=== PATIENT | female | born 1950 | race African-American/Black ===

== ENCOUNTER 2017-07-13 20:13 | Observation (INO) | payer MEDICARE ==
[2017-07-13] MEDS ORDERED: Lidocaine Viscous Sol 2% 15 ml UD Cup ONE (20:29)
[2017-07-13] MEDS ORDERED: Ketorolac Tromethamine 30 MG/ML VIAL ONE (20:29)
--- NOTE | 2017-07-13 22:55 | RAD ---
ABDOMEN ONE VIEW: History: Abdominal pain. Comparison: None. FINDINGS: There is moderate stool burden throughout the colon. No dilated air filled loops of large or small matt wel. No abnormal calcifications. There are phleboliths in the pelvis. IMPRESSION: 1. Moderate stool burdened throughout the colon. 2. No evidence for obstruction. POS: LINDA
[2017-07-14 00:05] LABS: #Monocytes 0.5 thou/uL (0.11-0.59); #Neutrophils 6.7 thou/uL (1.40-6.50); %Basophils 0.3 % (0.0-1.0); %Eosinophils 0.4 % (0.0-10.0); %Lymphocytes 11.8 % (21.0-51.0); %Monocytes 5.6 % (0.0-10.0); %Neutrophils 81.8 % (42.0-75.0); Hemoglobin 10.8 g/dL (12.0-16.0); Mean Corpuscular HGB CONC 32.1 g/dL (32.0-36.0); Mean Corpuscular Hemoglobin 28.2 pg (27.0-31.0); Mean Platelet Volume 7.2 fL (7.4-10.4); Platelet Count 265 thou/uL (130-400); RBC Distribution Width 12.8 % (11.5-14.5); Red Blood Cell (RBC) Count 3.83 mill/uL (4.20-5.40); White Blood Cell (WBC) Count 8.2 thou/uL (4.8-10.8)
[2017-07-14 00:24] LABS: ALT (SGPT) 9 U/L (8-55); AST (SGOT) 16 U/L (5-34); Albumin 3.6 g/dL (3.4-4.8); Alkaline Phosphatase 77 U/L (40-150); Anion Gap 13 mmol/L (10-20); BUN (Urea Nitrogen) 41 mg/dL (9.8-20.1); Bilirubin, Total 0.9 mg/dL (0.2-1.2); Calc. Creatinine Clearance 0 mL/min (70-130); Calcium 8.8 mg/dL (7.8-10.44); Carbon Dioxide 20 mmol/L (23-31); Chloride 112 mmol/L (98-107); Estimated GFR-MDRD 29; Glucose 110 mg/dL (80-115); Potassium 5.2 mmol/L (3.5-5.1); Protein, Total 6.6 g/dL (6.0-8.3); Sodium 140 mmol/L (136-145)
[2017-07-14] MEDS ORDERED: GoLYTELY 4,000 ml Bottle PO SCH (02:15)
[2017-07-14] MEDS: Sodium Chloride 0.9% 1,000 ML IV SCH ×2 (03:28→11:08)
[2017-07-14] MEDS ORDERED: Acetaminophen 325 MG TAB PO PRN (04:39)
[2017-07-14] MEDS ORDERED: Senokot 8.6 MG TAB PO PRN (04:39)
[2017-07-14] MEDS ORDERED: Acetaminophen 650 MG Suppository PR PRN (04:39)
[2017-07-14] MEDS ORDERED: Bisacodyl 5 MG TAB PO PRN (04:39)
[2017-07-14] MEDS ORDERED: Bisacodyl 10 MG SUPP PR PRN (04:39)
[2017-07-14 04:46] VITALS: BMI 37.8
[2017-07-14] MEDS ORDERED: HumaLOG 300 UNITS/3 ML VIAL SC PRN (04:49)
[2017-07-14] MEDS ORDERED: Dextrose 50% Abboject 50 ML SYRINGE SLOW IVP PRN (04:49)
[2017-07-14] MEDS ORDERED: Dextrose 5% in Water 1,000 ML IV PRN (04:49)
--- NOTE | 2017-07-14 05:36 | HP ---
PRIMARY CARE PHYSICIAN: Dr. Josse Simpson CHIEF COMPLAINT: Constipation. HISTORY OF PRESENT ILLNESS: Ms. Reed is a pleasant 67-year-old lady, who was seen at [facility] on 07/14/2017. She reports that she has neuropathic pain. She takes tramadol for the same. She does not take any s tool softeners. She presents with constipation over the last 1 week. She initially reported abdomin al discomfort when she came to the emergency room, with pain that was dull and rated as 10/10. By th e time I saw her, she was passing flatus and she reported that her pain had improved significantly an d is no longer present. REVIEW OF SYSTEMS: The following complete review of systems was negative, unless otherwise mentioned in the HPI or below: Constitutional: Weight loss or gain, ability to conduct usual activities. Skin: Rash, itching. Eyes: Double vision, pain. ENT/Mouth: Nose bleeding, neck stiffness, pain, tenderness. Cardiovascular: Palpitations, dyspnea on exertion, orthopnea. Respiratory: Shortness of breath, wheezing, cough, hemoptysis, fever or night sweats. Gastrointestinal: Poor appetite, abdominal pain, heartburn, nausea, vomiting, constipation, or diarrhea. Genitourinary: Urgency, frequency, dysuria, nocturia. Musculoskeletal: Pain, swelling. Neurologic/Psychiatric: Anxiety, depression. Allergy/Immunologic: Skin rash, bleeding tendency. PAST MEDICAL HISTORY: Significant for diabetes mellitus type 2, dyslipidemia, hypertension, peripher al neuropathy, coronary artery disease and congestive heart failure. PAST SURGICAL HISTORY: Cataract surgery and tubal ligation. PSYCHIATRIC HISTORY: Anxiety. SOCIAL HISTORY: The patient denies tobacco use, alcohol use or recreational drug use. FAMILY HISTORY: She denies any family history of coronary artery disease. ALLERGIES: CLINDAMYCIN, CRESTOR, HYDROCODONE, HYDROXYZINE, LOSUVASTATIN, VICODIN and VISTARIL. CURRENT MEDICATIONS: Include alprazolam 0.5 mg p.r.n., metolazone 2.5 mg 3 times a day, Zofran p.r.n ., furosemide 40 mg daily, lisinopril 40 mg daily, hydralazine 10 mg 4 times a day, clonidine 0.2 mg 3 times a day, zolpidem 10 mg daily, tramadol 100 mg p.r.n., amlodipine 10 mg daily, carvedilol 12.5 mg 2 times a day, and ranitidine 75 mg daily. PHYSICAL EXAMINATION: GENERAL: Ms. Reed is awake and alert, not in acute distress. VITAL SIGNS: Blood pressure is 194/80, pulse is 60. She is breathing at rate of 16, and saturating 95% on room air. She is afebrile. EYES: No scleral icterus. No conjunctival pallor. ENT: Moist mucosal membranes, no oropharyngeal erythema or exudates. NECK: Supple, nontender, normal range of movement. Trachea is midline. RESPIRATORY: Accessory muscles of breathing are not active. Chest wall movements are symmetric bila terally. LUNGS: Clear to auscultation, without wheeze, rhonchi or crepitations. CARDIOVASCULAR: S1 and S2 are heard, regular. LUNGS: Peripheral pulses palpable. No carotid bruit, no pericardial rub. ABDOMEN: Soft, distended, nontender, bowel sounds are heard, but sluggish, no hepatomegaly, no splen omegaly. NEUROLOGIC: Cranial nerves II-XII intact. Deep tendon reflexes are 2+. MUSCULOSKELETAL: Power is 5/5 in all 4 extremities. SKIN: No rashes or subcutaneous nodules. LYMPHATIC: No cervical lymphadenopathy. PSYCHIATRIC: Normal mood, normal affect, patient is oriented to person, place, and time. LABORATORY DATA: Ms. Reed' labs and investigations were reviewed. She had abdominal x-rays, whi ch showed moderate stool burden throughout the colon and no evidence for obstruction. She has phlebo liths in the pelvis. She has a normal white count, normocytic anemia with hemoglobin of 10.8, normal platelet count, normal sodium, slightly elevated potassium of 5.2, decreased carbon dioxide of 20, e levated blood urea nitrogen of 41, elevated creatinine of 2.10, last known creatinine 2.30 on 017 and an unremarkable liver profile. ASSESSMENT AND PLAN: Ms. Reed is a pleasant 67-year-old lady, who was seen at [facility] on 07/14/2017. Her problem list includes: 1. Constipation: She is presenting with opioid-induced constipation. We will admit her to the hosp ital for further management. Multiple items with laxatives and a manual disimpaction in the emergenc y room by the emergency room physician were unsuccessful. She is now being started on GoLYTELY. [facility] tro[facility]ology Service has been consulted by emergency room physician. 2. Hyperkalemia: Mild, administer Kayexalate and recheck. 3. Chronic kidney disease: Appears to be stable. 4. Diabetes mellitus. Start Accu-Cheks, insulin sliding scale. 5. Hypertension: Monitor vital signs, titrate antihypertensives as needed. 6. Congestive heart failure. Continue home medications, congestive heart failure appears to be stab le. Many thanks for allowing me to participate in Ms. Reed' care. Please feel free to contact me wit h any questions or concerns. LEVEL OF RISK: Moderate. LEVEL OF COMPLEXITY: Moderate.
[2017-07-14] MEDS ORDERED: FLU VACC TS2017-18 (>65YR) 0.5 ML SYRINGE IM ONE (09:00)
[2017-07-14] MEDS ORDERED: Prevnar 13-Val Conj/PF 0.5 ML SYRINGE IM ONE (09:00)
[2017-07-14] MEDS ORDERED: Docusate 100 MG CAP PO SCH (09:00)
[2017-07-14 13:22] VITALS: BP 152/68; TEMP 97.7
--- NOTE | 2017-07-14 16:33 | DIS ---
DATE OF ADMISSION: 07/14/2017 DATE OF DISCHARGE: 07/14/2017 DISCHARGE DIAGNOSES: 1. Fecal impaction. 2. Obstipation. 3. Chronic diastolic congestive heart failure. 4. Chronic respiratory failure with hypoxia. 5. Anemia of renal disease. 6. Diabetes mellitus type 2. 7. Hyperlipidemia. 8. Essential hypertension. 9. Peripheral neuropathy. 10. Obesity. CONSULTATIONS: None. PROCEDURES: None. HISTORY AND PHYSICAL: Ms. Reed is a 67-year-old female who came to the emergenc y department for constipation. She was placed in observation status. HOSPITAL COURSE: The patient was seen and examined by Dr. Vickers. She was started on GoLYTELY. Manu al disimpaction had failed. Subsequently, this afternoon, she had several large bowel movements and relieved her obstruction and was feeling markedly better. She was stable for discharge with outpatie nt followup. PHYSICAL EXAMINATION: The patient was seen and examined on the day of discharge. DISCHARGE PLAN AND DISPOSITION: Was discussed with the patient [id number] at the bedside. DISCHARGE MEDICATIONS: 1. Tylenol 500 mg p.o. q.6 hours as needed. 2. Albuterol sulfate 2 puffs inhaled q.6 hours as needed. 3. Xanax 0.5 mg p.o. daily p.r.n. anxiety. 4. Amlodipine 10 mg daily. 5. Carvedilol 12.5 mg p.o. b.i.d. 6. Clonidine 0.2 mg p.o. t.i.d. 7. Lasix 40 mg daily. 8. Hydralazine 10 mg p.o. q.i.d. 9. Lisinopril 40 mg daily. 10. Metolazone 2.5 mg p.o. t.i.d. 11. Zofran 4 mg p.o. q.6 hours p.r.n. nausea, vomiting. 10. Ranitidine 75 mg daily. 11. Bactrim-DS 1 tablet p.o. b.i.d. 12. Tramadol 100 mg p.o. t.i.d. p.r.n. pain. 13. Ambien 10 mg p.o. at bedtime. NEW MEDICATION: MiraLax 17 grams orally daily. Instructions to get over the counter. FOLLOWUP APPOINTMENTS Dr. Simpson, primary care physician in 1 week. DISCHARGE CONDITION: Stable. DISPOSITION: To be discharged home via private vehicle. DISCHARGE ACTIVITY: As tolerated. DISCHARGE DIET: Regular. Increase fiber recommended.
== END 2017-07-14 19:06 | disposition home or self-care (01) ==
LOC: ERS 20:13 → T4-B 07-14 00:49
PROVIDERS: ADMIT Internal Medicine; ATTEND Internal Medicine
DX: K56.41 Fecal impaction (principal); I13.0 Hypertensive heart and chronic kidney disease with heart failure and stage 1 through stage 4 chronic kidney disease, or unspecified chronic kidney disease; E11.22 Type 2 diabetes mellitus with diabetic chronic kidney disease; N18.9 Chronic kidney disease, unspecified; I50.32 Chronic diastolic (congestive) heart failure; J96.11 Chronic respiratory failure with hypoxia; D63.1 Anemia in chronic kidney disease; E78.5 Hyperlipidemia, unspecified; E11.42 Type 2 diabetes mellitus with diabetic polyneuropathy; I25.10 Atherosclerotic heart disease of native coronary artery without angina pectoris; E87.5 Hyperkalemia; F41.9 Anxiety disorder, unspecified; E66.9 Obesity, unspecified; Z68.37 Body mass index [BMI] 37.0-37.9, adult; Z88.1 Allergy status to other antibiotic agents; Z88.8 Allergy status to other drugs, medicaments and biological substances; Z79.899 Other long term (current) drug therapy; Z98.890 Other specified postprocedural states
CPT/HCPCS: 74018; 80053; 82962; 85025; 96361; 96374; 97139; 99285; G0378; 36415; 36416; 90471; 90670; 90682; G0008; G0009; J1885; Q2036

== ENCOUNTER 2018-08-07 20:04 | Emergency (ER) | payer MEDICARE ==
--- NOTE | 2018-08-07 20:50 | RAD ---
FPA and lateral chest: HISTORY: Cough COMPARISON: 04/06/2015 Stranding in both midlung brock appear to represent chronic stranding or atelectasis. No evidence of inflammatory infiltrate or effusion. Heart size is mildly prominent but stable from prior exam. Aort ic calcification again noted. IMPRESSION: Bilateral parenchymal stranding appears chronic. No evidence of acute process. Similar
[2018-08-07] MEDS ORDERED: Acetaminophen 500 MG TAB ONE (21:03)
[2018-08-07] MEDS ORDERED: Bicillin LA 1.2 MILLION UNITS/2 ML SYRINGE ONE (21:07)
== END 2018-08-07 21:48 | disposition home or self-care (01) ==
LOC: ERS 20:04
DX: J02.0 Streptococcal pharyngitis (principal); I11.0 Hypertensive heart disease with heart failure; I50.9 Heart failure, unspecified; F41.9 Anxiety disorder, unspecified; E11.42 Type 2 diabetes mellitus with diabetic polyneuropathy; Z79.899 Other long term (current) drug therapy
CPT/HCPCS: 71046; 87430; 87804; 96372; J0561

== ENCOUNTER 2020-05-01 19:32 | Inpatient (IN) | payer MEDICARE ==
[2020-05-01] MEDS ORDERED: Dexamethasone 4 mg/ml Vial ONE (20:01)
[2020-05-01] MEDS ORDERED: Acetaminophen 500 MG TAB ONE (20:01)
[2020-05-01] MEDS ORDERED: Azithromycin 500 MG VIAL ONE (20:01)
[2020-05-01] MEDS ORDERED: Ketorolac Tromethamine 30 MG/ML VIAL ONE (20:02)
[2020-05-01] MEDS ORDERED: cefTRIAXone\\ROCEPHIN 2 GM VIAL ONE (20:02)
[2020-05-01] MEDS ORDERED: Ondansetron PF 4 MG/2 ML Vial ONE (20:02)
[2020-05-01 20:22] LABS: #Lymphocytes 0.8 thou/uL (1.20-3.40); #Monocytes 0.4 thou/uL (0.11-0.59); %Basophils 0.2 % (0.0-1.0); %Eosinophils 0.3 % (0.0-10.0); %Monocytes 9.6 % (0.0-10.0); %Neutrophils 71.9 % (42.0-75.0); Hemoglobin 9.8 g/dL (12.0-16.0); Mean Corpuscular HGB CONC 32.4 g/dL (32.0-36.0); Mean Corpuscular Hemoglobin 27.5 pg (27.0-31.0); Mean Corpuscular Volume 84.8 fL (78.0-98.0); Mean Platelet Volume 8.1 fL (7.4-10.4); Platelet Count 210 thou/uL (130-400); RBC Distribution Width 13.9 % (11.5-14.5); Red Blood Cell (RBC) Count 3.55 mill/uL (4.20-5.40); White Blood Cell (WBC) Count 4.1 thou/uL (4.8-10.8)
[2020-05-01 20:31] LABS: INR-International Normal Ratio 1.1; PTT 40.5 sec (22.9-36.1); Prothrombin Time 14.1 sec (12.0-14.7)
[2020-05-01 20:48] LABS: ALT (SGPT) 7 U/L (8-55); AST (SGOT) 17 U/L (5-34); Albumin 3.6 g/dL (3.4-4.8); Alkaline Phosphatase 72 U/L (40-110); Anion Gap 17 mmol/L (10-20); BUN (Urea Nitrogen) 30 mg/dL (9.8-20.1); Bilirubin, Total 1.4 mg/dL (0.2-1.2); CK (CPK) 75 U/L (29-168); Calc. Creatinine Clearance 0 mL/min (70-130); Calcium 8.2 mg/dL (7.8-10.44); Carbon Dioxide 18 mmol/L (23-31); Chloride 106 mmol/L (98-107); Globulin 3.2 g/dL (2.4-3.5); Glucose 101 mg/dL (80-115); Potassium 4.2 mmol/L (3.5-5.1); Protein, Total 6.8 g/dL (6.0-8.3); Sodium 137 mmol/L (136-145)
--- NOTE | 2020-05-01 20:51 | RAD ---
EXAM: Single view of the chest HISTORY: Fever with dry cough for 2 days COMPARISON: 04/09/2015 FINDINGS: Single view of the chest shows an enlarged but stable cardiomediastinal silhouette. Athero sclerotic calcifications are seen in the aorta. Increased interstitial markings are present. Subtle superimposed bilateral lower lobe infiltrates may be present. Degenerative changes are seen in the spine. IMPRESSION: Possible bilateral lower lobe infiltrates.
[2020-05-01 21:05] LABS: CKMB 0.3 ng/mL (0-6.6)
[2020-05-01 22:09] LABS: SARS-CoV-2 NAA Rapid Test DETECTED (NotDetected)
--- NOTE | 2020-05-02 00:16 | PDOC.HHP ---
Hospitalist HPI - History of Present Illness Fever, dry cough History of Present Illness: This is a 70-year-old female patient with a history of type 2 diabetes, hyperlipidemia hypercholesterolemia and hypertension who presents with fevers and general unwellness as well as cough for the past couple of days. Chest x- ray on initial evaluation was concerning for basal pneumonia and her Covid test turned out positive. She has been otherwise in stable health condition until this event. She notes having taken all precautions and has not been in contact with anybody she knows was Covid. Her presenting troponin was slightly elevated at 0.08 which is around her baseline. TSH was 0.27, CBC showed creatinine of 2.44 which is around her baseline. WBC 4.1, hemoglobin 9.8 and platelets 210. She was started on Tylenol, azithromycin and ceftriaxone for pneumonia and also received Decadron. She received a liter of normal saline as well. Hospitalist team was consulted for admission Hospitalist ROS - Review of Systems Constitutional: reports: fever, weakness, malaise. denies: chills, sweats Respiratory: reports: cough, dry. denies: shortness of breath, hemoptysis, SOB with excertion Cardiovascular: denies: chest pain, palpitations, orthopnea, paroxysmal noc. dyspnea Gastrointestinal: denies: nausea, vomiting, abdominal pain Genitourinary: denies: dysuria, frequency, incontinence Neurological: denies: weakness, numbness, incoordination All other systems reviewed; all pertinent +/- noted in HPI/Subj - Medication Medications: Medications: Can refer to outpatient medication list. Allergies: Clindamycin, hydroxyzine Hospitalist History - Past Medical History Other Medical History: CKD, hypertension, hyperlipidemia - Past Surgical History Other Surgical History: Cataract surgery, tubal ligation. - Family History Family History: reports: no pertinent history - Social History Smoking Status: Never smoker Alcohol: reports: None Activity level: independent ambulation - Exam General Appearance: awake alert Eye: PERRL, anicteric sclera Neck: supple, symmetric, no JVD, no thyromegaly Heart: RRR, no murmur, no gallops, no rubs Respiratory: CTAB, no wheezes, no rales, no ronchi Gastrointestinal: soft, non-tender, non-distended, normal bowel sounds Extremities: no cyanosis, no clubbing, no edema Neurological: cranial nerve grossly intact, no weakness, no focal deficits Musculoskeletal: normal tone, normal strength, no muscle wasting Psychiatric: normal affect, normal behavior, A&O x 3 Hospitalist Results - Labs Result Diagrams: 05/01/20 20:12 05/01/20 20:12 Lab results: WBC 4.1 thou/uL (4.8-10.8) L 05/01/20 20:12 Hgb 9.8 g/dL (12.0-16.0) L 05/01/20 20:12 Hct 30.2 % (36.0-47.0) L 05/01/20 20:12 MCV 84.8 fL (78.0-98.0) 05/01/20 20:12 Plt Count 210 thou/uL (130-400) 05/01/20 20:12 Neutrophils % 71.9 % (42.0-75.0) 05/01/20 20:12 Sodium 137 mmol/L (136-145) 05/01/20 20:12 Potassium 4.2 mmol/L (3.5-5.1) 05/01/20 20:12 Chloride 106 mmol/L (98-107) 05/01/20 20:12 Carbon Dioxide 18 mmol/L (23-31) L 05/01/20 20:12 BUN 30 mg/dL (9.8-20.1) H 05/01/20 20:12 Creatinine 2.44 mg/dL (0.6-1.1) H 05/01/20 20:12 Glucose 101 mg/dL (80-115) 05/01/20 20:12 Lactic Acid 0.9 mmol/L (0.5-2.2) 05/01/20 20:12 Calcium 8.2 mg/dL (7.8-10.44) 05/01/20 20:12 Total Bilirubin 1.4 mg/dL (0.2-1.2) H 05/01/20 20:12 AST 17 U/L (5-34) 05/01/20 20:12 ALT 7 U/L (8-55) L 05/01/20 20:12 Alkaline Phosphatase 72 U/L (40-110) 05/01/20 20:12 Creatine Kinase 75 U/L (29-168) 05/01/20 20:12 CK-MB (CK-2) 0.3 ng/mL (0-6.6) 05/01/20 20:12 Troponin I 0.080 ng/mL (< 0.028) H 05/01/20 20:12 Serum Total Protein 6.8 g/dL (6.0-8.3) 05/01/20 20:12 Albumin 3.6 g/dL (3.4-4.8) 05/01/20 20:12 Hospitalist H&P A/P - Plan Plan: This is a 70-year-old female patient with a history of CKD, hyperlipidemia who presents with fever and dry cough for couple of days. Initial assessment shows basilar pneumonia with positive Covid test. Pneumonia due to Covid Started on zinc and vitamins. Hold off remdesivir and steroids RCA still requiring oxygen. We will check ferritin and CRP and D-dimer Possible community-acquired pneumonia We will continue on azithromycin and ceftriaxone for now De-escalate as needed. CKD Renal function stable Monitor BMP Hypertension Resume home medications once verified. VT prophylaxisHeparin CODE STATUSfull code
[2020-05-02 05:25] LABS: #Lymphocytes 0.7 thou/uL (1.20-3.40); #Monocytes 0.1 thou/uL (0.11-0.59); #Neutrophils 3.2 thou/uL (1.40-6.50); %Eosinophils 0.1 % (0.0-10.0); %Lymphocytes 17.1 % (21.0-51.0); %Monocytes 2.3 % (0.0-10.0); %Neutrophils 80.5 % (42.0-75.0); Hemoglobin 10.2 g/dL (12.0-16.0); Mean Corpuscular HGB CONC 32.3 g/dL (32.0-36.0); Mean Corpuscular Hemoglobin 27.9 pg (27.0-31.0); Mean Corpuscular Volume 86.3 fL (78.0-98.0); Mean Platelet Volume 8.4 fL (7.4-10.4); Platelet Count 203 thou/uL (130-400); RBC Distribution Width 13.8 % (11.5-14.5); Red Blood Cell (RBC) Count 3.68 mill/uL (4.20-5.40)
[2020-05-02 05:47] LABS: Anion Gap 19 mmol/L (10-20); BUN (Urea Nitrogen) 39 mg/dL (9.8-20.1); Calc. Creatinine Clearance 28 mL/min (70-130); Calcium 7.8 mg/dL (7.8-10.44); Carbon Dioxide 16 mmol/L (23-31); Chloride 107 mmol/L (98-107); Glucose 185 mg/dL (80-115); Potassium 4.7 mmol/L (3.5-5.1); Sodium 137 mmol/L (136-145)
[2020-05-02] MEDS: Ascorbic Acid 500 mg Chewable Tablet PO SCH (08:55)
[2020-05-02] MEDS: Zinc Sulfate 220 MG CAP PO SCH (08:55)
[2020-05-02] MEDS: Heparin 5,000 UNITS/ML VIAL SC SCH ×3 (08:55→20:59)
[2020-05-02] MEDS: Cholecalciferol (Vitamin D3) 400 UNITS TAB PO SCH (08:55)
[2020-05-02] MEDS ORDERED: FLU VACC QS2020-21(65YR UP)/PF 240 MCG/0.7 ML SYRINGE IM ONE (09:00)
[2020-05-02] MEDS ORDERED: ALPRAZolam 0.5 MG TAB PO SCH (12:30)
[2020-05-02] MEDS ORDERED: Fleet Enema 133 ML BOT PR SCH (14:30)
[2020-05-02] MEDS ORDERED: hydrALAZINE 25 MG TAB PO SCH ×3 (14:30→21:00)
--- NOTE | 2020-05-02 16:09 | PDOC.BPN ---
- Brief Progress Note Encounter Date: 05/02/20 Encounter Time: 12:00 F/u: COVID The patient states she thought she was improving, but when she ambulated to the bathroom, she almost passed out. She does not know if her oxygen level was low. She denies cough , has some SOB Patient states she took her home BP medicines this morning without permission. She reports history of malignant hypertension with BP of 245/120. I checked her BP at 12:00 and it was 154 systolic, although cuff was slightly small Patient reports no BM in 3 weeks. She says miralax does nothing for her and requested an enema General: alert, awake, oriented times three. OVerweight CVS: RRR, no murmurs, rubs, gallops Lungs; CtAB Abdomen: +BS, soft, nontender, nondistended Extremities: no edema This is a 70 year old female with past medical history of hypertension, diabetes who presented to ED with fevers, malaise and cough. She was admitted. COVID pneumonia - continue supportive care. Will also continue ceftriaxone and azithromycin empiically Hypertension - resume coreg, hydralazine, amlodipine Constipation - will order enema Type II DM - continue sliding scale insulin CKD - stable, creatinine 2.5 Anemia - Hb stable, will monitor Leukopenia - WBC 4, likely from COVID, will monitor
[2020-05-02] MEDS: Carvedilol 6.25 MG TAB PO SCH (19:11)
[2020-05-02] MEDS ORDERED: Magnesium Citrate 300 ML BOT PO PRN (19:40)
[2020-05-02] MEDS: cefTRIAXone\\ROCEPHIN 1 GM in Sodium Chloride 0.9% 100 ML IVPB SCH (19:42)
[2020-05-02] MEDS: Azithromycin 500 MG in Sodium Chloride 0.9% 250 ML 250 ML IVPB SCH (20:57)
[2020-05-02] MEDS: traMADol HCl 50 MG TAB PO PRN (20:58)
[2020-05-02] MEDS: Zolpidem Tartrate 5 MG TAB PO PRN (20:58)
[2020-05-02] MEDS: cloNIDine 0.2 MG TAB PO SCH (20:58)
[2020-05-02] MEDS: ALPRAZolam 0.5 MG TAB PO SCH (20:59)
[2020-05-03 06:09] LABS: Hemoglobin 9.6 g/dL (12.0-16.0); Mean Corpuscular HGB CONC 31.8 g/dL (32.0-36.0); Mean Corpuscular Hemoglobin 27.3 pg (27.0-31.0); Mean Corpuscular Volume 85.7 fL (78.0-98.0); Mean Platelet Volume 8.6 fL (7.4-10.4); Platelet Count 228 thou/uL (130-400); RBC Distribution Width 13.9 % (11.5-14.5); Red Blood Cell (RBC) Count 3.52 mill/uL (4.20-5.40); White Blood Cell (WBC) Count 8.2 thou/uL (4.8-10.8)
[2020-05-03 06:40] LABS: BUN (Urea Nitrogen) 54 mg/dL (9.8-20.1); Calc. Creatinine Clearance 27 mL/min (70-130); Calcium 7.7 mg/dL (7.8-10.44); Chloride 108 mmol/L (98-107); Glucose 129 mg/dL (80-115); Potassium 4.3 mmol/L (3.5-5.1); Sodium 138 mmol/L (136-145)
[2020-05-03 06:54] LABS: Free T4 (Free Thyroxine) 1.12 ng/dL (0.70-1.48); Thyroid Stimulating Hormone 0.1349 uIU/mL (0.35-4.94)
[2020-05-03 07:06] LABS: Anion Gap 16 mmol/L (10-20); Carbon Dioxide 18 mmol/L (23-31)
[2020-05-03] MEDS: Cholecalciferol (Vitamin D3) 400 UNITS TAB PO SCH (10:01)
[2020-05-03] MEDS: cloNIDine 0.2 MG TAB PO SCH ×2 (10:02→20:38)
[2020-05-03] MEDS: Folic Acid 1 MG TAB PO SCH (10:02)
[2020-05-03] MEDS: Carvedilol 6.25 MG TAB PO SCH ×2 (10:02→17:09)
[2020-05-03] MEDS: Ascorbic Acid 500 mg Chewable Tablet PO SCH ×2 (10:02→13:38)
[2020-05-03] MEDS: hydrALAZINE 25 MG TAB PO SCH ×4 (10:03→20:38)
[2020-05-03] MEDS: Atorvastatin Calcium 40 MG TAB PO SCH ×2 (10:05→13:38)
[2020-05-03] MEDS: Zinc Sulfate 220 MG CAP PO SCH (10:05)
[2020-05-03] MEDS: Heparin 5,000 UNITS/ML VIAL SC SCH ×4 (10:05→20:41)
[2020-05-03] MEDS: Acetaminophen 325 MG TAB PO PRN ×2 (12:46→17:11)
[2020-05-03] MEDS ORDERED: traMADol HCl 50 MG TAB PO SCH (13:15)
[2020-05-03] MEDS: ALPRAZolam 0.5 MG TAB PO SCH ×2 (13:33→20:38)
--- NOTE | 2020-05-03 16:18 | PDOC.HOSPP ---
- Subjective Encounter Date: 05/03/20 Encounter Time: 08:00 Subjective: F/u: COVID She is starting to develop a dry cough. She also spiked a fever to 102 today and feels warm. She states that she has feverish symptoms when she is in pain. She still has severe fatigue just changing her bedsheets and doing ADL. All of her family members tested positive for COVID The patient says she feels weak. She complained of severe shooting nerve pain in her right leg, states she takes tramadol 100 mg at night and prn 100 mg during the day time Hypertension - patient refused her afternoon hydralazine per nursing Constipation - the patient had an enema yesterday but had no bowel movement. SHe is drinking some mag citrate now. Explained that narcotics could be making her constipated as well - Objective Vital Signs & Weight: Vital Signs (12 hours) Temp Pulse Resp BP Pulse Ox 05/03/20 12:54 102.5 F H 58 L 18 167/75 H 98 05/03/20 09:45 99.1 F 57 L 16 185/86 H 100 05/03/20 04:18 98.4 F 51 L 16 145/64 H 100 Weight Admit Weight 186 lb 4.8 oz Weight 186 lb 4.8 oz I&O: 05/02/20 05/03/20 05/04/20 06:59 06:59 06:59 Intake Total 120 850 Balance 120 850 Result Diagrams: 05/03/20 05:09 05/03/20 05:09 Hospitalist ROS - Review of Systems Constitutional: denies: fever, chills - Medication Medications: Active Medications Generic Name Dose Route Start Last Admin Trade Name Freq PRN Reason Stop Dose Admin Acetaminophen 650 mg 05/02/20 11:40 05/03/20 12:46 Acetaminophen 325 Mg Tab PO 650 mg Q6H PRN Administration Mild Pain Alprazolam 0.5 mg 05/02/20 21:00 05/03/20 13:33 Alprazolam 0.5 Mg Tab PO Not Given BID ESTER Ascorbic Acid 1,000 mg 05/02/20 09:00 05/03/20 13:38 Ascorbic Acid 500 Mg Chewable Tablet PO Not Given DAILY ESTER Atorvastatin Calcium 40 mg 05/03/20 09:00 05/03/20 13:38 Atorvastatin Calcium 40 Mg Tab PO Not Given DAILY ESTER Carvedilol 6.25 mg 05/02/20 17:00 05/03/20 10:02 Carvedilol 6.25 Mg Tab PO 6.25 mg BID- ESTER Administration Cholecalciferol 400 units 05/02/20 09:00 05/03/20 10:01 Cholecalciferol (Vitamin D3) 400 Units Tab PO 400 units DAILY ESTER Administration Clonidine 0.2 mg 05/02/20 21:00 05/03/20 10:02 Clonidine 0.2 Mg Tab PO 0.2 mg BID ESTER Administration Folic Acid 1 mg 05/03/20 09:00 05/03/20 10:02 Folic Acid 1 Mg Tab PO 1 mg DAILY ESTER Administration Heparin Sodium (Porcine) 5,000 units 05/02/20 09:00 05/03/20 14:34 Heparin 5,000 Units/Ml Vial SC Not Given TID ESTER Hydralazine HCl 75 mg 05/03/20 09:00 05/03/20 14:34 Hydralazine 25 Mg Tab PO Not Given TID ESTER Ceftriaxone Sodium 1 gm/ 100 mls @ 200 mls/hr 05/02/20 20:00 05/02/20 19:42 Sodium Chloride IVPB 100 mls 2000 ESTER Administration Azithromycin 500 mg/ Sodium 250 mls @ 250 mls/hr 05/02/20 21:00 05/02/20 20:57 Chloride IVPB 250 mls 2100 ESTER Administration Tramadol HCl 50 mg 05/02/20 19:40 05/02/20 20:58 Tramadol Hcl 50 Mg Tab PO 50 mg HS PRN Administration Severe Pain (7-10) Zinc Sulfate 220 mg 05/02/20 09:00 05/03/20 10:05 Zinc Sulfate 220 Mg Cap PO 220 mg DAILY ESTER Administration Zolpidem Tartrate 10 mg 05/02/20 19:39 05/02/20 20:58 Zolpidem Tartrate 5 Mg Tab PO 10 mg HSPRN PRN Administration Insomnia - Exam General Appearance: NAD, awake alert Eye: PERRL, anicteric sclera ENT: normocephalic atraumatic, no oropharyngeal lesions Neck: no JVD Heart: RRR, no murmur, no gallops, no rubs, normal peripheral pulses Respiratory: CTAB, no wheezes, no rales, no ronchi Gastrointestinal: soft, non-tender, non-distended, normal bowel sounds Extremities: no cyanosis, no clubbing, no edema Skin: normal turgor, no lesions, no rashes Hosp A/P - Plan This is a 70 year old female with past medical history of hypertension, diabetes who presented to ED with fevers, malaise and cough. She was admitted. COVID pneumonia - continue supportive care. Will continue ceftriaxone and azithromycin empiicall y Hypertension - resume coreg, hydralazine, amlodipine Constipation - enema ordered. Magnesium citrate ordered. Type II DM - continue sliding scale insulin CKD - stable, creatinine 2.5 Anemia - Hb stable, will monitor Leukopenia - WBC 4, likely from COVID, will monitor
[2020-05-03] MEDS ORDERED: Ondansetron ORAL SOLN. 4 MG/5 ML UDCUP PO PRN (17:50)
[2020-05-03] MEDS: Azithromycin 500 MG in Sodium Chloride 0.9% 250 ML 250 ML IVPB SCH (20:37)
[2020-05-03] MEDS: cefTRIAXone\\ROCEPHIN 1 GM in Sodium Chloride 0.9% 100 ML IVPB SCH (20:38)
[2020-05-03] MEDS: Zolpidem Tartrate 5 MG TAB PO PRN (20:40)
[2020-05-03] MEDS: traMADol HCl 50 MG TAB PO PRN (20:42)
[2020-05-04] MEDS ORDERED: Acetaminophen 500 MG TAB PO SCH (00:15)
[2020-05-04 05:19] LABS: Hemoglobin 9.3 g/dL (12.0-16.0); Mean Corpuscular HGB CONC 31.7 g/dL (32.0-36.0); Mean Corpuscular Hemoglobin 27.3 pg (27.0-31.0); Mean Corpuscular Volume 85.9 fL (78.0-98.0); Mean Platelet Volume 8.7 fL (7.4-10.4); Platelet Count 182 thou/uL (130-400); RBC Distribution Width 13.8 % (11.5-14.5); Red Blood Cell (RBC) Count 3.39 mill/uL (4.20-5.40); White Blood Cell (WBC) Count 4.2 thou/uL (4.8-10.8)
[2020-05-04] MEDS: Carvedilol 6.25 MG TAB PO SCH ×3 (07:29→17:10)
[2020-05-04] MEDS: Ascorbic Acid 500 mg Chewable Tablet PO SCH ×2 (07:29→08:08)
[2020-05-04] MEDS: ALPRAZolam 0.5 MG TAB PO SCH ×2 (07:29→22:14)
[2020-05-04] MEDS: Folic Acid 1 MG TAB PO SCH (07:30)
[2020-05-04] MEDS: Cholecalciferol (Vitamin D3) 400 UNITS TAB PO SCH (07:30)
[2020-05-04] MEDS: Atorvastatin Calcium 40 MG TAB PO SCH (07:30)
[2020-05-04] MEDS: Heparin 5,000 UNITS/ML VIAL SC SCH ×3 (07:30→21:20)
[2020-05-04] MEDS: cloNIDine 0.2 MG TAB PO SCH ×2 (07:30→22:14)
[2020-05-04] MEDS: hydrALAZINE 25 MG TAB PO SCH ×3 (07:31→22:14)
[2020-05-04] MEDS: Zinc Sulfate 220 MG CAP PO SCH (07:31)
--- NOTE | 2020-05-04 15:45 | PDOC.HOSPP ---
- Subjective Encounter Date: 05/04/20 Encounter Time: 08:00 Subjective: F/u: COVID The patient states she still has some fatigue on exertion. She is developing a mild cough. SHe did spike a fever to 103 overnight SHe doesn't feel like eating, but is requesting a fruit cup and orange juice - Objective Vital Signs & Weight: Vital Signs (12 hours) Temp Pulse Resp BP BP BP Pulse Ox 05/04/20 13:30 99.3 F 56 L 20 149/68 H 99 05/04/20 08:07 137/66 05/04/20 08:05 99.9 F H 53 L 20 137/66 95 05/04/20 07:31 53 L 05/04/20 03:46 99.7 F H 53 L 18 141/53 H 92 L Weight Admit Weight 186 lb 4.8 oz Weight 186 lb 4.8 oz I&O: 05/03/20 05/04/20 05/05/20 06:59 06:59 06:59 Intake Total 850 200 Output Total 200 Balance 850 -200 200 Result Diagrams: 05/04/20 04:54 05/03/20 05:09 Hospitalist ROS - Review of Systems Constitutional: denies: fever, chills - Medication Medications: Active Medications Generic Name Dose Route Start Last Admin Trade Name Freq PRN Reason Stop Dose Admin Acetaminophen 650 mg 05/02/20 11:40 05/03/20 17:11 Acetaminophen 325 Mg Tab PO 650 mg Q6H PRN Administration Mild Pain Alprazolam 0.5 mg 05/02/20 21:00 05/04/20 07:29 Alprazolam 0.5 Mg Tab PO 0.5 mg BID ESTER Administration Ascorbic Acid 1,000 mg 05/02/20 09:00 05/04/20 08:08 Ascorbic Acid 500 Mg Chewable Tablet PO Not Given DAILY ESTER Atorvastatin Calcium 40 mg 05/03/20 09:00 05/04/20 07:30 Atorvastatin Calcium 40 Mg Tab PO 40 mg DAILY ESTER Administration Carvedilol 6.25 mg 05/02/20 17:00 05/04/20 08:07 Carvedilol 6.25 Mg Tab PO Not Given BID-[facility] Cholecalciferol 400 units 05/02/20 09:00 05/04/20 07:30 Cholecalciferol (Vitamin D3) 400 Units Tab PO 400 units DAILY ESTER Administration Clonidine 0.2 mg 05/02/20 21:00 05/04/20 07:30 Clonidine 0.2 Mg Tab PO 0.2 mg BID ESTER Administration Folic Acid 1 mg 05/03/20 09:00 05/04/20 07:30 Folic Acid 1 Mg Tab PO 1 mg DAILY ESTER Administration Heparin Sodium (Porcine) 5,000 units 05/02/20 09:00 05/04/20 07:30 Heparin 5,000 Units/Ml Vial SC 5,000 units TID ESTER Administration Hydralazine HCl 75 mg 05/03/20 09:00 05/04/20 07:31 Hydralazine 25 Mg Tab PO 75 mg TID ESTER Administration Ceftriaxone Sodium 1 gm/ 100 mls @ 200 mls/hr 05/02/20 20:00 05/03/20 20:38 Sodium Chloride IVPB 100 mls 2000 ESTER Administration Azithromycin 500 mg/ Sodium 250 mls @ 250 mls/hr 05/02/20 21:00 05/03/20 2 0:37 Chloride IVPB 250 mls 2100 ESTER Administration Magnesium Citrate 300 ml 05/02/20 19:40 05/04/20 08:13 Magnesium Citrate 300 Ml Bot PO 300 ml DAILYPRN PRN Administration Constipation Zinc Sulfate 220 mg 05/02/20 09:00 05/04/20 07:31 Zinc Sulfate 220 Mg Cap PO 220 mg DAILY ESTER Administration Zolpidem Tartrate 10 mg 05/02/20 19:39 05/03/20 20:40 Zolpidem Tartrate 5 Mg Tab PO 10 mg HSPRN PRN Administration Insomnia - Exam General Appearance: NAD, awake alert Eye: PERRL, anicteric sclera ENT: normocephalic atraumatic, no oropharyngeal lesions Neck: no JVD Heart: RRR, no murmur, no gallops, no rubs Respiratory: CTAB, no wheezes, no rales, no ronchi Gastrointestinal: soft, non-tender, non-distended, normal bowel sounds, diminished bowl sounds Extremities: no cyanosis, no clubbing, no edema Skin: normal turgor, no lesions, no rashes Neurological: cranial nerve grossly intact, normal sensation to touch, no weakness Musculoskeletal: normal tone, normal strength, no muscle wasting Hosp A/P - Plan This is a 70 year old female with past medical history of hypertension, diabetes who presented to ED with fevers, malaise and cough. She was admitted. COVID pneumonia - continue supportive care. Will continue ceftriaxone and azithromycin empirically day 3 Hypertension - continue coreg, hydralazine, amlodipine Constipation - magnesium citrate prn Type II DM - continue sliding scale insulin CKD - stable, creatinine 2.66 Anemia - Hb stable, will monitor Leukopenia - WBC 4, likely from COVID, will monitor
[2020-05-04] MEDS: traMADol HCl 50 MG TAB PO PRN (17:23)
[2020-05-04] MEDS: Acetaminophen 325 MG TAB PO PRN (17:25)
[2020-05-04] MEDS: cefTRIAXone\\ROCEPHIN 1 GM in Sodium Chloride 0.9% 100 ML IVPB SCH (19:56)
[2020-05-04] MEDS: Azithromycin 500 MG in Sodium Chloride 0.9% 250 ML 250 ML IVPB SCH (21:20)
[2020-05-04] MEDS: Zolpidem Tartrate 5 MG TAB PO PRN (22:14)
[2020-05-05] MEDS: Acetaminophen 325 MG TAB PO PRN ×3 (00:14→07:38)
[2020-05-05] MEDS: traMADol HCl 50 MG TAB PO SCH ×2 (01:53→20:47)
[2020-05-05] MEDS ORDERED: Albuterol Sulfate 2.5 mg/3 ml Neb NEB PRN (03:51)
[2020-05-05] MEDS ORDERED: Dexamethasone 4 mg/ml Vial SLOW IVP SCH (04:00)
[2020-05-05 05:25] LABS: Hemoglobin 8.6 g/dL (12.0-16.0)
[2020-05-05 05:41] LABS: Lactic Acid 0.5 mmol/L (0.5-2.2)
[2020-05-05 05:45] LABS: Anion Gap 14 mmol/L (10-20); BUN (Urea Nitrogen) 50 mg/dL (9.8-20.1); Calc. Creatinine Clearance 26 mL/min (70-130); Calcium 7.2 mg/dL (7.8-10.44); Carbon Dioxide 18 mmol/L (23-31); Chloride 109 mmol/L (98-107); Glucose 92 mg/dL (80-115); Magnesium 2.3 mg/dL (1.6-2.6); Potassium 4.4 mmol/L (3.5-5.1); Sodium 137 mmol/L (136-145)
[2020-05-05] MEDS: Carvedilol 6.25 MG TAB PO SCH ×4 (06:56→17:30)
[2020-05-05] MEDS: Ascorbic Acid 500 mg Chewable Tablet PO SCH ×2 (07:37→08:35)
[2020-05-05] MEDS: cloNIDine 0.2 MG TAB PO SCH ×2 (07:37→20:46)
[2020-05-05] MEDS: Zinc Sulfate 220 MG CAP PO SCH ×2 (07:38→08:35)
[2020-05-05] MEDS: Folic Acid 1 MG TAB PO SCH ×2 (07:38→08:35)
[2020-05-05] MEDS: Atorvastatin Calcium 40 MG TAB PO SCH (07:38)
[2020-05-05] MEDS: hydrALAZINE 25 MG TAB PO SCH ×3 (07:38→20:47)
[2020-05-05] MEDS: Cholecalciferol (Vitamin D3) 400 UNITS TAB PO SCH ×2 (07:39→08:35)
[2020-05-05] MEDS: Heparin 5,000 UNITS/ML VIAL SC SCH ×3 (07:39→21:58)
[2020-05-05] MEDS: ALPRAZolam 0.5 MG TAB PO SCH ×3 (07:39→21:57)
--- NOTE | 2020-05-05 07:39 | RAD ---
Chest AP view INDICATION: Hypoxia COMPARISON: May 01, 2020 FINDINGS: Lungs: There is worsening bilateral lower lobe and right upper lobe airspace disease consistent with worsening pneumonia Cardiac silhouette: There is stable mild cardiomegaly Pulmonary vasculature: Normal Pleural spaces: No pleural effusion or pneumothorax is demonstrated. Upper abdomen: No abnormality seen. Osseous structures: No acute osseous abnormality. Additional findings: None. IMPRESSION: Worsening pneumonia
[2020-05-05] MEDS: Albuterol 200 PUFF (6.7GM INHALER) INH PRN (07:40)
--- NOTE | 2020-05-05 14:37 | PDOC.HOSPP ---
- Subjective Encounter Date: 05/05/20 Encounter Time: 12:45 Subjective: get sob on minimal exertion is trying to ambulate in the room she lives alone at home, all her other family members are sick with covid and are home quarantining - Objective Vital Signs & Weight: Vital Signs (12 hours) Temp Pulse Resp BP BP Pulse Ox 05/05/20 12:40 98.3 F 49 L 18 138/62 95 05/05/20 08:00 93 L 05/05/20 07:55 98.3 F 51 L 16 151/70 H 93 L 05/05/20 07:37 135/68 05/05/20 06:56 135/68 05/05/20 04:49 100.6 F H 05/05/20 04:19 101.1 F H 05/05/20 04:00 92 L 05/05/20 03:33 92 L 05/05/20 03:26 101.1 F H 57 L 16 136/65 85 L Weight Admit Weight 186 lb 4.8 oz Weight 186 lb 4.8 oz I&O: 05/04/20 05/05/20 05/06/20 06:59 06:59 06:59 Intake Total 250 Output Total 200 Balance -200 250 Result Diagrams: 05/05/20 05:11 05/05/20 05:11 Hospitalist ROS - Medication Medications: Active Medications Generic Name Dose Route Start Last Admin Trade Name Freq PRN Reason Stop Dose Admin Acetaminophen 650 mg 05/05/20 03:50 05/05/20 04:19 Acetaminophen 325 Mg Tab PO 650 mg Q4H PRN Administration Mild Pain Albuterol Sulfate 2 puff 05/05/20 03:59 05/05/20 07:40 Albuterol 200 Puff (6.7gm Inhaler) INH 2 puff [id number] PRN Administration Wheezing Alprazolam 0.5 mg 05/02/20 21:00 05/05/20 07:39 Alprazolam 0.5 Mg Tab PO 0.5 mg BID ESTER Administration Ascorbic Acid 1,000 mg 05/02/20 09:00 05/05/20 08:35 Ascorbic Acid 500 Mg Chewable Tablet PO Not Given DAILY ESTER Atorvastatin Calcium 40 mg 05/03/20 09:00 05/05/20 07:38 Atorvastatin Calcium 40 Mg Tab PO 40 mg DAILY ESTER Administration Carvedilol 6.25 mg 05/02/20 17:00 05/05/20 08:34 Carvedilol 6.25 Mg Tab PO Not Given BID-[facility] Cholecalciferol 400 units 05/02/20 09:00 05/05/20 08:35 Cholecalciferol (Vitamin D3) 400 Units Tab PO Not Given DAILY ESTER Clonidine 0.2 mg 05/02/20 21:00 05/05/20 07:37 Clonidine 0.2 Mg Tab PO 0.2 mg BID ESTER Administration Folic Acid 1 mg 05/03/20 09:00 05/05/20 08:35 Folic Acid 1 Mg Tab PO Not Given DAILY ESTER Heparin Sodium (Porcine) 5,000 units 05/02/20 09:00 05/05/20 07:39 Heparin 5,000 Units/Ml Vial SC 5,000 units TID ESTER Administration Hydralazine HCl 75 mg 05/03/20 09:00 05/05/20 07:38 Hydralazine 25 Mg Tab PO 75 mg TID ESTER Administration Ceftriaxone Sodium 1 gm/ 100 mls @ 200 mls/hr 05/02/20 20:00 05/04/20 19:56 Sodium Chloride IVPB 100 mls 2000 ESTER Administration Azithromycin 500 mg/ Sodium 250 mls @ 250 mls/hr 05/02/20 21:00 05/04/20 21:20 Chloride IVPB 250 mls 2100 ESTER Administration Magnesium Citrate 300 ml 05/02/20 19:40 05/04/20 08:13 Magnesium Citrate 300 Ml Bot PO 300 ml DAILYPRN PRN Administration Constipation Tramadol HCl 100 mg 05/03/20 23:21 05/04/20 17:23 Tramadol Hcl 50 Mg Tab PO 100 mg Q6H PRN Administration Pain Tramadol HCl 100 mg 05/04/20 21:00 05/05/20 01:53 Tramadol Hcl 50 Mg Tab PO Not Given HS [facility] Zinc Sulfate 220 mg 05/02/20 09:00 05/05/20 08:35 Zinc Sulfate 220 Mg Cap PO Not Given DAILY ESTER Zolpidem Tartrate 10 mg 05/02/20 19:39 05/04/20 22:14 Zolpidem Tartrate 5 Mg Tab PO 10 mg HSPRN PRN Administration Insomnia - Exam General Appearance: awake alert Eye: PERRL, anicteric sclera ENT: no oropharyngeal lesions, moist mucosa Neck: supple, no JVD Heart: RRR, no murmur Respiratory: no wheezes, rales, rhonchi Gastrointestinal: soft, non-tender, non-distended, normal bowel sounds Extremities: no cyanosis, no edema Neurological: cranial nerve grossly intact, no focal deficits Psychiatric: normal affect, A&O x 3 Hosp A/P (1) Pneumonia due to COVID-19 virus Code(s): U07.1 - COVID-19; J12.89 - OTHER VIRAL PNEUMONIA Status: Acute (2) Acute kidney injury superimposed on CKD Code(s): N17.9 - ACUTE KIDNEY FAILURE, UNSPECIFIED; N18.9 - CHRONIC KIDNEY DISEASE, UNSPECIFIED Status: Acute (3) Acute respiratory failure with hypoxia Code(s): J96.01 - ACUTE RESPIRATORY FAILURE WITH HYPOXIA Status: Acute (4) HTN (hypertension) Code(s): I10 - ESSENTIAL (PRIMARY) HYPERTENSION Status: Chronic Qualifiers: Hypertension type: essential hypertension Qualified Code(s): I10 - Ess ential (primary) hypertension (5) Dyslipidemia Code(s): E78.5 - HYPERLIPIDEMIA, UNSPECIFIED Status: Chronic (6) Peripheral neuropathy Code(s): G62.9 - POLYNEUROPATHY, UNSPECIFIED Status: Chronic Qualifiers: Peripheral neuropathy type: polyneuropathy, unspecified Qualified Code(s): G62.9 - Polyneuropathy, unspecified (7) Anemia of renal disease Code(s): D63.1 - ANEMIA IN CHRONIC KIDNEY DISEASE Status: Chronic (8) Metabolic acidosis Code(s): E87.2 - ACIDOSIS Status: Acute - Plan is on 3 lts nc, cxr shows worsening infiltrates, continue dexamethasone, dc antibiotics on coreg, clonidine and hydralazine, she also takes ambien chronically for insomnia at 10mg will add iv fluids with sod bicarb, d/w is at high risk for complications with multiple comorbid conditions dc plan likely in 36-48hrs on home O2.
[2020-05-05] MEDS ORDERED: Sodium Bicarbonate 50 MEQ in Dextrose 5% in Water 1,000 ML IV SCH (14:45)
[2020-05-05] MEDS ORDERED: Sodium Bicarbonate 150 MEQ in Dextrose 5% in Water 1,000 ML IV SCH (15:41)
[2020-05-05] MEDS: Zolpidem Tartrate 5 MG TAB PO PRN (20:53)
[2020-05-06] MEDS: Cholecalciferol (Vitamin D3) 400 UNITS TAB PO SCH (08:28)
[2020-05-06] MEDS: hydrALAZINE 25 MG TAB PO SCH ×3 (08:29→20:44)
[2020-05-06] MEDS: Zinc Sulfate 220 MG CAP PO SCH (08:29)
[2020-05-06] MEDS: Carvedilol 6.25 MG TAB PO SCH ×2 (08:29→08:43)
[2020-05-06] MEDS: NIFEdipine XL 60 MG TAB PO SCH (08:29)
[2020-05-06] MEDS: Atorvastatin Calcium 40 MG TAB PO SCH (08:29)
[2020-05-06] MEDS: Ascorbic Acid 500 mg Chewable Tablet PO SCH ×2 (08:29→08:41)
[2020-05-06] MEDS: Folic Acid 1 MG TAB PO SCH (08:29)
[2020-05-06] MEDS: ALPRAZolam 0.5 MG TAB PO SCH ×2 (08:30→20:42)
[2020-05-06] MEDS: Heparin 5,000 UNITS/ML VIAL SC SCH ×3 (08:32→20:43)
[2020-05-06] MEDS ORDERED: cloNIDine 0.1 MG TAB PO SCH (09:00)
[2020-05-06] MEDS ORDERED: Dexamethasone 4 mg/ml Vial SLOW IVP SCH (09:00)
[2020-05-06 10:08] LABS: Hemoglobin 9.7 g/dL (12.0-16.0); Mean Corpuscular HGB CONC 32.3 g/dL (32.0-36.0); Mean Corpuscular Hemoglobin 27.6 pg (27.0-31.0); Mean Corpuscular Volume 85.4 fL (78.0-98.0); Mean Platelet Volume 8.7 fL (7.4-10.4); Platelet Count 215 thou/uL (130-400); RBC Distribution Width 13.9 % (11.5-14.5); Red Blood Cell (RBC) Count 3.52 mill/uL (4.20-5.40); White Blood Cell (WBC) Count 4.5 thou/uL (4.8-10.8)
[2020-05-06 10:24] LABS: Anion Gap 16 mmol/L (10-20); BUN (Urea Nitrogen) 61 mg/dL (9.8-20.1); BUN/Creatinine Ratio 21.79; Calc. Creatinine Clearance 25 mL/min (70-130); Calcium 7.6 mg/dL (7.8-10.44); Carbon Dioxide 22 mmol/L (23-31); Chloride 104 mmol/L (98-107); Glucose 189 mg/dL (80-115); Phosphorus 3.2 mg/dL (2.3-4.7); Potassium 4.5 mmol/L (3.5-5.1); Sodium 137 mmol/L (136-145)
--- NOTE | 2020-05-06 12:19 | PDOC.HOSPP ---
- Subjective Encounter Date: 05/06/20 Encounter Time: 10:45 Subjective: sob is better, feels weak and dizzy to ambulate no chest pain or palpitations - Objective Vital Signs & Weight: Vital Signs (12 hours) Temp Pulse Resp BP BP Pulse Ox 05/06/20 08:45 48 L 05/06/20 07:40 98.4 F 50 L 16 160/72 H 97 05/06/20 03:39 157/72 H 05/06/20 03:38 179/78 H 05/06/20 03:18 98.2 F 53 L 26 H 189/81 H 97 Weight Admit Weight 186 lb 4.8 oz Weight 186 lb 4.8 oz I&O: 05/05/20 05/06/20 05/07/20 06:59 06:59 06:59 Intake Total 250 Output Total 300 300 Balance 250 -300 -300 Result Diagrams: 05/06/20 09:45 05/06/20 09:45 Hospitalist ROS - Medication Medications: Active Medications Generic Name Dose Route Start Last Admin Trade Name Freq PRN Reason Stop Dose Admin Acetaminophen 650 mg 05/05/20 03:50 05/05/20 04:19 Acetaminophen 325 Mg Tab PO 650 mg Q4H PRN Administration Mild Pain Albuterol Sulfate 2 puff 05/05/20 03:59 05/05/20 07:40 Albuterol 200 Puff (6.7gm Inhaler) INH 2 puff [id number] PRN Administration Wheezing Alprazolam 0.5 mg 05/02/20 21:00 05/06/20 08:30 Alprazolam 0.5 Mg Tab PO 0.5 mg BID ESTER Administration Ascorbic Acid 1,000 mg 05/02/20 09:00 05/06/20 08:41 Ascorbic Acid 500 Mg Chewable Tablet PO Not Given DAILY ESTER Atorvastatin Calcium 40 mg 05/03/20 09:00 05/06/20 08:29 Atorvastatin Calcium 40 Mg Tab PO 20 mg DAILY ESTER Administration Cholecalciferol 400 units 05/02/20 09:00 05/06/20 08:28 Cholecalciferol (Vitamin D3) 400 Units Tab PO 400 units DAILY ESTER Administration Dexamethasone 6 mg 05/06/20 09:00 05/06/20 08:30 Dexamethasone 4 Mg/Ml Vial SLOW IVP 6 mg DAILY ESTER Administration Folic Acid 1 mg 05/03/20 09:00 05/06/20 08:29 Folic Acid 1 Mg Tab PO 1 mg DAILY ESTER Administration Heparin Sodium (Porcine) 5,000 units 05/02/20 09:00 05/06/20 08:32 Heparin 5,000 Units/Ml Vial SC 5,000 units TID ESTER Administration Magnesium Citrate 300 ml 05/02/20 19:40 05/04/20 08:13 Magnesium Citrate 300 Ml Bot PO 300 ml DAILYPRN PRN Administration Constipation Nifedipine 60 mg 05/06/20 09:00 05/06/20 08:29 Nifedipine Xl 60 Mg Tab PO 60 mg DAILY ESTER Administration Tramadol HCl 100 mg 05/03/20 23:21 05/04/20 17:23 Tramadol Hcl 50 Mg Tab PO 100 mg Q6H PRN Administration Pain Tramadol HCl 100 mg 05/04/20 21:00 05/05/20 20:47 Tramadol Hcl 50 Mg Tab PO 100 mg HS ESTER Administration Zolpidem Tartrate 10 mg 05/02/20 19:39 05/05/20 20:53 Zolpidem Tartrate 5 Mg Tab PO 10 mg HSPRN PRN Administration Insomnia - Exam General Appearance: awake alert Eye: PERRL, anicteric sclera ENT: no oropharyngeal lesions, moist mucosa Neck: supple, no JVD Heart: RRR, no murmur Respiratory: no wheezes, no rales Gastrointestinal: soft, non-tender, non-distended, normal bowel sounds Extremities: no cyanosis, no edema Neurological: cranial nerve grossly intact, no focal deficits Psychiatric: normal affect, A&O x 3 Hosp A/P (1) Pneumonia due to COVID-19 virus Code(s): U07.1 - COVID-19; J12.89 - OTHER VIRAL PNEUMONIA Status: Acute (2) Acute kidney injury superimposed on CKD Code(s): N17.9 - ACUTE KIDNEY FAILURE, UNSPECIFIED; N18.9 - CHRONIC KIDNEY DISEASE, UNSPECIFIED Status: Acute (3) Acute respiratory failure with hypoxia Code(s): J96.01 - ACUTE RESPIRATORY FAILURE WITH HYPOXIA Status: Acute (4) HTN (hypertension) Code(s): I10 - ESSENTIAL (PRIMARY) HYPERTENSION Status: Chronic Qualifiers: Hypertension type: essential hypertension Qualified Code(s): I10 - Essential (primary) hypertension (5) Dyslipidemia Code(s): E78.5 - HYPERLIPIDEMIA, UNSPECIFIED Status: Chronic (6) Peripheral neuropathy Code(s): G62.9 - POLYNEUROPATHY, UNSPECIFIED Status: Chronic Qualifiers: Peripheral neuropathy type: polyneuropathy, unspecified Qualified Code(s): G62.9 - Polyneuropathy, unspecified (7) Anemia of renal disease Code(s): D63.1 - ANEMIA IN CHRONIC KIDNEY DISEASE Status: Chronic (8) Metabolic acidosis Code(s): E87.2 - ACIDOSIS Status: Acute - Plan is on 3 lts nc, cxr shows worsening infiltrates, continue dexamethasone on coreg and hydralazine, she also takes ambien chronically for insomnia at 10mg continue d5w without bicarb x 2 lts is at high risk for complications with multiple comorbid conditions dc plan likely in 36-48hrs on home O2 if renal function stabilizes. off clonidine and is on lower dose coreg due to bradycardia with rates dipping into 40's encourage po intake, is not eating much, maybe will change to regular diet to see if she will eat?
[2020-05-06] MEDS: Dextrose 5% in Water 1,000 ML IV SCH ×2 (13:23→20:49)
[2020-05-06] MEDS ORDERED: Mag-Al Plus 1200 MG/1200 MG/120 MG/30 ML UDCUP PO PRN (16:17)
[2020-05-06] MEDS: Ondansetron PF 4 MG/2 ML Vial IVP PRN (16:17)
[2020-05-06] MEDS: Carvedilol 3.125 MG TAB PO SCH (18:00)
[2020-05-06] MEDS: traMADol HCl 50 MG TAB PO SCH (20:45)
[2020-05-06] MEDS: Zolpidem Tartrate 5 MG TAB PO PRN (20:46)
[2020-05-07 05:59] LABS: #Lymphocytes 0.9 thou/uL (1.20-3.40); #Monocytes 0.5 thou/uL (0.11-0.59); #Neutrophils 4.7 thou/uL (1.40-6.50); %Basophils 0.3 % (0.0-1.0); %Eosinophils 0.1 % (0.0-10.0); %Lymphocytes 14.2 % (21.0-51.0); %Monocytes 7.8 % (0.0-10.0); %Neutrophils 77.6 % (42.0-75.0); Mean Corpuscular HGB CONC 32.1 g/dL (32.0-36.0); Mean Corpuscular Hemoglobin 27.2 pg (27.0-31.0); Mean Corpuscular Volume 84.7 fL (78.0-98.0); Mean Platelet Volume 8.7 fL (7.4-10.4); Platelet Count 292 thou/uL (130-400); RBC Distribution Width 13.7 % (11.5-14.5); Red Blood Cell (RBC) Count 3.69 mill/uL (4.20-5.40); White Blood Cell (WBC) Count 6.1 thou/uL (4.8-10.8)
[2020-05-07 06:41] LABS: Albumin 3.2 g/dL (3.4-4.8); Anion Gap 14 mmol/L (10-20); BUN (Urea Nitrogen) 56 mg/dL (9.8-20.1); BUN/Creatinine Ratio 20.29; Calc. Creatinine Clearance 26 mL/min (70-130); Calcium 7.5 mg/dL (7.8-10.44); Carbon Dioxide 20 mmol/L (23-31); Chloride 100 mmol/L (98-107); Glucose 207 mg/dL (80-115); Phosphorus 2.5 mg/dL (2.3-4.7); Potassium 4.4 mmol/L (3.5-5.1); Sodium 130 mmol/L (136-145)
[2020-05-07] MEDS: Dexamethasone 4 MG TAB PO SCH (08:03)
[2020-05-07] MEDS: hydrALAZINE 25 MG TAB PO SCH ×3 (08:04→22:55)
[2020-05-07] MEDS: ALPRAZolam 0.5 MG TAB PO SCH ×3 (08:06→21:25)
[2020-05-07] MEDS: Atorvastatin Calcium 40 MG TAB PO SCH (08:06)
[2020-05-07] MEDS: Folic Acid 1 MG TAB PO SCH (08:07)
[2020-05-07] MEDS: Cholecalciferol (Vitamin D3) 400 UNITS TAB PO SCH (08:08)
[2020-05-07] MEDS: NIFEdipine XL 60 MG TAB PO SCH (08:08)
[2020-05-07] MEDS: Carvedilol 3.125 MG TAB PO SCH ×2 (08:37→16:04)
[2020-05-07] MEDS: Ascorbic Acid 500 mg Chewable Tablet PO SCH (08:37)
[2020-05-07] MEDS: Heparin 5,000 UNITS/ML VIAL SC SCH ×3 (08:38→21:25)
--- NOTE | 2020-05-07 13:34 | PDOC.HOSPP ---
- Subjective Encounter Date: 05/07/20 Encounter Time: 11:00 Subjective: no sob, feels weak to ambulate no chest pain or palp - Objective Vital Signs & Weight: Vital Signs (12 hours) Temp Pulse Resp BP BP Pulse Ox 05/07/20 12:00 99.0 F 59 L 18 166/74 H 92 L 05/07/20 08:38 98.8 F 58 L 18 154/74 H 93 L 05/07/20 08:08 51 L 05/07/20 08:04 51 L 05/07/20 04:15 98.4 F 51 L 21 H 141/63 H 91 L Weight Admit Weight 186 lb 4.8 oz Weight 186 lb 4.8 oz I&O: 05/06/20 05/07/20 05/08/20 06:59 06:59 06:59 Intake Total 1450 Output Total 300 1400 Balance -300 50 Result Diagrams: 05/07/20 05:35 05/07/20 05:34 Hospitalist ROS - Medication Medications: Active Medications Generic Name Dose Route Start Last Admin Trade Name Freq PRN Reason Stop Dose Admin Acetaminophen 650 mg 05/05/20 03:50 05/05/20 04:19 Acetaminophen 325 Mg Tab PO 650 mg Q4H PRN Administration Mild Pain Albuterol Sulfate 2 puff 05/05/20 03:59 05/05/20 07:40 Albuterol 200 Puff (6.7gm Inhaler) INH 2 puff [id number] PRN Administration Wheezing Alprazolam 0.5 mg 05/02/20 21:00 05/07/20 08:37 Alprazolam 0.5 Mg Tab PO Not Given BID ESTER Ascorbic Acid 1,000 mg 05/02/20 09:00 05/07/20 08:37 Ascorbic Acid 500 Mg Chewable Tablet PO Not Given DAILY ESTER Atorvastatin Calcium 40 mg 05/03/20 09:00 05/07/20 08:06 Atorvastatin Calcium 40 Mg Tab PO 20 mg DAILY ESTER Administration Carvedilol 3.125 mg 05/06/20 17:00 05/07/20 08:37 Carvedilol 3.125 Mg Tab PO Not Given BID-[facility] Cholecalciferol 400 units 05/02/20 09:00 05/07/20 08:08 Cholecalciferol (Vitamin D3) 400 Units Tab PO 400 units DAILY ESTER Administration Dexamethasone 6 mg 05/07/20 08:00 05/07/20 08:03 Dexamethasone 4 Mg Tab PO 6 mg QAM-WM ESTER Administration Folic Acid 1 mg 05/03/20 09:00 05/07/20 08:07 Folic Acid 1 Mg Tab PO 1 mg DAILY ESTER Administration Heparin Sodium (Porcine) 5,000 units 05/02/20 09:00 05/07/20 08:38 Heparin 5,000 Units/Ml Vial SC Not Given TID ESTER Hydralazine HCl 100 mg 05/06/20 15:00 05/07/20 08:04 Hydralazine 25 Mg Tab PO 75 mg TID ESTER Administration Magnesium Citrate 300 ml 05/02/20 19:40 05/04/20 08:13 Magnesium Citrate 300 Ml Bot PO 300 ml DAILYPRN PRN Administration Constipation Nifedipine 60 mg 05/06/20 09:00 05/07/20 08:08 Nifedipine Xl 60 Mg Tab PO 60 mg DAILY ESTER Administration Ondansetron HCl 4 mg 05/03/20 17:50 05/06/20 16:17 Ondansetron Pf 4 Mg/2 Ml Vial IVP 4 mg Q6H PRN Administration Nausea/Vomiting Pantoprazole Sodium 40 mg 05/07/20 09:00 05/07/20 08:06 Pantoprazole 40 Mg Tab PO 40 mg DAILY ESTER Administration Tramadol HCl 100 mg 05/03/20 23:21 05/04/20 17:23 Tramadol Hcl 50 Mg Tab PO 100 mg Q6H PRN Administration Pain Tramadol HCl 100 mg 05/04/20 21:00 05/06/20 20:45 Tramadol Hcl 50 Mg Tab PO 100 mg HS ESTER Administration Zolpidem Tartrate 10 mg 05/02/20 19:39 05/06/20 20:46 Zolpidem Tartrate 5 Mg Tab PO 10 mg HSPRN PRN Administration Insomnia - Exam General Appearance: awake alert Eye: PERRL, anicteric sclera ENT: no oropharyngeal lesions, moist mucosa Neck: supple, no JVD Heart: RRR, no murmur Respiratory: no wheezes, no rales Gastrointestinal: soft, non-tender, non-distended, normal bowel sounds Extremities: no cyanosis, no edema Neurological: cranial nerve grossly intact, no focal deficits Psychiatric: A&O x 3 Hosp A/P (1) Pneumonia due to COVID-19 virus Code(s): U07.1 - COVID-19; J12.89 - OTHER VIRAL PNEUMONIA Status: Acute (2) Acute kidney injury superimposed on CKD Code(s): N17.9 - ACUTE KIDNEY FAILURE, UNSPECIFIED; N18.9 - CHRONIC KIDNEY DISEA SE, UNSPECIFIED Status: Acute (3) Acute respiratory failure with hypoxia Code(s): J96.01 - ACUTE RESPIRATORY FAILURE WITH HYPOXIA Status: Acute (4) HTN (hypertension) Code(s): I10 - ESSENTIAL (PRIMARY) HYPERTENSION Status: Chronic Qualifiers: Hypertension type: essential hypertension Qualified Code(s): I10 - Essential (primary) hypertension (5) Dyslipidemia Code(s): E78.5 - HYPERLIPIDEMIA, UNSPECIFIED Status: Chronic (6) Peripheral neuropathy Code(s): G62.9 - POLYNEUROPATHY, UNSPECIFIED Status: Chronic Qualifiers: Peripheral neuropathy type: polyneuropathy, unspecified Qualified Code(s): G62.9 - Polyneuropathy, unspecified (7) Anemia of renal disease Code(s): D63.1 - ANEMIA IN CHRONIC KIDNEY DISEASE Status: Chronic (8) Metabolic acidosis Code(s): E87.2 - ACIDOSIS Status: Resolved - Plan is on 3 lts nc, cxr shows worsening infiltrates, continue dexamethasone on coreg and hydralazine, she also takes ambien chronically for insomnia at 10mg continue d5w without bicarb x 2 lts, Creatinine around 2.5 at baseline is at high risk for complications with multiple comorbid conditions will need rehab/swing bed for dc plan but pt prefers to go home? off clonidine and is on lower dose coreg due to bradycardia with rates dipping into 40's which has resolved now. encourage po intake, is not eating much, but likes ensure cans, will change to regular diet to see if she will eat
[2020-05-07] MEDS ORDERED: hydrALAZINE 25 MG TAB PO SCH (21:15)
--- NOTE | 2020-05-07 21:16 | PDOC.EVN ---
Event Note - Event Note Event Note: Notified by RN, patient has hydralazine 100 mg PO TID ordered. She has been refusing to take it as she takes 75 mg PO TID at home. This is what she has been receiving while here therefore dose adjusted as per patient request (her BP has been in the 140s to 150s). Patient will discuss with day team if further adjustments needed to her usual home meds.
[2020-05-07] MEDS: traMADol HCl 50 MG TAB PO SCH (21:25)
[2020-05-08] MEDS ORDERED: Ondansetron ODT 4 MG TAB PO PRN (01:15)
[2020-05-08 06:13] LABS: Albumin 3.4 g/dL (3.4-4.8); Anion Gap 18 mmol/L (10-20); BUN (Urea Nitrogen) 71 mg/dL (9.8-20.1); BUN/Creatinine Ratio 19.29; Calc. Creatinine Clearance 19 mL/min (70-130); Calcium 7.8 mg/dL (7.8-10.44); Carbon Dioxide 20 mmol/L (23-31); Chloride 100 mmol/L (98-107); Glucose 209 mg/dL (80-115); Phosphorus 2.8 mg/dL (2.3-4.7); Potassium 4.7 mmol/L (3.5-5.1); Sodium 133 mmol/L (136-145)
[2020-05-08] MEDS: Dexamethasone 4 MG TAB PO SCH (10:39)
[2020-05-08] MEDS: hydrALAZINE 25 MG TAB PO SCH ×3 (10:40→21:20)
[2020-05-08] MEDS: Carvedilol 3.125 MG TAB PO SCH ×2 (10:41→16:25)
[2020-05-08] MEDS: NIFEdipine XL 60 MG TAB PO SCH (10:41)
[2020-05-08] MEDS: ALPRAZolam 0.5 MG TAB PO SCH ×2 (10:41→21:20)
[2020-05-08] MEDS: Heparin 5,000 UNITS/ML VIAL SC SCH ×3 (10:41→21:20)
[2020-05-08] MEDS: Folic Acid 1 MG TAB PO SCH (10:43)
[2020-05-08] MEDS: Cholecalciferol (Vitamin D3) 400 UNITS TAB PO SCH (10:43)
[2020-05-08] MEDS: Ascorbic Acid 500 mg Chewable Tablet PO SCH (10:43)
[2020-05-08] MEDS: Atorvastatin Calcium 40 MG TAB PO SCH (10:56)
[2020-05-08] MEDS ORDERED: Bisacodyl 10 MG SUPP PR PRN (12:46)
[2020-05-08] MEDS: Sodium Chloride 0.45% 1,000 ML IV SCH ×2 (14:01→17:43)
--- NOTE | 2020-05-08 14:11 | PQF ---
CLINICAL DOCUMENTATION CLARIFICATION FORM: Dear Dr. Adrian Date: 05/08/2020 Please exercise your independent, professional judgment in responding to the clarification form. Clinical indicators are provided on the bottom of this form for your review. Please check appropriate box(s): [ x ] Sepsis due to COVID-19 virus [ ] Localized Infection without Sepsis [ ] Other diagnosis [ ] Unable to determine In addition, please specify: Present on Admission (POA): [ x ] Yes [ ] No [ ] Unable to determine For continuity of documentation, please document condition throughout progress notes and discharge summary. Thank You. CLINICAL INDICATORS - SIGNS / SYMPTOMS / LABS / RESULTS AND LOCATION IN EMR *ED 05/01: Temp (max): 101.7 (oral) *PN 05/02 ([facility]): Leukopenia WBC 4, likely from COVID *LAB ([facility]): WBC Neutrophils % Lactic Acid CRP 05/01 4.1 71.9 0.9 05/02 4.0 80.5 1.74 05/03 8.2 05/04 4.2 05/05 0.5 05/06 4.5 05/07 6.1 77.6 *PN 05/03 ([facility]): She is starting to develop a dry cough. She also spiked a fever to 102 today and feels warm. *PN 05/04 ([facility]): She did spike a fever to 103 overnight. *[facility] * Acute kidney injury superimposed on CKD * Acute respiratory failure with hypoxia * Metabolic acidosis * Is on 3 lts nc, cxr shows worsening infiltrates, continue dexamethasone, dc antibiotics RISK FACTORS / RESULTS AND LOCATION IN EMR *H&P 05/02 ([facility]): * 70-year-old * History of type 2 diabetes . Hypertension * Pneumonia due to Covid TREATMENTS / RESULTS AND LOCATION IN EMR *ED 05/01: Azithromycin, Ceftriaxone, Decadron IV, NS 1l IV *H&P 05/02 ([facility]): We will continue on azithromycin and ceftriaxone for now *LAB ([facility]): CBC daily 05/01-05/04; 05/06,05/07; Lactic Acid 05/01, 05/05; CRP 05/02 *Microbiology 05/01 ([facility]): Blood Cultures (x2) *PN 05/05 ([facility]adeeshan): Is on 3 lts nc Continue dexamethasone Thank you, Traci CDS/Pecan Huller Signature: Traci Galaviz RN, CDS Phone #: [phone] [email or web address] This is a permanent part of the Medical Record [facility]
--- NOTE | 2020-05-08 14:49 | PDOC.HOSPP ---
- Subjective Encounter Date: 05/08/20 Encounter Time: 10:30 Subjective: no sob or chest pain is on nasal canula - Objective Vital Signs & Weight: Vital Signs (12 hours) Temp Pulse Resp BP BP Pulse Ox 05/08/20 14:30 98.8 F 67 16 147/67 H 97 05/08/20 10:41 72 05/08/20 10:40 72 05/08/20 10:28 98.6 F 72 16 167/73 H 96 05/08/20 03:27 98.7 F 66 20 140/65 92 L Weight Admit Weight 186 lb 4.8 oz Weight 185 lb 9.6 oz I&O: 05/07/20 05/08/20 05/09/20 06:59 06:59 06:59 Intake Total 1450 840 Output Total 1400 450 Balance 50 390 Result Diagrams: 05/07/20 05:35 05/08/20 04:58 Hospitalist ROS - Medication Medications: Active Medications Generic Name Dose Route Start Last Admin Trade Name Freq PRN Reason Stop Dose Admin Acetaminophen 650 mg 05/05/20 03:50 05/05/20 04:19 Acetaminophen 325 Mg Tab PO 650 mg Q4H PRN Administration Mild Pain Albuterol Sulfate 2 puff 05/05/20 03:59 05/05/20 07:40 Albuterol 200 Puff (6.7gm Inhaler) INH 2 puff [id number] PRN Administration Wheezing Alprazolam 0.5 mg 05/02/20 21:00 05/08/20 10:41 Alprazolam 0.5 Mg Tab PO 0.5 mg BID ESTER Administration Ascorbic Acid 1,000 mg 05/02/20 09:00 05/08/20 10:43 Ascorbic Acid 500 Mg Chewable Tablet PO Not Given DAILY ESTER Carvedilol 3.125 mg 05/06/20 17:00 05/08/20 10:41 Carvedilol 3.125 Mg Tab PO 3.125 mg BID-WM ESTER Administration Cholecalciferol 400 units 05/02/20 09:00 05/08/20 10:43 Cholecalciferol (Vitamin D3) 400 Units Tab PO Not Given DAILY ESTER Dexamethasone 6 mg 05/07/20 08:00 05/08/20 10:39 Dexamethasone 4 Mg Tab PO 6 mg QAM-WM ESTER Administration Folic Acid 1 mg 05/03/20 09:00 05/08/20 10:43 Folic Acid 1 Mg Tab PO Not Given DAILY ESTER Heparin Sodium (Porcine) 5,000 units 05/02/20 09:00 05/08/20 10:41 Heparin 5,000 Units/Ml Vial SC 5,000 units TID ESTER Administration Hydralazine HCl 75 mg 05/08/20 09:00 05/08/20 10:40 Hydralazine 25 Mg Tab PO 75 mg TID ESTER Administration Sodium Chloride 1,000 mls @ 100 mls/hr 05/08/20 07:45 05/08/20 14:01 1/2 Normal Saline IV 1,000 mls .Q10H ESTER Administration Magnesium Citrate 300 ml 05/02/20 19:40 05/04/20 08:13 Magnesium Citrate 300 Ml Bot PO 300 ml DAILYPRN PRN Administration Constipation Nifedipine 60 mg 05/06/20 09:00 05/08/20 10:41 Nifedipine Xl 60 Mg Tab PO 60 mg DAILY ESTER Administration Ondansetron HCl 4 mg 05/03/20 17:50 05/06/20 16:17 Ondansetron Pf 4 Mg/2 Ml Vial IVP 4 mg Q6H PRN Administration Nausea/Vomiting Ondansetron HCl 4 mg 05/08/20 01:15 05/08/20 14:20 Ondansetron Odt 4 Mg Tab PO 4 mg Q6H PRN Administration Nausea/Vomiting Pantoprazole Sodium 40 mg 05/07/20 09:00 05/08/20 10:40 Pantoprazole 40 Mg Tab PO 40 mg DAILY ESTER Administration Tramadol HCl 100 mg 05/03/20 23:21 05/04/20 17:23 Tramadol Hcl 50 Mg Tab PO 100 mg Q6H PRN Administration Pain Tramadol HCl 100 mg 05/04/20 21:00 05/07/20 21:25 Tramadol Hcl 50 Mg Tab PO 100 mg HS ESTER Administration Zolpidem Tartrate 10 mg 05/02/20 19:39 05/06/20 20:46 Zolpidem Tartrate 5 Mg Tab PO 10 mg HSPRN PRN Administration Insomnia - Exam General Appearance: awake alert Eye: PERRL, anicteric sclera ENT: no oropharyngeal lesions, dry oral mucosa Neck: supple, no JVD Heart: RRR, no murmur Respiratory: no wheezes, rales, rhonchi Gastrointestinal: soft, non-tender, non-distended, normal bowel sounds Extremities: no cyanosis, no edema Neurological: cranial nerve grossly intact, no focal deficits Psychiatric: A&O x 3 Hosp A/P (1) Pneumonia due to COVID-19 virus Code(s): U07.1 - COVID-19; J12.89 - OTHER VIRAL PNEUMONIA Status: Acute (2) Acute kidney injury superimposed on CKD Code(s): N17.9 - ACUTE KIDNEY FAILURE, UNSPECIFIED; N18.9 - CHRONIC KIDNEY DISEASE, UNSPECIFIED Status: Acute (3) Acute respiratory failure with hypoxia Code(s): J96.01 - ACUTE RESPIRATORY FAILURE WITH HYPOXIA Status: Acute (4) HTN (hypertension) Code(s): I10 - ESSENTIAL (PRIMARY) HYPERTENSION Status: Chronic Qualifiers: Hypertension type: essential hypertension Qualified Code(s): I10 - Essential (primary) hypertension (5) Dyslipidemia Code(s): E78.5 - HYPERLIPIDEMIA, UNSPECIFIED Status: Chronic (6) Peripheral neuropathy Code(s): G62.9 - POLYNEUROPATHY, UNSPECIFIED Status: Chronic Qualifiers: Peripheral neuropathy type: polyneuropathy, unspecified Qualified Code(s): G62.9 - Polyneuropathy, unspecified (7) Anemia of renal disease Code(s): D63.1 - ANEMIA IN CHRONIC KIDNEY DISEASE Status: Chronic (8) Metabolic acidosis Code(s): E87.2 - ACIDOSIS Status: Resolved - Plan is on 3 lts nc, cxr shows worsening infiltrates, continue dexamethasone on coreg and hydralazine, she also takes ambien chronically for insomnia at 10mg IV fluids, Creatinine around 2.5 at baseline is at high risk for complications with multiple comorbid conditions will need rehab/swing bed for dc plan, agrees to go to [place] swing bed. off clonidine and is on lower dose coreg due to bradycardia with rates dipping into 40's which has resolved now. encourage po intake, is not eating much despite changing to regular diet, drank only half a can of ensure whole day yesterday
[2020-05-08] MEDS: traMADol HCl 50 MG TAB PO PRN (16:23)
[2020-05-08] MEDS: traMADol HCl 50 MG TAB PO SCH (21:20)
[2020-05-08] MEDS: Senokot 8.6 MG TAB PO SCH (21:20)
[2020-05-09] MEDS: Sodium Chloride 0.45% 1,000 ML IV SCH ×3 (00:25→20:51)
[2020-05-09] MEDS: ALPRAZolam 0.5 MG TAB PO SCH ×2 (09:32→20:35)
[2020-05-09] MEDS: Carvedilol 3.125 MG TAB PO SCH ×2 (09:32→15:39)
[2020-05-09] MEDS: Dexamethasone 4 MG TAB PO SCH (09:32)
[2020-05-09] MEDS: Folic Acid 1 MG TAB PO SCH (09:33)
[2020-05-09] MEDS: Atorvastatin Calcium 20 MG TAB PO SCH (09:33)
[2020-05-09] MEDS: Senokot 8.6 MG TAB PO SCH ×2 (09:33→20:51)
[2020-05-09] MEDS: Cholecalciferol (Vitamin D3) 400 UNITS TAB PO SCH (09:33)
[2020-05-09] MEDS: hydrALAZINE 25 MG TAB PO SCH ×4 (09:33→20:50)
[2020-05-09] MEDS: NIFEdipine XL 60 MG TAB PO SCH (09:33)
[2020-05-09] MEDS: Ascorbic Acid 500 mg Chewable Tablet PO SCH (09:33)
[2020-05-09] MEDS: Heparin 5,000 UNITS/ML VIAL SC SCH ×3 (09:33→20:51)
[2020-05-09 10:27] LABS: Albumin 3.4 g/dL (3.4-4.8); Anion Gap 19 mmol/L (10-20); BUN (Urea Nitrogen) 80 mg/dL (9.8-20.1); BUN/Creatinine Ratio 20.41; Calc. Creatinine Clearance 18 mL/min (70-130); Calcium 7.7 mg/dL (7.8-10.44); Carbon Dioxide 19 mmol/L (23-31); Chloride 99 mmol/L (98-107); Glucose 186 mg/dL (80-115); Phosphorus 3.4 mg/dL (2.3-4.7); Potassium 4.5 mmol/L (3.5-5.1); Sodium 132 mmol/L (136-145)
--- NOTE | 2020-05-09 12:04 | CON ---
DATE OF CONSULTATION: REASON FOR CONSULTATION: Elevated creatinine. HISTORY OF PRESENT ILLNESS: This is a pleasant lady with a baseline creatinine of 2.4 on admission, which has increased to 3.9 progressively since admission. The patient remains hypertensive. The patient is being treated for COVID-19. The patient denies any nausea, vomiting, or chest pain. PAST MEDICAL HISTORY: Significant for CKD, hypertension, hyperlipidemia, tubal ligation. SOCIAL HISTORY: No alcohol or drug use. FAMILY HISTORY: Negative for ESRD. ALLERGIES: REVIEWED. HOME MEDICATION LIST: Reviewed. HOSPITAL MEDICATION LIST: Reviewed. REVIEW OF SYSTEMS: 10-point review of systems was performed, was negative except for positives noted above. HEENT: Eyes intact, no diplopia. Ears: No hearing loss or earache. Nose: No discharge or bleeding. Chest: No cough or phlegm. Abdomen: No nausea or vomiting. Genitourinary: No hematuria. No Do catheter. Musculoskeletal: No low back pain. No joint swelling or pain. Neurological: No syncope. No seizures. Skin: No complaints of rash or itching. Psychiatric: No depression. Constitutional: No weight loss or loss of appetite. PHYSICAL EXAMINATION: GENERAL: The patient is awake and alert. VITAL SIGNS: Pulse 75, breathing 16, blood pressure 164/72. HEENT: Head normocephalic and atraumatic. Eyes intact, no ulcers. Nose intact, no ulcers. Ears intact, no ulcers. Neck: Supple. No JVD. Chest: Symmetrical and clear. Cardiovascular: Shows S1 and S2, no rub, no murmur. Gastrointestinal: Abdomen is soft, bowel sounds positive. Extremities: Show no edema or ulcers. Skin: Shows no rash or petechiae. Musculoskeletal: Shows no joint swelling or stiffness. Genitourinary: Shows no Do or CVA tenderness. Neurologic: Motor intact. Cranial nerves intact. LABORATORY DATA: Labs show creatinine 3.9. ASSESSMENT: 1. Acute kidney injury with chronic kidney disease stage 5, most likely because of acute tubular necrosis and possible COVID-19 renal complications, and no urgent indication for dialysis. 2. Hypertension stable. 3. Metabolic acidosis, stable. 4. Medication based on GFR appropriate. No indication for dialysis. We will follow along closely. Job ID: [id number]
--- NOTE | 2020-05-09 12:51 | PDOC.HOSPP ---
- Subjective Encounter Date: 05/09/20 Encounter Time: 09:30 Subjective: feels weak, has loss of appetite, no sob says was trying to take shower in am and took her nasal canula off now ensure makes her nauseous which she stopped completely - Objective Vital Signs & Weight: Vital Signs (12 hours) Temp Pulse Resp BP BP Pulse Ox 05/09/20 11:06 76 05/09/20 10:59 98.6 F 76 24 H 189/81 H 94 L 05/09/20 09:33 75 05/09/20 09:05 98.6 F 75 20 164/72 H 92 L 05/09/20 03:20 98.5 F 76 20 175/73 H 93 L Weight Admit Weight 186 lb 4.8 oz Weight 185 lb 9.6 oz I&O: 05/08/20 05/09/20 05/10/20 06:59 06:59 06:59 Intake Total 840 200 Output Total 450 Balance 390 200 Result Diagrams: 05/07/20 05:35 05/09/20 09:22 Hospitalist ROS - Medication Medications: Active Medications Generic Name Dose Route Start Last Admin Trade Name Freq PRN Reason Stop Dose Admin Acetaminophen 650 mg 05/05/20 03:50 05/05/20 04:19 Acetaminophen 325 Mg Tab PO 650 mg Q4H PRN Administration Mild Pain Albuterol Sulfate 2 puff 05/05/20 03:59 05/05/20 07:40 Albuterol 200 Puff (6.7gm Inhaler) INH 2 puff [id number] PRN Administration Wheezing Alprazolam 0.5 mg 05/02/20 21:00 05/09/20 09:32 Alprazolam 0.5 Mg Tab PO Not Given BID ESTER Ascorbic Acid 1,000 mg 05/02/20 09:00 05/09/20 09:33 Ascorbic Acid 500 Mg Chewable Tablet PO Not Given DAILY [facility] Atorvastatin Calcium 20 mg 05/09/20 09:00 05/09/20 09:33 Atorvastatin Calcium 20 Mg Tab PO Not Given DAILY ESTER Carvedilol 3.125 mg 05/06/20 17:00 05/09/20 09:32 Carvedilol 3.125 Mg Tab PO Not Given BID-[facility] Cholecalciferol 400 units 05/02/20 09:00 05/09/20 09:33 Cholecalciferol (Vitamin D3) 400 Units Tab PO Not Given DAILY [facility] Dexamethasone 6 mg 05/07/20 08:00 05/09/20 09:32 Dexamethasone 4 Mg Tab PO Not Given QA-WM [facility] Folic Acid 1 mg 05/03/20 09:00 05/09/20 09:33 Folic Acid 1 Mg Tab PO Not Given DAILY ESTER Heparin Sodium (Porcine) 5,000 units 05/02/20 09:00 05/09/20 09:33 Heparin 5,000 Units/Ml Vial SC Not Given TID ESTER Hydralazine HCl 75 mg 05/08/20 09:00 05/09/20 11:06 Hydralazine 25 Mg Tab PO 75 mg TID ESTER Administration Sodium Chloride 1,000 mls @ 100 mls/hr 05/08/20 07:45 05/09/20 09:34 1/2 Normal Saline IV 1,000 mls .Q10H ESTER Administration Magnesium Citrate 300 ml 05/02/20 19:40 05/04/20 08:13 Magnesium Citrate 300 Ml Bot PO 300 ml DAILYPRN PRN Administration Constipation Nifedipine 60 mg 05/06/20 09:00 05/09/20 09:33 Nifedipine Xl 60 Mg Tab PO Not Given DAILY [facility] Ondansetron HCl 4 mg 05/03/20 17:50 05/06/20 16:17 Ondansetron Pf 4 Mg/2 Ml Vial IVP 4 mg Q6H PRN Administration Nausea/Vomiting Ondansetron HCl 4 mg 05/08/20 01:15 05/08/20 14:20 Ondansetron Odt 4 Mg Tab PO 4 mg Q6H PRN Administration Nausea/Vomiting Pantoprazole Sodium 40 mg 05/07/20 09:00 05/09/20 09:33 Pantoprazole 40 Mg Tab PO Not Given DAILY [facility] Senna 2 tab 05/08/20 21:00 05/09/20 09:33 Senokot 8.6 Mg Tab PO Not Given BID [facility] Tramadol HCl 100 mg 05/03/20 23:21 05/08/20 16:23 Tramadol Hcl 50 Mg Tab PO 100 mg Q6H PRN Administration Pain Tramadol HCl 100 mg 05/04/20 21:00 05/08/20 21:20 Tramadol Hcl 50 Mg Tab PO 100 mg HS ESTER Administration Zolpidem Tartrate 10 mg 05/02/20 19:39 05/06/20 20:46 Zolpidem Tartrate 5 Mg Tab PO 10 mg HSPRN PRN Administration Insomnia - Exam General Appearance: awake alert Eye: PERRL, anicteric sclera ENT: no oropharyngeal lesions, dry oral mucosa Neck: supple, no JVD Heart: RRR, no murmur Respiratory: no wheezes, rales, rhonchi Gastrointestinal: soft, non-tender, non-distended, normal bowel sounds Extremities: no cyanosis, no edema Neurological: cranial nerve grossly intact, no focal deficits Hosp A/P (1) Pneumonia due to COVID-19 virus Code(s): U07.1 - COVID-19; J12.89 - OTHER VIRAL PNEUMONIA Status: Acute (2) Acute kidney injury superimposed on CKD Code(s): N17.9 - ACUTE KIDNEY FAILURE, UNSPECIFIED; N18.9 - CHRONIC KIDNEY DISEASE, UNSPECIFIED Status: Acute (3) Acute respiratory failure with hypoxia Code(s): J96.01 - ACUTE RESPIRATORY FAILURE WITH HYPOXIA Status: Acute (4) HTN (hypertension) Code(s): I10 - ESSENTIAL (PRIMARY) HYPERTENSION Status: Chronic Qualifiers: Hypertension type: essential hypertension Qualified Code(s): I10 - Essential (primary) hypertension (5) Dyslipidemia Code(s): E78.5 - HYPERLIPIDEMIA, UNSPECIFIED Status: Chronic (6) Peripheral neuropathy Code(s): G62.9 - POLYNEUROPATHY, UNSPECIFIED Status: Chronic Qualifiers: Peripheral neuropathy type: polyneuropathy, unspecified Qualified Code(s): G62.9 - Polyneuropathy, unspecified (7) Anemia of renal disease Code(s): D63.1 - ANEMIA IN CHRONIC KIDNEY DISEASE Status: Chronic (8) Metabolic acidosis Code(s): E87.2 - ACIDOSIS Status: Resolved - Plan is on 5 lts nc, continue dexamethasone on coreg and hydralazine, she also takes ambien chronically for insomnia at 10mg IV fluids, progressive worsening of renal function due to poor oral intake and likely contribution from covid, Creatinine around 2.5 at baseline is at high risk for complications with multiple comorbid conditions will need rehab/swing bed for dc plan, agrees to go to [place] [facility]. off clonidine and is on lower dose coreg due to bradycardia with rates dipping into 40's which has resolved now. encourage po intake, is not eating much despite changing to regular diet
--- NOTE | 2020-05-09 13:35 | RAD ---
EXAM: CHEST ONE VIEW HISTORY: Follow-up Covid pneumonia. High oxygen requirement. COMPARISON: 05/05/2020 FINDINGS: There has been interval increase in patchy airspace opacities seen throughout the lungs bilaterally s uggesting worsening Covid pneumonia. No pleural effusion is evident. Cardiac silhouette is stable in size. No other interval change. IMPRESSION: Worsening Covid pneumonia.
[2020-05-09] MEDS: traMADol HCl 50 MG TAB PO PRN (13:37)
[2020-05-09] MEDS: cefTRIAXone\\ROCEPHIN 1 GM in Sodium Chloride 0.9% 100 ML IVPB SCH (15:30)
[2020-05-09] MEDS: Dexamethasone 4 mg/ml Vial SLOW IVP SCH (20:48)
[2020-05-09] MEDS: traMADol HCl 50 MG TAB PO SCH (20:49)
[2020-05-09] MEDS: Famotidine/PF 20 mg/2ml Vial SLOW IVP SCH (20:49)
[2020-05-09] MEDS: Ondansetron PF 4 MG/2 ML Vial IVP PRN (20:49)
[2020-05-09] MEDS: Albuterol 200 PUFF (6.7GM INHALER) INH PRN (20:52)
[2020-05-09] MEDS: Mometasone 200 MCG/Formoterol 5 MCG 120 PUFF INHALER INH SCH (21:45)
[2020-05-10 05:10] LABS: #Basophils 0.2 thou/uL (0.0-0.2); #Lymphocytes 1.1 thou/uL (1.20-3.40); #Monocytes 0.4 thou/uL (0.11-0.59); #Neutrophils 14.2 thou/uL (1.40-6.50); %Basophils 0.9 % (0.0-1.0); %Eosinophils 0.1 % (0.0-10.0); %Lymphocytes 6.7 % (21.0-51.0); %Monocytes 2.5 % (0.0-10.0); %Neutrophils 89.7 % (42.0-75.0); Hemoglobin 9.7 g/dL (12.0-16.0); Mean Corpuscular HGB CONC 32.1 g/dL (32.0-36.0); Mean Corpuscular Hemoglobin 27.3 pg (27.0-31.0); Mean Corpuscular Volume 84.9 fL (78.0-98.0); Mean Platelet Volume 7.8 fL (7.4-10.4); Platelet Count 400 thou/uL (130-400); RBC Distribution Width 14.1 % (11.5-14.5); Red Blood Cell (RBC) Count 3.55 mill/uL (4.20-5.40); White Blood Cell (WBC) Count 15.9 thou/uL (4.8-10.8)
[2020-05-10] MEDS: Mometasone 200 MCG/Formoterol 5 MCG 120 PUFF INHALER INH SCH ×2 (05:26→18:12)
--- NOTE | 2020-05-10 06:25 | CON ---
DATE OF CONSULTATION: 05/09/2020 HISTORY OF PRESENT ILLNESS: A 70-year-old female who has been in the hospital since 05/01/2020. Today is 05/09/2020. We have been consulted regarding worsening pulmonary status. The patient apparently has been noncompliant with her medication including blood pressure medicine. She then developed worsening symptoms today. It is unclear from her notes what medicine she received if any at all during the last 10 days or so in the hospital. She presented to the ER on 05/01 with worsening shortness of breath of 3 weeks' duration. Admission temperature was 101.7, admission pulse was 60, admission saturation 100% on room air, and respirations 16. Nonsmoker. Coughing up some relatively clear sputum. PAST MEDICAL HISTORY: 1. Diabetes. 2. Hyperlipidemia. 3. High cholesterol. 4. Hypertension. 5. Neuropathy. 6. Chronic renal failure. 7. Congestive heart failure. PREVIOUS SURGERY: 1. Cataract surgery. 2. Tubal ligation. SOCIAL HISTORY: No drug use. No alcohol use. HOME MEDICATIONS: 1. Xanax twice a day 0.5. 2. Norvasc 10. 3. Lipitor 0.5. 4. Coreg 6.25. 5. Lasix 80 b.i.d. 6. Ambien 10. 7. Catapres 0.2 b.i.d. 8. Hydralazine 75. 9. Tramadol p.r.n. ALLERGIES: CLINDAMYCIN AND CRESTOR. REVIEW OF SYSTEMS: Ten-point negative. PHYSICAL EXAMINATION: GENERAL: She is on 6 L saturation of 94%, respiratory rate 24, temperature 98, pulse 76, blood pressure 189/81. CHEST: Rhonchi and crackles. CARDIAC: Normal S1 and S2. No gallop. ABDOMEN: No masses. LABORATORY DATA: Shows worsening renal failure. Creatinine 3.92 and BUN 80. X-ray shows worsening bilateral pulmonary infiltrates. White count 6000, hemoglobin and hematocrit of 10 and 31, and platelet count 292. ANESTHESIA: 1. Worsening respiratory failure secondary to lim positive pneumonia. 2. Possible superimposed congestive heart failure. 3. Fluid overload. 4. Renal failure. 5. Hypertension. 6. Noncompliant. PLAN: 1. A bag of plasma has been ordered convalescent if she agrees to take so. Suggest to call Infectious Disease to see whether she qualifies for remdesivir. She has been here for several days. Empiric antibiotics will be initiated. 2. High-dose steroids. 3. We will follow. TIME SPENT: Consultation note in 70 minutes, 50% in direct patient care. Job ID: [id number]
[2020-05-10] MEDS: Cholecalciferol (Vitamin D3) 400 UNITS TAB PO SCH (08:16)
[2020-05-10] MEDS: ALPRAZolam 0.5 MG TAB PO SCH ×2 (08:16→21:48)
[2020-05-10] MEDS: Senokot 8.6 MG TAB PO SCH ×2 (08:16→21:46)
[2020-05-10] MEDS: NIFEdipine XL 60 MG TAB PO SCH (08:16)
[2020-05-10] MEDS: hydrALAZINE 25 MG TAB PO SCH ×3 (08:16→21:46)
[2020-05-10] MEDS: Folic Acid 1 MG TAB PO SCH (08:16)
[2020-05-10] MEDS: Famotidine/PF 20 mg/2ml Vial SLOW IVP SCH ×2 (08:17→21:45)
[2020-05-10] MEDS: Carvedilol 3.125 MG TAB PO SCH ×2 (08:17→18:12)
[2020-05-10] MEDS: Atorvastatin Calcium 20 MG TAB PO SCH (08:17)
[2020-05-10] MEDS: Dexamethasone 4 mg/ml Vial SLOW IVP SCH ×2 (08:17→21:45)
[2020-05-10] MEDS: Heparin 5,000 UNITS/ML VIAL SC SCH ×3 (08:17→21:45)
[2020-05-10] MEDS: Ascorbic Acid 500 mg Chewable Tablet PO SCH (08:17)
[2020-05-10 10:35] LABS: Hemoglobin 9.4 g/dL (12.0-16.0)
[2020-05-10 10:53] LABS: Anion Gap 18 mmol/L (10-20); BUN (Urea Nitrogen) 79 mg/dL (9.8-20.1); Calc. Creatinine Clearance 21 mL/min (70-130); Calcium 7.8 mg/dL (7.8-10.44); Carbon Dioxide 18 mmol/L (23-31); Chloride 100 mmol/L (98-107); Glucose 197 mg/dL (80-115); Potassium 4.9 mmol/L (3.5-5.1); Sodium 131 mmol/L (136-145)
--- NOTE | 2020-05-10 10:59 | PRG ---
DATE OF SERVICE: 05/10/2020 SUBJECTIVE: This 70-year-old being seen for acute kidney injury. The patient denies nausea, vomiting, or chest pain. PHYSICAL EXAMINATION: General: The patient is awake and alert. Vital Signs: Afebrile, pulse 81, breathing at 16, blood pressure 154/94. HEENT: Head normocephalic and atraumatic. Eyes intact, no ulcers. Nose intact, no ulcers. Ears intact, no ulcers. Neck: Supple. No JVD. Chest: Symmetrical and clear. Cardiovascular: Shows S1 and S2, no rub, no murmur. Gastrointestinal: Abdomen is soft, bowel sounds positive. Extremities: Show no edema or ulcers. Skin: Shows no rash or petechiae. Musculoskeletal: Shows no joint swelling or stiffness. Genitourinary: Shows no Do or CVA tenderness. Neurologic: Motor intact. Cranial nerves intact. LABORATORY DATA: Hemoglobin 9.7. Creatinine is pending. ASSESSMENT AND PLAN: 1. Acute kidney injury with chronic kidney disease multifactorial. I will evaluate the need for dialysis daily. 2. Anemia, stable. 3. Medication based on GFR appropriate. I will follow closely. Job ID: [id number]
[2020-05-10] MEDS: Sodium Chloride 0.9% 1,000 ML IV SCH (12:09)
--- NOTE | 2020-05-10 14:18 | PDOC.HOSPP ---
- Subjective Encounter Date: 05/10/20 Encounter Time: 11:30 Subjective: awake, is comfortable on high flow O2 responds well to verbal stimuli, says she has complete loss of appetite and is not eating most of her food/drinking - Objective Vital Signs & Weight: Vital Signs (12 hours) Temp Pulse Resp BP BP Pulse Ox 05/10/20 11:40 98.6 F 77 24 H 164/74 H 98 05/10/20 08:15 98.6 F 81 26 H 169/74 H 100 05/10/20 04:00 98.9 F 85 24 H 154/94 H 100 05/10/20 03:30 96 Weight Admit Weight 186 lb 4.8 oz Weight 185 lb 9.6 oz I&O: 05/09/20 05/10/20 05/11/20 06:59 06:59 06:59 Intake Total 200 1100 Output Total 400 Balance 200 700 Result Diagrams: 05/10/20 10:21 05/10/20 10:21 Hospitalist ROS - Medication Medications: Active Medications Generic Name Dose Route Start Last Admin Trade Name Freq PRN Reason Stop Dose Admin Acetaminophen 650 mg 05/05/20 03:50 05/05/20 04:19 Acetaminophen 325 Mg Tab PO 650 mg Q4H PRN Administration Mild Pain Albuterol Sulfate 2 puff 05/05/20 03:59 05/05/20 07:40 Albuterol 200 Puff (6.7gm Inhaler) INH 2 puff [id number] PRN Administration Wheezing Alprazolam 0.5 mg 05/02/20 21:00 05/10/20 08:16 Alprazolam 0.5 Mg Tab PO 0.5 mg BID ESTER Administration Ascorbic Acid 1,000 mg 05/02/20 09:00 05/10/20 08:17 Ascorbic Acid 500 Mg Chewable Tablet PO 1,000 mg DAILY ESTER Administration Atorvastatin Calcium 20 mg 05/09/20 09:00 05/10/20 08:17 Atorvastatin Calcium 20 Mg Tab PO 20 mg DAILY ESTER Administration Carvedilol 3.125 mg 05/06/20 17:00 05/10/20 08:17 Carvedilol 3.125 Mg Tab PO 3.125 mg BID- ESTER Administration Cholecalciferol 400 units 05/02/20 09:00 05/10/20 08:16 Cholecalciferol (Vitamin D3) 400 Units Tab PO 400 units DAILY ESTER Administration Dexamethasone 6 mg 05/09/20 21:00 05/10/20 08:17 Dexamethasone 4 Mg/Ml Vial SLOW IVP 6 mg Q12HR ESTER Administration Famotidine 20 mg 05/09/20 21:00 05/10/20 08:17 Famotidine/Pf 20 Mg/2ml Vial SLOW IVP 20 mg BID ESTER Administration Folic Acid 1 mg 05/03/20 09:00 05/10/20 08:16 Folic Acid 1 Mg Tab PO 1 mg DAILY ESTER Administration Heparin Sodium (Porcine) 5,000 units 05/02/20 09:00 05/10/20 08:17 Heparin 5,000 Units/Ml Vial SC 5,000 units TID ESTER Administration Hydralazine HCl 75 mg 05/08/20 09:00 05/10/20 08:16 Hydralazine 25 Mg Tab PO 75 mg TID ESTER Administration Doxycycline Hyclate 100 mg/ 100 mls @ 100 mls/hr 05/09/20 21:00 05/10/20 08:15 Sodium Chloride IVPB 05/19/20 21:01 100 mls Q12HR ESTER Administration Ceftriaxone Sodium 1 gm/ 100 mls @ 200 mls/hr 05/09/20 14:00 05/09/20 15:30 Sodium Chloride IVPB 100 mls Q24HR ESTER Administration Sodium Chloride 1,000 mls @ 50 mls/hr 05/10/20 11:15 05/10/20 12:09 Normal Saline 0.9% IV 1,000 mls .Q20H ESTER Administration Magnesium Citrate 300 ml 05/02/20 19:40 05/04/20 08:13 Magnesium Citrate 300 Ml Bot PO 300 ml DAILYPRN PRN Administration Constipation Mometasone Furoate/Formoterol Fumar 2 puff 05/09/20 18:30 05/10/20 05:26 Mometasone 200 Mcg/Formoterol 5 Mcg 120 Puff Inhaler INH 2 puff BID-RT ESTER Administration Nifedipine 60 mg 05/06/20 09:00 05/10/20 08:16 Nifedipine Xl 60 Mg Tab PO 60 mg DAILY ESTER Administration Ondansetron HCl 4 mg 05/03/20 17:50 05/09/20 20:49 Ondansetron Pf 4 Mg/2 Ml Vial IVP 4 mg Q6H PRN Administration Nausea/Vomiting Ondansetron HCl 4 mg 05/08/20 01:15 05/08/20 14:20 Ondansetron Odt 4 Mg Tab PO 4 mg Q6H PRN Administration Nausea/Vomiting Senna 2 tab 05/08/20 21:00 05/10/20 08:16 Senokot 8.6 Mg Tab PO 2 tab BID ESTER Administration Tramadol HCl 100 mg 05/03/20 23:21 05/09/20 13:37 Tramadol Hcl 50 Mg Tab PO 100 mg Q6H PRN Administration Pain Tramadol HCl 100 mg 05/04/20 21:00 05/09/20 20:49 Tramadol Hcl 50 Mg Tab PO 100 mg HS ESTER Administration Zolpidem Tartrate 10 mg 05/02/20 19:39 05/06/20 20:46 Zolpidem Tartrate 5 Mg Tab PO 10 mg HSPRN PRN Administration Insomnia - Exam General Appearance: awake alert, ill appearing Eye: PERRL, anicteric sclera ENT: no oropharyngeal lesions, moist mucosa Neck: supple, no JVD Heart: RRR, no murmur Respiratory: no wheezes, rales, rhonchi Gastrointestinal: soft, non-tender, non-distended, normal bowel sounds Extremities: no cyanosis, no edema Neurological: cranial nerve grossly intact, no focal deficits Hosp A/P (1) Pneumonia due to COVID-19 virus Code(s): U07.1 - COVID-19; J12.89 - OTHER VIRAL PNEUMONIA Status: Acute (2) Acute kidney injury superimposed on CKD Code(s): N17.9 - ACUTE KIDNEY FAILURE, UNSPECIFIED; N18.9 - CHRONIC KIDNEY DISEASE, UNSPECIFIED Status: Acute (3) Acute respiratory failure with hypoxia Code(s): J96.01 - ACUTE RESPIRATORY FAILURE WITH HYPOXIA Status: Acute (4) HTN (hypertension) Code(s): I10 - ESSENTIAL (PRIMARY) HYPERTENSION Status: Chronic Qualifiers: Hypertension type: essential hypertension Qualified Code(s): I10 - Essential (primary) hypertension (5) Dyslipidemia Code(s): E78.5 - HYPERLIPIDEMIA, UNSPECIFIED Status: Chronic (6) Peripheral neuropathy Code(s): G62.9 - POLYNEUROPATHY, UNSPECIFIED Status: Chronic Qualifiers: Peripheral neuropathy type: polyneuropathy, unspecified Qualified Code(s): G62.9 - Polyneuropathy, unspecified (7) Anemia of renal disease Code(s): D63.1 - ANEMIA IN CHRONIC KIDNEY DISEASE Status: Chronic (8) Metabolic acidosis Code(s): E87.2 - ACIDOSIS Status: Resolved - Plan is on high flow, continue dexamethasone. 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 on coreg and hydralazine, she also takes ambien chronically for insomnia at 10mg IV fluids, progressive worsening of renal function due to poor oral intake and likely contribution from covid, Creatinine around 2.5 at baseline is at high risk for complications with multiple comorbid conditions will need rehab/swing bed for dc plan, agrees to go to [place] swing bed. off clonidine and is on lower dose coreg due to bradycardia with rates dipping into 40's which has resolved now. encourage po intake, is not eating much despite changing to regular diet patient has consented to talk to her daughter, d/w and gave full updat es and guarded prognosis 05/10
[2020-05-10] MEDS: cefTRIAXone\\ROCEPHIN 1 GM in Sodium Chloride 0.9% 100 ML IVPB SCH (15:47)
[2020-05-10] MEDS: traMADol HCl 50 MG TAB PO SCH (21:47)
[2020-05-11] MEDS: Mometasone 200 MCG/Formoterol 5 MCG 120 PUFF INHALER INH SCH ×2 (05:54→17:47)
--- NOTE | 2020-05-11 06:24 | PRG ---
DATE OF SERVICE: 05/10/2020 SUBJECTIVE: Genia Reed remains on high-flow. She is afebrile. OBJECTIVE: VITAL SIGNS: Heart rate is in 80s, respiratory rates in the 20s, oximetry is 100% on 62% via high-flow. Blood pressure 169/74. There are no new problems reported. Aggressive attempt at weaning the FiO2 needs to be undertaken. Communication order will be placed. Her goal O2 saturation should be 88% to 92%. Job ID: [id number]
[2020-05-11] MEDS: Sodium Chloride 0.9% 1,000 ML IV SCH (08:38)
[2020-05-11] MEDS: hydrALAZINE 25 MG TAB PO SCH ×3 (08:39→21:09)
[2020-05-11] MEDS: Heparin 5,000 UNITS/ML VIAL SC SCH ×3 (08:39→21:01)
[2020-05-11] MEDS: Famotidine/PF 20 mg/2ml Vial SLOW IVP SCH ×2 (08:39→21:03)
[2020-05-11] MEDS: Dexamethasone 4 mg/ml Vial SLOW IVP SCH ×2 (08:39→21:05)
[2020-05-11] MEDS: Carvedilol 3.125 MG TAB PO SCH ×2 (08:40→17:47)
[2020-05-11] MEDS: Folic Acid 1 MG TAB PO SCH (08:40)
[2020-05-11] MEDS: Ascorbic Acid 500 mg Chewable Tablet PO SCH (08:40)
[2020-05-11] MEDS: NIFEdipine XL 60 MG TAB PO SCH (08:40)
[2020-05-11] MEDS: Cholecalciferol (Vitamin D3) 400 UNITS TAB PO SCH (08:40)
[2020-05-11] MEDS: Atorvastatin Calcium 20 MG TAB PO SCH (08:40)
[2020-05-11] MEDS: ALPRAZolam 0.5 MG TAB PO SCH ×2 (08:40→21:09)
[2020-05-11] MEDS: Senokot 8.6 MG TAB PO SCH ×2 (08:40→21:08)
--- NOTE | 2020-05-11 10:05 | PRG ---
DATE OF SERVICE: 05/11/2020 SUBJECTIVE: A 70-year-old female being seen for acute kidney injury. The patient is on high-flow oxygen. OBJECTIVE: GENERAL: On examination, the patient is resting. VITAL SIGNS: Pulse 84, breathing 16, blood pressure 146/67. HEAD: Normocephalic. EXTREMITIES: Shows no edema. LABORATORY DATA: Show hemoglobin 9.4. Creatinine is pending. ASSESSMENT: 1. Stage 4 chronic kidney disease, acute kidney injury, improving. 2. Hypertension, stable. 3. Anemia, stable. 4. Medication based on GFR appropriate. I would recommend daily labs. No labs have been ordered. Job ID: [id number]
[2020-05-11 12:50] LABS: Anion Gap 20 mmol/L (10-20); BUN (Urea Nitrogen) 80 mg/dL (9.8-20.1); Calc. Creatinine Clearance 21 mL/min (70-130); Calcium 7.8 mg/dL (7.8-10.44); Carbon Dioxide 17 mmol/L (23-31); Chloride 103 mmol/L (98-107); Glucose 210 mg/dL (80-115); Potassium 4.8 mmol/L (3.5-5.1); Sodium 135 mmol/L (136-145)
--- NOTE | 2020-05-11 13:39 | PDOC.HOSPP ---
- Subjective Encounter Date: 05/11/20 Encounter Time: 09:45 Subjective: awake, is on high flow still not eating well per staff - Objective Vital Signs & Weight: Vital Signs (12 hours) Temp Pulse Resp BP Pulse Ox 05/11/20 09:05 98.9 F 84 20 98 05/11/20 04:40 99.2 F 79 23 H 146/67 H 96 05/11/20 04:19 100 Weight Admit Weight 186 lb 4.8 oz Weight 185 lb 9.6 oz I&O: 05/10/20 05/11/20 05/12/20 06:59 06:59 06:59 Intake Total 3373 Output Total 1000 Balance 2373 Result Diagrams: 05/10/20 10:21 05/11/20 06:00 Hospitalist ROS - Medication Medications: Active Medications Generic Name Dose Route Start Last Admin Trade Name Freq PRN Reason Stop Dose Admin Acetaminophen 650 mg 05/05/20 03:50 05/05/20 04:19 Acetaminophen 325 Mg Tab PO 650 mg Q4H PRN Administration Mild Pain Albuterol Sulfate 2 puff 05/05/20 03:59 05/05/20 07:40 Albuterol 200 Puff (6.7gm Inhaler) INH 2 puff [id number] PRN Administration Wheezing Alprazolam 0.5 mg 05/02/20 21:00 05/11/20 08:40 Alprazolam 0.5 Mg Tab PO 0.5 mg BID ESTER Administration Ascorbic Acid 1,000 mg 05/02/20 09:00 05/11/20 08:40 Ascorbic Acid 500 Mg Chewable Tablet PO 1,000 mg DAILY ESTER Administration Atorvastatin Calcium 20 mg 05/09/20 09:00 05/11/20 08:40 Atorvastatin Calcium 20 Mg Tab PO 20 mg DAILY ESTER Administration Carvedilol 3.125 mg 05/06/20 17:00 05/11/20 08:40 Carvedilol 3.125 Mg Tab PO 3.125 mg BID- ESTER Administration Cholecalciferol 400 units 05/02/20 09:00 05/11/20 08:40 Cholecalciferol (Vitamin D3) 400 Units Tab PO 400 units DAILY ESTER Administration Dexamethasone 6 mg 05/09/20 21:00 05/11/20 08:39 Dexamethasone 4 Mg/Ml Vial SLOW IVP 6 mg Q12HR ESTER Administration Famotidine 20 mg 05/09/20 21:00 05/11/20 08:39 Famotidine/Pf 20 Mg/2ml Vial SLOW IVP 20 mg BID ESTER Administration Folic Acid 1 mg 05/03/20 09:00 05/11/20 08:40 Folic Acid 1 Mg Tab PO 1 mg DAILY ESTER Administration Heparin Sodium (Porcine) 5,000 units 05/02/20 09:00 05/11/20 08:39 Heparin 5,000 Units/Ml Vial SC 5,000 units TID ESTER Administration Hydralazine HCl 75 mg 05/08/20 09:00 05/11/20 08:39 Hydralazine 25 Mg Tab PO 75 mg TID ESTER Administration Doxycycline Hyclate 100 mg/ 100 mls @ 100 mls/hr 05/09/20 21:00 05/11/20 08:38 Sodium Chloride IVPB 05/19/20 21:01 100 mls Q12HR ESTER Administration Ceftriaxone Sodium 1 gm/ 100 mls @ 200 mls/hr 05/09/20 14:00 05/10/20 15:47 Sodium Chloride IVPB 100 mls Q24HR ESTER Administration Sodium Chloride 1,000 mls @ 50 mls/hr 05/10/20 11:15 05/11/20 08:38 Normal Saline 0.9% IV 1,000 mls .Q20H ESTER Administration Magnesium Citrate 300 ml 05/02/20 19:40 05/04/20 08:13 Magnesium Citrate 300 Ml Bot PO 300 ml DAILYPRN PRN Administration Constipation Mometasone Furoate/Formoterol Fumar 2 puff 05/09/20 18:30 05/11/20 05:54 Mometasone 200 Mcg/Formoterol 5 Mcg 120 Puff Inhaler INH 2 puff BID-RT ESTER Administration Nifedipine 60 mg 05/06/20 09:00 05/11/20 08:40 Nifedipine Xl 60 Mg Tab PO 60 mg DAILY ESTER Administration Ondansetron HCl 4 mg 05/03/20 17:50 05/09/20 20:49 Ondansetron Pf 4 Mg/2 Ml Vial IVP 4 mg Q6H PRN Administration Nausea/Vomiting Ondansetron HCl 4 mg 05/08/20 01:15 05/08/20 14:20 Ondansetron Odt 4 Mg Tab PO 4 mg Q6H PRN Administration Nausea/Vomiting Senna 2 tab 05/08/20 21:00 05/11/20 08:40 Senokot 8.6 Mg Tab PO 2 tab BID ESTER Administration Tramadol HCl 100 mg 05/03/20 23:21 05/09/20 13:37 Tramadol Hcl 50 Mg Tab PO 100 mg Q6H PRN Administration Pain Tramadol HCl 100 mg 05/04/20 21:00 05/10/20 21:47 Tramadol Hcl 50 Mg Tab PO 100 mg HS ESTER Administration Zolpidem Tartrate 10 mg 05/02/20 19:39 05/06/20 20:46 Zolpidem Tartrate 5 Mg Tab PO 10 mg HSPRN PRN Administration Insomnia - Exam General Appearance: awake alert Eye: PERRL, anicteric sclera ENT: no oropharyngeal lesions, dry oral mucosa Neck: supple, no JVD Heart: RRR, no murmur Respiratory: no wheezes, rales, rhonchi Gastrointestinal: soft, non-distended, normal bowel sounds Extremities: no cyanosis, no edema Neurological: cranial nerve grossly intact, no focal deficits Psychiatric: A&O x 3 Hosp A/P (1) Pneumonia due to COVID-19 virus Code(s): U07.1 - COVID-19; J12.89 - OTHER VIRAL PNEUMONIA Status: Acute (2) Acute kidney injury superimposed on CKD Code(s): N17.9 - ACUTE KIDNEY FAILURE, UNSPECIFIED; N18.9 - CHRONIC KIDNEY DISEASE, UNSPECIFIED Status: Acute (3) Acute respiratory failure with hypoxia Code(s): J96.01 - ACUTE RESPIRATORY FAILURE WITH HYPOXIA Status: Acute (4) HTN (hypertension) Code(s): I10 - ESSENTIAL (PRIMARY) HYPERTENSION Status: Chronic Qualifiers: Hypertension type: essential hypertension Qualified Code(s): I10 - Essential (primary) hypertension (5) Dyslipidemia Code(s): E78.5 - HYPERLIPIDEMIA, UNSPECIFIED Status: Chronic (6) Peripheral neuropathy Code(s): G62.9 - POLYNEUROPATHY, UNSPECIFIED Status: Chronic Qualifiers: Peripheral neuropathy type: polyneuropathy, unspecified Qualified Code(s): G62.9 - Polyneuropathy, unspecified (7) Anemia of renal disease Code(s): D63.1 - ANEMIA IN CHRONIC KIDNEY DISEASE Status: Chronic (8) Metabolic acidosis Code(s): E87.2 - ACIDOSIS Status: Resolved - Plan is on high flow, continue dexamethasone. 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 on coreg and hydralazine, she also takes ambien chronically for insomnia at 10mg progressive worsening of renal function due to poor oral intake and likely contribution from covid, Creatinine around 2.5 at baseline is at high risk for complications with multiple comorbid conditions will need rehab/swing bed for dc plan, agrees to go to [place] swing bed. off clonidine and is on lower dose coreg due to bradycardia with rates dipping into 40's which has resolved now. encourage po intake, is not eating much despite changing to regular diet patient has consented to talk to her daughter, d/w and gave full updates and guarded prognosis 05/10, 05/2020.
[2020-05-11] MEDS: cefTRIAXone\\ROCEPHIN 1 GM in Sodium Chloride 0.9% 100 ML IVPB SCH (13:41)
--- NOTE | 2020-05-11 15:43 | PRG ---
DATE OF SERVICE: 05/11/2020 SUBJECTIVE: Genia Reed is day #10 in the hospital. OBJECTIVE: VITAL SIGNS: Temperature 99, pulse respiratory rate 24, sats are 92% on flow rate of 50, 48% FiO2, blood pressure 193/77. CHEST: No wheezing. No crackles. CARDIAC: Normal S1, S2. No gallops. ABDOMEN: No masses. LABORATORY STUDIES: Lytes are normal. Creatinine 3. C-reactive protein 9.7. ASSESSMENT: Hoskins positive pneumonia, respiratory failure, azotemia. PLAN: Continue steroids, neb treatments, and empiric antibiotics. Hopefully, we can get her down to low-flow O2. X-ray still shows extensive bilateral infiltrates. Job ID: [id number]
--- NOTE | 2020-05-11 16:35 | CON ---
DATE OF CONSULTATION: REASON FOR CONSULTATION: COVID pneumonia. HISTORY OF PRESENT ILLNESS: A 70-year-old who has a history of obesity, type 2 diabetes, hyperlipidemia, hypertension, coronary artery disease, and CKD, who was admitted on May 01 with 3 weeks history of progressively worsening respiratory symptoms including dyspnea and some cough, so she came in on the , and her BP 150/94, O2 saturations were 100% on room air. The initial imaging on the showed possible bilateral lower lobe infiltrates. She had a positive SARS-CoV-2 RT PCR on the , and then she has been treated with zinc, vitamins. Remdesivir was held because of renal function. Corticosteroids were started and markers were monitored. They gave her azithromycin and Rocephin. Dr. Wilkes was consulted, and she was continued on Rocephin, added mometasone, doxycycline. Over the past week, O2 saturations have trended up from 93% to 98% and she started at 2 L nasal cannula and now she is up to high-flow at 50. Currently, Ms. Reed states that she is improving slowly. Denies headaches. Some vomiting. She has very prompt, pronounced anorexia, hard time in drinking fluids, cannot eat anything, has not eaten anything in 7 days apparently. She denies chest pain. No abdominal pain. She is voiding in the commode. PAST MEDICAL HISTORY: Includes type 2 diabetes, hyperlipidemia, CKD stage 4, neuropathy, coronary artery disease, CHF, and constipation. SOCIAL HISTORY: Never smoker. She was living home alone. FAMILY HISTORY: Noncontributory. ALLERGIES: CLINDAMYCIN, CRESTOR, AND VISTARIL. CURRENT MEDICATIONS: 1. Inhalers. 2. Vitamin C. 3. Lipitor. 4. Rocephin. 5. Decadron. 6. Famotidine. 7. Mometasone. 8. Tramadol. PHYSICAL EXAMINATION: VITAL SIGNS: T-max 100.3 on the , she is now 99; blood pressure 190/70, heart rate 80, respiratory rate 20 to 24, and O2 saturation 92% to 98%, 50 high-flow nasal cannula. GENERAL: She appears still quite ill from this disease, but she is awake and speaking in full sentences. HEENT: Ocular movements conjugate. Oral cavity is dry. NECK: No jugular vein distention. LUNGS: Symmetric air entry. Few crackles at the bases. HEART: S1 and S2, regular rate. ABDOMEN: Soft. Not distended or tender. No ascites. No bladder distention. MUSCULOSKELETAL: No joint inflammatory activity. No edema. Pulses 1+ in dorsalis pedis. She is diffusely weak, but able to move extremities. DIAGNOSTIC STUDIES: Latest labs: White cell count is at 15.9, hemoglobin 9.7, and platelets 400. D-dimer 0.84. Creatinine started at 2.44, was went up to 3.92, now is 3.29. Ferritin was started at 277, went up to 1900, now is at 1700. CRP was started at 1.74 and went up instead of going down, so yesterday was 14.67, now is 9.70. In terms of imaging, her last imaging studies from 2 days ago and it showed worsening pneumonitis throughout bilateral lungs. Two sets of blood culture, no growth on the . Urinalysis was not done. ASSESSMENT: Type 2 diabetes, cardiomyopathy, chronic kidney disease with worsening of her inflammatory process despite Decadron and worsening infiltrates. Her oxygenation has worsened and she is still very anorectic. Inflammatory markers went up instead of going down. She is really having a rough course over the past week. Possibility of superimposed processes is a concern. She is not eligible for CT angio. She is on heparin for prophylaxis. This is probably at least the middle of the 4th week of her illness, so I think she has a low likelihood of still having a viable virus, although the inflammatory process is very active at this point in time. The possibility of thromboembolism is considered, may want to evaluate her for that with a V/Q scan and a duplex ultrasound of lower extremities. I think she is beyond the timeline where she would be infectious, so I think we can proceed with those tests. Her LETICIA is 9.8, so still in a relatively safe range, but hopefully she can turnaround. This is our biggest challenge, patients that deteriorate despite the limited interventions that we have available to halt and reverse the lung inflamm process. Job ID: [id number] [facility]ITAL[facility]
[2020-05-11] MEDS: traMADol HCl 50 MG TAB PO SCH (21:07)
[2020-05-11] MEDS: Zolpidem Tartrate 5 MG TAB PO PRN (21:08)
[2020-05-12] MEDS: Sodium Chloride 0.9% 1,000 ML IV SCH (04:25)
[2020-05-12 05:36] LABS: Albumin 3.3 g/dL (3.4-4.8); Anion Gap 21 mmol/L (10-20); BUN (Urea Nitrogen) 89 mg/dL (9.8-20.1); BUN/Creatinine Ratio 26.81; Calc. Creatinine Clearance 21 mL/min (70-130); Carbon Dioxide 14 mmol/L (23-31); Chloride 106 mmol/L (98-107); Glucose 237 mg/dL (80-115); Phosphorus 3.4 mg/dL (2.3-4.7); Potassium 4.8 mmol/L (3.5-5.1); Sodium 136 mmol/L (136-145)
[2020-05-12] MEDS: Mometasone 200 MCG/Formoterol 5 MCG 120 PUFF INHALER INH SCH ×2 (06:42→18:55)
[2020-05-12 07:45] LABS: Band 1 % (5-11); Crenated RBC SLIGHT = 1-5 cells (100X) (None Seen); Hemoglobin 8.5 g/dL (12.0-16.0); Lymphocytes 5 % (21-51); MDiff Complete? YES; Mean Corpuscular HGB CONC 30.6 g/dL (32.0-36.0); Mean Corpuscular Hemoglobin 26.5 pg (27.0-31.0); Mean Corpuscular Volume 86.7 fL (78.0-98.0); Mean Platelet Volume 7.8 fL (7.4-10.4); Neutrophil 94 % (42-75); Ovalocytes SLIGHT = 2-5 cells (100X) (0-1/hpf); Platelet Count 452 thou/uL (130-400); Polychromasia SLIGHT = 2-3 cells (100X) (0-2/hpf); RBC Distribution Width 14.7 % (11.5-14.5); Red Blood Cell (RBC) Count 3.22 mill/uL (4.20-5.40); Schistocytes SLIGHT = 2-5 cells (100X) (0-1/hpf)
[2020-05-12] MEDS: Heparin 5,000 UNITS/ML VIAL SC SCH ×3 (09:31→23:56)
[2020-05-12] MEDS: Folic Acid 1 MG TAB PO SCH (09:31)
[2020-05-12] MEDS: Cholecalciferol (Vitamin D3) 400 UNITS TAB PO SCH (09:31)
[2020-05-12] MEDS: hydrALAZINE 25 MG TAB PO SCH ×3 (09:32→23:56)
[2020-05-12] MEDS: NIFEdipine XL 60 MG TAB PO SCH (09:32)
[2020-05-12] MEDS: ALPRAZolam 0.5 MG TAB PO SCH ×2 (09:32→23:58)
[2020-05-12] MEDS: Senokot 8.6 MG TAB PO SCH ×2 (09:32→23:57)
[2020-05-12] MEDS: Famotidine/PF 20 mg/2ml Vial SLOW IVP SCH ×2 (09:32→23:56)
[2020-05-12] MEDS: Ascorbic Acid 500 mg Chewable Tablet PO SCH (09:33)
[2020-05-12] MEDS: Carvedilol 3.125 MG TAB PO SCH ×2 (09:33→18:21)
[2020-05-12] MEDS: Dexamethasone 4 mg/ml Vial SLOW IVP SCH ×2 (09:33→23:56)
[2020-05-12] MEDS: Atorvastatin Calcium 20 MG TAB PO SCH (09:33)
--- NOTE | 2020-05-12 09:34 | PRG ---
DATE OF SERVICE: 05/12/2020 SUBJECTIVE: This is a 70-year-old female being seen for acute kidney injury. The patient does complain of dyspnea. OBJECTIVE: GENERAL: The patient is resting. VITAL SIGNS: Pulse 79, breathing 16, blood pressure 171/73. HEENT: Head normocephalic and atraumatic. Eyes intact, no ulcers. Nose intact, no ulcers. Ears intact, no ulcers. Neck: Supple. No JVD. Chest: Symmetrical and clear. Cardiovascular: Shows S1 and S2, no rub, no murmur. Gastrointestinal: Abdomen is soft, bowel sounds positive. Extremities: Show no edema or ulcers. Skin: Shows no rash or petechiae. Musculoskeletal: Shows no joint swelling or stiffness. Genitourinary: Shows no Do or CVA tenderness. Neurologic: Motor intact. Cranial nerves intact. LABS: Show hemoglobin is 8.5, creatinine 3.3. ASSESSMENT/RECOMMENDATION: 1. Acute kidney injury with chronic kidney disease, stage 4, stable. 2. Hypertension, stable. 3. Anemia, stable. 4. No indication for dialysis. Job ID: [id number]
[2020-05-12] MEDS ORDERED: Succinylcholine 200 MG/10 ml SYRINGE FS ONE (09:48)
[2020-05-12] MEDS ORDERED: PROPOFOL 200 MG/20 ML VIAL ONE (09:48)
[2020-05-12] MEDS ORDERED: cloNIDine 0.1 MG TAB PO PRN (10:10)
--- NOTE | 2020-05-12 11:10 | EKG ---
Test Reason : Blood Pressure : / mmHG Vent. Rate : 061 BPM Atrial Rate : 061 BPM P-R Int : 164 ms QRS Dur : 104 ms QT Int : 434 ms P-R-T Axes : 056 -48 069 degrees QTc Int : 436 ms Normal sinus rhythm Incomplete right bundle branch block Left anterior fascicular block Left ventricular hypertrophy with repolarization abnormality Cannot rule out Septal infarct , age undetermined Abnormal ECG Confirmed by ISABEL YATES DO ([id number]), commissioning editor JAXON BERGERON ([id number] on 05/12/2020 11:10:05 AM Referred By: Confirmed By:ISABEL YATES DO
[2020-05-12] MEDS ORDERED: Sodium Bicarbonate 150 MEQ in Dextrose 5% in Water 1,000 ML IV SCH (11:30)
[2020-05-12 11:47] LABS: Base Excess (BEa) -6.5 mEq/L (-2.0 to +3.0); CO2 Tension 32.2 mmHg (35.0-45.0); Calcium, Ionized (arterial) 1.14 mmol/L (1.12-1.30); Carboxyhemoglobin (COHb) 0.4 gm% (0.0-3.0); Hemoglobin (Hb) 8.8 g/dL (12.0-16.0); Potassium - ABG Lab 4.47 mmol/L (3.70-5.30); pH, Arterial 7.37 (7.35-7.45)
[2020-05-12 12:02] LABS: Puncture Site RRA
--- NOTE | 2020-05-12 14:45 | PRG ---
DATE OF SERVICE: 05/12/2020 SUBJECTIVE: This morning, she has more difficulty breathing. OBJECTIVE: VITAL SIGNS: Temperature 97, pulse 60, respiratory rate 18, saturations 95% on high-flow, blood pressure 103/95. CHEST: Crackles. No wheezing. CARDIAC: Normal S1. No gallops. LABORATORY DATA: White count 15,000; H and H 8 and 25; platelet count is normal. The pO2 is 42, pCO2 is 30, pH is 7.37. Creatinine is 3 and BUN is 89. ASSESSMENT: Respiratory failure, multiorgan problem, renal failure, lim positive pneumonia. PLAN: Doxycycline and steroids on board. Continue supportive care and high-flow. Advised to sleep in the supine position. Job ID: [id number]
--- NOTE | 2020-05-12 15:41 | PRG ---
DATE OF SERVICE: 05/12/2020 SUBJECTIVE: Ms. Reed is awake. She follows commands and understands the questions. Her mobility is quite limited. Does not appear in distress and she is cooperative. OBJECTIVE: VITAL SIGNS: She has been afebrile and she is breathing 18 times a minute, still on 50 L high-flow nasal cannula, saturating at 95, blood pressure 103/91. LUNGS: With a few crackles at the bases. HEART: S1 and S2. ABDOMEN: Soft. Not distended. Voiding in the bedside commode. I/O balance yesterday 2300 and today 1800. LABORATORY STUDIES: White cell count 15,000, hemoglobin 8.5, platelets 452, and 94% neutrophils. D-dimer 0.84, that was about a week ago, has not been repeated since. Sodium 136, creatinine is at 3.32, which is higher than admission. Ferritin is down to 1795 yesterday. CRP yesterday down to 9.7. ASSESSMENT AND DISCUSSION: Type 2 diabetes, cardiomyopathy, chronic kidney disease with worsening inflammatory process despite Decadron, and as usual, this illness with patients with risk factors sometimes will enter this protracted course, sometimes with poor outcomes, even though it is hard to really predict. Her LETICIA score is still acceptable at this point, but the problem is the protracted nature of the lung inflammatory process and impairment of air exchange, which eventually leads to fatigue and deterioration of loss of respiratory function. She is in the middle of the 4th week of illness and so this portends a quite difficult situation for her going forward. Job ID: [id number] [facility]
--- NOTE | 2020-05-12 15:57 | PDOC.HOSPP ---
- Subjective Encounter Date: 05/12/20 Encounter Time: 11:20 Subjective: pt up in bed oriented to self. - Objective Vital Signs & Weight: Vital Signs (12 hours) Temp Pulse Resp BP BP Pulse Ox 05/12/20 11:50 89 L 05/12/20 11:24 97.8 F 60 18 103/91 H 95 05/12/20 09:00 98.5 F 85 20 191/82 H 94 L 05/12/20 05:20 98.2 F 84 26 H 194/76 H 94 L Weight Admit Weight 186 lb 4.8 oz Weight 185 lb 9.6 oz I&O: 05/11/20 05/12/20 05/13/20 06:59 06:59 06:59 Intake Total 3373 2123.5 Output Total 1000 300 Balance 2373 1823.5 Result Diagrams: 05/12/20 05:13 05/12/20 05:13 Hospitalist ROS - Review of Systems Cardiovascular: denies: chest pain, palpitations, orthopnea, paroxysmal noc. dyspnea, edema, light headedness, other Gastrointestinal: denies: nausea, vomiting, abdominal pain, diarrhea, constipation, melena, hematochezia, other Genitourinary: denies: dysuria, frequency, incontinence, hematuria, retention, other - Medication Medications: Active Medications Generic Name Dose Route Start Last Admin Trade Name Freq PRN Reason Stop Dose Admin Acetaminophen 650 mg 05/05/20 03:50 05/05/20 04:19 Acetaminophen 325 Mg Tab PO 650 mg Q4H PRN Administration Mild Pain Albuterol Sulfate 2 puff 05/05/20 03:59 05/05/20 07:40 Albuterol 200 Puff (6.7gm Inhaler) INH 2 puff [id number] PRN Administration Wheezing Alprazolam 0.5 mg 05/02/20 21:00 05/12/20 09:32 Alprazolam 0.5 Mg Tab PO 0.5 mg BID ESTER Administration Ascorbic Acid 1,000 mg 05/02/20 09:00 05/12/20 09:33 Ascorbic Acid 500 Mg Chewable Tablet PO Not Given DAILY ESTER Atorvastatin Calcium 20 mg 05/09/20 09:00 05/12/20 09:33 Atorvastatin Calcium 20 Mg Tab PO 20 mg DAILY ESTER Administration Carvedilol 3.125 mg 05/06/20 17:00 05/12/20 09:33 Carvedilol 3.125 Mg Tab PO 3.125 mg BID-WM ESTER Administration Cholecalciferol 400 units 05/02/20 09:00 05/12/20 09:31 Cholecalciferol (Vitamin D3) 400 Units Tab PO 400 units DAILY ESTER Administration Dexamethasone 6 mg 05/09/20 21:00 05/12/20 09:33 Dexamethasone 4 Mg/Ml Vial SLOW IVP 6 mg Q12HR ESTER Administration Famotidine 20 mg 05/09/20 21:00 05/12/20 09:32 Famotidine/Pf 20 Mg/2ml Vial SLOW IVP 20 mg BID ESTER Administration Folic Acid 1 mg 05/03/20 09:00 05/12/20 09:31 Folic Acid 1 Mg Tab PO 1 mg DAILY ESTER Administration Heparin Sodium (Porcine) 5,000 units 05/02/20 09:00 05/12/20 15:18 Heparin 5,000 Units/Ml Vial SC 5,000 units TID ESTER Administration Hydralazine HCl 75 mg 05/08/20 09:00 05/12/20 15:18 Hydralazine 25 Mg Tab PO 75 mg TID ESTER Administration Doxycycline Hyclate 100 mg/ 100 mls @ 100 mls/hr 05/09/20 21:00 05/12/20 09:33 Sodium Chloride IVPB 05/19/20 21:01 100 mls Q12HR ESTER Administration Sodium Bicarbonate 150 meq/ 1,150 mls @ 50 mls/hr 05/12/20 11:30 05/12/20 12:17 Dextrose/Water IV 1,150 mls .Q23H ESTER Administration Magnesium Citrate 300 ml 05/02/20 19:40 05/04/20 08:13 Magnesium Citrate 300 Ml Bot PO 300 ml DAILYPRN PRN Administration Constipation Mometasone Furoate/Formoterol Fumar 2 puff 05/09/20 18:30 05/12/20 06:42 Mometasone 200 Mcg/Formoterol 5 Mcg 120 Puff Inhaler INH 2 puff BID-RT ESTER Administration Nifedipine 60 mg 05/06/20 09:00 05/12/20 09:32 Nifedipine Xl 60 Mg Tab PO 60 mg DAILY ESTER Administration Ondansetron HCl 4 mg 05/03/20 17:50 05/09/20 20:49 Ondansetron Pf 4 Mg/2 Ml Vial IVP 4 mg Q6H PRN Administration Nausea/Vomiting Ondansetron HCl 4 mg 05/08/20 01:15 05/08/20 14:20 Ondansetron Odt 4 Mg Tab PO 4 mg Q6H PRN Administration Nausea/Vomiting Senna 2 tab 05/08/20 21:00 05/12/20 09:32 Senokot 8.6 Mg Tab PO 2 tab BID ESTER Administration Tramadol HCl 100 mg 05/03/20 23:21 05/09/20 13:37 Tramadol Hcl 50 Mg Tab PO 100 mg Q6H PRN Administration Pain Tramadol HCl 100 mg 05/04/20 21:00 05/11/20 21:07 Tramadol Hcl 50 Mg Tab PO 100 mg HS ESTER Administration Zolpidem Tartrate 10 mg 05/02/20 19:39 05/11/20 21:08 Zolpidem Tartrate 5 Mg Tab PO 10 mg HSPRN PRN Administration Insomnia - Exam Neck: negative: supple, symmetric, no JVD, no thyromegaly, no lymphadenopathy, no carotid bruit, JVD Heart: negative: RRR, no murmur, no gallops, no rubs, normal peripheral pulses, irregular, diminshed peripheral pulses, murmur present, II/IV, III/IV Respiratory: rales Gastrointestinal: negative: soft, non-tender, non-distended, normal bowel sounds, no palpable masses, no hepatomegaly, no splenomegaly, no bruit, no guarding, no rigidity, tender to palpation, distended, diminished bowl sounds, voluntary guarding Hosp A/P - Plan (1) Pneumonia due to COVID-19 virus Code(s): U07.1 - COVID-19; J12.89 - OTHER VIRAL PNEUMONIA Status: Acute (2) Acute kidney injury superimposed on CKD Code(s): N17.9 - ACUTE KIDNEY FAILURE, UNSPECIFIED; N18.9 - CHRONIC KIDNEY DISEASE, UNSPECIFIED Status: Acute (3) Acute respiratory failure with hypoxia Code(s): J96.01 - ACUTE RESPIRATORY FAILURE WITH HYPOXIA Status: Acute (4) HTN (hypertension) Code(s): I10 - ESSENTIAL (PRIMARY) HYPERTENSION Status: Chronic Qualifiers: Hypertension type: essential hypertension Qualified Code(s): I10 - Essential (primary) hypertension (5) Dyslipidemia Code(s): E78.5 - HYPERLIPIDEMIA, UNSPECIFIED Status: Chronic (6) Peripheral neuropathy Code(s): G62.9 - POLYNEUROPATHY, UNSPECIFIED Status: Chronic Qualifiers: Peripheral neuropathy type: polyneuropathy, unspecified Qualified Code(s): G62.9 - Polyneuropathy, unspecified (7) Anemia of renal disease Code(s): D63.1 - ANEMIA IN CHRONIC KIDNEY DISEASE Status: Chronic (8) Metabolic acidosis Code(s): E87.2 - ACIDOSIS Status: Resolved - Plan is on high flow, continue dexamethasone. 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 on coreg and hydralazine, she also takes ambien chronically for insomnia at 10mg progressive worsening of renal function due to poor oral intake and likely contribution from covid, Creatinine around 2.5 at baseline is at high risk for complications with multiple comorbid conditions will need rehab/swing bed for dc plan, agrees to go to [facility] swing bed. off clonidine and is on lower dose coreg due to bradycardia with rates dipping into 40's which has resolved now. encourage po intake, is not eating much despite changing to regular diet patient has consented to talk to her daughter, d/w and gave full updates and guarded prognosis 05/10, 05/2020. 1/2 patient appeared little bit more confused today ABG indicated significant hypoxia. Her high flow was titrated accordingly per respiratory therapy. Patient continues not to eat very much. Patient encouraged to eat or drink supplements. Chest x-ray indicated worsening pneumonia. Worsening creatinine. We will hold all nephrotoxins. We will continue doxycycline and stop ceftriaxone. Patient started on a bicarb drip per nephrology.
[2020-05-12] MEDS: Insulin Glargine 5 UNITS in Pre-Filled Syringe SC SCH (18:21)
[2020-05-12] MEDS ORDERED: Lorazepam 2 MG/ML VIAL SLOW IVP PRN (19:07)
[2020-05-12 20:16] LABS: Actual Bicarbonate (HCO3a) 18.2 mEq/L (22-28); Base Excess (BEa) -6.3 mEq/L (-2.0 to +3.0); CO2 Tension 32.2 mmHg (35.0-45.0); Calcium, Ionized (arterial) 1.14 mmol/L (1.12-1.30); Carboxyhemoglobin (COHb) 0.2 gm% (0.0-3.0); Potassium - ABG Lab 4.68 mmol/L (3.70-5.30); pH, Arterial 7.37 (7.35-7.45)
[2020-05-12 20:19] LABS: O2 Tension (PaO2), arterial 47.6 mmHg (> 80.0); Puncture Site RRA
[2020-05-12] MEDS ORDERED: Propofol 1,000 MG/100 ML VIAL IV ONE (20:48)
--- NOTE | 2020-05-12 21:19 | RAD ---
EXAM: CHEST ONE VIEW HISTORY: Endotracheal tube placement. COMPARISON: 05/09/2020 FINDINGS: Endotracheal tube has been placed with the tip overlying the T3 vertebral body and above the level of the ton. Patient is rotated to the left limiting evaluation. There is confluent opacity now present in the right upper lung zone with patchy parenchymal opacities seen throughout the lungs bila terally which also appear mildly increased. There is prominent gaseous distention of the stomach incompletely visualized on this exam. IMPRESSION: 1. Worsening Covid pneumonia. 2. Endotracheal tube in place with tip overlying the T3 vertebral body. 3. Prominent gaseous distention of the stomach.
[2020-05-12] MEDS ORDERED: Fentanyl BOLUS 250 ML IVPB PRN (21:30)
[2020-05-12] MEDS ORDERED: Morphine 2 MG/ML VIAL SLOW IVP PRN (21:30)
[2020-05-12] MEDS ORDERED: DISCONTINUE PREVIOUS NARCOTIC PAIN MEDICATIONS AND BENZODIAZEPINES FS SCH (21:30)
[2020-05-12] MEDS ORDERED: Propofol BOLUS 1,000 MG/100 ML VIAL IV PRN (21:30)
[2020-05-12] MEDS: fentaNYL Citrate/PF 2,000 MCG in Sodium Chloride 0.9% 60 ML IV SCH (21:42)
[2020-05-12] MEDS ORDERED: Vecuronium 10 MG VIAL ONE (21:54)
--- NOTE | 2020-05-12 22:07 | PDOC.BPN ---
- Brief Progress Note Encounter Date: 05/12/20 Code fouzia called earlier this evening on account of worsening hypoxemia. Patient was admitted with Covid and she has been on high flow. She was found at saturation in the 40s. She had apparently inadvertently removed her nasal device. She was placed on high flow at maximum in combination with maximal nonrebreather however had a saturation initially improved to the low 90s but gradually declined to the high 80s. ABG showed severe hypoxemia in spite of the amount of oxygen she was on. Decision was made to transfer her to the CCU for intubation. She was intubated and still remained hypoxic in the 80s 100% oxygen. Dr. Wilkes was consulted with adjustments to vent.
[2020-05-12] MEDS: traMADol HCl 50 MG TAB PO SCH (23:58)
--- NOTE | 2020-05-13 00:04 | PDOC.CNTRL ---
Central Line Procedure Note - Description Focused site: femoral vein: Right Ultrasound guidance: Yes Patient tolerated procedure: well Procedure in Details: INDICATION: Code green due to respiratory distress 2/2 to COVID PNA resulting in intubation, need for multiple lines and unable to obtain peripheral access, hypotension PROCEDURE FREELANCE DIGITAL PROJECT MANAGER: Katja ATTENDING PHYSICIAN: Dr. Christianson In Attendance Y Ultrasound Used: Y CONSENT: Two physician emergency consent My hands were washed immediately prior to the procedure. I wore a surgical cap, mask with protective eyewear, sterile gown and sterile gloves throughout the procedure. The RIGHT inguinal region was prepped using chlorhexidine scrub and draped in sterile fashion using a full drape and sterile probe cover employed. The femoral pulse was identified. Anesthesia was not used as patient was sedated. Palpating the femoral pulse throughout the procedure, the introducer needle was inserted medial to the femoral artery, inferior to the inguinal crease and into the femoral vein. Venous blood was withdrawn. The syringe was removed and a guidewire was advanced into the introducer needle. A small incision was made at the skin surface with a scalpel and the introducer needle was exchanged for a dilator over the guidewire. After appropriate dilation was obtained, the dilator was exchanged over the wire for a 3 lumen central venous catheter. The wire was removed and the catheter was sutured in place at the hub. A sterile sorbaview shield was placed over the catheter at the insertion site. The patient tolerated the procedure without any hemodynamic compromise. At time of procedure completion, all ports aspirated and flushed properly. Estimated blood loss is 15 cc. ATTENDING ADDENDUM: I was present and supervised the entire procedure.
[2020-05-13] MEDS: Propofol 1,000 MG/100 ML VIAL IV PRN ×7 (00:56→22:11)
[2020-05-13] MEDS: Carvedilol 3.125 MG TAB PO SCH ×2 (07:50→17:07)
--- NOTE | 2020-05-13 07:57 | RAD ---
Chest one view HISTORY: COVID pneumonia. Follow-up. COMPARISON: 05/12/2020. FINDINGS: Cardiac silhouette is magnified by projection and now better visualized, as patchy areas of dense widespread infiltrates are less dense than on the prior exam. Mediastinum is midline. Endotracheal catheter unchanged in position. Nasogastric tube now descends to the stomach. Pulmonary vasculature slightly engorged. No evidence of pneumothorax. IMPRESSION : Moderate improvement in density and prominence of patchy bilateral infiltrates. Nasogastric tube in good position with decompression of the stomach.
[2020-05-13 08:52] LABS: Anion Gap 21 mmol/L (10-20); BUN (Urea Nitrogen) 106 mg/dL (9.8-20.1); Calc. Creatinine Clearance 22 mL/min (70-130); Calcium 8.1 mg/dL (7.8-10.44); Carbon Dioxide 18 mmol/L (23-31); Chloride 103 mmol/L (98-107); Glucose 312 mg/dL (80-115); Potassium 4.3 mmol/L (3.5-5.1); Sodium 138 mmol/L (136-145)
[2020-05-13] MEDS: Insulin Glargine 5 UNITS in Pre-Filled Syringe SC SCH ×2 (08:55→08:56)
[2020-05-13] MEDS: NIFEdipine XL 60 MG TAB PO SCH (08:56)
[2020-05-13] MEDS: Senokot 8.6 MG TAB PO SCH ×2 (08:56→20:13)
[2020-05-13] MEDS: Ascorbic Acid 500 mg Chewable Tablet PO SCH (08:56)
[2020-05-13] MEDS: Atorvastatin Calcium 20 MG TAB PO SCH (08:57)
[2020-05-13] MEDS: hydrALAZINE 25 MG TAB PO SCH ×3 (08:57→20:12)
[2020-05-13] MEDS: Folic Acid 1 MG TAB PO SCH (08:57)
[2020-05-13] MEDS: ALPRAZolam 0.5 MG TAB PO SCH ×2 (08:58→19:52)
[2020-05-13] MEDS: Dexamethasone 4 mg/ml Vial SLOW IVP SCH ×2 (08:58→20:11)
[2020-05-13] MEDS: Famotidine/PF 20 mg/2ml Vial SLOW IVP SCH ×2 (08:58→20:12)
[2020-05-13] MEDS: Heparin 5,000 UNITS/ML VIAL SC SCH ×3 (08:58→20:12)
[2020-05-13 09:07] LABS: Actual Bicarbonate (HCO3a) 18.9 mEq/L (22-28); Base Excess (BEa) -3.5 mEq/L (-2.0 to +3.0); Calcium, Ionized (arterial) 1.07 mmol/L (1.12-1.30); Carboxyhemoglobin (COHb) 1.3 gm% (0.0-3.0); Hemoglobin (Hb) 6.3 g/dL (12.0-16.0); O2 Tension (PaO2), arterial 119.5 mmHg (> 80.0); Potassium - ABG Lab 4.16 mmol/L (3.70-5.30); pH, Arterial 7.52 (7.35-7.45)
[2020-05-13] MEDS: Cholecalciferol (Vitamin D3) 400 UNITS TAB PO SCH (09:10)
[2020-05-13] MEDS ORDERED: Dextrose 5% in Water 1,000 ML IV PRN (09:28)
[2020-05-13 09:37] LABS: ALV-art Gradient 563.875 mmHg (0-20); CO2 Tension 23.7 mmHg (35.0-45.0); Puncture Site RRA
--- NOTE | 2020-05-13 09:39 | PRG ---
DATE OF SERVICE: 05/13/2020 Day 11 in the hospital. Intubated yesterday. Day number 1 with progressive respiratory failure. Her azotemia is slightly worse, appears to be prerenal. OBJECTIVE: VITAL SIGNS: Temperature is 98. Pulse 67, blood pressure 145/60, respiratory rate 18, saturations 100%. I's and O's have been consistently positive. CHEST: No wheezing. No crackles. CARDIAC: Normal S1, S2. Creatinine is 3, BUN is 106. White count was unremarkable. X-ray shows improvement in bilateral infiltrates, current positive pneumonia, respiratory failure, renal failure, diabetes. She appears to be prerenal. We are going to start IV fluids, supportive care, antibiotics, steroids. Vent being adjusted since oxygenation better. One-half hour of critical time. Job ID: [id number]
[2020-05-13] MEDS: Mometasone 200 MCG/Formoterol 5 MCG 120 PUFF INHALER INH SCH ×2 (09:47→22:32)
[2020-05-13] MEDS: Insulin Regular 300 UNITS/3 ML VIAL SC PRN ×3 (10:26→20:45)
[2020-05-13] MEDS: Cefepime 1 GM in Sodium Chloride 0.9% 100 ML IVPB SCH ×2 (10:27→21:22)
[2020-05-13] MEDS: Sodium Chloride 0.9% 1,000 ML IV SCH ×2 (10:28→20:11)
[2020-05-13 10:31] LABS: Band 3 % (5-11); Elliptocytes SLIGHT = 2-5 cells (100X) (0-1/hpf); Hemoglobin 8.5 g/dL (12.0-16.0); Hypochromia SLIGHT = 6-15 cells (100X) (0-5/hpf); Lymphocytes 5 % (21-51); MDiff Complete? YES; Mean Corpuscular Hemoglobin 26.9 pg (27.0-31.0); Mean Platelet Volume 8.1 fL (7.4-10.4); Monocytes 3 % (0-10); Neutrophil 89 % (42-75); Platelet Count 455 thou/uL (130-400); Platelet Morphology Comment Appears Increased; Polychromasia SLIGHT = 2-3 cells (100X) (0-2/hpf); RBC Distribution Width 14.7 % (11.5-14.5); Red Blood Cell (RBC) Count 3.16 mill/uL (4.20-5.40); Schistocytes SLIGHT = 2-5 cells (100X) (0-1/hpf); White Blood Cell (WBC) Count 20.5 thou/uL (4.8-10.8)
[2020-05-13 10:52] LABS: Free T4 (Free Thyroxine) 1.1 ng/dL (0.70-1.48); Thyroid Stimulating Hormone 0.1425 uIU/mL (0.35-4.94)
[2020-05-13 11:13] LABS: Methylmalonic Acid 555 nmol/L (0-378)
--- NOTE | 2020-05-13 11:58 | PRG ---
DATE OF SERVICE: 05/13/2020 SUBJECTIVE: A 70-year-old female being seen for acute kidney injury. Overnight events reported. The patient is intubated. OBJECTIVE: General: The patient is resting. Vital Signs: Pulse 75, breathing 16, blood pressure 140/73, HEENT: Head normocephalic and atraumatic. Eyes intact, no ulcers. Nose intact, no ulcers. Ears intact, no ulcers. Neck: Supple. No JVD. Chest: Symmetrical and clear. Cardiovascular: Shows S1 and S2, no rub, no murmur. Gastrointestinal: Abdomen is soft, bowel sounds positive. Extremities: Show no edema or ulcers. Skin: Shows no rash or petechiae. Musculoskeletal: Shows no joint swelling or stiffness. Genitourinary: Shows no Do or CVA tenderness. Neurologic: The patient is resting. LABORATORY DATA: Hemoglobin 8.5. Creatinine 0.3. ASSESSMENT: 1. Chronic kidney disease, stage 4, stable. 2. Hypertensive. 3. Anemia, stable. Agree with hydration, if the renal function does not improve, consider renal replacement therapy. This was discussed with the patient yesterday and she had refused. Job ID: [id number]
[2020-05-13] MEDS: Albumin 25% 25 GM/100 ML BOT IVPB SCH ×2 (13:59→20:11)
[2020-05-13] MEDS: traMADol HCl 50 MG TAB PO SCH (19:52)
[2020-05-13] MEDS: fentaNYL Citrate/PF 2,000 MCG in Sodium Chloride 0.9% 60 ML IV SCH (20:46)
[2020-05-14] MEDS: Albumin 25% 25 GM/100 ML BOT IVPB SCH (00:56)
[2020-05-14] MEDS: Propofol 1,000 MG/100 ML VIAL IV PRN ×3 (02:53→15:32)
[2020-05-14 04:19] LABS: #Lymphocytes 1.2 thou/uL (1.20-3.40); #Monocytes 0.4 thou/uL (0.11-0.59); #Neutrophils 13.5 thou/uL (1.40-6.50); %Basophils 0.1 % (0.0-1.0); %Eosinophils 0.1 % (0.0-10.0); %Lymphocytes 8.1 % (21.0-51.0); %Monocytes 2.9 % (0.0-10.0); %Neutrophils 88.8 % (42.0-75.0); Hemoglobin 7.2 g/dL (12.0-16.0); Mean Corpuscular HGB CONC 31.3 g/dL (32.0-36.0); Mean Corpuscular Hemoglobin 26.6 pg (27.0-31.0); Mean Corpuscular Volume 84.8 fL (78.0-98.0); Mean Platelet Volume 8.2 fL (7.4-10.4); Platelet Count 371 thou/uL (130-400); RBC Distribution Width 14.8 % (11.5-14.5); Red Blood Cell (RBC) Count 2.71 mill/uL (4.20-5.40); White Blood Cell (WBC) Count 15.2 thou/uL (4.8-10.8)
[2020-05-14 04:34] LABS: Anion Gap 20 mmol/L (10-20); BUN (Urea Nitrogen) 95 mg/dL (9.8-20.1); Calc. Creatinine Clearance 22 mL/min (70-130); Calcium 7.9 mg/dL (7.8-10.44); Carbon Dioxide 18 mmol/L (23-31); Chloride 105 mmol/L (98-107); Glucose 171 mg/dL (80-115); Sodium 139 mmol/L (136-145)
[2020-05-14] MEDS: Insulin Regular 300 UNITS/3 ML VIAL SC PRN ×2 (04:37→15:21)
[2020-05-14] MEDS: Sodium Chloride 0.9% 1,000 ML IV SCH ×2 (05:43→15:30)
--- NOTE | 2020-05-14 07:18 | PDOC.HOSPP ---
- Subjective Encounter Date: 05/13/20 Encounter Time: 10:30 Subjective: pt was intubated last night. pt was seen by pulmonary will not see pt today. - Objective Vital Signs & Weight: Vital Signs (12 hours) Temp Pulse Resp BP Pulse Ox 05/14/20 06:00 16 05/14/20 04:00 19 05/14/20 03:00 97.5 F L 05/14/20 02:17 53 L 120/59 L 05/14/20 02:00 16 05/14/20 00:00 16 05/13/20 23:00 98.2 F 05/13/20 22:32 55 L 106/57 L 05/13/20 22:00 16 05/13/20 20:12 55 L 122/61 05/13/20 20:00 16 05/13/20 19:44 100 Weight Admit Weight 186 lb 4.8 oz Weight 197 lb 1.492 oz Most Recent Monitor Data Heart Rate from ECG 53 NIBP 132/65 NIBP BP-Mean 87 Respiration from ECG 16 SpO2 99 I&O: 05/13/20 05/14/20 05/15/20 06:59 06:59 06:59 Intake Total 1507.3 2514 Output Total 850 587 Balance 657.3 1927 Result Diagrams: 05/14/20 03:06 05/14/20 03:06 Additional Labs: Accuchecks 05/13/20 05/13/20 05/13/20 20:28 16:03 09:23 POC Glucose 231 H 281 H 276 H Hospitalist ROS - Review of Systems Other: intubated - Medication Medications: Active Medications Generic Name Dose Route Start Last Admin Trade Name Freq PRN Reason Stop Dose Admin Acetaminophen 650 mg 05/05/20 03:50 05/05/20 04:19 Acetaminophen 325 Mg Tab PO 650 mg Q4H PRN Administration Mild Pain Albuterol Sulfate 2 puff 05/05/20 03:59 05/05/20 07:40 Albuterol 200 Puff (6.7gm Inhaler) INH 2 puff [id number] PRN Administration Wheezing Alprazolam 0.5 mg 05/02/20 21:00 05/13/20 19:52 Alprazolam 0.5 Mg Tab PO Not Given BID ESTER Ascorbic Acid 1,000 mg 05/02/20 09:00 05/13/20 08:56 Ascorbic Acid 500 Mg Chewable Tablet PO 1,000 mg DAILY ESTER Administration Atorvastatin Calcium 20 mg 05/09/20 09:00 05/13/20 08:57 Atorvastatin Calcium 20 Mg Tab PO 20 mg DAILY ESTER Administration Carvedilol 3.125 mg 05/06/20 17:00 05/13/20 17:07 Carvedilol 3.125 Mg Tab PO 3.125 mg BID- ESTER Administration Cholecalciferol 400 units 05/02/20 09:00 05/13/20 09:10 Cholecalciferol (Vitamin D3) 400 Units Tab PO 400 units DAILY ESTER Administration Dexamethasone 6 mg 05/09/20 21:00 05/13/20 20:11 Dexamethasone 4 Mg/Ml Vial SLOW IVP 6 mg Q12HR ESTER Administration Famotidine 20 mg 05/09/20 21:00 05/13/20 20:12 Famotidine/Pf 20 Mg/2ml Vial SLOW IVP 20 mg BID ESTER Administration Folic Acid 1 mg 05/03/20 09:00 05/13/20 08:57 Folic Acid 1 Mg Tab PO 1 mg DAILY ESTER Administration Heparin Sodium (Porcine) 5,000 units 05/02/20 09:00 05/13/20 20:12 Heparin 5,000 Units/Ml Vial SC 5,000 units TID ESTER Administration Hydralazine HCl 75 mg 05/08/20 09:00 05/13/20 20:12 Hydralazine 25 Mg Tab PO 75 mg TID ESTER Administration Doxycycline Hyclate 100 mg/ 100 mls @ 100 mls/hr 05/09/20 21:00 05/13/20 20:12 Sodium Chloride IVPB 05/19/20 21:01 100 mls Q12HR ESTER Administration Insulin Glargine 5 units/ 0.05 mls @ 0 mls/hr 05/13/20 09:00 05/13/20 08:56 Miscellaneous Medication SC Not Given QAM ESTER Fentanyl Citrate 2,000 mcg/ 100 mls @ 0 mls/hr 05/12/20 21:30 05/13/20 20:46 Sodium Chloride IV 06/11/20 21:30 100 mls INF ESTER Administration Protocol Per Protocol Cefepime HCl 1 gm/ Sodium 100 mls @ 200 mls/hr 05/13/20 10:00 05/13/20 21:22 Chloride IVPB 100 mls 1000,2200 ESTER Administration Sodium Chloride 1,000 mls @ 100 mls/hr 05/13/20 09:30 05/14/20 05:43 Normal Saline 0.9% IV 1,000 mls .Q10H ESTER Administration Insulin Human Regular 0 units 05/13/20 09:28 05/14/20 04:37 Insulin Regular 300 Units/3 Ml Vial SC 2 unit .MODERATE SLIDING SC PRN Administration Moderate Correctional Scale Lorazepam 0.5 mg 05/12/20 19:07 05/12/20 19:24 Lorazepam 2 Mg/Ml Vial SLOW IVP 0.5 mg BIDPRN PRN Administration .ANXIETY Magnesium Citrate 300 ml 05/02/20 19:40 05/04/20 08:13 Magnesium Citrate 300 Ml Bot PO 300 ml DAILYPRN PRN Administration Constipation Mometasone Furoate/Formoterol Fumar 2 puff 05/09/20 18:30 05/13/20 22:32 Mometasone 200 Mcg/Formoterol 5 Mcg 120 Puff Inhaler INH 2 puff BID-RT ESTER Administration Nifedipine 60 mg 05/06/20 09:00 05/13/20 08:56 Nifedipine Xl 60 Mg Tab PO 60 mg DAILY ESTER Administration Ondansetron HCl 4 mg 05/03/20 17:50 05/09/20 20:49 Ondansetron Pf 4 Mg/2 Ml Vial IVP 4 mg Q6H PRN Administration Nausea/Vomiting Ondansetron HCl 4 mg 05/08/20 01:15 05/08/20 14:20 Ondansetron Odt 4 Mg Tab PO 4 mg Q6H PRN Administration Nausea/Vomiting Propofol 1,000 mg 05/12/20 21:30 05/14/20 05:43 Propofol 1,000 Mg/100 Ml Vial IV 06/11/20 21:30 1,000 mg INF PRN Administration TO ACHIEVE GOAL RASS Protocol Senna 2 tab 05/08/20 21:00 05/13/20 20:13 Senokot 8.6 Mg Tab PO 2 tab BID ESTER Administration Tramadol HCl 100 mg 05/04/20 21:00 05/13/20 19:52 Tramadol Hcl 50 Mg Tab PO Not Given HS ESTER Zolpidem Tartrate 10 mg 05/02/20 19:39 05/11/20 21:08 Zolpidem Tartrate 5 Mg Tab PO 10 mg HSPRN PRN Administration Insomnia - Exam Neck: negative: supple, symmetric, no JVD, no thyromegaly, no lymphadenopathy, no carotid bruit, JVD Heart: negative: RRR, no murmur, no gallops, no rubs, normal peripheral pulses, irregular, diminshed peripheral pulses, murmur present, II/IV, III/IV Respiratory: negative: CTAB, no wheezes, no rales, no ronchi, normal chest expansion, no tachypnea, normal percussion, rales, rhonchi, tachypneic, wheezes Hosp A/P - Plan (1) Pneumonia due to COVID-19 virus Code(s): U07.1 - COVID-19; J12.89 - OTHER VIRAL PNEUMONIA Status: Acute (2) Acute kidney injury superimposed on CKD Code(s): N17.9 - ACUTE KIDNEY FAILURE, UNSPECIFIED; N18.9 - CHRONIC KIDNEY DISEASE, UNSPECIFIED Status: Acute (3) Acute respiratory failure with hypoxia Code(s): J96.01 - ACUTE RESPIRATORY FAILURE WITH HYPOXIA Status: Acute (4) HTN (hypertension) Code(s): I10 - ESSENTIAL (PRIMARY) HYPERTENSION Status: Chronic Qualifiers: Hypertension type: essential hypertension Qualified Code(s): I10 - Essential (primary) hypertension (5) Dyslipidemia Code(s): E78.5 - HYPERLIPIDEMIA, UNSPECIFIED Status: Chronic (6) Peripheral neuropathy Code(s): G62.9 - POLYNEUROPATHY, UNSPECIFIED Status: Chronic Qualifiers: Peripheral neuropathy type: polyneuropathy, unspecified Qualified Code(s): G62.9 - Polyneuropathy, unspecified (7) Anemia of renal disease Code(s): D63.1 - ANEMIA IN CHRONIC KIDNEY DISEASE Status: Chronic (8) Metabolic acidosis Code(s): E87.2 - ACIDOSIS Status: Resolved - Plan is on high flow, continue dexamethasone. 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 on coreg and hydralazine, she also takes ambien chronically for insomnia at 10mg progressive worsening of renal function due to poor oral intake and likely contribution from covid, Creatinine around 2.5 at baseline is at high risk for complications with multiple comorbid conditions will need rehab/swing bed for dc plan, agrees to go to [facility] swing bed. off clonidine and is on lower dose coreg due to bradycardia with rates dipping into 40's which has resolved now. encourage po intake, is not eating much despite changing to regular diet patient has consented to talk to her daughter, d/w and gave full updates and guarded prognosis 05/10, 05/2020. 05/12 patient appeared little bit more confused today ABG indicated significant hypoxia. Her high flow was titrated accordingly per respiratory therapy. Patient continues not to eat very much. Patient encouraged to eat or drink supplements. Chest x-ray indicated worsening pneumonia. Worsening creatinine. We will hold all nephrotoxins. We will continue doxycycline and stop ceftriaxone. Patient started on a bicarb drip per nephrology. 05/13 pt was intubated on the night of 05/12. will continue current treatment. pt on steroids and abx. DVt ppx
[2020-05-14 07:45] LABS: Actual Bicarbonate (HCO3a) 18.2 mEq/L (22-28); Base Excess (BEa) -5.5 mEq/L (-2.0 to +3.0); CO2 Tension 28.4 mmHg (35.0-45.0); Calcium, Ionized (arterial) 1.07 mmol/L (1.12-1.30); Carboxyhemoglobin (COHb) 0.8 gm% (0.0-3.0); Hemoglobin (Hb) 7.7 g/dL (12.0-16.0); O2 Tension (PaO2), arterial 73.1 mmHg (> 80.0); Potassium - ABG Lab 4.09 mmol/L (3.70-5.30); pH, Arterial 7.42 (7.35-7.45)
[2020-05-14 07:56] LABS: Puncture Site RRA
[2020-05-14] MEDS: Senokot 8.6 MG TAB PO SCH ×2 (08:17→20:28)
[2020-05-14] MEDS: Ascorbic Acid 500 mg Chewable Tablet PO SCH (08:17)
[2020-05-14] MEDS: NIFEdipine XL 60 MG TAB PO SCH (08:18)
[2020-05-14] MEDS: Atorvastatin Calcium 20 MG TAB PO SCH (08:18)
[2020-05-14] MEDS: hydrALAZINE 25 MG TAB PO SCH ×3 (08:18→20:25)
[2020-05-14] MEDS: Folic Acid 1 MG TAB PO SCH (08:19)
[2020-05-14] MEDS: Carvedilol 3.125 MG TAB PO SCH ×2 (08:19→16:34)
[2020-05-14] MEDS: ALPRAZolam 0.5 MG TAB PO SCH ×2 (08:20→20:29)
[2020-05-14] MEDS: Cholecalciferol (Vitamin D3) 400 UNITS TAB PO SCH (08:20)
[2020-05-14] MEDS: Famotidine/PF 20 mg/2ml Vial SLOW IVP SCH (08:22)
[2020-05-14] MEDS: Heparin 5,000 UNITS/ML VIAL SC SCH ×3 (08:22→20:27)
[2020-05-14] MEDS: Dexamethasone 4 mg/ml Vial SLOW IVP SCH ×2 (08:22→20:25)
[2020-05-14] MEDS: Cefepime 1 GM in Sodium Chloride 0.9% 100 ML IVPB SCH (08:23)
[2020-05-14] MEDS: Mometasone 200 MCG/Formoterol 5 MCG 120 PUFF INHALER INH SCH ×2 (08:28→19:36)
--- NOTE | 2020-05-14 09:03 | RAD ---
PORTABLE CHEST: HISTORY: CCU followup on ventilator. Pneumonia. COMPARISON: 05/13/2020. FINDINGS: ET tube and NG tube remain in place. Bilateral lung infiltrates again seen, not significantly change d. IMPRESSION: Stable chest. POS: AGW
[2020-05-14] MEDS: Insulin Glargine 5 UNITS in Pre-Filled Syringe SC SCH (09:05)
--- NOTE | 2020-05-14 10:18 | PRG ---
DATE OF SERVICE: 05/14/2020 SUBJECTIVE: Genia Reed is a 70-year-old female, who is intubated for progressive respiratory failure. She has been in the hospital here for a prolonged period of time, day #12. Otherwise, x-ray shows diffuse infiltrates, though somewhat better. OBJECTIVE: VITAL SIGNS: Temperature 97, blood pressure 120/59, respiratory rate 18. CHEST: No wheezing. No crackles. CARDIAC: Normal S1, S2. No gallops. ABDOMEN: No masses. LABORATORY DATA: PO2 is 73, on a bilevel, rate of 16, 40%, low PEEP of 10. Lytes are normal. BUN and creatinine are somewhat better at 95 and 3.4. H and H are low at 7 and 22. IMPRESSION: 1. Respiratory failure. 2. Hoskins positive pneumonia. 3. Azotemia, appears to be prerenal. PLAN: Continue antibiotics. Continue high-dose steroids. Vent is being adjusted. One-half hour of critical care time. Job ID: [id number]
--- NOTE | 2020-05-14 11:52 | PRG ---
DATE OF SERVICE: 05/14/2020 SUBJECTIVE: The patient is on COVID isolation, remains intubated. Talked with the bedside nurse and also with the son over the phone. OBJECTIVE: GENERAL: Well-built female, intubated. VITAL SIGNS: Temperature 97.5, pulse 55, respiratory rate 14, blood pressure 122/61. LABORATORY DATA: Potassium 4.0, BUN is 95, creatinine is 3.4. ASSESSMENT AND PLAN: 1. Acute kidney injury on chronic kidney disease, stage 4. Renal function is stable. The patient is not making much urine. Agree with IV fluids for now with cautious monitoring of cardiorespiratory status, currently intubated. 2. Acute hypoxic respiratory failure secondary to COVID pneumonia. 3. COVID-19 pneumonia. 4. Edema. 5. Hypertension. 6. Anemia of chronic disease. Agree with hydration. Monitor urine output. If no significant improvement, might need renal replacement. I did discuss the plan with the son over the phone. We will continue her on close monitoring. Job ID: [id number]
--- NOTE | 2020-05-14 14:38 | PDOC.HOSPP ---
- Subjective Encounter Date: 05/14/20 Encounter Time: 10:30 Subjective: pt intubated, - Objective Vital Signs & Weight: Vital Signs (12 hours) Temp Pulse Resp BP Pulse Ox 05/14/20 13:14 18 05/14/20 10:45 55 L 133/87 05/14/20 08:18 53 L 120/59 L 05/14/20 07:45 14 100 05/14/20 06:00 16 05/14/20 04:00 19 05/14/20 03:00 97.5 F L Weight Admit Weight 186 lb 4.8 oz Weight 197 lb 1.492 oz Most Recent Monitor Data Heart Rate from ECG 57 NIBP 136/62 NIBP BP-Mean 86 Respiration from ECG 15 SpO2 100 I&O: 05/13/20 05/14/20 05/15/20 06:59 06:59 06:59 Intake Total 1507.3 2514 540 Output Total 850 587 170 Balance 657.3 1927 370 Result Diagrams: 05/14/20 03:06 05/14/20 03:06 Additional Labs: Accuchecks 05/14/20 05/13/20 05/13/20 09:23 20:28 16:03 POC Glucose 157 H 231 H 281 H Hospitalist ROS - Medication Medications: Active Medications Generic Name Dose Route Start Last Admin Trade Name Freq PRN Reason Stop Dose Admin Acetaminophen 650 mg 05/05/20 03:50 05/05/20 04:19 Acetaminophen 325 Mg Tab PO 650 mg Q4H PRN Administration Mild Pain Albuterol Sulfate 2 puff 05/05/20 03:59 05/05/20 07:40 Albuterol 200 Puff (6.7gm Inhaler) INH 2 puff [id number] PRN Administration Wheezing Alprazolam 0.5 mg 05/02/20 21:00 05/14/20 08:20 Alprazolam 0.5 Mg Tab PO 0.5 mg BID ESTER Administration Ascorbic Acid 1,000 mg 05/02/20 09:00 05/14/20 08:17 Ascorbic Acid 500 Mg Chewable Tablet PO 1,000 mg DAILY ESTER Administration Atorvastatin Calcium 20 mg 05/09/20 09:00 05/14/20 08:18 Atorvastatin Calcium 20 Mg Tab PO 20 mg DAILY ESTER Administration Carvedilol 3.125 mg 05/06/20 17:00 05/14/20 08:19 Carvedilol 3.125 Mg Tab PO 3.125 mg BID-WM ESTER Administration Cholecalciferol 400 units 05/02/20 09:00 05/14/20 08:20 Cholecalciferol (Vitamin D3) 400 Units Tab PO Not Given DAILY ESTER Dexamethasone 6 mg 05/09/20 21:00 05/14/20 08:22 Dexamethasone 4 Mg/Ml Vial SLOW IVP 6 mg Q12HR ESTER Administration Folic Acid 1 mg 05/03/20 09:00 05/14/20 08:19 Folic Acid 1 Mg Tab PO 1 mg DAILY ESTER Administration Heparin Sodium (Porcine) 5,000 units 05/02/20 09:00 05/14/20 08:22 Heparin 5,000 Units/Ml Vial SC 5,000 units TID ESTER Administration Hydralazine HCl 75 mg 05/08/20 09:00 05/14/20 08:18 Hydralazine 25 Mg Tab PO 75 mg TID ESTER Administration Doxycycline Hyclate 100 mg/ 100 mls @ 100 mls/hr 05/09/20 21:00 05/14/20 09:05 Sodium Chloride IVPB 05/19/20 21:01 100 mls Q12HR ESTER Administration Insulin Glargine 5 units/ 0.05 mls @ 0 mls/hr 05/13/20 09:00 05/14/20 09:05 Miscellaneous Medication SC 0.05 mls QAM ESTER Administration Fentanyl Citrate 2,000 mcg/ 100 mls @ 0 mls/hr 05/12/20 21:30 05/13/20 20:46 Sodium Chloride IV 06/11/20 21:30 100 mls INF ESTER Administration Protocol Per Protocol Sodium Chloride 1,000 mls @ 100 mls/hr 05/13/20 09:30 05/14/20 05:43 Normal Saline 0.9% IV 1,000 mls .Q10H ESTER Administration Insulin Human Regular 0 units 05/13/20 09:28 05/14/20 04:37 Insulin Regular 300 Units/3 Ml Vial SC 2 unit .MODERATE SLIDING SC PRN Administration Moderate Correctional Scale Lorazepam 0.5 mg 05/12/20 19:07 05/12/20 19:24 Lorazepam 2 Mg/Ml Vial SLOW IVP 0.5 mg BIDPRN PRN Administration .ANXIETY Magnesium Citrate 300 ml 05/02/20 19:40 05/04/20 08:13 Magnesium Citrate 300 Ml Bot PO 300 ml DAILYPRN PRN Administration Constipation Mometasone Furoate/Formoterol Fumar 2 puff 05/09/20 18:30 05/14/20 08:28 Mometasone 200 Mcg/Formoterol 5 Mcg 120 Puff Inhaler INH 2 puff BID-RT ESTER Administration Ondansetron HCl 4 mg 05/03/20 17:50 05/09/20 20:49 Ondansetron Pf 4 Mg/2 Ml Vial IVP 4 mg Q6H PRN Administration Nausea/Vomiting Ondansetron HCl 4 mg 05/08/20 01:15 05/08/20 14:20 Ondansetron Odt 4 Mg Tab PO 4 mg Q6H PRN Administration Nausea/Vomiting Propofol 1,000 mg 05/12/20 21:30 05/14/20 05:43 Propofol 1,000 Mg/100 Ml Vial IV 06/11/20 21:30 1,000 mg INF PRN Administration TO ACHIEVE GOAL RASS Protocol Senna 2 tab 05/08/20 21:00 05/14/20 08:17 Senokot 8.6 Mg Tab PO 2 tab BID ESTER Administration Tramadol HCl 100 mg 05/04/20 21:00 05/13/20 19:52 Tramadol Hcl 50 Mg Tab PO Not Given HS ESTER Zolpidem Tartrate 10 mg 05/02/20 19:39 05/11/20 21:08 Zolpidem Tartrate 5 Mg Tab PO 10 mg HSPRN PRN Administration Insomnia Hosp A/P - Plan (1) Pneumonia due to COVID-19 virus Code(s): U07.1 - COVID-19; J12.89 - OTHER VIRAL PNEUMONIA Status: Acute (2) Acute kidney injury superimposed on CKD Code(s): N17.9 - ACUTE KIDNEY FAILURE, UNSPECIFIED; N18.9 - CHRONIC KIDNEY DISEASE, UNSPECIFIED Status: Acute (3) Acute respiratory failure with hypoxia Code(s): J96.01 - ACUTE RESPIRATORY FAILURE WITH HYPOXIA Status: Acute (4) HTN (hypertension) Code(s): I10 - ESSENTIAL (PRIMARY) HYPERTENSION Status: Chronic Qualifiers: Hypertension type: essential hypertension Qualified Code(s): I10 - Essential (primary) hypertension (5) Dyslipidemia Code(s): E78.5 - HYPERLIPIDEMIA, UNSPECIFIED Status: Chronic (6) Peripheral neuropathy Code(s): G62.9 - POLYNEUROPATHY, UNSPECIFIED Status: Chronic Qualifiers: Peripheral neuropathy type: polyneuropathy, unspecified Qualified Code(s): G62.9 - Polyneuropathy, unspecified (7) Anemia of renal disease Code(s): D63.1 - ANEMIA IN CHRONIC KIDNEY DISEASE Status: Chronic (8) Metabolic acidosis Code(s): E87.2 - ACIDOSIS Status: Resolved - Plan is on high flow, continue dexamethasone. 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 on coreg and hydralazine, she also takes ambien chronically for insomnia at 10mg progressive worsening of renal function due to poor oral intake and likely contribution from covid, Creatinine around 2.5 at baseline is at high risk for complications with multiple comorbid conditions will need rehab/swing bed for dc plan, agrees to go to [facility] swing bed. off clonidine and is on lower dose coreg due to bradycardia with rates dipping into 40's which has resolved now. encourage po intake, is not eating much despite changing to regular diet patient has consented to talk to her daughter, d/w and gave full updates and guarded prognosis 05/10, 05/2020. 05/12 patient appeared little bit more confused today ABG indicated significant hypoxia. Her high flow was titrated accordingly per respiratory therapy. Patient continues not to eat very much. Patient encouraged to eat or drink supplements. Chest x-ray indicated worsening pneumonia. Worsening creatinine. We will hold all nephrotoxins. We will continue doxycycline and stop ceftri axone. Patient started on a bicarb drip per nephrology. 05/13 pt was intubated on the night of 05/12. will continue current treatment. pt on steroids and abx. DVt ppx. H&H is low normal will continue to monitor 05/14 patient's urine output continues to decrease her creatinine continues to worsen. Patient may require dialysis. Patient's family called left message. Continue steroids for now. Patient received albumin.
[2020-05-14] MEDS: Lorazepam 2 MG/ML VIAL SLOW IVP PRN (15:32)
[2020-05-14] MEDS: traMADol HCl 50 MG TAB PO SCH (20:29)
[2020-05-15] MEDS: Propofol 1,000 MG/100 ML VIAL IV PRN ×4 (02:44→22:29)
[2020-05-15] MEDS: Lorazepam 2 MG/ML VIAL SLOW IVP PRN ×4 (04:10→12:06)
[2020-05-15] MEDS: Insulin Regular 300 UNITS/3 ML VIAL SC PRN (04:11)
[2020-05-15] MEDS: Sodium Chloride 0.9% 1,000 ML IV SCH ×2 (04:11→09:13)
[2020-05-15 05:18] LABS: Anion Gap 19 mmol/L (10-20); BUN (Urea Nitrogen) 108 mg/dL (9.8-20.1); Calc. Creatinine Clearance 20 mL/min (70-130); Calcium 7.4 mg/dL (7.8-10.44); Carbon Dioxide 17 mmol/L (23-31); Chloride 106 mmol/L (98-107); Glucose 195 mg/dL (80-115); Potassium 4.4 mmol/L (3.5-5.1); Sodium 138 mmol/L (136-145)
[2020-05-15 05:52] LABS: Band 2 % (5-11); Burr Cells SLIGHT = 2-5 cells (100X) (0-1/hpf); Elliptocytes SLIGHT = 2-5 cells (100X) (0-1/hpf); Hemoglobin 7.3 g/dL (12.0-16.0); MDiff Complete? YES; Mean Corpuscular HGB CONC 32.3 g/dL (32.0-36.0); Mean Corpuscular Volume 86.5 fL (78.0-98.0); Mean Platelet Volume 8.3 fL (7.4-10.4); Monocytes 4 % (0-10); Myelocyte 1 % (0-0); Neutrophil 93 % (42-75); Nucleated RBC 2 % (0); Platelet Count 355 thou/uL (130-400); RBC Distribution Width 15.2 % (11.5-14.5); Schistocytes SLIGHT = 2-5 cells (100X) (0-1/hpf); White Blood Cell (WBC) Count 18.3 thou/uL (4.8-10.8)
[2020-05-15] MEDS: fentaNYL Citrate/PF 2,000 MCG in Sodium Chloride 0.9% 60 ML IV SCH (06:33)
[2020-05-15] MEDS: Ascorbic Acid 500 mg Chewable Tablet PO SCH (07:44)
[2020-05-15] MEDS: Atorvastatin Calcium 20 MG TAB PO SCH (07:45)
[2020-05-15] MEDS: Carvedilol 3.125 MG TAB PO SCH ×2 (07:45→14:04)
[2020-05-15] MEDS: hydrALAZINE 25 MG TAB PO SCH ×3 (07:45→23:49)
[2020-05-15] MEDS: ALPRAZolam 0.5 MG TAB PO SCH ×2 (07:45→21:52)
[2020-05-15] MEDS: Senokot 8.6 MG TAB PO SCH ×2 (07:45→21:52)
[2020-05-15] MEDS: Heparin 5,000 UNITS/ML VIAL SC SCH ×3 (07:46→21:51)
[2020-05-15] MEDS: Amlodipine 10 MG TAB PER TUBE SCH (07:46)
[2020-05-15] MEDS: Famotidine/PF 20 mg/2ml Vial SLOW IVP SCH (07:46)
[2020-05-15] MEDS: Folic Acid 1 MG TAB PO SCH (07:46)
[2020-05-15] MEDS: Dexamethasone 4 mg/ml Vial SLOW IVP SCH (07:46)
[2020-05-15] MEDS: Cholecalciferol (Vitamin D3) 400 UNITS TAB PO SCH (07:49)
[2020-05-15 07:56] LABS: Actual Bicarbonate (HCO3a) 15.4 mEq/L (22-28); Base Excess (BEa) -8.5 mEq/L (-2.0 to +3.0); CO2 Tension 26.2 mmHg (35.0-45.0); Calcium, Ionized (arterial) 1.05 mmol/L (1.12-1.30); Carboxyhemoglobin (COHb) 0.8 gm% (0.0-3.0); Hemoglobin (Hb) 8.3 g/dL (12.0-16.0); Potassium - ABG Lab 4.08 mmol/L (3.70-5.30); pH, Arterial 7.39 (7.35-7.45)
[2020-05-15 07:57] LABS: O2 Tension (PaO2), arterial 56.9 mmHg (> 80.0); Puncture Site RRA
[2020-05-15] MEDS: Mometasone 200 MCG/Formoterol 5 MCG 120 PUFF INHALER INH SCH ×2 (08:15→20:18)
--- NOTE | 2020-05-15 08:25 | RAD ---
PORTABLE CHEST: HISTORY: CCU followup on ventilator. COMPARISON: 05/14/2020. FINDINGS: There are patchy hazy bilateral infiltrates which do not appear significantly changed. The ET tube a nd NG tube remain in position. IMPRESSION: Stable bilateral infiltrates. POS: AGW
[2020-05-15] MEDS: Cefepime 1 GM in Sodium Chloride 0.9% 100 ML IVPB SCH (08:50)
[2020-05-15] MEDS: Insulin Glargine 5 UNITS in Pre-Filled Syringe SC SCH (08:52)
--- NOTE | 2020-05-15 09:59 | PRG ---
DATE OF SERVICE: 05/15/2020 SUBJECTIVE: Genia Reed remains intubated in the ICU. OBJECTIVE: VITAL SIGNS: Temperature is 96.8, pulse 61, blood pressure , respirations 20. I's and O's even. CHEST: No wheezing. No crackles. CARDIAC: Normal S1, S2. No gallops. ABDOMEN: No masses. LABORATORY DATA: White blood count 18,000, H and H of 7 and 21. PO2 is 56, pCO2 is 26, pH 7.39. Creatinine is 3, BUN is 108. IMPRESSION: 1. Slightly worsening renal function. 2. Hoskins positive pneumonia. 3. Respiratory failure. PLAN: Not weanable. Prognosis is guarded. We are going to continue supportive care. Antibiotics being adjusted for renal failure. High-dose steroids. One-half hour of critical care time. Job ID: [id number]
[2020-05-15] MEDS: methylPREDNISolone Sod Succ 40 MG VIAL IVP SCH ×3 (10:19→23:56)
--- NOTE | 2020-05-15 11:09 | PRG ---
DATE OF SERVICE: 05/15/2020 SUBJECTIVE: The patient is on COVID isolation, remains intubated. OBJECTIVE: GENERAL: The patient is intubated. VITAL SIGNS: Temperature 99.1, pulse 61, respiratory rate 20, blood pressure 147/65. HEENT: Intubated. CV: S1 and S2 heard. RESPIRATORY: Clear. NEUROLOGICAL: Intubated. LABORATORY DATA: Potassium 4.4, BUN is 108, creatinine is 3.71. ASSESSMENT AND PLAN: 1. Acute kidney injury on chronic kidney disease stage 4. Worsening labs with no significant urine output. I did talk to the son, Jimenez, and he is agreeable for dialysis. We will consult Surgery. We will have dialysis plan as ordered. 2. Acute hypoxic respiratory failure. 3. COVID-19 pneumonia. 4. Edema. 5. Hypertension. 6. Anemia of chronic disease. Plan is to start on dialysis. We will arrange for dialysis catheter placement. Job ID: [id number]
[2020-05-15] MEDS ORDERED: Heparin 10,000 UNITS/ 10 ML VIAL ONE (11:32)
[2020-05-15 12:02] LABS: HBSAB Concentration Less than 8.00 mIU/mL; HBSAg Index 0.14 S/CO (0-0.99); Hep B Core Total Ab Non-Reactive (NonReactive); Hep B Core Total Index 0.08 S/CO (0-0.79); Hep B Surf AB Non-Reactive (NonReactive); Hep B Surf Ag Non-Reactive S/CO (NonReactive); Hep C IgG Ab Non-Reactive (NonReactive); Hep C Index 0.07 S/CO (0-0.79)
--- NOTE | 2020-05-15 17:36 | PDOC.HOSPP ---
- Subjective Encounter Date: 05/15/20 Encounter Time: 11:30 Subjective: Patient continues to be intubated. Did not examine the patient today. - Objective Vital Signs & Weight: Vital Signs (12 hours) Temp Pulse Resp BP Pulse Ox 05/15/20 16:33 55 L 141/64 H 05/15/20 15:37 99.7 F H 05/15/20 15:00 99.7 F H 05/15/20 14:04 63 154/67 H 05/15/20 13:21 63 154/67 H 05/15/20 09:43 99.1 F 05/15/20 08:05 61 149/69 H 05/15/20 07:46 65 05/15/20 07:45 65 05/15/20 07:25 16 97 05/15/20 05:58 12 Weight Admit Weight 186 lb 4.8 oz Weight 197 lb 1.492 oz Most Recent Monitor Data Heart Rate from ECG 58 NIBP 141/64 NIBP BP-Mean 89 Respiration from ECG 15 SpO2 99 I&O: 05/14/20 05/15/20 05/16/20 06:59 06:59 06:59 Intake Total 2514 2690 460 Output Total 587 405 205 Balance 1927 2285 255 Result Diagrams: 05/15/20 03:15 05/15/20 03:15 Additional Labs: Accuchecks 05/15/20 05/15/20 05/14/20 15:19 03:22 20:39 POC Glucose 181 H 171 H 149 H Hospitalist ROS - Review of Systems Other: Intubated - Medication Medications: Active Medications Generic Name Dose Route Start Last Admin Trade Name Zandra PRN Reason Stop Dose Admin Acetaminophen 650 mg 05/05/20 03:50 05/05/20 04:19 Acetaminophen 325 Mg Tab PO 650 mg Q4H PRN Administration Mild Pain Albuterol Sulfate 2 puff 05/05/20 03:59 05/05/20 07:40 Albuterol 200 Puff (6.7gm Inhaler) INH 2 puff [id number] PRN Administration Wheezing Alprazolam 0.5 mg 05/02/20 21:00 05/15/20 07:45 Alprazolam 0.5 Mg Tab PO 0.5 mg BID ESTER Administration Amlodipine Besylate 10 mg 05/15/20 09:00 05/15/20 07:46 Amlodipine 10 Mg Tab PER TUBE 10 mg DAILY ESTER Administration Ascorbic Acid 1,000 mg 05/02/20 09:00 05/15/20 07:44 Ascorbic Acid 500 Mg Chewable Tablet PO 1,000 mg DAILY ESTER Administration Atorvastatin Calcium 20 mg 05/09/20 09:00 05/15/20 07:45 Atorvastatin Calcium 20 Mg Tab PO 20 mg DAILY ESTER Administration Carvedilol 3.125 mg 05/06/20 17:00 05/15/20 14:04 Carvedilol 3.125 Mg Tab PO 3.125 mg BID-WM ESTER Administration Cholecalciferol 400 units 05/02/20 09:00 05/15/20 07:49 Cholecalciferol (Vitamin D3) 400 Units Tab PO 400 units DAILY ESTER Administration Famotidine 20 mg 05/15/20 09:00 05/15/20 07:46 Famotidine/Pf 20 Mg/2ml Vial SLOW IVP 20 mg DAILY ESTER Administration Folic Acid 1 mg 05/03/20 09:00 05/15/20 07:46 Folic Acid 1 Mg Tab PO 1 mg DAILY ESTER Administration Heparin Sodium (Porcine) 5,000 units 05/02/20 09:00 05/15/20 14:05 Heparin 5,000 Units/Ml Vial SC 5,000 units TID ESTER Administration Hydralazine HCl 75 mg 05/08/20 09:00 05/15/20 14:04 Hydralazine 25 Mg Tab PO 75 mg TID ESTER Administration Doxycycline Hyclate 100 mg/ 100 mls @ 100 mls/hr 05/09/20 21:00 05/15/20 09:12 Sodium Chloride IVPB 05/19/20 21:01 100 mls Q12HR ESTER Administration Insulin Glargine 5 units/ 0.05 mls @ 0 mls/hr 05/13/20 09:00 05/15/20 08:52 Miscellaneous Medication SC Not Given QAM ESTER Fentanyl Citrate 2,000 mcg/ 100 mls @ 0 mls/hr 05/12/20 21:30 05/15/20 06:33 Sodium Chloride IV 06/11/20 21:30 100 mls INF ESTER Administration Protocol Per Protocol Sodium Chloride 1,000 mls @ 100 mls/hr 05/13/20 09:30 05/15/20 09:13 Normal Saline 0.9% IV 1,000 mls .Q10H ESTER Administration Cefepime HCl 1 gm/ Sodium 100 mls @ 200 mls/hr 05/15/20 10:00 05/15/20 08:50 Chloride IVPB 100 mls 1000 ESTER Administration Insulin Human Regular 0 units 05/13/20 09:28 05/15/20 04:11 Insulin Regular 300 Units/3 Ml Vial SC 2 unit .MODERATE SLIDING SC PRN Administration Moderate Correctional Scale Lorazepam 0.5 mg 05/12/20 19:07 05/12/20 19:24 Lorazepam 2 Mg/Ml Vial SLOW IVP 0.5 mg BIDPRN PRN Administration .ANXIETY Lorazepam 2 mg 05/12/20 21:30 05/15/20 12:06 Lorazepam 2 Mg/Ml Vial SLOW IVP 06/11/20 21:30 2 mg Q1H PRN Administration Breakthrough agitation Magnesium Citrate 300 ml 05/02/20 19:40 05/04/20 08:13 Magnesium Citrate 300 Ml Bot PO 300 ml DAILYPRN PRN Administration Constipation Methylprednisolone Sodium Succinate 40 mg 05/15/20 12:00 05/15/20 17:21 Methylprednisolone Sod Succ 40 Mg Vial IVP 40 mg Q6HR ESTER Administration Mometasone Furoate/Formoterol Fumar 2 puff 05/09/20 18:30 05/15/20 08:15 Mometasone 200 Mcg/Formoterol 5 Mcg 120 Puff Inhaler INH 2 puff BID-RT ESTER Administration Ondansetron HCl 4 mg 05/03/20 17:50 05/09/20 20:49 Ondansetron Pf 4 Mg/2 Ml Vial IVP 4 mg Q6H PRN Administration Nausea/Vomiting Ondansetron HCl 4 mg 05/08/20 01:15 05/08/20 14:20 Ondansetron Odt 4 Mg Tab PO 4 mg Q6H PRN Administration Nausea/Vomiting Propofol 1,000 mg 05/12/20 21:30 05/15/20 14:05 Propofol 1,000 Mg/100 Ml Vial IV 06/11/20 21:30 1,000 mg INF PRN Administration TO ACHIEVE GOAL RASS Protocol Senna 2 tab 05/08/20 21:00 05/15/20 07:45 Senokot 8.6 Mg Tab PO 2 tab BID ESTER Administration Zolpidem Tartrate 10 mg 05/02/20 19:39 05/11/20 21:08 Zolpidem Tartrate 5 Mg Tab PO 10 mg HSPRN PRN Administration Insomnia Hosp A/P - Plan (1) Pneumonia due to COVID-19 virus Code(s): U07.1 - COVID-19; J12.89 - OTHER VIRAL PNEUMONIA Status: Acute (2) Acute kidney injury superimposed on CKD Code(s): N17.9 - ACUTE KIDNEY FAILURE, UNSPECIFIED; N18.9 - CHRONIC KIDNEY DISEASE, UNSPECIFIED Status: Acute (3) Acute respiratory failure with hypoxia Code(s): J96.01 - ACUTE RESPIRATORY FAILURE WITH HYPOXIA Status: Acute (4) HTN (hypertension) Code(s): I10 - ESSENTIAL (PRIMARY) HYPERTENSION Status: Chronic Qualifiers: Hypertension type: essential hypertension Qualified Code(s): I10 - Essential (primary) hypertension (5) Dyslipidemia Code(s): E78.5 - HYPERLIPIDEMIA, UNSPECIFIED Status: Chronic (6) Peripheral neuropathy Code(s): G62.9 - POLYNEUROPATHY, UNSPECIFIED Status: Chronic Qualifiers: Peripheral neuropathy type: polyneuropathy, unspecified Qualified Code(s): G62.9 - Polyneuropathy, unspecified (7) Anemia of renal disease Code(s): D63.1 - ANEMIA IN CHRONIC KIDNEY DISEASE Status: Chronic (8) Metabolic acidosis Code(s): E87.2 - ACIDOSIS Status: Resolved - Plan is on high flow, continue dexamethasone. 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 on coreg and hydralazine, she also takes ambien chronically for insomnia at 10mg progressive worsening of renal function due to poor oral intake and likely contribution from covid, Creatinine around 2.5 at baseline is at high risk for complications with multiple comorbid conditions will need rehab/swing bed for dc plan, agrees to go to [facility] swing bed. off clonidine and is on lower dose coreg due to bradycardia with rates dipping into 40's which has resolved now. encourage po intake, is not eating much despite changing to regular diet patient has consented to talk to her daughter, d/w and gave full updates and guarded prognosis 05/10, 05/2020. 1/2 patient appeared little bit more confused today ABG indicated significant hypoxia. Her high flow was titrated accordingly per respiratory therapy. Patient continues not to eat very much. Patient encouraged to eat or drink supplements. Chest x-ray indicated worsening pneumonia. Worsening creatinine. We will hold all nephrotoxins. We will continue doxycycline and stop ceftriaxone. Patient started on a bicarb drip per nephrology. 05/13 pt was intubated on the night of 05/12. will continue current treatment. pt on steroids and abx. DVt ppx. H&H is low normal will continue to monitor 05/14 patient's urine output continues to decrease her creatinine continues to worsen. Patient may require dialysis. Patient's family called left message. Continue steroids for now. Patient received albumin. 05/15 patient continues to be intubated. She had a dialysis catheter placed today. We will continue steroids for now. Patient on DVT prophylaxis.
[2020-05-16] MEDS: Sodium Chloride 0.9% 1,000 ML IV SCH ×3 (03:09→15:19)
[2020-05-16 04:48] LABS: Anion Gap 18 mmol/L (10-20); BUN (Urea Nitrogen) 80 mg/dL (9.8-20.1); Calc. Creatinine Clearance 24 mL/min (70-130); Calcium 7.3 mg/dL (7.8-10.44); Carbon Dioxide 21 mmol/L (23-31); Chloride 103 mmol/L (98-107); Glucose 121 mg/dL (80-115); Potassium 4.3 mmol/L (3.5-5.1); Sodium 138 mmol/L (136-145)
[2020-05-16] MEDS: Propofol 1,000 MG/100 ML VIAL IV PRN ×4 (04:55→23:04)
[2020-05-16] MEDS: methylPREDNISolone Sod Succ 40 MG VIAL IVP SCH ×3 (05:24→15:57)
--- NOTE | 2020-05-16 07:24 | OP ---
DATE OF PROCEDURE: 05/15/2020 PREOPERATIVE DIAGNOSES: 1. Chronic kidney disease. 2. End-stage renal disease. 3. Morbid obesity. 4. COVID pneumonia. 5. Need of dialysis access. POSTOPERATIVE DIAGNOSES: 1. Chronic kidney disease. 2. End-stage renal disease. 3. Morbid obesity. 4. COVID pneumonia. 5. Need of dialysis access. PROCEDURE PERFORMED: Left femoral vein Trialysis catheter. ANESTHESIA: 1% Xylocaine. DESCRIPTION OF PROCEDURE: With the patient at bedside in ICU with her on the ventilator, groin was clipped of hair, prepared with ChloraPrep, and draped in routine fashion. Seldinger technique used to place a left femoral vein Trialysis catheter, secured with interrupted 3-0 nylon suture, removing the J-wire, aspirated each port with blood, flushed with heparinized saline solution. The patient tolerated the procedure well. Sterile dressing applied. Job ID: [id number]
[2020-05-16] MEDS: Heparin 5,000 UNITS/ML VIAL SC SCH ×3 (07:37→21:15)
[2020-05-16] MEDS: hydrALAZINE 25 MG TAB PO SCH ×3 (07:37→21:14)
[2020-05-16] MEDS: Atorvastatin Calcium 20 MG TAB PO SCH (07:37)
[2020-05-16] MEDS: Famotidine/PF 20 mg/2ml Vial SLOW IVP SCH (07:37)
[2020-05-16] MEDS: Ascorbic Acid 500 mg Chewable Tablet PO SCH (07:38)
[2020-05-16] MEDS: Senokot 8.6 MG TAB PO SCH ×2 (07:38→21:23)
[2020-05-16] MEDS: Folic Acid 1 MG TAB PO SCH (07:38)
[2020-05-16] MEDS: Carvedilol 3.125 MG TAB PO SCH ×2 (07:38→15:19)
[2020-05-16] MEDS: Amlodipine 10 MG TAB PER TUBE SCH (07:38)
[2020-05-16] MEDS: Cholecalciferol (Vitamin D3) 400 UNITS TAB PO SCH (07:40)
[2020-05-16] MEDS: Insulin Glargine 5 UNITS in Pre-Filled Syringe SC SCH (07:41)
[2020-05-16] MEDS: ALPRAZolam 0.5 MG TAB PO SCH ×2 (07:41→21:14)
[2020-05-16] MEDS: fentaNYL Citrate/PF 2,000 MCG in Sodium Chloride 0.9% 60 ML IV SCH (07:50)
[2020-05-16] MEDS: Mometasone 200 MCG/Formoterol 5 MCG 120 PUFF INHALER INH SCH ×2 (08:24→19:16)
[2020-05-16 08:29] LABS: Actual Bicarbonate (HCO3a) 19.1 mEq/L (22-28); Base Excess (BEa) -5.3 mEq/L (-2.0 to +3.0); CO2 Tension 32.3 mmHg (35.0-45.0); Calcium, Ionized (arterial) 0.99 mmol/L (1.12-1.30); Carboxyhemoglobin (COHb) 0.9 gm% (0.0-3.0); Hemoglobin (Hb) 7.5 g/dL (12.0-16.0); Potassium - ABG Lab 4.45 mmol/L (3.70-5.30); pH, Arterial 7.39 (7.35-7.45)
--- NOTE | 2020-05-16 09:14 | RAD ---
EXAM: Portable chest PROVIDED CLINICAL HISTORY: Respiratory insufficiency COMPARISON: 05/15/2020 FINDINGS: Interval worsening of bilateral airspace disease. Additional significant interval change with respect to the prior examination is not apparent. IMPRESSION: As above.
[2020-05-16] MEDS: Cefepime 1 GM in Sodium Chloride 0.9% 100 ML IVPB SCH (09:25)
[2020-05-16] MEDS: Lorazepam 2 MG/ML VIAL SLOW IVP PRN ×2 (09:25→15:57)
[2020-05-16 09:30] LABS: ALV-art Gradient 260.225 mmHg (0-20); O2 Tension (PaO2), arterial 55.9 mmHg (> 80.0); Puncture Site LRA
--- NOTE | 2020-05-16 09:46 | PRG ---
DATE OF SERVICE: 05/16/2020 SUBJECTIVE: A 70-year-old female, being dialyzed today with progressive respiratory failure. Sats are 98% on the monitor. OBJECTIVE: VITAL SIGNS: Blood pressure 120/80, . CHEST: crackles. CARDIAC: Normal S1, S2. No gallops. LABORATORY DATA: Creatinine 3.0. X-ray shows bilateral infiltrates, left greater than right. IMPRESSION: Chronic renal failure, lim positive pneumonia, respiratory failure, severe deconditioning. PLAN: At this stage, we are going to continue antibiotics, steroids, supportive care. She is not weanable at this stage. One-half hour of critical care time. Job ID: [id number]
--- NOTE | 2020-05-16 10:37 | PRG ---
DATE OF SERVICE: 05/16/2020 SUBJECTIVE: The patient in the ICU, on COVID isolation. OBJECTIVE: GENERAL: This is a well-built female, intubated. VITAL SIGNS: Temperature 99.5, pulse 61, respiratory rate 18, and blood pressure 130/59. NEUROLOGICAL: Intubated. HEENT: Intubated. LABORATORY DATA: Potassium 4.3, BUN is 80, and creatinine is 3.09. ASSESSMENT AND PLAN: 1. Acute kidney injury on chronic kidney disease, stage 4, dialysis dependent. We will continue on dialysis. Plan to have dialysis today for 3 hours. Continue dialysis as tolerated. Appreciate help from Surgery. 2. Acute hypoxic respiratory failure. 3. COVID-19 pneumonia. 4. Edema. 5. History of hypertension. 6. Anemia of chronic disease. Plan to continue dialysis as tolerated. Job ID: [id number]
[2020-05-16 12:45] LABS: Hemoglobin 6.9 g/dL (12.0-16.0); Mean Corpuscular HGB CONC 30.4 g/dL (32.0-36.0); Mean Corpuscular Hemoglobin 26.5 pg (27.0-31.0); Mean Corpuscular Volume 87.1 fL (78.0-98.0); Mean Platelet Volume 8.8 fL (7.4-10.4); Platelet Count 313 thou/uL (130-400); RBC Distribution Width 15.3 % (11.5-14.5); Red Blood Cell (RBC) Count 2.62 mill/uL (4.20-5.40); White Blood Cell (WBC) Count 30.9 thou/uL (4.8-10.8)
[2020-05-16 13:11] LABS: Band 7 % (5-11); Bite Cells SLIGHT = 2-5 cells (100X) (0-1/hpf); Eosinophils 1 % (0-10); Lymphocytes 3 % (21-51); MDiff Complete? YES; Monocytes 4 % (0-10); Neutrophil 85 % (42-75); Nucleated RBC 1 % (0); Platelet Morphology Comment Appears Adequate; Polychromasia MODERATE = 3-4 cells (100X) (0-2/hpf)
--- NOTE | 2020-05-16 17:56 | PDOC.HOSPP ---
- Subjective Encounter Date: 05/16/20 Encounter Time: 10:30 Subjective: Patient continues to be intubated - Objective Vital Signs & Weight: Vital Signs (12 hours) Temp Pulse Resp BP Pulse Ox 05/16/20 14:45 60 120/57 L 05/16/20 12:44 64 137/59 L 05/16/20 11:46 98.9 F 05/16/20 11:28 64 137/59 L 05/16/20 07:58 59 L 140/66 05/16/20 07:38 72 155/71 H 05/16/20 07:37 72 155/71 H 05/16/20 07:19 18 97 Weight Admit Weight 186 lb 4.8 oz Weight 197 lb 1.492 oz Most Recent Monitor Data Heart Rate from ECG 58 NIBP 136/60 NIBP BP-Mean 85 Respiration from ECG 10 SpO2 99 I&O: 05/15/20 05/16/20 05/17/20 06:59 06:59 06:59 Intake Total 2690 1892 1731 Output Total 405 370 215 Balance 2285 1522 1516 Result Diagrams: 05/16/20 08:00 05/16/20 03:25 Additional Labs: Accuchecks 05/16/20 05/16/20 05/15/20 09:30 03:15 21:37 POC Glucose 147 H 127 H 142 H 05/15/20 09:08 POC Glucose 157 H Hospitalist ROS - Medication Medications: Active Medications Generic Name Dose Route Start Last Admin Trade Name Freq PRN Reason Stop Dose Admin Acetaminophen 650 mg 05/05/20 03:50 05/05/20 04:19 Acetaminophen 325 Mg Tab PO 650 mg Q4H PRN Administration Mild Pain Albuterol Sulfate 2 puff 05/05/20 03:59 05/05/20 07:40 Albuterol 200 Puff (6.7gm Inhaler) INH 2 puff [id number] PRN Administration Wheezing Alprazolam 0.5 mg 05/02/20 21:00 05/16/20 07:41 Alprazolam 0.5 Mg Tab PO 0.5 mg BID ESTER Administration Amlodipine Besylate 10 mg 05/15/20 09:00 05/16/20 07:38 Amlodipine 10 Mg Tab PER TUBE 10 mg DAILY ESTER Administration Ascorbic Acid 1,000 mg 05/02/20 09:00 05/16/20 07:38 Ascorbic Acid 500 Mg Chewable Tablet PO 1,000 mg DAILY ESTER Administration Atorvastatin Calcium 20 mg 05/09/20 09:00 05/16/20 07:37 Atorvastatin Calcium 20 Mg Tab PO 20 mg DAILY ESTER Administration Carvedilol 3.125 mg 05/06/20 17:00 05/16/20 15:19 Carvedilol 3.125 Mg Tab PO 3.125 mg BID-WM ESTER Administration Cholecalciferol 400 units 05/02/20 09:00 05/16/20 07:40 Cholecalciferol (Vitamin D3) 400 Units Tab PO 400 units DAILY ESTER Administration Famotidine 20 mg 05/15/20 09:00 05/16/20 07:37 Famotidine/Pf 20 Mg/2ml Vial SLOW IVP 20 mg DAILY ESTER Administration Folic Acid 1 mg 05/03/20 09:00 05/16/20 07:38 Folic Acid 1 Mg Tab PO 1 mg DAILY ESTER Administration Heparin Sodium (Porcine) 5,000 units 05/02/20 09:00 05/16/20 12:44 Heparin 5,000 Units/Ml Vial SC 5,000 units TID ESTER Administration Hydralazine HCl 75 mg 05/08/20 09:00 05/16/20 12:44 Hydralazine 25 Mg Tab PO 75 mg TID ESTER Administration Doxycycline Hyclate 100 mg/ 100 mls @ 100 mls/hr 05/09/20 21:00 05/16/20 09:25 Sodium Chloride IVPB 05/19/20 21:01 100 mls Q12HR ESTER Administration Insulin Glargine 5 units/ 0.05 mls @ 0 mls/hr 05/13/20 09:00 05/16/20 07:41 Miscellaneous Medication SC 0.05 mls QAM ESTER Administration Fentanyl Citrate 2,000 mcg/ 100 mls @ 0 mls/hr 05/12/20 21:30 05/16/20 07:50 Sodium Chloride IV 06/11/20 21:30 100 mls INF ESTER Administration Protocol Per Protocol Sodium Chloride 1,000 mls @ 100 mls/hr 05/13/20 09:30 05/16/20 15:19 Normal Saline 0.9% IV 1,000 mls .Q10H ESTER Administration Cefepime HCl 1 gm/ Sodium 100 mls @ 200 mls/hr 05/15/20 10:00 05/16/20 09:25 Chloride IVPB 100 mls 1000 ESTER Administration Insulin Human Regular 0 units 05/13/20 09:28 05/15/20 04:11 Insulin Regular 300 Units/3 Ml Vial SC 2 unit .MODERATE SLIDING SC PRN Administration Moderate Correctional Scale Lorazepam 0.5 mg 05/12/20 19:07 05/12/20 19:24 Lorazepam 2 Mg/Ml Vial SLOW IVP 0.5 mg BIDPRN PRN Administration .ANXIETY Lorazepam 2 mg 05/12/20 21:30 05/16/20 15:57 Lorazepam 2 Mg/Ml Vial SLOW IVP 06/11/20 21:30 2 mg Q1H PRN Administration Breakthrough agitation Magnesium Citrate 300 ml 05/02/20 19:40 05/04/20 08:13 Magnesium Citrate 300 Ml Bot PO 300 ml DAILYPRN PRN Administration Constipation Methylprednisolone Sodium Succinate 40 mg 05/15/20 12:00 05/16/20 15:57 Methylprednisolone Sod Succ 40 Mg Vial IVP 40 mg Q6HR ESTER Administration Mometasone Furoate/Formoterol Fumar 2 puff 05/09/20 18:30 05/16/20 08:24 Mometasone 200 Mcg/Formoterol 5 Mcg 120 Puff Inhaler INH 2 puff BID-RT ESTER Administration Ondansetron HCl 4 mg 05/03/20 17:50 05/09/20 20:49 Ondansetron Pf 4 Mg/2 Ml Vial IVP 4 mg Q6H PRN Administration Nausea/Vomiting Ondansetron HCl 4 mg 05/08/20 01:15 05/08/20 14:20 Ondansetron Odt 4 Mg Tab PO 4 mg Q6H PRN Administration Nausea/Vomiting Propofol 1,000 mg 05/12/20 21:30 05/16/20 15:19 Propofol 1,000 Mg/100 Ml Vial IV 06/11/20 21:30 1,000 mg INF PRN Administration TO ACHIEVE GOAL RASS Protocol Senna 2 tab 05/08/20 21:00 05/16/20 07:38 Senokot 8.6 Mg Tab PO 2 tab BID ESTER Administration Zolpidem Tartrate 10 mg 05/02/20 19:39 05/11/20 21:08 Zolpidem Tartrate 5 Mg Tab PO 10 mg HSPRN PRN Administration Insomnia Hosp A/P - Plan (1) Pneumonia due to COVID-19 virus Code(s): U07.1 - COVID-19; J12.89 - OTHER VIRAL PNEUMONIA Status: Acute (2) Acute kidney injury superimposed on CKD Code(s): N17.9 - ACUTE KIDNEY FAILURE, UNSPECIFIED; N18.9 - CHRONIC KIDNEY DISEASE, UNSPECIFIED Status: Acute (3) Acute respiratory failure with hypoxia Code(s): J96.01 - ACUTE RESPIRATORY FAILURE WITH HYPOXIA Status: Acute (4) HTN (hypertension) Code(s): I10 - ESSENTIAL (PRIMARY) HYPERTENSION Status: Chronic Qualifiers: Hypertension type: essential hypertension Qualified Code(s): I10 - Essential (primary) hypertension (5) Dyslipidemia Code(s): E78.5 - HYPERLIPIDEMIA, UNSPECIFIED Status: Chronic (6) Peripheral neuropathy Code(s): G62.9 - POLYNEUROPATHY, UNSPECIFIED Status: Chronic Qualifiers: Peripheral neuropathy type: polyneuropathy, unspecified Qualified Code(s): G62.9 - Polyneuropathy, unspecified (7) Anemia of renal disease Code(s): D63.1 - ANEMIA IN CHRONIC KIDNEY DISEASE Status: Chronic (8) Metabolic acidosis Code(s): E87.2 - ACIDOSIS Status: Resolved - Plan is on high flow, continue dexamethasone. 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 on coreg and hydralazine, she also takes ambien chronically for insomnia at 10mg progressive worsening of renal function due to poor oral intake and likely contribution from covid, Creatinine around 2.5 at baseline is at high risk for complications with multiple comorbid conditions will need rehab/swing bed for dc plan, agrees to go to [facility] swing bed. off clonidine and is on lower dose coreg due to bradycardia with rates dipping into 40's which has resolved now. encourage po intake, is not eating much despite changing to regular diet patient has consented to talk to her daughter, d/w and gave full updates and guarded prognosis 05/10, 05/2020. 1/2 patient appeared little bit more confused today ABG indicated significant hypoxia. Her high flow was titrated accordingly per respiratory therapy. Patient continues not to eat very much. Patient encouraged to eat or drink supplements. Chest x-ray indicated worsening pneumonia. Worsening creatinine. We will hold all nephrotoxins. We will continue doxycycline and stop ceftriaxone. Patient started on a bicarb drip per nephrology. 05/13 pt was intubated on the night of 05/12. will continue current treatment. pt on steroids and abx. DVt ppx. H&H is low normal will continue to monitor 05/14 patient's urine output continues to decrease her creatinine continues to worsen. Patient may require dialysis. Patient's family called left message. Continue steroids for now. Patient received albumin. 05/15 patient continues to be intubated. She had a dialysis catheter placed today. We will continue steroids for now. Patient on DVT prophylaxis. 05/16 patient continues to be intubated. Dialysis catheter placed yesterday patient underwent dialysis. Not tolerating tube feeds will start patient on Reglan. Continue steroids for now. Will call family and update.
[2020-05-16] MEDS: Metoclopramide HCl 10 MG/2 ML VIAL IVP SCH (18:09)
[2020-05-17] MEDS: methylPREDNISolone Sod Succ 40 MG VIAL IVP SCH ×4 (00:19→17:48)
[2020-05-17] MEDS: Metoclopramide HCl 10 MG/2 ML VIAL IVP SCH ×3 (01:43→17:48)
[2020-05-17] MEDS: Sodium Chloride 0.9% 1,000 ML IV SCH ×2 (03:09→13:43)
[2020-05-17] MEDS: Insulin Regular 300 UNITS/3 ML VIAL SC PRN ×2 (04:28→21:40)
[2020-05-17 05:44] LABS: Band 1 % (5-11); Hemoglobin 6.9 g/dL (12.0-16.0); Lymphocytes 1 % (21-51); MDiff Complete? YES; Mean Corpuscular Hemoglobin 26.9 pg (27.0-31.0); Mean Corpuscular Volume 86.7 fL (78.0-98.0); Mean Platelet Volume 9.2 fL (7.4-10.4); Monocytes 2 % (0-10); Neutrophil 96 % (42-75); Nucleated RBC 1 % (0); Platelet Count 259 thou/uL (130-400); RBC Distribution Width 15.3 % (11.5-14.5); Red Blood Cell (RBC) Count 2.56 mill/uL (4.20-5.40); Schistocytes SLIGHT = 2-5 cells (100X) (0-1/hpf); White Blood Cell (WBC) Count 29.2 thou/uL (4.8-10.8)
[2020-05-17 05:47] LABS: Anion Gap 18 mmol/L (10-20); BUN (Urea Nitrogen) 62 mg/dL (9.8-20.1); Calc. Creatinine Clearance 26 mL/min (70-130); Calcium 7.1 mg/dL (7.8-10.44); Carbon Dioxide 22 mmol/L (23-31); Chloride 101 mmol/L (98-107); Glucose 164 mg/dL (80-115); Potassium 4.9 mmol/L (3.5-5.1); Sodium 136 mmol/L (136-145)
[2020-05-17] MEDS: Propofol 1,000 MG/100 ML VIAL IV PRN ×3 (06:23→19:59)
[2020-05-17] MEDS: Mometasone 200 MCG/Formoterol 5 MCG 120 PUFF INHALER INH SCH ×2 (06:57→19:48)
[2020-05-17 07:40] LABS: Actual Bicarbonate (HCO3a) 21.8 mEq/L (22-28); Base Excess (BEa) -2.6 mEq/L (-2.0 to +3.0); CO2 Tension 35.9 mmHg (35.0-45.0); Calcium, Ionized (arterial) 0.97 mmol/L (1.12-1.30); Carboxyhemoglobin (COHb) 0.5 gm% (0.0-3.0); Hemoglobin (Hb) 8.3 g/dL (12.0-16.0); O2 Tension (PaO2), arterial 65.4 mmHg (> 80.0)
[2020-05-17 07:42] LABS: Puncture Site RRA
[2020-05-17 07:43] LABS: ALV-art Gradient 246.225 mmHg (0-20)
--- NOTE | 2020-05-17 09:19 | PRG ---
DATE OF SERVICE: 05/17/2020 SUBJECTIVE: Dialyzed. OBJECTIVE: VITAL SIGNS: Saturations are better at 100% presently on 70%, low PEEP of 11, pulse 58, blood pressure 130/80, respiratory rate 18. I's and O's poor. CHEST: No wheezing, no crackles. CARDIAC: Normal S1 and S2. No gallops. ABDOMEN: No masses. LABORATORY DATA: White count 29,000, H and H are 6 and 22, platelet count is 259. Lytes are normal. BUN and creatinine 60 and 2.95. PO2 of 65, 50% and low PEEP of 10. ASSESSMENT AND PLAN: Hoskins positive pneumonia, renal failure, dialysis, anemia. Transfuse a unit of packed cells during next dialysis. Continue empiric antibiotics. Baseline chest x-ray. Supportive care, nutrition, PT. One-half hour of critical care time. Job ID: [id number]
[2020-05-17] MEDS: hydrALAZINE 25 MG TAB PO SCH ×3 (09:36→21:19)
[2020-05-17] MEDS: Folic Acid 1 MG TAB PO SCH (09:37)
[2020-05-17] MEDS: Atorvastatin Calcium 20 MG TAB PO SCH (09:37)
[2020-05-17] MEDS: Carvedilol 3.125 MG TAB PO SCH ×2 (09:37→17:49)
[2020-05-17] MEDS: Famotidine/PF 20 mg/2ml Vial SLOW IVP SCH (09:37)
[2020-05-17] MEDS: ALPRAZolam 0.5 MG TAB PO SCH ×2 (09:37→21:19)
[2020-05-17] MEDS: Cholecalciferol (Vitamin D3) 400 UNITS TAB PO SCH (09:37)
[2020-05-17] MEDS: Ascorbic Acid 500 mg Chewable Tablet PO SCH (09:37)
[2020-05-17] MEDS: Insulin Glargine 5 UNITS in Pre-Filled Syringe SC SCH (09:38)
[2020-05-17] MEDS: Amlodipine 10 MG TAB PER TUBE SCH (09:39)
[2020-05-17] MEDS: Heparin 5,000 UNITS/ML VIAL SC SCH ×3 (09:39→21:20)
[2020-05-17] MEDS: fentaNYL Citrate/PF 2,000 MCG in Sodium Chloride 0.9% 60 ML IV SCH (10:05)
[2020-05-17] MEDS: Senokot 8.6 MG TAB PO SCH ×2 (10:42→21:19)
--- NOTE | 2020-05-17 11:08 | PRG ---
DATE OF SERVICE: 05/17/2020 SUBJECTIVE: The patient in ICU, COVID isolation, intubated. OBJECTIVE: GENERAL: This is a well-built female, intubated. VITAL SIGNS: Temperature 98.8, pulse 59, respiratory rate 18, blood pressure 152/72. HEENT: Intubated. NEUROLOGICAL: Intubated. The patient is in COVID isolation. LABORATORY DATA: Potassium 4.9, BUN is 62, and creatinine is 2.93. ASSESSMENT: 1. Acute kidney injury on chronic kidney disease, stage 4, dialysis dependent. No dialysis today. We will plan for dialysis tomorrow. 2. Anemia. We will transfuse 1 unit of blood with dialysis. 3. Acute hypoxic respiratory failure. 4. COVID-19 pneumonia. 5. Edema. 6. History of hypertension. PLAN: Plan is to transfuse with dialysis tomorrow. We will continue dialysis as tolerated. No dialysis today. Limit fluid intake. Job ID: [id number]
[2020-05-17] MEDS: Cefepime 1 GM in Sodium Chloride 0.9% 100 ML IVPB SCH (13:42)
--- NOTE | 2020-05-17 16:18 | PDOC.HOSPP ---
- Subjective Encounter Date: 05/17/20 Encounter Time: 10:30 Subjective: pt intubated - Objective Vital Signs & Weight: Vital Signs (12 hours) Temp Pulse Resp BP Pulse Ox 05/17/20 15:06 59 L 127/58 L 05/17/20 14:28 59 L 127/58 L 05/17/20 14:00 12 05/17/20 12:00 98.6 F 12 05/17/20 10:51 62 152/70 H 05/17/20 10:00 12 05/17/20 09:39 58 L 05/17/20 09:36 58 L 05/17/20 08:00 98.8 F 12 100 05/17/20 07:13 58 L 05/17/20 05:58 15 Weight Admit Weight 186 lb 4.8 oz Weight 197 lb 1.492 oz Most Recent Monitor Data Heart Rate from ECG 59 NIBP 126/57 NIBP BP-Mean 80 Respiration from ECG 0 SpO2 98 I&O: 05/16/20 05/17/20 05/18/20 06:59 06:59 06:59 Intake Total 1892 3637 90 Output Total 370 295 25 Balance 1522 3342 65 Result Diagrams: 05/17/20 03:45 05/17/20 03:45 Additional Labs: Accuchecks 05/17/20 05/17/20 05/16/20 09:50 03:40 20:57 POC Glucose 165 H 174 H 176 H Hospitalist ROS - Review of Systems Other: intubated - Medication Medications: Active Medications Generic Name Dose Route Start Last Admin Trade Name Freq PRN Reason Stop Dose Admin Acetaminophen 650 mg 05/05/20 03:50 05/05/20 04:19 Acetaminophen 325 Mg Tab PO 650 mg Q4H PRN Administration Mild Pain Albuterol Sulfate 2 puff 05/05/20 03:59 05/05/20 07:40 Albuterol 200 Puff (6.7gm Inhaler) INH 2 puff [id number] PRN Administration Wheezing Alprazolam 0.5 mg 05/02/20 21:00 05/17/20 09:37 Alprazolam 0.5 Mg Tab PO 0.5 mg BID ESTER Administration Amlodipine Besylate 10 mg 05/15/20 09:00 05/17/20 09:39 Amlodipine 10 Mg Tab PER TUBE 10 mg DAILY ESTER Administration Ascorbic Acid 1,000 mg 05/02/20 09:00 05/17/20 09:37 Ascorbic Acid 500 Mg Chewable Tablet PO 1,000 mg DAILY ESTER Administration Atorvastatin Calcium 20 mg 05/09/20 09:00 05/17/20 09:37 Atorvastatin Calcium 20 Mg Tab PO 20 mg DAILY ESTER Administration Carvedilol 3.125 mg 05/06/20 17:00 05/17/20 09:37 Carvedilol 3.125 Mg Tab PO 3.125 mg BID-WM ESTER Administration Cholecalciferol 400 units 05/02/20 09:00 05/17/20 09:37 Cholecalciferol (Vitamin D3) 400 Units Tab PO 400 units DAILY ESTRE Administration Famotidine 20 mg 05/15/20 09:00 05/17/20 09:37 Famotidine/Pf 20 Mg/2ml Vial SLOW IVP 20 mg DAILY ESTER Administration Folic Acid 1 mg 05/03/20 09:00 05/17/20 09:37 Folic Acid 1 Mg Tab PO 1 mg DAILY ESTER Administration Heparin Sodium (Porcine) 5,000 units 05/02/20 09:00 05/17/20 15:06 Heparin 5,000 Units/Ml Vial SC 5,000 units TID ESTER Administration Hydralazine HCl 75 mg 05/08/20 09:00 05/17/20 15:06 Hydralazine 25 Mg Tab PO 75 mg TID ESTER Administration Doxycycline Hyclate 100 mg/ 100 mls @ 100 mls/hr 05/09/20 21:00 05/17/20 09:39 Sodium Chloride IVPB 05/19/20 21:01 100 mls Q12HR ESTER Administration Insulin Glargine 5 units/ 0.05 mls @ 0 mls/hr 05/13/20 09:00 05/17/20 09:38 Miscellaneous Medication SC 0.05 mls QAM ESTER Administration Fentanyl Citrate 2,000 mcg/ 100 mls @ 0 mls/hr 05/12/20 21:30 05/16/20 07:50 Sodium Chloride IV 06/11/20 21:30 100 mls INF ESTER Administration Protocol Per Protocol Sodium Chloride 1,000 mls @ 100 mls/hr 05/13/20 09:30 05/17/20 13:43 Normal Saline 0.9% IV 1,000 mls .Q10H ESTER Administration Cefepime HCl 1 gm/ Sodium 100 mls @ 200 mls/hr 05/15/20 10:00 05/17/20 13:42 Chloride IVPB 100 mls 1000 ESTER Administration Insulin Human Regular 0 units 05/13/20 09:28 05/17/20 04:28 Insulin Regular 300 Units/3 Ml Vial SC 2 unit .MODERATE SLIDING SC PRN Administration Moderate Correctional Scale Lorazepam 0.5 mg 05/12/20 19:07 05/12/20 19:24 Lorazepam 2 Mg/Ml Vial SLOW IVP 0.5 mg BIDPRN PRN Administration .ANXIETY Lorazepam 2 mg 05/12/20 21:30 05/16/20 15:57 Lorazepam 2 Mg/Ml Vial SLOW IVP 06/11/20 21:30 2 mg Q1H PRN Administration Breakthrough agitation Magnesium Citrate 300 ml 05/02/20 19:40 05/04/20 08:13 Magnesium Citrate 300 Ml Bot PO 300 ml DAILYPRN PRN Administration Constipation Methylprednisolone Sodium Succinate 40 mg 05/15/20 12:00 05/17/20 13:43 Methylprednisolone Sod Succ 40 Mg Vial IVP 40 mg Q6HR ESTER Administration Metoclopramide HCl 10 mg 05/16/20 18:00 05/17/20 10:43 Metoclopramide Hcl 10 Mg/2 Ml Vial IVP 10 mg Q8H ESTER Administration Mometasone Furoate/Formoterol Fumar 2 puff 05/09/20 18:30 05/17/20 06:57 Mometasone 200 Mcg/Formoterol 5 Mcg 120 Puff Inhaler INH 2 puff BID-RT ESTER Administration Ondansetron HCl 4 mg 05/03/20 17:50 05/09/20 20:49 Ondansetron Pf 4 Mg/2 Ml Vial IVP 4 mg Q6H PRN Administration Nausea/Vomiting Ondansetron HCl 4 mg 05/08/20 01:15 05/08/20 14:20 Ondansetron Odt 4 Mg Tab PO 4 mg Q6H PRN Administration Nausea/Vomiting Propofol 1,000 mg 05/12/20 21:30 05/17/20 06:23 Propofol 1,000 Mg/100 Ml Vial IV 06/11/20 21:30 1,000 mg INF PRN Administration TO ACHIEVE GOAL RASS Protocol Senna 2 tab 05/08/20 21:00 05/17/20 10:42 Senokot 8.6 Mg Tab PO 2 tab BID ESTER Administration Zolpidem Tartrate 10 mg 05/02/20 19:39 05/11/20 21:08 Zolpidem Tartrate 5 Mg Tab PO 10 mg HSPRN PRN Administration Insomnia - Exam Heart: negative: RRR, no murmur, no gallops, no rubs, normal peripheral pulses, irregular, diminshed peripheral pulses, murmur present, II/IV, III/IV Respiratory: negative: CTAB, no wheezes, no rales, no ronchi, normal chest exp ansion, no tachypnea, normal percussion, rales, rhonchi, tachypneic, wheezes Gastrointestinal: negative: soft, non-tender, non-distended, normal bowel sounds, no palpable masses, no hepatomegaly, no splenomegaly, no bruit, no guarding, no rigidity, tender to palpation, distended, diminished bowl sounds, voluntary guarding Extremities: 1+ LE edema Hosp A/P - Plan (1) Pneumonia due to COVID-19 virus Code(s): U07.1 - COVID-19; J12.89 - OTHER VIRAL PNEUMONIA Status: Acute (2) Acute kidney injury superimposed on CKD Code(s): N17.9 - ACUTE KIDNEY FAILURE, UNSPECIFIED; N18.9 - CHRONIC KIDNEY DISEASE, UNSPECIFIED Status: Acute (3) Acute respiratory failure with hypoxia Code(s): J96.01 - ACUTE RESPIRATORY FAILURE WITH HYPOXIA Status: Acute (4) HTN (hypertension) Code(s): I10 - ESSENTIAL (PRIMARY) HYPERTENSION Status: Chronic Qualifiers: Hypertension type: essential hypertension Qualified Code(s): I10 - Essential (primary) hypertension (5) Dyslipidemia Code(s): E78.5 - HYPERLIPIDEMIA, UNSPECIFIED Status: Chronic (6) Peripheral neuropathy Code(s): G62.9 - POLYNEUROPATHY, UNSPECIFIED Status: Chronic Qualifiers: Peripheral neuropathy type: polyneuropathy, unspecified Qualified Code(s): G62.9 - Polyneuropathy, unspecified (7) Anemia of renal disease Code(s): D63.1 - ANEMIA IN CHRONIC KIDNEY DISEASE Status: Chronic (8) Metabolic acidosis Code(s): E87.2 - ACIDOSIS Status: Resolved - Plan is on high flow, continue dexamethasone. 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 on coreg and hydralazine, she also takes ambien chronically for insomnia at 10mg progressive worsening of renal function due to poor oral intake and likely contribution from covid, Creatinine around 2.5 at baseline is at high risk for complications with multiple comorbid conditions will need rehab/swing bed for dc plan, agrees to go to [place] swing bed. off clonidine and is on lower dose coreg due to bradycardia with rates dipping into 40's which has resolved now. encourage po intake, is not eating much despite changing to regular diet patient has consented to talk to her daughter, d/w and gave full updates and guarded prognosis 05/10, 05/2020. 05/12 patient appeared little bit more confused today ABG indicated significant hypoxia. Her high flow was titrated accordingly per respiratory therapy. Patient continues not to eat very much. Patient encouraged to eat or drink supplements. Chest x-ray indicated worsening pneumonia. Worsening creatinine. We will hold all nephrotoxins. We will continue doxycycline and stop ceftriaxone. Patient started on a bicarb drip per nephrology. 05/13 pt was intubated on the night of 05/12. will continue current treatment. pt on steroids and abx. DVt ppx. H&H is low normal will continue to monitor 05/14 patient's urine output continues to decrease her creatinine continues to worsen. Patient may require dialysis. Patient's family called left message. Continue steroids for now. Patient received albumin. 05/15 patient continues to be intubated. She had a dialysis catheter placed today. We will continue steroids for now. Patient on DVT prophylaxis. 05/16 patient continues to be intubated. Dialysis catheter placed yesterday patient underwent dialysis. Not tolerating tube feeds will start patient on Reglan. Continue steroids for now. Will call family and update. 05/17 pt continues to be intubated. will continue dialysis for now. pt now t olerating her tube feeds. will continue to current tx and reglan. continue steroids for now. son Jimenez called and updated. pt's wbc elevated on broad abx for now. HH is 6.9 will monitor may need blood transfusion.
[2020-05-18] MEDS: methylPREDNISolone Sod Succ 40 MG VIAL IVP SCH ×5 (00:13→23:33)
[2020-05-18] MEDS: Sodium Chloride 0.9% 1,000 ML IV SCH ×3 (00:14→20:01)
[2020-05-18] MEDS: Metoclopramide HCl 10 MG/2 ML VIAL IVP SCH ×3 (02:14→16:15)
[2020-05-18] MEDS: Propofol 1,000 MG/100 ML VIAL IV PRN ×3 (03:29→18:28)
[2020-05-18 04:59] LABS: Anion Gap 20 mmol/L (10-20); BUN (Urea Nitrogen) 96 mg/dL (9.8-20.1); Calc. Creatinine Clearance 20 mL/min (70-130); Carbon Dioxide 19 mmol/L (23-31); Chloride 101 mmol/L (98-107); Glucose 168 mg/dL (80-115); Potassium 5.2 mmol/L (3.5-5.1); Sodium 135 mmol/L (136-145)
[2020-05-18] MEDS: Insulin Regular 300 UNITS/3 ML VIAL SC PRN ×3 (05:01→23:20)
[2020-05-18 05:14] LABS: Band 5 % (5-11); Hemoglobin 6.7 g/dL (12.0-16.0); Lymphocytes 3 % (21-51); MDiff Complete? YES; Mean Corpuscular HGB CONC 30.4 g/dL (32.0-36.0); Mean Corpuscular Hemoglobin 26.5 pg (27.0-31.0); Mean Corpuscular Volume 87.2 fL (78.0-98.0); Mean Platelet Volume 9.4 fL (7.4-10.4); Metamyelocyte 1 % (0-0); Neutrophil 91 % (42-75); Nucleated RBC 2 % (0); Platelet Count 253 thou/uL (130-400); Platelet Morphology Comment Appears Adequate; RBC Distribution Width 15.4 % (11.5-14.5); Red Blood Cell (RBC) Count 2.51 mill/uL (4.20-5.40); White Blood Cell (WBC) Count 26.2 thou/uL (4.8-10.8)
[2020-05-18] MEDS: Mometasone 200 MCG/Formoterol 5 MCG 120 PUFF INHALER INH SCH ×2 (06:55→19:32)
[2020-05-18] MEDS: Insulin Glargine 5 UNITS in Pre-Filled Syringe SC SCH (09:19)
[2020-05-18] MEDS: hydrALAZINE 25 MG TAB PO SCH ×3 (09:20→20:15)
[2020-05-18] MEDS: Senokot 8.6 MG TAB PO SCH ×2 (09:20→20:02)
[2020-05-18] MEDS: Cholecalciferol (Vitamin D3) 400 UNITS TAB PO SCH (09:20)
[2020-05-18] MEDS: Ascorbic Acid 500 mg Chewable Tablet PO SCH (09:20)
[2020-05-18] MEDS: Folic Acid 1 MG TAB PO SCH (09:20)
[2020-05-18] MEDS: Amlodipine 10 MG TAB PER TUBE SCH (09:21)
[2020-05-18] MEDS: Atorvastatin Calcium 20 MG TAB PO SCH (09:21)
[2020-05-18] MEDS: Carvedilol 3.125 MG TAB PO SCH ×2 (09:21→16:11)
[2020-05-18] MEDS: Heparin 5,000 UNITS/ML VIAL SC SCH ×3 (09:22→20:02)
[2020-05-18] MEDS: Famotidine/PF 20 mg/2ml Vial SLOW IVP SCH (09:22)
[2020-05-18] MEDS: Cefepime 1 GM in Sodium Chloride 0.9% 100 ML IVPB SCH (09:23)
[2020-05-18] MEDS: ALPRAZolam 0.5 MG TAB PO SCH ×2 (09:27→20:02)
--- NOTE | 2020-05-18 10:02 | RAD ---
PORTABLE CHEST 1 VIEW: Date: 05/18/2020 Time: 0526 hours HISTORY: Respiratory failure. FINDINGS/IMPRESSION: No significant interval change is seen since the comparison exam of 05/16/2020. POS: ADE
--- NOTE | 2020-05-18 10:51 | PRG ---
DATE OF SERVICE: 05/18/2020 SUBJECTIVE: The patient on COVID isolation, remains in ICU, intubated. Getting dialysis. OBJECTIVE: GENERAL: Well-built female, intubated, seen in ICU. VITAL SIGNS: Temperature 98.6, pulse 67, respiratory rate 18, blood pressure 177/105. HEENT: Intubated. NEUROLOGIC: Intubated. The patient on COVID isolation. LABORATORY DATA: Potassium 5.2, BUN is 96, creatinine is 3.83. ASSESSMENT: 1. Acute kidney injury on chronic kidney stage 4, dialysis dependent. We will plan for dialysis. Continue dialysis. 2. Anemia. We will transfuse 2 units of PRBC with dialysis. 3. Acute hypoxic respiratory failure. 4. COVID-19 pneumonia. 5. Edema. 6. Hypertension. PLAN: Continue on dialysis. We will have dialysis today. We will follow. Job ID: [id number]
--- NOTE | 2020-05-18 11:22 | PRG ---
DATE OF SERVICE: 05/18/2020 SUBJECTIVE: Genia Reed is being dialyzed this morning. OBJECTIVE: VITAL SIGNS: Her saturations are 98% on 45% FiO2 bilevel, low PEEP of 10. Her temperature is 98, blood pressure , respiratory rate 18. CHEST: No wheezing. No crackles. CARDIAC: Normal S1 and S2. No gallops. ABDOMEN: No masses. LABORATORY DATA: White count 26,000, H and H 6 and 21. Creatinine 3. X-ray shows bilateral infiltrates. ASSESSMENT: Hoskins positive pneumonia, respiratory failure, leukocytosis. PLAN: She is going to be transfused today. Continue otherwise present antibiotics. She may have to be recultured if her white count keeps going up. Her vent is going to be adjusted since her oxygenation improved. One-half hour of critical time. Job ID: [id number]
[2020-05-18] MEDS ORDERED: Heparin 10,000 UNITS/ 10 ML VIAL ONE (12:35)
[2020-05-18] MEDS: fentaNYL Citrate/PF 2,000 MCG in Sodium Chloride 0.9% 60 ML IV SCH (13:29)
--- NOTE | 2020-05-18 16:52 | PDOC.HOSPP ---
- Subjective Encounter Date: 05/18/20 Encounter Time: 12:30 Subjective: Patient continues to be intubated - Objective Vital Signs & Weight: Vital Signs (12 hours) Temp Pulse Resp BP Pulse Ox 05/18/20 13:29 61 05/18/20 13:08 61 05/18/20 12:00 98.4 F 16 05/18/20 11:00 98.2 F 05/18/20 10:00 20 05/18/20 09:21 62 158/74 H 05/18/20 09:20 62 158/74 H 05/18/20 08:00 98.6 F 20 99 05/18/20 06:49 62 05/18/20 06:00 20 Weight Admit Weight 186 lb 4.8 oz Weight 197 lb 1.492 oz Most Recent Monitor Data Heart Rate from ECG 68 NIBP 143/66 NIBP BP-Mean 91 Respiration from ECG 12 SpO2 98 I&O: 05/17/20 05/18/20 05/19/20 06:59 06:59 06:59 Intake Total 3637 2299 0 Output Total 295 60 Balance 3342 2239 0 Result Diagrams: 05/18/20 03:43 05/18/20 03:43 Additional Labs: Accuchecks 05/18/20 05/18/20 05/17/20 11:00 03:50 21:37 POC Glucose 149 H 160 H 214 H 05/17/20 18:19 POC Glucose 237 H Hospitalist ROS - Medication Medications: Active Medications Generic Name Dose Route Start Last Admin Trade Name Freq PRN Reason Stop Dose Admin Acetaminophen 650 mg 05/05/20 03:50 05/05/20 04:19 Acetaminophen 325 Mg Tab PO 650 mg Q4H PRN Administration Mild Pain Albuterol Sulfate 2 puff 05/05/20 03:59 05/05/20 07:40 Albuterol 200 Puff (6.7gm Inhaler) INH 2 puff [id number] PRN Administration Wheezing Alprazolam 0.5 mg 05/02/20 21:00 05/18/20 09:27 Alprazolam 0.5 Mg Tab PO 0.5 mg BID ESTER Administration Amlodipine Besylate 10 mg 05/15/20 09:00 05/18/20 09:21 Amlodipine 10 Mg Tab PER TUBE 10 mg DAILY ESTER Administration Ascorbic Acid 1,000 mg 05/02/20 09:00 05/18/20 09:20 Ascorbic Acid 500 Mg Chewable Tablet PO 1,000 mg DAILY ESTER Administration Atorvastatin Calcium 20 mg 05/09/20 09:00 05/18/20 09:21 Atorvastatin Calcium 20 Mg Tab PO 20 mg DAILY ESTER Administration Carvedilol 3.125 mg 05/06/20 17:00 05/18/20 16:11 Carvedilol 3.125 Mg Tab PO 3.125 mg BID-WM ESTER Administration Cholecalciferol 400 units 05/02/20 09:00 05/18/20 09:20 Cholecalciferol (Vitamin D3) 400 Units Tab PO 400 units DAILY ESTER Administration Folic Acid 1 mg 05/03/20 09:00 05/18/20 09:20 Folic Acid 1 Mg Tab PO 1 mg DAILY ESTER Administration Heparin Sodium (Porcine) 5,000 units 05/02/20 09:00 05/18/20 13:29 Heparin 5,000 Units/Ml Vial SC 5,000 units TID ESTER Administration Hydralazine HCl 75 mg 05/08/20 09:00 05/18/20 13:29 Hydralazine 25 Mg Tab PO 75 mg TID ESTER Administration Doxycycline Hyclate 100 mg/ 100 mls @ 100 mls/hr 05/09/20 21:00 05/18/20 10:27 Sodium Chloride IVPB 05/19/20 21:01 100 mls Q12HR ESTER Administration Insulin Glargine 5 units/ 0.05 mls @ 0 mls/hr 05/13/20 09:00 05/18/20 09:19 Miscellaneous Medication SC 0.05 mls QAM ESTER Administration Fentanyl Citrate 2,000 mcg/ 100 mls @ 0 mls/hr 05/12/20 21:30 05/18/20 13:29 Sodium Chloride IV 06/11/20 21:30 100 mls INF ESTER Administration Protocol Per Protocol Sodium Chloride 1,000 mls @ 100 mls/hr 05/13/20 09:30 05/18/20 10:27 Normal Saline 0.9% IV 1,000 mls .Q10H ESTER Administration Cefepime HCl 1 gm/ Sodium 100 mls @ 200 mls/hr 05/15/20 10:00 05/18/20 09:23 Chloride IVPB 100 mls 1000 ESTER Administration Insulin Human Regular 0 units 05/13/20 09:28 05/18/20 15:46 Insulin Regular 300 Units/3 Ml Vial SC 2 unit .MODERATE SLIDING SC PRN Administration Moderate Correctional Scale Lorazepam 0.5 mg 05/12/20 19:07 05/12/20 19:24 Lorazepam 2 Mg/Ml Vial SLOW IVP 0.5 mg BIDPRN PRN Administration .ANXIETY Lorazepam 2 mg 05/12/20 21:30 05/16/20 15:57 Lorazepam 2 Mg/Ml Vial SLOW IVP 06/11/20 21:30 2 mg Q1H PRN Administration Breakthrough agitation Magnesium Citrate 300 ml 05/02/20 19:40 05/04/20 08:13 Magnesium Citrate 300 Ml Bot PO 300 ml DAILYPRN PRN Administration Constipation Methylprednisolone Sodium Succinate 40 mg 05/15/20 12:00 05/18/20 16:15 Methylprednisolone Sod Succ 40 Mg Vial IVP 40 mg Q6HR ESTER Administration Metoclopramide HCl 10 mg 05/16/20 18:00 05/18/20 16:15 Metoclopramide Hcl 10 Mg/2 Ml Vial IVP 10 mg Q8H ESTER Administration Mometasone Furoate/Formoterol Fumar 2 puff 05/09/20 18:30 05/18/20 06:55 Mometasone 200 Mcg/Formoterol 5 Mcg 120 Puff Inhaler INH 2 puff BID-RT ESTER Administration Ondansetron HCl 4 mg 05/03/20 17:50 05/09/20 20:49 Ondansetron Pf 4 Mg/2 Ml Vial IVP 4 mg Q6H PRN Administration Nausea/Vomiting Ondansetron HCl 4 mg 05/08/20 01:15 05/08/20 14:20 Ondansetron Odt 4 Mg Tab PO 4 mg Q6H PRN Administration Nausea/Vomiting Propofol 1,000 mg 05/12/20 21:30 05/18/20 03:29 Propofol 1,000 Mg/100 Ml Vial IV 06/11/20 21:30 1,000 mg INF PRN Administration TO ACHIEVE GOAL RASS Protocol Senna 2 tab 05/08/20 21:00 05/18/20 09:20 Senokot 8.6 Mg Tab PO 2 tab BID ESTER Administration Zolpidem Tartrate 10 mg 05/02/20 19:39 05/11/20 21:08 Zolpidem Tartrate 5 Mg Tab PO 10 mg HSPRN PRN Administration Insomnia Hosp A/P - Plan (1) Pneumonia due to COVID-19 virus Code(s): U07.1 - COVID-19; J12.89 - OTHER VIRAL PNEUMONIA Status: Acute (2) Acute kidney injury superimposed on CKD Code(s): N17.9 - ACUTE KIDNEY FAILURE, UNSPECIFIED; N18.9 - CHRONIC KIDNEY DISEASE, UNSPECIFIED Status: Acute (3) Acute respiratory failure with hypoxia Code(s): J96.01 - ACUTE RESPIRATORY FAILURE WITH HYPOXIA Status: Acute (4) HTN (hypertension) Code(s): I10 - ESSENTIAL (PRIMARY) HYPERTENSION Status: Chronic Qualifiers: Hypertension type: essential hypertension Qualified Code(s): I10 - Essential (primary) hypertension (5) Dyslipidemia Code(s): E78.5 - HYPERLIPIDEMIA, UNSPECIFIED Status: Chronic (6) Peripheral neuropathy Code(s): G62.9 - POLYNEUROPATHY, UNSPECIFIED Status: Chronic Qualifiers: Peripheral neuropathy type: polyneuropathy, unspecified Qualified Code(s): G62.9 - Polyneuropathy, unspecified (7) Anemia of renal disease Code(s): D63.1 - ANEMIA IN CHRONIC KIDNEY DISEASE Status: Chronic (8) Metabolic acidosis Code(s): E87.2 - ACIDOSIS Status: Resolved - Plan is on high flow, continue dexamethasone. 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 on coreg and hydralazine, she also takes ambien chronically for insomnia at 10mg progressive worsening of renal function due to poor oral intake and likely contribution from covid, Creatinine around 2.5 at baseline is at high risk for complications with multiple comorbid conditions will need rehab/swing bed for dc plan, agrees to go to [place] swing bed. off clonidine and is on lower dose coreg due to bradycardia with rates dipping into 40's which has resolved now. encourage po intake, is not eating much despite changing to regular diet patient has consented to talk to her daughter, d/w and gave full updates and guarded prognosis 05/10, 05/2020. 1/2 patient appeared little bit more confused today ABG indicated significant hypoxia. Her high flow was titrated accordingly per respiratory therapy. Patient continues not to eat very much. Patient encouraged to eat or drink supplements. Chest x-ray indicated worsening pneumonia. Worsening creatinine. We will hold all nephrotoxins. We will continue doxycycline and stop ceftriaxone. Patient started on a bicarb drip per nephrology. 05/13 pt was intubated on the night of 05/12. will continue current treatment. pt on steroids and abx. DVt ppx. H&H is low normal will continue to monitor 05/14 patient's urine output continues to decrease her creatinine continues to worsen. Patient may require dialysis. Patient's family called left message. Continue steroids for now. Patient received albumin. 05/15 patient continues to be intubated. She had a dialysis catheter placed today. We will continue steroids for now. Patient on DVT prophylaxis. 05/16 patient continues to be intubated. Dialysis catheter placed yesterday patient underwent dialysis. Not tolerating tube feeds will start patient on Reglan. Continue steroids for now. Will call family and update. 05/17 pt continues to be intubated. will continue dialysis for now. pt now tolerating her tube feeds. will continue to current tx and reglan. continue steroids for now. son Jimenez called and updated. pt's wbc elevated on broad abx for now. HH is 6.9 will monitor may need blood transfusion. 05/18 patient continues to be intubated. Will give 1 unit PRBC now. I did speak with the patient's son Jimenez yesterday updated him. Continues to have elevated WBCs patient on antibiotics.
[2020-05-19] MEDS: Metoclopramide HCl 10 MG/2 ML VIAL IVP SCH ×3 (01:00→17:53)
[2020-05-19] MEDS: Propofol 1,000 MG/100 ML VIAL IV PRN ×3 (01:10→22:57)
[2020-05-19] MEDS: Sodium Chloride 0.9% 1,000 ML IV SCH ×2 (03:48→15:35)
[2020-05-19 04:09] LABS: Mean Corpuscular HGB CONC 33.3 g/dL (32.0-36.0); Mean Corpuscular Hemoglobin 28.7 pg (27.0-31.0); Mean Corpuscular Volume 86.1 fL (78.0-98.0); Mean Platelet Volume 10.2 fL (7.4-10.4); Platelet Count 212 thou/uL (130-400); RBC Distribution Width 14.2 % (11.5-14.5); Red Blood Cell (RBC) Count 3.49 mill/uL (4.20-5.40); White Blood Cell (WBC) Count 24.7 thou/uL (4.8-10.8)
[2020-05-19 04:10] LABS: Hypochromia SLIGHT = 6-15 cells (100X) (0-5/hpf); Lymphocytes 2 % (21-51); MDiff Complete? YES; Monocytes 13 % (0-10); Neutrophil 85 % (42-75); Platelet Morphology Comment Appears Adequate
[2020-05-19 04:15] LABS: Anion Gap 20 mmol/L (10-20); BUN (Urea Nitrogen) 62 mg/dL (9.8-20.1); Calc. Creatinine Clearance 25 mL/min (70-130); Calcium 7.2 mg/dL (7.8-10.44); Carbon Dioxide 21 mmol/L (23-31); Chloride 98 mmol/L (98-107); Glucose 156 mg/dL (80-115); Potassium 4.5 mmol/L (3.5-5.1); Sodium 134 mmol/L (136-145)
[2020-05-19] MEDS: methylPREDNISolone Sod Succ 40 MG VIAL IVP SCH ×4 (05:27→23:24)
[2020-05-19] MEDS: Mometasone 200 MCG/Formoterol 5 MCG 120 PUFF INHALER INH SCH ×2 (08:20→19:41)
[2020-05-19] MEDS: Famotidine 20 MG TAB PO SCH (09:20)
[2020-05-19] MEDS: hydrALAZINE 25 MG TAB PO SCH ×3 (09:20→21:01)
[2020-05-19] MEDS: Senokot 8.6 MG TAB PO SCH ×2 (09:20→21:01)
[2020-05-19] MEDS: Cholecalciferol (Vitamin D3) 400 UNITS TAB PO SCH (09:20)
[2020-05-19] MEDS: Ascorbic Acid 500 mg Chewable Tablet PO SCH (09:20)
[2020-05-19] MEDS: Atorvastatin Calcium 20 MG TAB PO SCH (09:21)
[2020-05-19] MEDS: Folic Acid 1 MG TAB PO SCH (09:21)
[2020-05-19] MEDS: Carvedilol 3.125 MG TAB PO SCH ×2 (09:21→15:35)
[2020-05-19] MEDS: Amlodipine 10 MG TAB PER TUBE SCH (09:21)
[2020-05-19] MEDS: ALPRAZolam 0.5 MG TAB PO SCH ×2 (09:23→21:02)
[2020-05-19] MEDS: Heparin 5,000 UNITS/ML VIAL SC SCH ×3 (09:25→21:02)
[2020-05-19] MEDS: Insulin Glargine 5 UNITS in Pre-Filled Syringe SC SCH (09:25)
--- NOTE | 2020-05-19 10:37 | RAD ---
Exam: Chest one view HISTORY:Respiratory distress. Ventilated patient. Comparison: 05/18/2020 FINDINGS: Lines and tubes: Stable endotracheal and nasogastric tube. Cardiac silhouette:Upper normal cardiac silhouette Aorta: Stable atherosclerosis Pulmonary vessels: Normal Costophrenic angles: Clear LUNGS: Stable multifocal interstitial and alveolar opacities. Pneumothorax: None Osseous abnormalities: None IMPRESSION: Stable multi lobar interstitial and alveolar opacities.
[2020-05-19] MEDS: Cefepime 1 GM in Sodium Chloride 0.9% 100 ML IVPB SCH (10:46)
[2020-05-19] MEDS: Insulin Regular 300 UNITS/3 ML VIAL SC PRN ×2 (10:47→17:54)
--- NOTE | 2020-05-19 11:55 | PRG ---
DATE OF SERVICE: 05/19/2020 SUBJECTIVE: The patient on COVID isolation, remains in ICU, intubated. OBJECTIVE: GENERAL: This is a well-built female, remains intubated. VITAL SIGNS: Temperature 98.6, pulse 66, respiratory rate 18, blood pressure 155/72. HEENT: Intubated. NEUROLOGICAL: Sedated Patient on COVID isolation. LABORATORY DATA: Potassium 4.5, BUN is 62, creatinine is 2.9. ASSESSMENT AND PLAN: 1. Acute kidney injury on chronic kidney disease stage 4, hemodialysis dependent. No dialysis today. Dialysis over the weekend. Plan for dialysis Thursday, Thursday, Thursday. 2. Anemia, status post transfusion. 3. Acute hypoxic respiratory failure. Oxygen requirements little bit down. 4. COVID-19 pneumonia. 5. Edema. 6. Hypertension. We will continue on dialysis as tolerated. Job ID: [id number] MTDD
[2020-05-19] MEDS: fentaNYL Citrate/PF 2,000 MCG in Sodium Chloride 0.9% 60 ML IV SCH (12:56)
--- NOTE | 2020-05-19 17:51 | PRG ---
DATE OF SERVICE: 05/19/2020 OBJECTIVE: VITAL SIGNS: Heart rates in the 70s. FiO2 is 40%, blood pressure is 168/83, respiratory rates in the teens. GENERAL: The patient is hemodynamically stable. LUNGS: Clear. HEART: Regular rhythm. ABDOMEN: Soft. EXTREMITIES: Without edema. LABORATORY DATA: White count 24.7, hemoglobin 10, platelets 212. Sodium 134, potassium 4.5, chloride 90, bicarb 29, BUN 62, creatinine 2.99 down from 3.83. IMPRESSION: 1. COVID pneumonia. 2. Improving renal insufficiency. 3. Anemia, requiring transfusion. Continue with supportive care. The patient appears to be slowly improved. Critical care time 30 min. Job ID: [id number] MTDD
[2020-05-20] MEDS: Metoclopramide HCl 10 MG/2 ML VIAL IVP SCH ×3 (02:06→16:54)
[2020-05-20] MEDS: Sodium Chloride 0.9% 1,000 ML IV SCH ×3 (05:08→23:41)
[2020-05-20] MEDS: methylPREDNISolone Sod Succ 40 MG VIAL IVP SCH ×4 (05:09→23:41)
[2020-05-20] MEDS: Propofol 1,000 MG/100 ML VIAL IV PRN ×3 (05:13→20:48)
[2020-05-20] MEDS: Insulin Regular 300 UNITS/3 ML VIAL SC PRN ×4 (06:05→23:45)
[2020-05-20 07:13] LABS: Hemoglobin 10.7 g/dL (12.0-16.0); Mean Corpuscular HGB CONC 32.7 g/dL (32.0-36.0); Mean Corpuscular Hemoglobin 28.3 pg (27.0-31.0); Mean Corpuscular Volume 86.5 fL (78.0-98.0); Mean Platelet Volume 10.8 fL (7.4-10.4); Platelet Count 221 thou/uL (130-400); RBC Distribution Width 14.5 % (11.5-14.5); Red Blood Cell (RBC) Count 3.79 mill/uL (4.20-5.40)
[2020-05-20 07:29] LABS: Anion Gap 20 mmol/L (10-20); BUN (Urea Nitrogen) 84 mg/dL (9.8-20.1); Calc. Creatinine Clearance 19 mL/min (70-130); Calcium 7.5 mg/dL (7.8-10.44); Carbon Dioxide 20 mmol/L (23-31); Chloride 97 mmol/L (98-107); Glucose 186 mg/dL (80-115); Potassium 4.4 mmol/L (3.5-5.1); Sodium 133 mmol/L (136-145)
[2020-05-20] MEDS: Mometasone 200 MCG/Formoterol 5 MCG 120 PUFF INHALER INH SCH ×2 (08:17→18:58)
[2020-05-20 08:40] LABS: Eosinophils 1 % (0-10); Monocytes 10 % (0-10)
[2020-05-20 08:41] LABS: Band 4 % (5-11); Lymphocytes 25 % (21-51); Neutrophil 60 % (42-75)
--- NOTE | 2020-05-20 08:52 | PDOC.HOSPP ---
- Subjective Encounter Date: 05/19/20 Encounter Time: 11:00 Subjective: pt intubated - Objective Vital Signs & Weight: Vital Signs (12 hours) Temp Pulse Resp BP Pulse Ox 05/20/20 08:17 73 05/20/20 08:00 13 98 05/20/20 06:00 14 05/20/20 05:00 99.6 F 05/20/20 04:00 18 05/20/20 02:48 70 05/20/20 02:00 99.8 F H 17 05/20/20 00:00 99.6 F 18 05/19/20 23:46 64 05/19/20 23:00 99.4 F 05/19/20 22:00 14 05/19/20 21:01 64 153/76 H 05/19/20 21:00 98.7 F Weight Admit Weight 186 lb 4.8 oz Weight 197 lb 1.492 oz Most Recent Monitor Data Heart Rate from ECG 68 NIBP 157/78 NIBP BP-Mean 104 Respiration from ECG 14 SpO2 100 I&O: 05/19/20 05/20/20 05/21/20 06:59 06:59 06:59 Intake Total 2314 3456.6 Output Total 40 30 Balance 2274 3426.6 Result Diagrams: 05/21/20 04:35 05/21/20 04:35 Additional Labs: Accuchecks 05/19/20 05/19/20 05/19/20 21:07 15:43 09:57 POC Glucose 153 H 196 H 193 H Hospitalist ROS - Review of Systems Other: Patient intubated - Medication Medications: Active Medications Generic Name Dose Route Start Last Admin Trade Name Freq PRN Reason Stop Dose Admin Acetaminophen 650 mg 05/05/20 03:50 05/05/20 04:19 Acetaminophen 325 Mg Tab PO 650 mg Q4H PRN Administration Mild Pain Albuterol Sulfate 2 puff 05/05/20 03:59 05/05/20 07:40 Albuterol 200 Puff (6.7gm Inhaler) INH 2 puff [id number] PRN Administration Wheezing Alprazolam 0.5 mg 05/02/20 21:00 05/19/20 21:02 Alprazolam 0.5 Mg Tab PO 0.5 mg BID ESTER Administration Amlodipine Besylate 10 mg 05/15/20 09:00 05/19/20 09:21 Amlodipine 10 Mg Tab PER TUBE 10 mg DAILY ESTER Administration Ascorbic Acid 1,000 mg 05/02/20 09:00 05/19/20 09:20 Ascorbic Acid 500 Mg Chewable Tablet PO 1,000 mg DAILY ESTER Administration Atorvastatin Calcium 20 mg 05/09/20 09:00 05/19/20 09:21 Atorvastatin Calcium 20 Mg Tab PO 20 mg DAILY ESTER Administration Carvedilol 3.125 mg 05/06/20 17:00 05/19/20 15:35 Carvedilol 3.125 Mg Tab PO 3.125 mg BID- ESTER Administration Cholecalciferol 400 units 05/02/20 09:00 05/19/20 09:20 Cholecalciferol (Vitamin D3) 400 Units Tab PO 400 units DAILY ESTER Administration Famotidine 20 mg 05/19/20 09:00 05/19/20 09:20 Famotidine 20 Mg Tab PO 20 mg DAILY ESTER Administration Folic Acid 1 mg 05/03/20 09:00 05/19/20 09:21 Folic Acid 1 Mg Tab PO 1 mg DAILY ESTER Administration Heparin Sodium (Porcine) 5,000 units 05/02/20 09:00 05/19/20 21:02 Heparin 5,000 Units/Ml Vial SC 5,000 units TID ESTER Administration Hydralazine HCl 75 mg 05/08/20 09:00 05/19/20 21:01 Hydralazine 25 Mg Tab PO 75 mg TID ESTER Administration Insulin Glargine 5 units/ 0.05 mls @ 0 mls/hr 05/13/20 09:00 05/19/20 09:25 Miscellaneous Medication SC 0.05 mls QAM ESTER Administration Fentanyl Citrate 2,000 mcg/ 100 mls @ 0 mls/hr 05/12/20 21:30 05/19/20 12:56 Sodium Chloride IV 06/11/20 21:30 100 mls INF ESTER Administration Protocol Per Protocol Sodium Chloride 1,000 mls @ 100 mls/hr 05/13/20 09:30 05/20/20 05:08 Normal Saline 0.9% IV 1,000 mls .Q10H ESTER Administration Cefepime HCl 1 gm/ Sodium 100 mls @ 200 mls/hr 05/15/20 10:00 05/19/20 10:46 Chloride IVPB 100 mls 1000 ESTER Administration Insulin Human Regular 0 units 05/13/20 09:28 05/20/20 06:05 Insulin Regular 300 Units/3 Ml Vial SC 2 unit .MODERATE SLIDING SC PRN Administration Moderate Correctional Scale Lorazepam 0.5 mg 05/12/20 19:07 05/12/20 19:24 Lorazepam 2 Mg/Ml Vial SLOW IVP 0.5 mg BIDPRN PRN Administration .ANXIETY Lorazepam 2 mg 05/12/20 21:30 05/16/20 15:57 Lorazepam 2 Mg/Ml Vial SLOW IVP 06/11/20 21:30 2 mg Q1H PRN Administration Breakthrough agitation Magnesium Citrate 300 ml 05/02/20 19:40 05/04/20 08:13 Magnesium Citrate 300 Ml Bot PO 300 ml DAILYPRN PRN Administration Constipation Methylprednisolone Sodium Succinate 40 mg 05/15/20 12:00 05/20/20 05:09 Methylprednisolone Sod Succ 40 Mg Vial IVP 40 mg Q6HR ESTER Administration Metoclopramide HCl 10 mg 05/16/20 18:00 05/20/20 02:06 Metoclopramide Hcl 10 Mg/2 Ml Vial IVP 10 mg Q8H ESTER Administration Mometasone Furoate/Formoterol Fumar 2 puff 05/09/20 18:30 05/20/20 08:17 Mometasone 200 Mcg/Formoterol 5 Mcg 120 Puff Inhaler INH 2 puff BID-RT ESTER Administration Ondansetron HCl 4 mg 05/03/20 17:50 05/09/20 20:49 Ondansetron Pf 4 Mg/2 Ml Vial IVP 4 mg Q6H PRN Administration Nausea/Vomiting Ondansetron HCl 4 mg 05/08/20 01:15 05/08/20 14:20 Ondansetron Odt 4 Mg Tab PO 4 mg Q6H PRN Administration Nausea/Vomiting Propofol 1,000 mg 05/12/20 21:30 05/20/20 05:13 Propofol 1,000 Mg/100 Ml Vial IV 06/11/20 21:30 1,000 mg INF PRN Administration TO ACHIEVE GOAL RASS Protocol Senna 2 tab 05/08/20 21:00 05/19/20 21:01 Senokot 8.6 Mg Tab PO 2 tab BID ESTER Administration Zolpidem Tartrate 10 mg 05/02/20 19:39 05/11/20 21:08 Zolpidem Tartrate 5 Mg Tab PO 10 mg HSPRN PRN Administration Insomnia - Exam Neck: negative: supple, symmetric, no JVD, no thyromegaly, no lymphadenopathy, no carotid bruit, JVD Heart: negative: RRR, no murmur, no gallops, no rubs, normal peripheral pulses, irregular, diminshed peripheral pulses, murmur present, II/IV, III/IV Respiratory: negative: CTAB, no wheezes, no rales, no ronchi, normal chest expansion, no tachypnea, normal percussion, rales, rhonchi, tachypneic, wheezes Gastrointestinal: negative: soft, non-tender, non-distended, normal bowel sounds, no palpable masses, no hepatomegaly, no splenomegaly, no bruit, no guarding, no rigidity, tender to palpation, distended, diminished bowl sounds, voluntary guarding Hosp A/P - Plan (1) Pneumonia due to COVID-19 virus Code(s): U07.1 - COVID-19; J12.89 - OTHER VIRAL PNEUMONIA Status: Acute (2) Acute kidney injury superimposed on CKD Code(s): N17.9 - ACUTE KIDNEY FAILURE, UNSPECIFIED; N18.9 - CHRONIC KIDNEY DISEASE, UNSPECIFIED Status: Acute (3) Acute respiratory failure with hypoxia Code(s): J96.01 - ACUTE RESPIRATORY FAILURE WITH HYPOXIA Status: Acute (4) HTN (hypertension) Code(s): I10 - ESSENTIAL (PRIMARY) HYPERTENSION Status: Chronic Qualifiers: Hypertension type: essential hypertension Qualified Code(s): I10 - Essential (primary) hypertension (5) Dyslipidemia Code(s): E78.5 - HYPERLIPIDEMIA, UNSPECIFIED Status: Chronic (6) Peripheral neuropathy Code(s): G62.9 - POLYNEUROPATHY, UNSPECIFIED Status: Chronic Qualifiers: Peripheral neuropathy type: polyneuropathy, unspecified Qualified Code(s): G62.9 - Polyneuropathy, unspecified (7) Anemia of renal disease Code(s): D63.1 - ANEMIA IN CHRONIC KIDNEY DISEASE Status: Chronic (8) Metabolic acidosis Code(s): E87.2 - ACIDOSIS Status: Resolved - Plan is on high flow, continue dexamethasone. 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 on coreg and hydralazine, she also takes ambien chronically for insomnia at 10mg progressive worsening of renal function due to poor oral intake and likely contribution from covid, Creatinine around 2.5 at baseline is at high risk for complications with multiple comorbid conditions will need rehab/swing bed for dc plan, agrees to go to [facility] swing bed. off clonidine and is on lower dose coreg due to bradycardia with rates dipping into 40's which has resolved now. encourage po intake, is not eating much despite changing to regular diet patient has consented to talk to her daughter, d/w and gave full updates and guarded prognosis 05/10, 05/2020. 05/12 patient appeared little bit more confused today ABG indicated significant hypoxia. Her high flow was titrated accordingly per respiratory therapy. Patient continues not to eat very much. Patient encouraged to eat or drink supplements. Chest x-ray indicated worsening pneumonia. Worsening creatinine. We will hold all nephrotoxins. We will continue doxycycline and stop ceftriaxone. Patient started on a bicarb drip per nephrology. 05/13 pt was intubated on the night of 05/12. will continue current treatment. pt on steroids and abx. DVt ppx. H&H is low normal will continue to monitor 05/14 patient's urine output continues to decrease her creatinine continues to worsen. Patient may require dialysis. Patient's family called left message. Continue steroids for now. Patient received albumin. 05/15 patient continues to be intubated. She had a dialysis catheter placed today. We will continue steroids for now. Patient on DVT prophylaxis. 05/16 patient continues to be intubated. Dialysis catheter placed yesterday patient underwent dialysis. Not tolerating tube feeds will start patient on Reglan. Continue steroids for now. Will call family and update. 05/17 pt continues to be intubated. will continue dialysis for now. pt now tolerating her tube feeds. will continue to current tx and reglan. continue steroids for now. son Jimenez called and updated. pt's wbc elevated on broad abx for now. HH is 6.9 will monitor may need blood transfusion. 05/18 patient continues to be intubated. Will give 1 unit PRBC now. I did speak with the patient's son Jimenez yesterday updated him. Continues to have elevated WBCs patient on antibiotics. 05/19 patient continues to be intubated. H&H stable. Continue antibiotics. DVT prophylaxis SCD.
--- NOTE | 2020-05-20 08:52 | RAD ---
RADIOGRAPH CHEST 1 VIEW: DATE: 05/20/2020 TIME: 6:37 AM HISTORY: 70-year-old female with respiratory failure COMPARISON: 05/19/2020 FINDINGS: Endotracheal tube at mid thoracic trachea. Esophagogastric tube. Diffuse bilateral mild to moderate nodular infiltrates appear improved, but that is probably due to o verexposed lungs on the current study. Consolidation at bilateral lung bases. No pneumothorax. IMPRESSION: 1): COVID 19 bilateral pneumonia. 2) probably no interval change
[2020-05-20] MEDS: Carvedilol 3.125 MG TAB PO SCH ×2 (09:04→16:58)
[2020-05-20] MEDS: Senokot 8.6 MG TAB PO SCH ×2 (09:04→20:48)
[2020-05-20] MEDS: Folic Acid 1 MG TAB PO SCH (09:05)
[2020-05-20] MEDS: Heparin 5,000 UNITS/ML VIAL SC SCH ×3 (09:05→20:47)
[2020-05-20] MEDS: Amlodipine 10 MG TAB PER TUBE SCH (09:05)
[2020-05-20] MEDS: Atorvastatin Calcium 20 MG TAB PO SCH (09:05)
[2020-05-20] MEDS: hydrALAZINE 25 MG TAB PO SCH ×3 (09:05→20:47)
[2020-05-20] MEDS: Insulin Glargine 5 UNITS in Pre-Filled Syringe SC SCH (09:06)
[2020-05-20] MEDS: Cholecalciferol (Vitamin D3) 400 UNITS TAB PO SCH (09:06)
[2020-05-20] MEDS: ALPRAZolam 0.5 MG TAB PO SCH ×2 (09:06→20:50)
[2020-05-20] MEDS: Famotidine 20 MG TAB PO SCH (09:06)
[2020-05-20] MEDS: Ascorbic Acid 500 mg Chewable Tablet PO SCH (09:06)
[2020-05-20 09:17] LABS: MDiff Complete? YES; Platelet Morphology Comment Appears Adequate; RBC Morphology Normal
[2020-05-20] MEDS: Cefepime 1 GM in Sodium Chloride 0.9% 100 ML IVPB SCH (09:26)
--- NOTE | 2020-05-20 12:08 | PRG ---
DATE OF SERVICE: 05/20/2020 SUBJECTIVE: The patient is on COVID isolation, remains in ICU, intubated. Bedside nurse updated me about the situation. OBJECTIVE: GENERAL: This is a well-built female, intubated. VITAL SIGNS: Temperature 99.6, pulse 68, respiratory rate 18, blood pressure 153/76. pt on covid isolation. LABORATORY DATA: Potassium 4.4, BUN is 84, and creatinine is 3.9. ASSESSMENT AND PLAN: 1. Acute kidney injury on chronic kidney disease, stage 4, hemodialysis dependent. No dialysis today. We will plan for tomorrow Thursday, Thursday, and Thursday. 2. Anemia, status post transfusion. Monitor hemoglobin. 3. Acute hypoxic respiratory failure. 4. COVID-19 pneumonia. 5. Edema. 6. History of hypertension. Continue supportive care. We will continue dialysis as tolerated. Job ID: [id number] [facility]
[2020-05-20] MEDS: fentaNYL Citrate/PF 2,000 MCG in Sodium Chloride 0.9% 60 ML IV SCH (13:29)
--- NOTE | 2020-05-20 16:46 | PDOC.HOSPP ---
- Subjective Encounter Date: 05/20/20 Encounter Time: 10:30 Subjective: pt intubated - Objective Vital Signs & Weight: Vital Signs (12 hours) Temp Pulse Resp Pulse Ox 05/20/20 15:30 67 05/20/20 13:28 68 05/20/20 10:38 68 05/20/20 10:00 14 05/20/20 09:05 73 05/20/20 08:17 73 05/20/20 08:00 98.9 F 13 98 05/20/20 06:00 14 05/20/20 05:00 99.6 F 05/20/20 04:00 18 Weight Admit Weight 186 lb 4.8 oz Weight 197 lb 1.492 oz Most Recent Monitor Data Heart Rate from ECG 64 NIBP 122/65 NIBP BP-Mean 84 Respiration from ECG 15 SpO2 100 I&O: 05/19/20 05/20/20 05/21/20 06:59 06:59 06:59 Intake Total 2314 3456.6 60 Output Total 40 30 Balance 2274 3426.6 60 Result Diagrams: 05/21/20 04:35 05/21/20 04:35 Additional Labs: Accuchecks 05/19/20 05/19/20 21:07 15:43 POC Glucose 153 H 196 H Hospitalist ROS - Review of Systems Other: Patient intubated - Medication Medications: Active Medications Generic Name Dose Route Start Last Admin Trade Name Freq PRN Reason Stop Dose Admin Acetaminophen 650 mg 05/05/20 03:50 05/05/20 04:19 Acetaminophen 325 Mg Tab PO 650 mg Q4H PRN Administration Mild Pain Albuterol Sulfate 2 puff 05/05/20 03:59 05/05/20 07:40 Albuterol 200 Puff (6.7gm Inhaler) INH 2 puff [id number] PRN Administration Wheezing Alprazolam 0.5 mg 05/02/20 21:00 05/20/20 09:06 Alprazolam 0.5 Mg Tab PO 0.5 mg BID ESTER Administration Amlodipine Besylate 10 mg 05/15/20 09:00 05/20/20 09:05 Amlodipine 10 Mg Tab PER TUBE 10 mg DAILY ESTER Administration Ascorbic Acid 1,000 mg 05/02/20 09:00 05/20/20 09:06 Ascorbic Acid 500 Mg Chewable Tablet PO 1,000 mg DAILY ESTER Administration Atorvastatin Calcium 20 mg 05/09/20 09:00 05/20/20 09:05 Atorvastatin Calcium 20 Mg Tab PO 20 mg DAILY ESTER Administration Carvedilol 3.125 mg 05/06/20 17:00 05/20/20 09:04 Carvedilol 3.125 Mg Tab PO 3.125 mg BID-WM ESTER Administration Cholecalciferol 400 units 05/02/20 09:00 05/20/20 09:06 Cholecalciferol (Vitamin D3) 400 Units Tab PO 400 units DAILY ESTER Administration Famotidine 20 mg 05/19/20 09:00 05/20/20 09:06 Famotidine 20 Mg Tab PO 20 mg DAILY ESTER Administration Folic Acid 1 mg 05/03/20 09:00 05/20/20 09:05 Folic Acid 1 Mg Tab PO 1 mg DAILY ESTER Administration Heparin Sodium (Porcine) 5,000 units 05/02/20 09:00 05/20/20 13:28 Heparin 5,000 Units/Ml Vial SC 5,000 units TID ESTER Administration Hydralazine HCl 75 mg 05/08/20 09:00 05/20/20 13:28 Hydralazine 25 Mg Tab PO 75 mg TID ESTER Administration Insulin Glargine 5 units/ 0.05 mls @ 0 mls/hr 05/13/20 09:00 05/20/20 09:06 Miscellaneous Medication SC 0.05 mls QAM ESTER Administration Fentanyl Citrate 2,000 mcg/ 100 mls @ 0 mls/hr 05/12/20 21:30 05/20/20 13:29 Sodium Chloride IV 06/11/20 21:30 100 mls INF ESTER Administration Protocol Per Protocol Sodium Chloride 1,000 mls @ 100 mls/hr 05/13/20 09:30 05/20/20 13:28 Normal Saline 0.9% IV 1,000 mls .Q10H ESTER Administration Cefepime HCl 1 gm/ Sodium 100 mls @ 200 mls/hr 05/15/20 10:00 05/20/20 09:26 Chloride IVPB 100 mls 1000 ESTER Administration Insulin Human Regular 0 units 05/13/20 09:28 05/20/20 06:05 Insulin Regular 300 Units/3 Ml Vial SC 2 unit .MODERATE SLIDING SC PRN Administration Moderate Correctional Scale Lorazepam 0.5 mg 05/12/20 19:07 05/12/20 19:24 Lorazepam 2 Mg/Ml Vial SLOW IVP 0.5 mg BIDPRN PRN Administration .ANXIETY Lorazepam 2 mg 05/12/20 21:30 05/16/20 15:57 Lorazepam 2 Mg/Ml Vial SLOW IVP 06/11/20 21:30 2 mg Q1H PRN Administration Breakthrough agitation Magnesium Citrate 300 ml 05/02/20 19:40 05/04/20 08:13 Magnesium Citrate 300 Ml Bot PO 300 ml DAILYPRN PRN Administration Constipation Methylprednisolone Sodium Succinate 40 mg 05/15/20 12:00 05/20/20 13:28 Methylprednisolone Sod Succ 40 Mg Vial IVP 40 mg Q6HR ESTER Administration Metoclopramide HCl 10 mg 05/16/20 18:00 05/20/20 09:26 Metoclopramide Hcl 10 Mg/2 Ml Vial IVP 10 mg Q8H ESTER Administration Mometasone Furoate/Formoterol Fumar 2 puff 05/09/20 18:30 05/20/20 08:17 Mometasone 200 Mcg/Formoterol 5 Mcg 120 Puff Inhaler INH 2 puff BID-RT ESTER Administration Ondansetron HCl 4 mg 05/03/20 17:50 05/09/20 20:49 Ondansetron Pf 4 Mg/2 Ml Vial IVP 4 mg Q6H PRN Administration Nausea/Vomiting Ondansetron HCl 4 mg 05/08/20 01:15 05/08/20 14:20 Ondansetron Odt 4 Mg Tab PO 4 mg Q6H PRN Administration Nausea/Vomiting Propofol 1,000 mg 05/12/20 21:30 05/20/20 13:29 Propofol 1,000 Mg/100 Ml Vial IV 06/11/20 21:30 1,000 mg INF PRN Administration TO ACHIEVE GOAL RASS Protocol Senna 2 tab 05/08/20 21:00 05/20/20 09:04 Senokot 8.6 Mg Tab PO 2 tab BID ESTER Administration Zolpidem Tartrate 10 mg 05/02/20 19:39 05/11/20 21:08 Zolpidem Tartrate 5 Mg Tab PO 10 mg HSPRN PRN Administration Insomnia - Exam Heart: negative: RRR, no murmur, no gallops, no rubs, normal peripheral pulses, irregular, diminshed peripheral pulses, murmur present, II/IV, III/IV Respiratory: negative: CTAB, no wheezes, no rales, no ronchi, normal chest expansion, no tachypnea, normal percussion, rales, rhonchi, tachypneic, wheezes Gastrointestinal: negative: soft, non-tender, non-distended, normal bowel sounds, no palpable masses, no hepatomegaly, no splenomegaly, no bruit, no guarding, no rigidity, tender to palpation, distended, diminished bowl sounds, voluntary guarding Hosp A/P - Plan (1) Pneumonia due to COVID-19 virus Code(s): U07.1 - COVID-19; J12.89 - OTHER VIRAL PNEUMONIA Status: Acute (2) Acute kidney injury superimposed on CKD Code(s): N17.9 - ACUTE KIDNEY FAILURE, UNSPECIFIED; N18.9 - CHRONIC KIDNEY DISEASE, UNSPECIFIED Status: Acute (3) Acute respiratory failure with hypoxia Code(s): J96.01 - ACUTE RESPIRATORY FAILURE WITH HYPOXIA Status: Acute (4) HTN (hypertension) Code(s): I10 - ESSENTIAL (PRIMARY) HYPERTENSION Status: Chronic Qualifiers: Hypertension type: essential hypertension Qualified Code(s): I10 - Essential (primary) hypertension (5) Dyslipidemia Code(s): E78.5 - HYPERLIPIDEMIA, UNSPECIFIED Status: Chronic (6) Peripheral neuropathy Code(s): G62.9 - POLYNEUROPATHY, UNSPECIFIED Status: Chronic Qualifiers: Peripheral neuropathy type: polyneuropathy, unspecified Qualified Code(s): G62.9 - Polyneuropathy, unspecified (7) Anemia of renal disease Code(s): D63.1 - ANEMIA IN CHRONIC KIDNEY DISEASE Status: Chronic (8) Metabolic acidosis Code(s): E87.2 - ACIDOSIS Status: Resolved - Plan is on high flow, continue dexamethasone. 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 on coreg and hydralazine, she also takes ambien chronically for insomnia at 10mg progressive worsening of renal function due to poor oral intake and likely contribution from covid, Creatinine around 2.5 at baseline is at high risk for complications with multiple comorbid conditions will need rehab/swing bed for dc plan, agrees to go to [facility] swing bed. off clonidine and is on lower dose coreg due to bradycardia with rates dipping into 40's which has resolved now. encourage po intake, is not eating much despite changing to regular diet patient has consented to talk to her daughter, d/w and gave full updates and guarded prognosis 05/10, 05/2020. 05/12 patient appeared little bit more confused today ABG indicated significant hypoxia. Her high flow was titrated accordingly per respiratory therapy. Patient continues not to eat very much. Patient encouraged to eat or drink supplements. Chest x-ray indicated worsening pneumonia. Worsening creatinine. We will hold all nephrotoxins. We will continue doxycycline and stop ceftriaxone. Patient started on a bicarb drip per nephrology. 05/13 pt was intubated on the night of 05/12. will continue current treatment. pt on steroids and abx. DVt ppx. H&H is low normal will continue to monitor 05/14 patient's urine output continues to decrease her creatinine continues to worsen. Patient may require dialysis. Patient's family called left message. Continue steroids for now. Patient received albumin. 05/15 patient continues to be intubated. She had a dialysis catheter placed today. We will continue steroids for now. Patient on DVT prophylaxis. 05/16 patient continues to be intubated. Dialysis catheter placed yesterday patient underwent dialysis. Not tolerating tube feeds will start patient on Reglan. Continue steroids for now. Will call family and update. 05/17 pt continues to be intubated. will continue dialysis for now. pt now tolerating her tube feeds. will continue to current tx and reglan. continue steroids for now. son Jimenez called and updated. pt's wbc elevated on broad abx for now. HH is 6.9 will monitor may need blood transfusion. 05/18 patient continues to be intubated. Will give 1 unit PRBC now. I did speak with the patient's son Jimenez yesterday updated him. Continues to have elevated WBCs patient on antibiotics. 05/19 patient continues to be intubated. H&H low stable 05/20 patient's son called and updated. Patient's oxygen saturations decreased to 40% FiO2. We will continue to monitor. H&H is low stable. Continues to h ave white count. We will continue antibiotics.
[2020-05-21] MEDS: Metoclopramide HCl 10 MG/2 ML VIAL IVP SCH ×3 (03:00→18:33)
[2020-05-21] MEDS: Propofol 1,000 MG/100 ML VIAL IV PRN (03:43)
[2020-05-21] MEDS: Insulin Regular 300 UNITS/3 ML VIAL SC PRN ×3 (04:00→22:34)
[2020-05-21 05:10] LABS: Anion Gap 23 mmol/L (10-20); BUN (Urea Nitrogen) 105 mg/dL (9.8-20.1); Calc. Creatinine Clearance 16 mL/min (70-130); Calcium 7.3 mg/dL (7.8-10.44); Carbon Dioxide 17 mmol/L (23-31); Chloride 100 mmol/L (98-107); Glucose 170 mg/dL (80-115); Potassium 4.7 mmol/L (3.5-5.1); Sodium 135 mmol/L (136-145)
[2020-05-21 05:21] LABS: Band 6 % (5-11); Hemoglobin 9.6 g/dL (12.0-16.0); Hypochromia SLIGHT = 6-15 cells (100X) (0-5/hpf); Lymphocytes 3 % (21-51); MDiff Complete? YES; Mean Corpuscular HGB CONC 33.3 g/dL (32.0-36.0); Mean Corpuscular Hemoglobin 28.8 pg (27.0-31.0); Mean Corpuscular Volume 86.6 fL (78.0-98.0); Mean Platelet Volume 10.6 fL (7.4-10.4); Monocytes 1 % (0-10); Neutrophil 90 % (42-75); Platelet Count 182 thou/uL (130-400); Platelet Morphology Comment Appears Adequate; RBC Distribution Width 14.4 % (11.5-14.5); Red Blood Cell (RBC) Count 3.31 mill/uL (4.20-5.40); White Blood Cell (WBC) Count 20.7 thou/uL (4.8-10.8)
--- NOTE | 2020-05-21 05:42 | PRG ---
DATE OF SERVICE: 05/20/2020 OBJECTIVE: GENERAL: Ms. Reed is in no distress. VITAL SIGNS: Heart rate is in the 60s, FiO2 is at 45%. Decreased her ventilatory rate to 6 and decreased her PEEP to 5 today. Blood pressure 144/67, respiratory rate is 22, oximetry is 95%. LUNGS: Clear. HEART: Regular rhythm. ABDOMEN: Soft. LABORATORY DATA: White count 24, hemoglobin 10.7, platelets 221. Sodium 133, potassium 4.4, chloride 97, bicarb 20, BUN 8.4, creatinine 3.97 and creatinine was 2.99 yesterday. Chest radiograph is slightly over-penetrated, but appears stable. IMPRESSION: 1. COVID pneumonia, clinically slowly improving. 2. Acute on top of chronic kidney disease, on dialysis. There is no dialysis today. She will be dialyzed tomorrow. She might be weanable after dialysis in the morning. She had 2 days of symptoms on presentation and tested positive on the , which would make her 19 days into this.In theory, her isolation can be discontinued in the morning. Critical care time 30 min. Job ID: [id number] [facility]
[2020-05-21] MEDS: methylPREDNISolone Sod Succ 40 MG VIAL IVP SCH ×3 (05:48→18:34)
[2020-05-21] MEDS: Mometasone 200 MCG/Formoterol 5 MCG 120 PUFF INHALER INH SCH ×2 (08:32→19:13)
[2020-05-21] MEDS: Ascorbic Acid 500 mg Chewable Tablet PO SCH (08:55)
[2020-05-21] MEDS: Heparin 5,000 UNITS/ML VIAL SC SCH ×3 (08:55→20:11)
[2020-05-21] MEDS: Cholecalciferol (Vitamin D3) 400 UNITS TAB PO SCH (08:56)
[2020-05-21] MEDS: Carvedilol 3.125 MG TAB PO SCH ×2 (08:56→16:23)
[2020-05-21] MEDS: Folic Acid 1 MG TAB PO SCH (08:56)
[2020-05-21] MEDS: Atorvastatin Calcium 20 MG TAB PO SCH (08:56)
[2020-05-21] MEDS: Senokot 8.6 MG TAB PO SCH ×2 (08:56→20:10)
[2020-05-21] MEDS: hydrALAZINE 25 MG TAB PO SCH ×3 (08:56→20:06)
[2020-05-21] MEDS: Amlodipine 10 MG TAB PER TUBE SCH (08:57)
[2020-05-21] MEDS: Famotidine 20 MG TAB PO SCH (08:57)
--- NOTE | 2020-05-21 09:53 | PRG ---
DATE OF SERVICE: SUBJECTIVE: 70-year-old female being seen for end-stage kidney disease. The patient is intubated. On exam, the patient is resting. OBJECTIVE: General: The patient is awake and alert. Vital Signs: Afebrile, pulse 68, breathing at 16, blood pressure 153/72. HEENT: Head normocephalic and atraumatic. Eyes intact, no ulcers. Nose intact, no ulcers. Ears intact, no ulcers. Neck: Supple. No JVD. Chest: Symmetrical and clear. Cardiovascular: Shows S1 and S2, no rub, no murmur. Gastrointestinal: Abdomen is soft, bowel sounds positive. Extremities: Show no edema or ulcers. Skin: Shows no rash or petechiae. Musculoskeletal: Shows no joint swelling or stiffness. Genitourinary: Shows no Do or CVA tenderness. Neurologic: The patient is resting. LABORATORY DATA: Hemoglobin 9.6, bicarb 17. ASSESSMENT AND PLAN: 1. Stage 3 chronic kidney disease with planned dialysis. 2. Hypertension. 3. Anemia, stable. 4. The patient remains anuric. 5. We will plan dialysis in outpatient setting once the patient gets out of ICU. Job ID: [id number]
[2020-05-21] MEDS: Insulin Glargine 5 UNITS in Pre-Filled Syringe SC SCH (09:59)
[2020-05-21] MEDS: Cefepime 1 GM in Sodium Chloride 0.9% 100 ML IVPB SCH (10:03)
--- NOTE | 2020-05-21 12:10 | PRG ---
DATE OF SERVICE: 05/21/2020 SUBJECTIVE: Genia Reed is a 70-year-old female. Her x-ray looks much improved. OBJECTIVE: VITAL SIGNS: Pulse 68, blood pressure 153/72, on 40%, sats are . Her I's and O's have been negative. She is being dialyzed. CHEST: No wheezing, no crackles. CARDIAC: Normal S1. ABDOMEN: No masses. LABORATORY DATA: White count 20,000, creatinine is 4, BUN 105. Last chest x-ray showed much improvement in her pulmonary infiltrates. ASSESSMENT: Hoskins positive pneumonia; respiratory failure; renal failure, slowly improving. PLAN: We are probably going to try a weaning. Continue empiric antibiotics, supportive care, and steroids. One-half hour of critical time. Job ID: [id number]
[2020-05-21] MEDS ORDERED: Heparin 10,000 UNITS/ 10 ML VIAL ONE (13:00)
[2020-05-21] MEDS: Sodium Chloride 0.9% 1,000 ML IV SCH ×2 (15:00→17:58)
--- NOTE | 2020-05-21 15:57 | PDOC.HOSPP ---
- Subjective Encounter Date: 05/21/20 Encounter Time: 12:45 Subjective: Patient continues to be intubated - Objective Vital Signs & Weight: Vital Signs (12 hours) Temp Pulse Resp BP 05/21/20 14:47 89 127/95 H 05/21/20 14:00 28 H 05/21/20 12:00 97.8 F 15 05/21/20 11:18 76 174/61 H 05/21/20 10:00 20 05/21/20 08:36 68 153/72 H 05/21/20 08:00 98.3 F 25 H 05/21/20 06:00 22 H 05/21/20 04:00 98.9 F 17 Weight Admit Weight 186 lb 4.8 oz Weight 224 lb 13.944 oz Most Recent Monitor Data Heart Rate from ECG 85 NIBP 167/79 NIBP BP-Mean 108 Respiration from ECG 17 SpO2 100 I&O: 05/20/20 05/21/20 05/22/20 06:59 06:59 06:59 Intake Total 3456.6 3542 120 Output Total 30 30 5 Balance 3426.6 3512 115 Result Diagrams: 05/21/20 04:35 05/21/20 04:35 Additional Labs: Accuchecks 05/21/20 05/20/20 05/20/20 09:34 23:46 17:29 POC Glucose 153 H 203 H 190 H 05/20/20 05/20/20 05/18/20 10:02 05:16 23:18 POC Glucose 171 H 186 H 176 H Hospitalist ROS - Review of Systems Other: Intubated - Medication Medications: Active Medications Generic Name Dose Route Start Last Admin Trade Name Freq PRN Reason Stop Dose Admin Acetaminophen 650 mg 05/05/20 03:50 05/05/20 04:19 Acetaminophen 325 Mg Tab PO 650 mg Q4H PRN Administration Mild Pain Albuterol Sulfate 2 puff 05/05/20 03:59 05/05/20 07:40 Albuterol 200 Puff (6.7gm Inhaler) INH 2 puff [id number] PRN Administration Wheezing Amlodipine Besylate 10 mg 05/15/20 09:00 05/21/20 08:57 Amlodipine 10 Mg Tab PER TUBE 10 mg DAILY ESTER Administration Ascorbic Acid 1,000 mg 05/02/20 09:00 05/21/20 08:55 Ascorbic Acid 500 Mg Chewable Tablet PO 1,000 mg DAILY ESTER Administration Atorvastatin Calcium 20 mg 05/09/20 09:00 05/21/20 08:56 Atorvastatin Calcium 20 Mg Tab PO 20 mg DAILY ESTER Administration Carvedilol 3.125 mg 05/06/20 17:00 05/21/20 08:56 Carvedilol 3.125 Mg Tab PO 3.125 mg BID-WM ESTER Administration Cholecalciferol 400 units 05/02/20 09:00 05/21/20 08:56 Cholecalciferol (Vitamin D3) 400 Units Tab PO 400 units DAILY ESTER Administration Famotidine 20 mg 05/19/20 09:00 05/21/20 08:57 Famotidine 20 Mg Tab PO 20 mg DAILY ESTER Administration Folic Acid 1 mg 05/03/20 09:00 05/21/20 08:56 Folic Acid 1 Mg Tab PO 1 mg DAILY ESTER Administration Heparin Sodium (Porcine) 5,000 units 05/02/20 09:00 05/21/20 15:52 Heparin 5,000 Units/Ml Vial SC 5,000 units TID ESTER Administration Hydralazine HCl 75 mg 05/08/20 09:00 05/21/20 15:52 Hydralazine 25 Mg Tab PO 75 mg TID ESTER Administration Insulin Glargine 5 units/ 0.05 mls @ 0 mls/hr 05/13/20 09:00 05/21/20 09:59 Miscellaneous Medication SC 0.05 mls QAM ESTER Administration Fentanyl Citrate 2,000 mcg/ 100 mls @ 0 mls/hr 05/12/20 21:30 05/20/20 13:29 Sodium Chloride IV 06/11/20 21:30 100 mls INF ESTER Administration Protocol Per Protocol Sodium Chloride 1,000 mls @ 100 mls/hr 05/13/20 09:30 05/21/20 15:00 Normal Saline 0.9% IV 1,000 mls .Q10H ESTER Administration Cefepime HCl 1 gm/ Sodium 100 mls @ 200 mls/hr 05/15/20 10:00 05/21/20 10:03 Chloride IVPB 100 mls 1000 ESTER Administration Insulin Human Regular 0 units 05/13/20 09:28 05/21/20 04:00 Insulin Regular 300 Units/3 Ml Vial SC 2 unit .MODERATE SLIDING SC PRN Administration Moderate Correctional Scale Lorazepam 0.5 mg 05/12/20 19:07 05/12/20 19:24 Lorazepam 2 Mg/Ml Vial SLOW IVP 0.5 mg BIDPRN PRN Administration .ANXIETY Lorazepam 2 mg 05/12/20 21:30 05/16/20 15:57 Lorazepam 2 Mg/Ml Vial SLOW IVP 06/11/20 21:30 2 mg Q1H PRN Administration Breakthrough agitation Magnesium Citrate 300 ml 05/02/20 19:40 05/04/20 08:13 Magnesium Citrate 300 Ml Bot PO 300 ml DAILYPRN PRN Administration Constipation Methylprednisolone Sodium Succinate 40 mg 05/15/20 12:00 05/21/20 12:30 Methylprednisolone Sod Succ 40 Mg Vial IVP 40 mg Q6HR ESTER Administration Metoclopramide HCl 10 mg 05/16/20 18:00 05/21/20 10:05 Metoclopramide Hcl 10 Mg/2 Ml Vial IVP 10 mg Q8H ESTER Administration Mometasone Furoate/Formoterol Fumar 2 puff 05/09/20 18:30 05/21/20 08:32 Mometasone 200 Mcg/Formoterol 5 Mcg 120 Puff Inhaler INH 2 puff BID-RT ESTER Administration Ondansetron HCl 4 mg 05/03/20 17:50 05/09/20 20:49 Ondansetron Pf 4 Mg/2 Ml Vial IVP 4 mg Q6H PRN Administration Nausea/Vomiting Ondansetron HCl 4 mg 05/08/20 01:15 05/08/20 14:20 Ondansetron Odt 4 Mg Tab PO 4 mg Q6H PRN Administration Nausea/Vomiting Propofol 1,000 mg 05/12/20 21:30 05/21/20 03:43 Propofol 1,000 Mg/100 Ml Vial IV 06/11/20 21:30 1,000 mg INF PRN Administration TO ACHIEVE GOAL RASS Protocol Senna 2 tab 05/08/20 21:00 05/21/20 08:56 Senokot 8.6 Mg Tab PO 2 tab BID ESTER Administration Zolpidem Tartrate 10 mg 05/02/20 19:39 05/11/20 21:08 Zolpidem Tartrate 5 Mg Tab PO 10 mg HSPRN PRN Administration Insomnia - Exam Neck: negative: supple, symmetric, no JVD, no thyromegaly, no lymphadenopathy, no carotid bruit, JVD Heart: negative: RRR, no murmur, no gallops, no rubs, normal peripheral pulses, irregular, diminshed peripheral pulses, murmur present, II/IV, III/IV Respiratory: negative: CTAB, no wheezes, no rales, no ronchi, normal chest expansion, no tachypnea, normal percussion, rales, rhonchi, tachypneic, wheezes Gastrointestinal: negative: soft, non-tender, non-distended, normal bowel sounds, no palpable masses, no hepatomegaly, no splenomegaly, no bruit, no guarding, no rigidity, tender to palpation, distended, diminished bowl sounds, voluntary guarding Hosp A/P - Plan (1) Pneumonia due to COVID-19 virus Code(s): U07.1 - COVID-19; J12.89 - OTHER VIRAL PNEUMONIA Status: Acute (2) Acute kidney injury superimposed on CKD Code(s): N17.9 - ACUTE KIDNEY FAILURE, UNSPECIFIED; N18.9 - CHRONIC KIDNEY DISEASE, UNSPECIFIED Status: Acute (3) Acute respiratory failure with hypoxia Code(s): J96.01 - ACUTE RESPIRATORY FAILURE WITH HYPOXIA Status: Acute (4) HTN (hypertension) Code(s): I10 - ESSENTIAL (PRIMARY) HYPERTENSION Status: Chronic Qualifiers: Hypertension type: essential hypertension Qualified Code(s): I10 - Essential (primary) hypertension (5) Dyslipidemia Code(s): E78.5 - HYPERLIPIDEMIA, UNSPECIFIED Status: Chronic (6) Peripheral neuropathy Code(s): G62.9 - POLYNEUROPATHY, UNSPECIFIED Status: Chronic Qualifiers: Peripheral neuropathy type: polyneuropathy, unspecified Qualified Code(s): G62.9 - Polyneuropathy, unspecified (7) Anemia of renal disease Code(s): D63.1 - ANEMIA IN CHRONIC KIDNEY DISEASE Status: Chronic (8) Metabolic acidosis Code(s): E87.2 - ACIDOSIS Status: Resolved - Plan is on high flow, continue dexamethasone. 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 on coreg and hydralazine, she also takes ambien chronically for insomnia at 10mg progressive worsening of renal function due to poor oral intake and likely contribution from covid, Creatinine around 2.5 at baseline is at high risk for complications with multiple comorbid conditions will need rehab/swing bed for dc plan, agrees to go to [place] swing bed. off clonidine and is on lower dose coreg due to bradycardia with rates dipping into 40's which has resolved now. encourage po intake, is not eating much despite changing to regular diet patient has consented to talk to her daughter, d/w and gave full updates and guarded prognosis 05/10, 05/2020. 05/12 patient appeared little bit more confused today ABG indicated significant hypoxia. Her high flow was titrated accordingly per respiratory therapy. Patient continues not to eat very much. Patient encouraged to eat or drink supplements. Chest x-ray indicated worsening pneumonia. Worsening creatinine. We will hold all nephrotoxins. We will continue doxycycline and stop ceftriaxone. Patient started on a bicarb drip per nephrology. 05/13 pt was intubated on the night of 05/12. will continue current treatment. pt on steroids and abx. DVt ppx. H&H is low normal will continue to monitor 05/14 patient's urine output continues to decrease her creatinine continues to worsen. Patient may require dialysis. Patient's family called left message. Continue steroids for now. Patient received albumin. 05/15 patient continues to be intubated. She had a dialysis catheter placed today. We will continue steroids for now. Patient on DVT prophylaxis. 05/16 patient continues to be intubated. Dialysis catheter placed yesterday patient underwent dialysis. Not tolerating tube feeds will start patient on Reglan. Continue steroids for now. Will call family and update. 05/17 pt continues to be intubated. will continue dialysis for now. pt now tolerating her tube feeds. will continue to current tx and reglan. continue steroids for now. son Jimenez called and updated. pt's wbc elevated on broad abx for now. HH is 6.9 will monitor may need blood transfusion. 05/18 patient continues to be intubated. Will give 1 unit PRBC now. I did speak with the patient's son Jimenez yesterday updated him. Continues to have elevated WBCs patient on antibiotics. 05/19 patient continues to be intubated. H&H low stable 05/20 patient's son called and updated. Patient's oxygen saturations decreased to 40% FiO2. We will continue to monitor. H&H is low stable. Continues to have white count. We will continue antibiotics. 05/21 patient currently is doing well on 40% FiO2. Nurses decreasing sedation patient opening eyes but not following commands. H&H stable.
[2020-05-22] MEDS: methylPREDNISolone Sod Succ 40 MG VIAL IVP SCH ×5 (00:28→23:22)
[2020-05-22] MEDS: Sodium Chloride 0.9% 1,000 ML IV SCH ×3 (03:17→23:22)
[2020-05-22] MEDS: Metoclopramide HCl 10 MG/2 ML VIAL IVP SCH ×3 (03:53→18:10)
[2020-05-22 04:45] LABS: Band 6 % (5-11); Hemoglobin 9.7 g/dL (12.0-16.0); Hypochromia SLIGHT = 6-15 cells (100X) (0-5/hpf); MDiff Complete? YES; Mean Corpuscular HGB CONC 33.3 g/dL (32.0-36.0); Mean Corpuscular Hemoglobin 28.8 pg (27.0-31.0); Mean Corpuscular Volume 86.3 fL (78.0-98.0); Mean Platelet Volume 10.6 fL (7.4-10.4); Monocytes 9 % (0-10); Neutrophil 85 % (42-75); Platelet Count 199 thou/uL (130-400); Platelet Morphology Comment Appears Adequate; Red Blood Cell (RBC) Count 3.37 mill/uL (4.20-5.40); White Blood Cell (WBC) Count 25.1 thou/uL (4.8-10.8)
[2020-05-22 04:47] LABS: Anion Gap 20 mmol/L (10-20); BUN (Urea Nitrogen) 78 mg/dL (9.8-20.1); Calc. Creatinine Clearance 24 mL/min (70-130); Calcium 7.5 mg/dL (7.8-10.44); Carbon Dioxide 20 mmol/L (23-31); Chloride 99 mmol/L (98-107); Glucose 165 mg/dL (80-115); Potassium 3.7 mmol/L (3.5-5.1); Sodium 135 mmol/L (136-145)
[2020-05-22] MEDS: Mometasone 200 MCG/Formoterol 5 MCG 120 PUFF INHALER INH SCH ×2 (07:49→19:08)
--- NOTE | 2020-05-22 09:23 | PRG ---
DATE OF SERVICE: 05/22/2020 SUBJECTIVE: Genia Reed, this morning intubated in the vent. OBJECTIVE: VITAL SIGNS: Pulse 87, blood pressure 165/40, sats 98% on 40,% rate of 6, apparently no further sedation. CHEST: No wheezing. No rhonchi. CARDIAC: Normal S1, S2. ABDOMEN: No masses. LABORATORY DATA: White blood count , platelet count 195. ASSESSMENT: Increased chronic renal failure, lim positive pneumonia, respiratory failure. PLAN: Is trying to wean and extubate her hopefully in the next day or 2. Hold all sedation if possible. Continue Nutrition, PT. May consider a trial of extubation in the next 24 to 48 hours. TIME SPENT: One-half hour of critical time. Job ID: [id number]
[2020-05-22] MEDS: Insulin Glargine 5 UNITS in Pre-Filled Syringe SC SCH (09:25)
[2020-05-22] MEDS: Cefepime 1 GM in Sodium Chloride 0.9% 100 ML IVPB SCH (09:26)
[2020-05-22] MEDS: hydrALAZINE 25 MG TAB PO SCH ×3 (09:27→20:51)
[2020-05-22] MEDS: Ascorbic Acid 500 mg Chewable Tablet PO SCH (09:27)
[2020-05-22] MEDS: Heparin 5,000 UNITS/ML VIAL SC SCH ×3 (09:27→20:50)
[2020-05-22] MEDS: Atorvastatin Calcium 20 MG TAB PO SCH (09:28)
[2020-05-22] MEDS: Famotidine 20 MG TAB PO SCH (09:28)
[2020-05-22] MEDS: Folic Acid 1 MG TAB PO SCH (09:28)
[2020-05-22] MEDS: Cholecalciferol (Vitamin D3) 400 UNITS TAB PO SCH (09:29)
[2020-05-22] MEDS: Amlodipine 10 MG TAB PER TUBE SCH (09:29)
[2020-05-22] MEDS: Carvedilol 3.125 MG TAB PO SCH ×2 (09:29→17:29)
[2020-05-22] MEDS: Senokot 8.6 MG TAB PO SCH ×2 (10:03→22:47)
--- NOTE | 2020-05-22 11:56 | PRG ---
DATE OF SERVICE: 05/22/2020 SUBJECTIVE: A 70-year-old female being seen for end-stage renal disease. The patient remains intubated. OBJECTIVE: GENERAL: The patient is resting. VITAL SIGNS: Pulse 87, breathing 16, blood pressure HEENT: Head normocephalic and atraumatic. Eyes intact, no ulcers. Nose intact, no ulcers. Ears intact, no ulcers. NECK: Supple. No JVD. CHEST: Symmetrical and clear. CARDIOVASCULAR: Shows S1 and S2, no rub, no murmur. GASTROINTESTINAL: Abdomen is soft, bowel sounds positive. EXTREMITIES: Show no edema or ulcers. SKIN: Shows no rash or petechiae. MUSCULOSKELETAL: Shows no joint swelling or stiffness. GENITOURINARY: Shows no Do or CVA tenderness. NEUROLOGIC: The patient is resting. LABORATORY DATA: Labs showed hemoglobin 9.7. ASSESSMENT AND PLAN: 1. Stage 3 chronic kidney disease. Plan dialysis. 2. Hypertension, stable. 3. Anemia, stable. 4. Uremia, stable. Job ID: [id number]
[2020-05-22] MEDS: Labetalol HCl 100 MG/20 ML VIAL SLOW IVP PRN (11:59)
[2020-05-22] MEDS: Insulin Regular 300 UNITS/3 ML VIAL SC PRN ×3 (12:38→22:26)
--- NOTE | 2020-05-22 15:22 | PDOC.HOSPP ---
- Subjective Encounter Date: 05/22/20 Encounter Time: 09:00 Subjective: is on vent, is coming off sedation, moving all extremities, not oriented now - Objective Vital Signs & Weight: Vital Signs (12 hours) Temp Pulse Resp BP Pulse Ox 05/22/20 14:40 88 174/131 H 05/22/20 14:00 99.2 F 17 05/22/20 12:00 22 H 05/22/20 11:36 88 174/131 H 05/22/20 10:00 99.2 F 18 05/22/20 09:29 87 165/80 H 05/22/20 09:27 87 165/80 H 05/22/20 08:00 17 100 05/22/20 07:49 87 165/80 H 05/22/20 07:00 99.7 F H 05/22/20 06:00 20 05/22/20 04:00 99.6 F 20 Weight Admit Weight 186 lb 4.8 oz Weight 224 lb 13.944 oz Most Recent Monitor Data Heart Rate from ECG 86 NIBP 158/75 NIBP BP-Mean 102 Respiration from ECG 19 SpO2 100 I&O: 05/21/20 05/22/20 05/23/20 06:59 06:59 06:59 Intake Total 3542 3018.3 420 Output Total 30 13 0 Balance 3512 3005.3 420 Result Diagrams: 05/22/20 03:55 05/22/20 03:30 Additional Labs: Accuchecks 05/22/20 05/22/20 05/21/20 10:51 04:15 16:00 POC Glucose 175 H 161 H 165 H Hospitalist ROS - Medication Medications: Active Medications Generic Name Dose Route Start Last Admin Trade Name Freq PRN Reason Stop Dose Admin Acetaminophen 650 mg 05/05/20 03:50 05/05/20 04:19 Acetaminophen 325 Mg Tab PO 650 mg Q4H PRN Administration Mild Pain Albuterol Sulfate 2 puff 05/05/20 03:59 05/05/20 07:40 Albuterol 200 Puff (6.7gm Inhaler) INH 2 puff [id number] PRN Administration Wheezing Amlodipine Besylate 10 mg 05/15/20 09:00 05/22/20 09:29 Amlodipine 10 Mg Tab PER TUBE 10 mg DAILY ESTER Administration Ascorbic Acid 1,000 mg 05/02/20 09:00 05/22/20 09:27 Ascorbic Acid 500 Mg Chewable Tablet PO 1,000 mg DAILY ESTER Administration Atorvastatin Calcium 20 mg 05/09/20 09:00 05/22/20 09:28 Atorvastatin Calcium 20 Mg Tab PO 20 mg DAILY ESTER Administration Carvedilol 3.125 mg 05/06/20 17:00 05/22/20 09:29 Carvedilol 3.125 Mg Tab PO 3.125 mg BID- ESTER Administration Cholecalciferol 400 units 05/02/20 09:00 05/22/20 09:29 Cholecalciferol (Vitamin D3) 400 Units Tab PO 400 units DAILY ESTER Administration Famotidine 20 mg 05/19/20 09:00 05/22/20 09:28 Famotidine 20 Mg Tab PO 20 mg DAILY ESTER Administration Folic Acid 1 mg 05/03/20 09:00 05/22/20 09:28 Folic Acid 1 Mg Tab PO 1 mg DAILY ESTER Administration Heparin Sodium (Porcine) 5,000 units 05/02/20 09:00 05/22/20 14:41 Heparin 5,000 Units/Ml Vial SC 5,000 units TID ESTER Administration Hydralazine HCl 75 mg 05/08/20 09:00 05/22/20 14:40 Hydralazine 25 Mg Tab PO 75 mg TID ESTER Administration Insulin Glargine 5 units/ 0.05 mls @ 0 mls/hr 05/13/20 09:00 05/22/20 09:25 Miscellaneous Medication SC 0.05 mls QAM ESTER Administration Fentanyl Citrate 2,000 mcg/ 100 mls @ 0 mls/hr 05/12/20 21:30 05/20/20 13:29 Sodium Chloride IV 06/11/20 21:30 100 mls INF ESTER Administration Protocol Per Protocol Sodium Chloride 1,000 mls @ 100 mls/hr 05/13/20 09:30 05/22/20 13:40 Normal Saline 0.9% IV 1,000 mls .Q10H ESTER Administration Cefepime HCl 1 gm/ Sodium 100 mls @ 200 mls/hr 05/15/20 10:00 05/22/20 09:26 Chloride IVPB 100 mls 1000 ESTER Administration Insulin Human Regular 0 units 05/13/20 09:28 05/22/20 12:38 Insulin Regular 300 Units/3 Ml Vial SC 2 unit .MODERATE SLIDING SC PRN Administration Moderate Correctional Scale Lorazepam 0.5 mg 05/12/20 19:07 05/12/20 19:24 Lorazepam 2 Mg/Ml Vial SLOW IVP 0.5 mg BIDPRN PRN Administration .ANXIETY Magnesium Citrate 300 ml 05/02/20 19:40 05/04/20 08:13 Magnesium Citrate 300 Ml Bot PO 300 ml DAILYPRN PRN Administration Constipation Methylprednisolone Sodium Succinate 40 mg 05/15/20 12:00 05/22/20 12:38 Methylprednisolone Sod Succ 40 Mg Vial IVP 40 mg Q6HR ESTER Administration Metoclopramide HCl 10 mg 05/16/20 18:00 05/22/20 10:03 Metoclopramide Hcl 10 Mg/2 Ml Vial IVP Not Given Q8H ESTER Mometasone Furoate/Formoterol Fumar 2 puff 05/09/20 18:30 05/22/20 07:49 Mometasone 200 Mcg/Formoterol 5 Mcg 120 Puff Inhaler INH 2 puff BID-RT ESTER Administration Ondansetron HCl 4 mg 05/03/20 17:50 05/09/20 20:49 Ondansetron Pf 4 Mg/2 Ml Vial IVP 4 mg Q6H PRN Administration Nausea/Vomiting Ondansetron HCl 4 mg 05/08/20 01:15 05/08/20 14:20 Ondansetron Odt 4 Mg Tab PO 4 mg Q6H PRN Administration Nausea/Vomiting Propofol 1,000 mg 05/12/20 21:30 05/21/20 03:43 Propofol 1,000 Mg/100 Ml Vial IV 06/11/20 21:30 1,000 mg INF PRN Administration TO ACHIEVE GOAL RASS Protocol Senna 2 tab 05/08/20 21:00 05/22/20 10:03 Senokot 8.6 Mg Tab PO Not Given BID ESTER Zolpidem Tartrate 10 mg 05/02/20 19:39 05/11/20 21:08 Zolpidem Tartrate 5 Mg Tab PO 10 mg HSPRN PRN Administration Insomnia - Exam General Appearance: ill appearing Eye: PERRL, anicteric sclera ENT: no oropharyngeal lesions, moist mucosa Neck: supple, no JVD Heart: RRR, no murmur Respiratory: no wheezes, rales, rhonchi Gastrointestinal: soft, non-tender, non-distended, normal bowel sounds Extremities: no cyanosis, 1+ LE edema Neurological: cranial nerve grossly intact, no focal deficits Hosp A/P (1) Pneumonia due to COVID-19 virus Code(s): U07.1 - COVID-19; J12.89 - OTHER VIRAL PNEUMONIA Status: Acute (2) Acute kidney injury superimposed on CKD Code(s): N17.9 - ACUTE KIDNEY FAILURE, UNSPECIFIED; N18.9 - CHRONIC KIDNEY DISEASE, UNSPECIFIED Status: Acute (3) Acute respiratory failure with hypoxia Code(s): J96.01 - ACUTE RESPIRATORY FAILURE WITH HYPOXIA Status: Acute (4) HTN (hypertension) Code(s): I10 - ESSENTIAL (PRIMARY) HYPERTENSION Status: Chronic Qualifiers: Hypertension type: essential hypertension Qualified Code(s): I10 - Essential (primary) hypertension (5) Dyslipidemia Code(s): E78.5 - HYPERLIPIDEMIA, UNSPECIFIED Status: Chronic (6) Peripheral neuropathy Code(s): G62.9 - POLYNEUROPATHY, UNSPECIFIED Status: Chronic Qualifiers: Peripheral neuropathy type: polyneuropathy, unspecified Qualified Code(s): G62.9 - Polyneuropathy, unspecified (7) Anemia of renal disease Code(s): D63.1 - ANEMIA IN CHRONIC KIDNEY DISEASE Status: Chronic (8) Metabolic acidosis Code(s): E87.2 - ACIDOSIS Status: Resolved (9) Physical deconditioning Code(s): R53.81 - OTHER MALAISE Status: Acute (10) Obesity (BMI 30.0-34.9) Code(s): E66.9 - OBESITY, UNSPECIFIED Status: Chronic - Plan weaning per pulm advice, continue steroids, cefepime, alb inh, dulera inh. 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 is initiated on HD this admission. continue norvasc, lipitor, coreg, hydralazine. May dc iv fluids. will need rehab/swing bed for dc plan, had agreed to go to [place] swing bed before intubation. d/w and gave full updates and guarded prognosis 05/22. hemostable has lots of oral secretions, may need scopalamine tts.
[2020-05-22] MEDS: Scopolamine 1.5 mg/72 hour Patch TOP SCH (17:17)
[2020-05-23] MEDS: Metoclopramide HCl 10 MG/2 ML VIAL IVP SCH ×3 (04:57→17:51)
[2020-05-23] MEDS: Insulin Regular 300 UNITS/3 ML VIAL SC PRN ×3 (05:11→22:13)
[2020-05-23] MEDS: methylPREDNISolone Sod Succ 40 MG VIAL IVP SCH ×2 (06:00→20:27)
[2020-05-23 06:41] LABS: Anion Gap 21 mmol/L (10-20); BUN (Urea Nitrogen) 99 mg/dL (9.8-20.1); Calc. Creatinine Clearance 20 mL/min (70-130); Calcium 7.2 mg/dL (7.8-10.44); Carbon Dioxide 19 mmol/L (23-31); Chloride 102 mmol/L (98-107); Glucose 180 mg/dL (80-115); Potassium 3.7 mmol/L (3.5-5.1); Sodium 138 mmol/L (136-145)
[2020-05-23 07:16] LABS: Hemoglobin 7.4 g/dL (12.0-16.0); Mean Corpuscular HGB CONC 32.3 g/dL (32.0-36.0); Mean Corpuscular Hemoglobin 28.6 pg (27.0-31.0); Mean Corpuscular Volume 88.7 fL (78.0-98.0); Mean Platelet Volume 10.3 fL (7.4-10.4); Platelet Count 172 thou/uL (130-400); RBC Distribution Width 15.2 % (11.5-14.5); Red Blood Cell (RBC) Count 2.59 mill/uL (4.20-5.40); White Blood Cell (WBC) Count 22.4 thou/uL (4.8-10.8)
[2020-05-23] MEDS: Mometasone 200 MCG/Formoterol 5 MCG 120 PUFF INHALER INH SCH ×2 (07:40→19:05)
[2020-05-23 08:19] LABS: Band 4 % (5-11); Burr Cells MODERATE= 6-15 cells (100X) (0-1/hpf); Eosinophils 1 % (0-10); Lymphocytes 4 % (21-51); MDiff Complete? YES; Monocytes 5 % (0-10); Neutrophil 86 % (42-75); Platelet Morphology Comment Appears Adequate; Polychromasia MODERATE = 3-4 cells (100X) (0-2/hpf); Schistocytes SLIGHT = 2-5 cells (100X) (0-1/hpf)
[2020-05-23] MEDS: Insulin Glargine 5 UNITS in Pre-Filled Syringe SC SCH (08:45)
[2020-05-23] MEDS: Folic Acid 1 MG TAB PO SCH (08:45)
[2020-05-23] MEDS: Ascorbic Acid 500 mg Chewable Tablet PO SCH (08:45)
[2020-05-23] MEDS: Atorvastatin Calcium 20 MG TAB PO SCH (08:45)
[2020-05-23] MEDS: Senokot 8.6 MG TAB PO SCH ×2 (08:45→21:58)
[2020-05-23] MEDS: hydrALAZINE 25 MG TAB PO SCH ×3 (08:45→20:27)
[2020-05-23] MEDS: Amlodipine 10 MG TAB PER TUBE SCH (08:45)
[2020-05-23] MEDS: Cholecalciferol (Vitamin D3) 400 UNITS TAB PO SCH (08:45)
[2020-05-23] MEDS: Famotidine 20 MG TAB PO SCH (08:45)
[2020-05-23] MEDS: Carvedilol 3.125 MG TAB PO SCH ×2 (08:45→17:51)
[2020-05-23 09:33] LABS: Platelet Count 183 thou/uL (130-400)
[2020-05-23 09:35] LABS: Fibrinogen 358 mg/dL (253-463); INR-International Normal Ratio 1.3; Prothrombin Time 16.3 sec (12.0-14.7)
--- NOTE | 2020-05-23 09:44 | PRG ---
DATE OF SERVICE: 05/23/2020 SUBJECTIVE: Josemanuel Reed is a -lapn-pbi female who is intubated in the vent. She is bleeding from her central line in the groin. She is bleeding from the mouth. She had a large bloody rectal stool this morning. In the process of getting dialyzed, she is little bit more responsive this morning. She is off all sedation for at least 24 to 48 hours. OBJECTIVE: VITAL SIGNS: Pulse 89, sats 100%, blood pressure 160/106, 40% CPAP. CHEST: No wheezing, no crackles. CARDIAC: Normal S1, S2. No gallops. ABDOMEN: Soft. LABORATORY DATA: White count 20,000, H and H /, platelet count 172, creatinine is 4, BUN 99. ASSESSMENT: Respiratory failure, metabolic encephalopathy, gastrointestinal bleed, renal failure, lim positive pneumonia. PLAN: CT without contrast is being ordered to rule out any obvious bleed, otherwise post dialysis we are going to reassess the situation to see whether she is weanable. We are going to call Palliative Care to discuss options with the family. TIME SPENT: One-half hour of critical time. Job ID: [id number]
[2020-05-23] MEDS: Cefepime 1 GM in Sodium Chloride 0.9% 100 ML IVPB SCH (10:15)
[2020-05-23 10:21] LABS: FSP-Qualitative ABNORMAL (Normal); FSP-Semiquantitative >=5 & <20 mcg/mL (Less than 5)
--- NOTE | 2020-05-23 10:47 | PRG ---
DATE OF SERVICE: 05/23/2020 SUBJECTIVE: A 70-year-old female, being seen for end-stage renal disease. The patient is resting, intubated. OBJECTIVE: GENERAL: The patient is resting. VITAL SIGNS: Afebrile, pulse 75, breathing 16, blood pressure 130/73. HEENT: Head normocephalic and atraumatic. Eyes intact, no ulcers. Nose intact, no ulcers. Ears intact, no ulcers. Neck: Supple. No JVD. Chest: Symmetrical and clear. Cardiovascular: Shows S1 and S2, no rub, no murmur. Gastrointestinal: Abdomen is soft, bowel sounds positive. Extremities: Show no edema or ulcers. Skin: Shows no rash or petechiae. Musculoskeletal: Shows no joint swelling or stiffness. Genitourinary: Shows no Do or CVA tenderness. Neurologic: The patient is resting. LABORATORY DATA: Labs show hemoglobin 7.4. ASSESSMENT AND PLAN: 1. Stage chronic kidney disease, plan hemodialysis. 2. Anemia. We would recommend transfusion . 3. Hypertension, stable. Medication based on GFR appropriate. Job ID: [id number]
--- NOTE | 2020-05-23 13:06 | RAD ---
XR Chest 1 View Portable History: Ventilated patient Comparison: Radiograph 2 days prior Findings: The peripheral airspace opacities are relatively similar to slightly worsened. Endotracheal tube tip at the clavicular level. Enteric tube tip below diaphragm although out of field of view. Impression: Similar appearance of the chest. No pneumothorax or pneumomediastinum.
--- NOTE | 2020-05-23 15:36 | CT ---
CT head noncontrast HISTORY: Altered mental status. FINDINGS: There is no evidence of acute intracranial hemorrhage or infarct. Mild chronic ischemic sma ll vessel disease within the periventricular white matter of each cerebral hemisphere. There is no mass effect or shift of midline structures. Old lacunar infarct left basal ganglia. Prominent mucosal thickening throughout the paranasal sinuses, as often seen in a long-term intubated patient. IMPRESSION : No acute abnormalities are demonstrated.
--- NOTE | 2020-05-23 15:44 | PDOC.HOSPP ---
- Subjective Encounter Date: 05/23/20 Encounter Time: 10:00 Subjective: awakens to touch but is not oriented or follows is seen moving all extremities getting HD now - Objective Vital Signs & Weight: Vital Signs (12 hours) Temp Pulse Resp BP Pulse Ox 05/23/20 10:39 96 05/23/20 09:00 98.8 F 05/23/20 08:00 100 05/23/20 07:40 89 16 100 05/23/20 07:36 85 162/106 H 05/23/20 06:00 19 05/23/20 05:15 87 05/23/20 04:00 98.3 F 18 Weight Admit Weight 186 lb 4.8 oz Weight 224 lb 13.944 oz Most Recent Monitor Data Heart Rate from ECG 91 NIBP 140/74 NIBP BP-Mean 96 Respiration from ECG 16 SpO2 100 I&O: 05/22/20 05/23/20 05/24/20 06:59 06:59 06:59 Intake Total 3018.3 4227 90 Output Total 13 19 0 Balance 3005.3 4208 90 Result Diagrams: 05/23/20 09:16 05/23/20 04:30 Additional Labs: Accuchecks 05/23/20 05/22/20 05/22/20 05:09 22:25 15:47 POC Glucose 171 H 171 H 177 H Hospitalist ROS - Medication Medications: Active Medications Generic Name Dose Route Start Last Admin Trade Name Freq PRN Reason Stop Dose Admin Acetaminophen 650 mg 05/05/20 03:50 05/05/20 04:19 Acetaminophen 325 Mg Tab PO 650 mg Q4H PRN Administration Mild Pain Albuterol Sulfate 2 puff 05/05/20 03:59 05/05/20 07:40 Albuterol 200 Puff (6.7gm Inhaler) INH 2 puff [id number] PRN Administration Wheezing Amlodipine Besylate 10 mg 05/15/20 09:00 05/22/20 09:29 Amlodipine 10 Mg Tab PER TUBE 10 mg DAILY ESTER Administration Ascorbic Acid 1,000 mg 05/02/20 09:00 05/22/20 09:27 Ascorbic Acid 500 Mg Chewable Tablet PO 1,000 mg DAILY ESTER Administration Atorvastatin Calcium 20 mg 05/09/20 09:00 05/22/20 09:28 Atorvastatin Calcium 20 Mg Tab PO 20 mg DAILY ESTER Administration Carvedilol 3.125 mg 05/06/20 17:00 05/22/20 17:29 Carvedilol 3.125 Mg Tab PO 3.125 mg BID-WM ESTER Administration Cholecalciferol 400 units 05/02/20 09:00 05/22/20 09:29 Cholecalciferol (Vitamin D3) 400 Units Tab PO 400 units DAILY ESTER Administration Famotidine 20 mg 05/19/20 09:00 05/22/20 09:28 Famotidine 20 Mg Tab PO 20 mg DAILY ESTER Administration Folic Acid 1 mg 05/03/20 09:00 05/22/20 09:28 Folic Acid 1 Mg Tab PO 1 mg DAILY ESTER Administration Hydralazine HCl 75 mg 05/08/20 09:00 05/22/20 20:51 Hydralazine 25 Mg Tab PO 75 mg TID ESTER Administration Insulin Glargine 5 units/ 0.05 mls @ 0 mls/hr 05/13/20 09:00 05/22/20 09:25 Miscellaneous Medication SC 0.05 mls QAM ESTER Administration Cefepime HCl 1 gm/ Sodium 100 mls @ 200 mls/hr 05/15/20 10:00 05/22/20 09:26 Chloride IVPB 100 mls 1000 ESTER Administration Insulin Human Regular 0 units 05/13/20 09:28 05/23/20 05:11 Insulin Regular 300 Units/3 Ml Vial SC 2 unit .MODERATE SLIDING SC PRN Administration Moderate Correctional Scale Magnesium Citrate 300 ml 05/02/20 19:40 05/04/20 08:13 Magnesium Citrate 300 Ml Bot PO 300 ml DAILYPRN PRN Administration Constipation Metoclopramide HCl 10 mg 05/16/20 18:00 05/23/20 10:04 Metoclopramide Hcl 10 Mg/2 Ml Vial IVP Not Given Q8H ESTER Mometasone Furoate/Formoterol Fumar 2 puff 05/09/20 18:30 05/23/20 07:40 Mometasone 200 Mcg/Formoterol 5 Mcg 120 Puff Inhaler INH 2 puff BID-RT ESTER Administration Ondansetron HCl 4 mg 05/03/20 17:50 05/09/20 20:49 Ondansetron Pf 4 Mg/2 Ml Vial IVP 4 mg Q6H PRN Administration Nausea/Vomiting Ondansetron HCl 4 mg 05/08/20 01:15 05/08/20 14:20 Ondansetron Odt 4 Mg Tab PO 4 mg Q6H PRN Administration Nausea/Vomiting Propofol 1,000 mg 05/12/20 21:30 05/21/20 03:43 Propofol 1,000 Mg/100 Ml Vial IV 06/11/20 21:30 1,000 mg INF PRN Administration TO ACHIEVE GOAL RASS Protocol Scopolamine 1.5 mg 05/22/20 15:15 05/22/20 17:17 Scopolamine 1.5 Mg/72 Hour Patch TOP 1.5 mg Q3D ESTER Administration Senna 2 tab 05/08/20 21:00 05/22/20 22:47 Senokot 8.6 Mg Tab PO Not Given BID ESTER Zolpidem Tartrate 10 mg 05/02/20 19:39 05/11/20 21:08 Zolpidem Tartrate 5 Mg Tab PO 10 mg HSPRN PRN Administration Insomnia - Exam General Appearance: ill appearing Eye: PERRL, anicteric sclera ENT: no oropharyngeal lesions, moist mucosa Neck: supple, no JVD Heart: RRR, no murmur Respiratory: no wheezes, rales, rhonchi Gastrointestinal: soft, non-tender, non-distended, normal bowel sounds Extremities: no cyanosis, 1+ LE edema Neurological: cranial nerve grossly intact, no focal deficits Hosp A/P (1) Pneumonia due to COVID-19 virus Code(s): U07.1 - COVID-19; J12.89 - OTHER VIRAL PNEUMONIA Status: Acute (2) Acute kidney injury superimposed on CKD Code(s): N17.9 - ACUTE KIDNEY FAILURE, UNSPECIFIED; N18.9 - CHRONIC KIDNEY DISEASE, UNSPECIFIED Status: Acute (3) Acute respiratory failure with hypoxia Code(s): J96.01 - ACUTE RESPIRATORY FAILURE WITH HYPOXIA Status: Acute (4) HTN (hypertension) Code(s): I10 - ESSENTIAL (PRIMARY) HYPERTENSION Status: Chronic Qualifiers: Hypertension type: essential hypertension Qualified Code(s): I10 - Essential (primary) hypertension (5) Dyslipidemia Code(s): E78.5 - HYPERLIPIDEMIA, UNSPECIFIED Status: Chronic (6) Peripheral neuropathy Code(s): G62.9 - POLYNEUROPATHY, UNSPECIFIED Status: Chronic Qualifiers: Peripheral neuropathy type: polyneuropathy, unspecified Qualified Code(s): G62.9 - Polyneuropathy, unspecified (7) Anemia of renal disease Code(s): D63.1 - ANEMIA IN CHRONIC KIDNEY DISEASE Status: Chronic (8) Metabolic acidosis Code(s): E87.2 - ACIDOSIS Status: Resolved (9) Physical deconditioning Code(s): R53.81 - OTHER MALAISE Status: Acute (10) Obesity (BMI 30.0-34.9) Code(s): E66.9 - OBESITY, UNSPECIFIED Status: Chronic - Plan weaning per pulm advice, continue steroids, cefepime, alb inh, dulera inh. 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 is initiated on HD this admission. continue norvasc, lipitor, coreg, hydralazine. Has around 35lbs weight gain from admission, needs volume removal as tolerated with HD d/w and gave full updates and guarded prognosis 05/22. hemostable has lots of oral secretions, is on scopalamine tts. PTT and fibrin degradation products are abnormal, likely DIC, is off heparin dvt prophylaxis and will not be getting heparin with HD including for locking pu rpose (d/w HD tech at bedside) repeat INR, PTT in am, serial H/H, transfuse if hb is less than 7g, watch for gi bleed
[2020-05-23] MEDS: Ondansetron PF 4 MG/2 ML Vial IVP PRN (16:00)
[2020-05-23 17:20] LABS: Hemoglobin 6.3 g/dL (12.0-16.0)
[2020-05-23] MEDS: Sodium Chloride 0.9% 1,000 ML IV SCH (19:03)
[2020-05-23] MEDS: Heparin 5,000 UNITS/ML VIAL SC SCH (19:03)
[2020-05-24] MEDS: Metoclopramide HCl 10 MG/2 ML VIAL IVP SCH (04:50)
[2020-05-24 05:12] LABS: #Lymphocytes 1.3 thou/uL (1.20-3.40); #Monocytes 0.9 thou/uL (0.11-0.59); #Neutrophils 17.6 thou/uL (1.40-6.50); %Basophils 0.1 % (0.0-1.0); %Eosinophils 0.1 % (0.0-10.0); %Lymphocytes 6.6 % (21.0-51.0); %Monocytes 4.5 % (0.0-10.0); %Neutrophils 88.8 % (42.0-75.0); Hemoglobin 6.6 g/dL (12.0-16.0); Mean Corpuscular HGB CONC 34.3 g/dL (32.0-36.0); Mean Corpuscular Hemoglobin 29.9 pg (27.0-31.0); Mean Platelet Volume 9.9 fL (7.4-10.4); Platelet Count 149 thou/uL (130-400); RBC Distribution Width 14.2 % (11.5-14.5); Red Blood Cell (RBC) Count 2.22 mill/uL (4.20-5.40); White Blood Cell (WBC) Count 19.9 thou/uL (4.8-10.8)
[2020-05-24 05:37] LABS: Anion Gap 19 mmol/L (10-20); BUN (Urea Nitrogen) 74 mg/dL (9.8-20.1); Calc. Creatinine Clearance 26 mL/min (70-130); Calcium 7.4 mg/dL (7.8-10.44); Carbon Dioxide 24 mmol/L (23-31); Chloride 99 mmol/L (98-107); Glucose 153 mg/dL (80-115); Potassium 3.3 mmol/L (3.5-5.1); Sodium 139 mmol/L (136-145)
[2020-05-24] MEDS: Mometasone 200 MCG/Formoterol 5 MCG 120 PUFF INHALER INH SCH ×2 (07:37→18:50)
[2020-05-24 08:02] LABS: INR-International Normal Ratio 1.2; PTT 63.8 sec (22.9-36.1); Prothrombin Time 15.7 sec (12.0-14.7)
[2020-05-24 09:27] LABS: ALT (SGPT) 34 U/L (8-55); AST (SGOT) 36 U/L (5-34); Albumin 2.4 g/dL (3.4-4.8); Alkaline Phosphatase 124 U/L (40-110); Bilirubin, Direct 0.3 mg/dL (0.1-0.3); Bilirubin, Total 0.6 mg/dL (0.2-1.2); Protein, Total 4.6 g/dL (6.0-8.3)
[2020-05-24] MEDS: Carvedilol 3.125 MG TAB PO SCH (09:27)
[2020-05-24] MEDS: Ascorbic Acid 500 mg Chewable Tablet PO SCH (09:27)
[2020-05-24] MEDS: Amlodipine 10 MG TAB PER TUBE SCH (09:27)
[2020-05-24] MEDS: Atorvastatin Calcium 20 MG TAB PO SCH (09:28)
[2020-05-24] MEDS: Cholecalciferol (Vitamin D3) 400 UNITS TAB PO SCH (09:28)
[2020-05-24] MEDS: Folic Acid 1 MG TAB PO SCH (09:29)
[2020-05-24] MEDS: hydrALAZINE 25 MG TAB PO SCH (09:29)
[2020-05-24] MEDS: Famotidine 20 MG TAB PO SCH (09:29)
--- NOTE | 2020-05-24 09:40 | PRG ---
DATE OF SERVICE: 05/24/2020 SUBJECTIVE: Genia Reed this morning remains encephalopathic in the ICU. She is off all sedation. OBJECTIVE: VITAL SIGNS: Temperature 98, pulse 90, blood pressure 165/79, sats 98% and rate of 4. CHEST: No wheezing, no crackles. CARDIAC: Normal S1, S2. No gallops. ABDOMEN: Soft. LABORATORY DATA: H and H are 6 and 19, platelet count 149. PTT is 69. INR is 1.2. Creatinine is 3, BUN is 74. ASSESSMENT: Massive bleeding, both upper lower GI. Renal failure. No evidence of DIC. Prolonged PTT. PLAN: Unclear why she is having such massive bleeding. Consider input from GI. Pulmonary perera, she is stable enough to be weaned and extubated except for the GI bleed. Consider giving DDAVP. We will follow. One-half hour of critical care time. Job ID: [id number]
[2020-05-24] MEDS: methylPREDNISolone Sod Succ 40 MG VIAL IVP SCH ×2 (09:51→21:54)
[2020-05-24] MEDS: Famotidine/PF 20 mg/2ml Vial SLOW IVP SCH (09:52)
[2020-05-24] MEDS ORDERED: Pantoprazole 40 MG VIAL IVP SCH (10:45)
[2020-05-24] MEDS: Insulin Glargine 5 UNITS in Pre-Filled Syringe SC SCH (11:46)
[2020-05-24] MEDS: Labetalol HCl 100 MG/20 ML VIAL SLOW IVP PRN (11:48)
[2020-05-24 12:07] LABS: Glucose 128 mg/dL (80-115)
--- NOTE | 2020-05-24 12:15 | PRG ---
DATE OF SERVICE: 05/24/2020 SUBJECTIVE: 70-year-old female, being seen for end-stage renal disease. Patient is resting, intubated. OBJECTIVE: GENERAL: Patient is resting. VITAL SIGNS: Afebrile. Pulse 85, breathing 16, blood pressure 164/79. HEENT: Head normocephalic and atraumatic. Eyes intact, no ulcers. Nose intact, no ulcers. Ears intact, no ulcers. NECK: Supple. No JVD. CHEST: Symmetrical and clear. CARDIOVASCULAR: Shows S1 and S2, no rub, no murmur. GASTROINTESTINAL: Abdomen is soft, bowel sounds positive. EXTREMITIES: Show no edema or ulcers. SKIN: Shows no rash or petechiae. MUSCULOSKELETAL: Shows no joint swelling or stiffness. GENITOURINARY: Shows no Do or CVA tenderness. NEUROLOGIC: Patient is resting. LABORATORY DATA: Hemoglobin 6.6. ASSESSMENT AND PLAN: Stage 6 chronic kidney disease, plan dialysis. Anemia. We would recommend transfusion. Hypertension, stable. Medication based on GFR appropriate. Overall, prognosis is poor. Job ID: [id number]
--- NOTE | 2020-05-24 12:58 | CON ---
DATE OF CONSULTATION: REQUESTING PHYSICIAN: Isaiah Adrian MD REASON FOR CONSULT: GI bleeding. HISTORY OF PRESENT ILLNESS: Ms. Reed is intubated in the ICU for COVID pneumonia and respiratory failure. I have been asked to see her as yesterday apparently she started bleeding profusely from her lines and has had maroon stools per rectum and blood per NG tube. She was found to be coagulopathic. The nurses note she has been bleeding from her lines, her dialysis catheter additionally. She was on an H2 marshall for ulcer prophylaxis up until yesterday when this began and she is still on famotidine. She has been given desmopressin today. She was on heparin, last given on the . She was getting some hep locks for dialysis catheter. Her admission hemoglobin was 9.8; on 05/18, she was down to 6.7; on 05/20, she was 10. She slowly drifted down, on the , she was 7.4 then dropped to 6.3. She was given 2 units of FFP yesterday and 1 unit of blood yesterday. On the , she received 2 units of blood. After the transfusion on the , she came up to the 9 to 10 range. After the transfusion yesterday for hemoglobin 6.3, she was 7 last night and 6.6 this morning. The patient has been on dialysis. She has developed renal failure this admission as well. The patient cannot give any history. Again, history and hospital course have been gleaned from review of the chart, talking with ICU nurse today and talking with Dr. Adrian, the referring physician. PAST HISTORY: Hypertension, hyperlipidemia, type 2 diabetes. PAST SURGICAL HISTORY: Cataract surgery, tubal ligation. MEDICATIONS: At home: 1. Hydralazine. 2. Tramadol. 3. Alprazolam. 4. Zolpidem. 5. Amlodipine. 6. Carvedilol. 7. Furosemide. 8. Atorvastatin. 9. Tylenol. Medications presently: 1. Norvasc. 2. Bisacodyl. 3. Desmopressin (DDAVP). 4. Pepcid 20 IV b.i.d. 5. Glucagon. 6. Insulin sliding scale. 7. Solu-Medrol 40 b.i.d. 8. Zofran. 9. Propofol. 10. Scopolamine. ALLERGIES: CLINDAMYCIN, VICODIN, HYDROXYZINE, CRESTOR. REVIEW OF SYSTEMS: Unable to be obtained. FAMILY HISTORY: Unable to be obtained. SOCIAL HISTORY: Never a smoker. No alcohol. No drugs. Independent living. PHYSICAL EXAMINATION: VITAL SIGNS: Temperature is 98, T-max is 101.2 on the 12th, blood pressure 174/87, pulse 90. GENERAL: She is intubated. She is not responsive to verbal commands. She has dialysis catheter. She has a central line. She has Do catheter in place. She has towels over her line sites, they are oozing, they have dressings on that with pressure. She has some maroon stool in the bed that she has passed. Nurses getting her cleaned up now. LUNGS: Clear. HEART: Regular rate and rhythm without clicks or murmurs. ABDOMEN: Soft and nontender. She is mildly obese. LABORATORY DATA AND DIAGNOSTIC STUDIES: White count was 4.0 on admission. Since being on steroids, it has been elevated since the ; today, it is 19.9, it was 25.1 on the . Hemoglobin 6.6, MCV 87. Transfusion history as above. Platelets 149. DIC panel yesterday, INR 1.3, PT 16.3, PTT 188, fibrinogen 358. FDP high, greater than 5, less than 20. D-dimer 2.8. Today, INR is 1.2. PT 15.7, PTT 63. No blood gas today. Sodium 139, potassium 3.3, chloride 99, BUN 74, creatinine 3.26. BUN was 99 yesterday, 105 on the , it has been 50 to 70 really throughout the admission. Ferritin is 277 on admission, its high was 1971, on the , it was 1415. Bilirubin 0.6, AST 36, ALT 34, alkaline phosphatase 124, albumin 2.4, protein 4.6. Hepatitis A, B, C negative on 05/15/2020. COVID positive. Flu negative on 05/01/2020. CT brain 05/23/2020, negative. Chest x-ray 05/23/2020, peripheral airspace opacities, similar to previous x-rays. ASSESSMENT: 1. Coagulopathy. She has received FFP and is going to receive some DDAVP. 2. Bleeding from line sites, likely related to coagulopathy. 3. Gastrointestinal bleeding, likely related to coagulopathy, high risk for ulcers with steroids and H2 marshall prophylaxis and anticoagulation. 4. Persistent anticoagulation with PTT of 63.8. RECOMMENDATIONS: 1. Switch to IV PPI q.12 hours. 2. Transfuse 10 pack of platelets to help with coagulopathy. 3. Agree with further FFP and blood transfusion. 4. I do not see a need to reverse the heparin at this time, should be wearing off as this has not been given in 2 days and rapid reversal sometimes can precipitate clotting. She is at high risk for that as well. 5. Once she is resuscitated and coagulopathy is improved, can consider endoscopy. Job ID: [id number]
[2020-05-24] MEDS ORDERED: Heparin 10,000 UNITS/ 10 ML VIAL ONE (13:09)
[2020-05-24] MEDS ORDERED: PROPOFOL 20 ML ONE (13:18)
[2020-05-24] MEDS ORDERED: EPINEPHrine 1 MG/10 ML Abboject SYRINGE ONE (13:27)
--- NOTE | 2020-05-24 14:12 | PDOC.PALCO ---
Palliative Care Consult - Consult Details Requesting Physician: Dr Wilkes/Dr Adrian Reason for Consult: goals of care, family support - Pertinent HPI 70 year old female with multiple morbidities who had onset of cough, fever and weakness fo r2-3 days who presented to emergency room for evaluation. Radiology identified pneumonia, Covid +. Prior to onset of above mentioned symptoms she was at her baseline health status. No known Covid contacts. Steroids initiated, along with azithromycin and ceftriaxone and admitted for medical management. Was admitted to medical floor, but continued decline. Respiratory decline where code fouzia was called 05/13 and was intubated and transferred to CCU for higher level of care. Hemodialysis, off sedation, remains intubated. - Pertinent PMH CKD, HTN, HDL - Social History Smoking Status: Never smoker Smoking: no tobacco exposure Alcohol Use: none Drug Use History: none Living Situation: independent (, lives independently. Two living children) - Medications MAR Reviewed: Yes - Allergies Allergies/Adverse Reactions: Allergies Allergy/AdvReac Type Severity Reaction Status Date / Time clindamycin Allergy Unknown Verified 05/02/20 03:06 hydrocodone bitartrate Allergy Unknown Verified 05/02/20 03:06 [From Vicodin] hydroxyzine Allergy Unknown Verified 05/02/20 03:06 hydroxyzine HCl Allergy Unknown Hives Verified 05/02/20 03:06 [From Vistaril] hydroxyzine pamoate Allergy Unknown Hives Verified 05/02/20 03:06 [From Vistaril] rosuvastatin calcium Allergy Unknown Hives Verified 05/02/20 03:06 [From Crestor] - Subjective Intubated, mechanical ventilation, non responsive. Bleeding via dialysis cath, rectum, and NG. Being transfused. HGB May 20 hgb10 , May 23 hgb7.4 today hgb6.6 - ROS Non Response: due to endotracheal tube, due to mental status - Objective Vital Signs: Vital Signs - Most Recent Temp Pulse Resp BP Pulse Ox 98.8 F 91 16 183/83 H 99 05/24/20 07:57 05/24/20 11:48 05/24/20 07:57 05/24/20 11:48 05/24/20 07:57 Palliative Performance Scale: 20 - Physical Exam Constitutional: encephalitic, ill appearing HEENT: EOMI, moist MMs Respiratory: no wheezing, unlabored breathing Deviation from normal: Intubated with mechanical ventilation Cardiovascular: RRR Gastrointestinal: soft, non-tender Deviation from normal: maroon stools, blood via NG Genitourinary: soriano catheter Musculoskeletal: no cyanosis, edema present Skin: cap refill <2 seconds, no lesions Deviation from normal: encephalopathic - Problem List (1) Palliative care encounter Code(s): Z51.5 - ENCOUNTER FOR PALLIATIVE CARE Current Visit: Yes Status: Acute (2) Acute kidney injury superimposed on CKD Code(s): N17.9 - ACUTE KIDNEY FAILURE, UNSPECIFIED; N18.9 - CHRONIC KIDNEY DISEASE, UNSPECIFIED Current Visit: Yes Status: Acute (3) Physical deconditioning Code(s): R53.81 - OTHER MALAISE Current Visit: Yes Status: Acute (4) Pneumonia due to COVID-19 virus Code(s): U07.1 - COVID-19; J12.89 - OTHER VIRAL PNEUMONIA Current Visit: Yes Status: Acute (5) Acute and chronic respiratory failure with hypoxia Code(s): J96.21 - ACUTE AND CHRONIC RESPIRATORY FAILURE WITH HYPOXIA Current Visit: No Status: Acute (6) Acute renal failure superimposed on stage 4 chronic kidney disease Code(s): N17.9 - ACUTE KIDNEY FAILURE, UNSPECIFIED; N18.4 - CHRONIC KIDNEY DISEASE, STAGE 4 (SEVERE) Current Visit: No Status: Acute (7) Obesity (BMI 30.0-34.9) Code(s): E66.9 - OBESITY, UNSPECIFIED Current Visit: No Status: Chronic - Plan/Recommendations Plan: Introduced Palliative care to patient children. 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 Directive to physician in chart Jimenez who is patient son is traveling to [place] 05/25. Will revisit resuscitation and goals once he is here. He believes his mother has completed MPOA, however understanding he and his sister would act as surrogate decision makers if not located. Palliative care will continue to follow for family support and assist with communication and assistance with education for complex decision making. Jimenez [phone] Son Ingris [phone] Daughter [50] minutes spent on this encounter with >50% of the time in counseling and coordination of care. Thank you for this very appropriate consult.
[2020-05-24] MEDS: Senokot 8.6 MG TAB PO SCH (14:20)
--- NOTE | 2020-05-24 15:43 | PDOC.HOSPP ---
- Subjective Encounter Date: 05/24/20 Encounter Time: 10:00 Subjective: on vent, sedated has profuse rectal bleed, is also having bloody aspirate from ng tube and bleeding from her HD cath insertion area - Objective Vital Signs & Weight: Vital Signs (12 hours) Temp Pulse Pulse Resp BP BP Pulse Ox 05/24/20 14:52 90 05/24/20 11:48 91 183/83 H 05/24/20 07:57 98.8 F 91 16 164/76 H 99 05/24/20 07:37 90 18 99 05/24/20 07:29 92 164/79 H 05/24/20 06:00 20 05/24/20 04:00 99.2 F 14 Weight Admit Weight 186 lb 4.8 oz Weight 235 lb 7.259 oz Most Recent Monitor Data Heart Rate from ECG 84 NIBP 166/83 NIBP BP-Mean 110 Respiration from ECG 11 SpO2 98 I&O: 05/23/20 05/24/20 05/25/20 06:59 06:59 06:59 Intake Total 4227 1424 1320 Output Total 19 1150 Balance 4208 274 1320 Result Diagrams: 05/24/20 04:31 05/24/20 11:44 Additional Labs: Accuchecks 05/24/20 05/23/20 05/23/20 04:28 22:11 18:00 POC Glucose 144 H 160 H 157 H Hospitalist ROS - Medication Medications: Active Medications Generic Name Dose Route Start Last Admin Trade Name Freq PRN Reason Stop Dose Admin Albuterol Sulfate 2 puff 05/05/20 03:59 05/05/20 07:40 Albuterol 200 Puff (6.7gm Inhaler) INH 2 puff [id number] PRN Administration Wheezing Amlodipine Besylate 10 mg 05/15/20 09:00 05/24/20 09:27 Amlodipine 10 Mg Tab PER TUBE Not Given DAILY ESTER Desmopressin Acetate 1 mcg 05/24/20 21:00 05/24/20 09:53 Desmopressin Acetate 4 Mcg/Ml Vial IVP 05/25/20 21:01 1 mcg BID ESTER Administration Famotidine 20 mg 05/24/20 21:00 05/24/20 09:52 Famotidine/Pf 20 Mg/2ml Vial SLOW IVP 20 mg BID ESTER Administration Insulin Glargine 5 units/ 0.05 mls @ 0 mls/hr 05/13/20 09:00 05/24/20 11:46 Miscellaneous Medication SC Not Given QAM [facility] Insulin Human Regular 0 units 05/13/20 09:28 05/23/20 22:13 Insulin Regular 300 Units/3 Ml Vial SC 2 unit .MODERATE SLIDING SC PRN Administration Moderate Correctional Scale Labetalol HCl 20 mg 05/12/20 05:37 05/24/20 11:48 Labetalol Hcl 100 Mg/20 Ml Vial SLOW IVP 20 mg Q4H PRN Administration SBP >170 Methylprednisolone Sodium Succinate 40 mg 05/23/20 21:00 05/24/20 09:51 Methylprednisolone Sod Succ 40 Mg Vial IVP 40 mg BID ESTER Administration Mometasone Furoate/Formoterol Fumar 2 puff 05/09/20 18:30 05/24/20 07:37 Mometasone 200 Mcg/Formoterol 5 Mcg 120 Puff Inhaler INH 2 puff BID-RT ESTER Administration Ondansetron HCl 4 mg 05/03/20 17:50 05/23/20 16:00 Ondansetron Pf 4 Mg/2 Ml Vial IVP 4 mg Q6H PRN Administration Nausea/Vomiting Propofol 1,000 mg 05/12/20 21:30 05/21/20 03:43 Propofol 1,000 Mg/100 Ml Vial IV 06/11/20 21:30 1,000 mg INF PRN Administration TO ACHIEVE GOAL RASS Protocol Scopolamine 1.5 mg 05/22/20 15:15 05/22/20 17:17 Scopolamine 1.5 Mg/72 Hour Patch TOP 1.5 mg Q3D ESTER Administration - Exam General Appearance: ill appearing Eye: PERRL, anicteric sclera ENT: no oropharyngeal lesions, moist mucosa Neck: supple, no JVD Heart: RRR, no murmur Respiratory: no wheezes, rales, rhonchi Gastrointestinal: soft, non-tender, non-distended, normal bowel sounds Extremities: no cyanosis, 2+ LE edema Neurological: cranial nerve grossly intact, no focal deficits Hosp A/P (1) Pneumonia due to COVID-19 virus Code(s): U07.1 - COVID-19; J12.89 - OTHER VIRAL PNEUMONIA Status: Acute (2) Acute kidney injury superimposed on CKD Code(s): N17.9 - ACUTE KIDNEY FAILURE, UNSPECIFIED; N18.9 - CHRONIC KIDNEY DISE ASE, UNSPECIFIED Status: Acute (3) Acute respiratory failure with hypoxia Code(s): J96.01 - ACUTE RESPIRATORY FAILURE WITH HYPOXIA Status: Acute (4) HTN (hypertension) Code(s): I10 - ESSENTIAL (PRIMARY) HYPERTENSION Status: Chronic Qualifiers: Hypertension type: essential hypertension Qualified Code(s): I10 - Essential (primary) hypertension (5) Dyslipidemia Code(s): E78.5 - HYPERLIPIDEMIA, UNSPECIFIED Status: Chronic (6) Peripheral neuropathy Code(s): G62.9 - POLYNEUROPATHY, UNSPECIFIED Status: Chronic Qualifiers: Peripheral neuropathy type: polyneuropathy, unspecified Qualified Code(s): G62.9 - Polyneuropathy, unspecified (7) Anemia of renal disease Code(s): D63.1 - ANEMIA IN CHRONIC KIDNEY DISEASE Status: Chronic (8) Metabolic acidosis Code(s): E87.2 - ACIDOSIS Status: Resolved (9) Physical deconditioning Code(s): R53.81 - OTHER MALAISE Status: Acute (10) Obesity (BMI 30.0-34.9) Code(s): E66.9 - OBESITY, UNSPECIFIED Status: Chronic (11) DIC (disseminated intravascular coagulation) Code(s): D65 - DISSEMINATED INTRAVASCULAR COAGULATION Status: Acute (12) GI bleed Code(s): K92.2 - GASTROINTESTINAL HEMORRHAGE, UNSPECIFIED Status: Acute Qualifiers: GI bleed type/associated pathology: anorectal hemorrhage Qualified Code(s): K62.5 - Hemorrhage of anus and rectum - Plan Has severe coagulapathy which is slowly getting corrected, ptt is around 60's this am, Hb around 6g with profuse rectal bleed will give a total of 3 u prbc, 3 ffp and 10 pack platelets today d/w . continue steroids, cefepime, alb inh, dulera inh. 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 is initiated on HD this admission. continue norvasc, lipitor, coreg, hydralazine. Has around 35lbs weight gain from admission, needs volume removal as tolerated with HD d/w and gave full updates and guarded prognosis 05/22, d/w son and RN working in [facility] in [place], full updates were given including guarded to poor prognosis, he is driving to come see his mom and will be in to see her in am, Jimenez also mentions that pt was reluctant to get hospitalized de spite being sob and known exposure to covid. Is full code for now. hemostable has lots of oral secretions, on scopalamine tts. PTT and fibrin degradation products are abnormal, likely DIC, is off heparin from 05/22. repeat INR, PTT in am, serial H/H, transfuse if hb is less than 7g
[2020-05-24 18:26] LABS: Hemoglobin 9.2 g/dL (12.0-16.0); Platelet Count 178 thou/uL (130-400)
[2020-05-24 18:45] LABS: Glucose 145 mg/dL (80-115)
[2020-05-24] MEDS: Pantoprazole 40 MG VIAL IVP SCH (21:54)
[2020-05-24 22:43] LABS: Hemoglobin 9.7 g/dL (12.0-16.0); Platelet Count 195 thou/uL (130-400)
[2020-05-24 22:50] LABS: Glucose 104 mg/dL (80-115)
[2020-05-25] MEDS: Labetalol HCl 100 MG/20 ML VIAL SLOW IVP PRN ×2 (00:09→23:16)
[2020-05-25 04:24] LABS: Potassium 3.1 mmol/L (3.5-5.1); Sodium 143 mmol/L (136-145)
[2020-05-25 04:25] LABS: ALT (SGPT) 30 U/L (8-55); AST (SGOT) 30 U/L (5-34); Albumin 2.7 g/dL (3.4-4.8); Alkaline Phosphatase 100 U/L (40-110); Anion Gap 23 mmol/L (10-20); BUN (Urea Nitrogen) 56 mg/dL (9.8-20.1); Bilirubin, Total 0.7 mg/dL (0.2-1.2); Calc. Creatinine Clearance 30 mL/min (70-130); Calcium 7.5 mg/dL (7.8-10.44); Carbon Dioxide 22 mmol/L (23-31); Chloride 101 mmol/L (98-107); Globulin 2.4 g/dL (2.4-3.5); Glucose 106 mg/dL (80-115); Protein, Total 5.1 g/dL (6.0-8.3)
[2020-05-25 04:29] LABS: INR-International Normal Ratio 1.1; PTT 40.3 sec (22.9-36.1); Prothrombin Time 14.3 sec (12.0-14.7)
[2020-05-25 05:20] LABS: Band 8 % (5-11); Hemoglobin 8.9 g/dL (12.0-16.0); Lymphocytes 3 % (21-51); MDiff Complete? YES; Mean Corpuscular HGB CONC 34.4 g/dL (32.0-36.0); Mean Corpuscular Hemoglobin 29.4 pg (27.0-31.0); Mean Corpuscular Volume 85.6 fL (78.0-98.0); Mean Platelet Volume 9.1 fL (7.4-10.4); Neutrophil 89 % (42-75); Nucleated RBC 1 % (0); Platelet Count 173 thou/uL (130-400); RBC Distribution Width 13.6 % (11.5-14.5); Red Blood Cell (RBC) Count 3.03 mill/uL (4.20-5.40); White Blood Cell (WBC) Count 21.4 thou/uL (4.8-10.8)
[2020-05-25] MEDS: Mometasone 200 MCG/Formoterol 5 MCG 120 PUFF INHALER INH SCH ×2 (08:08→18:32)
--- NOTE | 2020-05-25 08:32 | OP ---
DATE OF PROCEDURE: 05/24/2020 PREOPERATIVE DIAGNOSES: 1. Gastrointestinal hemorrhage. 2. Respiratory failure secondary to COVID. 3. Sepsis. 4. End-stage renal disease. 5. Coagulation effect, status post platelets and FFP today. POSTOPERATIVE DIAGNOSIS: 1. NG tube trauma in the stomach with deep ulcer along the greater curve of the distal body, not actively bleeding. 2. Small 5 mm ulcer with visible vessel, active bleeding likely from suction from her NG tube. Injected with 1:10,000 epinephrine 6 mL and cauterized with 10-Spanish heater probe and then a hemoclip was placed with resolution of bleeding. 3. Mild gastritis, likely related to sepsis and acute illness. 4. Mild distal esophagitis with no bleeding or ulcer. RECOMMENDATIONS: 1. IV PPI q.12. 2. Hold off on anticoagulation for 48 hours before resuming. 3. Transfuse to keep hemoglobin greater than 7. 4. Findings discussed with patient's daughter on the phone, nurse and ICU physician. ANESTHESIA: Patient already intubated. She was given 100 mcg of propofol and her respiratory rate was increased. PROCEDURE IN DETAIL: After the patient was adequately sedated, a bite block was placed in the incisural orifice. The endoscope was advanced to the esophagus, stomach, and second and third portions of the duodenum and slowly removed. Esophagus notable for small erosions in the distal esophagus without evidence of bleeding, clots or visible vessels. The scope was advanced to the stomach where a large ulcer was noted in the distal aspect of the greater curve of stomach, looks like this is mainly related to NG tube trauma. No discrete bleeding site was identified, this may also just be severe gastritis from her acute inflammatory condition. No visible vessels were seen or active bleeding was seen. Retroflexed views revealed a small ulceration on the posterior wall of the stomach more proximally with a visible vessel with active clot. This clot was knocked off and a visible vessel was noted and this was injected with 1:10,000 epinephrine and then cauterized with 10-Spanish heater probe and a clip was placed. The scope was advanced to the duodenum, which was normal with clear bile there. Bringing the scope back in the stomach, retroflexed views were normal except for the NG tube trauma. I suspect this probably would not have bled if it had not been for her anticoagulated state. Hopefully with the correction of that and IV PPIs and the endoscopic intervention, this will all resolve. The scope was removed. The patient tolerated procedure well. There were no complications. Job ID: [id number]
[2020-05-25] MEDS ORDERED: DC Sedation Protocol FS ONE (08:57)
--- NOTE | 2020-05-25 09:21 | PRG ---
DATE OF SERVICE: 05/25/2020 SUBJECTIVE: Genia Reed is a 70-year-old female, had been on almost CPAP for 3 days. She had a GI bleed, which is addressed yesterday by GI, underwent endoscopy and cauterized. Saturations are 90% on 40%. She is being dialyzed this morning. OBJECTIVE: VITAL SIGNS: Blood pressure 180/80, pulse 80, respirations 18. CHEST: No wheezing. No crackles. CARDIAC: Normal S1 and S2. No gallops. ABDOMEN: No masses. LABORATORY DATA: Hemoglobin and hematocrit are 8 and 26, platelet count is normal, white count 21,000. Liver function creatinine 2.9 . ASSESSMENT: Respiratory failure, lim positive pneumonia, GI bleed, renal failure. PLAN: She is ready to be extubated hopefully post dialysis today. She is probably going to need nutritional support. Otherwise, she is still on steroids, supportive care. One-half hour critical care time. Job ID: [id number]
[2020-05-25] MEDS ORDERED: Heparin 10,000 UNITS/ 10 ML VIAL ONE (10:01)
[2020-05-25 10:58] LABS: Hemoglobin 9.6 g/dL (12.0-16.0); Platelet Count 194 thou/uL (130-400)
--- NOTE | 2020-05-25 11:30 | PRG ---
DATE OF SERVICE: 05/25/2020 SUBJECTIVE: A 70-year-old female, being seen for end-stage renal disease. The patient is intubated. PHYSICAL EXAMINATION: General: The patient is resting. Vital Signs: Afebrile, pulse 87, breathing at 16, blood pressure 181/83. HEENT: Head normocephalic and atraumatic. Eyes intact, no ulcers. Nose intact, no ulcers. Ears intact, no ulcers. Neck: Supple. No JVD. Chest: Symmetrical and clear. Cardiovascular: Shows S1 and S2, no rub, no murmur. Gastrointestinal: Abdomen is soft, bowel sounds positive. Extremities: Show no edema or ulcers. Skin: Shows no rash or petechiae. Musculoskeletal: Shows no joint swelling or stiffness. Genitourinary: Shows no Do or CVA tenderness. Neurologic: The patient is resting. LABORATORY DATA: Hemoglobin 9.6, potassium 3.1. ASSESSMENT AND PLAN: 1. Stage dialysis. 2. Hypertension and volume overload. We will plan dialysis. 3. Hypokalemia. We will use a 4K bath. 4. GI bleeding. Management per primary team. 5. Prognosis is extremely poor. Job ID: [id number]
--- NOTE | 2020-05-25 11:45 | PRG ---
DATE OF SERVICE: 05/25/2020 SUBJECTIVE: Ms. Reed remains intubated. She is presently on hemodialysis. Nurses note she continues to ooze from her IV lines, groin area. She has had some dark stools about the same color yesterday, but not as much. Medications reviewed. She continues to receive: 1. DDAVP b.i.d. 2. Solu-Medrol . 3. Protonix 40 IV q.12, just started yesterday. 4. Scopolamine. OBJECTIVE: VITAL SIGNS: Temperature 99.1, pulse 87, blood pressure 181/83. GENERAL: She is intubated and sedated. She is obese. LUNGS: Decreased breath sounds in the bases. ABDOMEN: Protuberant, but not tender. NG tube has no blood return. LABORATORY DATA: White count 21,000; hemoglobin 8.9 at 3, 9.6 at 10. I believe she received four units of blood. One on the , one in the morning on the , and two yesterday afternoon with dialysis. She also received 3 units of FFP yesterday and 6 packs of platelets yesterday. PTT is 40 today, down from 63 yesterday. INR 1.1. PH 7.4, O2 of 92%. Sodium 143, potassium 3.1, BUN and creatinine of 56 and 2.96. AST 30, ALT 30, alkaline phosphatase 100. CRP 5.9, albumin 2.7, protein 5.1. ASSESSMENT: GI hemorrhage secondary to anticoagulation and NG tube trauma. Visible vessel at an NG tube port site was noted with clot and active bleeding, which was cauterized and treated. She has a large erosion in the distal body of the stomach on the greater curve. Presently, she was hemodynamically stable with no signs of active hemorrhage, and a stable hemoglobin since her transfusion last night. RECOMMENDATIONS: 1. Can restart tube feeds. 2. Agree with continuing try to correct platelet function and DDAVP if she continues to bleed. It may be reasonable to give her another 10 pack of platelets. 3. Okay to start tube feeding. Job ID: [id number]
[2020-05-25] MEDS: Amlodipine 10 MG TAB PER TUBE SCH (14:43)
[2020-05-25] MEDS: methylPREDNISolone Sod Succ 40 MG VIAL IVP SCH ×2 (14:44→21:31)
[2020-05-25] MEDS: Pantoprazole 40 MG VIAL IVP SCH ×2 (14:45→21:31)
[2020-05-25] MEDS: Insulin Glargine 5 UNITS in Pre-Filled Syringe SC SCH (14:50)
[2020-05-25] MEDS: Scopolamine 1.5 mg/72 hour Patch TOP SCH (15:14)
--- NOTE | 2020-05-25 15:39 | PDOC.HOSPP ---
- Subjective Encounter Date: 05/25/20 Encounter Time: 10:00 Subjective: off sedation on vent, does not follow verbal stimuli or open eyes she tries to move her extremities - Objective Vital Signs & Weight: Vital Signs (12 hours) Temp Pulse Resp BP 05/25/20 14:43 92 157/65 H 05/25/20 14:39 92 05/25/20 11:03 90 05/25/20 08:09 87 05/25/20 06:00 15 05/25/20 04:00 99.1 F 17 Weight Admit Weight 186 lb 4.8 oz Weight 211 lb 6.773 oz Most Recent Monitor Data Heart Rate from ECG 89 NIBP 181/83 NIBP BP-Mean 115 Respiration from ECG 18 SpO2 98 I&O: 05/24/20 05/25/20 05/26/20 06:59 06:59 06:59 Intake Total 1424 1670 350 Output Total 1150 795 Balance 274 875 350 Result Diagrams: 05/25/20 10:47 05/25/20 03:30 Additional Labs: Accuchecks 05/25/20 05/25/20 10:47 04:52 POC Glucose 85 96 Hospitalist ROS - Medication Medications: Active Medications Generic Name Dose Route Start Last Admin Trade Name Freq PRN Reason Stop Dose Admin Albuterol Sulfate 2 puff 05/05/20 03:59 05/05/20 07:40 Albuterol 200 Puff (6.7gm Inhaler) INH 2 puff [id number] PRN Administration Wheezing Amlodipine Besylate 10 mg 05/15/20 09:00 05/25/20 14:43 Amlodipine 10 Mg Tab PER TUBE 10 mg DAILY ESTER Administration Desmopressin Acetate 1 mcg 05/24/20 21:00 05/25/20 14:45 Desmopressin Acetate 4 Mcg/Ml Vial IVP 05/25/20 21:01 1 mcg BID ETSER Administration Insulin Glargine 5 units/ 0.05 mls @ 0 mls/hr 05/13/20 09:00 05/25/20 14:50 Miscellaneous Medication SC Not Given QAM ESTER Insulin Human Regular 0 units 05/13/20 09:28 05/23/20 22:13 Insulin Regular 300 Units/3 Ml Vial SC 2 unit .MODERATE SLIDING SC PRN Administration Moderate Correctional Scale Labetalol HCl 20 mg 05/12/20 05:37 05/25/20 00:09 Labetalol Hcl 100 Mg/20 Ml Vial SLOW IVP 20 mg Q4H PRN Administration SBP >170 Methylprednisolone Sodium Succinate 40 mg 05/23/20 21:00 05/25/20 14:44 Methylprednisolone Sod Succ 40 Mg Vial IVP 40 mg BID ESTER Administration Mometasone Furoate/Formoterol Fumar 2 puff 05/09/20 18:30 05/25/20 08:08 Mometasone 200 Mcg/Formoterol 5 Mcg 120 Puff Inhaler INH 2 puff BID-RT ESTER Administration Ondansetron HCl 4 mg 05/03/20 17:50 05/23/20 16:00 Ondansetron Pf 4 Mg/2 Ml Vial IVP 4 mg Q6H PRN Administration Nausea/Vomiting Pantoprazole Sodium 40 mg 05/24/20 21:00 05/25/20 14:45 Pantoprazole 40 Mg Vial IVP 40 mg Q12HR ESTER Administration Scopolamine 1.5 mg 05/22/20 15:15 05/25/20 15:14 Scopolamine 1.5 Mg/72 Hour Patch TOP 1.5 mg Q3D ESTER Administration - Exam General Appearance: ill appearing Eye: PERRL, anicteric sclera ENT: no oropharyngeal lesions, moist mucosa Neck: supple, no JVD Heart: RRR, no murmur Respiratory: no wheezes, rales, rhonchi Gastrointestinal: soft, non-tender, non-distended, normal bowel sounds, no guarding, no rigidity Extremities: no cyanosis, 2+ LE edema Skin: normal turgor, no rashes Neurological: cranial nerve grossly intact, no focal deficits Hosp A/P (1) Pneumonia due to COVID-19 virus Code(s): U07.1 - COVID-19; J12.89 - OTHER VIRAL PNEUMONIA Status: Acute (2) Acute kidney injury superimposed on CKD Code(s): N17.9 - ACUTE KIDNEY FAILURE, UNSPECIFIED; N18.9 - CHRONIC KIDNEY DISEASE, UNSPECIFIED Status: Acute (3) Acute respiratory failure with hypoxia Code(s): J96.01 - ACUTE RESPIRATORY FAILURE WITH HYPOXIA Status: Acute (4) HTN (hypertension) Code(s): I10 - ESSENTIAL (PRIMARY) HYPERTENSION Status: Chronic Qualifiers: Hypertension type: essential hypertension Qualified Code(s): I10 - Essential (primary) hypertension (5) Dyslipidemia Code(s): E78.5 - HYPERLIPIDEMIA, UNSPECIFIED Status: Chronic (6) Peripheral neuropathy Code(s): G62.9 - POLYNEUROPATHY, UNSPECIFIED Status: Chronic Qualifiers: Peripheral neuropathy type: polyneuropathy, unspecified Qualified Code(s): G62.9 - Polyneuropathy, unspecified (7) Anemia of renal disease Code(s): D63.1 - ANEMIA IN CHRONIC KIDNEY DISEASE Status: Chronic (8) Metabolic acidosis Code(s): E87.2 - ACIDOSIS Status: Resolved (9) Physical deconditioning Code(s): R53.81 - OTHER MALAISE Status: Acute (10) Obesity (BMI 30.0-34.9) Code(s): E66.9 - OBESITY, UNSPECIFIED Status: Chronic (11) DIC (disseminated intravascular coagulation) Code(s): D65 - DISSEMINATED INTRAVASCULAR COAGULATION Status: Acute (12) GI bleed Code(s): K92.2 - GASTROINTESTINAL HEMORRHAGE, UNSPECIFIED Status: Acute Qualifiers: GI bleed type/associated pathology: anorectal hemorrhage Qualified Code(s): K62.5 - Hemorrhage of anus and rectum - Plan Has severe coagulapathy from DIC which is slowly getting corrected, ptt is around 40's this am, Hb around 8g will give 3 ffp today her heparin dvt prophylaxis dose was dc'd on 05/22 due to DIC. continue protonix iv q12h (previously was on pepcid bid), steroid taper per pulm adv, cefepime, alb inh, dulera inh. 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 was initiated on HD this admission. continue norvasc, lipitor, coreg, hydralazine. Had around 35lbs weight gain from admission, is losing well with volume removal as tolerated with HD. d/w and gave full updates and guarded prognosis 05/22, d/w son and RN working in [facility] facility in [place], full updates were given including guarded to poor prognosis 05/24. d/w at bedside today and gave an update about all labs, imaging and current treatment plan. she wants her to be full code for now. has lots of oral secretions, on scopalamine tts. repeat INR, PTT in am, serial H/H, transfuse if hb is less than 7g had egd done this am, findings reviewed.
[2020-05-25] MEDS: Famotidine/PF 20 mg/2ml Vial SLOW IVP SCH (18:42)
[2020-05-25] MEDS: Acetaminophen 650 MG/20.3 ML UDCUP PER TUBE PRN (23:24)
[2020-05-26 05:13] LABS: INR-International Normal Ratio 1.3; PTT 41.3 sec (22.9-36.1); Prothrombin Time 16.3 sec (12.0-14.7)
[2020-05-26 05:38] LABS: Albumin 2.6 g/dL (3.4-4.8); Anion Gap 23 mmol/L (10-20); BUN (Urea Nitrogen) 33 mg/dL (9.8-20.1); Bilirubin, Total 0.7 mg/dL (0.2-1.2); Calc. Creatinine Clearance 31 mL/min (70-130); Calcium 7.5 mg/dL (7.8-10.44); Carbon Dioxide 22 mmol/L (23-31); Chloride 100 mmol/L (98-107); Globulin 2.6 g/dL (2.4-3.5); Glucose 147 mg/dL (80-115); Protein, Total 5.2 g/dL (6.0-8.3); Sodium 142 mmol/L (136-145)
[2020-05-26 05:39] LABS: ALT (SGPT) 23 U/L (8-55); AST (SGOT) 25 U/L (5-34); Alkaline Phosphatase 99 U/L (40-110)
[2020-05-26 05:44] LABS: Potassium 2.7 mmol/L (3.5-5.1)
[2020-05-26 05:55] LABS: Band 7 % (5-11); Hemoglobin 7.2 g/dL (12.0-16.0); Lymphocytes 8 % (21-51); MDiff Complete? YES; Mean Corpuscular HGB CONC 34.4 g/dL (32.0-36.0); Mean Corpuscular Volume 87.4 fL (78.0-98.0); Mean Platelet Volume 8.7 fL (7.4-10.4); Monocytes 3 % (0-10); Neutrophil 82 % (42-75); Nucleated RBC 1 % (0); Platelet Count 162 thou/uL (130-400); RBC Distribution Width 13.7 % (11.5-14.5); Schistocytes SLIGHT = 2-5 cells (100X) (0-1/hpf); White Blood Cell (WBC) Count 17.7 thou/uL (4.8-10.8)
[2020-05-26] MEDS ORDERED: Potassium Bicarbonate/Cit Ac 20 MEQ TAB PER TUBE SCH (06:45)
[2020-05-26] MEDS: Mometasone 200 MCG/Formoterol 5 MCG 120 PUFF INHALER INH SCH ×2 (07:38→18:24)
[2020-05-26] MEDS: Acetaminophen 650 MG/20.3 ML UDCUP PER TUBE PRN ×2 (08:18→16:44)
[2020-05-26] MEDS: Amlodipine 10 MG TAB PER TUBE SCH (08:18)
[2020-05-26] MEDS: Pantoprazole 40 MG VIAL IVP SCH ×2 (08:19→20:13)
[2020-05-26] MEDS: methylPREDNISolone Sod Succ 40 MG VIAL IVP SCH ×2 (08:19→20:13)
[2020-05-26] MEDS: Insulin Glargine 5 UNITS in Pre-Filled Syringe SC SCH (08:19)
--- NOTE | 2020-05-26 09:32 | PDOC.HOSPP ---
- Subjective Encounter Date: 05/26/20 Encounter Time: 09:30 Subjective: Ms. Reed was seen today in follow-up of COVID pneumonia, and respiratory failure. She is intubated, and sedated. - Objective Vital Signs & Weight: Vital Signs (12 hours) Temp Pulse Resp BP 05/26/20 08:18 98 05/26/20 07:39 98 05/26/20 07:00 100.8 F H 05/26/20 06:00 29 H 05/26/20 04:00 39 H 05/26/20 02:19 93 152/67 H 05/26/20 02:00 22 H 05/26/20 00:24 101 F H 05/26/20 00:00 35 H 05/25/20 23:57 94 173/78 H 05/25/20 23:54 101 F H 05/25/20 23:24 101.5 F H 99 35 H 173/78 H 05/25/20 23:16 103 H 173/78 H 05/25/20 22:02 103 H 154/68 H 05/25/20 22:00 24 H Weight Admit Weight 186 lb 4.8 oz Weight 3.355 oz Most Recent Monitor Data Heart Rate from ECG 99 NIBP 169/85 NIBP BP-Mean 113 Respiration from ECG 51 SpO2 92 I&O: 05/25/20 05/26/20 05/27/20 06:59 06:59 06:59 Intake Total 1670 720 Output Total 795 10 Balance 875 710 Result Diagrams: 05/26/20 03:30 05/26/20 03:30 Additional Labs: Accuchecks 05/25/20 05/25/20 05/25/20 22:39 18:21 16:13 POC Glucose 112 H 93 73 05/25/20 10:47 POC Glucose 85 Hospitalist ROS - Medication Medications: Active Medications Generic Name Dose Route Start Last Admin Trade Name Freq PRN Reason Stop Dose Admin Acetaminophen 650 mg 05/25/20 18:57 05/26/20 08:18 Acetaminophen 650 Mg/20.3 Ml Udcup PER TUBE 650 mg Q4H PRN Administration Fever > 101 Albuterol Sulfate 2 puff 05/05/20 03:59 05/05/20 07:40 Albuterol 200 Puff (6.7gm Inhaler) INH 2 puff [id number] PRN Administration Wheezing Amlodipine Besylate 10 mg 05/15/20 09:00 05/26/20 08:18 Amlodipine 10 Mg Tab PER TUBE 10 mg DAILY ESTER Administration Insulin Glargine 5 units/ 0.05 mls @ 0 mls/hr 05/13/20 09:00 05/26/20 08:19 Miscellaneous Medication SC 0.05 mls QAM ESTER Administration Insulin Human Regular 0 units 05/13/20 09:28 05/23/20 22:13 Insulin Regular 300 Units/3 Ml Vial SC 2 unit .MODERATE SLIDING SC PRN Administration Moderate Correctional Scale Labetalol HCl 20 mg 05/12/20 05:37 05/25/20 23:16 Labetalol Hcl 100 Mg/20 Ml Vial SLOW IVP 20 mg Q4H PRN Administration SBP >170 Methylprednisolone Sodium Succinate 40 mg 05/23/20 21:00 05/26/20 08:19 Methylprednisolone Sod Succ 40 Mg Vial IVP 40 mg BID ESTER Administration Mometasone Furoate/Formoterol Fumar 2 puff 05/09/20 18:30 05/26/20 07:38 Mometasone 200 Mcg/Formoterol 5 Mcg 120 Puff Inhaler INH 2 puff BID-RT ESTER Administration Ondansetron HCl 4 mg 05/03/20 17:50 05/23/20 16:00 Ondansetron Pf 4 Mg/2 Ml Vial IVP 4 mg Q6H PRN Administration Nausea/Vomiting Pantoprazole Sodium 40 mg 05/24/20 21:00 05/26/20 08:19 Pantoprazole 40 Mg Vial IVP 40 mg Q12HR ESTER Administration Scopolamine 1.5 mg 05/22/20 15:15 05/25/20 15:14 Scopolamine 1.5 Mg/72 Hour Patch TOP 1.5 mg Q3D ESTER Administration - Exam Eye: PERRL, anicteric sclera Heart: RRR, no murmur, no gallops, no rubs, normal peripheral pulses Respiratory: rhonchi (+ bilateral rhonchi, and rales at the bases) Gastrointestinal: soft, non-tender, non-distended, normal bowel sounds, no palpable masses Extremities: 1+ LE edema (palpable d.p. pulses bilaterally) Hosp A/P (1) Pneumonia due to COVID-19 virus Code(s): U07.1 - COVID-19; J12.89 - OTHER VIRAL PNEUMONIA Status: Acute (2) Diabetes Code(s): E11.9 - TYPE 2 DIABETES MELLITUS WITHOUT COMPLICATIONS Status: Chronic Qualifiers: Diabetes mellitus type: type 2 Diabetes mellitus complication detail: with nephropathy 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 (3) Dyslipidemia Code(s): E78.5 - HYPERLIPIDEMIA, UNSPECIFIED Status: Chronic (4) HTN (hypertension) Code(s): I10 - ESSENTIAL (PRIMARY) HYPERTENSION Status: Chronic Qualifiers: Hypertension type: essential hypertension Qualified Code(s): I10 - Essential (primary) hypertension (5) Acute blood loss anemia Code(s): D62 - ACUTE POSTHEMORRHAGIC ANEMIA Status: Acute (6) DIC (disseminated intravascular coagulation) Code(s): D65 - DISSEMINATED INTRAVASCULAR COAGULATION Status: Acute (7) GI bleed Code(s): K92.2 - GASTROINTESTINAL HEMORRHAGE, UNSPECIFIED Status: Acute Qualifiers: GI bleed type/associated pathology: anorectal hemorrhage Qualified Code(s): K62.5 - Hemorrhage of anus and rectum - Plan * Acute respiratory failure with hypoxemia- due to COVID pneumonia- continue supportive care. She continues to require mechanical ventilation support * Continue Solumedrol IV * HTN- blood pressure is stable * DM- blood glucose is stable- continue low dose Lantus, and SSI * Acute on chronic kidney injury- improving * Acute blood loss anemia- from GI- bleed- continue IV Protonix, * DIC- due to COVID
[2020-05-26] MEDS ORDERED: Heparin 10,000 UNITS/ 10 ML VIAL ONE (09:57)
[2020-05-26] MEDS: Insulin Regular 300 UNITS/3 ML VIAL SC PRN ×4 (10:46→20:45)
--- NOTE | 2020-05-26 10:57 | PRG ---
DATE OF SERVICE: 05/26/2020 SUBJECTIVE: A 70-year-old female, being seen for end-stage renal disease. The patient remains intubated and is difficult to oxygenate. PHYSICAL EXAMINATION: The patient is resting. General: The patient is awake and alert. Vital Signs: Afebrile, pulse 98, breathing at 16, blood pressure 169/85. HEENT: Head normocephalic and atraumatic. Eyes intact, no ulcers. Nose intact, no ulcers. Ears intact, no ulcers. Neck: Supple. No JVD. Chest: Symmetrical and clear. Cardiovascular: Shows S1 and S2, no rub, no murmur. Gastrointestinal: Abdomen is soft, bowel sounds positive. Extremities: Show no edema or ulcers. Skin: Shows no rash or petechiae. Musculoskeletal: Shows no joint swelling or stiffness. Genitourinary: Shows no Do or CVA tenderness. Neurologic: The patient is resting. LABORATORY DATA: Show hemoglobin 7.2, platelets were 162. Potassium 2.7. ASSESSMENT AND PLAN: 1. Chronic kidney disease stage 6 with volume overload. We will plan dialysis per schedule for ultrafiltration. 2. Hypokalemia. We will replace with 20 mEq of potassium and recheck potassium. 3. Anemia, we will plan transfusion due to continued GI losses. 4. Overall prognosis remains poor. No family member was available at the time of examination. Job ID: [id number]
[2020-05-26 11:26] LABS: Hemoglobin 6.9 g/dL (12.0-16.0); Platelet Count 160 thou/uL (130-400)
[2020-05-26 11:45] LABS: Anion Gap 23 mmol/L (10-20); BUN (Urea Nitrogen) 36 mg/dL (9.8-20.1); Calc. Creatinine Clearance 0 mL/min (70-130); Calcium 7.4 mg/dL (7.8-10.44); Carbon Dioxide 20 mmol/L (23-31); Chloride 101 mmol/L (98-107); Glucose 227 mg/dL (80-115); Sodium 141 mmol/L (136-145)
[2020-05-26] MEDS ORDERED: Phytonadione 10 MG in Sodium Chloride 0.9% 50 ML IVPB SCH (12:45)
--- NOTE | 2020-05-26 12:59 | PRG ---
DATE OF SERVICE: 05/26/2020 35 minutes of critical care time. SUBJECTIVE: The patient remains intubated on mechanical ventilation. She is off all sedation and is barely responsive. OBJECTIVE: VITAL SIGNS: Temperature 100.8, T-max 102, pulse 94, blood pressure 150/71, and O2 saturation 93%. HEENT: Unremarkable except for being intubated. NECK: No JVD. CHEST: Clear bilaterally. CARDIAC: S1, S2. Regular. ABDOMEN: Obese. EXTREMITIES: Edematous. LABORATORY DATA: INR 1.3, PTT 41.3. White blood cell count 17.7, hemoglobin 6.9, hematocrit 19.9, and platelet count 160. Sodium 141, potassium 3.0, chloride 101, CO2 of 20, BUN 36, creatinine 2.8, glucose 227. ASSESSMENT: 1. COVID-19 pneumonia. 2. Acute respiratory failure, requiring mechanical ventilation. 3. Gastrointestinal bleeding/anemia due to blood loss. PLAN: 1. I will go and give her one more unit PRBCs. 2. She is not weanable at this time. 3. Continue basic supportive care otherwise. Job ID: [id number]
--- NOTE | 2020-05-26 16:49 | PRG ---
DATE OF SERVICE: 05/26/2020 SUBJECTIVE: Ms. Reed remains on the ventilator. She had one bowel movement today with old blood. She is getting a unit of blood today. She remains intubated. She remains on dialysis. OBJECTIVE: VITAL SIGNS: Temperature 99.5, T-max 101 on the 15th, pulse 93, blood pressure 160/75. GENERAL: She is sedated on the ventilator. No distress. NG tube clear bile. ABDOMEN: Nontender. LABORATORY DATA: White count 17.7. Hemoglobin was 6.9 at 11 o'clock, was 7.2 at 3:00 a.m., and 9.6 yesterday at 10:47. INR 1.3, PTT 41.3. Sodium 141, potassium 3, BUN and creatinine of 36 and 2.93. ASSESSMENT: GI hemorrhage secondary to ulcers in the stomach, probably from stress ulceration, also NG tube trauma. Bleeding site clipped and cauterized. RECOMMENDATIONS: 1. Continue IV PPI. 2. Transfuse as needed to keep hemoglobin greater than 7. If there are signs of acute hemorrhage, we can consider repeat endoscopy. 3. Would avoid anticoagulation at this time. Job ID: [id number]
[2020-05-26] MEDS: traMADol HCl 50 MG TAB PER TUBE SCH (20:13)
[2020-05-27 04:12] LABS: #Lymphocytes 0.8 thou/uL (1.20-3.40); #Monocytes 0.7 thou/uL (0.11-0.59); #Neutrophils 11.4 thou/uL (1.40-6.50); %Basophils 0.3 % (0.0-1.0); %Eosinophils 0.2 % (0.0-10.0); %Lymphocytes 6.2 % (21.0-51.0); %Monocytes 5.2 % (0.0-10.0); %Neutrophils 88.2 % (42.0-75.0); Hemoglobin 8.5 g/dL (12.0-16.0); Mean Corpuscular HGB CONC 33.7 g/dL (32.0-36.0); Mean Corpuscular Hemoglobin 29.5 pg (27.0-31.0); Mean Corpuscular Volume 87.7 fL (78.0-98.0); Mean Platelet Volume 8.8 fL (7.4-10.4); Platelet Count 186 thou/uL (130-400); RBC Distribution Width 13.9 % (11.5-14.5); Red Blood Cell (RBC) Count 2.86 mill/uL (4.20-5.40); White Blood Cell (WBC) Count 12.9 thou/uL (4.8-10.8)
[2020-05-27 04:14] LABS: INR-International Normal Ratio 1.1; Prothrombin Time 14.6 sec (12.0-14.7)
[2020-05-27 04:15] LABS: PTT 36.9 sec (22.9-36.1)
[2020-05-27 04:36] LABS: ALT (SGPT) 23 U/L (8-55); AST (SGOT) 24 U/L (5-34); Albumin 2.8 g/dL (3.4-4.8); Alkaline Phosphatase 117 U/L (40-110); Anion Gap 16 mmol/L (10-20); BUN (Urea Nitrogen) 30 mg/dL (9.8-20.1); Bilirubin, Total 0.7 mg/dL (0.2-1.2); Calc. Creatinine Clearance 0 mL/min (70-130); Calcium 7.9 mg/dL (7.8-10.44); Carbon Dioxide 28 mmol/L (23-31); Chloride 100 mmol/L (98-107); Globulin 3.1 g/dL (2.4-3.5); Glucose 173 mg/dL (80-115); Protein, Total 5.9 g/dL (6.0-8.3); Sodium 141 mmol/L (136-145)
[2020-05-27 04:39] LABS: Potassium 2.8 mmol/L (3.5-5.1)
[2020-05-27] MEDS: Insulin Regular 300 UNITS/3 ML VIAL SC PRN ×4 (05:47→22:32)
[2020-05-27] MEDS: Mometasone 200 MCG/Formoterol 5 MCG 120 PUFF INHALER INH SCH ×2 (06:44→19:58)
[2020-05-27] MEDS: Potassium Bicarbonate/Cit Ac 20 MEQ TAB PER TUBE SCH ×2 (06:47→08:21)
[2020-05-27] MEDS: Amlodipine 10 MG TAB PER TUBE SCH (08:19)
[2020-05-27] MEDS: Pantoprazole 40 MG VIAL IVP SCH ×2 (08:20→20:46)
[2020-05-27] MEDS: methylPREDNISolone Sod Succ 40 MG VIAL IVP SCH ×2 (08:20→20:46)
[2020-05-27] MEDS: Insulin Glargine 5 UNITS in Pre-Filled Syringe SC SCH (08:27)
[2020-05-27] MEDS: Acetaminophen 650 MG/20.3 ML UDCUP PER TUBE PRN ×2 (08:34→14:32)
--- NOTE | 2020-05-27 09:54 | PDOC.HOSPP ---
- Subjective Encounter Date: 05/27/20 Encounter Time: 09:53 Subjective: Ms. Reed was seen today in follow-up od COVID pneumonia and renal failure. She is intubated. She will grimace when she hears your voice, and she tried to open her eyes. No complaints voiced by staff. - Objective Vital Signs & Weight: Vital Signs (12 hours) Temp Pulse Resp BP Pulse Ox 05/27/20 08:34 102.4 F H 05/27/20 08:19 96 185/84 H 05/27/20 06:44 96 32 H 95 05/27/20 06:35 93 176/87 H 05/27/20 06:00 29 H 05/27/20 04:00 28 H 05/27/20 02:00 20 05/27/20 01:58 93 178/82 H 05/27/20 00:00 31 H 05/26/20 22:00 29 H 05/26/20 21:56 83 155/81 H Weight Admit Weight 186 lb 4.8 oz Weight 3.284 oz Most Recent Monitor Data Heart Rate from ECG 93 NIBP 170/83 NIBP BP-Mean 112 Respiration from ECG 34 SpO2 97 I&O: 05/26/20 05/27/20 05/28/20 06:59 06:59 06:59 Intake Total 720 1704 Output Total 10 0 Balance 710 1704 Result Diagrams: 05/27/20 03:45 05/27/20 03:45 Additional Labs: Accuchecks 05/27/20 05/26/20 05/26/20 08:25 20:35 16:33 POC Glucose 167 H 190 H 190 H 05/26/20 10:08 POC Glucose 203 H Hospitalist ROS - Medication Medications: Active Medications Generic Name Dose Route Start Last Admin Trade Name Freq PRN Reason Stop Dose Admin Acetaminophen 650 mg 05/25/20 18:57 05/27/20 08:34 Acetaminophen 650 Mg/20.3 Ml Udcup PER TUBE 650 mg Q4H PRN Administration Fever > 101 Albuterol Sulfate 2 puff 05/05/20 03:59 05/05/20 07:40 Albuterol 200 Puff (6.7gm Inhaler) INH 2 puff [id number] PRN Administration Wheezing Amlodipine Besylate 10 mg 05/15/20 09:00 05/27/20 08:19 Amlodipine 10 Mg Tab PER TUBE 10 mg DAILY ESTER Administration Insulin Glargine 5 units/ 0.05 mls @ 0 mls/hr 05/13/20 09:00 05/27/20 08:27 Miscellaneous Medication SC 0.05 mls QAM ESTER Administration Insulin Human Regular 0 units 05/13/20 09:28 05/27/20 08:28 Insulin Regular 300 Units/3 Ml Vial SC 2 unit .MODERATE SLIDING SC PRN Administration Moderate Correctional Scale Labetalol HCl 20 mg 05/12/20 05:37 05/25/20 23:16 Labetalol Hcl 100 Mg/20 Ml Vial SLOW IVP 20 mg Q4H PRN Administration SBP >170 Methylprednisolone Sodium Succinate 40 mg 05/23/20 21:00 05/27/20 08:20 Methylprednisolone Sod Succ 40 Mg Vial IVP 40 mg BID ESTER Administration Mometasone Furoate/Formoterol Fumar 2 puff 05/09/20 18:30 05/27/20 06:44 Mometasone 200 Mcg/Formoterol 5 Mcg 120 Puff Inhaler INH 2 puff BID-RT ESTER Administration Ondansetron HCl 4 mg 05/03/20 17:50 05/23/20 16:00 Ondansetron Pf 4 Mg/2 Ml Vial IVP 4 mg Q6H PRN Administration Nausea/Vomiting Pantoprazole Sodium 40 mg 05/24/20 21:00 05/27/20 08:20 Pantoprazole 40 Mg Vial IVP 40 mg Q12HR ESTER Administration Scopolamine 1.5 mg 05/22/20 15:15 05/25/20 15:14 Scopolamine 1.5 Mg/72 Hour Patch TOP 1.5 mg Q3D ESTER Administration Tramadol HCl 50 mg 05/26/20 21:00 05/26/20 20:13 Tramadol Hcl 50 Mg Tab PER TUBE 50 mg HS ESTER Administration - Exam Eye: anicteric sclera ENT: normocephalic atraumatic Heart: RRR, no murmur, no gallops, no rubs, normal peripheral pulses Respiratory: no wheezes, no ronchi, rales (+ fine rales at the bases) Gastrointestinal: soft, non-tender, non-distended, normal bowel sounds, no pal pable masses, no hepatomegaly Extremities: no cyanosis (pulses are diminished. 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 (3) Dyslipidemia Code(s): E78.5 - HYPERLIPIDEMIA, UNSPECIFIED Status: Chronic (4) HTN (hypertension) Code(s): I10 - ESSENTIAL (PRIMARY) HYPERTENSION Status: Chronic Qualifiers: Hypertension type: essential hypertension Qualified Code(s): I10 - Essential (primary) hypertension (5) Acute blood loss anemia Code(s): D62 - ACUTE POSTHEMORRHAGIC ANEMIA Status: Acute (6) DIC (disseminated intravascular coagulation) Code(s): D65 - DISSEMINATED INTRAVASCULAR COAGULATION Status: Acute (7) GI bleed Code(s): K92.2 - GASTROINTESTINAL HEMORRHAGE, UNSPECIFIED Status: Acute Qualifiers: GI bleed type/associated pathology: anorectal hemorrhage Qualified Code(s): K62.5 - Hemorrhage of anus and rectum (8) Hypokalemia Code(s): E87.6 - HYPOKALEMIA Status: Acute - Plan * Acute respiratory failure with hypoxemia- due to COVID pneumonia- continue sup portive care. She continues to require mechanical ventilation support * Continue Solumedrol IV * HTN- blood pressure is creeping up- will add Carvediolol, and Clonidine ( from her home medications) * DM- blood glucose is stable- continue low dose Lantus, and SSI * Acute on chronic kidney injury- stable- dialysis as per Nephrology * Acute blood loss anemia- from GI- bleed- continue IV Protonix, * Hypokalemia- Continue to replace Potassium * DIC- due to COVID
[2020-05-27 13:28] LABS: Magnesium 1.8 mg/dL (1.6-2.6)
--- NOTE | 2020-05-27 13:37 | PRG ---
DATE OF SERVICE: 05/27/2020 SUBJECTIVE: The patient remains intubated on mechanical ventilation. No acute changes overnight. OBJECTIVE: VITAL SIGNS: Temperature has been as high as 102.4, pulse 90, blood pressure 145/67, saturation 95%. 24-hour intake is 1704, output zero. HEENT: Unremarkable. NECK: No adenopathy or JVD. LUNGS: Coarse breath sounds. CARDIAC: S1 and S2. Regular. ABDOMEN: Soft. EXTREMITIES: No edema. LABORATORY DATA: White blood cell count 12.9, hematocrit 25.1, and platelet count 186. INR is 1.1. Sodium 141, potassium 2.8, chloride 100, CO2 of 28, BUN 30, creatinine 2.6, glucose 173. ASSESSMENT: 1. Fever. 2. COVID pneumonia. 3. Renal failure. 4. Gastrointestinal bleeding. PLAN: 1. Replace potassium. 2. Discuss tracheostomy possibility with family. I think they will probably proceed with that this week. 3. Not weanable otherwise secondary to encephalopathy. Job ID: [id number]
--- NOTE | 2020-05-27 16:32 | PRG ---
DATE OF SERVICE: 05/27/2020 SUBJECTIVE: A 70-year-old female, being seen for end-stage renal disease. The patient remains intubated. The patient is resting. PHYSICAL EXAMINATION: General: The patient is awake and alert. Vital Signs: Afebrile, pulse 85, breathing at 16, blood pressure 156/74. HEENT: Head normocephalic and atraumatic. Eyes intact, no ulcers. Nose intact, no ulcers. Ears intact, no ulcers. Neck: Supple. No JVD. Chest: Symmetrical and clear. Cardiovascular: Shows S1 and S2, no rub, no murmur. Gastrointestinal: Abdomen is soft, bowel sounds positive. Extremities: Show no edema or ulcers. Skin: Shows no rash or petechiae. Musculoskeletal: Shows no joint swelling or stiffness. Genitourinary: Shows no Do or CVA tenderness. Neurologic: Motor intact. Cranial nerves intact. LABORATORY DATA: Showed hemoglobin 8.5. Potassium is 3. ASSESSMENT AND PLAN: 1. Chronic kidney disease, stage 6. Plan dialysis per schedule. 2. Hypokalemia. The patient is using a 4K bath. We would recommend aggressive potassium replacement. 3. Anemia, stable. 4. Sepsis. We would recommend changing the dialysis catheter and central line. No indication for dialysis today. Job ID: [id number]
--- NOTE | 2020-05-27 18:37 | PRG ---
DATE OF SERVICE: 05/27/2020 SUBJECTIVE: Ms. Reed remains intubated in the ICU. MEDICATIONS: Reviewed. Continues on Protonix 40 IV q.12. OBJECTIVE: VITAL SIGNS: Temperature 101.7, respirations 21, pulse 85, blood pressure 145/80. ABDOMEN: Nontender. LABORATORY DATA: White count 12.9, down from 21,000 on the 15th; hemoglobin stable at 8.5, did receive blood for a hemoglobin of 6.9 yesterday. Received last transfusion on the , 1 unit. Platelets 186,000. Sodium 141, potassium 2.8, BUN and creatinine of 30 and 2.64. Liver function tests normal except for alkaline phosphatase of 117. ASSESSMENT: 1. COVID pneumonia, respiratory failure. 2. Gastrointestinal hemorrhage secondary to NG tube trauma and anticoagulation, status post endoscopy, resolved. 3. New fever. PLAN: 1. Nurse reports that they are going to remove one of her catheters as they think they may have become contaminated when she was having GI bleeding and bleeding from all of her IV sites when she was coagulopathic. We will defer to Internal Medicine for management of fever. 2. Continue tube feeds. Otherwise, we will follow along with you. Job ID: [id number]
[2020-05-27 19:11] LABS: Anion Gap 21 mmol/L (10-20); BUN (Urea Nitrogen) 44 mg/dL (9.8-20.1); Calc. Creatinine Clearance 0 mL/min (70-130); Calcium 7.8 mg/dL (7.8-10.44); Carbon Dioxide 23 mmol/L (23-31); Chloride 101 mmol/L (98-107); Glucose 140 mg/dL (80-115); Potassium 3.7 mmol/L (3.5-5.1); Sodium 141 mmol/L (136-145)
[2020-05-27] MEDS: traMADol HCl 50 MG TAB PER TUBE SCH (20:43)
[2020-05-27] MEDS: Carvedilol 6.25 MG TAB PER TUBE SCH (20:43)
[2020-05-27] MEDS: cloNIDine 0.2 MG TAB PER TUBE SCH (20:43)
[2020-05-28 04:38] LABS: INR-International Normal Ratio 1.2; Prothrombin Time 15.5 sec (12.0-14.7)
[2020-05-28 04:41] LABS: #Basophils 0.1 thou/uL (0.0-0.2); #Lymphocytes 0.6 thou/uL (1.20-3.40); #Monocytes 0.3 thou/uL (0.11-0.59); #Neutrophils 8.7 thou/uL (1.40-6.50); %Basophils 0.8 % (0.0-1.0); %Eosinophils 0.1 % (0.0-10.0); %Lymphocytes 6.1 % (21.0-51.0); %Monocytes 3.2 % (0.0-10.0); %Neutrophils 89.9 % (42.0-75.0); Hemoglobin 7.8 g/dL (12.0-16.0); Mean Corpuscular HGB CONC 33.4 g/dL (32.0-36.0); Mean Corpuscular Hemoglobin 29.9 pg (27.0-31.0); Mean Corpuscular Volume 89.4 fL (78.0-98.0); Mean Platelet Volume 8.6 fL (7.4-10.4); Platelet Count 171 thou/uL (130-400); RBC Distribution Width 14.1 % (11.5-14.5); Red Blood Cell (RBC) Count 2.59 mill/uL (4.20-5.40); White Blood Cell (WBC) Count 9.6 thou/uL (4.8-10.8)
[2020-05-28 05:00] LABS: ALT (SGPT) 24 U/L (8-55); AST (SGOT) 25 U/L (5-34); Albumin 2.5 g/dL (3.4-4.8); Alkaline Phosphatase 127 U/L (40-110); Anion Gap 15 mmol/L (10-20); BUN (Urea Nitrogen) 48 mg/dL (9.8-20.1); Bilirubin, Total 0.7 mg/dL (0.2-1.2); Calc. Creatinine Clearance 0 mL/min (70-130); Calcium 7.8 mg/dL (7.8-10.44); Carbon Dioxide 29 mmol/L (23-31); Chloride 100 mmol/L (98-107); Globulin 2.8 g/dL (2.4-3.5); Glucose 210 mg/dL (80-115); Potassium 3.3 mmol/L (3.5-5.1); Protein, Total 5.3 g/dL (6.0-8.3); Sodium 141 mmol/L (136-145)
[2020-05-28] MEDS: Insulin Regular 300 UNITS/3 ML VIAL SC PRN ×3 (05:06→23:08)
[2020-05-28] MEDS: Mometasone 200 MCG/Formoterol 5 MCG 120 PUFF INHALER INH SCH ×2 (07:22→19:03)
[2020-05-28] MEDS: cloNIDine 0.2 MG TAB PER TUBE SCH ×2 (08:17→20:11)
[2020-05-28] MEDS: methylPREDNISolone Sod Succ 40 MG VIAL IVP SCH ×2 (08:17→20:11)
[2020-05-28] MEDS: Amlodipine 10 MG TAB PER TUBE SCH (08:17)
[2020-05-28] MEDS: Pantoprazole 40 MG VIAL IVP SCH ×2 (08:17→20:11)
[2020-05-28] MEDS: Carvedilol 6.25 MG TAB PER TUBE SCH ×2 (08:17→20:10)
--- NOTE | 2020-05-28 09:27 | PRG ---
DATE OF SERVICE: 05/28/2020 SUBJECTIVE: A 70-year-old morbidly obese female, renal failure, multiorgan failure. OBJECTIVE: VITAL SIGNS: Temperature 98, blood pressure 136/80, respiratory rate 18, saturation 95% on CPAP. She is being dialyzed. CHEST: No wheezing, no crackles. CARDIAC: Normal S1. ABDOMEN: No masses. LABORATORY DATA: Creatinine 3.6, BUN 48. White count 9000, hemoglobin and hematocrit stable. ASSESSMENT: 1. Gastrointestinal bleed massive, improved. 2. Respiratory failure. 3. Hoskins positive pneumonia. PLAN: She is day #27 in the hospital. Pulmonary perera, she is slowly getting better. The question is whether we can extubate if she can protect her airways versus a trach and a PEG long-term placement. One-half hour of critical care time. Job ID: [id number]
[2020-05-28] MEDS ORDERED: Heparin 10,000 UNITS/ 10 ML VIAL ONE (09:32)
--- NOTE | 2020-05-28 09:44 | RAD ---
Chest one view HISTORY: Pneumonia. Follow-up. COMPARISON: 05/23/2020. FINDINGS: Cardiac silhouette is magnified and upper limits of normal in size. Pulmonary vasculature m ore engorged. Mediastinum is slightly shifted rightward with patient rotation. Lines and tubes unchanged in positio n. A thin metallic density, 2.1 cm length, projects over the stomach bubble and likely represents extrinsic artifact. Diffuse patchy groundglass parenchymal opacity throughout each lung has progressed slightly. No evidence of pneumothorax. IMPRESSION : Interval radiographic worsening of widespread groundglass infiltrate and pulmonary vascular congestio n.
[2020-05-28] MEDS: Insulin Glargine 5 UNITS in Pre-Filled Syringe SC SCH (09:46)
--- NOTE | 2020-05-28 11:24 | PDOC.HOSPP ---
- Subjective Encounter Date: 05/28/20 Encounter Time: 11:23 Subjective: Ms. Reed was seen today in follow-up of COVID pneumonia, and respiratory failure. She is intubated, she will grimace some when touched. She holds her eyes tightly closed, when you try to lift her eye lids. - Objective Vital Signs & Weight: Vital Signs (12 hours) Temp Pulse Resp BP 05/28/20 11:21 61 05/28/20 08:17 79 156/80 H 05/28/20 07:23 79 05/28/20 06:00 23 H 05/28/20 04:00 98.9 F 23 H 05/28/20 02:08 70 156/80 H 05/28/20 02:00 23 H 05/28/20 00:00 98.9 F 23 H Weight Admit Weight 186 lb 4.8 oz Weight 199 lb 4.766 oz Most Recent Monitor Data Heart Rate from ECG 78 NIBP 149/73 NIBP BP-Mean 98 Respiration from ECG 24 SpO2 97 I&O: 05/27/20 05/28/20 05/29/20 06:59 06:59 06:59 Intake Total 1704 1282 Output Total 0 Balance 1704 1282 Result Diagrams: 05/28/20 03:35 05/28/20 03:35 Additional Labs: Accuchecks 05/27/20 05/27/20 22:29 16:30 POC Glucose 181 H 152 H Hospitalist ROS - Medication Medications: Active Medications Generic Name Dose Route Start Last Admin Trade Name Freq PRN Reason Stop Dose Admin Acetaminophen 650 mg 05/25/20 18:57 05/27/20 14:32 Acetaminophen 650 Mg/20.3 Ml Udcup PER TUBE 650 mg Q4H PRN Administration Fever > 101 Albuterol Sulfate 2 puff 05/05/20 03:59 05/05/20 07:40 Albuterol 200 Puff (6.7gm Inhaler) INH 2 puff [id number] PRN Administration Wheezing Amlodipine Besylate 10 mg 05/15/20 09:00 05/28/20 08:17 Amlodipine 10 Mg Tab PER TUBE 10 mg DAILY ESTER Administration Carvedilol 6.25 mg 05/27/20 21:00 05/28/20 08:17 Carvedilol 6.25 Mg Tab PER TUBE 6.25 mg BID ESTER Administration Clonidine 0.2 mg 05/27/20 21:00 05/28/20 08:17 Clonidine 0.2 Mg Tab PER TUBE 0.2 mg BID ESTER Administration Insulin Glargine 5 units/ 0.05 mls @ 0 mls/hr 05/13/20 09:00 05/28/20 09:46 Miscellaneous Medication SC 0.05 mls QAM ESTER Administration Insulin Human Regular 0 units 05/13/20 09:28 05/28/20 05:06 Insulin Regular 300 Units/3 Ml Vial SC 4 unit .MODERATE SLIDING SC PRN Administration Moderate Correctional Scale Labetalol HCl 20 mg 05/12/20 05:37 05/25/20 23:16 Labetalol Hcl 100 Mg/20 Ml Vial SLOW IVP 20 mg Q4H PRN Administration SBP >170 Methylprednisolone Sodium Succinate 40 mg 05/23/20 21:00 05/28/20 08:17 Methylprednisolone Sod Succ 40 Mg Vial IVP 40 mg BID ESTER Administration Mometasone Furoate/Formoterol Fumar 2 puff 05/09/20 18:30 05/28/20 07:22 Mometasone 200 Mcg/Formoterol 5 Mcg 120 Puff Inhaler INH 2 puff BID-RT ESTER Administration Ondansetron HCl 4 mg 05/03/20 17:50 05/23/20 16:00 Ondansetron Pf 4 Mg/2 Ml Vial IVP 4 mg Q6H PRN Administration Nausea/Vomiting Pantoprazole Sodium 40 mg 05/24/20 21:00 05/28/20 08:17 Pantoprazole 40 Mg Vial IVP 40 mg Q12HR ESTER Administration Scopolamine 1.5 mg 05/22/20 15:15 05/25/20 15:14 Scopolamine 1.5 Mg/72 Hour Patch TOP 1.5 mg Q3D ESTER Administration Tramadol HCl 50 mg 05/26/20 21:00 05/27/20 20:43 Tramadol Hcl 50 Mg Tab PER TUBE 50 mg HS ESTER Administration - Exam Eye: anicteric sclera Heart: RRR, no murmur, no gallops, no rubs, normal peripheral pulses Respiratory: no wheezes, no ronchi, rales (at both bases) Gastrointestinal: soft, non-tender, non-distended, normal bowel sounds, no palpable masses, no hepatomegaly Extremities: no cyanosis (d.p. pulses are diminished. small callous on the right toe, otherwise no lesions), 2+ LE edema Hosp A/P (1) Pneumonia due to COVID-19 virus Code(s): U07.1 - COVID-19; J12.89 - OTHER VIRAL PNEUMONIA Status: Acute (2) Diabetes Code(s): E11.9 - TYPE 2 DIABETES MELLITUS WITHOUT COMPLICATIONS Status: Chronic Qualifiers: Diabetes mellitus type: type 2 Diabetes mellitus complication detail: with nephropathy 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 (3) Dyslipidemia Code(s): E78.5 - HYPERLIPIDEMIA, UNSPECIFIED Status: Chronic (4) HTN (hypertension) Code(s): I10 - ESSENTIAL (PRIMARY) HYPERTENSION Status: Chronic Qualifiers: Hypertension type: essential hypertension Qualified Code(s): I10 - Essential (primary) hypertension (5) Acute blood loss anemia Code(s): D62 - ACUTE POSTHEMORRHAGIC ANEMIA Status: Acute (6) DIC (disseminated intravascular coagulation) Code(s): D65 - DISSEMINATED INTRAVASCULAR COAGULATION Status: Acute (7) GI bleed Code(s): K92.2 - GASTROINTESTINAL HEMORRHAGE, UNSPECIFIED Status: Acute Qualifiers: GI bleed type/associated pathology: anorectal hemorrhage Qualified Code(s): K62.5 - Hemorrhage of anus and rectum (8) Hypokalemia Code(s): E87.6 - HYPOKALEMIA Status: Acute (9) Fever Code(s): R50.9 - FEVER, UNSPECIFIED Status: Acute - Plan * Acute respiratory failure with hypoxemia- due to COVID pneumonia- continue supportive care. She continues to require mechanical ventilation support * Continue Solumedrol IV * Possible extubation vs. Trach and PEG- recommendations as per PCCM * Fever- she had fever on 05/27, and 05/26. She has been re-cultured. Central line was removed, but she continues to have the same dialysis catheter. The tip from the central line is growing Pseudomonas. Will add Zosyn-pending sensitivities, and consult surgery to replace the dialysis catheter * HTN- blood pressure is a bit better * DM- blood glucose is stable- continue low dose Lantus, and SSI * Acute on chronic kidney injury- stable- dialysis as per Nephrology * Anemia- continue to monitor H&H and transfuse as needed * Hypokalemia- Continue to replace Potassium * DIC- due to COVID
[2020-05-28] MEDS ORDERED: Potassium Bicarbonate/Cit Ac 20 MEQ TAB PER TUBE SCH (11:45)
[2020-05-28] MEDS: Piperacillin/Tazobactam 2.25 GM in Sodium Chloride 0.9% 100 ML IVPB SCH ×2 (13:25→21:34)
[2020-05-28] MEDS: Scopolamine 1.5 mg/72 hour Patch TOP SCH (16:28)
--- NOTE | 2020-05-28 16:51 | PRG ---
DATE OF SERVICE: 05/28/2020 SUBJECTIVE: Ms. Reed has had no further bleeding from her GI tract. She is tolerating tube feeds. OBJECTIVE: VITAL SIGNS: Temperature is 98.5, T-max 99, pulse 68, and blood pressure 146/69. ABDOMEN: Soft, nontender. LABORATORY DATA: White count 9.6, hemoglobin 7.8, and platelet count 171. Sodium 141, potassium 3.3, BUN and creatinine 48 and 3.66. ASSESSMENT: 1. Gastrointestinal hemorrhage, resolved. 2. Gastric ulcers, related to stress ulceration from pneumonia, ICU status. Now, she is on Protonix 40 IV b.i.d., and she had cautery of one of the ulcers. There is no further bleeding. RECOMMENDATIONS: 1. We would continue ulcer treatment with Protonix 40 mg b.i.d. for a couple more days and then go to once per day. 2. We will sign off at this point in time. If GI can be of any further assistance in her care, please do not hesitate to re-consult. Job ID: [id number]
--- NOTE | 2020-05-28 17:55 | PRG ---
DATE OF SERVICE: 05/28/2020 SUBJECTIVE: Patient is seen and examined in the ICU, remains intubated. Nonverbal and noncommunicative. Patient was on dialysis. OBJECTIVE: GENERAL: This is an elderly female, intubated. VITAL SIGNS: Temperature 98.5, pulse 68, respiratory rate 23, blood pressure 146/69. HEENT: Intubated. CV: S1 and S2 heard. RESPIRATORY: Coarse breath sounds. NEUROLOGIC: Intubated. LABORATORY DATA: BUN 48, creatinine is 3.6, potassium 3.3. ASSESSMENT AND PLAN: 1. End-stage renal disease, currently on dialysis. The patient is seen during dialysis, tolerating well. 2. Mild hypokalemia. We will use 4K bath. 3. Anemia of chronic disease. 4. Sepsis. 5. Acute hypoxic respiratory failure. 6. History of coronavirus disease 2019 infection. 7. Altered mentation. Overall prognosis is very poor. We will continue dialysis as tolerated. We will follow the case along with other specialists and primary team. Job ID: [id number]
[2020-05-28] MEDS: EPOETIN ALFA-EPBX (ESRD) 10,000 UNIT/ML VIAL IVP SCH (18:49)
[2020-05-28] MEDS: traMADol HCl 50 MG TAB PER TUBE SCH (20:09)
--- NOTE | 2020-05-28 20:16 | CON ---
DATE OF CONSULTATION: Genia Reed is a 70-year-old female whom I placed a femoral Trialysis catheter to initiate dialysis on 05/16/2020. The patient was admitted to the hospital COVID positive on 05/01/2020, admitted by the hospitalist seen by Critical Care and Dr. Samuels. I have been asked to see her regarding placement of tracheostomy, PEG tube, and she will need a cuffed tunneled dialysis catheter and possible central line. The patient's requested to talk to me about the hemodialysis catheter and PEG tube and I did talk to him on the phone explaining these procedures, risks, and benefits. He will take time to think about this. We will plan this tomorrow if he consents. Questions have been answered. ALLERGIES: CLINDAMYCIN, HYDROCODONE, HYDROXYZINE. SOCIAL HISTORY: Tobacco, none; alcohol, none. PAST MEDICAL HISTORY: Type 2 diabetes mellitus, hyperlipidemia, hypercholesterolemia, hypertension, respiratory failure, COVID pneumonia, COVID, sepsis illness. PAST SURGICAL HISTORY: Cataract surgery, tubal ligation. PHYSICAL EXAMINATION: GENERAL: The patient is sedated on the ventilator. VITAL SIGNS: 5 feet 7 inches, 199 pounds, 31 BMI. 98.5 degrees. HEAD, EARS, EYES, NOSE, THROAT: Unremarkable. LUNGS: Clear to auscultation. CARDIAC: Regular rate and rhythm. ABDOMEN: Soft. Positive bowel sounds. EXTREMITIES: Palpable radial pulses. Central line is in place. Extremities unremarkable. LABORATORY DATA: White count 9, hemoglobin 7.8. Basic metabolic profile normal, consistent with renal failure. BUN 48, creatinine 3.66, GFR 15. Accu-Chek 255. ASSESSMENT AND PLAN: 1. COVID pneumonia with multiple organ failure. Plan for placement of hemodialysis catheter, cuffed tunneled, if the agrees. 2. Respiratory failure, tracheostomy. 3. Malnutrition, dysphagia, PEG tube. 4. Poor IV access. May need a central line. Job ID: [id number]
[2020-05-29 04:43] LABS: #Lymphocytes 0.7 thou/uL (1.20-3.40); #Monocytes 0.6 thou/uL (0.11-0.59); #Neutrophils 10.2 thou/uL (1.40-6.50); %Basophils 0.2 % (0.0-1.0); %Eosinophils 0.1 % (0.0-10.0); %Lymphocytes 5.7 % (21.0-51.0); %Monocytes 4.8 % (0.0-10.0); %Neutrophils 89.2 % (42.0-75.0); Hemoglobin 8.5 g/dL (12.0-16.0); Mean Corpuscular HGB CONC 33.7 g/dL (32.0-36.0); Mean Platelet Volume 8.5 fL (7.4-10.4); Platelet Count 213 thou/uL (130-400); Red Blood Cell (RBC) Count 2.82 mill/uL (4.20-5.40); White Blood Cell (WBC) Count 11.4 thou/uL (4.8-10.8)
[2020-05-29 04:48] LABS: INR-International Normal Ratio 1.1; Prothrombin Time 14.2 sec (12.0-14.7)
[2020-05-29 04:49] LABS: PTT 38.7 sec (22.9-36.1)
[2020-05-29 05:08] LABS: ALT (SGPT) 22 U/L (8-55); AST (SGOT) 22 U/L (5-34); Albumin 2.6 g/dL (3.4-4.8); Alkaline Phosphatase 115 U/L (40-110); Anion Gap 17 mmol/L (10-20); BUN (Urea Nitrogen) 40 mg/dL (9.8-20.1); Bilirubin, Total 0.7 mg/dL (0.2-1.2); Calc. Creatinine Clearance 27 mL/min (70-130); Calcium 8.1 mg/dL (7.8-10.44); Carbon Dioxide 29 mmol/L (23-31); Chloride 97 mmol/L (98-107); Globulin 3.1 g/dL (2.4-3.5); Glucose 173 mg/dL (80-115); Potassium 3.9 mmol/L (3.5-5.1); Protein, Total 5.7 g/dL (6.0-8.3); Sodium 139 mmol/L (136-145)
[2020-05-29] MEDS: Piperacillin/Tazobactam 2.25 GM in Sodium Chloride 0.9% 100 ML IVPB SCH ×3 (05:13→21:07)
[2020-05-29] MEDS: Insulin Regular 300 UNITS/3 ML VIAL SC PRN ×3 (05:14→21:18)
[2020-05-29] MEDS: Mometasone 200 MCG/Formoterol 5 MCG 120 PUFF INHALER INH SCH ×2 (06:35→19:03)
[2020-05-29] MEDS ORDERED: Dexamethasone 20 MG/5 ML VIAL ONE (09:13)
[2020-05-29] MEDS ORDERED: Ondansetron PF 4 MG/2 ML Vial ONE (09:13)
[2020-05-29] MEDS ORDERED: Rocuronium Bromide 10 MG/ML (10ML VIAL) ONE (09:13)
[2020-05-29] MEDS ORDERED: PROPOFOL 200 MG/20 ML VIAL ONE (09:13)
[2020-05-29] MEDS: Acetaminophen 650 MG/20.3 ML UDCUP PER TUBE PRN (10:03)
[2020-05-29] MEDS: Carvedilol 6.25 MG TAB PER TUBE SCH ×2 (10:04→20:59)
[2020-05-29] MEDS: cloNIDine 0.2 MG TAB PER TUBE SCH ×2 (10:04→20:59)
[2020-05-29] MEDS: Amlodipine 10 MG TAB PER TUBE SCH (10:05)
[2020-05-29] MEDS: methylPREDNISolone Sod Succ 40 MG VIAL IVP SCH ×2 (10:05→20:59)
[2020-05-29] MEDS: Insulin Glargine 5 UNITS in Pre-Filled Syringe SC SCH (10:05)
[2020-05-29] MEDS: Pantoprazole 40 MG VIAL IVP SCH ×2 (10:05→21:43)
--- NOTE | 2020-05-29 10:37 | PRG ---
DATE OF SERVICE: 05/29/2020 SUBJECTIVE: Genia Reed is a 70-year-old morbidly obese female with renal failure, breathing on a CPAP without any distress. OBJECTIVE: VITAL SIGNS: Sats are 100% on PEEP of 5 and 45%, temperature 98, pulse 65, respirations 24, blood pressure 174/84. CHEST: No wheezing, no crackles. CARDIAC: Normal S1 and S2. No gallops. ABDOMEN: No masses. LABORATORY DATA: White count 11,000, hemoglobin and hematocrit 8 and 25. Electrolytes are normal. Creatinine 2.4. ASSESSMENT: Catheter-tip is growing Pseudomonas. She was switched over to Zosyn, which is sensitive to renal failure; severe deconditioning; encephalopathy; lim positive pneumonia; prolonged respiration . PLAN: Trach and PEG today. We will probably eventually need placement for her. One-half hour of critical time. Job ID: [id number]
[2020-05-29] MEDS: Labetalol HCl 100 MG/20 ML VIAL SLOW IVP PRN (11:27)
[2020-05-29] MEDS ORDERED: Bupivacaine PF 0.5% 30 ML VIAL ONE (12:28)
[2020-05-29] MEDS ORDERED: Lidocaine 2% w/Epinephrine 1:200K 20 ML VIAL ONE (12:28)
[2020-05-29] MEDS ORDERED: Heparin 10,000 UNITS/ 10 ML VIAL ONE (12:28)
[2020-05-29] MEDS ORDERED: Sodium Chloride 0.9% 20 ML ONE (12:28)
[2020-05-29] MEDS ORDERED: Fentanyl 100 MCG/2 ML VIAL ONE (12:43)
[2020-05-29] MEDS ORDERED: Midazolam HCl 2 mg/2 ml Vial ONE (12:43)
--- NOTE | 2020-05-29 12:48 | PDOC.PALPN ---
Palliative Progress Note - Subjective Off Isolation from Covid Pneumonia with subsequent respiratory failure. Intubated, abx and steroids. - Objective Vital Signs: Vital Signs - Most Recent Temp Pulse Resp BP Pulse Ox 98.7 F 62 20 174/84 H 100 05/29/20 04:00 05/29/20 11:27 05/29/20 10:00 05/29/20 11:27 05/29/20 08:00 - Physical Exam Constitutional: ill appearing HEENT: moist MMs, sclera anicteric Respiratory: no wheezing Deviation from normal: bilaterally adventicous lower lobes Cardiovascular: no significant murmur, RRR, diminished peripheral pulses Gastrointestinal: soft, non-tender, incontinent Deviation from normal: obese Genitourinary: soriano catheter Musculoskeletal: no clubbing, edema present Deviation from normal: encephalopathic - Assessment (1) Palliative care encounter Code(s): Z51.5 - ENCOUNTER FOR PALLIATIVE CARE Current Visit: Yes Status: Acute (2) Acute kidney injury superimposed on CKD Code(s): N17.9 - ACUTE KIDNEY FAILURE, UNSPECIFIED; N18.9 - CHRONIC KIDNEY DISEASE, UNSPECIFIED Current Visit: Yes Status: Acute (3) Physical deconditioning Code(s): R53.81 - OTHER MALAISE Current Visit: Yes Status: Acute (4) Pneumonia due to COVID-19 virus Code(s): U07.1 - COVID-19; J12.89 - OTHER VIRAL PNEUMONIA Current Visit: Yes Status: Acute (5) Acute and chronic respiratory failure with hypoxia Code(s): J96.21 - ACUTE AND CHRONIC RESPIRATORY FAILURE WITH HYPOXIA Current Visit: No Status: Acute (6) Acute renal failure superimposed on stage 4 chronic kidney disease Code(s): N17.9 - ACUTE KIDNEY FAILURE, UNSPECIFIED; N18.4 - CHRONIC KIDNEY DISEASE, STAGE 4 (SEVERE) Current Visit: No Status: Acute (7) Obesity (BMI 30.0-34.9) Code(s): E66.9 - OBESITY, UNSPECIFIED Current Visit: No Status: Chronic - Plan Plan: Teaching in relation to disease processes, complications and long recovery. Goals: Trach/Peg Patient son and daughter seeking aggressive measures Hopeful for recovery and eventual return to baseline. LTAC for continued recovery. Palliative care will sign off as Goals addressed, family supported. If we can further assist in revisiting goal of care, complex decision making or prognosis disease assist please reconsult our team. Thank you for this very appropriate consult. [30] minutes spent on this encounter with >50% of the time in counseling and coordination of care. - ROS Non Response: due to endotracheal tube, due to mental status
[2020-05-29] MEDS ORDERED: Piperacillin/Tazobactam 3.375 GM VIAL ONE (13:32)
--- NOTE | 2020-05-29 14:45 | RAD ---
Chest AP view INDICATION: History of central line placement COMPARISON: May 28, 2020 FINDINGS: Lungs: Bilateral airspace disease is stable Cardiac silhouette: Cardiomegaly is stable Pulmonary vasculature: Normal Pleural spaces: Small bilateral pleural effusions persist Upper abdomen: No abnormality seen. Osseous structures: No acute osseous abnormality. Additional findings: An interval tracheostomy tube is in place. There is a new left IJ central venou s catheter tip projecting to the region of the right atrium. There is a new right IJ dialysis catheter that is projecting into the region of the right IJ. No pneumothorax is evident. IMPRESSION: 1. Stable bilateral pneumonia. 2. Interval placement of tracheostomy tube. 3. Interval placement of a left IJ central venous catheter and a right IJ dialysis catheter as above 4. Stable cardiomegaly and bilateral pleural effusions. 5. No pneumothorax
--- NOTE | 2020-05-29 15:30 | OP ---
DATE OF PROCEDURE: 05/29/2020 PREOPERATIVE DIAGNOSES: 1. Respiratory failure. 2. COVID pneumonia. 3. Chronic kidney disease with acute renal failure, on hemodialysis. 4. Malnutrition. 5. Dysphagia. 6. Encephalopathy. POSTOPERATIVE DIAGNOSES: 1. Respiratory failure. 2. COVID pneumonia. 3. Chronic kidney disease with acute renal failure, on hemodialysis. 4. Malnutrition. 5. Dysphagia. 6. Encephalopathy. PROCEDURES PERFORMED: 1. Right internal jugular cuffed tunneled hemodialysis catheter. 2. Left internal jugular central line. 3. A #8 Shiley tracheostomy tube. 4. Percutaneous endoscopic gastrostomy tube. ANESTHESIA: General, local with 0.5% Marcaine 30 mL, mixed with 1% Xylocaine with epinephrine 20 mL. DESCRIPTION OF PROCEDURE: The patient was taken to the operating room where in supine position, neck, chest, and abdomen were prepared with ChloraPrep and draped in routine fashion. Local anesthetic was infiltrated in the skin and subcutaneous tissue about the operative site. Ultrasound guidance was used to cannulate both the right and left internal jugular veins, placing the J-wires, removing the trocar needles, enlarging the skin site sharply on both sides, a stab incision of the right chest. Using Seldinger technique, a triple-lumen catheter placed in the left IJ, secured with interrupted 3-0 nylon suture. Each port aspirated blood, flushed with saline solution. Through the stab incision in right chest, a tunneling device was inserted, tunneling the pre-curved [employer] cuffed tunneled hemodialysis catheter, placing the fabric cuff beneath the skin exit site, securing with interrupted 3-0 nylon suture, and sterile dressing applied. Small and medium-sized dilators were placed over the J-wire into the internal jugular vein, removing the dilator and Peel-Away sheath, placing over the J-wire into the superior vena cava, dilator and J-wire were removed, catheter placed with Peel-Away sheath. Peel-Away sheath removed. Platysma was approximated with 4-0 Monocryl, skin with subdermal Monocryl, and [place] glue applied. Each port aspirated blood, flushed with saline solution and heparinized saline solution with 1000 units of heparin per mL, indicating volume of the port. Final fluoroscopic images revealed good line placement. An incision was made in the anterior neck over the manubrium and carried down to skin, subcutaneous tissue, and platysma, dividing anterior jugular veins with 3-0 silk ties and isthmus of the thyroid divided with cautery, noted good hemostasis and stay sutures of 3-0 Prolene placed on either side of anterior lateral trachea below the cricoid. Anterior tracheal rings incised over 2 rings to create an anterior window, excising the trachea, visualizing the endotracheal tube, withdrawn above and #8 Shiley low-pressure cuffed tracheostomy tube inserted, balloon inflated, connected to the ventilator. Skin incisions were closed with 3-0 Prolene. Tracheostomy appliance secured with 3-0 Prolene. Kerwin placed around the tracheostomy site. Good hemostasis noted. Tracheostomy strap secured. Endoscope was placed per os under direct visualization. Using air insufflation, passed throughout the esophagus and the stomach, insufflating, noted good indentation in the left side of xiphoid and stab incision made and trocar catheter induced into the stomach, visualized endoscopically, grasping the wire with the snare and bringing it back out the mouth, noting normal stomach and esophagus visualized. Feeding tube lubricated, connected to the wire, pulled back down the mouth and esophagus, secured to the gastric mucosa with a fixation device to the anterior abdominal wall and tube tailored to length and the feeding device secured. Sterile dressing applied. The patient tolerated the procedure well. Job ID: [id number]
--- NOTE | 2020-05-29 17:56 | PRG ---
DATE OF SERVICE: 05/29/2020 SUBJECTIVE: The patient is seen and examined in ICU, remains intubated. OBJECTIVE: GENERAL: Elderly female, intubated. VITAL SIGNS: Temperature 97.7, pulse 61, respiratory rate 18, blood pressure 142/77. HEENT: Intubated. CV: S1 and S2. RESPIRATORY: Coarse breath sounds. NEUROLOGIC: Intubated. LABORATORY DATA: BUN is 40, creatinine is 2.78. ASSESSMENT AND PLAN: 1. End-stage renal disease, on hemodialysis. Continue on dialysis. 2. Edema, controlled. 3. History of hypertension. 4. Mild hypokalemia. 5. Sepsis. 6. History of COVID-19 infection. 7. Altered mentation. 8. Continue dialysis as tolerated Thursday, Thursday and Thursday. Job ID: [id number] [facility]
--- NOTE | 2020-05-29 18:10 | PDOC.BPN ---
- Brief Progress Note Encounter Date: 05/29/20 Encounter Time: 18:08 Came to see patient around 4:30pm and she was in surgery. No new complaints. Patient will have PEG tube, Trach, and Dialysis catheter placed. Culture results noted. Pseudomonas was susceptible to Zosyn.
[2020-05-29] MEDS: traMADol HCl 50 MG TAB PER TUBE SCH (21:01)
[2020-05-30 05:02] LABS: PTT 32.7 sec (22.9-36.1); Prothrombin Time 13.7 sec (12.0-14.7)
[2020-05-30 05:52] LABS: Hemoglobin 8.8 g/dL (12.0-16.0); Mean Corpuscular HGB CONC 32.8 g/dL (32.0-36.0); Mean Corpuscular Hemoglobin 29.4 pg (27.0-31.0); Mean Corpuscular Volume 89.5 fL (78.0-98.0); Mean Platelet Volume 8.3 fL (7.4-10.4); Platelet Count 252 thou/uL (130-400); RBC Distribution Width 14.1 % (11.5-14.5); Red Blood Cell (RBC) Count 3.01 mill/uL (4.20-5.40); White Blood Cell (WBC) Count 13.1 thou/uL (4.8-10.8)
[2020-05-30 06:06] LABS: Eosinophils 1 % (0-10); Lymphocytes 5 % (21-51); MDiff Complete? YES; Monocytes 6 % (0-10); Neutrophil 88 % (42-75); Schistocytes SLIGHT = 2-5 cells (100X) (0-1/hpf); Toxic Granulation SLIGHT
[2020-05-30] MEDS: Piperacillin/Tazobactam 2.25 GM in Sodium Chloride 0.9% 100 ML IVPB SCH ×3 (06:07→22:12)
[2020-05-30] MEDS: Insulin Regular 300 UNITS/3 ML VIAL SC PRN ×2 (06:35→20:52)
[2020-05-30] MEDS: Mometasone 200 MCG/Formoterol 5 MCG 120 PUFF INHALER INH SCH ×2 (07:43→18:30)
[2020-05-30] MEDS ORDERED: predniSONE 20 MG TAB PO SCH (09:00)
[2020-05-30] MEDS: Pantoprazole 40 MG VIAL IVP SCH ×2 (09:00→20:39)
--- NOTE | 2020-05-30 09:04 | PRG ---
DATE OF SERVICE: SUBJECTIVE: A 70-year-old female status post trach and PEG, chronic renal failure. She is breathing spontaneously on CPAP, still encephalopathic, though she opens her eyes. OBJECTIVE: VITAL SIGNS: Pulse 61, blood pressure 140/70, respiratory rate 18. CHEST: No wheezing, no crackles. CARDIAC: Normal S1. ABDOMEN: No masses. LABORATORY DATA: White count 13,000. X-ray shows a right-sided infiltrate. ASSESSMENT: Respiratory failure, Hoskins positive pneumonia, severe deconditioning, chronic renal failure, encephalopathy. PLAN: Trach collar today. We will probably try and get her to an LTAC as soon as she is stabilized. Switch her over to oral prednisone. She is on Zosyn for presumed infection of catheter tip. Pulmonary is going to follow. One-half hour of critical care time. Job ID: [id number]
--- NOTE | 2020-05-30 09:39 | PDOC.HOSPP ---
- Subjective Encounter Date: 05/30/20 Encounter Time: 09:37 Subjective: Ms. Reed was seen today in follow-up of CPVOD pneumonia, and respiratory failure. She was noted to have some twitching in her face. She seems to be slightly more alert, but keeps her eyes closed. - Objective Vital Signs & Weight: Vital Signs (12 hours) Temp Pulse Resp BP Pulse Ox 05/30/20 08:51 96 05/30/20 07:38 61 140/70 05/30/20 06:00 18 05/30/20 04:00 98.1 F 18 05/30/20 02:34 51 L 05/30/20 02:00 20 05/30/20 00:00 97.9 F 05/29/20 22:15 57 L 05/29/20 22:00 21 H Weight Admit Weight 186 lb 4.8 oz Weight 200 lb 2.876 oz Most Recent Monitor Data Heart Rate from ECG 62 NIBP 140/72 NIBP BP-Mean 94 Respiration from ECG 21 SpO2 100 I&O: 05/29/20 05/30/20 05/31/20 06:59 06:59 06:59 Intake Total 785 770 Output Total 0 Balance 785 770 Result Diagrams: 05/30/20 04:37 05/29/20 03:45 Additional Labs: Accuchecks 05/30/20 05/29/20 05/29/20 06:33 20:06 17:33 POC Glucose 203 H 192 H 232 H 05/29/20 05/29/20 12:36 09:54 POC Glucose 180 H 160 H Hospitalist ROS - Medication Medications: Active Medications Generic Name Dose Route Start Last Admin Trade Name Freq PRN Reason Stop Dose Admin Acetaminophen 650 mg 05/25/20 18:57 05/29/20 10:03 Acetaminophen 650 Mg/20.3 Ml Udcup PER TUBE 650 mg Q4H PRN Administration Fever > 101 Albuterol Sulfate 2 puff 05/05/20 03:59 05/05/20 07:40 Albuterol 200 Puff (6.7gm Inhaler) INH 2 puff [id number] PRN Administration Wheezing Amlodipine Besylate 10 mg 05/15/20 09:00 05/29/20 10:05 Amlodipine 10 Mg Tab PER TUBE 10 mg DAILY ESTER Administration Carvedilol 6.25 mg 05/27/20 21:00 05/29/20 20:59 Carvedilol 6.25 Mg Tab PER TUBE 6.25 mg BID ESTER Administration Clonidine 0.2 mg 05/27/20 21:00 05/29/20 20:59 Clonidine 0.2 Mg Tab PER TUBE 0.2 mg BID ESTER Administration Epoetin Selwyn-epbx 10,000 unit 05/28/20 18:00 05/28/20 18:49 Epoetin Selwyn-Epbx (Esrd) 10,000 Unit/Ml Vial IVP 10,000 unit MoWeFr ESTER Administration Insulin Glargine 5 units/ 0.05 mls @ 0 mls/hr 05/13/20 09:00 05/29/20 10:05 Miscellaneous Medication SC Not Given QAM ESTER Piperacillin Sod/Tazobactam 100 mls @ 200 mls/hr 05/28/20 14:00 05/30/20 06:07 Sod 2.25 gm/ Sodium Chloride IVPB 100 mls Q8HR ESTER Administration Insulin Human Regular 0 units 05/13/20 09:28 05/30/20 06:35 Insulin Regular 300 Units/3 Ml Vial SC 4 unit .MODERATE SLIDING SC PRN Administration Moderate Correctional Scale Labetalol HCl 20 mg 05/12/20 05:37 05/29/20 11:27 Labetalol Hcl 100 Mg/20 Ml Vial SLOW IVP 20 mg Q4H PRN Administration SBP >170 Mometasone Furoate/Formoterol Fumar 2 puff 05/09/20 18:30 05/30/20 07:43 Mometasone 200 Mcg/Formoterol 5 Mcg 120 Puff Inhaler INH 2 puff BID-RT ESTER Administration Ondansetron HCl 4 mg 05/03/20 17:50 05/23/20 16:00 Ondansetron Pf 4 Mg/2 Ml Vial IVP 4 mg Q6H PRN Administration Nausea/Vomiting Pantoprazole Sodium 40 mg 05/24/20 21:00 05/29/20 21:43 Pantoprazole 40 Mg Vial IVP 40 mg Q12HR ESTER Administration Scopolamine 1.5 mg 05/22/20 15:15 05/28/20 16:28 Scopolamine 1.5 Mg/72 Hour Patch TOP 1.5 mg Q3D ESTER Administration Tramadol HCl 50 mg 05/26/20 21:00 05/29/20 21:01 Tramadol Hcl 50 Mg Tab PER TUBE 50 mg HS ESTER Administration - Exam General Appearance: NAD Heart: RRR, no murmur, no gallops, no rubs, normal peripheral pulses Respiratory: no rales Gastrointestinal: soft, non-tender, non-distended, normal bowel sounds, no palpable masses, no bruit, no guarding Extremities: no cyanosis Hosp A/P (1) Pneumonia due to COVID-19 virus Code(s): U07.1 - COVID-19; J12.89 - OTHER VIRAL PNEUMONIA Status: Acute (2) Diabetes Code(s): E11.9 - TYPE 2 DIABETES MELLITUS WITHOUT COMPLICATIONS Status: Chronic Qualifiers: Diabetes mellitus type: type 2 Diabetes mellitus complication detail: with nephropathy 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 (3) Dyslipidemia Code(s): E78.5 - HYPERLIPIDEMIA, UNSPECIFIED Status: Chronic (4) HTN (hypertension) Code(s): I10 - ESSENTIAL (PRIMARY) HYPERTENSION Status: Chronic Qualifiers: Hypertension type: essential hypertension Qualified Code(s): I10 - Essential (primary) hypertension (5) Acute blood loss anemia Code(s): D62 - ACUTE POSTHEMORRHAGIC ANEMIA Status: Acute (6) DIC (disseminated intravascular coagulation) Code(s): D65 - DISSEMINATED INTRAVASCULAR COAGULATION Status: Acute (7) GI bleed Code(s): K92.2 - GASTROINTESTINAL HEMORRHAGE, UNSPECIFIED Status: Acute Qualifiers: GI bleed type/associated pathology: anorectal hemorrhage Qualified Code(s): K62.5 - Hemorrhage of anus and rectum (8) Hypokalemia Code(s): E87.6 - HYPOKALEMIA Status: Acute (9) Fever Code(s): R50.9 - FEVER, UNSPECIFIED Status: Acute - Plan * Acute respiratory failure with hypoxemia- due to COVID pneumonia- She now has a trach and PEG, and is off ventilator support with a trach collar * Fever- Continue Zosyn for Pseudomonas * Facial twitching- ? etiology- this may be a parial seizure- will give a trial of ativan IV and observe * HTN- blood pressure is a bit better * DM- blood glucose is stable- continue low dose Lantus, and SSI * Acute on chronic kidney injury- stable- dialysis as per Nephrology * Anemia- H&H has been stable * Metabolic encephalopathy- not much improvment * Hypokalemia- Continue to replace Potassium * DIC- due to COVID
[2020-05-30] MEDS ORDERED: Lorazepam 2 MG/ML VIAL SLOW IVP SCH (09:45)
--- NOTE | 2020-05-30 09:49 | PRG ---
DATE OF SERVICE: 05/30/2020 Ms. Reed underwent hemodialysis catheter central line, tracheostomy, PEG tube placement yesterday. Tracheostomy site is clean and dry. Abdomen soft and nontender. Hemodialysis catheter seemed to be functioning well. Groin catheter removed. Abdomen is soft, nontender. Good bowel sounds. Tolerating tube feedings. ASSESSMENT AND PLAN: Doing well after surgical procedure above. I will see as needed. Please call if necessary. Job ID: [id number]
[2020-05-30] MEDS: Carvedilol 6.25 MG TAB PER TUBE SCH ×2 (10:29→20:40)
[2020-05-30] MEDS: cloNIDine 0.2 MG TAB PER TUBE SCH ×2 (10:29→20:40)
[2020-05-30] MEDS: Insulin Glargine 5 UNITS in Pre-Filled Syringe SC SCH (10:31)
[2020-05-30] MEDS: Amlodipine 10 MG TAB PER TUBE SCH (10:31)
--- NOTE | 2020-05-30 11:37 | PRG ---
DATE OF SERVICE: 05/30/2020 SUBJECTIVE: The patient is seen and examined in ICU. Remains on trach collar. OBJECTIVE: GENERAL: Elderly female, seen in ICU. VITAL SIGNS: Temperature 98.0, pulse 67, respiratory rate 18, and blood pressure 159/79. HEENT: Atraumatic, normocephalic. NECK: Trach collar present. CV: S1 and S2 heard. RESPIRATORY: Coarse breath sounds. NEUROLOGICAL: Not responding. MUSCULOSKELETAL: 1+ edema. LABORATORY DATA: No labs done today. ASSESSMENT AND PLAN: 1. End-stage renal disease. Continue on hemodialysis. 2. Edema. 3. History of hypertension. 4. Acute hypoxic respiratoy failure 5. COVID-19 infection. 6. Altered mentation. We will continue on dialysis. We will follow. Job ID: [id number] [facility]
[2020-05-30] MEDS ORDERED: Heparin 10,000 UNITS/ 10 ML VIAL ONE (12:17)
[2020-05-30] MEDS: traMADol HCl 50 MG TAB PER TUBE SCH (20:40)
[2020-05-31] MEDS: Acetaminophen 650 MG/20.3 ML UDCUP PER TUBE PRN ×2 (00:39→09:20)
[2020-05-31 05:27] LABS: Anion Gap 16 mmol/L (10-20); BUN (Urea Nitrogen) 37 mg/dL (9.8-20.1); Calc. Creatinine Clearance 27 mL/min (70-130); Calcium 7.4 mg/dL (7.8-10.44); Carbon Dioxide 28 mmol/L (23-31); Chloride 96 mmol/L (98-107); Glucose 323 mg/dL (80-115); Potassium 4.1 mmol/L (3.5-5.1); Sodium 136 mmol/L (136-145)
[2020-05-31 05:36] LABS: INR-International Normal Ratio 1.1; PTT 35.7 sec (22.9-36.1); Prothrombin Time 14.7 sec (12.0-14.7)
[2020-05-31] MEDS: Piperacillin/Tazobactam 2.25 GM in Sodium Chloride 0.9% 100 ML IVPB SCH ×3 (06:06→21:13)
[2020-05-31] MEDS: Insulin Regular 300 UNITS/3 ML VIAL SC PRN ×4 (06:30→20:48)
[2020-05-31] MEDS: Mometasone 200 MCG/Formoterol 5 MCG 120 PUFF INHALER INH SCH ×2 (06:42→22:45)
[2020-05-31 06:58] LABS: #Eosinphils 0.1 thou/uL (0.0-0.7); #Lymphocytes 1.1 thou/uL (1.20-3.40); #Monocytes 0.7 thou/uL (0.11-0.59); #Neutrophils 9.6 thou/uL (1.40-6.50); %Basophils 0.2 % (0.0-1.0); %Eosinophils 0.5 % (0.0-10.0); %Lymphocytes 9.6 % (21.0-51.0); %Monocytes 6.4 % (0.0-10.0); %Neutrophils 83.4 % (42.0-75.0); Anisocytosis SLIGHT = 6-15 cells (100X) (0-5/hpf); Hemoglobin 8.5 g/dL (12.0-16.0); MDiff Complete? YES; Mean Corpuscular HGB CONC 32.8 g/dL (32.0-36.0); Mean Corpuscular Hemoglobin 29.7 pg (27.0-31.0); Mean Corpuscular Volume 90.5 fL (78.0-98.0); Mean Platelet Volume 8.4 fL (7.4-10.4); Platelet Count 253 thou/uL (130-400); RBC Distribution Width 14.6 % (11.5-14.5); Red Blood Cell (RBC) Count 2.85 mill/uL (4.20-5.40); White Blood Cell (WBC) Count 11.6 thou/uL (4.8-10.8)
[2020-05-31] MEDS: Insulin Glargine 5 UNITS in Pre-Filled Syringe SC SCH (09:20)
[2020-05-31] MEDS: Amlodipine 10 MG TAB PER TUBE SCH (09:21)
[2020-05-31] MEDS: cloNIDine 0.2 MG TAB PER TUBE SCH ×2 (09:21→20:44)
[2020-05-31] MEDS: predniSONE 20 MG TAB PO SCH (09:21)
[2020-05-31] MEDS: Carvedilol 6.25 MG TAB PER TUBE SCH ×2 (09:21→20:44)
[2020-05-31] MEDS: Pantoprazole 40 MG VIAL IVP SCH ×2 (09:22→20:44)
[2020-05-31] MEDS: EPOETIN ALFA-EPBX (ESRD) 10,000 UNIT/ML VIAL IVP SCH (09:43)
--- NOTE | 2020-05-31 09:45 | PRG ---
DATE OF SERVICE: 05/31/2020 SUBJECTIVE: Genia Reed is a 70-year-old female on trach collar. No respiratory distress, but remains encephalopathic. OBJECTIVE: VITAL SIGNS: Temperature 97, sats 96%, 40%, and blood pressure 128/63. CHEST: No wheezing. No crackles. CARDIAC: Normal S1 and S2. No gallops. ABDOMEN: No masses. LABORATORY DATA: Creatinine 2.7. White count 11, H and H of 8 and 25. ASSESSMENT: Respiratory failure, massive gastrointestinal bleed, lim positive pneumonia, encephalopathy. PLAN: At this stage, not much to add. Continue PT, supportive care, eventually placement. One-half hour of critical care time. Job ID: [id number]
--- NOTE | 2020-05-31 10:38 | PDOC.HOSPP ---
- Subjective Encounter Date: 05/31/20 Encounter Time: 10:36 Subjective: Ms. Reed was seen today in follow-up of COVID pneumonia and metabolic encephalopathy. She seems to be a bit more alert. She was able to slightly put pressure on my hand when asked to squeeze. The nurse has noted some facila twitching off and on, but it is very brief, and usually when she is manipulated physically. - Objective Vital Signs & Weight: Vital Signs (12 hours) Temp BP Pulse Ox 05/31/20 09:21 140/70 05/31/20 08:00 97.5 F L 96 05/31/20 06:47 94 L 05/31/20 04:00 98.7 F 05/31/20 02:18 94 L 05/31/20 00:00 98.1 F Weight Admit Weight 186 lb 4.8 oz Weight 195 lb 15.855 oz Most Recent Monitor Data Heart Rate from ECG 73 NIBP 128/63 NIBP BP-Mean 84 Respiration from ECG 36 SpO2 94 I&O: 05/30/20 05/31/20 06/01/20 06:59 06:59 06:59 Intake Total 770 1410 60 Output Total 0 0 Balance 770 1410 60 Result Diagrams: 05/31/20 04:52 05/31/20 04:52 Additional Labs: Accuchecks 05/31/20 05/30/20 05/30/20 06:27 20:51 16:00 POC Glucose 265 H 275 H 144 H 05/30/20 12:54 POC Glucose 95 Hospitalist ROS - Medication Medications: Active Medications Generic Name Dose Route Start Last Admin Trade Name Angelq PRN Reason Stop Dose Admin Acetaminophen 650 mg 05/25/20 18:57 05/31/20 09:20 Acetaminophen 650 Mg/20.3 Ml Udcup PER TUBE 650 mg Q4H PRN Administration Fever > 101 Albuterol Sulfate 2 puff 05/05/20 03:59 05/05/20 07:40 Albuterol 200 Puff (6.7gm Inhaler) INH 2 puff [id number] PRN Administration Wheezing Amlodipine Besylate 10 mg 05/15/20 09:00 05/31/20 09:21 Amlodipine 10 Mg Tab PER TUBE 10 mg DAILY ESTER Administration Carvedilol 6.25 mg 05/27/20 21:00 05/31/20 09:21 Carvedilol 6.25 Mg Tab PER TUBE 6.25 mg BID ESTER Administration Clonidine 0.2 mg 05/27/20 21:00 05/31/20 09:21 Clonidine 0.2 Mg Tab PER TUBE 0.2 mg BID ESTER Administration Epoetin Selwyn-epbx 10,000 unit 05/28/20 18:00 05/31/20 09:43 Epoetin Selwyn-Epbx (Esrd) 10,000 Unit/Ml Vial IVP 10,000 unit MoWeFr ESTER Administration Insulin Glargine 5 units/ 0.05 mls @ 0 mls/hr 05/13/20 09:00 05/31/20 09:20 Miscellaneous Medication SC 0.05 mls QAM ESTER Administration Piperacillin Sod/Tazobactam 100 mls @ 200 mls/hr 05/28/20 14:00 05/31/20 06:06 Sod 2.25 gm/ Sodium Chloride IVPB 100 mls Q8HR ESTER Administration Insulin Human Regular 0 units 05/13/20 09:28 05/31/20 09:22 Insulin Regular 300 Units/3 Ml Vial SC 2 unit .MODERATE SLIDING SC PRN Administration Moderate Correctional Scale Labetalol HCl 20 mg 05/12/20 05:37 05/29/20 11:27 Labetalol Hcl 100 Mg/20 Ml Vial SLOW IVP 20 mg Q4H PRN Administration SBP >170 Mometasone Furoate/Formoterol Fumar 2 puff 05/09/20 18:30 05/31/20 06:42 Mometasone 200 Mcg/Formoterol 5 Mcg 120 Puff Inhaler INH Not Given BID-RT ESTER Ondansetron HCl 4 mg 05/03/20 17:50 05/23/20 16:00 Ondansetron Pf 4 Mg/2 Ml Vial IVP 4 mg Q6H PRN Administration Nausea/Vomiting Pantoprazole Sodium 40 mg 05/24/20 21:00 05/31/20 09:22 Pantoprazole 40 Mg Vial IVP 40 mg Q12HR ESTER Administration Prednisone 40 mg 05/31/20 08:00 05/31/20 09:21 Prednisone 20 Mg Tab PO 40 mg QAM-WM ESTER Administration Scopolamine 1.5 mg 05/22/20 15:15 05/28/20 16:28 Scopolamine 1.5 Mg/72 Hour Patch TOP 1.5 mg Q3D ESTER Administration Sodium Chloride 10 ml 05/24/20 10:31 05/31/20 09:23 Flush - Normal Saline 10 Ml Syringe IVF 10 ml PRN PRN Administration Saline Flush Tramadol HCl 50 mg 05/26/20 21:00 05/30/20 20:40 Tramadol Hcl 50 Mg Tab PER TUBE 50 mg HS ESTER Administration - Exam Eye: PERRL, anicteric sclera Heart: RRR, no murmur, no gallops Respiratory: CTAB, no wheezes, no rales, no ronchi, normal chest expansion, no tachypnea Gastrointestinal: soft, non-tender, non-distended, normal bowel sounds, no palpable masses Extremities: no cyanosis, 1+ LE edema Hosp A/P (1) Pneumonia due to COVID-19 virus Code(s): U07.1 - COVID-19; J12.89 - OTHER VIRAL PNEUMONIA Status: Acute (2) Diabetes Code(s): E11.9 - TYPE 2 DIABETES MELLITUS WITHOUT COMPLICATIONS Status: Chronic Qualifiers: Diabetes mellitus type: type 2 Diabetes mellitus complication detail: with nephropathy 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 (3) Dyslipidemia Code(s): E78.5 - HYPERLIPIDEMIA, UNSPECIFIED Status: Chronic (4) HTN (hypertension) Code(s): I10 - ESSENTIAL (PRIMARY) HYPERTENSION Status: Chronic Qualifiers: Hypertension type: essential hypertension Qualified Code(s): I10 - Essential (primary) hypertension (5) Acute blood loss anemia Code(s): D62 - ACUTE POSTHEMORRHAGIC ANEMIA Status: Acute (6) DIC (disseminated intravascular coagulation) Code(s): D65 - DISSEMINATED INTRAVASCULAR COAGULATION Status: Acute (7) GI bleed Code(s): K92.2 - GASTROINTESTINAL HEMORRHAGE, UNSPECIFIED Status: Acute Qualifiers: GI bleed type/associated pathology: anorectal hemorrhage Qualified Code(s): K62.5 - Hemorrhage of anus and rectum (8) Hypokalemia Code(s): E87.6 - HYPOKALEMIA Status: Acute (9) Fever Code(s): R50.9 - FEVER, UNSPECIFIED Status: Acute - Plan * Acute respiratory failure with hypoxemia- due to COVID pneumonia- She now has a trach and PEG, and is off ventilator support with a trach collar * Fever- Continue Zosyn for Pseudomonas * Facial twitching- ? etiology- this may be a parial seizure- This is not as prominent today. However since she has been slow to awaken, it may be perera to rule out occult seizure as a possibility * HTN- blood pressure is stable * DM- blood glucose is a bit labile- will observe for now, and continue the current regimen * Acute on chronic kidney injury- stable- dialysis as per Nephrology * Anemia- H&H has been stable * Metabolic encephalopathy- not much improvment * DIC- due to COVID
[2020-05-31 11:07] LABS: Anion Gap 16 mmol/L (10-20); BUN (Urea Nitrogen) 39 mg/dL (9.8-20.1); Calc. Creatinine Clearance 25 mL/min (70-130); Calcium 7.7 mg/dL (7.8-10.44); Carbon Dioxide 27 mmol/L (23-31); Chloride 98 mmol/L (98-107); Glucose 188 mg/dL (80-115); Potassium 3.3 mmol/L (3.5-5.1); Sodium 138 mmol/L (136-145)
--- NOTE | 2020-05-31 13:20 | PRG ---
DATE OF SERVICE: 05/31/2020 SUBJECTIVE: Patient was seen and examined at bedside and overnight events noted. Patient denies any shortness of breath or chest pain or palpitation. No history of nausea or vomiting or diarrhea or fever or chills or cramps. OBJECTIVE: General: This is a 70-year-old female in no acute distress. Vital Signs: reviewed HEENT: Atraumatic, normocephalic. Oral mucosa is moist. Neck: Trach present. Cardiovascular: S1, S2 heard. Rate and rhythm regular. Respiratory: Clear to auscultation. Gastrointestinal: Abdomen is soft. Musculoskeletal: 1+ edema. Dermatologic: No skin rash. Neurologic: Alert and awake and oriented x3. No focal neurologic deficits. Moving all the extremities. Psychiatric: Mood and affect normal. LABORATORY DATA: Potassium 3.3, BUN is 39, creatinine is 2.9. ASSESSMENT AND PLAN: 1. End-stage renal disease. Continue on hemodialysis. 2. Hypokalemia. Cautious replacement is recommended. 3. Edema. 4. Hypertension. 5. COVID-19 infection. 6. Altered mentation. 7. Acute hypoxic respiratory failure. 8. Hypocalcemia. 9. Hyperglycemia. PLAN: Labs are stable. Continue dialysis on Thursday, Thursday, and Thursday. No dialysis today. Job ID: [id number] [facility]
--- NOTE | 2020-05-31 14:07 | CON ---
NEUROLOGY CONSULTATION DATE OF CONSULTATION: 05/31/2020 REASON FOR CONSULTATION: Altered mental status/seizures. HISTORY OF PRESENT ILLNESS: Ms. Reed is a 70-year-old female with a history significant for type 2 diabetes mellitus, hyperlipidemia, hypercholesterolemia, and hypertension, who was admitted to [facility] with fever and dry cough on 05/01/2020. Chest x-ray was done on initial evaluation. There was concern about basal pneumonia and the COVID test turned out positive. She was treated for pneumonia and developed respiratory distress, requiring intubation. The patient is currently status post tracheostomy and PEG tube. Neurology was consulted because since the last couple of days, she has been off sedation but difficult to wake her up. Seizure-like activity was also noted by the staff yesterday and she was given 1 mg of Ativan. Neurology was consulted to rule out seizures. REVIEW OF SYSTEMS: Unobtainable due to the patient's mental status. ALLERGIES: CLINDAMYCIN AND HYDROXYZINE. PAST MEDICAL HISTORY: Chronic kidney disease, hypertension, hyperlipidemia. She is status post COVID pneumonia. PAST SURGICAL HISTORY: PEG placement, tracheostomy placement, tubal ligation, cataract surgery. FAMILY HISTORY: No significant family history. SOCIAL HISTORY: There is no documented history of smoking, alcohol, or illegal drug use. She was independent before coming to the hospital. Vital Signs & Weight: Vital Signs (12 hours) Temp BP Pulse Ox 05/31/20 09:21 140/70 05/31/20 08:00 97.5 F L 96 05/31/20 06:47 94 L 05/31/20 04:00 98.7 F 05/31/20 02:18 94 L 05/31/20 00:00 98.1 F Weight Admit Weight 186 lb 4.8 oz Weight 195 lb 15.855 oz Most Recent Monitor Data Heart Rate from ECG 73 NIBP 128/63 NIBP BP-Mean 84 Respiration from ECG 36 SpO2 94 I&O: 05/30/20 05/31/20 06/01/20 06:59 06:59 06:59 Intake Total 770 1410 60 Output Total 0 0 Balance 770 1410 60 Additional Labs: Accuchecks 05/31/20 05/30/20 05/30/20 06:27 20:51 16:00 POC Glucose 265 H 275 H 144 H 05/30/20 12:54 POC Glucose 95 Active Medications Generic Name Dose Route Start Last Admin Trade Name Freq PRN Reason Stop Dose Admin Acetaminophen 650 mg 05/25/20 18:57 05/31/20 09:20 Acetaminophen 650 Mg/20.3 Ml Udcup PER TUBE 650 mg Q4H PRN Administration Fever > 101 Albuterol Sulfate 2 puff 05/05/20 03:59 05/05/20 07:40 Albuterol 200 Puff (6.7gm Inhaler) INH 2 puff [id number] PRN Administration Wheezing Amlodipine Besylate 10 mg 05/15/20 09:00 05/31/20 09:21 Amlodipine 10 Mg Tab PER TUBE 10 mg DAILY ESTER Administration Carvedilol 6.25 mg 05/27/20 21:00 05/31/20 09:21 Carvedilol 6.25 Mg Tab PER TUBE 6.25 mg BID ESTER Administration Clonidine 0.2 mg 05/27/20 21:00 05/31/20 09:21 Clonidine 0.2 Mg Tab PER TUBE 0.2 mg BID ESTER Administration Epoetin Selwyn-epbx 10,000 unit 05/28/20 18:00 05/31/20 09:43 Epoetin Selwyn-Epbx (Esrd) 10,000 Unit/Ml Vial IVP 10,000 unit MoWeFr ESTER Administration Insulin Glargine 5 units/ 0.05 mls @ 0 mls/hr 05/13/20 09:00 05/31/20 09:20 Miscellaneous Medication SC 0.05 mls QAM ESTER Administration Piperacillin Sod/Tazobactam 100 mls @ 200 mls/hr 05/28/20 14:00 05/31/20 06:06 Sod 2.25 gm/ Sodium Chloride IVPB 100 mls Q8HR ESTER Administration Insulin Human Regular 0 units 05/13/20 09:28 05/31/20 09:22 Insulin Regular 300 Units/3 Ml Vial SC 2 unit .MODERATE SLIDING SC PRN Administration Moderate Correctional Scale Labetalol HCl 20 mg 05/12/20 05:37 05/29/20 11:27 Labetalol Hcl 100 Mg/20 Ml Vial SLOW IVP 20 mg Q4H PRN Administration SBP >170 Mometasone Furoate/Formoterol Fumar 2 puff 05/09/20 18:30 05/31/20 06:42 Mometasone 200 Mcg/Formoterol 5 Mcg 120 Puff Inhaler INH Not Given BID-RT ESTER Ondansetron HCl 4 mg 05/03/20 17:50 05/23/20 16:00 Ondansetron Pf 4 Mg/2 Ml Vial IVP 4 mg Q6H PRN Administration Nausea/Vomiting Pantoprazole Sodium 40 mg 05/24/20 21:00 05/31/20 09:22 Pantoprazole 40 Mg Vial IVP 40 mg Q12HR ESTER Administration Prednisone 40 mg 05/31/20 08:00 05/31/20 09:21 Prednisone 20 Mg Tab PO 40 mg QAM-WM ESTER Administration Scopolamine 1.5 mg 05/22/20 15:15 05/28/20 16:28 Scopolamine 1.5 Mg/72 Hour Patch TOP 1.5 mg Q3D ESTER Administration Sodium Chloride 10 ml 05/24/20 10:31 05/31/20 09:23 Flush - Normal Saline 10 Ml Syringe IVF 10 ml PRN PRN Administration Saline Flush Tramadol HCl 50 mg 05/26/20 21:00 05/30/20 20:40 Tramadol Hcl 50 Mg Tab PER TUBE 50 mg HS ESTER Administration PHYSICAL EXAMINATION: GENERAL APPEARANCE: The patient does not wake up to verbal stimuli. Grimaces to noxious stimuli. She does not open eyes or follow commands. Eye: PERRL, anicteric sclera Heart: RRR, no murmur, no gallops Respiratory: CTAB, no wheezes, no rales, no ronchi, normal chest expansion, no tachypnea Gastrointestinal: soft, non-tender, non-distended, normal bowel sounds, no palpable masses Extremities: no cyanosis, 1+ LE edema NEUROLOGIC: Cranial nerves, pupils are 4 mm, round and reactive to light. Face symmetric. Tongue midline. Corneals positive. Cough positive. Motor, muscle tone and bulk are normal. No spontaneous movement of all 4 extremities seen during the rounds. Sensory, minimal withdrawal of all 4 extremities to nailbed pressure. Gait deferred due to patient's safety reason. DATA REVIEWED: I reviewed the labs, which were significant for the BUN of 89, creatinine of 3. She has been followed by Nephrology. ASSESSMENT AND PLAN: (1) Seizure Status: Acute (2) Diabetes Code(s): E11.9 - TYPE 2 DIABETES MELLITUS WITHOUT COMPLICATIONS Status: Chronic Qualifiers: Diabetes mellitus type: type 2 Diabetes mellitus complication detail: with nephropathy 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 (3) Dyslipidemia Code(s): E78.5 - HYPERLIPIDEMIA, UNSPECIFIED Status: Chronic (4) HTN (hypertension) Code(s): I10 - ESSENTIAL (PRIMARY) HYPERTENSION Status: Chronic Qualifiers: Hypertension type: essential hypertension Qualified Code(s): I10 - Essential (primary) hypertension (5) Acute blood loss anemia Code(s): D62 - ACUTE POSTHEMORRHAGIC ANEMIA Status: Acute (6) DIC (disseminated intravascular coagulation) Code(s): D65 - DISSEMINATED INTRAVASCULAR COAGULATION Status: Acute (7) GI bleed Code(s): K92.2 - GASTROINTESTINAL HEMORRHAGE, UNSPECIFIED Status: Acute Qualifiers: GI bleed type/associated pathology: anorectal hemorrhage Qualified Code(s): K62.5 - Hemorrhage of anus and rectum (8) Hypokalemia Code(s): E87.6 - HYPOKALEMIA Status: Acute (9) Fever Code(s): R50.9 - FEVER, UNSPECIFIED Status: Acute (10) Pneumonia due to COVID-19 virus Code(s): U07.1 - COVID-19; J12.89 - OTHER VIRAL PNEUMONIA Status: Acute Ms. Genia Reed is a 70-year-old female, who was consulted for altered mental status. She was admitted with COVID pneumonia and had multisystem organ failure requiring hemodialysis, altered mental status, secondary to infectious and metabolic etiology, but acute intracranial process cannot be completely ruled out and there is 1 episode suspicious for seizure activity. The patient does have risk factors for seizures, so consider starting Keppra 500 mg twice daily for seizure prophylaxis, Ativan 2 mg IV for seizure greater than 2 minutes. We will arrange for EEG to assess cortical irritability, and MRI of the brain to evaluate for seizure focus or to rule out stroke. Neuro checks every 4 hours. Continue medical management per primary team and Nephrology. Further recommendations will depend upon the results of the testing. PT/OT/speech. We will continue to follow. Plan discussed in detail with the nursing staff and also with the primary attending, Dr. Shelton Bettencourt. Thank you for the consult. Job ID: [id number] [facility]
[2020-05-31] MEDS: Scopolamine 1.5 mg/72 hour Patch TOP SCH (14:24)
--- NOTE | 2020-05-31 16:08 | PDOC.EEG ---
Neurology EEG Report - Report Report: This EEG was performed using 24 channel [employer] video EEG machine with 24 disc prosper ctrodes. Digital analysis of the EEG was done for spike and seizure detection which revealed no abnormalities. Background: The posterior background rhythm was not observed. Hyperventilation: Not performed. Photic Stimulation: No significant response. Sleep: No stage change is observed. Spells: None EEG Diagnosis: Generalized irregular theta delta activity seen throughout the recording. Absence of Posterior background rhythm. Clinical Interpretation: This EEG is consistent with moderate generalized nonspecific cerebral dysfunction. No electrographic seizures captured during the recording.
[2020-05-31] MEDS: traMADol HCl 50 MG TAB PER TUBE SCH (20:41)
[2020-06-01 04:59] LABS: #Eosinphils 0.1 thou/uL (0.0-0.7); #Lymphocytes 1.5 thou/uL (1.20-3.40); #Neutrophils 9.7 thou/uL (1.40-6.50); %Basophils 0.4 % (0.0-1.0); %Lymphocytes 12.5 % (21.0-51.0); %Monocytes 7.7 % (0.0-10.0); %Neutrophils 78.4 % (42.0-75.0); Hemoglobin 7.9 g/dL (12.0-16.0); Mean Corpuscular HGB CONC 32.6 g/dL (32.0-36.0); Mean Corpuscular Hemoglobin 29.7 pg (27.0-31.0); Mean Corpuscular Volume 91.1 fL (78.0-98.0); Mean Platelet Volume 8.5 fL (7.4-10.4); Platelet Count 252 thou/uL (130-400); Red Blood Cell (RBC) Count 2.66 mill/uL (4.20-5.40); White Blood Cell (WBC) Count 12.3 thou/uL (4.8-10.8)
[2020-06-01 05:03] LABS: INR-International Normal Ratio 1.1
[2020-06-01 05:04] LABS: PTT 33.9 sec (22.9-36.1)
[2020-06-01] MEDS: Insulin Regular 300 UNITS/3 ML VIAL SC PRN ×4 (05:18→20:28)
[2020-06-01] MEDS: Piperacillin/Tazobactam 2.25 GM in Sodium Chloride 0.9% 100 ML IVPB SCH ×3 (05:24→21:14)
[2020-06-01] MEDS: Mometasone 200 MCG/Formoterol 5 MCG 120 PUFF INHALER INH SCH ×2 (07:18→20:10)
[2020-06-01] MEDS: Acetaminophen 650 MG/20.3 ML UDCUP PER TUBE PRN (08:17)
[2020-06-01] MEDS: predniSONE 20 MG TAB PO SCH (08:18)
[2020-06-01] MEDS: Insulin Glargine 5 UNITS in Pre-Filled Syringe SC SCH (08:18)
[2020-06-01] MEDS: cloNIDine 0.2 MG TAB PER TUBE SCH ×2 (08:18→20:25)
[2020-06-01] MEDS: Carvedilol 6.25 MG TAB PER TUBE SCH ×2 (08:18→20:27)
[2020-06-01] MEDS: Amlodipine 10 MG TAB PER TUBE SCH (08:18)
[2020-06-01] MEDS: Pantoprazole 40 MG VIAL IVP SCH ×2 (08:19→20:27)
--- NOTE | 2020-06-01 09:27 | PRG ---
DATE OF SERVICE: 06/01/2020 SUBJECTIVE: She remains in a trach collar, in no distress. She appears to be slightly more responsive. OBJECTIVE: VITAL SIGNS: Saturations are adequate with no respiratory distress at 95% to 96%, blood pressure 140/70, respirations 18. CHEST: No wheezing. No crackles. CARDIAC: Normal S1 and S2. No gallops. ABDOMEN: Soft LABORATORY DATA: Unremarkable. ASSESSMENT: Respiratory failure, lim positive pneumonia, renal failure, encephalopathy. PLAN: She is slowly getting better, will require long-term placement for her. We will start decreasing the prednisone. One-half hour of critical care time. Job ID: [id number]
--- NOTE | 2020-06-01 10:30 | PDOC.HOSPP ---
- Subjective Encounter Date: 06/01/20 Encounter Time: 10:29 Subjective: Ms. Reed was seen today in follow-up of COVID pneumonia. She is on a trach collar. She is about the same neurologically today as yesterday. - Objective Vital Signs & Weight: Vital Signs (12 hours) Temp BP Pulse Ox 06/01/20 08:18 140/70 06/01/20 08:00 99.2 F 06/01/20 07:47 95 06/01/20 06:48 91 L 06/01/20 04:00 99.1 F 06/01/20 03:00 98 06/01/20 00:00 98.2 F 05/31/20 22:39 97 Weight Admit Weight 186 lb 4.8 oz Weight 195 lb 12.328 oz Most Recent Monitor Data Heart Rate from ECG 65 NIBP 148/68 NIBP BP-Mean 94 Respiration from ECG 32 SpO2 95 I&O: 05/31/20 06/01/20 06/02/20 06:59 06:59 06:59 Intake Total 1410 1749 60 Output Total 0 0 0 Balance 1410 1749 60 Result Diagrams: 06/01/20 04:15 05/31/20 10:26 Additional Labs: Accuchecks 06/01/20 06/01/20 05/31/20 08:10 05:16 20:47 POC Glucose 194 H 260 H 260 H 05/31/20 05/31/20 17:11 09:07 POC Glucose 308 H 179 H Hospitalist ROS - Medication Medications: Active Medications Generic Name Dose Route Start Last Admin Trade Name Freq PRN Reason Stop Dose Admin Acetaminophen 650 mg 05/25/20 18:57 06/01/20 08:17 Acetaminophen 650 Mg/20.3 Ml Udcup PER TUBE 650 mg Q4H PRN Administration Fever > 101 Albuterol Sulfate 2 puff 05/05/20 03:59 05/05/20 07:40 Albuterol 200 Puff (6.7gm Inhaler) INH 2 puff [id number] PRN Administration Wheezing Amlodipine Besylate 10 mg 05/15/20 09:00 06/01/20 08:18 Amlodipine 10 Mg Tab PER TUBE 10 mg DAILY ESTER Administration Carvedilol 6.25 mg 05/27/20 21:00 06/01/20 08:18 Carvedilol 6.25 Mg Tab PER TUBE 6.25 mg BID ESTER Administration Clonidine 0.2 mg 05/27/20 21:00 06/01/20 08:18 Clonidine 0.2 Mg Tab PER TUBE 0.2 mg BID ESTER Administration Epoetin Selwyn-epbx 10,000 unit 05/28/20 18:00 05/31/20 09:43 Epoetin Selwyn-Epbx (Esrd) 10,000 Unit/Ml Vial IVP 10,000 unit MoWeFr ESTER Administration Insulin Glargine 5 units/ 0.05 mls @ 0 mls/hr 05/13/20 09:00 06/01/20 08:18 Miscellaneous Medication SC 0.05 mls QAM ESTER Administration Piperacillin Sod/Tazobactam 100 mls @ 200 mls/hr 05/28/20 14:00 06/01/20 05:24 Sod 2.25 gm/ Sodium Chloride IVPB 100 mls Q8HR ESTER Administration Insulin Human Regular 0 units 05/13/20 09:28 06/01/20 08:20 Insulin Regular 300 Units/3 Ml Vial SC 2 unit .MODERATE SLIDING SC PRN Administration Moderate Correctional Scale Labetalol HCl 20 mg 05/12/20 05:37 05/29/20 11:27 Labetalol Hcl 100 Mg/20 Ml Vial SLOW IVP 20 mg Q4H PRN Administration SBP >170 Mometasone Furoate/Formoterol Fumar 2 puff 05/09/20 18:30 06/01/20 07:18 Mometasone 200 Mcg/Formoterol 5 Mcg 120 Puff Inhaler INH Not Given BID-RT ESTER Ondansetron HCl 4 mg 05/03/20 17:50 05/23/20 16:00 Ondansetron Pf 4 Mg/2 Ml Vial IVP 4 mg Q6H PRN Administration Nausea/Vomiting Pantoprazole Sodium 40 mg 05/24/20 21:00 06/01/20 08:19 Pantoprazole 40 Mg Vial IVP 40 mg Q12HR ESTER Administration Prednisone 40 mg 05/31/20 08:00 06/01/20 08:18 Prednisone 20 Mg Tab PO 40 mg QAM-WM ESTER Administration Scopolamine 1.5 mg 05/22/20 15:15 05/31/20 14:24 Scopolamine 1.5 Mg/72 Hour Patch TOP 1.5 mg Q3D ESTER Administration Sodium Chloride 10 ml 05/24/20 10:31 05/31/20 09:23 Flush - Normal Saline 10 Ml Syringe IVF 10 ml PRN PRN Administration Saline Flush Tramadol HCl 50 mg 05/26/20 21:00 05/31/20 20:41 Tramadol Hcl 50 Mg Tab PER TUBE 50 mg HS ESTER Administration - Exam Eye: PERRL, anicteric sclera Heart: RRR, no murmur, no gallops, no rubs, normal peripheral pulses Respiratory: rales Gastrointestinal: soft, non-tender, non-distended, normal bowel sounds, no palpable masses, no hepatomegaly Extremities: no cyanosis, 1+ LE edema (pulses are palpable) Hosp A/P (1) Pneumonia due to COVID-19 virus Code(s): U07.1 - COVID-19; J12.89 - OTHER VIRAL PNEUMONIA Status: Acute (2) Diabetes Code(s): E11.9 - TYPE 2 DIABETES MELLITUS WITHOUT COMPLICATIONS Status: Chronic Qualifiers: Diabetes mellitus type: type 2 Diabetes mellitus complication detail: with nephropathy 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 (3) Dyslipidemia Code(s): E78.5 - HYPERLIPIDEMIA, UNSPECIFIED Status: Chronic (4) HTN (hypertension) Code(s): I10 - ESSENTIAL (PRIMARY) HYPERTENSION Status: Chronic Qualifiers: Hypertension type: essential hypertension Qualified Code(s): I10 - Essential (primary) hypertension (5) Acute blood loss anemia Code(s): D62 - ACUTE POSTHEMORRHAGIC ANEMIA Status: Acute (6) DIC (disseminated intravascular coagulation) Code(s): D65 - DISSEMINATED INTRAVASCULAR COAGULATION Status: Acute (7) GI bleed Code(s): K92.2 - GASTROINTESTINAL HEMORRHAGE, UNSPECIFIED Status: Acute Qualifiers: GI bleed type/associated pathology: anorectal hemorrhage Qualified Code(s): K62.5 - Hemorrhage of anus and rectum (8) Hypokalemia Code(s): E87.6 - HYPOKALEMIA Status: Acute (9) Fever Code(s): R50.9 - FEVER, UNSPECIFIED Status: Acute - Plan * Acute respiratory failure with hypoxemia- due to COVID pneumonia- She now has a trach and PEG, and is off ventilator support with a trach collar * Fever- Continue Zosyn for Pseudomonas * Facial twitching- ? etiology- t work-up for seizure is in progress. Discussed with Dr. Menchaca * HTN- blood pressure is stable * DM- blood glucose is a bit labile- continue the current regimen and cover with SSI * Acute on chronic kidney injury- stable- dialysis as per Nephrology * Anemia- H&H has been stable * Metabolic encephalopathy- not much improvment * DIC- due to COVID * Diarrhea- will check C. Diff
--- NOTE | 2020-06-01 12:09 | PRG ---
DATE OF SERVICE: 06/01/2020 SUBJECTIVE: The patient is seen and examined at bedside and nonverbal. OBJECTIVE: GENERAL: Elderly female, who is nonverbal. VITAL SIGNS: Temperature 99.2, pulse 73, respiratory rate 32, blood pressure 140/70. [facility] Neuro - non responsive ASSESSMENT: 1. End-stage renal disease. Continue on hemodialysis. Plan to have dialysis today and continue dialysis Thursday, Thursday, and Thursday. 2. Hypokalemia. We will monitor. 3. Coronavirus disease 2019. 4. Altered mentation. 5. Acute hypoxic respiratory failure. PLAN: We will monitor labs. Continue dialysis as tolerated. Prognosis remains poor. Job ID[facility] [id number] [facility]
[2020-06-01] MEDS ORDERED: Lorazepam 2 MG/ML VIAL SLOW IVP SCH (13:15)
--- NOTE | 2020-06-01 13:37 | PDOC.NEUPN ---
- Subjective Encounter Date: 06/01/20 Subjective: Mrs. Reed was undergoing dialysis during the time of the rounds. She has constant twitching of her mouth with no obvious EEG correlate. These seem to be focal motor seizures emanating from the frontal motor strip which are difficult to capture on the scalp recording. - Objective Vital Signs & Weight: Vital Signs (12 hours) Temp BP Pulse Ox 06/01/20 12:00 99 F 06/01/20 08:18 140/70 06/01/20 08:00 99.2 F 06/01/20 07:47 95 06/01/20 06:48 91 L 06/01/20 04:00 99.1 F 06/01/20 03:00 98 Weight Admit Weight 186 lb 4.8 oz Weight 195 lb 12.328 oz Most Recent Monitor Data Heart Rate from ECG 67 NIBP 130/69 NIBP BP-Mean 89 Respiration from ECG 28 SpO2 97 I&O: 05/31/20 06/01/20 06/02/20 06:59 06:59 06:59 Intake Total 1410 1749 90 Output Total 0 0 0 Balance 1410 1749 90 Result Diagrams: 06/01/20 04:15 05/31/20 10:26 Additional Labs: Accuchecks 06/01/20 06/01/20 05/31/20 08:10 05:16 20:47 POC Glucose 194 H 260 H 260 H 05/31/20 05/31/20 17:11 09:07 POC Glucose 308 H 179 H Radiology Reviewed by me: Yes EKG Reviewed by me: Yes ROS - Review of Systems ROS unobtainable: due to mental status - Medication Medications: Active Medications Generic Name Dose Route Start Last Admin Trade Name Freq PRN Reason Stop Dose Admin Acetaminophen 650 mg 05/25/20 18:57 06/01/20 08:17 Acetaminophen 650 Mg/20.3 Ml Udcup PER TUBE 650 mg Q4H PRN Administration Fever > 101 Albuterol Sulfate 2 puff 05/05/20 03:59 05/05/20 07:40 Albuterol 200 Puff (6.7gm Inhaler) INH 2 puff [id number] PRN Administration Wheezing Amlodipine Besylate 10 mg 05/15/20 09:00 06/01/20 08:18 Amlodipine 10 Mg Tab PER TUBE 10 mg DAILY ESTER Administration Carvedilol 6.25 mg 05/27/20 21:00 06/01/20 08:18 Carvedilol 6.25 Mg Tab PER TUBE 6.25 mg BID ESTER Administration Clonidine 0.2 mg 05/27/20 21:00 06/01/20 08:18 Clonidine 0.2 Mg Tab PER TUBE 0.2 mg BID ESTER Administration Epoetin Selwyn-epbx 10,000 unit 05/28/20 18:00 05/31/20 09:43 Epoetin Selwyn-Epbx (Esrd) 10,000 Unit/Ml Vial IVP 10,000 unit MoWeFr ESTER Administration Insulin Glargine 5 units/ 0.05 mls @ 0 mls/hr 05/13/20 09:00 06/01/20 08:18 Miscellaneous Medication SC 0.05 mls QAM ESTER Administration Piperacillin Sod/Tazobactam 100 mls @ 200 mls/hr 05/28/20 14:00 06/01/20 13:14 Sod 2.25 gm/ Sodium Chloride IVPB 100 mls Q8HR ESTER Administration Insulin Human Regular 0 units 05/13/20 09:28 06/01/20 08:20 Insulin Regular 300 Units/3 Ml Vial SC 2 unit .MODERATE SLIDING SC PRN Administration Moderate Correctional Scale Labetalol HCl 20 mg 05/12/20 05:37 05/29/20 11:27 Labetalol Hcl 100 Mg/20 Ml Vial SLOW IVP 20 mg Q4H PRN Administration SBP >170 Lorazepam 2 mg 06/01/20 13:15 06/01/20 13:15 Lorazepam 2 Mg/Ml Vial SLOW IVP 06/01/20 15:00 2 mg NOW ESTER Administration Mometasone Furoate/Formoterol Fumar 2 puff 05/09/20 18:30 06/01/20 07:18 Mometasone 200 Mcg/Formoterol 5 Mcg 120 Puff Inhaler INH Not Given BID-RT ESTER Ondansetron HCl 4 mg 05/03/20 17:50 05/23/20 16:00 Ondansetron Pf 4 Mg/2 Ml Vial IVP 4 mg Q6H PRN Administration Nausea/Vomiting Pantoprazole Sodium 40 mg 05/24/20 21:00 06/01/20 08:19 Pantoprazole 40 Mg Vial IVP 40 mg Q12HR ESTER Administration Prednisone 40 mg 05/31/20 08:00 06/01/20 08:18 Prednisone 20 Mg Tab PO 40 mg QAM-WM ESTER Administration Scopolamine 1.5 mg 05/22/20 15:15 05/31/20 14:24 Scopolamine 1.5 Mg/72 Hour Patch TOP 1.5 mg Q3D ESTER Administration Sodium Chloride 10 ml 05/24/20 10:31 05/31/20 09:23 Flush - Normal Saline 10 Ml Syringe IVF 10 ml PRN PRN Administration Saline Flush Tramadol HCl 50 mg 05/26/20 21:00 05/31/20 20:41 Tramadol Hcl 50 Mg Tab PER TUBE 50 mg HS ESTER Administration - Exam General Appearance: ill appearing Eye: PERRL ENT: normocephalic atraumatic Neck: supple Respiratory: CTAB Cardiovascular: RRR Gastrointestinal: soft Extremities: no cyanosis Skin: normal turgor Neurological: no new deficit Musculoskeletal: no muscle wasting PSYCH: not oriented, lethargic Results - Labs Result Diagrams: 06/01/20 04:15 05/31/20 10:26 Lab results: WBC 12.3 thou/uL (4.8-10.8) H 06/01/20 04:15 Hgb 7.9 g/dL (12.0-16.0) L 06/01/20 04:15 Hct 24.2 % (36.0-47.0) L 06/01/20 04:15 MCV 91.1 fL (78.0-98.0) 06/01/20 04:15 Plt Count 252 thou/uL (130-400) 06/01/20 04:15 Neutrophils % 78.4 % (42.0-75.0) H 06/01/20 04:15 Band Neuts % (Manual) 7 % (5-11) 05/26/20 03:30 ABG pH 7.40 (7.35-7.45) 05/17/20 07:40 ABG pCO2 35.9 mmHg (35.0-45.0) 05/17/20 07:40 ABG pO2 65.4 mmHg (> 80.0) 05/17/20 07:40 Sodium 138 mmol/L (136-145) 05/31/20 10:26 Potassium 3.3 mmol/L (3.5-5.1) L 05/31/20 10:26 Chloride 98 mmol/L (98-107) 05/31/20 10:26 Carbon Dioxide 27 mmol/L (23-31) 05/31/20 10:26 BUN 39 mg/dL (9.8-20.1) H 05/31/20 10:26 Creatinine 2.95 mg/dL (0.6-1.1) H 05/31/20 10:26 Glucose 188 mg/dL (80-115) H 05/31/20 10:26 Lactic Acid 0.5 mmol/L (0.5-2.2) 05/05/20 05:11 Calcium 7.7 mg/dL (7.8-10.44) L 05/31/20 10:26 Total Bilirubin 0.7 mg/dL (0.2-1.2) 05/29/20 03:45 AST 22 U/L (5-34) 05/29/20 03:45 ALT 22 U/L (8-55) 05/29/20 03:45 Alkaline Phosphatase 115 U/L (40-110) H 05/29/20 03:45 Creatine Kinase 75 U/L (29-168) 05/01/20 20:12 CK-MB (CK-2) 0.3 ng/mL (0-6.6) 05/01/20 20:12 Troponin I 0.080 ng/mL (< 0.028) H 05/01/20 20:12 C-Reactive Protein 5.95 mg/dL (= or < 0.5) H 05/25/20 03:30 B-Natriuretic Peptide 203.4 pg/mL (0-100) H 05/10/20 04:58 Serum Total Protein 5.7 g/dL (6.0-8.3) L 05/29/20 03:45 Albumin 2.6 g/dL (3.4-4.8) L 05/29/20 03:45 - Radiology Interpretation CT scan - head Additional Comment: Head CT on 05/23/2020 was negative for acute intracranial pathology PN A/P (1) AMS (altered mental status) Code(s): R41.82 - ALTERED MENTAL STATUS, UNSPECIFIED Status: Acute (2) Physical deconditioning Code(s): R53.81 - OTHER MALAISE Status: Acute (3) Pneumonia due to COVID-19 virus Code(s): U07.1 - COVID-19; J12.89 - OTHER VIRAL PNEUMONIA Status: Acute (4) Metabolic acidosis Code(s): E87.2 - ACIDOSIS Status: Resolved (5) Anemia of renal disease Code(s): D63.1 - ANEMIA IN CHRONIC KIDNEY DISEASE Status: Chronic (6) Diabetes Code(s): E11.9 - TYPE 2 DIABETES MELLITUS WITHOUT COMPLICATIONS Status: Chronic Qualifiers: Diabetes mellitus type: type 2 Diabetes mellitus complication detail: with nephropathy 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 (7) Dyslipidemia Code(s): E78.5 - HYPERLIPIDEMIA, UNSPECIFIED Status: Chronic (8) Elevated liver enzymes Code(s): R74.8 - ABNORMAL LEVELS OF OTHER SERUM ENZYMES Status: Chronic (9) Peripheral neuropathy Code(s): G62.9 - POLYNEUROPATHY, UNSPECIFIED Status: Chronic Qualifiers: Peripheral neuropathy type: polyneuropathy, unspecified Qualified Code(s): G62.9 - Polyneuropathy, unspecified - Plan Daily Plan: PT/OT, speech therapy, DVT proph w/SCDs Mrs. Vela is a 70-year-old female who is still s/p tracheostomy and PEG tube because of Covid pneumonia consulted by neurology for altered mental status for the last 2 to 3 days. Patient has been off sedation and is difficult to awake. During the rounds, facial twitching is noted with seems to be clinical focal motor seizures emanating from the frontal strip which are difficult to capture on the scalp recording. EEG negative for seizure activity but as mentioned above focal brief seizures for the frontal motor strip but difficult to capture on the scalp recording. She is loaded with Keppra and started on 500 mg IV every 12 hours. Ativan 2 mg IV for seizure greater than 2 minutes. Neurochecks every 4 hours. Observe seizure precautions MRI of the brain to evaluate for seizure focus or to rule out any acute intracranial process. Continue home medications. Continue medical management per primary team. And discussed in detail with the nursing staff and also with the primary attending Dr. Shelton Bettencourt
[2020-06-01] MEDS: levETIRAcetam in NS 500 MG in Premix Bag 1 BAG IVPB SCH (13:58)
--- NOTE | 2020-06-01 14:58 | PDOC.EEG ---
Neurology EEG Report - Report Report: This EEG was performed using 24 channel [employer] video digital EEG machine with 24 disc electrodes. This was an extended 2-hour 17 minutes of inpatient video EEG recording. Digital analysis of the EEG was done which did not reveal any abnormalities Background: The posterior background rhythm was not observed Hyperventilation: Not performed. Photic stimulation: No significant response seen with photic stimulation. Sleep: No stage change well performed. EEG diagnosis: Generalized irregular delta theta activity seen throughout the recording. Absence of posterior background rhythm. Clinical interpretation: This EEG is consistent with moderate generalized nonspecific cerebral dysfunction.
[2020-06-01] MEDS: EPOETIN ALFA-EPBX (ESRD) 10,000 UNIT/ML VIAL IVP SCH (17:50)
[2020-06-01] MEDS: traMADol HCl 50 MG TAB PER TUBE SCH (20:25)
[2020-06-01] MEDS ORDERED: levETIRAcetam 500 MG TAB PER TUBE SCH (21:00)
[2020-06-02] MEDS: levETIRAcetam in NS 500 MG in Premix Bag 1 BAG IVPB SCH ×2 (01:44→15:48)
[2020-06-02 04:21] LABS: #Eosinphils 0.4 thou/uL (0.0-0.7); #Lymphocytes 1.4 thou/uL (1.20-3.40); #Monocytes 0.9 thou/uL (0.11-0.59); #Neutrophils 9.5 thou/uL (1.40-6.50); %Basophils 0.1 % (0.0-1.0); %Eosinophils 3.2 % (0.0-10.0); %Lymphocytes 11.2 % (21.0-51.0); %Monocytes 7.2 % (0.0-10.0); %Neutrophils 78.3 % (42.0-75.0); Hemoglobin 7.7 g/dL (12.0-16.0); Mean Corpuscular HGB CONC 32.5 g/dL (32.0-36.0); Mean Corpuscular Hemoglobin 29.8 pg (27.0-31.0); Mean Corpuscular Volume 91.6 fL (78.0-98.0); Mean Platelet Volume 7.9 fL (7.4-10.4); Platelet Count 241 thou/uL (130-400); RBC Distribution Width 15.6 % (11.5-14.5); Red Blood Cell (RBC) Count 2.58 mill/uL (4.20-5.40); White Blood Cell (WBC) Count 12.1 thou/uL (4.8-10.8)
[2020-06-02 04:22] LABS: INR-International Normal Ratio 1.1; PTT 37.8 sec (22.9-36.1); Prothrombin Time 14.1 sec (12.0-14.7)
[2020-06-02] MEDS: Insulin Regular 300 UNITS/3 ML VIAL SC PRN ×3 (04:24→17:27)
[2020-06-02] MEDS: Piperacillin/Tazobactam 2.25 GM in Sodium Chloride 0.9% 100 ML IVPB SCH ×3 (05:33→23:06)
[2020-06-02] MEDS: Mometasone 200 MCG/Formoterol 5 MCG 120 PUFF INHALER INH SCH ×2 (08:07→18:42)
[2020-06-02] MEDS: Carvedilol 6.25 MG TAB PER TUBE SCH ×2 (08:11→21:33)
[2020-06-02] MEDS: Pantoprazole 40 MG VIAL IVP SCH ×2 (08:11→21:35)
[2020-06-02] MEDS: Insulin Glargine 5 UNITS in Pre-Filled Syringe SC SCH (08:11)
[2020-06-02] MEDS: predniSONE 20 MG TAB PO SCH (08:11)
[2020-06-02] MEDS: Amlodipine 10 MG TAB PER TUBE SCH (08:12)
[2020-06-02] MEDS: cloNIDine 0.2 MG TAB PER TUBE SCH ×2 (08:12→21:35)
--- NOTE | 2020-06-02 17:24 | PRG ---
DATE OF SERVICE: 06/02/2020 SUBJECTIVE: Ms. Reed for several days on a trach collar. Her hemodynamics had been stable. She is at a point where she could be transferred out of the Critical Care Unit as long as someone is available to sit with her so she can readily call for help. OBJECTIVE: VITAL SIGNS: She is afebrile. Heart rate 70, respiratory rates in the 20s, oximetry is 94% on 40% trach collar. LUNGS: Unchanged. HEART: Unchanged. ABDOMEN: Unchanged. LABORATORY DATA: White count 12.1, hemoglobin 7.7, platelets 241. Electrolytes have not been checked since the . IMPRESSION: 1. Respiratory failure, status post tracheostomy. 2. COVID pneumonia. 3. Gastrointestinal bleed. 4. Encephalopathy secondary to her critical illness, most likely. 5. Chronic kidney disease, followed by Nephrology. Lab work probably needs to be repeated. PLAN: We will continue to follow. She will be transferred out of the Critical Care Unit. Job ID: [id number]
--- NOTE | 2020-06-02 19:04 | PRG ---
DATE OF SERVICE: 06/02/2020 SUBJECTIVE: The patient was seen and examined at the bedside, nonverbal. OBJECTIVE: GENERAL: This is an elderly female. VITAL SIGNS: Temperature 98, pulse 70, respiratory rate 28, blood pressure 137/65. HEENT: Atraumatic, normocephalic. CV: S1 and S2 heard. RESPIRATORY: Clear. MUSCULOSKELETAL: 1+ edema. NEUROLOGIC: Not responding. ASSESSMENT AND PLAN: 1. End-stage renal disease. Continue dialysis on Thursday, Thursday, Thursday. 2. Hypokalemia, stable. 3. History of COVID-19 infection. 4. Altered mentation. 5. Acute hypoxic respiratory failure. 6. Edema. 7. History of hypertension. 8. Anemia. We will add Epogen. 9. Continue Epogen with dialysis. We will follow. Job ID: [id number]
[2020-06-02] MEDS: traMADol HCl 50 MG TAB PER TUBE SCH (21:33)
[2020-06-03] MEDS ORDERED: levETIRAcetam 500 MG/100 ML PREMIX BAG ONE (02:22)
[2020-06-03] MEDS: levETIRAcetam in NS 500 MG in Premix Bag 1 BAG IVPB SCH ×2 (02:40→15:15)
[2020-06-03] MEDS: Insulin Regular 300 UNITS/3 ML VIAL SC PRN ×3 (05:35→23:20)
[2020-06-03] MEDS: Piperacillin/Tazobactam 2.25 GM in Sodium Chloride 0.9% 100 ML IVPB SCH ×3 (05:43→21:22)
[2020-06-03] MEDS: Mometasone 200 MCG/Formoterol 5 MCG 120 PUFF INHALER INH SCH ×2 (05:45→21:23)
[2020-06-03 09:29] LABS: Hemoglobin 8.3 g/dL (12.0-16.0); Mean Corpuscular HGB CONC 32.4 g/dL (32.0-36.0); Mean Corpuscular Hemoglobin 29.4 pg (27.0-31.0); RBC Distribution Width 15.2 % (11.5-14.5); Red Blood Cell (RBC) Count 2.81 mill/uL (4.20-5.40)
[2020-06-03 09:34] LABS: PTT 35.2 sec (22.9-36.1); Prothrombin Time 13.4 sec (12.0-14.7)
[2020-06-03 09:49] LABS: Anion Gap 16 mmol/L (10-20); BUN (Urea Nitrogen) 62 mg/dL (9.8-20.1); Calc. Creatinine Clearance 19 mL/min (70-130); Calcium 7.8 mg/dL (7.8-10.44); Carbon Dioxide 24 mmol/L (23-31); Chloride 95 mmol/L (98-107); Glucose 242 mg/dL (80-115); Potassium 3.3 mmol/L (3.5-5.1); Sodium 132 mmol/L (136-145)
[2020-06-03] MEDS: cloNIDine 0.2 MG TAB PER TUBE SCH ×2 (10:10→21:19)
[2020-06-03] MEDS: Pantoprazole 40 MG VIAL IVP SCH ×2 (10:10→21:22)
[2020-06-03] MEDS: Carvedilol 6.25 MG TAB PER TUBE SCH ×2 (10:11→21:20)
[2020-06-03] MEDS: predniSONE 20 MG TAB PO SCH (10:11)
[2020-06-03] MEDS: Amlodipine 10 MG TAB PER TUBE SCH (10:11)
[2020-06-03] MEDS: Insulin Glargine 5 UNITS in Pre-Filled Syringe SC SCH (10:13)
[2020-06-03 12:18] LABS: Anisocytosis SLIGHT = 6-15 cells (100X) (0-5/hpf); Eosinophils 1 % (0-10); Lymphocytes 12 % (21-51); MDiff Complete? YES; Mean Platelet Volume 8.2 fL (7.4-10.4); Monocytes 7 % (0-10); Neutrophil 79 % (42-75); Nucleated RBC 4 % (0); Platelet Count 284 thou/uL (130-400); Platelet Morphology Comment Appears Adequate; Polychromasia SLIGHT = 2-3 cells (100X) (0-2/hpf); Reactive Lymphocytes 1 % (0-10); White Blood Cell (WBC) Count 13.4 thou/uL (4.8-10.8)
--- NOTE | 2020-06-03 15:01 | PRG ---
DATE OF SERVICE: 06/03/2020 SUBJECTIVE: Ms. Reed is clinically unchanged. OBJECTIVE: VITAL SIGNS: She is afebrile. Heart rates in the 60s, blood pressure 156/73, oximetry on a trach collar is 94% to 96%. LUNGS: Otherwise unchanged. HEART: Otherwise unchanged. ABDOMEN: Otherwise unchanged. IMPRESSION: 1. End-stage renal disease. 2. History of COVID infection, now with tracheostomy. 3. Encephalopathy. 4. History of hypertension. PLAN: Continue supportive care. Placement will be the next step. Job ID: [id number]
--- NOTE | 2020-06-03 15:13 | PRG ---
DATE OF SERVICE: 06/03/2020 SUBJECTIVE: The patient is noncommunicating. OBJECTIVE: VITAL SIGNS: Temperature 98.1, pulse 65, respiratory rate 20, and blood pressure 140/65. HEENT: Atraumatic, normocephalic. CV: S1 and S2 heard. RESPIRATORY: Clear. GASTROINTESTINAL: Abdomen is soft. MUSCULOSKELETAL: 1+ edema. NEUROLOGIC: non responsive LABORATORY DATA: Potassium 3.3, BUN is 62, and creatinine is 3.7. ASSESSMENT AND PLAN: 1. End-stage renal disease. Continue dialysis. 2. Hypokalemia. 3. Hyponatremia. 4. Edema. 5. History of COVID-19 infection. 6. Acute hypoxic respiratory failure. 7. Anemia. 8. Altered mentation. Prognosis is guarded. Continue dialysis as tolerated. Job ID: [id number] MTDD
[2020-06-03] MEDS: Scopolamine 1.5 mg/72 hour Patch TOP SCH (15:15)
--- NOTE | 2020-06-03 19:01 | PDOC.HOSPP ---
- Subjective Encounter Date: 06/03/20 Encounter Time: 18:45 Subjective: dtr at bedside; she is on high flow o2; d/w RN, tolerating TF, no BMs, urine output ok - Objective Vital Signs & Weight: Vital Signs (12 hours) Temp Pulse Resp BP BP BP Pulse Ox 06/03/20 16:55 98.3 F 06/03/20 16:00 98 06/03/20 15:08 97 06/03/20 12:38 98.1 F 65 20 140/65 06/03/20 11:26 96 06/03/20 11:02 94 L 06/03/20 10:11 71 156/73 H 06/03/20 10:10 156/73 H 06/03/20 09:06 98.9 F 71 28 H 156/73 H 100 06/03/20 09:00 95 Weight Admit Weight 186 lb 4.8 oz Weight 191 lb 12 oz Most Recent Monitor Data Heart Rate from ECG 64 NIBP 136/65 NIBP BP-Mean 88 Respiration from ECG 14 SpO2 95 I&O: 06/02/20 06/03/20 06/04/20 06:59 06:59 06:59 Intake Total 1550 1160 Output Total 0 Balance 1550 1160 Result Diagrams: 06/03/20 09:15 06/03/20 09:15 Additional Labs: Accuchecks 06/03/20 06/03/20 06/02/20 16:31 05:26 20:40 POC Glucose 387 H 282 H 250 H Hospitalist ROS - Medication Medications: Active Medications Generic Name Dose Route Start Last Admin Trade Name Freq PRN Reason Stop Dose Admin Acetaminophen 650 mg 05/25/20 18:57 06/01/20 08:17 Acetaminophen 650 Mg/20.3 Ml Udcup PER TUBE 650 mg Q4H PRN Administration Fever > 101 Albuterol Sulfate 2 puff 05/05/20 03:59 05/05/20 07:40 Albuterol 200 Puff (6.7gm Inhaler) INH 2 puff [id number] PRN Administration Wheezing Amlodipine Besylate 10 mg 05/15/20 09:00 06/03/20 10:11 Amlodipine 10 Mg Tab PER TUBE 10 mg DAILY ESTER Administration Carvedilol 6.25 mg 05/27/20 21:00 06/03/20 10:11 Carvedilol 6.25 Mg Tab PER TUBE 6.25 mg BID ESTER Administration Clonidine 0.2 mg 05/27/20 21:00 06/03/20 10:10 Clonidine 0.2 Mg Tab PER TUBE 0.2 mg BID ESTER Administration Epoetin Selwyn-epbx 10,000 unit 05/28/20 18:00 06/01/20 17:50 Epoetin Selwyn-Epbx (Esrd) 10,000 Unit/Ml Vial IVP 10,000 unit MoWeFr ESTER Administration Insulin Glargine 5 units/ 0.05 mls @ 0 mls/hr 05/13/20 09:00 06/03/20 10:13 Miscellaneous Medication SC 0.05 mls QAM ESTER Administration Piperacillin Sod/Tazobactam 100 mls @ 200 mls/hr 05/28/20 14:00 06/03/20 15: 15 Sod 2.25 gm/ Sodium Chloride IVPB 100 mls Q8HR ESTER Administration Levetiracetam 500 mg/ Device 100 mls @ 200 mls/hr 06/01/20 14:00 06/03/20 15:15 IVPB 100 mls 0200,1400 ESTER Administration Insulin Human Regular 0 units 05/13/20 09:28 06/03/20 16:38 Insulin Regular 300 Units/3 Ml Vial SC 10 unit .MODERATE SLIDING SC PRN Administration Moderate Correctional Scale Labetalol HCl 20 mg 05/12/20 05:37 05/29/20 11:27 Labetalol Hcl 100 Mg/20 Ml Vial SLOW IVP 20 mg Q4H PRN Administration SBP >170 Mometasone Furoate/Formoterol Fumar 2 puff 05/09/20 18:30 06/03/20 05:45 Mometasone 200 Mcg/Formoterol 5 Mcg 120 Puff Inhaler INH 2 puff BID-RT ESTER Administration Ondansetron HCl 4 mg 05/03/20 17:50 05/23/20 16:00 Ondansetron Pf 4 Mg/2 Ml Vial IVP 4 mg Q6H PRN Administration Nausea/Vomiting Pantoprazole Sodium 40 mg 05/24/20 21:00 06/03/20 10:10 Pantoprazole 40 Mg Vial IVP 40 mg Q12HR ESTER Administration Prednisone 40 mg 05/31/20 08:00 06/03/20 10:11 Prednisone 20 Mg Tab PO 40 mg QAM-WM ESTER Administration Scopolamine 1.5 mg 05/22/20 15:15 06/03/20 15:15 Scopolamine 1.5 Mg/72 Hour Patch TOP 1.5 mg Q3D ESTER Administration Sodium Chloride 10 ml 05/24/20 10:31 05/31/20 09:23 Flush - Normal Saline 10 Ml Syringe IVF 10 ml PRN PRN Administration Saline Flush Tramadol HCl 50 mg 05/26/20 21:00 06/02/20 21:33 Tramadol Hcl 50 Mg Tab PER TUBE 50 mg HS ESTER Administration - Exam General Appearance: awake alert General - other findings: high fl O2 Eye: PERRL ENT: normocephalic atraumatic Neck: supple Heart: RRR Respiratory: CTAB, normal chest expansion Gastrointestinal: soft Neurological: cranial nerve grossly intact, no focal deficits Psychiatric: oriented to person Hosp A/P - Plan Pneumonia due to COVID-19 virus Code(s): U07.1 - COVID-19; J12.89 - OTHER VIRAL PNEUMONIA Status: Acute (2) Diabetes Code(s): E11.9 - TYPE 2 DIABETES MELLITUS WITHOUT COMPLICATIONS Status: Chronic Qualifiers: Diabetes mellitus type: type 2 Diabetes mellitus complication detail: with nephropathy 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 (3) Dyslipidemia Code(s): E78.5 - HYPERLIPIDEMIA, UNSPECIFIED Status: Chronic (4) HTN (hypertension) Code(s): I10 - ESSENTIAL (PRIMARY) HYPERTENSION Status: Chronic Qualifiers: Hypertension type: essential hypertension Qualified Code(s): I10 - Essential (primary) hypertension (5) Acute blood loss anemia Code(s): D62 - ACUTE POSTHEMORRHAGIC ANEMIA Status: Acute (6) DIC (disseminated intravascular coagulation) Code(s): D65 - DISSEMINATED INTRAVASCULAR COAGULATION Status: Acute (7) GI bleed Code(s): K92.2 - GASTROINTESTINAL HEMORRHAGE, UNSPECIFIED Status: Acute Qualifiers: GI bleed type/associated pathology: anorectal hemorrhage Qualified Code(s): K62.5 - Hemorrhage of anus and rectum (8) Hypokalemia Code(s): E87.6 - HYPOKALEMIA Status: Acute (9) Fever Code(s): R50.9 - FEVER, UNSPECIFIED Status: Acute - Plan * Acute respiratory failure with hypoxemia- due to COVID pneumonia- She now has a trach and PEG, and is off ventilator support with a trach collar * Fever- Continue Zosyn for Pseudomonas * * HTN- blood pressure is stable * DM- blood glucose is a bit labile- continue the current regimen and cover with SSI * Acute on chronic kidney injury- - dialysis as per Nephrology * Anemia- stable * Metabolic encephalopathy- not much improvment * EEG is consistent with moderate generalized nonspecific cerebral dysfunction. * DIC- due to COVID * Diarrhea- will check C. Diff * * dtr wants to know when she would be transferred to rehab - when her O2 reqts less.
[2020-06-03] MEDS: traMADol HCl 50 MG TAB PER TUBE SCH (21:20)
[2020-06-04] MEDS: levETIRAcetam in NS 500 MG in Premix Bag 1 BAG IVPB SCH (02:43)
[2020-06-04 05:55] LABS: PTT 37.1 sec (22.9-36.1)
[2020-06-04 05:56] LABS: Prothrombin Time 13.3 sec (12.0-14.7)
[2020-06-04 06:17] LABS: Band 3 % (5-11); Basophilic Stippling SLIGHT = 1-2 cells (100X) (None Seen); Hemoglobin 7.5 g/dL (12.0-16.0); Lymphocytes 9 % (21-51); MDiff Complete? YES; Macrocytosis MODERATE=16-30 cells (100X) (0-5/hpf); Mean Corpuscular HGB CONC 33.1 g/dL (32.0-36.0); Mean Corpuscular Volume 90.6 fL (78.0-98.0); Mean Platelet Volume 8.2 fL (7.4-10.4); Metamyelocyte 1 % (0-0); Monocytes 5 % (0-10); Neutrophil 82 % (42-75); Platelet Count 280 thou/uL (130-400); Platelet Morphology Comment Appears Adequate; Polychromasia SLIGHT = 2-3 cells (100X) (0-2/hpf); RBC Distribution Width 15.2 % (11.5-14.5); White Blood Cell (WBC) Count 13.5 thou/uL (4.8-10.8)
[2020-06-04 06:19] LABS: Anion Gap 21 mmol/L (10-20); BUN (Urea Nitrogen) 73 mg/dL (9.8-20.1); Calc. Creatinine Clearance 16 mL/min (70-130); Calcium 7.8 mg/dL (7.8-10.44); Carbon Dioxide 22 mmol/L (23-31); Chloride 97 mmol/L (98-107); Glucose 300 mg/dL (80-115); Potassium 3.6 mmol/L (3.5-5.1); Sodium 136 mmol/L (136-145)
[2020-06-04] MEDS: Piperacillin/Tazobactam 2.25 GM in Sodium Chloride 0.9% 100 ML IVPB SCH ×3 (06:24→20:57)
[2020-06-04] MEDS: Insulin Regular 300 UNITS/3 ML VIAL SC PRN ×4 (06:25→22:47)
--- NOTE | 2020-06-04 08:27 | PDOC.HOSPP ---
- Subjective Encounter Date: 06/04/20 Encounter Time: 08:26 Subjective: Ms. Reed was seen today in follow-up of COVID pneumonia, and encephalopathy. She is now out of the ICU. She is on a trach collar. She will open her eyes, and she smiled today. Shewill grimace, but she did not follow commands today. - Objective Vital Signs & Weight: Vital Signs (12 hours) Temp Pulse Resp BP Pulse Ox 06/04/20 05:11 99 06/04/20 03:02 98.5 F 66 22 H 142/66 H 99 06/04/20 00:24 99.4 F 100 Weight Admit Weight 186 lb 4.8 oz Weight 202 lb 9 oz Most Recent Monitor Data Heart Rate from ECG 64 NIBP 136/65 NIBP BP-Mean 88 Respiration from ECG 14 SpO2 95 I&O: 06/03/20 06/04/20 06/05/20 06:59 06:59 06:59 Intake Total 1160 710 100 Balance 1160 710 100 Result Diagrams: 06/04/20 05:12 06/04/20 05:12 Additional Labs: Accuchecks 06/04/20 06/03/20 06/03/20 03:02 21:34 16:31 POC Glucose 286 H 342 H 387 H Hospitalist ROS - Medication Medications: Active Medications Generic Name Dose Route Start Last Admin Trade Name Freq PRN Reason Stop Dose Admin Acetaminophen 650 mg 05/25/20 18:57 06/01/20 08:17 Acetaminophen 650 Mg/20.3 Ml Udcup PER TUBE 650 mg Q4H PRN Administration Fever > 101 Albuterol Sulfate 2 puff 05/05/20 03:59 05/05/20 07:40 Albuterol 200 Puff (6.7gm Inhaler) INH 2 puff [id number] PRN Administration Wheezing Amlodipine Besylate 10 mg 05/15/20 09:00 06/03/20 10:11 Amlodipine 10 Mg Tab PER TUBE 10 mg DAILY ESTER Administration Carvedilol 6.25 mg 05/27/20 21:00 06/03/20 21:20 Carvedilol 6.25 Mg Tab PER TUBE 6.25 mg BID ESTER Administration Clonidine 0.2 mg 05/27/20 21:00 06/03/20 21:19 Clonidine 0.2 Mg Tab PER TUBE 0.2 mg BID ESTER Administration Epoetin Selwyn-epbx 10,000 unit 05/28/20 18:00 06/01/20 17:50 Epoetin Selwyn-Epbx (Esrd) 10,000 Unit/Ml Vial IVP 10,000 unit MoWeFr ESTER Administration Piperacillin Sod/Tazobactam 100 mls @ 200 mls/hr 05/28/20 14:00 06/04/20 06:24 Sod 2.25 gm/ Sodium Chloride IVPB 06/05/20 07:00 100 mls Q8HR ESTER Administration Levetiracetam 500 mg/ Device 100 mls @ 200 mls/hr 06/01/20 14:00 06/04/20 02:43 IVPB 100 mls 0200,1400 ESTER Administration Insulin Human Regular 0 units 05/13/20 09:28 06/04/20 06:25 Insulin Regular 300 Units/3 Ml Vial SC 6 unit .MODERATE SLIDING SC PRN Administration Moderate Correctional Scale Labetalol HCl 20 mg 05/12/20 05:37 05/29/20 11:27 Labetalol Hcl 100 Mg/20 Ml Vial SLOW IVP 20 mg Q4H PRN Administration SBP >170 Mometasone Furoate/Formoterol Fumar 2 puff 05/09/20 18:30 06/03/20 21:23 Mometasone 200 Mcg/Formoterol 5 Mcg 120 Puff Inhaler INH 2 puff BID-RT ESTER Administration Ondansetron HCl 4 mg 05/03/20 17:50 05/23/20 16:00 Ondansetron Pf 4 Mg/2 Ml Vial IVP 4 mg Q6H PRN Administration Nausea/Vomiting Pantoprazole Sodium 40 mg 05/24/20 21:00 06/03/20 21:22 Pantoprazole 40 Mg Vial IVP 40 mg Q12HR ESTER Administration Prednisone 40 mg 05/31/20 08:00 06/03/20 10:11 Prednisone 20 Mg Tab PO 40 mg QAM-WM ESTER Administration Scopolamine 1.5 mg 05/22/20 15:15 06/03/20 15:15 Scopolamine 1.5 Mg/72 Hour Patch TOP 1.5 mg Q3D ESTER Administration Sodium Chloride 10 ml 05/24/20 10:31 06/03/20 21:22 Flush - Normal Saline 10 Ml Syringe IVF 10 ml PRN PRN Administration Saline Flush Tramadol HCl 50 mg 05/26/20 21:00 06/03/20 21:20 Tramadol Hcl 50 Mg Tab PER TUBE 50 mg HS ESTER Administration - Exam Eye: PERRL, anicteric sclera Heart: RRR, no murmur, no gallops, no rubs, normal peripheral pulses Respiratory: rales (at the bases and coarse breath sounds) Gastrointestinal: soft, non-distended, normal bowel sounds Extremities: no cyanosis, 1+ LE edema Hosp A/P (1) Pneumonia due to COVID-19 virus Code(s): U07.1 - COVID-19; J12.89 - OTHER VIRAL PNEUMONIA Status: Acute (2) Diabetes Code(s): E11.9 - TYPE 2 DIABETES MELLITUS WITHOUT COMPLICATIONS Status: Chronic Qualifiers: Diabetes mellitus type: type 2 Diabetes mellitus complication detail: with nephropathy 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 (3) Dyslipidemia Code(s): E78.5 - HYPERLIPIDEMIA, UNSPECIFIED Status: Chronic (4) HTN (hypertension) Code(s): I10 - ESSENTIAL (PRIMARY) HYPERTENSION Status: Chronic Qualifiers: Hypertension type: essential hypertension Qualified Code(s): I10 - Essential (primary) hypertension (5) Acute blood loss anemia Code(s): D62 - ACUTE POSTHEMORRHAGIC ANEMIA Status: Acute (6) DIC (disseminated intravascular coagulation) Code(s): D65 - DISSEMINATED INTRAVASCULAR COAGULATION Status: Acute (7) GI bleed Code(s): K92.2 - GASTROINTESTINAL HEMORRHAGE, UNSPECIFIED Status: Acute Qualifiers: GI bleed type/associated pathology: anorectal hemorrhage Qualified Code(s): K62.5 - Hemorrhage of anus and rectum (8) Hypokalemia Code(s): E87.6 - HYPOKALEMIA Status: Acute (9) Fever Code(s): R50.9 - FEVER, UNSPECIFIED Status: Acute (10) Seizure Code(s): R56.9 - UNSPECIFIED CONVULSIONS Status: Acute - Plan * Acute respiratory failure with hypoxemia- due to COVID pneumonia- She has bee n stable with trach collar * Fever due to Pseudomonas line sepsis- the central line was removed a week ago. She will complete a week of Zosyn today, and it can be discontinued after today * Seizure- continue Keppra, adn will change to via tube * HTN- blood pressure is stable * DM- blood glucose is a bit labile- continue the current regimen and cover with SSI * Acute on chronic kidney injury- stable- dialysis as per Nephrology * Anemia- H&H has been stable * Metabolic encephalopathy- not much improvment * DIC- due to COVID * Will need eventual LTAC placement
[2020-06-04] MEDS: levETIRAcetam 500 MG TAB PER TUBE SCH ×2 (08:54→20:51)
[2020-06-04] MEDS: Pantoprazole 40 MG GRANULES PACKET PER TUBE SCH (08:55)
[2020-06-04] MEDS: predniSONE 20 MG TAB PO SCH (08:55)
[2020-06-04] MEDS: cloNIDine 0.2 MG TAB PER TUBE SCH ×2 (08:55→20:51)
[2020-06-04] MEDS: Amlodipine 10 MG TAB PER TUBE SCH (08:55)
[2020-06-04] MEDS: Carvedilol 6.25 MG TAB PER TUBE SCH ×2 (08:55→20:51)
[2020-06-04] MEDS: Insulin Glargine 15 UNITS in Pre-Filled Syringe 1 EACH SC SCH (08:56)
[2020-06-04] MEDS: Mometasone 200 MCG/Formoterol 5 MCG 120 PUFF INHALER INH SCH ×2 (09:02→16:42)
[2020-06-04] MEDS ORDERED: predniSONE 20 MG TAB PO SCH (12:00)
--- NOTE | 2020-06-04 12:51 | PRG ---
DATE OF SERVICE: SUBJECTIVE: Genia Reed remains on high-flow, doing well being dialyzed. No respiratory distress. OBJECTIVE: VITAL SIGNS: Sats 100% on 40%, rate of 40. Temperature 98, pulse 64, blood pressure 130/80. CHEST: No wheezing, no crackles. CARDIAC: Normal S1, S2. ABDOMEN: No masses. IMPRESSION: Respiratory failure, renal failure, Hoskins positive pneumonia. PLAN: Decreasing prednisone to 20 a day. Hopefully, we can start switching over to nasal O2. Downsizing her oxygen requirements eventually. Trach in place. Job ID: [id number]
[2020-06-04] MEDS: EPOETIN ALFA-EPBX (ESRD) 10,000 UNIT/ML VIAL IVP SCH (16:41)
--- NOTE | 2020-06-04 18:49 | PRG ---
DATE OF SERVICE: 06/04/2020 SUBJECTIVE: A 70-year-old female, being seen for end-stage renal disease. The patient denies nausea, vomiting, or chest pain. OBJECTIVE: GENERAL: The patient is awake and alert. VITAL SIGNS: Afebrile, pulse 72, breathing at 16, blood pressure 156/79. HEENT: Head normocephalic and atraumatic. Eyes intact, no ulcers. Nose intact, no ulcers. Ears intact, no ulcers. NECK: Supple. No JVD. CHEST: Symmetrical and clear. CARDIOVASCULAR: Shows S1 and S2, no rub, no murmur. GASTROINTESTINAL: Abdomen is soft, bowel sounds positive. EXTREMITIES: Show no edema or ulcers. SKIN: Shows no rash or petechiae. MUSCULOSKELETAL: Shows no joint swelling or stiffness. GENITOURINARY: Shows no Do or CVA tenderness. NEUROLOGIC: Motor intact. Cranial nerves intact. LABORATORY DATA: Reviewed. ASSESSMENT AND PLAN: 1. Chronic kidney disease, stage 6. Plan dialysis as scheduled. 2. Hypertension, stable. 3. Anemia, recommend transfusion. 4. Medication based on GFR appropriate. Job ID: [id number]
[2020-06-04] MEDS: traMADol HCl 50 MG TAB PER TUBE SCH (20:52)
[2020-06-05 05:14] LABS: PTT 36.3 sec (22.9-36.1); Prothrombin Time 13.7 sec (12.0-14.7)
[2020-06-05] MEDS: Piperacillin/Tazobactam 2.25 GM in Sodium Chloride 0.9% 100 ML IVPB SCH (05:20)
[2020-06-05 05:34] LABS: Band 1 % (5-11); Eosinophils 1 % (0-10); Hemoglobin 7.8 g/dL (12.0-16.0); Hypochromia SLIGHT = 6-15 cells (100X) (0-5/hpf); Lymphocytes 17 % (21-51); MDiff Complete? YES; Mean Corpuscular HGB CONC 33.4 g/dL (32.0-36.0); Mean Corpuscular Hemoglobin 30.2 pg (27.0-31.0); Mean Corpuscular Volume 90.4 fL (78.0-98.0); Mean Platelet Volume 7.9 fL (7.4-10.4); Monocytes 2 % (0-10); Neutrophil 79 % (42-75); Nucleated RBC 4 % (0); Platelet Count 279 thou/uL (130-400); Platelet Morphology Comment Appears Adequate; Polychromasia SLIGHT = 2-3 cells (100X) (0-2/hpf); RBC Distribution Width 15.4 % (11.5-14.5); Red Blood Cell (RBC) Count 2.59 mill/uL (4.20-5.40); White Blood Cell (WBC) Count 20.5 thou/uL (4.8-10.8)
[2020-06-05 05:36] LABS: Anion Gap 16 mmol/L (10-20); BUN (Urea Nitrogen) 47 mg/dL (9.8-20.1); Calc. Creatinine Clearance 25 mL/min (70-130); Carbon Dioxide 26 mmol/L (23-31); Chloride 96 mmol/L (98-107); Glucose 167 mg/dL (80-115); Potassium 3.4 mmol/L (3.5-5.1); Sodium 135 mmol/L (136-145)
[2020-06-05] MEDS: Mometasone 200 MCG/Formoterol 5 MCG 120 PUFF INHALER INH SCH ×2 (06:00→17:49)
--- NOTE | 2020-06-05 07:51 | RAD ---
Chest one view HISTORY: Dyspnea. COMPARISON: 05/29/2020. FINDINGS: Cardiac silhouette is magnified and upper limits of normal in size. Pulmonary vasculature r emains engorged. Bilateral perihilar and bibasilar infiltrates are similar in appearance to the prior exam. Blunting of each costophrenic angle persists. Mediastinum is midline. Lines and tubes unchanged in position. No evidence of pneumothorax. IMPRESSION : Multifocal infiltrates, pleural fluid, and other findings are stable.
[2020-06-05] MEDS: Insulin Glargine 15 UNITS in Pre-Filled Syringe 1 EACH SC SCH (08:40)
[2020-06-05] MEDS: Amlodipine 10 MG TAB PER TUBE SCH (08:42)
[2020-06-05] MEDS: levETIRAcetam 500 MG TAB PER TUBE SCH ×2 (08:42→20:05)
[2020-06-05] MEDS: Carvedilol 6.25 MG TAB PER TUBE SCH ×2 (08:42→20:05)
[2020-06-05] MEDS: cloNIDine 0.2 MG TAB PER TUBE SCH ×2 (08:42→20:06)
[2020-06-05] MEDS: Pantoprazole 40 MG GRANULES PACKET PER TUBE SCH (08:42)
[2020-06-05] MEDS: predniSONE 20 MG TAB PO SCH (08:43)
--- NOTE | 2020-06-05 10:41 | PDOC.HOSPP ---
- Subjective Encounter Date: 06/05/20 Encounter Time: 10:39 Subjective: patient seen on f/u covid 19 pneumonia, currently patient is non verbal, is not following commmands, on high flow 02 with trach. chanteter stated this morning had to increase 02 supplementation due to worsening sats in the 80s. - Objective Vital Signs & Weight: Vital Signs (12 hours) Temp Pulse Resp BP BP BP Pulse Ox 06/05/20 08:42 79 164/71 H 06/05/20 08:00 99.9 F H 75 20 164/71 H 164/71 H 90 L 06/05/20 06:00 79 20 06/05/20 04:00 100.4 F H 68 18 160/72 H 93 L 06/05/20 00:00 98.7 F 70 20 146/67 H 93 L Weight Admit Weight 186 lb 4.8 oz Weight 200 lb 14.4 oz Most Recent Monitor Data Heart Rate from ECG 64 NIBP 136/65 NIBP BP-Mean 88 Respiration from ECG 14 SpO2 95 I&O: 06/04/20 06/05/20 06/06/20 06:59 06:59 06:59 Intake Total 710 480 30 Balance 710 480 30 Result Diagrams: 06/05/20 04:50 06/05/20 04:50 Additional Labs: Accuchecks 06/04/20 06/04/20 06/04/20 22:26 17:17 12:44 POC Glucose 220 H 277 H 196 H Hospitalist ROS - Review of Systems ROS unobtainable: due to mental status - Medication Medications: Active Medications Generic Name Dose Route Start Last Admin Trade Name Angelq PRN Reason Stop Dose Admin Acetaminophen 650 mg 05/25/20 18:57 06/01/20 08:17 Acetaminophen 650 Mg/20.3 Ml Udcup PER TUBE 650 mg Q4H PRN Administration Fever > 101 Albuterol Sulfate 2 puff 05/05/20 03:59 05/05/20 07:40 Albuterol 200 Puff (6.7gm Inhaler) INH 2 puff [id number] PRN Administration Wheezing Amlodipine Besylate 10 mg 05/15/20 09:00 06/05/20 08:42 Amlodipine 10 Mg Tab PER TUBE 10 mg DAILY ESTER Administration Carvedilol 6.25 mg 05/27/20 21:00 06/05/20 08:42 Carvedilol 6.25 Mg Tab PER TUBE 6.25 mg BID ESTER Administration Clonidine 0.2 mg 05/27/20 21:00 06/05/20 08:42 Clonidine 0.2 Mg Tab PER TUBE 0.2 mg BID ESTER Administration Epoetin Selwyn-epbx 10,000 unit 05/28/20 18:00 06/04/20 16:41 Epoetin Selwyn-Epbx (Esrd) 10,000 Unit/Ml Vial IVP 10,000 unit MoWeFr ESTER Administration Insulin Glargine 15 units/ 0.15 mls @ 0 mls/hr 06/04/20 09:00 06/05/20 08:40 Miscellaneous Medication SC 0.15 mls QAM ESTER Administration Insulin Human Regular 0 units 05/13/20 09:28 06/04/20 22:47 Insulin Regular 300 Units/3 Ml Vial SC 4 unit .MODERATE SLIDING SC PRN Administration Moderate Correctional Scale Labetalol HCl 20 mg 05/12/20 05:37 05/29/20 11:27 Labetalol Hcl 100 Mg/20 Ml Vial SLOW IVP 20 mg Q4H PRN Administration SBP >170 Levetiracetam 500 mg 06/04/20 09:00 06/05/20 08:42 Levetiracetam 500 Mg Tab PER TUBE 500 mg BID ESTER Administration Mometasone Furoate/Formoterol Fumar 2 puff 05/09/20 18:30 06/05/20 06:00 Mometasone 200 Mcg/Formoterol 5 Mcg 120 Puff Inhaler INH 2 puff BID-RT ESTER Administration Ondansetron HCl 4 mg 05/03/20 17:50 05/23/20 16:00 Ondansetron Pf 4 Mg/2 Ml Vial IVP 4 mg Q6H PRN Administration Nausea/Vomiting Pantoprazole Sodium 40 mg 06/04/20 09:00 06/05/20 08:42 Pantoprazole 40 Mg Granules Packet PER TUBE 40 mg DAILY ESTER Administration Prednisone 20 mg 06/05/20 08:00 06/05/20 08:43 Prednisone 20 Mg Tab PO 20 mg QAM-WM ESTER Administration Scopolamine 1.5 mg 05/22/20 15:15 06/03/20 15:15 Scopolamine 1.5 Mg/72 Hour Patch TOP 1.5 mg Q3D ESTER Administration Sodium Chloride 10 ml 05/24/20 10:31 06/03/20 21:22 Flush - Normal Saline 10 Ml Syringe IVF 10 ml PRN PRN Administration Saline Flush Tramadol HCl 50 mg 05/26/20 21:00 06/04/20 20:52 Tramadol Hcl 50 Mg Tab PER TUBE 50 mg HS ESTER Administration Hospitalist Exam Vitals: Vital Signs (12 hours) Temp Pulse Resp BP BP BP Pulse Ox 06/05/20 08:42 79 164/71 H 06/05/20 08:00 99.9 F H 75 20 164/71 H 164/71 H 90 L 06/05/20 06:00 79 20 06/05/20 04:00 100.4 F H 68 18 160/72 H 93 L 06/05/20 00:00 98.7 F 70 20 146/67 H 93 L Weight Admit Weight 186 lb 4.8 oz Weight 200 lb 14.4 oz Most Recent Monitor Data Heart Rate from ECG 64 NIBP 136/65 NIBP BP-Mean 88 Respiration from ECG 14 SpO2 95 General Appearance: NAD, awake alert Eye: PERRL, anicteric sclera ENT: normocephalic atraumatic, no oropharyngeal lesions Neck: supple, symmetric, no JVD, no thyromegaly Heart: RRR, no murmur, no gallops Respiratory: CTAB, no wheezes, no rales, no ronchi Gastrointestinal: soft, non-tender, non-distended, normal bowel sounds Extremities: no cyanosis, no clubbing, no edema Skin: normal turgor, no lesions, no rashes Neurological: cranial nerve grossly intact, normal sensation to touch Musculoskeletal: normal tone Psychiatric: not oriented Hosp A/P (1) Pneumonia due to COVID-19 virus Code(s): U07.1 - COVID-19; J12.89 - OTHER VIRAL PNEUMONIA Status: Acute (2) AMS (altered mental status) Code(s): R41.82 - ALTERED MENTAL STATUS, UNSPECIFIED Status: Acute (3) DIC (disseminated intravascular coagulation) Code(s): D65 - DISSEMINATED INTRAVASCULAR COAGULATION Status: Acute (4) Physical deconditioning Code(s): R53.81 - OTHER MALAISE Status: Acute (5) Seizure Code(s): R56.9 - UNSPECIFIED CONVULSIONS Status: Acute (6) Acute renal failure superimposed on stage 4 chronic kidney disease Code(s): N17.9 - ACUTE KIDNEY FAILURE, UNSPECIFIED; N18.4 - CHRONIC KIDNEY DISEASE, STAGE 4 (SEVERE) Status: Acute (7) Diabetes Code(s): E11.9 - TYPE 2 DIABETES MELLITUS WITHOUT COMPLICATIONS Status: Chronic Qualifiers: Diabetes mellitus type: type 2 Diabetes mellitus complication detail: with nephropathy 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 - postive blood cultures - on zosyn Seizure -continue Keppra, HTN - blood pressure is stable DM - acc + ss Acute on chronic kidney injury - h/d as per nephroloist Anemia - H&H has been stable Metabolic encephalopathy - not much improvment DIC - due to COVID trying to transfer to [facility]
--- NOTE | 2020-06-05 11:30 | PRG ---
DATE OF SERVICE: OBJECTIVE: VITAL SIGNS: Temperature 99, blood pressure 160/70, sats on trach collar 90%, respiratory rate 18. CHEST: Rhonchi, crackles. CARDIAC: Normal S1. ABDOMEN: No masses. LABORATORY DATA: White count 20,000, hemoglobin and hematocrit is 7 and 23, platelet count . X-ray shows small pleural effusion, bilateral infiltrates. ASSESSMENT: 1. Respiratory failure. 2. Renal failure, on dialysis. 3. Status post trach and PEG. 4. Encephalopathy. PLAN: If fever persists and she has ongoing worsening leukocytosis, we may have to restart empiric antibiotics. Otherwise, trying to get a placement for her. Job ID: [id number]
--- NOTE | 2020-06-05 12:19 | PRG ---
DATE OF SERVICE: 06/05/2020 SUBJECTIVE: This is a 70-year-old female, being seen for acute kidney injury. The patient denies any nausea, vomiting, or chest pain. OBJECTIVE: GENERAL: The patient is awake and alert. VITAL SIGNS: Afebrile, pulse 68, breathing at 16, and blood pressure 160/75. HEENT: Head normocephalic and atraumatic. Eyes intact, no ulcers. Nose intact, no ulcers. Ears intact, no ulcers. Neck: Supple. No JVD. Chest: Symmetrical and clear. Cardiovascular: Shows S1 and S2, no rub, no murmur. Gastrointestinal: Abdomen is soft, bowel sounds positive. Extremities: Show no edema or ulcers. Skin: Shows no rash or petechiae. Musculoskeletal: Shows no joint swelling or stiffness. Genitourinary: Shows no Do or CVA tenderness. Neurologic: The patient is resting. LABORATORY DATA: Show hemoglobin 7.8, potassium 3.4, creatinine 3.03. ASSESSMENT: Stage 6 chronic kidney disease, plan dialysis as scheduled. Hypertension, stable. Anemia, would recommend transfusion. Medication based on GFR appropriate. Job ID: [id number]
[2020-06-05] MEDS: Insulin Regular 300 UNITS/3 ML VIAL SC PRN ×2 (12:38→16:30)
[2020-06-05] MEDS: traMADol HCl 50 MG TAB PER TUBE SCH (20:05)
[2020-06-06 05:09] LABS: INR-International Normal Ratio 1.1; Prothrombin Time 14.1 sec (12.0-14.7)
[2020-06-06 05:30] LABS: Anion Gap 17 mmol/L (10-20); BUN (Urea Nitrogen) 63 mg/dL (9.8-20.1); Calc. Creatinine Clearance 18 mL/min (70-130); Carbon Dioxide 26 mmol/L (23-31); Chloride 94 mmol/L (98-107); Glucose 296 mg/dL (80-115); Potassium 3.3 mmol/L (3.5-5.1); Sodium 134 mmol/L (136-145)
[2020-06-06 05:42] LABS: Band 1 % (5-11); Eosinophils 1 % (0-10); Hemoglobin 7.7 g/dL (12.0-16.0); Lymphocytes 5 % (21-51); MDiff Complete? YES; Mean Corpuscular HGB CONC 32.8 g/dL (32.0-36.0); Mean Corpuscular Volume 91.5 fL (78.0-98.0); Mean Platelet Volume 7.8 fL (7.4-10.4); Monocytes 5 % (0-10); Neutrophil 88 % (42-75); Platelet Count 291 thou/uL (130-400); Platelet Morphology Comment Appears Adequate; RBC Distribution Width 16.5 % (11.5-14.5); Red Blood Cell (RBC) Count 2.56 mill/uL (4.20-5.40)
[2020-06-06] MEDS: Mometasone 200 MCG/Formoterol 5 MCG 120 PUFF INHALER INH SCH ×2 (06:05→16:58)
[2020-06-06] MEDS: Insulin Regular 300 UNITS/3 ML VIAL SC PRN ×3 (06:05→18:38)
[2020-06-06] MEDS: Insulin Glargine 15 UNITS in Pre-Filled Syringe 1 EACH SC SCH (09:02)
--- NOTE | 2020-06-06 09:41 | PRG ---
DATE OF SERVICE: 06/06/2020 SUBJECTIVE: A 70-year-old female, being seen for end-stage renal disease. The patient denies any nausea or any complaints. PHYSICAL EXAMINATION: GENERAL: The patient is resting. VITAL SIGNS: Afebrile, pulse 69, breathing at 16, blood pressure 136/64. HEENT: Head normocephalic and atraumatic. Eyes intact, no ulcers. Nose intact, no ulcers. Ears intact, no ulcers. NECK: Supple. No JVD. CHEST: Symmetrical and clear. CARDIOVASCULAR: Shows S1 and S2, no rub, no murmur. GASTROINTESTINAL: Abdomen is soft, bowel sounds positive. EXTREMITIES: Show no edema or ulcers. SKIN: Shows no rash or petechiae. MUSCULOSKELETAL: Shows no joint swelling or stiffness. GENITOURINARY: Shows no Do or CVA tenderness. NEUROLOGIC: Motor intact. Cranial nerves intact. LABORATORY DATA: Hemoglobin 7.7. Potassium 3.3. ASSESSMENT AND PLAN: 1. Stage 6 chronic kidney disease, plan dialysis with a 4K bath. 2. Anemia. We would recommend 2 units of transfusion with dialysis. 3. Hypertension, stable. Medications based on GFR appropriate. Job ID: [id number]
--- NOTE | 2020-06-06 10:29 | PRG ---
DATE OF SERVICE: 06/06/2020 SUBJECTIVE: Day #36 in the hospital . She is being dialyzed. OBJECTIVE: VITAL SIGNS: Temperature 98, pulse 69, respirations 19, CHEST: No wheezing. No crackles. CARDIAC: Normal S1, S2. No gallops. ABDOMEN: No masses. ASSESSMENT: Chronic renal failure, status post GI bleed, status post respiratory failure, status post lim positive pneumonia, encephalopathy, much improved. PLAN: She can probably be transferred to LT[facility]. I will slowly decrease the steroids. Pulmonary is going to follow at a distance. Call if needed. Job ID: [id number]
[2020-06-06] MEDS: EPOETIN ALFA-EPBX (ESRD) 10,000 UNIT/ML VIAL IVP SCH (12:19)
[2020-06-06] MEDS: predniSONE 20 MG TAB PO SCH (15:31)
[2020-06-06] MEDS: cloNIDine 0.2 MG TAB PER TUBE SCH ×2 (15:31→19:56)
[2020-06-06] MEDS: Amlodipine 10 MG TAB PER TUBE SCH (15:31)
[2020-06-06] MEDS: Carvedilol 6.25 MG TAB PER TUBE SCH ×2 (15:32→19:57)
[2020-06-06] MEDS: levETIRAcetam 500 MG TAB PER TUBE SCH ×2 (15:32→19:57)
[2020-06-06] MEDS: Pantoprazole 40 MG GRANULES PACKET PER TUBE SCH (15:32)
[2020-06-06] MEDS: Acetaminophen 650 MG/20.3 ML UDCUP PER TUBE PRN (16:56)
--- NOTE | 2020-06-06 18:00 | PDOC.HOSPP ---
- Subjective Encounter Date: 06/06/20 Encounter Time: 17:59 Subjective: pt seen on f/u for covid 19 pneumonia, bacteremia kong on h/d and encephalopathy. patient is non verbal currently and not oriented, is receiving h/d and tolerating well - Objective Vital Signs & Weight: Vital Signs (12 hours) Temp Pulse Resp BP BP Pulse Ox 06/06/20 16:56 101.3 F H 06/06/20 16:00 100.3 F H 75 24 H 175/77 H 91 L 06/06/20 15:32 164/71 H 06/06/20 15:31 69 164/71 H 06/06/20 12:10 99.6 F 69 20 124/65 99 06/06/20 08:15 99.2 F 69 19 136/65 99 Weight Admit Weight 186 lb 4.8 oz Weight 202 lb 6.4 oz Most Recent Monitor Data Heart Rate from ECG 64 NIBP 136/65 NIBP BP-Mean 88 Respiration from ECG 14 SpO2 95 I&O: 06/05/20 06/06/20 06/07/20 06:59 06:59 06:59 Intake Total 480 1000 90 Balance 480 1000 90 Result Diagrams: 06/06/20 04:43 06/06/20 04:43 Additional Labs: Accuchecks 06/06/20 06/06/20 06/06/20 12:30 05:47 00:19 POC Glucose 208 H 279 H 260 H Hospitalist ROS - Review of Systems ROS unobtainable: due to mental status - Medication Medications: Active Medications Generic Name Dose Route Start Last Admin Trade Name Freq PRN Reason Stop Dose Admin Acetaminophen 650 mg 05/25/20 18:57 06/06/20 16:56 Acetaminophen 650 Mg/20.3 Ml Udcup PER TUBE 650 mg Q4H PRN Administration Fever > 101 Albuterol Sulfate 2 puff 05/05/20 03:59 05/05/20 07:40 Albuterol 200 Puff (6.7gm Inhaler) INH 2 puff [id number] PRN Administration Wheezing Amlodipine Besylate 10 mg 05/15/20 09:00 06/06/20 15:31 Amlodipine 10 Mg Tab PER TUBE 10 mg DAILY ESTER Administration Carvedilol 6.25 mg 05/27/20 21:00 06/06/20 15:32 Carvedilol 6.25 Mg Tab PER TUBE 6.25 mg BID ESTER Administration Clonidine 0.2 mg 05/27/20 21:00 06/06/20 15:31 Clonidine 0.2 Mg Tab PER TUBE 0.2 mg BID ESTER Administration Epoetin Selwyn-epbx 10,000 unit 05/28/20 18:00 06/06/20 12:19 Epoetin Selwyn-Epbx (Esrd) 10,000 Unit/Ml Vial IVP 10,000 unit MoWeFr ESTER Administration Insulin Glargine 15 units/ 0.15 mls @ 0 mls/hr 06/04/20 09:00 06/06/20 09:02 Miscellaneous Medication SC 0.15 mls QAM ESTER Administration Insulin Human Regular 0 units 05/13/20 09:28 06/06/20 13:01 Insulin Regular 300 Units/3 Ml Vial SC 4 unit .MODERATE SLIDING SC PRN Administration Moderate Correctional Scale Labetalol HCl 20 mg 05/12/20 05:37 05/29/20 11:27 Labetalol Hcl 100 Mg/20 Ml Vial SLOW IVP 20 mg Q4H PRN Administration SBP >170 Levetiracetam 500 mg 06/04/20 09:00 06/06/20 15:32 Levetiracetam 500 Mg Tab PER TUBE 500 mg BID ESTER Administration Mometasone Furoate/Formoterol Fumar 2 puff 05/09/20 18:30 06/06/20 16:58 Mometasone 200 Mcg/Formoterol 5 Mcg 120 Puff Inhaler INH 2 puff BID-RT ESTER Administration Ondansetron HCl 4 mg 05/03/20 17:50 05/23/20 16:00 Ondansetron Pf 4 Mg/2 Ml Vial IVP 4 mg Q6H PRN Administration Nausea/Vomiting Pantoprazole Sodium 40 mg 06/04/20 09:00 06/06/20 15:32 Pantoprazole 40 Mg Granules Packet PER TUBE 40 mg DAILY ESTER Administration Prednisone 20 mg 06/05/20 08:00 06/06/20 15:31 Prednisone 20 Mg Tab PO 20 mg QAM-WM ESTER Administration Sodium Chloride 10 ml 05/24/20 10:31 06/03/20 21:22 Flush - Normal Saline 10 Ml Syringe IVF 10 ml PRN PRN Administration Saline Flush Hospitalist Exam Vitals: Vital Signs (12 hours) Temp Pulse Resp BP BP Pulse Ox 06/06/20 16:56 101.3 F H 06/06/20 16:00 100.3 F H 75 24 H 175/77 H 91 L 06/06/20 15:32 164/71 H 06/06/20 15:31 69 164/71 H 06/06/20 12:10 99.6 F 69 20 124/65 99 06/06/20 08:15 99.2 F 69 19 136/65 99 Weight Admit Weight 186 lb 4.8 oz Weight 202 lb 6.4 oz Most Recent Monitor Data Heart Rate from ECG 64 NIBP 136/65 NIBP BP-Mean 88 Respiration from ECG 14 SpO2 95 General Appearance: NAD, awake alert Eye: PERRL, anicteric sclera ENT: normocephalic atraumatic, no oropharyngeal lesions Neck: supple, symmetric, no JVD Heart: RRR, no murmur, no gallops Respiratory: CTAB, no wheezes, no rales Gastrointestinal: soft, non-tender, non-distended Extremities: no cyanosis, no clubbing, no edema Skin: normal turgor, no lesions, no rashes Neurological: cranial nerve grossly intact Musculoskeletal: normal tone, no muscle wasting Psychiatric: not oriented Hosp A/P (1) Pneumonia due to COVID-19 virus Code(s): U07.1 - COVID-19; J12.89 - OTHER VIRAL PNEUMONIA Status: Acute (2) AMS (altered mental status) Code(s): R41.82 - ALTERED MENTAL STATUS, UNSPECIFIED Status: Acute (3) DIC (disseminated intravascular coagulation) Code(s): D65 - DISSEMINATED INTRAVASCULAR COAGULATION Status: Acute (4) Physical deconditioning Code(s): R53.81 - OTHER MALAISE Status: Acute (5) Seizure Code(s): R56.9 - UNSPECIFIED CONVULSIONS Status: Acute (6) Acute renal failure superimposed on stage 4 chronic kidney disease Code(s): N17.9 - ACUTE KIDNEY FAILURE, UNSPECIFIED; N18.4 - CHRONIC KIDNEY DISEASE, STAGE 4 (SEVERE) Status: Acute (7) Diabetes Code(s): E11.9 - TYPE 2 DIABETES MELLITUS WITHOUT COMPLICATIONS Status: Chronic Qualifiers: Diabetes mellitus type: type 2 Diabetes mellitus complication detail: with nephropathy 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 - postive blood cultures - ended zosyn tx Seizure -continue Keppra, HTN - blood pressure is stable DM - acc + ss Acute on chronic kidney injury - h/d as per nephroloist Anemia - H&H has been stable Metabolic encephalopathy - not much improvment DIC - due to COVID [facility]ACH transfer was approved, pending availability of note yesterday it was noted increased leukocytosis and some low grade fevers. central line was removed and sent for culture as well as blood cultures x2. since then patient has remain afebrile and leukocytosis is decreasing. have low threshold to restart abx
[2020-06-07 05:21] LABS: Anion Gap 17 mmol/L (10-20); BUN (Urea Nitrogen) 46 mg/dL (9.8-20.1); Calc. Creatinine Clearance 21 mL/min (70-130); Carbon Dioxide 27 mmol/L (23-31); Chloride 97 mmol/L (98-107); Glucose 305 mg/dL (80-115); Potassium 3.6 mmol/L (3.5-5.1); Sodium 137 mmol/L (136-145)
[2020-06-07 05:24] LABS: Hypochromia SLIGHT = 6-15 cells (100X) (0-5/hpf); Lymphocytes 12 % (21-51); MDiff Complete? YES; Mean Corpuscular HGB CONC 32.6 g/dL (32.0-36.0); Mean Corpuscular Hemoglobin 29.7 pg (27.0-31.0); Mean Corpuscular Volume 91.3 fL (78.0-98.0); Monocytes 6 % (0-10); Neutrophil 82 % (42-75); Platelet Count 261 thou/uL (130-400); Platelet Morphology Comment Appears Adequate; RBC Distribution Width 15.8 % (11.5-14.5); Red Blood Cell (RBC) Count 3.04 mill/uL (4.20-5.40); White Blood Cell (WBC) Count 20.8 thou/uL (4.8-10.8)
[2020-06-07 05:26] LABS: PTT 34.8 sec (22.9-36.1)
[2020-06-07 05:27] LABS: Prothrombin Time 13.8 sec (12.0-14.7)
[2020-06-07] MEDS: Insulin Regular 300 UNITS/3 ML VIAL SC PRN ×3 (06:08→19:25)
[2020-06-07] MEDS: Mometasone 200 MCG/Formoterol 5 MCG 120 PUFF INHALER INH SCH ×2 (06:08→17:31)
[2020-06-07] MEDS: Carvedilol 6.25 MG TAB PER TUBE SCH ×2 (08:17→20:24)
[2020-06-07] MEDS: Amlodipine 10 MG TAB PER TUBE SCH (08:17)
[2020-06-07] MEDS: predniSONE 20 MG TAB PO SCH (08:17)
[2020-06-07] MEDS: cloNIDine 0.2 MG TAB PER TUBE SCH ×2 (08:17→20:25)
[2020-06-07] MEDS: levETIRAcetam 500 MG TAB PER TUBE SCH ×2 (08:17→20:24)
[2020-06-07] MEDS: Pantoprazole 40 MG GRANULES PACKET PER TUBE SCH (08:17)
[2020-06-07] MEDS: Insulin Glargine 15 UNITS in Pre-Filled Syringe 1 EACH SC SCH ×2 (08:20→08:21)
[2020-06-07] MEDS ORDERED: Meropenem 1 GM in Sodium Chloride 0.9% 100 ML IVPB SCH (11:00)
[2020-06-07] MEDS: Acetaminophen 650 MG/20.3 ML UDCUP PER TUBE PRN (11:43)
[2020-06-07] MEDS: MEROPENEM 1 GM/50 ML 1 GM in Premix Bag 1 BAG IVPB SCH ×2 (11:44→23:22)
--- NOTE | 2020-06-07 14:55 | PRG ---
DATE OF SERVICE: 06/07/2020 SUBJECTIVE: A 70-year-old female, being seen for end-stage renal disease. OBJECTIVE: GENERAL: The patient is resting. VITAL SIGNS: Temperature 101, pulse 65, breathing 16, blood pressure 153/70. HEAD: Showed normocephalic. NECK: Supple. No JVD. CHEST: Symmetrical. DIAGNOSTIC STUDIES: Labs show hemoglobin 9. Creatinine 3.6. ASSESSMENT AND PLAN: 1. Chronic kidney disease, stage 6. Plan dialysis. 2. Anemia, stable. Medication based on GFR appropriate. Overall prognosis is guarded. Job ID: [id number]
--- NOTE | 2020-06-07 17:38 | PDOC.HOSPP ---
- Subjective Encounter Date: 06/07/20 Encounter Time: 17:31 Subjective: pt nonverbal - Objective Vital Signs & Weight: Vital Signs (12 hours) Temp Pulse Pulse Resp BP BP BP 06/07/20 15:39 98.3 F 65 28 H 149/67 H 06/07/20 15:25 68 149/67 H 06/07/20 11:43 101.3 F H 06/07/20 11:36 100.3 F H 65 32 H 159/73 H 06/07/20 08:20 98.9 F 73 28 H 153/70 H 06/07/20 08:17 75 164/71 H Pulse Ox Pulse Ox 06/07/20 15:39 100 06/07/20 15:25 99 06/07/20 11:43 06/07/20 11:36 99 06/07/20 08:20 95 06/07/20 08:17 Weight Admit Weight 186 lb 4.8 oz Weight 199 lb Most Recent Monitor Data Heart Rate from ECG 64 NIBP 136/65 NIBP BP-Mean 88 Respiration from ECG 14 SpO2 95 I&O: 06/06/20 06/07/20 06/08/20 06:59 06:59 06:59 Intake Total 1000 710 90 Balance 1000 710 90 Result Diagrams: 06/09/20 04:31 06/09/20 04:30 Additional Labs: Accuchecks 06/07/20 06/07/20 06/06/20 11:35 05:43 23:22 POC Glucose 241 H 318 H 217 H 06/06/20 18:33 POC Glucose 234 H Hospitalist ROS - Review of Systems Other: unable to obtain - Medication Medications: Active Medications Generic Name Dose Route Start Last Admin Trade Name Freq PRN Reason Stop Dose Admin Acetaminophen 650 mg 05/25/20 18:57 06/07/20 11:43 Acetaminophen 650 Mg/20.3 Ml Udcup PER TUBE 650 mg Q4H PRN Administration Fever > 101 Albuterol Sulfate 2 puff 05/05/20 03:59 05/05/20 07:40 Albuterol 200 Puff (6.7gm Inhaler) INH 2 puff [id number] PRN Administration Wheezing Amlodipine Besylate 10 mg 05/15/20 09:00 06/07/20 08:17 Amlodipine 10 Mg Tab PER TUBE 10 mg DAILY ESTER Administration Carvedilol 6.25 mg 05/27/20 21:00 06/07/20 08:17 Carvedilol 6.25 Mg Tab PER TUBE 6.25 mg BID ESTER Administration Clonidine 0.2 mg 05/27/20 21:00 06/07/20 08:17 Clonidine 0.2 Mg Tab PER TUBE 0.2 mg BID ESTER Administration Epoetin Selwyn-epbx 10,000 unit 05/28/20 18:00 06/06/20 12:19 Epoetin Selwyn-Epbx (Esrd) 10,000 Unit/Ml Vial IVP 10,000 unit MoWeFr ESTER Administration Insulin Glargine 15 units/ 0.15 mls @ 0 mls/hr 06/04/20 09:00 06/07/20 08:21 Miscellaneous Medication SC 0.15 mls QAM ESTER Administration Meropenem 1 gm/ Device 50 mls @ 100 mls/hr 06/07/20 11:00 06/07/20 11:44 IVPB 50 mls 1100,2300 ESTER Administration Insulin Human Regular 0 units 05/13/20 09:28 06/07/20 11:45 Insulin Regular 300 Units/3 Ml Vial SC 4 unit .MODERATE SLIDING SC PRN Administration Moderate Correctional Scale Labetalol HCl 20 mg 05/12/20 05:37 05/29/20 11:27 Labetalol Hcl 100 Mg/20 Ml Vial SLOW IVP 20 mg Q4H PRN Administration SBP >170 Levetiracetam 500 mg 06/04/20 09:00 06/07/20 08:17 Levetiracetam 500 Mg Tab PER TUBE 500 mg BID ESTER Administration Mometasone Furoate/Formoterol Fumar 2 puff 05/09/20 18:30 06/07/20 06:08 Mometasone 200 Mcg/Formoterol 5 Mcg 120 Puff Inhaler INH 2 puff BID-RT ESTER Administration Ondansetron HCl 4 mg 05/03/20 17:50 05/23/20 16:00 Ondansetron Pf 4 Mg/2 Ml Vial IVP 4 mg Q6H PRN Administration Nausea/Vomiting Pantoprazole Sodium 40 mg 06/04/20 09:00 06/07/20 08:17 Pantoprazole 40 Mg Granules Packet PER TUBE 40 mg DAILY ESTER Administration Prednisone 20 mg 06/05/20 08:00 06/07/20 08:17 Prednisone 20 Mg Tab PO 20 mg QAM-WM ESTER Administration Sodium Chloride 10 ml 05/24/20 10:31 06/06/20 19:57 Flush - Normal Saline 10 Ml Syringe IVF 10 ml PRN PRN Administration Saline Flush Hospitalist Exam Vitals: Vital Signs (12 hours) Temp Pulse Pulse Resp BP BP BP 06/07/20 15:39 98.3 F 65 28 H 149/67 H 06/07/20 15:25 68 149/67 H 06/07/20 11:43 101.3 F H 06/07/20 11:36 100.3 F H 65 32 H 159/73 H 06/07/20 08:20 98.9 F 73 28 H 153/70 H 06/07/20 08:17 75 164/71 H Pulse Ox Pulse Ox 06/07/20 15:39 100 06/07/20 15:25 99 06/07/20 11:43 06/07/20 11:36 99 06/07/20 08:20 95 06/07/20 08:17 Weight Admit Weight 186 lb 4.8 oz Weight 199 lb Most Recent Monitor Data Heart Rate from ECG 64 NIBP 136/65 NIBP BP-Mean 88 Respiration from ECG 14 SpO2 95 Neck: supple Heart: RRR Respiratory: no wheezes, no rales, no ronchi Respiratory - other findings: trach Gastrointestinal: soft, normal bowel sounds Gastrointestinal - other findings: peg tube in place Hosp A/P - Plan (1) Pneumonia due to COVID-19 virus Code(s): U07.1 - COVID-19; J12.89 - OTHER VIRAL PNEUMONIA Status: Acute (2) Acute kidney injury superimposed on CKD Code(s): N17.9 - ACUTE KIDNEY FAILURE, UNSPECIFIED; N18.9 - CHRONIC KIDNEY DISEASE, UNSPECIFIED Status: Acute (3) Acute respiratory failure with hypoxia Code(s): J96.01 - ACUTE RESPIRATORY FAILURE WITH HYPOXIA Status: Acute (4) HTN (hypertension) Code(s): I10 - ESSENTIAL (PRIMARY) HYPERTENSION Status: Chronic Qualifiers: Hypertension type: essential hypertension Qualified Code(s): I10 - Essential (primary) hypertension (5) Dyslipidemia Code(s): E78.5 - HYPERLIPIDEMIA, UNSPECIFIED Status: Chronic (6) Peripheral neuropathy Code(s): G62.9 - POLYNEUROPATHY, UNSPECIFIED Status: Chronic Qualifiers: Peripheral neuropathy type: polyneuropathy, unspecified Qualified Code(s): G62.9 - Polyneuropathy, unspecified (7) Anemia of renal disease Code(s): D63.1 - ANEMIA IN CHRONIC KIDNEY DISEASE Status: Chronic (8) Metabolic acidosis Code(s): E87.2 - ACIDOSIS Status: Resolved - Plan is on high flow, continue dexamethasone. 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 on coreg and hydralazine, she also takes ambien chronically for insomnia at 10mg progressive worsening of renal function due to poor oral intake and likely contribution from covid, Creatinine around 2.5 at baseline is at high risk for complications with multiple comorbid conditions will need rehab/swing bed for dc plan, agrees to go to [facility] swing bed. off clonidine and is on lower dose coreg due to bradycardia with rates dipping into 40's which has resolved now. encourage po intake, is not eating much despite changing to regular diet patient has consented to talk to her daughter, d/w and gave full updates and guarded prognosis 05/10, 05/2020. 05/12 patient appeared little bit more confused today ABG indicated significant hypoxia. Her high flow was titrated accordingly per respiratory therapy. Patient continues not to eat very much. Patient encouraged to eat or drink supplements. Chest x-ray indicated worsening pneumonia. Worsening creatinine. We will hold all nephrotoxins. We will continue doxycycline and stop ceftriaxone. Patient started on a bicarb drip per nephrology. 05/13 pt was intubated on the night of 05/12. will continue current treatment. pt on steroids and abx. DVt ppx. H&H is low normal will continue to monitor 05/14 patient's urine output continues to decrease her creatinine continues to worsen. Patient may require dialysis. Patient's family called left message. Continue steroids for now. Patient received albumin. 05/15 patient continues to be intubated. She had a dialysis catheter placed today. We will continue steroids for now. Patient on DVT prophylaxis. 05/16 patient continues to be intubated. Dialysis catheter placed yesterday patient underwent dialysis. Not tolerating tube feeds will start patient on Reglan. Continue steroids for now. Will call family and update. 05/17 pt continues to be intubated. will continue dialysis for now. pt now tolerating her tube feeds. will continue to current tx and reglan. continue steroids for now. son Jimenez called and updated. pt's wbc elevated on broad abx for now. HH is 6.9 will monitor may need blood transfusion. 05/18 patient continues to be intubated. Will give 1 unit PRBC now. I did speak with the patient's son Jimenez yesterday updated him. Continues to have elevated WBCs patient on antibiotics. 05/19 patient continues to be intubated. H&H low stable 05/20 patient's son called and updated. Patient's oxygen saturations decreased to 40% FiO2. We will continue to monitor. H&H is low stable. Continues to have white count. We will continue antibiotics. 05/21 patient currently is doing well on 40% FiO2. Nurses decreasing sedation patient opening eyes but not following commands. H&H stable. 06/07Neurology was consulted on May 31 for concerns for possible seizures. On May 31 patient had a tunnel catheter, left subclavian central catheter, a PEG tube and a tracheostomy. Patient's left subclavian central line was removed. Patient was prophylactic started on Keppra for possible seizures. Patient just finished a course of antibiotics with Zosyn for Pseudomonas from her respiratory culture. She spiked a temperature last night blood cultures were done I will also send a sputum culture she has an elevated white count we will reconsult infectious disease and will start her on meropenem for now. will also get a cxr. pt now only has peg tube/trach and tunnel cath. Concern for line infect with tunnel cath.
--- NOTE | 2020-06-07 19:30 | RAD ---
PORTABLE CHEST: 06/07/20 HISTORY: Leukocytosis. COMPARISON: 06/05/20. Tracheostomy device and central line unchanged. Bilateral infiltrates and small bilateral effusions again noted. Cardiomegaly with mild vascular tawanna estion again noted. IMPRESSION: No significant interval change in the appearance of the chest. POS: AGW
[2020-06-08 05:00] LABS: PTT 34.3 sec (22.9-36.1); Prothrombin Time 13.6 sec (12.0-14.7)
[2020-06-08 05:07] LABS: #Basophils 0.1 thou/uL (0.0-0.2); #Eosinphils 0.1 thou/uL (0.0-0.7); #Lymphocytes 1.5 thou/uL (1.20-3.40); #Monocytes 1.1 thou/uL (0.11-0.59); #Neutrophils 16.6 thou/uL (1.40-6.50); %Basophils 0.5 % (0.0-1.0); %Eosinophils 0.3 % (0.0-10.0); %Monocytes 5.5 % (0.0-10.0); %Neutrophils 85.8 % (42.0-75.0); Hemoglobin 8.8 g/dL (12.0-16.0); Mean Corpuscular HGB CONC 33.8 g/dL (32.0-36.0); Mean Corpuscular Hemoglobin 31.6 pg (27.0-31.0); Mean Corpuscular Volume 93.3 fL (78.0-98.0); Platelet Count 261 thou/uL (130-400); RBC Distribution Width 16.5 % (11.5-14.5); White Blood Cell (WBC) Count 19.3 thou/uL (4.8-10.8)
[2020-06-08 05:52] LABS: Anion Gap 17 mmol/L (10-20); BUN (Urea Nitrogen) 69 mg/dL (9.8-20.1); Calc. Creatinine Clearance 17 mL/min (70-130); Calcium 8.2 mg/dL (7.8-10.44); Carbon Dioxide 27 mmol/L (23-31); Chloride 97 mmol/L (98-107); Glucose 194 mg/dL (80-115); Potassium 3.4 mmol/L (3.5-5.1); Sodium 138 mmol/L (136-145)
[2020-06-08] MEDS: Insulin Regular 300 UNITS/3 ML VIAL SC PRN ×3 (06:10→17:25)
[2020-06-08] MEDS: Mometasone 200 MCG/Formoterol 5 MCG 120 PUFF INHALER INH SCH ×2 (07:16→18:08)
[2020-06-08] MEDS: Acetaminophen 650 MG/20.3 ML UDCUP PER TUBE PRN ×2 (08:27→17:23)
[2020-06-08] MEDS: levETIRAcetam 500 MG TAB PER TUBE SCH ×2 (08:28→21:34)
[2020-06-08] MEDS: Pantoprazole 40 MG GRANULES PACKET PER TUBE SCH (08:28)
[2020-06-08] MEDS: Carvedilol 6.25 MG TAB PER TUBE SCH ×2 (08:28→21:34)
[2020-06-08] MEDS: Amlodipine 10 MG TAB PER TUBE SCH (08:28)
[2020-06-08] MEDS: cloNIDine 0.2 MG TAB PER TUBE SCH ×2 (08:28→21:34)
[2020-06-08] MEDS: predniSONE 20 MG TAB PO SCH (08:28)
[2020-06-08] MEDS: Insulin Glargine 15 UNITS in Pre-Filled Syringe 1 EACH SC SCH (08:29)
[2020-06-08] MEDS ORDERED: NIFEdipine XL 30 MG TAB PO SCH (09:20)
[2020-06-08] MEDS ORDERED: Carvedilol 6.25 MG TAB PER TUBE SCH (09:45)
--- NOTE | 2020-06-08 10:30 | PRG ---
DATE OF SERVICE: SUBJECTIVE: This 70-year-old female being seen for end-stage kidney disease. The patient remains nonverbal. PHYSICAL EXAMINATION: General: The patient is resting. Vital Signs: Pulse 69, breathing 16, blood pressure was 199/86. HEENT: Head normocephalic and atraumatic. Eyes intact, no ulcers. Nose intact, no ulcers. Ears intact, no ulcers. Neck: Supple. No JVD. Chest: Symmetrical and clear. Cardiovascular: Shows S1 and S2, no rub, no murmur. Gastrointestinal: Abdomen is soft, bowel sounds positive. Extremities: Show no edema or ulcers. Skin: Shows no rash or petechiae. Musculoskeletal: Shows no joint swelling or stiffness. Genitourinary: Shows no Do or CVA tenderness. Neurologic: The patient has no meaningful activity. LABORATORY DATA: Show hemoglobin 8.8, potassium 3.4. IMPRESSION/PLAN: 1. Stage III chronic kidney disease. Plan dialysis. 2. Hypertensive. 3. Anemia, stable. 4. Overall prognosis is poor due to altered mentation. Job ID: [id number]
[2020-06-08] MEDS ORDERED: Heparin 10,000 UNITS/ 10 ML VIAL ONE (12:02)
[2020-06-08] MEDS: MEROPENEM 1 GM/50 ML 1 GM in Premix Bag 1 BAG IVPB SCH (13:49)
[2020-06-08] MEDS: EPOETIN ALFA-EPBX (ESRD) 10,000 UNIT/ML VIAL IVP SCH (17:24)
[2020-06-08] MEDS ORDERED: Fluconazole In NaCl,Iso-Osm 800 MG in Admixture Fee 1 EACH IVPB SCH (20:37)
[2020-06-09] MEDS: MEROPENEM 1 GM/50 ML 1 GM in Premix Bag 1 BAG IVPB SCH ×3 (00:23→22:30)
[2020-06-09 05:14] LABS: INR-International Normal Ratio 1.1
[2020-06-09 05:15] LABS: PTT 32.8 sec (22.9-36.1)
[2020-06-09 05:25] LABS: Anion Gap 17 mmol/L (10-20); BUN (Urea Nitrogen) 50 mg/dL (9.8-20.1); Calc. Creatinine Clearance 19 mL/min (70-130); Calcium 8.3 mg/dL (7.8-10.44); Carbon Dioxide 24 mmol/L (23-31); Chloride 98 mmol/L (98-107); Glucose 147 mg/dL (80-115); Potassium 3.7 mmol/L (3.5-5.1); Sodium 135 mmol/L (136-145)
[2020-06-09 06:48] LABS: Band 2 % (5-11); Hemoglobin 9.4 g/dL (12.0-16.0); Lymphocytes 14 % (21-51); MDiff Complete? YES; Mean Corpuscular HGB CONC 32.7 g/dL (32.0-36.0); Mean Corpuscular Hemoglobin 30.6 pg (27.0-31.0); Mean Corpuscular Volume 93.7 fL (78.0-98.0); Mean Platelet Volume 8.2 fL (7.4-10.4); Monocytes 3 % (0-10); Neutrophil 80 % (42-75); Platelet Count 276 thou/uL (130-400); RBC Distribution Width 17.5 % (11.5-14.5); Red Blood Cell (RBC) Count 3.06 mill/uL (4.20-5.40); White Blood Cell (WBC) Count 18.6 thou/uL (4.8-10.8)
[2020-06-09] MEDS: Mometasone 200 MCG/Formoterol 5 MCG 120 PUFF INHALER INH SCH ×2 (07:38→18:03)
[2020-06-09] MEDS: Insulin Glargine 15 UNITS in Pre-Filled Syringe 1 EACH SC SCH (09:12)
[2020-06-09] MEDS: Pantoprazole 40 MG GRANULES PACKET PER TUBE SCH (09:13)
[2020-06-09] MEDS: Amlodipine 10 MG TAB PER TUBE SCH (09:13)
[2020-06-09] MEDS: cloNIDine 0.2 MG TAB PER TUBE SCH ×2 (09:13→20:41)
[2020-06-09] MEDS: levETIRAcetam 500 MG TAB PER TUBE SCH ×2 (09:13→20:41)
[2020-06-09] MEDS: predniSONE 20 MG TAB PO SCH (09:13)
[2020-06-09] MEDS: Carvedilol 6.25 MG TAB PER TUBE SCH ×2 (09:13→20:41)
[2020-06-09] MEDS: Insulin Regular 300 UNITS/3 ML VIAL SC PRN ×2 (12:14→17:49)
--- NOTE | 2020-06-09 13:33 | PDOC.HOSPP ---
- Subjective Encounter Date: 06/09/20 Encounter Time: 12:30 Subjective: Patient continues to be nonverbal - Objective Vital Signs & Weight: Vital Signs (12 hours) Temp Pulse Pulse Pulse Resp BP BP 06/09/20 11:40 62 62 154/70 H 155/71 H 06/09/20 07:39 06/09/20 07:38 06/09/20 07:15 99.9 F H 64 20 06/09/20 06:27 62 06/09/20 04:40 99.4 F 62 18 BP BP Pulse Ox Pulse Ox Pulse Ox 06/09/20 11:40 96 97 06/09/20 07:39 95 06/09/20 07:38 95 06/09/20 07:15 173/79 H 97 06/09/20 06:27 145/65 H 06/09/20 04:40 185/81 H 99 Weight Admit Weight 186 lb 4.8 oz Weight 197 lb 3.2 oz Most Recent Monitor Data Heart Rate from ECG 64 NIBP 136/65 NIBP BP-Mean 88 Respiration from ECG 14 SpO2 95 I&O: 06/08/20 06/09/20 06/10/20 06:59 06:59 06:59 Intake Total 820 1485 330 Balance 820 1485 330 Result Diagrams: 06/09/20 04:31 06/09/20 04:30 Additional Labs: Accuchecks 06/09/20 06/09/20 06/08/20 12:10 05:21 17:15 POC Glucose 237 H 146 H 233 H Hospitalist ROS - Review of Systems Other: Patient nonverbal unable to obtain - Medication Medications: Active Medications Generic Name Dose Route Start Last Admin Trade Name Freq PRN Reason Stop Dose Admin Acetaminophen 650 mg 05/25/20 18:57 06/08/20 17:23 Acetaminophen 650 Mg/20.3 Ml Udcup PER TUBE 650 mg Q4H PRN Administration Fever > 101 Albuterol Sulfate 2 puff 05/05/20 03:59 05/05/20 07:40 Albuterol 200 Puff (6.7gm Inhaler) INH 2 puff [id number] PRN Administration Wheezing Amlodipine Besylate 10 mg 05/15/20 09:00 06/09/20 09:13 Amlodipine 10 Mg Tab PER TUBE 10 mg DAILY ESTER Administration Carvedilol 12.5 mg 06/08/20 21:00 06/09/20 09:13 Carvedilol 6.25 Mg Tab PER TUBE 12.5 mg BID ESTER Administration Clonidine 0.2 mg 05/27/20 21:00 06/09/20 09:13 Clonidine 0.2 Mg Tab PER TUBE 0.2 mg BID ESTER Administration Epoetin Selwyn-epbx 10,000 unit 05/28/20 18:00 06/08/20 17:24 Epoetin Selwyn-Epbx (Esrd) 10,000 Unit/Ml Vial IVP 10,000 unit MoWeFr ESTER Administration Insulin Glargine 15 units/ 0.15 mls @ 0 mls/hr 06/04/20 09:00 06/09/20 09:12 Miscellaneous Medication SC 0.15 mls QAM ESTER Administration Meropenem 1 gm/ Device 50 mls @ 100 mls/hr 06/07/20 11:00 06/09/20 12:17 IVPB 50 mls 1100,2300 ESTER Administration Insulin Human Regular 0 units 05/13/20 09:28 06/09/20 12:14 Insulin Regular 300 Units/3 Ml Vial SC 4 unit .MODERATE SLIDING SC PRN Administration Moderate Correctional Scale Labetalol HCl 20 mg 05/12/20 05:37 05/29/20 11:27 Labetalol Hcl 100 Mg/20 Ml Vial SLOW IVP 20 mg Q4H PRN Administration SBP >170 Levetiracetam 500 mg 06/04/20 09:00 06/09/20 09:13 Levetiracetam 500 Mg Tab PER TUBE 500 mg BID ESTER Administration Mometasone Furoate/Formoterol Fumar 2 puff 05/09/20 18:30 06/09/20 07:38 Mometasone 200 Mcg/Formoterol 5 Mcg 120 Puff Inhaler INH 2 puff BID-RT ESTER Administration Ondansetron HCl 4 mg 05/03/20 17:50 05/23/20 16:00 Ondansetron Pf 4 Mg/2 Ml Vial IVP 4 mg Q6H PRN Administration Nausea/Vomiting Pantoprazole Sodium 40 mg 06/04/20 09:00 06/09/20 09:13 Pantoprazole 40 Mg Granules Packet PER TUBE 40 mg DAILY ESTER Administration Prednisone 20 mg 06/05/20 08:00 06/09/20 09:13 Prednisone 20 Mg Tab PO 20 mg QAM-WM ESTER Administration Sodium Chloride 10 ml 05/24/20 10:31 06/06/20 19:57 Flush - Normal Saline 10 Ml Syringe IVF 10 ml PRN PRN Administration Saline Flush Hospitalist Exam Vitals: Vital Signs (12 hours) Temp Pulse Pulse Pulse Resp BP BP 06/09/20 11:40 62 62 154/70 H 155/71 H 06/09/20 07:39 06/09/20 07:38 06/09/20 07:15 99.9 F H 64 20 06/09/20 06:27 62 06/09/20 04:40 99.4 F 62 18 BP BP Pulse Ox Pulse Ox Pulse Ox 06/09/20 11:40 96 97 06/09/20 07:39 95 06/09/20 07:38 95 06/09/20 07:15 173/79 H 97 06/09/20 06:27 145/65 H 06/09/20 04:40 185/81 H 99 Weight Admit Weight 186 lb 4.8 oz Weight 197 lb 3.2 oz Most Recent Monitor Data Heart Rate from ECG 64 NIBP 136/65 NIBP BP-Mean 88 Respiration from ECG 14 SpO2 95 Neck: supple Heart: no gallops, no rubs Respiratory: no wheezes, no ronchi Gastrointestinal: soft, normal bowel sounds Extremities: 2+ LE edema Hosp A/P - Plan (1) Pneumonia due to COVID-19 virus Code(s): U07.1 - COVID-19; J12.89 - OTHER VIRAL PNEUMONIA Status: Acute (2) Acute kidney injury superimposed on CKD Code(s): N17.9 - ACUTE KIDNEY FAILURE, UNSPECIFIED; N18.9 - CHRONIC KIDNEY DISEASE, UNSPECIFIED Status: Acute (3) Acute respiratory failure with hypoxia Code(s): J96.01 - ACUTE RESPIRATORY FAILURE WITH HYPOXIA Status: Acute (4) HTN (hypertension) Code(s): I10 - ESSENTIAL (PRIMARY) HYPERTENSION Status: Chronic Qualifiers: Hypertension type: essential hypertension Qualified Code(s): I10 - Essential (primary) hypertension (5) Dyslipidemia Code(s): E78.5 - HYPERLIPIDEMIA, UNSPECIFIED Status: Chronic (6) Peripheral neuropathy Code(s): G62.9 - POLYNEUROPATHY, UNSPECIFIED Status: Chronic Qualifiers: Peripheral neuropathy type: polyneuropathy, unspecified Qualified Code(s): G62.9 - Polyneuropathy, unspecified (7) Anemia of renal disease Code(s): D63.1 - ANEMIA IN CHRONIC KIDNEY DISEASE Status: Chronic (8) Metabolic acidosis Code(s): E87.2 - ACIDOSIS Status: Resolved - Plan is on high flow, continue dexamethasone. 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 on coreg and hydralazine, she also takes ambien chronically for insomnia at 10mg progressive worsening of renal function due to poor oral intake and likely contribution from covid, Creatinine around 2.5 at baseline is at high risk for complications with multiple comorbid conditions will need rehab/swing bed for dc plan, agrees to go to [place] swing bed. off clonidine and is on lower dose coreg due to bradycardia with rates dipping into 40's which has resolved now. encourage po intake, is not eating much despite changing to regular diet patient has consented to talk to her daughter, d/w and gave full updates and guarded prognosis 05/10, 05/2020. 05/12 patient appeared little bit more confused today ABG indicated significant hypoxia. Her high flow was titrated accordingly per respiratory therapy. Patient continues not to eat very much. Patient encouraged to eat or drink supplements. Chest x-ray indicated worsening pneumonia. Worsening creatinine. We will hold all nephrotoxins. We will continue doxycycline and stop ceftriaxone. Patient started on a bicarb drip per nephrology. 05/13 pt was intubated on the night of 05/12. will continue current treatment. pt on steroids and abx. DVt ppx. H&H is low normal will continue to monitor 05/14 patient's urine output continues to decrease her creatinine continues to worsen. Patient may require dialysis. Patient's family called left message. Continue steroids for now. Patient received albumin. 05/15 patient continues to be intubated. She had a dialysis catheter placed today. We will continue steroids for now. Patient on DVT prophylaxis. 05/16 patient continues to be intubated. Dialysis catheter placed yesterday patient underwent dialysis. Not tolerating tube feeds will start patient on Reglan. Continue steroids for now. Will call family and update. 05/17 pt continues to be intubated. will continue dialysis for now. pt now tolerating her tube feeds. will continue to current tx and reglan. continue steroids for now. son Jimenez called and updated. pt's wbc elevated on broad abx for now. HH is 6.9 will monitor may need blood transfusion. 05/18 patient continues to be intubated. Will give 1 unit PRBC now. I did speak with the patient's son Jimenez yesterday updated him. Continues to have elevated WBCs patient on antibiotics. 05/19 patient continues to be intubated. H&H low stable 05/20 patient's son called and updated. Patient's oxygen saturations decreased to 40% FiO2. We will continue to monitor. H&H is low stable. Continues to have white count. We will continue antibiotics. 05/21 patient currently is doing well on 40% FiO2. Nurses decreasing sedation patient opening eyes but not following commands. H&H stable. 06/07Neurology was consulted on May 31 for concerns for possible seizures. On May 31 patient had a tunnel catheter, left subclavian central catheter, a PEG tube and a tracheostomy. Patient's left subclavian central line was removed. Patient was prophylactic started on Keppra for possible seizures. Patient just finished a course of antibiotics with Zosyn for Pseudomonas from her respiratory culture. She spiked a temperature last night blood cultures were done I will also send a sputum culture she has an elevated white count we will reconsult infectious disease and will start her on meropenem for now. will also get a cxr. pt now only has peg tube/trach and tunnel cath. Concern for line infect with tunnel cath. 06/08 we will continue current antibiotics. She continues to have a fever. We will touch base with infectious disease. She currently only has dialysis catheter in place. 06/09 patient's blood cultures indicates yeast. Spoke with infectious disease continue Diflucan for now. Will need to wait until yeast has been speciated.
--- NOTE | 2020-06-09 13:38 | PDOC.HOSPP ---
- Subjective Encounter Date: 06/08/20 Encounter Time: 10:30 Subjective: Patient nonverbal - Objective Vital Signs & Weight: Vital Signs (12 hours) Temp Pulse Pulse Pulse Resp BP BP 06/09/20 11:40 62 62 154/70 H 155/71 H 06/09/20 07:39 06/09/20 07:38 06/09/20 07:15 99.9 F H 64 20 06/09/20 06:27 62 06/09/20 04:40 99.4 F 62 18 BP BP Pulse Ox Pulse Ox Pulse Ox 06/09/20 11:40 96 97 06/09/20 07:39 95 06/09/20 07:38 95 06/09/20 07:15 173/79 H 97 06/09/20 06:27 145/65 H 06/09/20 04:40 185/81 H 99 Weight Admit Weight 186 lb 4.8 oz Weight 197 lb 3.2 oz Most Recent Monitor Data Heart Rate from ECG 64 NIBP 136/65 NIBP BP-Mean 88 Respiration from ECG 14 SpO2 95 I&O: 06/08/20 06/09/20 06/10/20 06:59 06:59 06:59 Intake Total 820 1485 330 Balance 820 1485 330 Result Diagrams: 06/09/20 04:31 06/09/20 04:30 Additional Labs: Accuchecks 06/09/20 06/09/20 06/08/20 12:10 05:21 17:15 POC Glucose 237 H 146 H 233 H Hospitalist ROS - Review of Systems Other: Patient nonverbal - Medication Medications: Active Medications Generic Name Dose Route Start Last Admin Trade Name Freq PRN Reason Stop Dose Admin Acetaminophen 650 mg 05/25/20 18:57 06/08/20 17:23 Acetaminophen 650 Mg/20.3 Ml Udcup PER TUBE 650 mg Q4H PRN Administration Fever > 101 Albuterol Sulfate 2 puff 05/05/20 03:59 05/05/20 07:40 Albuterol 200 Puff (6.7gm Inhaler) INH 2 puff [id number] PRN Administration Wheezing Amlodipine Besylate 10 mg 05/15/20 09:00 06/09/20 09:13 Amlodipine 10 Mg Tab PER TUBE 10 mg DAILY ESTER Administration Carvedilol 12.5 mg 06/08/20 21:00 06/09/20 09:13 Carvedilol 6.25 Mg Tab PER TUBE 12.5 mg BID ESTER Administration Clonidine 0.2 mg 05/27/20 21:00 06/09/20 09:13 Clonidine 0.2 Mg Tab PER TUBE 0.2 mg BID ESTER Administration Epoetin Selwyn-epbx 10,000 unit 05/28/20 18:00 06/08/20 17:24 Epoetin Selwyn-Epbx (Esrd) 10,000 Unit/Ml Vial IVP 10,000 unit MoWeFr ESTER Administration Insulin Glargine 15 units/ 0.15 mls @ 0 mls/hr 06/04/20 09:00 06/09/20 09:12 Miscellaneous Medication SC 0.15 mls QAM ESTER Administration Meropenem 1 gm/ Device 50 mls @ 100 mls/hr 06/07/20 11:00 06/09/20 12:17 IVPB 50 mls 1100,2300 ESTER Administration Insulin Human Regular 0 units 05/13/20 09:28 06/09/20 12:14 Insulin Regular 300 Units/3 Ml Vial SC 4 unit .MODERATE SLIDING SC PRN Administration Moderate Correctional Scale Labetalol HCl 20 mg 05/12/20 05:37 05/29/20 11:27 Labetalol Hcl 100 Mg/20 Ml Vial SLOW IVP 20 mg Q4H PRN Administration SBP >170 Levetiracetam 500 mg 06/04/20 09:00 06/09/20 09:13 Levetiracetam 500 Mg Tab PER TUBE 500 mg BID ESTER Administration Mometasone Furoate/Formoterol Fumar 2 puff 05/09/20 18:30 06/09/20 07:38 Mometasone 200 Mcg/Formoterol 5 Mcg 120 Puff Inhaler INH 2 puff BID-RT ESTER Administration Ondansetron HCl 4 mg 05/03/20 17:50 05/23/20 16:00 Ondansetron Pf 4 Mg/2 Ml Vial IVP 4 mg Q6H PRN Administration Nausea/Vomiting Pantoprazole Sodium 40 mg 06/04/20 09:00 06/09/20 09:13 Pantoprazole 40 Mg Granules Packet PER TUBE 40 mg DAILY ESTER Administration Prednisone 20 mg 06/05/20 08:00 06/09/20 09:13 Prednisone 20 Mg Tab PO 20 mg QAM-WM ESTER Administration Sodium Chloride 10 ml 05/24/20 10:31 06/06/20 19:57 Flush - Normal Saline 10 Ml Syringe IVF 10 ml PRN PRN Administration Saline Flush Hospitalist Exam Vitals: Vital Signs (12 hours) Temp Pulse Pulse Pulse Resp BP BP 06/09/20 11:40 62 62 154/70 H 155/71 H 06/09/20 07:39 06/09/20 07:38 06/09/20 07:15 99.9 F H 64 20 06/09/20 06:27 62 06/09/20 04:40 99.4 F 62 18 BP BP Pulse Ox Pulse Ox Pulse Ox 06/09/20 11:40 96 97 06/09/20 07:39 95 06/09/20 07:38 95 06/09/20 07:15 173/79 H 97 06/09/20 06:27 145/65 H 06/09/20 04:40 185/81 H 99 Weight Admit Weight 186 lb 4.8 oz Weight 197 lb 3.2 oz Most Recent Monitor Data Heart Rate from ECG 64 NIBP 136/65 NIBP BP-Mean 88 Respiration from ECG 14 SpO2 95 Heart: RRR, normal peripheral pulses Respiratory: no wheezes, no rales Gastrointestinal: soft, normal bowel sounds Extremities: 1+ LE edema Hosp A/P - Plan (1) Pneumonia due to COVID-19 virus Code(s): U07.1 - COVID-19; J12.89 - OTHER VIRAL PNEUMONIA Status: Acute (2) Acute kidney injury superimposed on CKD Code(s): N17.9 - ACUTE KIDNEY FAILURE, UNSPECIFIED; N18.9 - CHRONIC KIDNEY DISEASE, UNSPECIFIED Status: Acute (3) Acute respiratory failure with hypoxia Code(s): J96.01 - ACUTE RESPIRATORY FAILURE WITH HYPOXIA Status: Acute (4) HTN (hypertension) Code(s): I10 - ESSENTIAL (PRIMARY) HYPERTENSION Status: Chronic Qualifiers: Hypertension type: essential hypertension Qualified Code(s): I10 - Essential (primary) hypertension (5) Dyslipidemia Code(s): E78.5 - HYPERLIPIDEMIA, UNSPECIFIED Status: Chronic (6) Peripheral neuropathy Code(s): G62.9 - POLYNEUROPATHY, UNSPECIFIED Status: Chronic Qualifiers: Peripheral neuropathy type: polyneuropathy, unspecified Qualified Code(s): G62.9 - Polyneuropathy, unspecified (7) Anemia of renal disease Code(s): D63.1 - ANEMIA IN CHRONIC KIDNEY DISEASE Status: Chronic (8) Metabolic acidosis Code(s): E87.2 - ACIDOSIS Status: Resolved - Plan is on high flow, continue dexamethasone. 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 on coreg and hydralazine, she also takes ambien chronically for insomnia at 10mg progressive worsening of renal function due to poor oral intake and likely contribution from covid, Creatinine around 2.5 at baseline is at high risk for complications with multiple comorbid conditions will need rehab/swing bed for dc plan, agrees to go to [place] swing bed. off clonidine and is on lower dose coreg due to bradycardia with rates dipping into 40's which has resolved now. encourage po intake, is not eating much despite changing to regular diet patient has consented to talk to her daughter, d/w and gave full updates and guarded prognosis 05/10, 05/2020. 05/12 patient appeared little bit more confused today ABG indicated significant hypoxia. Her high flow was titrated accordingly per respiratory therapy. Patient continues not to eat very much. Patient encouraged to eat or drink supplements. Chest x-ray indicated worsening pneumonia. Worsening creatinine. We will hold all nephrotoxins. We will continue doxycycline and stop ceftriaxone. Patient started on a bicarb drip per nephrology. 05/13 pt was intubated on the night of 05/12. will continue current treatment. pt on steroids and abx. DVt ppx. H&H is low normal will continue to monitor 05/14 patient's urine output continues to decrease her creatinine continues to worsen. Patient may require dialysis. Patient's family called left message. Continue steroids for now. Patient received albumin. 05/15 patient continues to be intubated. She had a dialysis catheter placed today. We will continue steroids for now. Patient on DVT prophylaxis. 05/16 patient continues to be intubated. Dialysis catheter placed yesterday patient underwent dialysis. Not tolerating tube feeds will start patient on Reglan. Continue steroids for now. Will call family and update. 05/17 pt continues to be intubated. will continue dialysis for now. pt now tolerating her tube feeds. will continue to current tx and reglan. continue steroids for now. son Jimenez called and updated. pt's wbc elevated on broad abx for now. HH is 6.9 will monitor may need blood transfusion. 05/18 patient continues to be intubated. Will give 1 unit PRBC now. I did speak with the patient's son Jimenez yesterday updated him. Continues to have elevated WBCs patient on antibiotics. 05/19 patient continues to be intubated. H&H low stable 05/20 patient's son called and updated. Patient's oxygen saturations decreased to 40% FiO2. We will continue to monitor. H&H is low stable. Continues to have white count. We will continue antibiotics. 05/21 patient currently is doing well on 40% FiO2. Nurses decreasing sedation patient opening eyes but not following commands. H&H stable. 06/07Neurology was consulted on May 31 for concerns for possible seizures. On May 31 patient had a tunnel catheter, left subclavian central catheter, a PEG tube and a tracheostomy. Patient's left subclavian central line was removed. Patient was prophylactic started on Keppra for possible seizures. Patient just finished a course of antibiotics with Zosyn for Pseudomonas from her respiratory culture. She spiked a temperature last night blood cultures were done I will also send a sputum culture she has an elevated white count we will reconsult infectious disease and will start her on meropenem for now. will also get a cxr. pt now only has peg tube/trach and tunnel cath. Concern for line infect with tunnel cath. 06/08 we will continue current antibiotics. She continues to have a fever. We will touch base with infectious disease. She currently only has dialysis catheter in place.
--- NOTE | 2020-06-09 14:04 | PDOC.BPN ---
- Brief Progress Note Encounter Date: 06/09/20 Encounter Time: 14:04 Subjective: Seen and examined in the room. Patient is non-verbal. No acute overnight events. She is on 1:1 observation to prevent tracheostomy dislodgment. Review of systems Gen.: No fever, no chills All the 14 systems reviewed except for the ones mentioned above are negative Physical examination Vital Signs Temp 99.1 F 06/09/20 11:35 Pulse 62 06/09/20 11:40 Resp 18 06/09/20 11:35 BP 154/70 H 06/09/20 11:40 Pulse Ox 96 06/09/20 11:40 Intake & Output 06/08/20 06/09/20 06/09/20 18:59 06:59 18:59 Intake Total 1248 237 660 Balance 1248 237 660 Weight 197 lb 3.2 oz Intake: Intake, IV Amount 100 Tube Feeding 1088 237 480 Tube Irrigant 60 180 Other: Voiding Method Diaper Diaper Diaper # Bowel Movements 1 Constitutional: comfortable, not in pain HEENT: Mucous membranes moist, no icterus Neck: Tracheostomy, right IJ dialysis catheter Heart: Regular rate and rhythm; no murmurs Lungs: Air entry equal bilateral; no wheezes Abdomen: Soft; non-tender; no guarding/tenderness/rebound Extremities: No calf tenderness; no ulcers, no bruises Neurological: Patient is awake, mooving limbs spontaneously Skin: No rash, no ulcers Psychological: Not agitated Labs and Imaging reviewed Laboratory Results - last 24 hr 06/08/20 06/09/20 06/09/20 17:15 04:30 04:31 WBC 18.6 H RBC 3.06 L Hgb 9.4 L Hct 28.7 L MCV 93.7 MCH 30.6 MCHC 32.7 RDW 17.5 H Plt Count 276 MPV 8.2 Neutrophils % (Manual) 80 H Band Neuts % (Manual) 2 L Lymphocytes % (Manual) 14 L Monocytes % (Manual) 3 Basophils % (Manual) 1 PT INR APTT Sodium 135 L Potassium 3.7 Chloride 98 Carbon Dioxide 24 Anion Gap 17 BUN 50 H Creatinine 3.38 H Estimated GFR (MDRD) 16 Glucose 147 H POC Glucose 233 H Calcium 8.3 06/09/20 06/09/20 06/09/20 04:31 05:21 12:10 WBC RBC Hgb Hct MCV MCH MCHC RDW Plt Count MPV Neutrophils % (Manual) Band Neuts % (Manual) Lymphocytes % (Manual) Monocytes % (Manual) Basophils % (Manual) PT 14.0 INR 1.1 APTT 32.8 Sodium Potassium Chloride Carbon Dioxide Anion Gap BUN Creatinine Estimated GFR (MDRD) Glucose POC Glucose 146 H 237 H Calcium Assessment and plan Stage III/IV CKD Hypertension Anemia Pneumonia due to COVID-19 Patient had hemodialysis yesterday. Anticipate dialysis on Thursday. Patient's bl ood cultures are growing yeast, full culture and sensitivities pending. Patient is currently on Diflucan. Patient's TDC had to be revised if patient continues to have persistent yeast in the blood cultures. Dose medications for HD. D/w VERO
--- NOTE | 2020-06-09 17:20 | PRG ---
DATE OF SERVICE: 06/09/2020 SUBJECTIVE: Ms. Reed is still not very cooperative. She does not communicate with the examiner. She did not let me examine her eyes and did not open her mouth either. OBJECTIVE: VITAL SIGNS: T-max 100.2 yesterday at 5 p.m. She is now 98.4. LUNGS: Clear. HEART: S1, S2, regular rate. ABDOMEN: Soft, not distended. LABORATORY DATA: White cell count is at 18.6, hemoglobin 9.4, platelets 276 with 80% neutrophils. Creatinine 3.38 and now we have yeast species in one set of blood cultures. This is obtained from the right hand. 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 The patient had required mechanical ventilation, had a PEG and trach and had a femoral central line for a while, which has been removed due to Pseudomonas colonization. She then got hemodialysis access in the left IJ tunnel position and a right IJ triple-lumen catheter. She now has this behavioral abnormality, which is probably encephalopathy associated with COVID-19 and ICU stay, and she has had complications that are typical of this situation with line colonization, first time by Pseudomonas and now with Veronica species yet to be identified, susceptibility tested. The organism could be albicans and most of the Veronica species isolated from this hospital are susceptible to Diflucan, so would recommend Diflucan orally given 200 mg daily for 21 days. Need to rule out endophthalmitis. That is fairly simple to do, and I think the line has been removed, so she only has the hemodialysis catheter which could be colonized by Veronica. In that case, she is going to experience recrudescence of the fungemia after discontinuation of Diflucan. So it is important to repeat the blood culture sets after the Diflucan is discontinued. If the Veronica fungemia recurs, then catheter will have to be exchanged. Job ID: [id number]
[2020-06-09] MEDS: Acetaminophen 650 MG/20.3 ML UDCUP PER TUBE PRN (20:41)
[2020-06-09] MEDS ORDERED: Fluconazole In NaCl,Iso-Osm 400 MG in Premix Bag 1 BAG IVPB SCH (21:00)
--- NOTE | 2020-06-10 05:36 | PRG ---
DATE OF SERVICE: 06/08/2020 SUBJECTIVE: I was asked to see Ms. Reed because she is having recrudescence of some inflammatory process with fever and leukocytosis. Currently, she is back in the observation unit. She is still on isolation precautions, which are not needed anymore. She had been in the unit for a while, was intubated and now has trach and PEG. When I saw her, she had her eyes closed and would not open them. When I tried to shine a flashlight in her eyes, she immediately tightly closed them, would not open her mouth, so she is really not following any commands. I did not interact with her. OBJECTIVE: VITAL SIGNS: Showed T-max of 101.3 yesterday at 11:00 a.m. She had been with elevations intermittently for the past few days. These kind of started on June 05. Tracheostomy with some secretion, but not much. LUNGS: With scattered rhonchi. Most of her lung brock are actually clear. HEART: S1 and S2. Regular rate. ABDOMEN: Not distended. Gastrostomy exit site appears normal. She is voiding in the diaper. NEUROLOGIC: I could not evaluate her orbits or neither her mouth. She has good muscle tone in all 4 extremities. Plantar responses are flexor, but more in withdrawal reaction than true flexor reflex response. Pulses are present. SKIN: Warm, dry. No skin lesions are noted. LABORATORY DATA: White cell count was 9.6 on May 28 and started to elevate, then it peaked at 20.8 yesterday, today it is 19.3; neutrophil percentage was 60% on the , now is starting to go up, peaked at 88, now it is 82. Bands were 6 on the , up to 8%, now they are down to 1%. Hemoglobin and 8.8. Chemistry: Creatinine has increased steadily. She had a dialysis catheter placed. I think Dr. Samuels is planning to start hemodialysis. Chest x-ray done yesterday showed bilateral infiltrates, small effusions, cardiomegaly. Her last liver profile included bilirubin and transaminases were within normal limits, but it was a long time ago, more than 10 days ago. She is currently on Coreg, clonidine, insulin, Keppra. Meropenem was started . Still on prednisone. She had a positive culture for P aeruginosa from the catheter tip. Catheters were inserted on May 29 included right internal jugular cuffed tunneled hemodialysis catheter, left internal jugular central line. The catheter tip is a left femoral central venous line catheter tip. She had greater than 15 colony-forming units of Pseudomonas aeruginosa pathogen. This was susceptible to meropenem. ASSESSMENT AND DISCUSSION: Type 2 diabetes, cardiomyopathy, chronic kidney disease with worsening of COVID-19, eventual intubation, survival in the ICU phase with transfer back to the observation unit with a trach and PEG. Now, she is encephalopathic and has developed fever. She has leukocytosis probably in part due to corticosteroids. I believe that the catheter in the femoral area was most likely the culprit here. That has been removed and we should see resolution of the fever going forward as well as potential decrease in leukocyte count, however, the leukocyte count may be in part due to corticosteroids. I would advise those to be tapered as well. We will follow up the course of her inflammatory markers and see if this resolves. The other catheters had been in place since the , observe persistence of the problem if the other catheters have become colonized as well. An intraabdominal inflammatory process appears to be less likely. We do not have any samples from her urine, might be worthwhile to submit a sample, though it would require in and out catheterization. Job ID: [id number] MTDD
[2020-06-10] MEDS: Insulin Regular 300 UNITS/3 ML VIAL SC PRN ×3 (05:54→18:39)
[2020-06-10 06:11] LABS: Anion Gap 19 mmol/L (10-20); BUN (Urea Nitrogen) 71 mg/dL (9.8-20.1); Calc. Creatinine Clearance 16 mL/min (70-130); Calcium 8.7 mg/dL (7.8-10.44); Carbon Dioxide 23 mmol/L (23-31); Chloride 98 mmol/L (98-107); Glucose 204 mg/dL (80-115); Sodium 136 mmol/L (136-145)
[2020-06-10 06:13] LABS: Hemoglobin 9.2 g/dL (12.0-16.0); Mean Corpuscular HGB CONC 32.1 g/dL (32.0-36.0); Mean Corpuscular Volume 93.4 fL (78.0-98.0); Mean Platelet Volume 8.5 fL (7.4-10.4); Platelet Count 243 thou/uL (130-400); RBC Distribution Width 17.6 % (11.5-14.5); Red Blood Cell (RBC) Count 3.08 mill/uL (4.20-5.40); White Blood Cell (WBC) Count 16.6 thou/uL (4.8-10.8)
[2020-06-10 06:20] LABS: Anisocytosis SLIGHT = 6-15 cells (100X) (0-5/hpf); Band 1 % (5-11); Lymphocytes 10 % (21-51); MDiff Complete? YES; Monocytes 8 % (0-10); Neutrophil 81 % (42-75); Nucleated RBC 1 % (0); Polychromasia SLIGHT = 2-3 cells (100X) (0-2/hpf); Schistocytes SLIGHT = 2-5 cells (100X) (0-1/hpf)
[2020-06-10] MEDS: Mometasone 200 MCG/Formoterol 5 MCG 120 PUFF INHALER INH SCH ×2 (08:38→18:41)
[2020-06-10] MEDS: predniSONE 20 MG TAB PO SCH (08:39)
[2020-06-10] MEDS: Carvedilol 6.25 MG TAB PER TUBE SCH ×2 (08:40→21:37)
[2020-06-10] MEDS: Amlodipine 10 MG TAB PER TUBE SCH (08:40)
[2020-06-10] MEDS: Fluconazole 100 MG TAB PO SCH (08:40)
[2020-06-10] MEDS: cloNIDine 0.2 MG TAB PER TUBE SCH ×2 (08:40→21:38)
[2020-06-10] MEDS: Pantoprazole 40 MG GRANULES PACKET PER TUBE SCH (08:41)
[2020-06-10] MEDS: Insulin Glargine 15 UNITS in Pre-Filled Syringe 1 EACH SC SCH (08:41)
[2020-06-10] MEDS: levETIRAcetam 500 MG TAB PER TUBE SCH ×2 (08:41→21:37)
--- NOTE | 2020-06-10 11:20 | PDOC.HOSPP ---
- Subjective Encounter Date: 06/10/20 Encounter Time: 09:45 Subjective: pt nonverbal. she does not follow command but will get agitated if we try to touch her. - Objective Vital Signs & Weight: Vital Signs (12 hours) Temp Pulse Resp BP Pulse Ox 06/10/20 04:00 99.4 F 65 17 155/72 H 100 06/10/20 02:14 98.3 F 06/09/20 23:49 65 16 162/78 H Weight Admit Weight 186 lb 4.8 oz Weight 197 lb 3.2 oz Most Recent Monitor Data Heart Rate from ECG 64 NIBP 136/65 NIBP BP-Mean 88 Respiration from ECG 14 SpO2 95 I&O: 06/09/20 06/10/20 06/11/20 06:59 06:59 06:59 Intake Total 1485 1607 Balance 1485 1607 Result Diagrams: 06/10/20 05:03 06/10/20 05:03 Additional Labs: Accuchecks 06/10/20 06/09/20 06/09/20 04:42 23:42 17:41 POC Glucose 196 H 295 H 326 H 06/09/20 12:10 POC Glucose 237 H Hospitalist ROS - Review of Systems Other: unable to obtain - Medication Medications: Active Medications Generic Name Dose Route Start Last Admin Trade Name Freq PRN Reason Stop Dose Admin Acetaminophen 650 mg 05/25/20 18:57 06/09/20 20:41 Acetaminophen 650 Mg/20.3 Ml Udcup PER TUBE 650 mg Q4H PRN Administration Fever > 101 Albuterol Sulfate 2 puff 05/05/20 03:59 05/05/20 07:40 Albuterol 200 Puff (6.7gm Inhaler) INH 2 puff [id number] PRN Administration Wheezing Amlodipine Besylate 10 mg 05/15/20 09:00 06/10/20 08:40 Amlodipine 10 Mg Tab PER TUBE 10 mg DAILY ESTER Administration Carvedilol 12.5 mg 06/08/20 21:00 06/10/20 08:40 Carvedilol 6.25 Mg Tab PER TUBE 12.5 mg BID ESTER Administration Clonidine 0.2 mg 05/27/20 21:00 06/10/20 08:40 Clonidine 0.2 Mg Tab PER TUBE 0.2 mg BID ESTER Administration Epoetin Selwyn-epbx 10,000 unit 05/28/20 18:00 06/08/20 17:24 Epoetin Selwyn-Epbx (Esrd) 10,000 Unit/Ml Vial IVP 10,000 unit MoWeFr ESTER Administration Fluconazole 200 mg 06/10/20 09:00 06/10/20 08:40 Fluconazole 100 Mg Tab PO 200 mg DAILY ESTER Administration Insulin Glargine 15 units/ 0.15 mls @ 0 mls/hr 06/04/20 09:00 06/10/20 08:41 Miscellaneous Medication SC 0.15 mls QAM ESTER Administration Meropenem 1 gm/ Device 50 mls @ 100 mls/hr 06/07/20 11:00 06/09/20 22:30 IVPB 50 mls 1100,2300 ESTER Administration Insulin Human Regular 0 units 05/13/20 09:28 06/10/20 05:54 Insulin Regular 300 Units/3 Ml Vial SC 2 unit .MODERATE SLIDING SC PRN Administration Moderate Correctional Scale Labetalol HCl 20 mg 05/12/20 05:37 05/29/20 11:27 Labetalol Hcl 100 Mg/20 Ml Vial SLOW IVP 20 mg Q4H PRN Administration SBP >170 Levetiracetam 500 mg 06/04/20 09:00 06/10/20 08:41 Levetiracetam 500 Mg Tab PER TUBE 500 mg BID ESTER Administration Mometasone Furoate/Formoterol Fumar 2 puff 05/09/20 18:30 06/10/20 08:38 Mometasone 200 Mcg/Formoterol 5 Mcg 120 Puff Inhaler INH 2 puff BID-RT ESTER Administration Ondansetron HCl 4 mg 05/03/20 17:50 05/23/20 16:00 Ondansetron Pf 4 Mg/2 Ml Vial IVP 4 mg Q6H PRN Administration Nausea/Vomiting Pantoprazole Sodium 40 mg 06/04/20 09:00 06/10/20 08:41 Pantoprazole 40 Mg Granules Packet PER TUBE 40 mg DAILY ESTER Administration Prednisone 20 mg 06/05/20 08:00 06/10/20 08:39 Prednisone 20 Mg Tab PO 20 mg QAM-WM ESTER Administration Sodium Chloride 10 ml 05/24/20 10:31 06/06/20 19:57 Flush - Normal Saline 10 Ml Syringe IVF 10 ml PRN PRN Administration Saline Flush Hospitalist Exam Vitals: Vital Signs (12 hours) Temp Pulse Resp BP Pulse Ox 06/10/20 04:00 99.4 F 65 17 155/72 H 100 06/10/20 02:14 98.3 F 06/09/20 23:49 65 16 162/78 H Weight Admit Weight 186 lb 4.8 oz Weight 197 lb 3.2 oz Most Recent Monitor Data Heart Rate from ECG 64 NIBP 136/65 NIBP BP-Mean 88 Respiration from ECG 14 SpO2 95 Neck: supple Heart: RRR Respiratory: no wheezes, no rales Gastrointestinal: soft, normal bowel sounds Gastrointestinal - other findings: peg tube Extremities: 1+ LE edema Hosp A/P - Plan (1) Pneumonia due to COVID-19 virus Code(s): U07.1 - COVID-19; J12.89 - OTHER VIRAL PNEUMONIA Status: Acute (2) Acute kidney injury superimposed on CKD Code(s): N17.9 - ACUTE KIDNEY FAILURE, UNSPECIFIED; N18.9 - CHRONIC KIDNEY DISEASE, UNSPECIFIED Status: Acute (3) Acute respiratory failure with hypoxia Code(s): J96.01 - ACUTE RESPIRATORY FAILURE WITH HYPOXIA Status: Acute (4) HTN (hypertension) Code(s): I10 - ESSENTIAL (PRIMARY) HYPERTENSION Status: Chronic Qualifiers: Hypertension type: essential hypertension Qualified Code(s): I10 - Essential (primary) hypertension (5) Dyslipidemia Code(s): E78.5 - HYPERLIPIDEMIA, UNSPECIFIED Status: Chronic (6) Peripheral neuropathy Code(s): G62.9 - POLYNEUROPATHY, UNSPECIFIED Status: Chronic Qualifiers: Peripheral neuropathy type: polyneuropathy, unspecified Qualified Code(s): G62.9 - Polyneuropathy, unspecified (7) Anemia of renal disease Code(s): D63.1 - ANEMIA IN CHRONIC KIDNEY DISEASE Status: Chronic (8) Metabolic acidosis Code(s): E87.2 - ACIDOSIS Status: Resolved - Plan is on high flow, continue dexamethasone. 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 on coreg and hydralazine, she also takes ambien chronically for insomnia at 10mg progressive worsening of renal function due to poor oral intake and likely contribution from covid, Creatinine around 2.5 at baseline is at high risk for complications with multiple comorbid conditions will need rehab/swing bed for dc plan, agrees to go to [facility] swing bed. off clonidine and is on lower dose coreg due to bradycardia with rates dipping into 40's which has resolved now. encourage po intake, is not eating much despite changing to regular diet patient has consented to talk to her daughter, d/w and gave full updates and guarded prognosis 05/10, 05/2020. 05/12 patient appeared little bit more confused today ABG indicated significant hypoxia. Her high flow was titrated accordingly per respiratory therapy. Patient continues not to eat very much. Patient encouraged to eat or drink supplements. Chest x-ray indicated worsening pneumonia. Worsening creatinine. We will hold all nephrotoxins. We will continue doxycycline and stop ceftriaxone. Patient started on a bicarb drip per nephrology. 05/13 pt was intubated on the night of 05/12. will continue current treatment. pt on steroids and abx. DVt ppx. H&H is low normal will continue to monitor 05/14 patient's urine output continues to decrease her creatinine continues to worsen. Patient may require dialysis. Patient's family called left message. Continue steroids for now. Patient received albumin. 05/15 patient continues to be intubated. She had a dialysis catheter placed today. We will continue steroids for now. Patient on DVT prophylaxis. 05/16 patient continues to be intubated. Dialysis catheter placed yesterday patient underwent dialysis. Not tolerating tube feeds will start patient on Reglan. Continue steroids for now. Will call family and update. 05/17 pt continues to be intubated. will continue dialysis for now. pt now tolerating her tube feeds. will continue to current tx and reglan. continue steroids for now. son Jimenez called and updated. pt's wbc elevated on broad abx for now. HH is 6.9 will monitor may need blood transfusion. 05/18 patient continues to be intubated. Will give 1 unit PRBC now. I did speak with the patient's son Jimenez yesterday updated him. Continues to have elevated WBCs patient on antibiotics. 05/19 patient continues to be intubated. H&H low stable 05/20 patient's son called and updated. Patient's oxygen saturations decreased to 40% FiO2. We will continue to monitor. H&H is low stable. Continues to have white count. We will continue antibiotics. 05/21 patient currently is doing well on 40% FiO2. Nurses decreasing sedation patient opening eyes but not following commands. H&H stable. 06/07Neurology was consulted on May 31 for concerns for possible seizures. On May 31 patient had a tunnel catheter, left subclavian central catheter, a PEG tube and a tracheostomy. Patient's left subclavian central line was removed. Patient was prophylactic started on Keppra for possible seizures. Patient just finished a course of antibiotics with Zosyn for Pseudomonas from her respiratory culture. She spiked a temperature last night blood cultures were done I will also send a sputum culture she has an elevated white count we will reconsult infectious disease and will start her on meropenem for now. will also get a cxr. pt now only has peg tube/trach and tunnel cath. Concern for line infect with tunnel cath. 06/08 we will continue current antibiotics. She continues to have a fever. We will touch base with infectious disease. She currently only has dialysis catheter in place. 06/09 patient's blood cultures indicates yeast. Spoke with infectious disease continue Diflucan for now. Will need to wait until yeast has been speciated. 06/10 pt's wbc improving. will continue current abx and antifungal. pt can go to LT[facility] once final cx comes back.
[2020-06-10] MEDS: MEROPENEM 1 GM/50 ML 1 GM in Premix Bag 1 BAG IVPB SCH ×2 (12:16→23:12)
--- NOTE | 2020-06-10 13:16 | PDOC.BPN ---
- Brief Progress Note Encounter Date: 06/10/20 Encounter Time: 13:15 Subjective: Patient is seen and examined in the room. No acute overnight events. She continues to be on one-on-one observation. Review of systems Gen.: No fever, no chills All the 14 systems reviewed except for the ones mentioned above are negative Physical examination Vital Signs Temp 99.5 F 06/10/20 12:10 Pulse 61 06/10/20 12:10 Resp 24 H 06/10/20 12:10 BP 138/68 06/10/20 12:10 Pulse Ox 98 06/10/20 12:10 Intake & Output 06/09/20 06/10/20 06/10/20 18:59 06:59 18:59 Intake Total 1370 237 Balance 1370 237 Intake: Intake, IV Amount 50 Tube Feeding 960 237 Tube Irrigant 360 Other: Voiding Method Diaper Diaper # Unmeasured Voids 0 # Bowel Movements 1 Constitutional: Not in pain or discomfort HEENT: Mucous membranes moist, no icterus Neck: Tracheostomy, right IJ dialysis catheter Heart: Regular rate and rhythm; no murmurs Lungs: Air entry equal bilateral; no wheezes Abdomen: Soft; non-tender; no guarding/tenderness/rebound Extremities: No calf tenderness; no ulcers, no bruises Neurological: Patient is awake, mooving limbs spontaneously Skin: No rash, no ulcers Psychological: Not agitate Labs and Imaging reviewed Laboratory Results - last 24 hr 06/09/20 06/09/20 06/10/20 17:41 23:42 04:42 WBC RBC Hgb Hct MCV MCH MCHC RDW Plt Count MPV Neutrophils % (Manual) Band Neuts % (Manual) Lymphocytes % (Manual) Monocytes % (Manual) Lymphocytes # Nucleated RBCs # (Man) Polychromasia Anisocytosis Schistocytes PT INR APTT Sodium Potassium Chloride Carbon Dioxide Anion Gap BUN Creatinine Estimated GFR (MDRD) Glucose POC Glucose 326 H 295 H 196 H Calcium 06/10/20 06/10/20 06/10/20 05:03 05:03 12:10 WBC 16.6 H RBC 3.08 L Hgb 9.2 L Hct 28.8 L MCV 93.4 MCH 30.0 MCHC 32.1 RDW 17.6 H Plt Count 243 MPV 8.5 Neutrophils % (Manual) 81 H Band Neuts % (Manual) 1 L Lymphocytes % (Manual) 10 L Monocytes % (Manual) 8 Lymphocytes # Not Reportable Nucleated RBCs # (Man) 1 H Polychromasia SLIGHT = 2-3 cells Anisocytosis SLIGHT = 6-15 cells Schistocytes SLIGHT = 2-5 cells PT INR APTT Sodium 136 Potassium 4.0 Chloride 98 Carbon Dioxide 23 Anion Gap 19 BUN 71 H Creatinine 4.64 H Estimated GFR (MDRD) 11 Glucose 204 H POC Glucose 202 H Calcium 8.7 06/10/20 15:44 WBC RBC Hgb Hct MCV MCH MCHC RDW Plt Count MPV Neutrophils % (Manual) Band Neuts % (Manual) Lymphocytes % (Manual) Monocytes % (Manual) Lymphocytes # Nucleated RBCs # (Man) Polychromasia Anisocytosis Schistocytes PT 13.6 INR 1.0 APTT 34.3 Sodium Potassium Chloride Carbon Dioxide Anion Gap BUN Creatinine Estimated GFR (MDRD) Glucose POC Glucose Calcium Active Medications Generic Name Dose Route Start Last Admin Trade Name Freq PRN Reason Stop Dose Admin Acetaminophen 650 mg 05/25/20 18:57 06/09/20 20:41 Acetaminophen 650 Mg/20.3 Ml Udcup PER TUBE 650 mg Q4H PRN Administration Fever > 101 Albuterol Sulfate 2 puff 05/05/20 03:59 05/05/20 07:40 Albuterol 200 Puff (6.7gm Inhaler) INH 2 puff [id number] PRN Administration Wheezing Amlodipine Besylate 10 mg 05/15/20 09:00 06/10/20 08:40 Amlodipine 10 Mg Tab PER TUBE 10 mg DAILY ESTER Administration Bisacodyl 10 mg 05/08/20 12:46 Bisacodyl 10 Mg Supp [place] DAILYPRN PRN Constipation Carvedilol 12.5 mg 06/08/20 21:00 06/10/20 08:40 Carvedilol 6.25 Mg Tab PER TUBE 12.5 mg BID ESTER Administration Clonidine 0.2 mg 05/27/20 21:00 06/10/20 08:40 Clonidine 0.2 Mg Tab PER TUBE 0.2 mg BID ESTER Administration Dextrose/Water 25 gm 05/13/20 09:28 Dextrose 50% Abboject 50 Ml Syringe SLOW IVP PRN PRN Hypoglycemia Epoetin Selwyn-epbx 10,000 unit 05/28/20 18:00 06/08/20 17:24 Epoetin Selwyn-Epbx (Esrd) 10,000 Unit/Ml Vial IVP 10,000 unit MoWeFr ESTER Administration Fluconazole 200 mg 06/10/20 09:00 06/10/20 08:40 Fluconazole 100 Mg Tab PO 200 mg DAILY ESTER Administration Glucagon 1 mg 05/13/20 09:28 Glucagon 1 Mg/Ml Vial IM PRN PRN Hypoglycemia Dextrose/Water 1,000 mls @ 0 mls/hr 05/13/20 09:28 D5w IV .Q0M PRN Hypoglycemia As Directed Insulin Glargine 15 units/ 0.15 mls @ 0 mls/hr 06/04/20 09:00 06/10/20 08:41 Miscellaneous Medication SC 0.15 mls QAM ESTER Administration Meropenem 1 gm/ Device 50 mls @ 100 mls/hr 06/07/20 11:00 06/10/20 12:16 IVPB 50 mls 1100,2300 ESTER Administration Insulin Human Regular 0 units 05/13/20 09:28 06/10/20 12:17 Insulin Regular 300 Units/3 Ml Vial SC 4 unit .MODERATE SLIDING SC PRN Administration Moderate Correctional Scale Labetalol HCl 20 mg 05/12/20 05:37 05/29/20 11:27 Labetalol Hcl 100 Mg/20 Ml Vial SLOW IVP 20 mg Q4H PRN Administration SBP >170 Levetiracetam 500 mg 06/04/20 09:00 06/10/20 08:41 Levetiracetam 500 Mg Tab PER TUBE 500 mg BID ESTER Administration Miscellaneous Medication 1 each 06/07/20 09:53 Pharmacy To Dose 1 Each IVPB PRN PRN Pharmacy to dose Mometasone Furoate/Formoterol Fumar 2 puff 05/09/20 18:30 06/10/20 08:38 Mometasone 200 Mcg/Formoterol 5 Mcg 120 Puff Inhaler INH 2 puff BID-RT ESTER Administration Ondansetron HCl 4 mg 05/03/20 17:50 05/23/20 16:00 Ondansetron Pf 4 Mg/2 Ml Vial IVP 4 mg Q6H PRN Administration Nausea/Vomiting Pantoprazole Sodium 40 mg 06/04/20 09:00 06/10/20 08:41 Pantoprazole 40 Mg Granules Packet PER TUBE 40 mg DAILY ESTER Administration Prednisone 20 mg 06/05/20 08:00 06/10/20 08:39 Prednisone 20 Mg Tab PO 20 mg QAM-WM ESTER Administration Sodium Chloride 10 ml 05/24/20 10:31 06/06/20 19:57 Flush - Normal Saline 10 Ml Syringe IVF 10 ml PRN PRN Administration Saline Flush Sodium Chloride 10 ml 05/25/20 09:56 Flush - Normal Saline 10 Ml Syringe IVF PRN PRN Saline Flush Assessment and plan Stage III/IV CKD Hypertension Anemia Pneumonia due to COVID-19 Anticipate dialysis in a.m. Medications reviewed, patient is on Diflucan along with meropenem. Patient's blood pressure is stable. Discussed with [facility]ERO
[2020-06-10 15:59] LABS: PTT 34.3 sec (22.9-36.1); Prothrombin Time 13.6 sec (12.0-14.7)
[2020-06-11] MEDS: Insulin Regular 300 UNITS/3 ML VIAL SC PRN ×2 (05:17→18:00)
[2020-06-11 06:10] LABS: #Basophils 0.1 thou/uL (0.0-0.2); #Eosinphils 0.1 thou/uL (0.0-0.7); #Lymphocytes 1.9 thou/uL (1.20-3.40); #Monocytes 0.9 thou/uL (0.11-0.59); #Neutrophils 13.5 thou/uL (1.40-6.50); %Basophils 0.4 % (0.0-1.0); %Eosinophils 0.5 % (0.0-10.0); %Lymphocytes 11.3 % (21.0-51.0); %Monocytes 5.7 % (0.0-10.0); %Neutrophils 82.1 % (42.0-75.0); Hemoglobin 9.3 g/dL (12.0-16.0); Mean Corpuscular HGB CONC 32.6 g/dL (32.0-36.0); Mean Corpuscular Hemoglobin 30.4 pg (27.0-31.0); Mean Corpuscular Volume 93.3 fL (78.0-98.0); Mean Platelet Volume 8.1 fL (7.4-10.4); Platelet Count 297 thou/uL (130-400); RBC Distribution Width 17.6 % (11.5-14.5); Red Blood Cell (RBC) Count 3.05 mill/uL (4.20-5.40); White Blood Cell (WBC) Count 16.4 thou/uL (4.8-10.8)
[2020-06-11 06:18] LABS: PTT 32.9 sec (22.9-36.1); Prothrombin Time 13.7 sec (12.0-14.7)
[2020-06-11 06:34] LABS: Anion Gap 20 mmol/L (10-20); BUN (Urea Nitrogen) 86 mg/dL (9.8-20.1); Calc. Creatinine Clearance 14 mL/min (70-130); Calcium 8.9 mg/dL (7.8-10.44); Carbon Dioxide 21 mmol/L (23-31); Chloride 96 mmol/L (98-107); Glucose 187 mg/dL (80-115); Potassium 4.1 mmol/L (3.5-5.1); Sodium 133 mmol/L (136-145)
[2020-06-11] MEDS: Mometasone 200 MCG/Formoterol 5 MCG 120 PUFF INHALER INH SCH ×2 (07:49→18:01)
[2020-06-11] MEDS: Carvedilol 6.25 MG TAB PER TUBE SCH ×2 (13:30→20:57)
[2020-06-11] MEDS: Pantoprazole 40 MG GRANULES PACKET PER TUBE SCH (13:30)
[2020-06-11] MEDS: predniSONE 20 MG TAB PO SCH (13:30)
[2020-06-11] MEDS: levETIRAcetam 500 MG TAB PER TUBE SCH ×2 (13:30→20:59)
[2020-06-11] MEDS: cloNIDine 0.2 MG TAB PER TUBE SCH ×2 (13:31→20:58)
[2020-06-11] MEDS: Amlodipine 10 MG TAB PER TUBE SCH (13:31)
[2020-06-11] MEDS: Fluconazole 100 MG TAB PO SCH (13:31)
[2020-06-11] MEDS: Insulin Glargine 15 UNITS in Pre-Filled Syringe 1 EACH SC SCH (13:32)
[2020-06-11] MEDS: MEROPENEM 1 GM/50 ML 1 GM in Premix Bag 1 BAG IVPB SCH ×2 (13:32→22:37)
--- NOTE | 2020-06-11 14:56 | PDOC.HOSPP ---
- Subjective Encounter Date: 06/11/20 Encounter Time: 10:15 Subjective: pt up in bed became very hypoxic. Rapid respond was called pt had a mucus plug. That was suctioned out and pt's oxygen sat improved. - Objective Vital Signs & Weight: Vital Signs (12 hours) Temp Pulse Resp BP Pulse Ox 06/11/20 11:00 100 06/11/20 07:50 98 06/11/20 07:49 59 L 20 98 06/11/20 03:39 98.7 F 60 24 H 137/65 99 Weight Admit Weight 186 lb 4.8 oz Weight 197 lb 3.2 oz Most Recent Monitor Data Heart Rate from ECG 64 NIBP 136/65 NIBP BP-Mean 88 Respiration from ECG 14 SpO2 95 I&O: 06/10/20 06/11/20 06/12/20 06:59 06:59 06:59 Intake Total 1607 2266 Output Total 0 Balance 1607 2266 Result Diagrams: 06/11/20 06:01 06/11/20 06:01 Additional Labs: Accuchecks 06/11/20 06/11/20 06/10/20 11:57 05:10 23:55 POC Glucose 134 H 198 H 293 H 06/10/20 18:02 POC Glucose 205 H Hospitalist ROS - Review of Systems Other: unable to obtain - Medication Medications: Active Medications Generic Name Dose Route Start Last Admin Trade Name Freq PRN Reason Stop Dose Admin Acetaminophen 650 mg 05/25/20 18:57 06/09/20 20:41 Acetaminophen 650 Mg/20.3 Ml Udcup PER TUBE 650 mg Q4H PRN Administration Fever > 101 Albuterol Sulfate 2 puff 05/05/20 03:59 05/05/20 07:40 Albuterol 200 Puff (6.7gm Inhaler) INH 2 puff [id number] PRN Administration Wheezing Amlodipine Besylate 10 mg 05/15/20 09:00 06/11/20 13:31 Amlodipine 10 Mg Tab PER TUBE 10 mg DAILY ESTER Administration Carvedilol 12.5 mg 06/08/20 21:00 06/11/20 13:30 Carvedilol 6.25 Mg Tab PER TUBE 12.5 mg BID ESTER Administration Clonidine 0.2 mg 05/27/20 21:00 06/11/20 13:31 Clonidine 0.2 Mg Tab PER TUBE 0.2 mg BID ESTER Administration Epoetin Selwyn-epbx 10,000 unit 05/28/20 18:00 06/08/20 17:24 Epoetin Selwyn-Epbx (Esrd) 10,000 Unit/Ml Vial IVP 10,000 unit MoWeFr ESTER Administration Fluconazole 200 mg 06/10/20 09:00 06/11/20 13:31 Fluconazole 100 Mg Tab PO 200 mg DAILY ESTER Administration Insulin Glargine 15 units/ 0.15 mls @ 0 mls/hr 06/04/20 09:00 06/11/20 13:32 Miscellaneous Medication SC 0.15 mls QAM ESTER Administration Meropenem 1 gm/ Device 50 mls @ 100 mls/hr 06/07/20 11:00 06/11/20 13:32 IVPB 50 mls 1100,2300 ESTER Administration Insulin Human Regular 0 units 05/13/20 09:28 06/11/20 05:17 Insulin Regular 300 Units/3 Ml Vial SC 2 unit .MODERATE SLIDING SC PRN Administration Moderate Correctional Scale Labetalol HCl 20 mg 05/12/20 05:37 05/29/20 11:27 Labetalol Hcl 100 Mg/20 Ml Vial SLOW IVP 20 mg Q4H PRN Administration SBP >170 Levetiracetam 500 mg 06/04/20 09:00 06/11/20 13:30 Levetiracetam 500 Mg Tab PER TUBE 500 mg BID ESTER Administration Mometasone Furoate/Formoterol Fumar 2 puff 05/09/20 18:30 06/11/20 07:49 Mometasone 200 Mcg/Formoterol 5 Mcg 120 Puff Inhaler INH 2 puff BID-RT ESTER Administration Ondansetron HCl 4 mg 05/03/20 17:50 05/23/20 16:00 Ondansetron Pf 4 Mg/2 Ml Vial IVP 4 mg Q6H PRN Administration Nausea/Vomiting Pantoprazole Sodium 40 mg 06/04/20 09:00 06/11/20 13:30 Pantoprazole 40 Mg Granules Packet PER TUBE 40 mg DAILY ESTER Administration Prednisone 20 mg 06/05/20 08:00 06/11/20 13:30 Prednisone 20 Mg Tab PO 20 mg QAM-WM ESTER Administration Sodium Chloride 10 ml 05/24/20 10:31 06/06/20 19:57 Flush - Normal Saline 10 Ml Syringe IVF 10 ml PRN PRN Administration Saline Flush Hospitalist Exam Vitals: Vital Signs (12 hours) Temp Pulse Resp BP Pulse Ox 06/11/20 11:00 100 06/11/20 07:50 98 06/11/20 07:49 59 L 20 98 06/11/20 03:39 98.7 F 60 24 H 137/65 99 Weight Admit Weight 186 lb 4.8 oz Weight 197 lb 3.2 oz Most Recent Monitor Data Heart Rate from ECG 64 NIBP 136/65 NIBP BP-Mean 88 Respiration from ECG 14 SpO2 95 Heart: RRR Respiratory: no wheezes, no ronchi Gastrointestinal: soft, non-tender, normal bowel sounds Extremities: 2+ LE edema Hosp A/P - Plan (1) Pneumonia due to COVID-19 virus Code(s): U07.1 - COVID-19; J12.89 - OTHER VIRAL PNEUMONIA Status: Acute (2) Acute kidney injury superimposed on CKD Code(s): N17.9 - ACUTE KIDNEY FAILURE, UNSPECIFIED; N18.9 - CHRONIC KIDNEY DISEASE, UNSPECIFIED Status: Acute (3) Acute respiratory failure with hypoxia Code(s): J96.01 - ACUTE RESPIRATORY FAILURE WITH HYPOXIA Status: Acute (4) HTN (hypertension) Code(s): I10 - ESSENTIAL (PRIMARY) HYPERTENSION Status: Chronic Qualifiers: Hypertension type: essential hypertension Qualified Code(s): I10 - Essential (primary) hypertension (5) Dyslipidemia Code(s): E78.5 - HYPERLIPIDEMIA, UNSPECIFIED Status: Chronic (6) Peripheral neuropathy Code(s): G62.9 - POLYNEUROPATHY, UNSPECIFIED Status: Chronic Qualifiers: Peripheral neuropathy type: polyneuropathy, unspecified Qualified Code(s): G62.9 - Polyneuropathy, unspecified (7) Anemia of renal disease Code(s): D63.1 - ANEMIA IN CHRONIC KIDNEY DISEASE Status: Chronic (8) Metabolic acidosis Code(s): E87.2 - ACIDOSIS Status: Resolved - Plan is on high flow, continue dexamethasone. 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 on coreg and hydralazine, she also takes ambien chronically for insomnia at 10mg progressive worsening of renal function due to poor oral intake and likely contribution from covid, Creatinine around 2.5 at baseline is at high risk for complications with multiple comorbid conditions will need rehab/swing bed for dc plan, agrees to go to [facility] swing bed. off clonidine and is on lower dose coreg due to bradycardia with rates dipping into 40's which has resolved now. encourage po intake, is not eating much despite changing to regular diet patient has consented to talk to her daughter, d/w and gave full updates and guarded prognosis 05/10, 05/2020. 05/12 patient appeared little bit more confused today ABG indicated significant hypoxia. Her high flow was titrated accordingly per respiratory therapy. Patient continues not to eat very much. Patient encouraged to eat or drink vides pplements. Chest x-ray indicated worsening pneumonia. Worsening creatinine. We will hold all nephrotoxins. We will continue doxycycline and stop ceftriaxone. Patient started on a bicarb drip per nephrology. 05/13 pt was intubated on the night of 05/12. will continue current treatment. pt on steroids and abx. DVt ppx. H&H is low normal will continue to monitor 05/14 patient's urine output continues to decrease her creatinine continues to worsen. Patient may require dialysis. Patient's family called left message. Continue steroids for now. Patient received albumin. 05/15 patient continues to be intubated. She had a dialysis catheter placed today. We will continue steroids for now. Patient on DVT prophylaxis. 05/16 patient continues to be intubated. Dialysis catheter placed yesterday patient underwent dialysis. Not tolerating tube feeds will start patient on Reglan. Continue steroids for now. Will call family and update. 05/17 pt continues to be intubated. will continue dialysis for now. pt now tolerating her tube feeds. will continue to current tx and reglan. continue steroids for now. son Jimenez called and updated. pt's wbc elevated on broad abx for now. HH is 6.9 will monitor may need blood transfusion. 05/18 patient continues to be intubated. Will give 1 unit PRBC now. I did speak with the patient's son Jimenez yesterday updated him. Continues to have elevated WBCs patient on antibiotics. 05/19 patient continues to be intubated. H&H low stable 05/20 patient's son called and updated. Patient's oxygen saturations decreased to 40% FiO2. We will continue to monitor. H&H is low stable. Continues to have white count. We will continue antibiotics. 05/21 patient currently is doing well on 40% FiO2. Nurses decreasing sedation patient opening eyes but not following commands. H&H stable. 06/07Neurology was consulted on May 31 for concerns for possible seizures. On May 31 patient had a tunnel catheter, left subclavian central catheter, a PEG tube and a tracheostomy. Patient's left subclavian central line was removed. Patient was prophylactic started on Keppra for possible seizures. Patient just finished a course of antibiotics with Zosyn for Pseudomonas from her respiratory culture. She spiked a temperature last night blood cultures were done I will also send a sputum culture she has an elevated white count we will reconsult infectious disease and will start her on meropenem for now. will also get a cxr. pt now only has peg tube/trach and tunnel cath. Concern for line infect with tunnel cath. 06/08 we will continue current antibiotics. She continues to have a fever. We will touch base with infectious disease. She currently only has dialysis catheter in place. 06/09 patient's blood cultures indicates yeast. Spoke with infectious disease continue Diflucan for now. Will need to wait until yeast has been speciated. 06/10 pt's wbc improving. will continue current abx and antifungal. pt can go to LTAC once final cx comes back. 06/11 pt's wbc improving, no fever. pt had rapid response for hypoxia. pt had mucus plug was noted on monitor to have st elevation. Ekg done which did not show ST elevation. ST elevation was most likely transient. will check trops and monitor. Nadeem perez called and updated. Son wanted pt to be on tramadol since he feels that at times she has pain and tylenol is not enough and would require more pain meds.
--- NOTE | 2020-06-11 16:09 | PRG ---
DATE OF SERVICE: 06/11/2020 SUBJECTIVE: The patient was seen and examined at bedside. The patient remains nonverbal and on trach collar. OBJECTIVE: GENERAL: This is an elderly female, in no apparent distress. Not responsive. VITAL SIGNS: Temperature 98.7, pulse 59, respiratory rate 20, blood pressure 197/78. HEENT: Atraumatic, normocephalic. NECK: With trach collar. CV: S1 and S2 heard. RESPIRATORY: Clear. GI: Abdomen is soft. MUSCULOSKELETAL: No edema. LABORATORY DATA: Potassium 4.1, BUN is 86, creatinine is 5.3. ASSESSMENT AND PLAN: 1. End Stage Renal Disease - HD dependent. will continue HD MWF as tolerated. 2. Hypertension. 3. Anemia of chronic disease. 4. Pneumonia. 5. COVID-19 infection. 6. Acute hypoxic respiratory failure. 7. Altered mentation. Continue dialysis as tolerated. We will follow. Job ID: [id number] MTDD
--- NOTE | 2020-06-11 17:57 | EKG ---
Test Reason : AFTER CODE GREEN Blood Pressure : / mmHG Vent. Rate : 068 BPM Atrial Rate : 068 BPM P-R Int : 136 ms QRS Dur : 116 ms QT Int : 438 ms P-R-T Axes : 000 -40 013 degrees QTc Int : 465 ms Normal sinus rhythm Left axis deviation Left ventricular hypertrophy with QRS widening Abnormal ECG When compared with ECG of 01-MAY-2020 20:15, Incomplete right bundle branch block is no longer Present Minimal criteria for Septal infarct are no longer Present Confirmed by DR. Ruslan CAMP ([id number]) on 06/11/2020 5:57:09 PM Referred By: STEPHON Confirmed By:DR. Ruslan CAMP
[2020-06-11] MEDS: EPOETIN ALFA-EPBX (ESRD) 10,000 UNIT/ML VIAL IVP SCH (18:39)
[2020-06-12] MEDS: Insulin Regular 300 UNITS/3 ML VIAL SC PRN ×3 (05:55→18:30)
[2020-06-12] MEDS: Mometasone 200 MCG/Formoterol 5 MCG 120 PUFF INHALER INH SCH ×2 (06:44→18:32)
[2020-06-12 06:56] LABS: PTT 30.4 sec (22.9-36.1); Prothrombin Time 13.8 sec (12.0-14.7)
[2020-06-12 06:58] LABS: #Lymphocytes 1.7 thou/uL (1.20-3.40); #Monocytes 0.8 thou/uL (0.11-0.59); #Neutrophils 12.4 thou/uL (1.40-6.50); %Basophils 0.3 % (0.0-1.0); %Eosinophils 0.3 % (0.0-10.0); %Monocytes 5.6 % (0.0-10.0); %Neutrophils 82.9 % (42.0-75.0); Hemoglobin 9.8 g/dL (12.0-16.0); Mean Corpuscular HGB CONC 32.5 g/dL (32.0-36.0); Mean Corpuscular Hemoglobin 30.9 pg (27.0-31.0); Mean Corpuscular Volume 95.1 fL (78.0-98.0); Mean Platelet Volume 8.4 fL (7.4-10.4); Platelet Count 261 thou/uL (130-400); RBC Distribution Width 17.4 % (11.5-14.5); Red Blood Cell (RBC) Count 3.15 mill/uL (4.20-5.40)
[2020-06-12 07:15] LABS: Anion Gap 19 mmol/L (10-20); BUN (Urea Nitrogen) 50 mg/dL (9.8-20.1); Calc. Creatinine Clearance 18 mL/min (70-130); Calcium 8.6 mg/dL (7.8-10.44); Carbon Dioxide 25 mmol/L (23-31); Chloride 95 mmol/L (98-107); Glucose 166 mg/dL (80-115); Potassium 4.5 mmol/L (3.5-5.1); Sodium 134 mmol/L (136-145)
[2020-06-12] MEDS: Carvedilol 6.25 MG TAB PER TUBE SCH ×2 (08:23→20:12)
[2020-06-12] MEDS: Amlodipine 10 MG TAB PER TUBE SCH (08:23)
[2020-06-12] MEDS: cloNIDine 0.2 MG TAB PER TUBE SCH ×2 (08:23→20:12)
[2020-06-12] MEDS: predniSONE 20 MG TAB PO SCH (08:23)
[2020-06-12] MEDS: Fluconazole 100 MG TAB PO SCH (08:24)
[2020-06-12] MEDS: levETIRAcetam 500 MG TAB PER TUBE SCH ×2 (08:24→20:13)
[2020-06-12] MEDS: Pantoprazole 40 MG GRANULES PACKET PER TUBE SCH (08:24)
[2020-06-12] MEDS: Insulin Glargine 15 UNITS in Pre-Filled Syringe 1 EACH SC SCH (08:28)
[2020-06-12] MEDS: MEROPENEM 1 GM/50 ML 1 GM in Premix Bag 1 BAG IVPB SCH ×2 (12:25→22:38)
--- NOTE | 2020-06-12 18:04 | PDOC.HOSPP ---
- Subjective Encounter Date: 06/12/20 Encounter Time: 10:30 Subjective: pt up in bed following commands today. - Objective Vital Signs & Weight: Vital Signs (12 hours) Temp Pulse Pulse Pulse Resp BP BP 06/12/20 16:46 06/12/20 16:06 98.8 F 61 20 06/12/20 11:27 98.6 F 57 L 20 06/12/20 09:50 06/12/20 09:23 64 63 159/75 H 167/77 H 06/12/20 08:09 06/12/20 08:00 97.8 F 60 17 06/12/20 06:44 62 20 BP BP Pulse Ox Pulse Ox 06/12/20 16:46 99 06/12/20 16:06 138/63 99 06/12/20 11:27 145/69 H 100 06/12/20 09:50 100 06/12/20 09:23 98 06/12/20 08:09 99 06/12/20 08:00 154/72 H 100 06/12/20 06:44 98 Weight Admit Weight 186 lb 4.8 oz Weight 188 lb 3.2 oz Most Recent Monitor Data Heart Rate from ECG 64 NIBP 136/65 NIBP BP-Mean 88 Respiration from ECG 14 SpO2 95 I&O: 06/11/20 06/12/20 06/13/20 06:59 06:59 06:59 Intake Total 2266 1021 Output Total 0 Balance 2266 1021 Result Diagrams: 06/12/20 06:09 06/12/20 06:09 Additional Labs: Accuchecks 06/12/20 06/12/20 06/12/20 11:00 05:40 00:37 POC Glucose 176 H 184 H 212 H Hospitalist ROS - Review of Systems Other: unable to obtain - Medication Medications: Active Medications Generic Name Dose Route Start Last Admin Trade Name Freq PRN Reason Stop Dose Admin Acetaminophen 650 mg 05/25/20 18:57 06/09/20 20:41 Acetaminophen 650 Mg/20.3 Ml Udcup PER TUBE 650 mg Q4H PRN Administration Fever > 101 Albuterol Sulfate 2 puff 05/05/20 03:59 05/05/20 07:40 Albuterol 200 Puff (6.7gm Inhaler) INH 2 puff [id number] PRN Administration Wheezing Amlodipine Besylate 10 mg 05/15/20 09:00 06/12/20 08:23 Amlodipine 10 Mg Tab PER TUBE 10 mg DAILY ESTER Administration Carvedilol 12.5 mg 06/08/20 21:00 06/12/20 08:23 Carvedilol 6.25 Mg Tab PER TUBE 12.5 mg BID ESTER Administration Clonidine 0.2 mg 05/27/20 21:00 06/12/20 08:23 Clonidine 0.2 Mg Tab PER TUBE 0.2 mg BID ESTER Administration Epoetin Selwyn-epbx 10,000 unit 05/28/20 18:00 06/11/20 18:39 Epoetin Selwyn-Epbx (Esrd) 10,000 Unit/Ml Vial IVP 10,000 unit MoWeFr ESTER Administration Fluconazole 200 mg 06/10/20 09:00 06/12/20 08:24 Fluconazole 100 Mg Tab PO 200 mg DAILY ESTER Administration Insulin Glargine 15 units/ 0.15 mls @ 0 mls/hr 06/04/20 09:00 06/12/20 08:28 Miscellaneous Medication SC 0.15 mls QAM ESTER Administration Meropenem 1 gm/ Device 50 mls @ 100 mls/hr 06/07/20 11:00 06/12/20 12:25 IVPB 50 mls 1100,2300 ESTER Administration Insulin Human Regular 0 units 05/13/20 09:28 06/12/20 12:30 Insulin Regular 300 Units/3 Ml Vial SC 2 unit .MODERATE SLIDING SC PRN Administration Moderate Correctional Scale Labetalol HCl 20 mg 05/12/20 05:37 05/29/20 11:27 Labetalol Hcl 100 Mg/20 Ml Vial SLOW IVP 20 mg Q4H PRN Administration SBP >170 Levetiracetam 500 mg 06/04/20 09:00 06/12/20 08:24 Levetiracetam 500 Mg Tab PER TUBE 500 mg BID ESTER Administration Mometasone Furoate/Formoterol Fumar 2 puff 05/09/20 18:30 06/12/20 06:44 Mometasone 200 Mcg/Formoterol 5 Mcg 120 Puff Inhaler INH 2 puff BID-RT ESTER Administration Ondansetron HCl 4 mg 05/03/20 17:50 05/23/20 16:00 Ondansetron Pf 4 Mg/2 Ml Vial IVP 4 mg Q6H PRN Administration Nausea/Vomiting Pantoprazole Sodium 40 mg 06/04/20 09:00 06/12/20 08:24 Pantoprazole 40 Mg Granules Packet PER TUBE 40 mg DAILY ESTER Administration Prednisone 20 mg 06/05/20 08:00 06/12/20 08:23 Prednisone 20 Mg Tab PO 20 mg QAM-WM ESTER Administration Sodium Chloride 10 ml 05/24/20 10:31 06/06/20 19:57 Flush - Normal Saline 10 Ml Syringe IVF 10 ml PRN PRN Administration Saline Flush Hospitalist Exam Vitals: Vital Signs (12 hours) Temp Pulse Pulse Pulse Resp BP BP 06/12/20 16:46 06/12/20 16:06 98.8 F 61 20 06/12/20 11:27 98.6 F 57 L 20 06/12/20 09:50 06/12/20 09:23 64 63 159/75 H 167/77 H 06/12/20 08:09 06/12/20 08:00 97.8 F 60 17 06/12/20 06:44 62 20 BP BP Pulse Ox Pulse Ox 06/12/20 16:46 99 06/12/20 16:06 138/63 99 06/12/20 11:27 145/69 H 100 06/12/20 09:50 100 06/12/20 09:23 98 06/12/20 08:09 99 06/12/20 08:00 154/72 H 100 06/12/20 06:44 98 Weight Admit Weight 186 lb 4.8 oz Weight 188 lb 3.2 oz Most Recent Monitor Data Heart Rate from ECG 64 NIBP 136/65 NIBP BP-Mean 88 Respiration from ECG 14 SpO2 95 Neck: supple, no thyromegaly Heart: RRR, no murmur, no gallops Respiratory: no wheezes, no rales Gastrointestinal: soft, non-tender, normal bowel sounds Extremities: 2+ LE edema Hosp A/P - Plan (1) Pneumonia due to COVID-19 virus Code(s): U07.1 - COVID-19; J12.89 - OTHER VIRAL PNEUMONIA Status: Acute (2) Acute kidney injury superimposed on CKD Code(s): N17.9 - ACUTE KIDNEY FAILURE, UNSPECIFIED; N18.9 - CHRONIC KIDNEY DISEASE, UNSPECIFIED Status: Acute (3) Acute respiratory failure with hypoxia Code(s): J96.01 - ACUTE RESPIRATORY FAILURE WITH HYPOXIA Status: Acute (4) HTN (hypertension) Code(s): I10 - ESSENTIAL (PRIMARY) HYPERTENSION Status: Chronic Qualifiers: Hypertension type: essential hypertension Qualified Code(s): I10 - Esse ntial (primary) hypertension (5) Dyslipidemia Code(s): E78.5 - HYPERLIPIDEMIA, UNSPECIFIED Status: Chronic (6) Peripheral neuropathy Code(s): G62.9 - POLYNEUROPATHY, UNSPECIFIED Status: Chronic Qualifiers: Peripheral neuropathy type: polyneuropathy, unspecified Qualified Code(s): G62.9 - Polyneuropathy, unspecified (7) Anemia of renal disease Code(s): D63.1 - ANEMIA IN CHRONIC KIDNEY DISEASE Status: Chronic (8) Metabolic acidosis Code(s): E87.2 - ACIDOSIS Status: Resolved - Plan is on high flow, continue dexamethasone. 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 on coreg and hydralazine, she also takes ambien chronically for insomnia at 10mg progressive worsening of renal function due to poor oral intake and likely contr ibution from covid, Creatinine around 2.5 at baseline is at high risk for complications with multiple comorbid conditions will need rehab/swing bed for dc plan, agrees to go to [facility] swing bed. off clonidine and is on lower dose coreg due to bradycardia with rates dipping into 40's which has resolved now. encourage po intake, is not eating much despite changing to regular diet patient has consented to talk to her daughter, d/w and gave full updates and guarded prognosis 05/10, 05/2020. / patient appeared little bit more confused today ABG indicated significant hypoxia. Her high flow was titrated accordingly per respiratory therapy. Patient continues not to eat very much. Patient encouraged to eat or drink supplements. Chest x-ray indicated worsening pneumonia. Worsening creatinine. We will hold all nephrotoxins. We will continue doxycycline and stop ceftriaxone. Patient started on a bicarb drip per nephrology. 05/13 pt was intubated on the night of 05/12. will continue current treatment. pt on steroids and abx. DVt ppx. H&H is low normal will continue to monitor 05/14 patient's urine output continues to decrease her creatinine continues to worsen. Patient may require dialysis. Patient's family called left message. Continue steroids for now. Patient received albumin. 05/15 patient continues to be intubated. She had a dialysis catheter placed today. We will continue steroids for now. Patient on DVT prophylaxis. 05/16 patient continues to be intubated. Dialysis catheter placed yesterday patient underwent dialysis. Not tolerating tube feeds will start patient on Reglan. Continue steroids for now. Will call family and update. 05/17 pt continues to be intubated. will continue dialysis for now. pt now tolerating her tube feeds. will continue to current tx and reglan. continue steroids for now. son Jimenez called and updated. pt's wbc elevated on broad abx for now. HH is 6.9 will monitor may need blood transfusion. 05/18 patient continues to be intubated. Will give 1 unit PRBC now. I did speak with the patient's son Jimenez yesterday updated him. Continues to have elevated WBCs patient on antibiotics. 05/19 patient continues to be intubated. H&H low stable 05/20 patient's son called and updated. Patient's oxygen saturations decreased to 40% FiO2. We will continue to monitor. H&H is low stable. Continues to have white count. We will continue antibiotics. 05/21 patient currently is doing well on 40% FiO2. Nurses decreasing sedation patient opening eyes but not following commands. H&H stable. 06/07Neurology was consulted on May 31 for concerns for possible seizures. On May 31 patient had a tunnel catheter, left subclavian central catheter, a PEG tube and a tracheostomy. Patient's left subclavian central line was removed. Patient was prophylactic started on Keppra for possible seizures. Patient just finished a course of antibiotics with Zosyn for Pseudomonas from her respiratory culture. She spiked a temperature last night blood cultures were done I will also send a sputum culture she has an elevated white count we will reconsult infectious disease and will start her on meropenem for now. will also get a cxr. pt now only has peg tube/trach and tunnel cath. Concern for line infect with tunnel cath. 06/08 we will continue current antibiotics. She continues to have a fever. We will touch base with infectious disease. She currently only has dialysis catheter in place. 06/09 patient's blood cultures indicates yeast. Spoke with infectious disease continue Diflucan for now. Will need to wait until yeast has been speciated. 06/10 pt's wbc improving. will continue current abx and antifungal. pt can go to LTAC once final cx comes back. 06/11 pt's wbc improving, no fever. pt had rapid response for hypoxia. pt had mucus plug was noted on monitor to have st elevation. Ekg done which did not show ST elevation. ST elevation was most likely transient. will check trops and monitor. Son jimenez called and updated. Son wanted pt to be on tramadol since he feels that at times she has pain and tylenol is not enough and would require more pain meds. 06/12 pt more awake today and following commands slowly. will continue iv abx and antifungal. pt ready to go to LTAC. pillowcase folder notified.
[2020-06-12] MEDS: traMADol HCl 50 MG TAB PO PRN (22:58)
[2020-06-13 07:24] LABS: Anion Gap 15 mmol/L (10-20); BUN (Urea Nitrogen) 16 mg/dL (9.8-20.1); Calc. Creatinine Clearance 101 mL/min (70-130); Calcium 8.1 mg/dL (7.8-10.44); Carbon Dioxide 20 mmol/L (23-31); Chloride 107 mmol/L (98-107); Glucose 116 mg/dL (80-115); Potassium 3.7 mmol/L (3.5-5.1); Sodium 138 mmol/L (136-145)
--- NOTE | 2020-06-13 08:16 | PRG ---
DATE OF SERVICE: 06/12/2020 SUBJECTIVE: The patient is seen and examined at bedside. Sitter at the bedside and the patient is nonverbal. OBJECTIVE: GENERAL: This is an elderly female, in no apparent distress. VITAL SIGNS: Temperature Afebrile, pulse 67, respiratory rate 20, and blood pressure 159/75. HEENT: Atraumatic, normocephalic. CV: S1 and S2 heard. RESPIRATORY: Clear. MUSCULOSKELETAL: No edema. LABORATORY DATA: Potassium 4.5, BUN is 50, and creatinine is 3.93. ASSESSMENT AND PLAN: 1. End-stage renal disease, remains on dialysis. 2. Hypertension. 3. Anemia of chronic disease. 4. H/o Pneumonia secondary to COVID-19 infection. 5. Acute hypoxic respiratory failure. 6. Altered mentation. Plan to have dialysis as tolerated on Thursday, Thursday, and Thursday. Job ID: [id number] MTDD
[2020-06-13] MEDS: Mometasone 200 MCG/Formoterol 5 MCG 120 PUFF INHALER INH SCH ×2 (08:38→18:23)
[2020-06-13] MEDS: predniSONE 20 MG TAB PO SCH (08:38)
[2020-06-13] MEDS: Fluconazole 100 MG TAB PO SCH (08:38)
[2020-06-13] MEDS: levETIRAcetam 500 MG TAB PER TUBE SCH ×2 (08:39→21:24)
[2020-06-13] MEDS: Pantoprazole 40 MG GRANULES PACKET PER TUBE SCH (08:39)
[2020-06-13] MEDS: Insulin Glargine 15 UNITS in Pre-Filled Syringe 1 EACH SC SCH (09:30)
[2020-06-13] MEDS ORDERED: Heparin 10,000 UNITS/ 10 ML VIAL ONE (09:51)
[2020-06-13] MEDS: cloNIDine 0.2 MG TAB PER TUBE SCH ×2 (10:05→21:24)
[2020-06-13] MEDS: Carvedilol 6.25 MG TAB PER TUBE SCH ×2 (10:05→21:24)
[2020-06-13] MEDS: Amlodipine 10 MG TAB PER TUBE SCH (10:05)
[2020-06-13 10:34] LABS: PTT 26.8 sec (22.9-36.1)
[2020-06-13 11:32] VITALS: BMI 29.5
[2020-06-13] MEDS: EPOETIN ALFA-EPBX (ESRD) 10,000 UNIT/ML VIAL IVP SCH (12:00)
[2020-06-13] MEDS ORDERED: Sodium Bicarbonate Tab 325 MG TAB PER TUBE PRN (13:45)
[2020-06-13] MEDS ORDERED: Pancrelipase DR 12,000 1 CAP FS PRN (13:45)
--- NOTE | 2020-06-13 13:50 | PDOC.HOSPP ---
- Subjective Encounter Date: 06/13/20 Encounter Time: 10:55 Subjective: pt up in bed getting her dialysis. - Objective Vital Signs & Weight: Vital Signs (12 hours) Temp Pulse Resp BP Pulse Ox 06/13/20 11:40 98.4 F 58 L 20 129/69 100 06/13/20 09:21 99 06/13/20 08:15 98.4 F 60 20 132/62 100 Weight Admit Weight 186 lb 4.8 oz Weight 188 lb 3.2 oz Most Recent Monitor Data Heart Rate from ECG 64 NIBP 136/65 NIBP BP-Mean 88 Respiration from ECG 14 SpO2 95 I&O: 06/12/20 06/13/20 06/14/20 06:59 06:59 06:59 Intake Total 1021 1705 267 Output Total 0 Balance 1021 1705 267 Result Diagrams: 06/12/20 06:09 06/13/20 03:30 Additional Labs: Accuchecks 06/13/20 06/13/20 06/12/20 11:39 06:07 23:52 POC Glucose 132 H 161 H 223 H 06/12/20 18:02 POC Glucose 336 H Hospitalist ROS - Review of Systems Other: unable to verbalize - Medication Medications: Active Medications Generic Name Dose Route Start Last Admin Trade Name Freq PRN Reason Stop Dose Admin Acetaminophen 650 mg 05/25/20 18:57 06/09/20 20:41 Acetaminophen 650 Mg/20.3 Ml Udcup PER TUBE 650 mg Q4H PRN Administration Fever > 101 Albuterol Sulfate 2 puff 05/05/20 03:59 05/05/20 07:40 Albuterol 200 Puff (6.7gm Inhaler) INH 2 puff [id number] PRN Administration Wheezing Amlodipine Besylate 10 mg 05/15/20 09:00 06/13/20 10:05 Amlodipine 10 Mg Tab PER TUBE Not Given DAILY ESTER Carvedilol 12.5 mg 06/08/20 21:00 06/13/20 10:05 Carvedilol 6.25 Mg Tab PER TUBE Not Given BID ESTER Clonidine 0.2 mg 05/27/20 21:00 06/13/20 10:05 Clonidine 0.2 Mg Tab PER TUBE Not Given BID ESTER Epoetin Selwyn-epbx 10,000 unit 05/28/20 18:00 06/13/20 09:31 Epoetin Selwyn-Epbx (Esrd) 10,000 Unit/Ml Vial IVP 10,000 unit MoWeFr ESTER Administration Fluconazole 200 mg 06/10/20 09:00 06/13/20 08:38 Fluconazole 100 Mg Tab PO 200 mg DAILY ESTER Administration Insulin Glargine 15 units/ 0.15 mls @ 0 mls/hr 06/04/20 09:00 06/13/20 09:30 Miscellaneous Medication SC 0.15 mls QAM ESTER Administration Meropenem 1 gm/ Device 50 mls @ 100 mls/hr 06/07/20 11:00 06/12/20 22:38 IVPB 50 mls 1100,2300 ESTER Administration Insulin Human Regular 0 units 05/13/20 09:28 06/12/20 18:30 Insulin Regular 300 Units/3 Ml Vial SC 6 unit .MODERATE SLIDING SC PRN Administration Moderate Correctional Scale Labetalol HCl 20 mg 05/12/20 05:37 05/29/20 11:27 Labetalol Hcl 100 Mg/20 Ml Vial SLOW IVP 20 mg Q4H PRN Administration SBP >170 Levetiracetam 500 mg 06/04/20 09:00 06/13/20 08:39 Levetiracetam 500 Mg Tab PER TUBE 500 mg BID ESTER Administration Mometasone Furoate/Formoterol Fumar 2 puff 05/09/20 18:30 06/13/20 08:38 Mometasone 200 Mcg/Formoterol 5 Mcg 120 Puff Inhaler INH 2 puff BID-RT ESTER Administration Ondansetron HCl 4 mg 05/03/20 17:50 05/23/20 16:00 Ondansetron Pf 4 Mg/2 Ml Vial IVP 4 mg Q6H PRN Administration Nausea/Vomiting Pantoprazole Sodium 40 mg 06/04/20 09:00 06/13/20 08:39 Pantoprazole 40 Mg Granules Packet PER TUBE 40 mg DAILY ESTER Administration Prednisone 20 mg 06/05/20 08:00 06/13/20 08:38 Prednisone 20 Mg Tab PO 20 mg QAM-WM ESTER Administration Sodium Chloride 10 ml 05/24/20 10:31 06/13/20 08:39 Flush - Normal Saline 10 Ml Syringe IVF 10 ml PRN PRN Administration Saline Flush Tramadol HCl 50 mg 06/11/20 14:53 06/12/20 22:58 Tramadol Hcl 50 Mg Tab PO 50 mg Q8H PRN Administration Pain Hospitalist Exam Vitals: Vital Signs (12 hours) Temp Pulse Resp BP Pulse Ox 06/13/20 11:40 98.4 F 58 L 20 129/69 100 06/13/20 09:21 99 06/13/20 08:15 98.4 F 60 20 132/62 100 Weight Admit Weight 186 lb 4.8 oz Weight 188 lb 3.2 oz Most Recent Monitor Data Heart Rate from ECG 64 NIBP 136/65 NIBP BP-Mean 88 Respiration from ECG 14 SpO2 95 Neck: supple Heart: RRR, no murmur, no gallops Respiratory: no wheezes, no rales, no ronchi Gastrointestinal: soft, non-tender, normal bowel sounds Hosp A/P - Plan (1) Pneumonia due to COVID-19 virus Code(s): U07.1 - COVID-19; J12.89 - OTHER VIRAL PNEUMONIA Status: Acute (2) Acute kidney injury superimposed on CKD Code(s): N17.9 - ACUTE KIDNEY FAILURE, UNSPECIFIED; N18.9 - CHRONIC KIDNEY DISEASE, UNSPECIFIED Status: Acute (3) Acute respiratory failure with hypoxia Code(s): J96.01 - ACUTE RESPIRATORY FAILURE WITH HYPOXIA Status: Acute (4) HTN (hypertension) Code(s): I10 - ESSENTIAL (PRIMARY) HYPERTENSION Status: Chronic Qualifiers: Hypertension type: essential hypertension Qualified Code(s): I10 - Essential (primary) hypertension (5) Dyslipidemia Code(s): E78.5 - HYPERLIPIDEMIA, UNSPECIFIED Status: Chronic (6) Peripheral neuropathy Code(s): G62.9 - POLYNEUROPATHY, UNSPECIFIED Status: Chronic Qualifiers: Peripheral neuropathy type: polyneuropathy, unspecified Qualified Code(s): G62.9 - Polyneuropathy, unspecified (7) Anemia of renal disease Code(s): D63.1 - ANEMIA IN CHRONIC KIDNEY DISEASE Status: Chronic (8) Metabolic acidosis Code(s): E87.2 - ACIDOSIS Status: Resolved - Plan is on high flow, continue dexamethasone. 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 on coreg and hydralazine, she also takes ambien chronically for insomnia at 10mg progressive worsening of renal function due to poor oral intake and likely contribution from covid, Creatinine around 2.5 at baseline is at high risk for complications with multiple comorbid conditions will need rehab/swing bed for dc plan, agrees to go to [place] swing bed. off clonidine and is on lower dose coreg due to bradycardia with rates dipping into 40's which has resolved now. encourage po intake, is not eating much despite changing to regular diet patient has consented to talk to her daughter, d/w and gave full updates and guarded prognosis 05/10, 05/2020. 05/12 patient appeared little bit more confused today ABG indicated significant hypoxia. Her high flow was titrated accordingly per respiratory therapy. Patient continues not to eat very much. Patient encouraged to eat or drink sup plements. Chest x-ray indicated worsening pneumonia. Worsening creatinine. We will hold all nephrotoxins. We will continue doxycycline and stop ceftriaxone. Patient started on a bicarb drip per nephrology. 05/13 pt was intubated on the night of 05/12. will continue current treatment. pt on steroids and abx. DVt ppx. H&H is low normal will continue to monitor 05/14 patient's urine output continues to decrease her creatinine continues to worsen. Patient may require dialysis. Patient's family called left message. Continue steroids for now. Patient received albumin. 05/15 patient continues to be intubated. She had a dialysis catheter placed today. We will continue steroids for now. Patient on DVT prophylaxis. 05/16 patient continues to be intubated. Dialysis catheter placed yesterday p atient underwent dialysis. Not tolerating tube feeds will start patient on Reglan. Continue steroids for now. Will call family and update. 05/17 pt continues to be intubated. will continue dialysis for now. pt now tolerating her tube feeds. will continue to current tx and reglan. continue steroids for now. son Jimenez called and updated. pt's wbc elevated on broad abx for now. HH is 6.9 will monitor may need blood transfusion. 05/18 patient continues to be intubated. Will give 1 unit PRBC now. I did speak with the patient's son Jimenez yesterday updated him. Continues to have elevated WBCs patient on antibiotics. 05/19 patient continues to be intubated. H&H low stable 05/20 patient's son called and updated. Patient's oxygen saturations decreased to 40% FiO2. We will continue to monitor. H&H is low stable. Continues to have white count. We will continue antibiotics. 05/21 patient currently is doing well on 40% FiO2. Nurses decreasing sedation patient opening eyes but not following commands. H&H stable. 06/07Neurology was consulted on May 31 for concerns for possible seizures. On May 31 patient had a tunnel catheter, left subclavian central catheter, a PEG tube and a tracheostomy. Patient's left subclavian central line was removed. Patient was prophylactic started on Keppra for possible seizures. Patient just finished a course of antibiotics with Zosyn for Pseudomonas from her respiratory culture. She spiked a temperature last night blood cultures were done I will also send a sputum culture she has an elevated white count we will reconsult infectious disease and will start her on meropenem for now. will also get a cxr. pt now only has peg tube/trach and tunnel cath. Concern for line infect with tunnel cath. 06/08 we will continue current antibiotics. She continues to have a fever. We will touch base with infectious disease. She currently only has dialysis catheter in place. 06/09 patient's blood cultures indicates yeast. Spoke with infectious disease continue Diflucan for now. Will need to wait until yeast has been speciated. 06/10 pt's wbc improving. will continue current abx and antifungal. pt can go to LTAC once final cx comes back. 06/11 pt's wbc improving, no fever. pt had rapid response for hypoxia. pt had mucus plug was noted on monitor to have st elevation. Ekg done which did not show ST elevation. ST elevation was most likely transient. will check trops and monitor. Son jimenez called and updated. Son wanted pt to be on tramadol since he feels that at times she has pain and tylenol is not enough and would require more pain meds. 2/2 pt more awake today and following commands slowly. will continue iv abx and antifungal. pt ready to go to LTAC. case liner notified. 2/3 patient following commands. Jimenez called and left message. will continue abx. pending on LTAC approval.
[2020-06-13] MEDS: MEROPENEM 1 GM/50 ML 1 GM in Premix Bag 1 BAG IVPB SCH (14:04)
[2020-06-13 14:14] LABS: #Lymphocytes 0.9 thou/uL (1.20-3.40); #Monocytes 0.3 thou/uL (0.11-0.59); #Neutrophils 15.7 thou/uL (1.40-6.50); %Basophils 0.1 % (0.0-1.0); %Eosinophils 0.3 % (0.0-10.0); %Lymphocytes 5.2 % (21.0-51.0); %Monocytes 1.7 % (0.0-10.0); %Neutrophils 92.6 % (42.0-75.0); Hemoglobin 10.5 g/dL (12.0-16.0); Mean Corpuscular HGB CONC 32.3 g/dL (32.0-36.0); Mean Corpuscular Hemoglobin 30.1 pg (27.0-31.0); Mean Corpuscular Volume 93.2 fL (78.0-98.0); Mean Platelet Volume 8.2 fL (7.4-10.4); Platelet Count 315 thou/uL (130-400); RBC Distribution Width 17.2 % (11.5-14.5)
--- NOTE | 2020-06-13 15:25 | PRG ---
DATE OF SERVICE: 06/13/2020 SUBJECTIVE: The patient is seen and examined at the bedside. Nonverbal and nonresponsive. OBJECTIVE: GENERAL: This is an elderly female, in no apparent distress. VITAL SIGNS: Temperature 98.4, pulse 50, respiratory rate 20, and blood pressure 129/69. HEENT: Atraumatic, normocephalic. CV: S1 and S2 heard. RESPIRATORY: Clear. GASTROINTESTINAL: Abdomen is soft. MUSCULOSKELETAL: 1+ edema. LABORATORY DATA: Potassium 3.7, BUN is 16, and creatinine is 0.7. ASSESSMENT AND PLAN: 1. End-stage renal disease. Labs seems to be off today. We will continue on dialysis. The patient is seen on dialysis. 2. Hypertension. 3. Anemia of chronic disease. 4. Pneumonia. 5. COVID-19 infection. 6. Acute hypoxic respiratory failure. 7. Altered mentation. We will continue to monitor. Job ID: [id number]
[2020-06-13] MEDS: Insulin Regular 300 UNITS/3 ML VIAL SC PRN (18:20)
[2020-06-13] MEDS: Acetaminophen 650 MG/20.3 ML UDCUP PER TUBE PRN (21:24)
[2020-06-14] MEDS: MEROPENEM 1 GM/50 ML 1 GM in Premix Bag 1 BAG IVPB SCH ×3 (01:04→22:47)
[2020-06-14 05:35] LABS: PTT 28.6 sec (22.9-36.1); Prothrombin Time 13.2 sec (12.0-14.7)
[2020-06-14 06:10] LABS: Anion Gap 18 mmol/L (10-20); BUN (Urea Nitrogen) 44 mg/dL (9.8-20.1); Calc. Creatinine Clearance 20 mL/min (70-130); Calcium 8.6 mg/dL (7.8-10.44); Carbon Dioxide 23 mmol/L (23-31); Chloride 97 mmol/L (98-107); Glucose 126 mg/dL (80-115); Potassium 4.1 mmol/L (3.5-5.1); Sodium 134 mmol/L (136-145)
[2020-06-14 06:21] LABS: HBSAg Index 0.19 S/CO (0-0.99); Hep B Surf Ag Non-Reactive S/CO (NonReactive)
[2020-06-14 06:36] LABS: Anisocytosis SLIGHT = 6-15 cells (100X) (0-5/hpf); Band 3 % (5-11); Eosinophils 1 % (0-10); Hemoglobin 10.2 g/dL (12.0-16.0); Lymphocytes 13 % (21-51); MDiff Complete? YES; Mean Corpuscular HGB CONC 31.8 g/dL (32.0-36.0); Mean Corpuscular Hemoglobin 29.9 pg (27.0-31.0); Mean Corpuscular Volume 93.9 fL (78.0-98.0); Mean Platelet Volume 8.3 fL (7.4-10.4); Monocytes 3 % (0-10); Neutrophil 80 % (42-75); Platelet Count 300 thou/uL (130-400); Polychromasia SLIGHT = 2-3 cells (100X) (0-2/hpf); RBC Distribution Width 17.2 % (11.5-14.5); Red Blood Cell (RBC) Count 3.41 mill/uL (4.20-5.40); Schistocytes SLIGHT = 2-5 cells (100X) (0-1/hpf); White Blood Cell (WBC) Count 12.9 thou/uL (4.8-10.8)
[2020-06-14] MEDS: Mometasone 200 MCG/Formoterol 5 MCG 120 PUFF INHALER INH SCH ×2 (06:41→17:28)
[2020-06-14] MEDS: predniSONE 20 MG TAB PO SCH (09:00)
[2020-06-14] MEDS: Amlodipine 10 MG TAB PER TUBE SCH (09:00)
[2020-06-14] MEDS: Carvedilol 6.25 MG TAB PER TUBE SCH ×2 (09:00→21:24)
[2020-06-14] MEDS: cloNIDine 0.2 MG TAB PER TUBE SCH ×2 (09:00→21:24)
[2020-06-14] MEDS: Fluconazole 100 MG TAB PO SCH (09:01)
[2020-06-14] MEDS: Insulin Glargine 15 UNITS in Pre-Filled Syringe 1 EACH SC SCH (09:01)
[2020-06-14] MEDS: levETIRAcetam 500 MG TAB PER TUBE SCH ×2 (09:01→21:24)
[2020-06-14] MEDS: Pantoprazole 40 MG GRANULES PACKET PER TUBE SCH (09:01)
[2020-06-14] MEDS: Insulin Regular 300 UNITS/3 ML VIAL SC PRN ×3 (11:55→23:33)
--- NOTE | 2020-06-14 17:01 | PRG ---
DATE OF SERVICE: 06/14/2020 Patient is getting better. She still did not open her eyes. Apparently, she is opening them for other examiners and family members, but she is specifically acknowledge that she is not opening her eyes on purposes. Must have a little bit of encephalopathic consequences of all her illness, and had a temperature elevation up to 101.5 yesterday at 9 pm, she is now 98.1. PHYSICAL EXAMINATION: HEENT: Trach collar due to could not check her eyes LUNGS: With symmetric breath sounds. Few crackles here and there. CARDIAC: S1, S2, regular rate. ABDOMEN: Soft, not distended. She has a right subclavian tunneled hemodialysis catheter and is incontinent. EXTREMITIES: She is able to move all 4 extremities, but does not follow commands. She actually resists commands. LABORATORY: White cell count is down to 12.9, hemoglobin 10.2, platelets 300, 80% neutrophils. Creatinine is 3.52, sodium 134. Microbiology, yeast species on June 06, aeruginosa from tracheal culture susceptible to cefepime actually. She did have Pseudomonas from cath tip as well in May 27. She is right now on meropenem and fluconazole. ASSESSMENT AND DISCUSSION: Type 2 diabetes, cardiomyopathy, chronic kidney disease with worsening COVID-19, intubation, survival in the ICU phase with transfer back to observation unit with trach and PEG. Some encephalopathy but seems to be improving. Leukocytosis is improving and the catheter has been removed. She may have colonization of the dialysis catheter though. We will have to continue monitoring blood cultures at intervals. Continue meropenem and Diflucan. I think transfer to LTAC is pending approval by insurance. Job ID: [id number] [facility]
--- NOTE | 2020-06-14 20:19 | PRG ---
DATE OF SERVICE: 06/14/2020 SUBJECTIVE: The patient was seen and examined at the bedside. The patient is more responsive at the bedside. OBJECTIVE: GENERAL: This is a well-built female, in no apparent distress. VITAL SIGNS: Temperature 98.6, pulse 61, respiratory rate 18, blood pressure 158/72. HEENT: Atraumatic, normocephalic. NECK: Trach collar. CV: S1 and S2 heard. RESPIRATORY: Clear. GASTROINTESTINAL: Abdomen is soft. MUSCULOSKELETAL: No edema, no tenderness. LABORATORY DATA: Potassium 4.1, BUN is 44, creatinine is 3.5. ASSESSMENT AND PLAN: 1. End-stage renal disease. Continue on dialysis. 2. Hypertension. 3. Anemia of chronic disease. 4. Pneumonia. 5. History of COVID-19 infection. 6. Acute hypoxic respiratory failure. 7. Altered mentation, slightly better. 8. Labs are stable. We will continue on dialysis as tolerated. Job ID: [id number]
[2020-06-15 05:05] LABS: #Basophils 0.1 thou/uL (0.0-0.2); #Eosinphils 0.1 thou/uL (0.0-0.7); #Lymphocytes 1.6 thou/uL (1.20-3.40); #Monocytes 0.8 thou/uL (0.11-0.59); #Neutrophils 10.4 thou/uL (1.40-6.50); %Basophils 0.5 % (0.0-1.0); %Eosinophils 0.8 % (0.0-10.0); %Lymphocytes 12.2 % (21.0-51.0); %Monocytes 6.1 % (0.0-10.0); %Neutrophils 80.4 % (42.0-75.0); Hemoglobin 9.4 g/dL (12.0-16.0); Mean Corpuscular Hemoglobin 29.7 pg (27.0-31.0); Mean Corpuscular Volume 95.8 fL (78.0-98.0); Mean Platelet Volume 8.2 fL (7.4-10.4); Platelet Count 285 thou/uL (130-400); RBC Distribution Width 17.6 % (11.5-14.5); Red Blood Cell (RBC) Count 3.17 mill/uL (4.20-5.40)
[2020-06-15 05:06] LABS: Prothrombin Time 13.5 sec (12.0-14.7)
[2020-06-15 05:07] LABS: PTT 35.2 sec (22.9-36.1)
[2020-06-15 05:16] LABS: Anion Gap 19 mmol/L (10-20); BUN (Urea Nitrogen) 63 mg/dL (9.8-20.1); Calc. Creatinine Clearance 17 mL/min (70-130); Calcium 8.6 mg/dL (7.8-10.44); Carbon Dioxide 24 mmol/L (23-31); Chloride 96 mmol/L (98-107); Glucose 126 mg/dL (80-115); Potassium 4.7 mmol/L (3.5-5.1); Sodium 134 mmol/L (136-145)
[2020-06-15] MEDS: Mometasone 200 MCG/Formoterol 5 MCG 120 PUFF INHALER INH SCH ×2 (05:48→16:53)
[2020-06-15] MEDS: predniSONE 20 MG TAB PO SCH (09:37)
[2020-06-15] MEDS: levETIRAcetam 500 MG TAB PER TUBE SCH ×2 (09:38→20:45)
[2020-06-15] MEDS: Pantoprazole 40 MG GRANULES PACKET PER TUBE SCH (09:38)
[2020-06-15] MEDS: Fluconazole 100 MG TAB PO SCH (09:38)
[2020-06-15] MEDS ORDERED: Heparin 10,000 UNITS/ 10 ML VIAL ONE (09:45)
--- NOTE | 2020-06-15 09:58 | ULT ---
Dialysis vein mapping examination: 06/15/2020 HISTORY: 70-year-old female undergoing evaluation prior to dialysis access placement. TECHNIQUE: Multiplanar grayscale sonographic imaging of the vascular structures of bilateral upper ex tremities obtained as described below. Imaging includes Doppler interrogation with color flow and spectral analysis FINDINGS: Right internal jugular vein and right subclavian could not be fully visualized secondary to the prese nce of a tracheostomy. The mid and distal right subclavian vein, the right axillary vein as well as the left mid and distal left subclavian vein and left axillary vein are patent. The left proximal sub clavian vein and the left internal jugular vein could not be visualized secondary to presence of a tracheostomy. VESSEL DIAMETER (mm) Right Brachial Artery 5.7 Right Radial Artery 2.8 Right Ulnar Artery 2.3 Left Brachial Artery 4.9 Left Radial Artery 2.7 Left Ulnar Artery 2.9 RIGHT CEPHALIC VEIN: Above Elbow Proximal 1.2 Above Elbow Mid 2.0 Above Elbow Distal 1.4 At Elbow 2.2 Below Elbow Proximal 2.0 Below Elbow Mid 1.5 Below Elbow Distal 1.7 RIGHT BASILIC VEIN: Above Elbow Proximal 3.0 Above Elbow Mid 2.5 Above Elbow Distal 1.8 At Elbow 1.7 Below Elbow Proximal 2.2 Below Elbow Mid 1.5 Below Elbow Distal 1.1 LEFT BASILIC VEIN: Above Elbow Proximal 2.7 Above Elbow Mid 2.6 Above Elbow Distal 1.6 At Elbow 2.1 Below Elbow Proximal 2.2 Below Elbow Mid 1.5 Below Elbow Distal 1.4 LEFT CEPHALIC VEIN: Above Elbow Proximal Nonvisualized Above Elbow Mid 1.8 Above Elbow Distal 1.4 At Elbow 1.4 Below Elbow Proximal 1.5 Below Elbow Mid Noncompressible Below Elbow Distal Nonvisualized IMPRESSION: Dialysis access mapping vascular study as above. Transcribed Date/Time: 06/15/2020 1:44 PM
[2020-06-15] MEDS: MEROPENEM 1 GM/50 ML 1 GM in Premix Bag 1 BAG IVPB SCH (11:25)
[2020-06-15 13:35] LABS: HBSAg Index 0.31 S/CO (0-0.99); Hep B Surf Ag Non-Reactive S/CO (NonReactive)
--- NOTE | 2020-06-15 15:53 | PRG ---
DATE OF SERVICE: 06/15/2020 SUBJECTIVE: The patient is seen and examined at bedside. Slightly more awake today. OBJECTIVE: GENERAL: This is a well-built female, in no apparent distress. VITAL SIGNS: Temperature 97.9, pulse 55, respiratory rate 20, and blood pressure 153/70. HEENT: Atraumatic, normocephalic. NECK: Supple. CV: S1 and S2 heard. RESPIRATORY: Clear. GASTROINTESTINAL: Abdomen is soft. MUSCULOSKELETAL: 1+ edema. LABORATORY DATA: Potassium 4.7, BUN is 63, and creatinine is 4.3. ASSESSMENT AND PLAN: 1. End-stage renal disease. Continue dialysis. 2. Edema. 3. Hypertension. 4. Hypernatremia. 5. Anemia. Plan to continue on dialysis as tolerated. Job ID: [id number]
[2020-06-15] MEDS ORDERED: Amlodipine 10 MG TAB PER TUBE SCH (16:15)
[2020-06-15] MEDS ORDERED: cloNIDine 0.2 MG TAB PER TUBE SCH (16:15)
[2020-06-15] MEDS ORDERED: Carvedilol 6.25 MG TAB PER TUBE SCH (16:15)
[2020-06-15] MEDS ORDERED: CEFAZOLIN 2 GM in Premix Bag 1 BAG IVPB SCH (16:30)
--- NOTE | 2020-06-15 16:44 | PDOC.HOSPP ---
- Subjective Encounter Date: 06/14/20 Encounter Time: 11:45 Subjective: pt nonverbal but follows commands - Objective Vital Signs & Weight: Vital Signs (12 hours) Temp Pulse Resp BP Pulse Ox 06/15/20 08:42 100 06/15/20 08:30 100 06/15/20 08:00 97.9 F 59 L 19 153/70 H 100 Weight Admit Weight 186 lb 4.8 oz Weight 188 lb 3.2 oz Most Recent Monitor Data Heart Rate from ECG 64 NIBP 136/65 NIBP BP-Mean 88 Respiration from ECG 14 SpO2 95 I&O: 06/14/20 06/15/20 06/16/20 06:59 06:59 06:59 Intake Total 1531 1226 30 Output Total 1999 Balance -469 1226 30 Result Diagrams: 06/15/20 04:44 06/15/20 04:44 Additional Labs: Accuchecks 06/15/20 06/14/20 06/14/20 11:27 23:25 17:13 POC Glucose 155 H 270 H 258 H Hospitalist ROS - Review of Systems Other: unable to obtain - Medication Medications: Active Medications Generic Name Dose Route Start Last Admin Trade Name Freq PRN Reason Stop Dose Admin Acetaminophen 650 mg 05/25/20 18:57 06/13/20 21:24 Acetaminophen 650 Mg/20.3 Ml Udcup PER TUBE 650 mg Q4H PRN Administration Fever > 101 Albuterol Sulfate 2 puff 05/05/20 03:59 05/05/20 07:40 Albuterol 200 Puff (6.7gm Inhaler) INH 2 puff [id number] PRN Administration Wheezing Amlodipine Besylate 10 mg 05/15/20 09:00 06/14/20 09:00 Amlodipine 10 Mg Tab PER TUBE 10 mg DAILY ESTER Administration Carvedilol 12.5 mg 06/08/20 21:00 06/14/20 21:24 Carvedilol 6.25 Mg Tab PER TUBE 12.5 mg BID ESTER Administration Clonidine 0.2 mg 05/27/20 21:00 06/14/20 21:24 Clonidine 0.2 Mg Tab PER TUBE 0.2 mg BID ESTER Administration Epoetin Selwyn-epbx 10,000 unit 05/28/20 18:00 06/13/20 12:00 Epoetin Selwyn-Epbx (Esrd) 10,000 Unit/Ml Vial IVP 10,000 unit MoWeFr ESTER Administration Fluconazole 200 mg 06/10/20 09:00 06/15/20 09:38 Fluconazole 100 Mg Tab PO 200 mg DAILY ESTER Administration Insulin Glargine 15 units/ 0.15 mls @ 0 mls/hr 06/04/20 09:00 06/14/20 09:01 Miscellaneous Medication SC 0.15 mls QAM ESTER Administration Insulin Human Regular 0 units 05/13/20 09:28 06/14/20 23:33 Insulin Regular 300 Units/3 Ml Vial SC 6 unit .MODERATE SLIDING SC PRN Administration Moderate Correctional Scale Labetalol HCl 20 mg 05/12/20 05:37 05/29/20 11:27 Labetalol Hcl 100 Mg/20 Ml Vial SLOW IVP 20 mg Q4H PRN Administration SBP >170 Levetiracetam 500 mg 06/04/20 09:00 06/15/20 09:38 Levetiracetam 500 Mg Tab PER TUBE 500 mg BID ESTER Administration Mometasone Furoate/Formoterol Fumar 2 puff 05/09/20 18:30 06/15/20 05:48 Mometasone 200 Mcg/Formoterol 5 Mcg 120 Puff Inhaler INH 2 puff BID-RT ESTER Administration Ondansetron HCl 4 mg 05/03/20 17:50 05/23/20 16:00 Ondansetron Pf 4 Mg/2 Ml Vial IVP 4 mg Q6H PRN Administration Nausea/Vomiting Pantoprazole Sodium 40 mg 06/04/20 09:00 06/15/20 09:38 Pantoprazole 40 Mg Granules Packet PER TUBE 40 mg DAILY ESTER Administration Sodium Chloride 10 ml 05/24/20 10:31 06/13/20 14:04 Flush - Normal Saline 10 Ml Syringe IVF 10 ml PRN PRN Administration Saline Flush Tramadol HCl 50 mg 06/11/20 14:53 06/12/20 22:58 Tramadol Hcl 50 Mg Tab PO 50 mg Q8H PRN Administration Pain Hospitalist Exam Vitals: Vital Signs (12 hours) Temp Pulse Resp BP Pulse Ox 06/15/20 08:42 100 06/15/20 08:30 100 06/15/20 08:00 97.9 F 59 L 19 153/70 H 100 Weight Admit Weight 186 lb 4.8 oz Weight 188 lb 3.2 oz Most Recent Monitor Data Heart Rate from ECG 64 NIBP 136/65 NIBP BP-Mean 88 Respiration from ECG 14 SpO2 95 Neck: supple Heart: no murmur, no gallops Respiratory: no wheezes, no rales Gastrointestinal: soft, non-tender, normal bowel sounds Hosp A/P - Plan (1) Pneumonia due to COVID-19 virus Code(s): U07.1 - COVID-19; J12.89 - OTHER VIRAL PNEUMONIA Status: Acute (2) Acute kidney injury superimposed on CKD Code(s): N17.9 - ACUTE KIDNEY FAILURE, UNSPECIFIED; N18.9 - CHRONIC KIDNEY DISEASE, UNSPECIFIED Status: Acute (3) Acute respiratory failure with hypoxia Code(s): J96.01 - ACUTE RESPIRATORY FAILURE WITH HYPOXIA Status: Acute (4) HTN (hypertension) Code(s): I10 - ESSENTIAL (PRIMARY) HYPERTENSION Status: Chronic Qualifiers: Hypertension type: essential hypertension Qualified Code(s): I10 - Essential (primary) hypertension (5) Dyslipidemia Code(s): E78.5 - HYPERLIPIDEMIA, UNSPECIFIED Status: Chronic (6) Peripheral neuropathy Code(s): G62.9 - POLYNEUROPATHY, UNSPECIFIED Status: Chronic Qualifiers: Peripheral neuropathy type: polyneuropathy, unspecified Qualified Code(s): G62.9 - Polyneuropathy, unspecified (7) Anemia of renal disease Code(s): D63.1 - ANEMIA IN CHRONIC KIDNEY DISEASE Status: Chronic (8) Metabolic acidosis Code(s): E87.2 - ACIDOSIS Status: Resolved - Plan is on high flow, continue dexamethasone. 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 on coreg and hydralazine, she also takes ambien chronically for insomnia at 10mg progressive worsening of renal function due to poor oral intake and likely contribution from covid, Creatinine around 2.5 at baseline is at high risk for complications with multiple comorbid conditions will need rehab/swing bed for dc plan, agrees to go to [place] swing bed. off clonidine and is on lower dose coreg due to bradycardia with rates dipping into 40's which has resolved now. encourage po intake, is not eating much despite changing to regular diet patient has consented to talk to her daughter, d/w and gave full updates and guarded prognosis 05/10, 05/2020. 05/12 patient appeared little bit more confused today ABG indicated significant hypoxia. Her high flow was titrated accordingly per respiratory therapy. Patient continues not to eat very much. Patient encouraged to eat or drink supplements. Chest x-ray indicated worsening pneumonia. Worsening creatinine. We will hold all nephrotoxins. We will continue doxycycline and stop ceftriaxone. Patient started on a bicarb drip per nephrology. 05/13 pt was intubated on the night of 05/12. will continue current treatment. pt on steroids and abx. DVt ppx. H&H is low normal will continue to monitor 05/14 patient's urine output continues to decrease her creatinine continues to worsen. Patient may require dialysis. Patient's family called left message. Continue steroids for now. Patient received albumin. 05/15 patient continues to be intubated. She had a dialysis catheter placed today. We will continue steroids for now. Patient on DVT prophylaxis. 05/16 patient continues to be intubated. Dialysis catheter placed yesterday patient underwent dialysis. Not tolerating tube feeds will start patient on Reglan. Continue steroids for now. Will call family and update. 05/17 pt continues to be intubated. will continue dialysis for now. pt now tolerating her tube feeds. will continue to current tx and reglan. continue steroids for now. son Jimenez called and updated. pt's wbc elevated on broad abx for now. HH is 6.9 will monitor may need blood transfusion. 05/18 patient continues to be intubated. Will give 1 unit PRBC now. I did speak with the patient's son Jimenez yesterday updated him. Continues to have elevated WBCs patient on antibiotics. 05/19 patient continues to be intubated. H&H low stable 05/20 patient's son called and updated. Patient's oxygen saturations decreased to 40% FiO2. We will continue to monitor. H&H is low stable. Continues to have white count. We will continue antibiotics. 05/21 patient currently is doing well on 40% FiO2. Nurses decreasing sedation patient opening eyes but not following commands. H&H stable. 06/07Neurology was consulted on May 31 for concerns for possible seizures. On May 31 patient had a tunnel catheter, left subclavian central catheter, a PEG tube and a tracheostomy. Patient's left subclavian central line was removed. Patient was prophylactic started on Keppra for possible seizures. Patient just finished a course of antibiotics with Zosyn for Pseudomonas from her respiratory culture. She spiked a temperature last night blood cultures were done I will also send a sputum culture she has an elevated white count we will reconsult infectious disease and will start her on meropenem for now. will also get a cxr. pt now only has peg tube/trach and tunnel cath. Concern for line infect with tunnel cath. 06/08 we will continue current antibiotics. She continues to have a fever. We will touch base with infectious disease. She currently only has dialysis catheter in place. 06/09 patient's blood cultures indicates yeast. Spoke with infectious disease continue Diflucan for now. Will need to wait until yeast has been speciated. 06/10 pt's wbc improving. will continue current abx and antifungal. pt can go to LTAC once final cx comes back. 06/11 pt's wbc improving, no fever. pt had rapid response for hypoxia. pt had mucus plug was noted on monitor to have st elevation. Ekg done which did not show ST elevation. ST elevation was most likely transient. will check trops and monitor. Son jimenez called and updated. Son wanted pt to be on tramadol since he feels that at times she has pain and tylenol is not enough and would require more pain meds. 06/12 pt more awake today and following commands slowly. will continue iv abx and antifungal. pt ready to go to LTAC. case hardener notified. 06/13 patient following commands. Jimenez called and left message. will continue abx. pending on LTAC approval. 06/14 Awaiting insurance auth. will decrease steroids to 10mg. will stop meropenam and will continue diflucan for a total of 2 weeks.
--- NOTE | 2020-06-15 16:47 | PDOC.HOSPP ---
- Subjective Encounter Date: 06/15/20 Encounter Time: 10:30 Subjective: pt had an episode of aflutter during dialysis. - Objective Vital Signs & Weight: Vital Signs (12 hours) Temp Pulse Resp BP Pulse Ox 06/15/20 08:42 100 06/15/20 08:30 100 06/15/20 08:00 97.9 F 59 L 19 153/70 H 100 Weight Admit Weight 186 lb 4.8 oz Weight 188 lb 3.2 oz Most Recent Monitor Data Heart Rate from ECG 64 NIBP 136/65 NIBP BP-Mean 88 Respiration from ECG 14 SpO2 95 I&O: 06/14/20 06/15/20 06/16/20 06:59 06:59 06:59 Intake Total 1531 1226 30 Output Total 1999 Balance -469 1226 30 Result Diagrams: 06/15/20 04:44 06/15/20 04:44 Additional Labs: Accuchecks 06/15/20 06/14/20 06/14/20 11:27 23:25 17:13 POC Glucose 155 H 270 H 258 H Hospitalist ROS - Review of Systems Other: non verbal - Medication Medications: Active Medications Generic Name Dose Route Start Last Admin Trade Name Freq PRN Reason Stop Dose Admin Acetaminophen 650 mg 05/25/20 18:57 06/13/20 21:24 Acetaminophen 650 Mg/20.3 Ml Udcup PER TUBE 650 mg Q4H PRN Administration Fever > 101 Albuterol Sulfate 2 puff 05/05/20 03:59 05/05/20 07:40 Albuterol 200 Puff (6.7gm Inhaler) INH 2 puff [id number] PRN Administration Wheezing Amlodipine Besylate 10 mg 05/15/20 09:00 06/14/20 09:00 Amlodipine 10 Mg Tab PER TUBE 10 mg DAILY ESTER Administration Carvedilol 12.5 mg 06/08/20 21:00 06/14/20 21:24 Carvedilol 6.25 Mg Tab PER TUBE 12.5 mg BID ESTER Administration Clonidine 0.2 mg 05/27/20 21:00 06/14/20 21:24 Clonidine 0.2 Mg Tab PER TUBE 0.2 mg BID ESTER Administration Epoetin Selwyn-epbx 10,000 unit 05/28/20 18:00 06/13/20 12:00 Epoetin Selwyn-Epbx (Esrd) 10,000 Unit/Ml Vial IVP 10,000 unit MoWeFr ESTER Administration Fluconazole 200 mg 06/10/20 09:00 06/15/20 09:38 Fluconazole 100 Mg Tab PO 200 mg DAILY ESTER Administration Insulin Glargine 15 units/ 0.15 mls @ 0 mls/hr 06/04/20 09:00 06/14/20 09:01 Miscellaneous Medication SC 0.15 mls QAM ESTER Administration Insulin Human Regular 0 units 05/13/20 09:28 06/14/20 23:33 Insulin Regular 300 Units/3 Ml Vial SC 6 unit .MODERATE SLIDING SC PRN Administration Moderate Correctional Scale Labetalol HCl 20 mg 05/12/20 05:37 05/29/20 11:27 Labetalol Hcl 100 Mg/20 Ml Vial SLOW IVP 20 mg Q4H PRN Administration SBP >170 Levetiracetam 500 mg 06/04/20 09:00 06/15/20 09:38 Levetiracetam 500 Mg Tab PER TUBE 500 mg BID ESTER Administration Mometasone Furoate/Formoterol Fumar 2 puff 05/09/20 18:30 06/15/20 05:48 Mometasone 200 Mcg/Formoterol 5 Mcg 120 Puff Inhaler INH 2 puff BID-RT ESTER Administration Ondansetron HCl 4 mg 05/03/20 17:50 05/23/20 16:00 Ondansetron Pf 4 Mg/2 Ml Vial IVP 4 mg Q6H PRN Administration Nausea/Vomiting Pantoprazole Sodium 40 mg 06/04/20 09:00 06/15/20 09:38 Pantoprazole 40 Mg Granules Packet PER TUBE 40 mg DAILY ESTER Administration Sodium Chloride 10 ml 05/24/20 10:31 06/13/20 14:04 Flush - Normal Saline 10 Ml Syringe IVF 10 ml PRN PRN Administration Saline Flush Tramadol HCl 50 mg 06/11/20 14:53 06/12/20 22:58 Tramadol Hcl 50 Mg Tab PO 50 mg Q8H PRN Administration Pain Hospitalist Exam Vitals: Vital Signs (12 hours) Temp Pulse Resp BP Pulse Ox 06/15/20 08:42 100 06/15/20 08:30 100 06/15/20 08:00 97.9 F 59 L 19 153/70 H 100 Weight Admit Weight 186 lb 4.8 oz Weight 188 lb 3.2 oz Most Recent Monitor Data Heart Rate from ECG 64 NIBP 136/65 NIBP BP-Mean 88 Respiration from ECG 14 SpO2 95 Neck: supple, symmetric Heart: no murmur, no gallops Respiratory: no wheezes, no rales Gastrointestinal: soft, non-tender, normal bowel sounds Extremities: 1+ LE edema Hosp A/P - Plan (1) Pneumonia due to COVID-19 virus Code(s): U07.1 - COVID-19; J12.89 - OTHER VIRAL PNEUMONIA Status: Acute (2) Acute kidney injury superimposed on CKD Code(s): N17.9 - ACUTE KIDNEY FAILURE, UNSPECIFIED; N18.9 - CHRONIC KIDNEY DISEASE, UNSPECIFIED Status: Acute (3) Acute respiratory failure with hypoxia Code(s): J96.01 - ACUTE RESPIRATORY FAILURE WITH HYPOXIA Status: Acute (4) HTN (hypertension) Code(s): I10 - ESSENTIAL (PRIMARY) HYPERTENSION Status: Chronic Qualifiers: Hypertension type: essential hypertension Qualified Code(s): I10 - Essential (primary) hypertension (5) Dyslipidemia Code(s): E78.5 - HYPERLIPIDEMIA, UNSPECIFIED Status: Chronic (6) Peripheral neuropathy Code(s): G62.9 - POLYNEUROPATHY, UNSPECIFIED Status: Chronic Qualifiers: Peripheral neuropathy type: polyneuropathy, unspecified Qualified Code(s): G62.9 - Polyneuropathy, unspecified (7) Anemia of renal disease Code(s): D63.1 - ANEMIA IN CHRONIC KIDNEY DISEASE Status: Chronic (8) Metabolic acidosis Code(s): E87.2 - ACIDOSIS Status: Resolved - Plan is on high flow, continue dexamethasone. 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 on coreg and hydralazine, she also takes ambien chronically for insomnia at 10mg progressive worsening of renal function due to poor oral intake and likely contribution from covid, Creatinine around 2.5 at baseline is at high risk for complications with multiple comorbid conditions will need rehab/swing bed for dc plan, agrees to go to [place] swing bed. off clonidine and is on lower dose coreg due to bradycardia with rates dipping into 40's which has resolved now. encourage po intake, is not eating much despite changing to regular diet patient has consented to talk to her daughter, d/w and gave full updates and guarded prognosis 05/10, 05/2020. 05/12 patient appeared little bit more confused today ABG indicated significant hypoxia. Her high flow was titrated accordingly per respiratory therapy. Patient continues not to eat very much. Patient encouraged to eat or drink supplements. Chest x-ray indicated worsening pneumonia. Worsening creatinine. We will hold all nephrotoxins. We will continue doxycycline and stop ceftriaxone. Patient started on a bicarb drip per nephrology. 05/13 pt was intubated on the night of 05/12. will continue current treatment. pt on steroids and abx. DVt ppx. H&H is low normal will continue to monitor 05/14 patient's urine output continues to decrease her creatinine continues to worsen. Patient may require dialysis. Patient's family called left message. Continue steroids for now. Patient received albumin. 05/15 patient continues to be intubated. She had a dialysis catheter placed today. We will continue steroids for now. Patient on DVT prophylaxis. 05/16 patient continues to be intubated. Dialysis catheter placed yesterday patient underwent dialysis. Not tolerating tube feeds will start patient on Reglan. Continue steroids for now. Will call family and update. 05/17 pt continues to be intubated. will continue dialysis for now. pt now tolerating her tube feeds. will continue to current tx and reglan. continue steroids for now. son Chris called and updated. pt's wbc elevated on broad abx for now. HH is 6.9 will monitor may need blood transfusion. 05/18 patient continues to be intubated. Will give 1 unit PRBC now. I did speak with the patient's son Chris yesterday updated him. Continues to have elevated WBCs patient on antibiotics. 05/19 patient continues to be intubated. H&H low stable 05/20 patient's son called and updated. Patient's oxygen saturations decreased to 40% FiO2. We will continue to monitor. H&H is low stable. Continues to have white count. We will continue antibiotics. 05/21 patient currently is doing well on 40% FiO2. Nurses decreasing sedation patient opening eyes but not following commands. H&H stable. 06/07Neurology was consulted on May 31 for concerns for possible seizures. On May 31 patient had a tunnel catheter, left subclavian central catheter, a PEG tube and a tracheostomy. Patient's left subclavian central line was removed. Patient was prophylactic started on Keppra for possible seizures. Paluie borrero just finished a course of antibiotics with Zosyn for Pseudomonas from her respiratory culture. She spiked a temperature last night blood cultures were done I will also send a sputum culture she has an elevated white count we will reconsult infectious disease and will start her on meropenem for now. will also get a cxr. pt now only has peg tube/trach and tunnel cath. Concern for line infect with tunnel cath. 06/08 we will continue current antibiotics. She continues to have a fever. We w ill touch base with infectious disease. She currently only has dialysis catheter in place. 06/09 patient's blood cultures indicates yeast. Spoke with infectious disease continue Diflucan for now. Will need to wait until yeast has been speciated. 06/10 pt's wbc improving. will continue current abx and antifungal. pt can go to LTAC once final cx comes back. 06/11 pt's wbc improving, no fever. pt had rapid response for hypoxia. pt had mucus plug was noted on monitor to have st elevation. Ekg done which did not show ST elevation. ST elevation was most likely transient. will check trops and monitor. Son chris called and updated. Son wanted pt to be on tramadol since he feels that at times she has pain and tylenol is not enough and would require more pain meds. 2/ pt more awake today and following commands slowly. will continue iv abx and antifungal. pt ready to go to LTAC. renal case manager notified. 06/13 patient following commands. Chris called and left message. will continue abx. pending on LTAC approval. 06/14 Awaiting insurance auth. will decrease steroids to 10mg. will stop meropenam and will continue diflucan for a total of 2 weeks. 06/15 pt had episode of aflutter during dialysis. pt is not on any AC. will start eliquis 2.5mg bid. pt's heparin was stopped due to DIC. I will restart it and see how she does. will monitor.
[2020-06-15] MEDS: Carvedilol 6.25 MG TAB PER TUBE SCH ×2 (16:53→20:45)
[2020-06-15] MEDS: Amlodipine 10 MG TAB PER TUBE SCH (16:54)
[2020-06-15] MEDS: cloNIDine 0.2 MG TAB PER TUBE SCH ×2 (16:54→20:45)
[2020-06-15] MEDS: Insulin Glargine 15 UNITS in Pre-Filled Syringe 1 EACH SC SCH (16:55)
[2020-06-15] MEDS: EPOETIN ALFA-EPBX (ESRD) 10,000 UNIT/ML VIAL IVP SCH (16:56)
[2020-06-15] MEDS: Insulin Regular 300 UNITS/3 ML VIAL SC PRN (17:03)
[2020-06-15] MEDS: Acetaminophen 650 MG/20.3 ML UDCUP PER TUBE PRN (20:44)
[2020-06-15] MEDS ORDERED: Apixaban 2.5 MG TAB PO SCH (21:00)
[2020-06-16] MEDS: Dextrose 50% Abboject 50 ML SYRINGE SLOW IVP PRN ×2 (05:44→05:48)
[2020-06-16] MEDS: Mometasone 200 MCG/Formoterol 5 MCG 120 PUFF INHALER INH SCH ×2 (06:53→19:44)
[2020-06-16] MEDS: predniSONE 20 MG TAB PO SCH (09:59)
[2020-06-16] MEDS: Pantoprazole 40 MG GRANULES PACKET PER TUBE SCH (09:59)
[2020-06-16] MEDS: levETIRAcetam 500 MG TAB PER TUBE SCH ×2 (09:59→21:50)
[2020-06-16] MEDS: Amlodipine 10 MG TAB PER TUBE SCH (09:59)
[2020-06-16] MEDS: Fluconazole 100 MG TAB PO SCH (09:59)
[2020-06-16] MEDS: Carvedilol 6.25 MG TAB PER TUBE SCH ×2 (10:00→21:50)
[2020-06-16] MEDS: cloNIDine 0.2 MG TAB PER TUBE SCH ×2 (10:00→21:49)
[2020-06-16] MEDS: Insulin Glargine 15 UNITS in Pre-Filled Syringe 1 EACH SC SCH (10:01)
--- NOTE | 2020-06-16 12:23 | PRG ---
DATE OF SERVICE: 06/16/2020 SUBJECTIVE: Patient was seen and examined at bedside. Remains nonverbal. OBJECTIVE: GENERAL: This is a well-built female, in no apparent distress. VITAL SIGNS: Temperature 98.3, pulse 55, respiratory rate 21, blood pressure 194/87. HEENT: Atraumatic, normocephalic. NECK: With trach present. CV: S1 and S2 heard. RESPIRATORY: Clear. GI: Abdomen is soft. MUSCULOSKELETAL: 1+ edema. NEUROLOGIC: Nonverbal. LABORATORY DATA: Not done today. ASSESSMENT AND PLAN: 1. End-stage renal disease. Continue dialysis on Thursday, Thursday, and Thursday. 2. Edema. Remove fluid. 3. History of hypertension. 4. Anemia of chronic disease. Plan to continue on dialysis as tolerated. Job ID: [id number]
[2020-06-16] MEDS: Insulin Regular 300 UNITS/3 ML VIAL SC PRN (18:45)
--- NOTE | 2020-06-16 19:59 | PDOC.HOSPP ---
- Subjective Encounter Date: 06/16/20 Encounter Time: 19:45 Subjective: f/u for COVID PNA/resp failure s/p trach/PEG receiving T-collar. No new events reported. - Objective Vital Signs & Weight: Vital Signs (12 hours) Temp Pulse Resp BP BP BP Pulse Ox 06/16/20 15:33 98.0 F 55 L 20 140/67 100 06/16/20 11:00 98.4 F 53 L 16 136/66 100 06/16/20 10:05 99 06/16/20 10:00 194/87 H 06/16/20 09:59 55 L Weight Admit Weight 186 lb 4.8 oz Weight 185 lb 2 oz Most Recent Monitor Data Heart Rate from ECG 64 NIBP 136/65 NIBP BP-Mean 88 Respiration from ECG 14 SpO2 95 I&O: 06/15/20 06/16/20 06/17/20 06:59 06:59 06:59 Intake Total 1226 1148 1770 Balance 1226 1148 1770 Result Diagrams: 06/15/20 04:44 06/15/20 04:44 Additional Labs: Accuchecks 06/16/20 06/16/20 06/16/20 17:01 12:08 10:08 POC Glucose 104 H 156 H 125 H 06/16/20 06/15/20 06:19 23:54 POC Glucose 74 191 H Laboratory Tests 06/10/20 06/11/20 06/12/20 05:03 06:01 06:09 WBC 16.6 H 16.4 H 15.0 H Hgb 9.2 L 9.3 L 9.8 L 06/13/20 06/14/20 13:52 05:07 WBC 17.0 H 12.9 H Hgb 10.5 L 10.2 L EKG Reviewed by me: Yes (Tele - SR) Hospitalist ROS - Medication Medications: Active Medications Generic Name Dose Route Start Last Admin Trade Name Freq PRN Reason Stop Dose Admin Acetaminophen 650 mg 05/25/20 18:57 06/15/20 20:44 Acetaminophen 650 Mg/20.3 Ml Udcup PER TUBE 650 mg Q4H PRN Administration Fever > 101 Albuterol Sulfate 2 puff 05/05/20 03:59 05/05/20 07:40 Albuterol 200 Puff (6.7gm Inhaler) INH 2 puff [id number] PRN Administration Wheezing Amlodipine Besylate 10 mg 05/15/20 09:00 06/16/20 09:59 Amlodipine 10 Mg Tab PER TUBE 10 mg DAILY ESTER Administration Carvedilol 12.5 mg 06/08/20 21:00 06/16/20 10:00 Carvedilol 6.25 Mg Tab PER TUBE 12.5 mg BID ESTER Administration Clonidine 0.2 mg 05/27/20 21:00 06/16/20 10:00 Clonidine 0.2 Mg Tab PER TUBE 0.2 mg BID ESTER Administration Dextrose/Water 25 gm 05/13/20 09:28 06/16/20 05:48 Dextrose 50% Abboject 50 Ml Syringe SLOW IVP 25 gm PRN PRN Administration Hypoglycemia Epoetin Selwyn-epbx 10,000 unit 05/28/20 18:00 06/15/20 16:56 Epoetin Selwyn-Epbx (Esrd) 10,000 Unit/Ml Vial IVP 10,000 unit MoWeFr ESTER Administration Fluconazole 200 mg 06/10/20 09:00 06/16/20 09:59 Fluconazole 100 Mg Tab PO 200 mg DAILY ESTER Administration Insulin Glargine 15 units/ 0.15 mls @ 0 mls/hr 06/04/20 09:00 06/16/20 10:01 Miscellaneous Medication SC Not Given QAM [facility] Insulin Human Regular 0 units 05/13/20 09:28 06/16/20 18:45 Insulin Regular 300 Units/3 Ml Vial SC 8 unit .MODERATE SLIDING SC PRN Administration Moderate Correctional Scale Labetalol HCl 20 mg 05/12/20 05:37 05/29/20 11:27 Labetalol Hcl 100 Mg/20 Ml Vial SLOW IVP 20 mg Q4H PRN Administration SBP >170 Levetiracetam 500 mg 06/04/20 09:00 06/16/20 09:59 Levetiracetam 500 Mg Tab PER TUBE 500 mg BID ESTER Administration Mometasone Furoate/Formoterol Fumar 2 puff 05/09/20 18:30 06/16/20 06:53 Mometasone 200 Mcg/Formoterol 5 Mcg 120 Puff Inhaler INH 2 puff BID-RT ESTER Administration Ondansetron HCl 4 mg 05/03/20 17:50 05/23/20 16:00 Ondansetron Pf 4 Mg/2 Ml Vial IVP 4 mg Q6H PRN Administration Nausea/Vomiting Pantoprazole Sodium 40 mg 06/04/20 09:00 06/16/20 09:59 Pantoprazole 40 Mg Granules Packet PER TUBE 40 mg DAILY ESTER Administration Prednisone 10 mg 06/16/20 08:00 06/16/20 09:59 Prednisone 20 Mg Tab PO 10 mg QAM-WM ESTER Administration Sodium Chloride 10 ml 05/24/20 10:31 06/13/20 14:04 Flush - Normal Saline 10 Ml Syringe IVF 10 ml PRN PRN Administration Saline Flush Tramadol HCl 50 mg 06/11/20 14:53 06/12/20 22:58 Tramadol Hcl 50 Mg Tab PO 50 mg Q8H PRN Administration Pain Hospitalist Exam Vitals: Vital Signs (12 hours) Temp Pulse Resp BP BP BP Pulse Ox 06/16/20 15:33 98.0 F 55 L 20 140/67 100 06/16/20 11:00 98.4 F 53 L 16 136/66 100 06/16/20 10:05 99 06/16/20 10:00 194/87 H 06/16/20 09:59 55 L Weight Admit Weight 186 lb 4.8 oz Weight 185 lb 2 oz Most Recent Monitor Data Heart Rate from ECG 64 NIBP 136/65 NIBP BP-Mean 88 Respiration from ECG 14 SpO2 95 General Appearance: NAD, awake alert General - other findings: nods to questions Eye: anicteric sclera ENT: normocephalic atraumatic, no oropharyngeal lesions Neck: supple, symmetric, no JVD, no thyromegaly, no lymphadenopathy Neck - other findings: trach in place with T-collar Heart: RRR, no gallops, no rubs, normal peripheral pulses Heart - other findings: S1, S2 Respiratory - other findings: diminished in bases bilat Gastrointestinal: soft, non-tender, non-distended, normal bowel sounds, no palpable masses Gastrointestinal - other findings: PEG in place Extremities: no cyanosis, no clubbing, no edema Skin: normal turgor Neurological: no new deficit Musculoskeletal: generalized weakness Psychiatric: oriented to person, flat affect Hosp A/P (1) Acute respiratory failure with hypoxia Code(s): J96.01 - ACUTE RESPIRATORY FAILURE WITH HYPOXIA Status: Acute Plan: s/p Tracheostomy, continue O2 via T-collar, general pulmonary support (2) Pneumonia due to COVID-19 virus Code(s): U07.1 - COVID-19; J12.89 - OTHER VIRAL PNEUMONIA Status: Acute Plan: See #1 above, continue Albuterol/Prednisone/O2 (3) Acute kidney injury superimposed on CKD Code(s): N17.9 - ACUTE KIDNEY FAILURE, UNSPECIFIED; N18.9 - CHRONIC KIDNEY DISEASE, UNSPECIFIED Status: Acute Plan: Continue maintenance HD 3x's/wk (4) Physical deconditioning Code(s): R53.81 - OTHER MALAISE Status: Chronic Plan: PT/OT for mobilization (5) Anemia of renal disease Code(s): D63.1 - ANEMIA IN CHRONIC KIDNEY DISEASE Status: Chronic (6) DM II (diabetes mellitus, type II), controlled Code(s): E11.9 - TYPE 2 DIABETES MELLITUS WITHOUT COMPLICATIONS Status: Chronic Plan: Continue ISS, Glargine 15u HS, serial accuchecks, ADA diet - Plan PT/OT, social science research assistant, speech therapy, respiratory therapy, out of bed/ambulate Continue pulmonary support O2 therapy with T-collar/trach Nutritional support with TF's PT for mobilization CM for SNF/LTAC options HD per Renal service AM lab: BMP, CBC
[2020-06-16] MEDS: Acetaminophen 650 MG/20.3 ML UDCUP PER TUBE PRN (21:50)
[2020-06-17] MEDS: traMADol HCl 50 MG TAB PO PRN (04:10)
[2020-06-17] MEDS: Carvedilol 6.25 MG TAB PER TUBE SCH ×3 (06:11→22:49)
[2020-06-17] MEDS: Mometasone 200 MCG/Formoterol 5 MCG 120 PUFF INHALER INH SCH ×2 (07:04→21:52)
[2020-06-17] MEDS: Fluconazole 100 MG TAB PO SCH (08:51)
[2020-06-17] MEDS: levETIRAcetam 500 MG TAB PER TUBE SCH ×2 (08:51→21:50)
[2020-06-17] MEDS: cloNIDine 0.2 MG TAB PER TUBE SCH ×2 (08:52→22:50)
[2020-06-17] MEDS: predniSONE 20 MG TAB PO SCH (08:52)
[2020-06-17] MEDS: Amlodipine 10 MG TAB PER TUBE SCH (08:53)
[2020-06-17] MEDS: Insulin Glargine 15 UNITS in Pre-Filled Syringe 1 EACH SC SCH (08:53)
[2020-06-17] MEDS: Pantoprazole 40 MG GRANULES PACKET PER TUBE SCH (08:53)
[2020-06-17] MEDS: Acetaminophen 650 MG/20.3 ML UDCUP PER TUBE PRN (09:09)
--- NOTE | 2020-06-17 12:52 | PRG ---
DATE OF SERVICE: 06/17/2020 SUBJECTIVE: Patient was seen and examined at bedside. Remains nonverbal. OBJECTIVE: General: This is a well-built female in no apparent distress. Vital Signs: Temperature 98.0. Heart Rate 50. Respiratory rate 24. Blood pressure 149/70. HEENT: Atraumatic, normocephalic. Neck: With trach present. Cardiovascular: S1, S2 heard. Respiratory: Clear. Gastrointestinal: Abdomen is soft. Musculoskeletal: 1+ edema. Dermatologic: No skin rash. Neurologic: Nonverbal. Psychiatric: Mood and affect normal. LABORATORY DATA: Not done today. ASSESSMENT AND PLAN: 1. End-stage renal disease. We will have dialysis on Thursday, Thursday, and Thursday. Recheck labs in the morning. 2. Edema. Remove fluid. Dialysis as tolerated. 3. Hypertension. 4. Anemia of chronic disease. Continue dialysis on Thursday, Thursday, and Thursday as tolerated. Job ID: [id number]
[2020-06-17] MEDS: Insulin Regular 300 UNITS/3 ML VIAL SC PRN ×2 (14:31→19:29)
--- NOTE | 2020-06-17 14:47 | PDOC.HOSPP ---
- Subjective Encounter Date: 06/17/20 Encounter Time: 14:45 Subjective: f/u COVID PNA/resp failure s/p Trach on T-collar. Receiving maintenance HD and tolerating. - Objective Vital Signs & Weight: Vital Signs (12 hours) Temp Pulse Pulse Pulse Resp BP BP 06/17/20 12:30 97.7 F 50 L 22 H 06/17/20 10:23 51 L 51 L 146/70 H 149/70 H 06/17/20 09:15 98.0 F 50 L 24 H 06/17/20 07:05 06/17/20 07:04 88 16 06/17/20 04:00 98.2 F 55 L 20 BP BP Pulse Ox Pulse Ox Pulse Ox 06/17/20 12:30 140/67 96 06/17/20 10:23 98 99 06/17/20 09:15 165/77 H 100 06/17/20 07:05 100 06/17/20 07:04 100 06/17/20 04:00 158/74 H 97 Weight Admit Weight 186 lb 4.8 oz Weight 193 lb 14.841 oz Most Recent Monitor Data Heart Rate from ECG 64 NIBP 136/65 NIBP BP-Mean 88 Respiration from ECG 14 SpO2 95 I&O: 06/16/20 06/17/20 06/18/20 06:59 06:59 06:59 Intake Total 1148 1770 Balance 1148 1770 Result Diagrams: 06/15/20 04:44 06/15/20 04:44 Additional Labs: Accuchecks 06/17/20 06/17/20 06/16/20 12:32 04:17 22:04 POC Glucose 173 H 145 H 182 H 06/16/20 17:01 POC Glucose 104 H Laboratory Tests 06/10/20 06/11/20 06/12/20 05:03 06:01 06:09 WBC 16.6 H 16.4 H 15.0 H Hgb 9.2 L 9.3 L 9.8 L 06/13/20 06/14/20 13:52 05:07 WBC 17.0 H 12.9 H Hgb 10.5 L 10.2 L EKG Reviewed by me: Yes (Tele - SR) Hospitalist ROS - Medication Medications: Active Medications Generic Name Dose Route Start Last Admin Trade Name Freq PRN Reason Stop Dose Admin Acetaminophen 650 mg 05/25/20 18:57 06/17/20 09:09 Acetaminophen 650 Mg/20.3 Ml Udcup PER TUBE 650 mg Q4H PRN Administration Fever > 101 Albuterol Sulfate 2 puff 05/05/20 03:59 05/05/20 07:40 Albuterol 200 Puff (6.7gm Inhaler) INH 2 puff [id number] PRN Administration Wheezing Amlodipine Besylate 10 mg 05/15/20 09:00 06/17/20 08:53 Amlodipine 10 Mg Tab PER TUBE 10 mg DAILY ESTER Administration Carvedilol 12.5 mg 06/08/20 21:00 06/17/20 09:42 Carvedilol 6.25 Mg Tab PER TUBE Not Given BID ESTER Clonidine 0.2 mg 05/27/20 21:00 06/17/20 08:52 Clonidine 0.2 Mg Tab PER TUBE 0.2 mg BID ESTER Administration Dextrose/Water 25 gm 05/13/20 09:28 06/16/20 05:48 Dextrose 50% Abboject 50 Ml Syringe SLOW IVP 25 gm PRN PRN Administration Hypoglycemia Epoetin Selwyn-epbx 10,000 unit 05/28/20 18:00 06/15/20 16:56 Epoetin Selwyn-Epbx (Esrd) 10,000 Unit/Ml Vial IVP 10,000 unit MoWeFr ESTER Administration Fluconazole 200 mg 06/10/20 09:00 06/17/20 08:51 Fluconazole 100 Mg Tab PO 200 mg DAILY ESTER Administration Insulin Glargine 15 units/ 0.15 mls @ 0 mls/hr 06/04/20 09:00 06/17/20 08:53 Miscellaneous Medication SC 0.15 mls QAM ESTER Administration Insulin Human Regular 0 units 05/13/20 09:28 06/17/20 14:31 Insulin Regular 300 Units/3 Ml Vial SC 2 unit .MODERATE SLIDING SC PRN Administration Moderate Correctional Scale Labetalol HCl 20 mg 05/12/20 05:37 05/29/20 11:27 Labetalol Hcl 100 Mg/20 Ml Vial SLOW IVP 20 mg Q4H PRN Administration SBP >170 Levetiracetam 500 mg 06/04/20 09:00 06/17/20 08:51 Levetiracetam 500 Mg Tab PER TUBE 500 mg BID ESTER Administration Mometasone Furoate/Formoterol Fumar 2 puff 05/09/20 18:30 06/17/20 07:04 Mometasone 200 Mcg/Formoterol 5 Mcg 120 Puff Inhaler INH 2 puff BID-RT ESTER Administration Ondansetron HCl 4 mg 05/03/20 17:50 05/23/20 16:00 Ondansetron Pf 4 Mg/2 Ml Vial IVP 4 mg Q6H PRN Administration Nausea/Vomiting Pantoprazole Sodium 40 mg 06/04/20 09:00 06/17/20 08:53 Pantoprazole 40 Mg Granules Packet PER TUBE 40 mg DAILY ESTER Administration Prednisone 10 mg 06/16/20 08:00 06/17/20 08:52 Prednisone 20 Mg Tab PO 10 mg QAM-WM ESTER Administration Sodium Chloride 10 ml 05/24/20 10:31 06/13/20 14:04 Flush - Normal Saline 10 Ml Syringe IVF 10 ml PRN PRN Administration Saline Flush Tramadol HCl 50 mg 06/11/20 14:53 06/17/20 04:10 Tramadol Hcl 50 Mg Tab PO 50 mg Q8H PRN Administration Pain Hospitalist Exam Vitals: Vital Signs (12 hours) Temp Pulse Pulse Pulse Resp BP BP 06/17/20 12:30 97.7 F 50 L 22 H 06/17/20 10:23 51 L 51 L 146/70 H 149/70 H 06/17/20 09:15 98.0 F 50 L 24 H 06/17/20 07:05 06/17/20 07:04 88 16 06/17/20 04:00 98.2 F 55 L 20 BP BP Pulse Ox Pulse Ox Pulse Ox 06/17/20 12:30 140/67 96 06/17/20 10:23 98 99 06/17/20 09:15 165/77 H 100 06/17/20 07:05 100 06/17/20 07:04 100 06/17/20 04:00 158/74 H 97 Weight Admit Weight 186 lb 4.8 oz Weight 193 lb 14.841 oz Most Recent Monitor Data Heart Rate from ECG 64 NIBP 136/65 NIBP BP-Mean 88 Respiration from ECG 14 SpO2 95 General Appearance: NAD, awake alert General - other findings: nods head to questions briefly Eye: anicteric sclera ENT: normocephalic atraumatic, no oropharyngeal lesions Neck: supple, symmetric, no JVD, no thyromegaly, no lymphadenopathy Neck - other findings: trach in place with T-collar Heart: RRR, no gallops, no rubs, normal peripheral pulses Heart - other findings: S1, S2 Respiratory: CTAB, no rales, no ronchi, normal chest expansion Gastrointestinal: soft, non-tender, non-distended, normal bowel sounds, no palpable masses Gastrointestinal - other findings: PEG in place Extremities: no cyanosis, no clubbing, no edema Skin: normal turgor Neurological: cranial nerve grossly intact, no focal deficits Musculoskeletal: normal tone, generalized weakness Psychiatric: oriented to person, flat affect, somnolent, lethargic Hosp A/P (1) Acute respiratory failure with hypoxia Code(s): J96.01 - ACUTE RESPIRATORY FAILURE WITH HYPOXIA Status: Acute Plan: Continue pulmonary support, trach care, T-collar (2) Pneumonia due to COVID-19 virus Code(s): U07.1 - COVID-19; J12.89 - OTHER VIRAL PNEUMONIA Status: Acute Plan: Resolving, continue pulmonary support, Prednisone/Albuterol (3) Acute kidney injury superimposed on CKD Code(s): N17.9 - ACUTE KIDNEY FAILURE, UNSPECIFIED; N18.9 - CHRONIC KIDNEY DISEASE, UNSPECIFIED Status: Acute (4) Physical deconditioning Code(s): R53.81 - OTHER MALAISE Status: Chronic (5) Anemia of renal disease Code(s): D63.1 - ANEMIA IN CHRONIC KIDNEY DISEASE Status: Chronic (6) DM II (diabetes mellitus, type II), controlled Code(s): E11.9 - TYPE 2 DIABETES MELLITUS WITHOUT COMPLICATIONS Status: Chronic - Plan PT/OT, social insurance adviser, speech therapy, respiratory therapy, DVT proph w/SCDs Continue pulmonary support O2 therapy with T-collar/trach Nutritional support with TF's PT for mobilization CM for SNF/LTAC options HD per Renal service AM lab: BMP, CBC
[2020-06-18] MEDS ORDERED: Heparin 5,000 UNITS/ML VIAL CATH PRN (06:19)
[2020-06-18] MEDS ORDERED: Heparin 10,000 UNITS/ 10 ML VIAL CATH PRN ×2 (06:56→07:15)
[2020-06-18] MEDS: Mometasone 200 MCG/Formoterol 5 MCG 120 PUFF INHALER INH SCH ×2 (07:14→19:02)
[2020-06-18 08:49] LABS: #Basophils 0.1 thou/uL (0.0-0.2); #Eosinphils 0.2 thou/uL (0.0-0.7); #Lymphocytes 1.6 thou/uL (1.20-3.40); #Monocytes 0.7 thou/uL (0.11-0.59); #Neutrophils 8.5 thou/uL (1.40-6.50); %Basophils 0.5 % (0.0-1.0); %Eosinophils 2.2 % (0.0-10.0); %Lymphocytes 14.4 % (21.0-51.0); %Monocytes 6.4 % (0.0-10.0); %Neutrophils 76.6 % (42.0-75.0); Hemoglobin 9.7 g/dL (12.0-16.0); Mean Corpuscular HGB CONC 31.9 g/dL (32.0-36.0); Mean Corpuscular Volume 94.2 fL (78.0-98.0); Mean Platelet Volume 7.6 fL (7.4-10.4); Platelet Count 379 thou/uL (130-400); RBC Distribution Width 16.7 % (11.5-14.5); Red Blood Cell (RBC) Count 3.22 mill/uL (4.20-5.40); White Blood Cell (WBC) Count 11.1 thou/uL (4.8-10.8)
[2020-06-18] MEDS: Carvedilol 6.25 MG TAB PER TUBE SCH ×2 (08:58→20:27)
[2020-06-18] MEDS: Fluconazole 100 MG TAB PO SCH (08:58)
[2020-06-18] MEDS: predniSONE 20 MG TAB PO SCH (08:59)
[2020-06-18] MEDS: Insulin Glargine 15 UNITS in Pre-Filled Syringe 1 EACH SC SCH (08:59)
[2020-06-18] MEDS: levETIRAcetam 500 MG TAB PER TUBE SCH ×2 (08:59→20:27)
[2020-06-18] MEDS: Pantoprazole 40 MG GRANULES PACKET PER TUBE SCH (08:59)
[2020-06-18 09:08] LABS: Anion Gap 18 mmol/L (10-20); BUN (Urea Nitrogen) 66 mg/dL (9.8-20.1); Calc. Creatinine Clearance 17 mL/min (70-130); Calcium 8.5 mg/dL (7.8-10.44); Carbon Dioxide 24 mmol/L (23-31); Chloride 92 mmol/L (98-107); Glucose 91 mg/dL (80-115); Potassium 4.2 mmol/L (3.5-5.1); Sodium 130 mmol/L (136-145)
[2020-06-18] MEDS ORDERED: Heparin 10,000 UNITS/ 10 ML VIAL ONE (09:43)
[2020-06-18] MEDS: cloNIDine 0.2 MG TAB PER TUBE SCH ×2 (09:47→20:27)
[2020-06-18] MEDS: Amlodipine 10 MG TAB PER TUBE SCH ×2 (09:47→18:20)
--- NOTE | 2020-06-18 11:40 | PRG ---
DATE OF SERVICE: 06/18/2020 SUBJECTIVE: Genia Reed was transferred from isolation room to the medical floor. OBJECTIVE: VITAL SIGNS: Temperature 98, pulse 62, respirations 20, trach collar sats 91%. GENERAL: She is still very encephalopathic. CHEST: No wheezing. No crackles. CARDIAC: Normal S1, S2. . LABORATORY DATA: Creatinine 4. IMPRESSION: 1. Respiratory failure, lim positive pneumonia, status post trach and PEG. 2. Chronic renal failure with encephalopathy. PLAN: Try to get a placement for her. Her long-term prognosis is grave. Pulmonary is going to follow at a distance. Call if needed. Still on low dose of prednisone. Job ID: [id number]
--- NOTE | 2020-06-18 12:53 | PRG ---
DATE OF SERVICE: 06/18/2020 SUBJECTIVE: A 70-year-old female, being seen for end-stage renal disease. The patient denied any nausea, vomiting, or chest pain. OBJECTIVE: GENERAL: The patient is awake and alert. VITAL SIGNS: Afebrile, pulse 62, breathing at 16, blood pressure 130/73. HEENT: Head normocephalic and atraumatic. Eyes intact, no ulcers. Nose intact, no ulcers. Ears intact, no ulcers. NECK: Supple. No JVD. CHEST: Symmetrical and clear. CARDIOVASCULAR: Shows S1 and S2, no rub, no murmur. GASTROINTESTINAL: Abdomen is soft, bowel sounds positive. EXTREMITIES: Show no edema or ulcers. SKIN: Shows no rash or petechiae. MUSCULOSKELETAL: Shows no joint swelling or stiffness. GENITOURINARY: Shows no Do or CVA tenderness. NEUROLOGIC: Motor intact. Cranial nerves intact. LABORATORY DATA: Reviewed. ASSESSMENT AND PLAN: 1. Stage 6 chronic kidney disease. Plan on dialysis. 2. Hypertension, stable. 3. Anemia, stable. 4. Medication based on GFR appropriate. Job ID: [id number]
--- NOTE | 2020-06-18 13:09 | PDOC.HOSPP ---
- Subjective Encounter Date: 06/18/20 Encounter Time: 12:50 Subjective: f/u for resp failure/COVID PNA/trach/PEG/ESRD with HD. Awaiting options for placement. Receiving HD today. - Objective Vital Signs & Weight: Vital Signs (12 hours) Temp Pulse Resp BP BP Pulse Ox 06/18/20 12:00 99.6 F 61 20 147/99 H 91 L 06/18/20 08:00 98.7 F 62 20 149/73 H 87 L 06/18/20 04:00 98.2 F 58 L 18 167/73 H 91 L Weight Admit Weight 186 lb 4.8 oz Weight 209 lb Most Recent Monitor Data Heart Rate from ECG 64 NIBP 136/65 NIBP BP-Mean 88 Respiration from ECG 14 SpO2 95 I&O: 06/17/20 06/18/20 06/19/20 06:59 06:59 06:59 Intake Total 1770 300 Balance 1770 300 Result Diagrams: 06/18/20 08:26 06/18/20 08:26 Additional Labs: Accuchecks 06/18/20 06/18/20 06/17/20 05:03 00:50 18:28 POC Glucose 117 H 168 H 221 H 06/16/20 06/16/20 18:41 05:46 POC Glucose 323 H 55 L* Laboratory Tests 06/10/20 06/11/20 06/12/20 05:03 06:01 06:09 WBC 16.6 H 16.4 H 15.0 H Hgb 9.2 L 9.3 L 9.8 L 06/13/20 06/14/20 13:52 05:07 WBC 17.0 H 12.9 H Hgb 10.5 L 10.2 L Hospitalist ROS - Medication Medications: Active Medications Generic Name Dose Route Start Last Admin Trade Name Freq PRN Reason Stop Dose Admin Acetaminophen 650 mg 05/25/20 18:57 06/17/20 09:09 Acetaminophen 650 Mg/20.3 Ml Udcup PER TUBE 650 mg Q4H PRN Administration Fever > 101 Albuterol Sulfate 2 puff 05/05/20 03:59 05/05/20 07:40 Albuterol 200 Puff (6.7gm Inhaler) INH 2 puff [id number] PRN Administration Wheezing Amlodipine Besylate 10 mg 05/15/20 09:00 02/08/21 09:47 Amlodipine 10 Mg Tab PER TUBE Not Given DAILY ESTER Carvedilol 12.5 mg 06/08/20 21:00 06/18/20 08:58 Carvedilol 6.25 Mg Tab PER TUBE 12.5 mg BID ESTER Administration Clonidine 0.2 mg 05/27/20 21:00 06/18/20 09:47 Clonidine 0.2 Mg Tab PER TUBE Not Given BID ESTER Dextrose/Water 25 gm 05/13/20 09:28 06/16/20 05:48 Dextrose 50% Abboject 50 Ml Syringe SLOW IVP 25 gm PRN PRN Administration Hypoglycemia Epoetin Selwyn-epbx 10,000 unit 05/28/20 18:00 06/15/20 16:56 Epoetin Selwyn-Epbx (Esrd) 10,000 Unit/Ml Vial IVP 10,000 unit MoWeFr ESTER Administration Fluconazole 200 mg 06/10/20 09:00 06/18/20 08:58 Fluconazole 100 Mg Tab PO 200 mg DAILY ESTER Administration Insulin Glargine 15 units/ 0.15 mls @ 0 mls/hr 06/04/20 09:00 06/18/20 08:59 Miscellaneous Medication SC 0.15 mls QAM ESTER Administration Insulin Human Regular 0 units 05/13/20 09:28 06/17/20 19:29 Insulin Regular 300 Units/3 Ml Vial SC 4 unit .MODERATE SLIDING SC PRN Administration Moderate Correctional Scale Labetalol HCl 20 mg 05/12/20 05:37 05/29/20 11:27 Labetalol Hcl 100 Mg/20 Ml Vial SLOW IVP 20 mg Q4H PRN Administration SBP >170 Levetiracetam 500 mg 06/04/20 09:00 06/18/20 08:59 Levetiracetam 500 Mg Tab PER TUBE 500 mg BID ESTER Administration Mometasone Furoate/Formoterol Fumar 2 puff 05/09/20 18:30 06/18/20 07:14 Mometasone 200 Mcg/Formoterol 5 Mcg 120 Puff Inhaler INH 2 puff BID-RT ESTER Administration Ondansetron HCl 4 mg 05/03/20 17:50 05/23/20 16:00 Ondansetron Pf 4 Mg/2 Ml Vial IVP 4 mg Q6H PRN Administration Nausea/Vomiting Pantoprazole Sodium 40 mg 06/04/20 09:00 06/18/20 08:59 Pantoprazole 40 Mg Granules Packet PER TUBE 40 mg DAILY ESTER Administration Prednisone 10 mg 06/16/20 08:00 06/18/20 08:59 Prednisone 20 Mg Tab PO 10 mg QAM-WM ESTER Administration Sodium Chloride 10 ml 05/24/20 10:31 06/13/20 14:04 Flush - Normal Saline 10 Ml Syringe IVF 10 ml PRN PRN Administration Saline Flush Tramadol HCl 50 mg 06/11/20 14:53 06/17/20 04:10 Tramadol Hcl 50 Mg Tab PO 50 mg Q8H PRN Administration Pain Hospitalist Exam Vitals: Vital Signs (12 hours) Temp Pulse Resp BP BP Pulse Ox 06/18/20 12:00 99.6 F 61 20 147/99 H 91 L 06/18/20 08:00 98.7 F 62 20 149/73 H 87 L 06/18/20 04:00 98.2 F 58 L 18 167/73 H 91 L Weight Admit Weight 186 lb 4.8 oz Weight 209 lb Most Recent Monitor Data Heart Rate from ECG 64 NIBP 136/65 NIBP BP-Mean 88 Respiration from ECG 14 SpO2 95 General Appearance: NAD, awake alert Eye: PERRL, anicteric sclera ENT: normocephalic atraumatic, no oropharyngeal lesions, moist mucosa Neck: supple, symmetric, no JVD, no thyromegaly, no lymphadenopathy Neck - other findings: trach in place with T-piece Heart: RRR, no gallops, no rubs, normal peripheral pulses Heart - other findings: S1, S2 Respiratory: CTAB, no wheezes, no rales, no ronchi, normal chest expansion Gastrointestinal: soft, non-tender, non-distended, normal bowel sounds, no palpable masses Extremities: no cyanosis, no edema Skin: normal turgor Musculoskeletal: normal tone, generalized weakness Psychiatric: flat affect, somnolent Hosp A/P (1) Acute respiratory failure with hypoxia Code(s): J96.01 - ACUTE RESPIRATORY FAILURE WITH HYPOXIA Status: Acute Plan: Continue pulm support with trach/T-piece (2) Pneumonia due to COVID-19 virus Code(s): U07.1 - COVID-19; J12.89 - OTHER VIRAL PNEUMONIA Status: Acute (3) Acute kidney injury superimposed on CKD Code(s): N17.9 - ACUTE KIDNEY FAILURE, UNSPECIFIED; N18.9 - CHRONIC KIDNEY DISEASE, UNSPECIFIED Status: Acute Plan: HD per Renal service (4) Physical deconditioning Code(s): R53.81 - OTHER MALAISE Status: Chronic Plan: PT/OT for mobilization, awaiting LTAC options (5) Anemia of renal disease Code(s): D63.1 - ANEMIA IN CHRONIC KIDNEY DISEASE Status: Chronic Plan: Continue Epo weekly (6) DM II (diabetes mellitus, type II), controlled Code(s): E11.9 - TYPE 2 DIABETES MELLITUS WITHOUT COMPLICATIONS Status: Chronic Plan: ISS, Lantus 15u daily - Plan PT/OT, rn social services, speech therapy, respiratory therapy, DVT proph w/SCDs Continue pulmonary support O2 therapy with T-collar/trach Nutritional support with TF's PT for mobilization CM for SNF/LTAC options HD per Renal service AM lab: BMP, CBC
[2020-06-18] MEDS ORDERED: Propofol 1,000 MG/100 ML VIAL IV ONE (14:08)
[2020-06-18] MEDS ORDERED: Fentanyl 100 MCG/2 ML VIAL ONE (14:08)
[2020-06-18] MEDS ORDERED: Heparin 5,000 UNITS/ML VIAL ONE (14:11)
[2020-06-18] MEDS ORDERED: Bupivacaine PF 0.5% 30 ML VIAL ONE (14:11)
[2020-06-18] MEDS ORDERED: XYLOCAINE 2%-EPI 1:100,000 20 ML VIAL ONE (14:11)
[2020-06-18] MEDS ORDERED: Protamine Sulfate 50 MG/5 ML VIAL ONE (14:11)
--- NOTE | 2020-06-18 14:52 | PRG ---
DATE OF SERVICE: 06/18/2020 Genia Reed was seen last week and discussed left arm fistula or graft. Veins are actually poor. It is highly likely that she will need a prosthetic graft. She has palpable radial and ulnar pulses in left. She has trach collar. Over the weekend, I was [employer] to inform me that the family want to talk to me. I tried to call her son, Jimenez on three different occasions, left my cell phone number. This morning when the patient arrived in preop holding, consents had not been signed. Family requested to talk to me. I talked to Jimenez per cellphone. Per his request, I talked to his mother again. The patient would not consent to surgery at this time. Family will talk to her. The patient has an LTAC transfer pending. The patient can be transferred to LTAC at any time. Her left arm dialysis fistula or graft can be placed at a later time. If she is still here and the family consents, we can do that next week. I will be out of town and not working and Thursday this week. They can be done in the future as an outpatient. Job ID: [id number]
[2020-06-18] MEDS ORDERED: Heparin 1,000 UNITS/ML VIAL ONE (14:59)
[2020-06-18] MEDS: Labetalol HCl 100 MG/20 ML VIAL SLOW IVP PRN (17:17)
[2020-06-18] MEDS: EPOETIN ALFA-EPBX (ESRD) 10,000 UNIT/ML VIAL IVP SCH (18:20)
[2020-06-19] MEDS: Mometasone 200 MCG/Formoterol 5 MCG 120 PUFF INHALER INH SCH (07:05)
[2020-06-19] MEDS: levETIRAcetam 500 MG TAB PER TUBE SCH (08:19)
[2020-06-19] MEDS: Fluconazole 100 MG TAB PO SCH (08:20)
[2020-06-19] MEDS: cloNIDine 0.2 MG TAB PER TUBE SCH (08:20)
[2020-06-19] MEDS: Carvedilol 6.25 MG TAB PER TUBE SCH (08:21)
[2020-06-19] MEDS: Pantoprazole 40 MG GRANULES PACKET PER TUBE SCH (08:21)
[2020-06-19] MEDS: predniSONE 20 MG TAB PO SCH (08:21)
[2020-06-19] MEDS: Amlodipine 10 MG TAB PER TUBE SCH (08:21)
[2020-06-19] MEDS: Insulin Glargine 15 UNITS in Pre-Filled Syringe 1 EACH SC SCH (09:41)
--- NOTE | 2020-06-19 15:43 | PRG ---
DATE OF SERVICE: 06/19/2020 SUBJECTIVE: A 70-year-old lady, being seen for end-stage renal disease. The patient denied nausea, vomiting, or chest pain. PHYSICAL EXAMINATION: GENERAL: The patient is awake and alert. VITAL SIGNS: Afebrile, pulse 75, breathing at 16, blood pressure 119/70. HEENT: Head normocephalic and atraumatic. Eyes intact, no ulcers. Nose intact, no ulcers. Ears intact, no ulcers. NECK: Supple. No JVD. CHEST: Symmetrical and clear. CARDIOVASCULAR: Shows S1 and S2, no rub, no murmur. GASTROINTESTINAL: Abdomen is soft, bowel sounds positive. EXTREMITIES: Show no edema or ulcers. SKIN: Shows no rash or petechiae. MUSCULOSKELETAL: Shows no joint swelling or stiffness. GENITOURINARY: Shows no Do or CVA tenderness. NEUROLOGIC: Motor intact. Cranial nerves intact. LABORATORY DATA: Reviewed. ASSESSMENT AND PLAN: 1. Chronic kidney disease, stage 6. Plan dialysis. 2. Hypertension, stable. 3. Anemia, stable. Medication based on GFR appropriate. Job ID: [id number]
[2020-06-19] MEDS: traMADol HCl 50 MG TAB PO PRN (16:11)
[2020-06-19 16:24] VITALS: BP 147/75; TEMP 99
[2020-06-19] MEDS ORDERED: ALPRAZolam 0.25 MG TAB PER TUBE SCH (17:00)
--- NOTE | 2020-06-20 08:05 | DIS ---
DATE OF ADMISSION: 05/01/2020 DATE OF DISCHARGE: 06/19/2020 DISCHARGE DIAGNOSES: 1. Pneumonia due to COVID-19. 2. Acute hypoxic respiratory failure secondary to pneumonia due to COVID-19. 3. Status post tracheostomy and percutaneous endoscopic gastrostomy tube placement on 05/29/2020. 4. End-stage renal disease with hemodialysis. 5. Candidemia, improved. 6. Pseudomonas aeruginosa bacteremia, resolved. 7. Hypertension. 8. Peripheral neuropathy. 9. Severe deconditioning. 10. Metabolic encephalopathy. CONSULTATIONS: 1. Dr. Marin with General Surgery Service. 2. Dr. Wilkes, Dr. Conway, and Dr. De La Torre with Pulmonology/Critical Care Service. 3. Dr. Courtney with Nephrology Service. 4. Dr. Gustafson with Infectious Disease Service. PERTINENT LABORATORY AND X-RAY FINDINGS: COVID-19 PCR detected 05/01/2020. Hepatitis B and C nonreactive 05/15/2020. Veronica glabrata isolated 06/12/2020. Vitamin B12 level 311. Folate level 6.4. Free T4 level 1.10. TSH ranged between 0.14 to 0.28. CBC showed a white blood cell count of 11.1, hemoglobin 9.7, hematocrit 30.3, and platelet count 379 on 06/18/2020. Blood cultures dated 05/01/2020, showed no growth at 5 days. Urine culture dated 05/10/2020, showed no growth at 48 hours. Blood cultures x2 dated 05/25/2020 showed no growth at 5 days. Central line catheter tip culture dated 05/27/2020 positive for Pseudomonas aeruginosa. C difficile antigen and toxin dated 06/02/2020 negative. Blood cultures 1/2 positive for yeast species on 06/06/2020. Respiratory culture positive for Pseudomonas aeruginosa, 06/07/2020. Portable chest x-ray dated 05/01/2021 showed bilateral lower lobe infiltrates. EGD dated 05/24/2020, showed nasogastric tube trauma of the stomach with deep ulcer along the greater curve of the distal body without active bleeding. Small 5-mm ulcer with visible vessel and active bleeding, treated with epinephrine and cauterization. Mild gastritis. CT of the brain without contrast dated 05/23/2020 showed no acute process. HOSPITAL COURSE: The patient was initially admitted after presenting on 05/02/2020 for fever, cough, and shortness of breath. The patient with positive COVID-19 PCR, placed on isolation protocol. The patient initially treated with azithromycin and Rocephin for suspected pneumonia as well as IV Decadron. The patient was initially held on remdesivir due to chronic kidney disease and elevated creatinine of 2.44. The patient continued to receive appropriate pulmonary supportive care for COVID-19 and received empiric Rocephin and azithromycin. The patient continued to clinically decompensate due to the COVID-19 pneumonia requiring increasing oxygen supplementation with eventual high-flow oxygen modality. Due to progressive respiratory failure, the patient underwent evaluation by the Pulmonology/Critical Care Service, at which point, the patient was intubated and placed on mechanical ventilation. The patient continued receiving IV dexamethasone with aggressive pulmonary supportive care without clinical improvement. The patient remained on mechanical ventilation, but was unable to successfully wean off the therapy. Due to prolonged intubation, the decision was made to proceed with tracheostomy placement on 05/29/2020, in addition to a PEG tube. The patient continued to receive pulmonary supportive management as well as nutritional support, but remained severely deconditioned due to ICU encephalopathy and myopathy. The patient also developed gastrointestinal hemorrhage during the hospital course to likely due to NG tube suction device and small ulcer treated with epinephrine and cauterization. The patient received a total of 8 units of packed red blood cells and 8 units of fresh frozen plasma during the hospital course. The patient continued to receive gastric prophylaxis with Protonix with eventual stabilization of hemoglobin values. The patient did have multiple complications due to the prolonged hospital course of 49 days including development of bacteremia with Pseudomonas species and Veronica. The patient was evaluated by the Infectious Disease Service with appropriate therapy targeting these organisms. The patient also underwent tunneled hemodialysis catheter placement and continued maintenance hemodialysis throughout the hospital course. The patient was managed by the Nephrology Service with successful hemodialysis therapy. The patient was also treated by the Physical, Occupational, and Speech Therapy Service due to severe deconditioning. The patient was deemed an appropriate candidate for ongoing skilled care with long-term acute care as the most viable option. The patient has been approved and will transfer to [facility] in [facility] 06/19/2020. I have examined the patient at the time of discharge with followup instructions given. The patient ready for transfer on 06/19/2020. DISCHARGE MEDICATIONS: 1. Alprazolam 0.5 mg p.o. b.i.d. 2. Ambien 10 mg p.o. at bedtime. 3. Carvedilol 6.25 mg p.o. b.i.d. 4. Catapres 0.2 mg p.o. b.i.d. 5. Hydralazine 75 mg p.o. t.i.d. 6. Lipitor 20 mg p.o. daily. 7. Norvasc 10 mg p.o. daily. 8. Tramadol 50 mg p.o. at bedtime. 9. Creon 12,000 units one capsule for obstructed PEG tube. 10. Diflucan 200 mg p.o. daily x2 weeks, then discontinue. 11. Dulera 200/5 mcg two puffs inhaled b.i.d. 12. Keppra 500 mg p.o. b.i.d. 13. Glargine insulin 15 units subcutaneously q.a.m. 14. Norvasc 10 mg p.o. daily. 15. Prednisone 10 mg p.o. q.a.m. 16. Protonix 40 mg p.o. daily. 17. Albuterol sulfate 2 puffs inhaled q.4 hours. 18. Epoetin 10,000 units on Thursday, Thursday, and Thursday. FOLLOWUP: The patient may follow up with her primary care provider, Dr. Josse Simpson, after discharge from long-term acute care. CONDITION ON DISCHARGE: Fair. ACTIVITY: Ad-rhonda. Maximal assistance with sitting at the edge of bed and bed exercises. High fall risk precautions. DIET: ADA and renal. CODE STATUS: Full. DISPOSITION: Discharged to [facility] in [facility] on 06/19/2020. TIME SPENT: Total time preparing and coordinating discharge, 45 minutes. Job ID: [id number]
== END 2020-06-19 17:54 | DRG 4 ==
LOC: ERS 19:32 → ERHOLD 22:14 → 2SW 05-02 03:01 → CCU 05-12 20:45 → 2SW 06-02 12:51 → T4-B 06-17 20:59
PROVIDERS: ADMIT Student in an Organized Health Care Education/Training Program; ATTEND Family Medicine
PROC: 8E0ZXY6 Isolation (ICD-10-PCS; 2020-05-01)
PROC: 5A1955Z Respiratory Ventilation, Greater than 96 Consecutive Hours (ICD-10-PCS; 2020-05-12)
PROC: 0BH17EZ Insertion of Endotracheal Airway into Trachea, Via Natural or Artificial Opening (ICD-10-PCS; 2020-05-12)
PROC: 06HY33Z Insertion of Infusion Device into Lower Vein, Percutaneous Approach (ICD-10-PCS; 2020-05-12)
PROC: 3E033XZ Introduction of Vasopressor into Peripheral Vein, Percutaneous Approach (ICD-10-PCS; 2020-05-12)
PROC: 0D9670Z Drainage of Stomach with Drainage Device, Via Natural or Artificial Opening (ICD-10-PCS; 2020-05-12)
PROC: 5A1D70Z Performance of Urinary Filtration, Intermittent, Less than 6 Hours Per Day (ICD-10-PCS; 2020-05-15)
PROC: 06HY33Z Insertion of Infusion Device into Lower Vein, Percutaneous Approach (ICD-10-PCS; 2020-05-15)
PROC: 30233N1 Transfusion of Nonautologous Red Blood Cells into Peripheral Vein, Percutaneous Approach (ICD-10-PCS; 2020-05-18)
PROC: 30233L1 Transfusion of Nonautologous Fresh Plasma into Peripheral Vein, Percutaneous Approach (ICD-10-PCS; 2020-05-23)
PROC: 30233R1 Transfusion of Nonautologous Platelets into Peripheral Vein, Percutaneous Approach (ICD-10-PCS; 2020-05-24)
PROC: 0W3P8ZZ Control Bleeding in Gastrointestinal Tract, Via Natural or Artificial Opening Endoscopic (ICD-10-PCS; 2020-05-25)
PROC: 0B110F4 Bypass Trachea to Cutaneous with Tracheostomy Device, Open Approach (ICD-10-PCS; principal; 2020-05-29)
PROC: 0DH63UZ Insertion of Feeding Device into Stomach, Percutaneous Approach (ICD-10-PCS; 2020-05-29)
PROC: 0JH63XZ Insertion of Tunneled Vascular Access Device into Chest Subcutaneous Tissue and Fascia, Percutaneous Approach (ICD-10-PCS; 2020-05-29)
PROC: 02H633Z Insertion of Infusion Device into Right Atrium, Percutaneous Approach (ICD-10-PCS; 2020-05-29)
PROC: B548ZZA Ultrasonography of Superior Vena Cava, Guidance (ICD-10-PCS; 2020-05-29)
DX: A41.89 Other specified sepsis (principal); T80.211A Bloodstream infection due to central venous catheter, initial encounter; U07.1 COVID-19; J12.82 Pneumonia due to coronavirus disease 2019; J96.21 Acute and chronic respiratory failure with hypoxia; N18.6 End stage renal disease; N17.0 Acute kidney failure with tubular necrosis; G93.41 Metabolic encephalopathy; D65 Disseminated intravascular coagulation [defibrination syndrome]; K29.01 Acute gastritis with bleeding; K25.4 Chronic or unspecified gastric ulcer with hemorrhage; I13.2 Hypertensive heart and chronic kidney disease with heart failure and with stage 5 chronic kidney disease, or end stage renal disease; E87.2 Acidosis; I42.9 Cardiomyopathy, unspecified; D62 Acute posthemorrhagic anemia; E46 Unspecified protein-calorie malnutrition; E87.1 Hypo-osmolality and hyponatremia; B37.89 Other sites of candidiasis; E87.0 Hyperosmolality and hypernatremia; Z51.5 Encounter for palliative care; E11.22 Type 2 diabetes mellitus with diabetic chronic kidney disease; E11.51 Type 2 diabetes mellitus with diabetic peripheral angiopathy without gangrene; E78.5 Hyperlipidemia, unspecified; E78.00 Pure hypercholesterolemia, unspecified; I50.9 Heart failure, unspecified; I25.10 Atherosclerotic heart disease of native coronary artery without angina pectoris; K59.09 Other constipation; D52.9 Folate deficiency anemia, unspecified; D63.1 Anemia in chronic kidney disease; F41.9 Anxiety disorder, unspecified; G47.00 Insomnia, unspecified; E11.65 Type 2 diabetes mellitus with hyperglycemia; E66.01 Morbid (severe) obesity due to excess calories; K20.90 Esophagitis, unspecified without bleeding; K94.21 Gastrostomy hemorrhage; Y83.8 Other surgical procedures as the cause of abnormal reaction of the patient, or of later complication, without mention of misadventure at the time of the procedure; E87.6 Hypokalemia; R13.10 Dysphagia, unspecified; E83.51 Hypocalcemia; G93.89 Other specified disorders of brain; R56.9 Unspecified convulsions; A41.52 Sepsis due to Pseudomonas; Y84.8 Other medical procedures as the cause of abnormal reaction of the patient, or of later complication, without mention of misadventure at the time of the procedure; T38.0X5A Adverse effect of glucocorticoids and synthetic analogues, initial encounter; Z99.2 Dependence on renal dialysis; Z88.1 Allergy status to other antibiotic agents; Z88.8 Allergy status to other drugs, medicaments and biological substances; Z79.899 Other long term (current) drug therapy; Z79.4 Long term (current) use of insulin; Z98.51 Tubal ligation status; Z91.14 Patient's other noncompliance with medication regimen; Z91.19 Patient's noncompliance with other medical treatment and regimen; Z68.31 Body mass index [BMI] 31.0-31.9, adult; E87.70 Fluid overload, unspecified; E11.42 Type 2 diabetes mellitus with diabetic polyneuropathy; T46.5X6A Underdosing of other antihypertensive drugs, initial encounter
CPT/HCPCS: 0240U; 36415; 36416; 36430; 36600; 70450; 71045; 80048; 80053; 80069; 80076; 82550; 82553; 82565; 82607; 82728; 82746; 82805; 83605; 83735; 83880; 83921; 84439; 84443; 84484; 85014; 85018; 85025; 85027; 85049; 85300; 85362; 85379; 85384; 85610; 85730; 86140; 86704; 86706; 86803; 86850; 86900; 86901; 87040; 87070; 87071; 87077; 87086; 87106; 87186; 87205; 87324; 87340; 87449; 90935; 93005; 93010; 93970; 94002; 94003; 94640; 94664; 94760; 95712; 95819; 95957; 96365; 96367; 96375; C1752; C9113; G0257; J0171; J0456; J0692; J0696; J1100; J1450; J1642; J1644; J1815; J1885; J1953; J2060; J2185; J2250; J2405; J2543; J2597; J2704; J2720; J2765; J2920; J3010; J3430; J3490; J7050; J7070; J7512; J8540; P9016; P9035; P9047; P9059; Q0162; Q5105; S0020; S0028

== ENCOUNTER 2020-08-03 14:52 | Emergency (ER) | payer MEDICARE | END 2020-08-03 16:23 | disposition home or self-care (01) | LOC: ERS 14:52 | DX: R53.1 Weakness (principal); E78.5 Hyperlipidemia, unspecified; E78.00 Pure hypercholesterolemia, unspecified; I25.10 Atherosclerotic heart disease of native coronary artery without angina pectoris; E11.22 Type 2 diabetes mellitus with diabetic chronic kidney disease; I13.0 Hypertensive heart and chronic kidney disease with heart failure and stage 1 through stage 4 chronic kidney disease, or unspecified chronic kidney disease; N18.9 Chronic kidney disease, unspecified; I50.9 Heart failure, unspecified; G62.9 Polyneuropathy, unspecified; Z79.4 Long term (current) use of insulin; Z79.899 Other long term (current) drug therapy | CPT/HCPCS: 99281 ==

== ENCOUNTER 2020-08-22 14:30 | Inpatient (IN) | payer MEDICARE ==
[2020-08-22 15:36] LABS: #Basophils 0.1 thou/uL (0.0-0.2); #Eosinphils 0.3 thou/uL (0.0-0.7); #Monocytes 0.7 thou/uL (0.11-0.59); #Neutrophils 4.7 thou/uL (1.40-6.50); %Basophils 1.3 % (0.0-1.0); %Eosinophils 3.4 % (0.0-10.0); %Lymphocytes 26.2 % (21.0-51.0); %Monocytes 8.9 % (0.0-10.0); %Neutrophils 60.2 % (42.0-75.0); Hemoglobin 12.3 g/dL (12.0-16.0); Mean Corpuscular HGB CONC 30.6 g/dL (32.0-36.0); Mean Corpuscular Volume 91.7 fL (78.0-98.0); Mean Platelet Volume 6.8 fL (7.4-10.4); Platelet Count 429 thou/uL (130-400); RBC Distribution Width 13.3 % (11.5-14.5); Red Blood Cell (RBC) Count 4.39 mill/uL (4.20-5.40); White Blood Cell (WBC) Count 7.8 thou/uL (4.8-10.8)
[2020-08-22 15:41] LABS: Prothrombin Time 13.1 sec (12.0-14.7)
[2020-08-22] MEDS ORDERED: Promethazine HCl 25 MG/ML VIAL ONE (15:42)
[2020-08-22 15:57] LABS: ALT (SGPT) Less than 7 U/L (8-55); AST (SGOT) 22 U/L (5-34); Albumin 3.4 g/dL (3.4-4.8); Alkaline Phosphatase 105 U/L (40-110); Anion Gap 18 mmol/L (10-20); BUN (Urea Nitrogen) 13 mg/dL (9.8-20.1); Bilirubin, Total 0.9 mg/dL (0.2-1.2); Calc. Creatinine Clearance 0 mL/min (70-130); Calcium 9.3 mg/dL (7.8-10.44); Carbon Dioxide 30 mmol/L (23-31); Chloride 97 mmol/L (98-107); Globulin 3.5 g/dL (2.4-3.5); Glucose 83 mg/dL (80-115); Lipase 19 U/L (8-78); Potassium 3.2 mmol/L (3.5-5.1); Protein, Total 6.9 g/dL (5.8-8.1); Sodium 142 mmol/L (136-145)
[2020-08-22 16:21] LABS: CKMB 6.8 ng/mL (0-6.6)
[2020-08-22] MEDS ORDERED: Aspirin 325 MG TAB ONE (17:00)
[2020-08-22] MEDS ORDERED: Nitroglycerin 0.4 MG TAB (25 Tab Bottle) SL PRN (18:18)
[2020-08-22] MEDS ORDERED: HumaLOG 300 UNITS/3 ML VIAL SC PRN ×2 (18:24)
[2020-08-22] MEDS ORDERED: Dextrose 5% in Water 1,000 ML IV PRN (18:24)
[2020-08-22] MEDS ORDERED: Ondansetron ODT 4 MG TAB PO PRN (18:25)
[2020-08-22] MEDS ORDERED: Senokot S 8.6-50 MG TAB PO PRN (18:25)
[2020-08-22] MEDS ORDERED: Acetaminophen 325 MG TAB PO PRN (18:25)
[2020-08-22] MEDS ORDERED: Ondansetron PF 4 MG/2 ML Vial IVP PRN (18:25)
[2020-08-22] MEDS ORDERED: Famotidine 20 MG TAB PO SCH (21:00)
[2020-08-22 21:14] VITALS: BMI 22.2
[2020-08-22 21:15] LABS: Troponin I 0.235 ng/mL (< 0.028)
[2020-08-22] MEDS ORDERED: Enoxaparin Sodium 80 MG/0.8 ML SYRINGE SC SCH (21:45)
[2020-08-23] MEDS: Dextrose 50% Abboject 50 ML SYRINGE SLOW IVP PRN ×2 (00:22→05:51)
[2020-08-23] MEDS ORDERED: Albuterol 200 PUFF (6.7GM INHALER) INH PRN (00:40)
[2020-08-23 00:43] LABS: Troponin I 0.248 ng/mL (< 0.028)
[2020-08-23 05:14] LABS: #Basophils 0.1 thou/uL (0.0-0.2); #Eosinphils 0.2 thou/uL (0.0-0.7); #Monocytes 0.7 thou/uL (0.11-0.59); #Neutrophils 4.3 thou/uL (1.40-6.50); %Basophils 1.4 % (0.0-1.0); %Eosinophils 3.1 % (0.0-10.0); %Lymphocytes 27.6 % (21.0-51.0); %Monocytes 9.4 % (0.0-10.0); %Neutrophils 58.5 % (42.0-75.0); Hemoglobin 11.9 g/dL (12.0-16.0); Mean Corpuscular HGB CONC 30.1 g/dL (32.0-36.0); Mean Corpuscular Hemoglobin 27.6 pg (27.0-31.0); Mean Corpuscular Volume 91.7 fL (78.0-98.0); Mean Platelet Volume 7.3 fL (7.4-10.4); Platelet Count 373 thou/uL (130-400); RBC Distribution Width 13.4 % (11.5-14.5); Red Blood Cell (RBC) Count 4.31 mill/uL (4.20-5.40); White Blood Cell (WBC) Count 7.4 thou/uL (4.8-10.8)
[2020-08-23 05:33] LABS: Anion Gap 19 mmol/L (10-20); BUN (Urea Nitrogen) 17 mg/dL (9.8-20.1); Calc. Creatinine Clearance 11 mL/min (70-130); Carbon Dioxide 28 mmol/L (23-31); Chloride 100 mmol/L (98-107); Cholesterol 274 mg/dl (< 200 Desired); HDL Cholesterol 69 mg/dL (>60 Neg Risk); LDL Cholesterol, Calculated 184 mg/dL; Sodium 144 mmol/L (136-145); Triglycerides 105 mg/dL (Less than 150)
[2020-08-23 05:41] LABS: Glucose 55 mg/dL (80-115); Potassium 2.8 mmol/L (3.5-5.1)
[2020-08-23] MEDS ORDERED: Potassium Chloride 20 MEQ in Premix Bag 1 BAG IVPB SCH (08:00)
[2020-08-23] MEDS: predniSONE 20 MG TAB PO SCH (08:38)
[2020-08-23] MEDS: Carvedilol 6.25 MG TAB PO SCH ×2 (08:39→20:59)
[2020-08-23] MEDS ORDERED: Aspirin Chewable 81 MG TAB PO SCH (09:00)
[2020-08-23] MEDS ORDERED: Famotidine/PF 20 mg/2ml Vial SLOW IVP SCH (09:00)
[2020-08-23] MEDS ORDERED: Potassium Chloride 20 MEQ TAB PO SCH (09:30)
[2020-08-23 10:08] LABS: SARS-CoV-2 PCR by NAA Not Detected (NotDetected)
[2020-08-23] MEDS ORDERED: Communication Order-Pharmacy FS SCH (11:45)
[2020-08-23 14:47] LABS: Anion Gap 19 mmol/L (10-20); BUN (Urea Nitrogen) 19 mg/dL (9.8-20.1); Calc. Creatinine Clearance 10 mL/min (70-130); Calcium 8.7 mg/dL (7.8-10.44); Carbon Dioxide 25 mmol/L (23-31); Chloride 102 mmol/L (98-107); Glucose 171 mg/dL (80-115); Potassium 4.2 mmol/L (3.5-5.1); Sodium 142 mmol/L (136-145)
[2020-08-23] MEDS ORDERED: Melatonin 3 MG TAB PO PRN (20:20)
[2020-08-23] MEDS ORDERED: Amlodipine 10 MG TAB PO SCH (21:00)
[2020-08-24 04:50] LABS: #Basophils 0.1 thou/uL (0.0-0.2); #Eosinphils 0.2 thou/uL (0.0-0.7); #Lymphocytes 2.2 thou/uL (1.20-3.40); #Monocytes 0.8 thou/uL (0.11-0.59); #Neutrophils 4.3 thou/uL (1.40-6.50); %Basophils 0.8 % (0.0-1.0); %Eosinophils 2.1 % (0.0-10.0); %Lymphocytes 28.9 % (21.0-51.0); %Monocytes 10.8 % (0.0-10.0); %Neutrophils 57.3 % (42.0-75.0); Hemoglobin 10.9 g/dL (12.0-16.0); Mean Corpuscular HGB CONC 30.6 g/dL (32.0-36.0); Mean Corpuscular Hemoglobin 28.3 pg (27.0-31.0); Mean Corpuscular Volume 92.6 fL (78.0-98.0); Mean Platelet Volume 7.2 fL (7.4-10.4); Platelet Count 346 thou/uL (130-400); RBC Distribution Width 13.3 % (11.5-14.5); Red Blood Cell (RBC) Count 3.85 mill/uL (4.20-5.40); White Blood Cell (WBC) Count 7.5 thou/uL (4.8-10.8)
[2020-08-24 05:15] LABS: Anion Gap 14 mmol/L (10-20); BUN (Urea Nitrogen) 23 mg/dL (9.8-20.1); Calc. Creatinine Clearance 9 mL/min (70-130); Calcium 8.4 mg/dL (7.8-10.44); Carbon Dioxide 29 mmol/L (23-31); Chloride 101 mmol/L (98-107); Glucose 93 mg/dL (80-115); Magnesium 2.1 mg/dL (1.6-2.6); Potassium 3.3 mmol/L (3.5-5.1); Sodium 141 mmol/L (136-145)
[2020-08-24] MEDS: predniSONE 20 MG TAB PO SCH (06:23)
[2020-08-24] MEDS: Carvedilol 6.25 MG TAB PO SCH (06:23)
[2020-08-24] MEDS ORDERED: Lidocaine 1% (PF) 30 ML VIAL ONE (06:40)
[2020-08-24] MEDS ORDERED: Heparin 10,000 UNITS/ 10 ML VIAL ONE ×2 (06:40→12:27)
[2020-08-24 07:03] LABS: Bilirubin Negative (Negative); Blood, Urine 2+ (Negative); Clarity Extra Turbid (Clear); Glucose, Urine (Dipstick) Normal (Negative); Ketone, Urine Negative (Negative); Leukocyte 500 Leu/uL (Negative); Nitrite Negative (Negative); Protein, Urine (Dipstick) 300 mg/dL (Neg-Trace); RBC/HPF 21-50 HPF (0-3); Specific Gravity, Urine 1.016 (1.002-1.036); Squamous Epithelial 0-3 HPF (0-3); Urobilinogen Normal mg/dL (Less than 2); WBC/HPF Greater than 50 HPF (0-3)
[2020-08-24] MEDS ORDERED: Midazolam HCl 2 mg/2 ml Vial ONE (07:05)
[2020-08-24] MEDS ORDERED: Fentanyl 100 MCG/2 ML VIAL ONE (07:05)
[2020-08-24 07:13] LABS: Bacteria/HPF Rare-Few HPF (None Seen); Yeast-Budding Rare HPF (None Seen); Yeast-Hyphae 1+ HPF (None Seen)
[2020-08-24] MEDS ORDERED: Protamine Sulfate 50 MG/5 ML VIAL ONE (07:25)
[2020-08-24] MEDS ORDERED: Nitroglycerin 0.4 MG TAB (25 Tab Bottle) SL PRN (07:40)
[2020-08-24] MEDS ORDERED: Sodium Chloride 0.9% 200 ML IV PRN (07:40)
[2020-08-24] MEDS ORDERED: Sodium Chloride 0.9% 1,000 ML IV SCH (07:45)
[2020-08-24] MEDS ORDERED: Aspirin 81 mg Enteric Coated Tablet PO SCH (09:00)
[2020-08-24] MEDS ORDERED: Iopamidol 370 76% 50 ML VIAL FS ONE (09:29)
[2020-08-24] MEDS ORDERED: Iopamidol 370 76% 100 ML VIAL ONE (09:29)
[2020-08-24 20:51] VITALS: BP 143/78; TEMP 99.5
== END 2020-08-24 20:20 | disposition home or self-care (01) | DRG 286 ==
LOC: ERS 14:30 → INTOOBSV 17:14 → OBSVTOIN 17:14 → 2NO 17:14 → OBSVTOIN 08-23 16:31
PROVIDERS: ADMIT Internal Medicine; ATTEND Family Medicine
PROC: 4A023N7 Measurement of Cardiac Sampling and Pressure, Left Heart, Percutaneous Approach (ICD-10-PCS; 2020-08-22)
PROC: B2111ZZ Fluoroscopy of Multiple Coronary Arteries using Low Osmolar Contrast (ICD-10-PCS; 2020-08-22)
PROC: B2151ZZ Fluoroscopy of Left Heart using Low Osmolar Contrast (ICD-10-PCS; 2020-08-22)
PROC: 5A1D70Z Performance of Urinary Filtration, Intermittent, Less than 6 Hours Per Day (ICD-10-PCS; principal; 2020-08-23)
PROC: 0DP6XUZ Removal of Feeding Device from Stomach, External Approach (ICD-10-PCS; 2020-08-23)
DX: I13.2 Hypertensive heart and chronic kidney disease with heart failure and with stage 5 chronic kidney disease, or end stage renal disease (principal); N18.6 End stage renal disease; I50.32 Chronic diastolic (congestive) heart failure; E78.5 Hyperlipidemia, unspecified; I25.10 Atherosclerotic heart disease of native coronary artery without angina pectoris; E11.22 Type 2 diabetes mellitus with diabetic chronic kidney disease; K59.09 Other constipation; E11.42 Type 2 diabetes mellitus with diabetic polyneuropathy; F41.9 Anxiety disorder, unspecified; F32.9 Major depressive disorder, single episode, unspecified; E87.6 Hypokalemia; D64.9 Anemia, unspecified; R13.10 Dysphagia, unspecified; E78.00 Pure hypercholesterolemia, unspecified; E66.9 Obesity, unspecified; K21.9 Gastro-esophageal reflux disease without esophagitis; Z86.16 Personal history of COVID-19; Z98.51 Tubal ligation status; Z82.49 Family history of ischemic heart disease and other diseases of the circulatory system; Z88.1 Allergy status to other antibiotic agents; Z88.8 Allergy status to other drugs, medicaments and biological substances; Z79.52 Long term (current) use of systemic steroids; Z99.2 Dependence on renal dialysis
CPT/HCPCS: 36415; 36416; 71045; 76942; 80048; 80053; 80061; 81001; 82553; 83690; 83735; 83880; 84443; 84484; 85025; 85347; 85610; 87635; 90935; 93005; 93306; 93458; 94760; 96372; 96374; 96375; 99152; G0257; G0378; J1644; J1650; J2001; J2250; J2405; J2550; J2720; J3010; J3480; J7512; Q9967; S0028; U0003; U0005

== ENCOUNTER 2021-06-18 08:58 | Outpatient (CLI) | payer MEDICARE ==
[2021-06-18 18:55] LABS: SARS-CoV-2 PCR by NAA Not Detected (NotDetected)
== END 2021-06-18 08:59 | disposition home or self-care (01) ==
LOC: LABBT 08:58
PROVIDERS: ATTEND Internal Medicine Gastroenterology
DX: Z01.812 Encounter for preprocedural laboratory examination (principal); N18.6 End stage renal disease; K59.09 Other constipation; K92.1 Melena; Z20.822 Contact with and (suspected) exposure to COVID-19
CPT/HCPCS: U0003; U0005

== ENCOUNTER 2021-06-21 09:56 | Day surgery (SDC) | payer MEDICARE ==
[2021-06-17 15:52] VITALS: BMI 23.6
[2021-06-21] MEDS ORDERED: PROPOFOL 200 MG/20 ML VIAL ONE (12:42)
[2021-06-21] MEDS ORDERED: Lidocaine 1% PF 5 ML VIAL ONE (12:42)
== END 2021-06-21 13:58 | disposition home or self-care (01) ==
LOC: SDC 09:56
PROVIDERS: ATTEND Internal Medicine Gastroenterology
PROC: 3E0H8KZ Introduction of Other Diagnostic Substance into Lower GI, Via Natural or Artificial Opening Endoscopic (ICD-10-PCS; principal; 2021-06-21)
DX: K63.89 Other specified diseases of intestine (principal); K64.4 Residual hemorrhoidal skin tags; K92.1 Melena; K59.09 Other constipation; I13.2 Hypertensive heart and chronic kidney disease with heart failure and with stage 5 chronic kidney disease, or end stage renal disease; N18.6 End stage renal disease; I50.9 Heart failure, unspecified; I25.10 Atherosclerotic heart disease of native coronary artery without angina pectoris; Z86.16 Personal history of COVID-19; Z86.73 Personal history of transient ischemic attack (TIA), and cerebral infarction without residual deficits; Z79.82 Long term (current) use of aspirin; Z79.899 Other long term (current) drug therapy; Z88.1 Allergy status to other antibiotic agents; Z88.5 Allergy status to narcotic agent; Z88.8 Allergy status to other drugs, medicaments and biological substances; Z99.2 Dependence on renal dialysis
CPT/HCPCS: J2704

== ENCOUNTER 2021-08-02 07:58 | Day surgery (SDC) | payer MEDICARE ==
[2021-08-01 09:49] VITALS: BMI 23.6
[2021-08-02 08:22] LABS: #Basophils 0.1 thou/uL (0.0-0.2); #Eosinphils 0.3 thou/uL (0.0-0.7); #Lymphocytes 1.9 thou/uL (1.20-3.40); #Monocytes 0.3 thou/uL (0.11-0.59); %Basophils 2.1 % (0.0-1.0); %Eosinophils 4.8 % (0.0-10.0); %Lymphocytes 33.7 % (21.0-51.0); %Monocytes 5.9 % (0.0-10.0); %Neutrophils 53.5 % (42.0-75.0); Hemoglobin 12.3 g/dL (12.0-16.0); Mean Corpuscular HGB CONC 31.3 g/dL (32.0-36.0); Mean Corpuscular Hemoglobin 29.7 pg (27.0-31.0); Mean Platelet Volume 6.9 fL (7.4-10.4); Platelet Count 298 thou/uL (130-400); RBC Distribution Width 11.8 % (11.5-14.5); Red Blood Cell (RBC) Count 4.13 mill/uL (4.20-5.40); White Blood Cell (WBC) Count 5.5 thou/uL (4.8-10.8)
[2021-08-02 08:31] LABS: PTT 44.5 sec (22.9-36.1); Prothrombin Time 13.1 sec (12.0-14.7)
[2021-08-02 09:41] VITALS: BP 198/91; TEMP 97.9
== END 2021-08-02 09:38 | disposition home or self-care (01) ==
LOC: CT 07:58
PROVIDERS: ATTEND Internal Medicine Hematology & Oncology
DX: R93.5 Abnormal findings on diagnostic imaging of other abdominal regions, including retroperitoneum (principal); Z53.8 Procedure and treatment not carried out for other reasons; Z88.1 Allergy status to other antibiotic agents; Z88.5 Allergy status to narcotic agent; Z88.6 Allergy status to analgesic agent; Z88.8 Allergy status to other drugs, medicaments and biological substances
CPT/HCPCS: 85025; 85610; 85730

== ENCOUNTER 2021-09-05 08:40 | Outpatient (CLI) | payer MEDICARE | END 2021-09-05 08:41 | disposition home or self-care (01) | LOC: CT 08:40 | PROVIDERS: ATTEND Internal Medicine Hematology & Oncology | DX: C18.5 Malignant neoplasm of splenic flexure (principal); C78.7 Secondary malignant neoplasm of liver and intrahepatic bile duct | CPT/HCPCS: 74177 ==

== ENCOUNTER 2021-09-17 09:54 | Day surgery (SDC) | payer MEDICARE ==
[~2021-09-17 09:54] MED LIST: BEVACIZUMAB BVZR IV SCH; Dexamethasone 10 MG/ML VIAL SLOW IVP SCH; Fluorouracil 700 MG in Dextrose 5% in Water 50 ML IVPB SCH; Leucovorin Calcium 350 MG in Sodium Chloride 0.9% 50 ML IVPB SCH; PALONOSETRON HCL 0.05 MG/ML 5 ML VIAL IVP SCH; SODIUM CHLORIDE 0.9% IV SCH
[2021-09-17] MEDS ORDERED: PALONOSETRON HCL 0.05 MG/ML 5 ML VIAL ONE (10:32)
[2021-09-17 11:29] VITALS: TEMP 98.7
[2021-09-17 12:50] VITALS: BP 177/79
== END 2021-09-17 16:17 | disposition home or self-care (01) ==
LOC: ONC/OP 09:54
PROVIDERS: ATTEND Internal Medicine Hematology & Oncology
DX: Z51.11 Encounter for antineoplastic chemotherapy (principal); C18.5 Malignant neoplasm of splenic flexure; Z88.1 Allergy status to other antibiotic agents; Z88.5 Allergy status to narcotic agent; Z88.6 Allergy status to analgesic agent; Z88.8 Allergy status to other drugs, medicaments and biological substances
CPT/HCPCS: 80053; 82248; 82378; 83615; 84100; 84550; 96367; 96375; 96413; 96415; 96416; 96417; J0640; J1100; J2469; J3490; J7070; J9190; J9263; Q5118

== ENCOUNTER 2021-10-01 12:00 | Day surgery (SDC) | payer MEDICARE ==
[~2021-10-01 12:00] MED LIST changes: -Dexamethasone 10 MG/ML VIAL SLOW IVP SCH
[2021-10-01 12:35] VITALS: BP 233/104
[2021-10-01] MEDS ORDERED: PALONOSETRON HCL 0.05 MG/ML 5 ML VIAL ONE (12:36)
== END 2021-10-01 16:51 | disposition home or self-care (01) ==
LOC: ONC/OP 12:00
PROVIDERS: ATTEND Internal Medicine Hematology & Oncology
DX: Z51.11 Encounter for antineoplastic chemotherapy (principal); C18.5 Malignant neoplasm of splenic flexure; Z88.1 Allergy status to other antibiotic agents; Z88.5 Allergy status to narcotic agent; Z88.6 Allergy status to analgesic agent; Z88.8 Allergy status to other drugs, medicaments and biological substances
CPT/HCPCS: 96367; 96375; 96413; 96415; 96416; 96417; J0640; J1100; J2469; J3490; J7070; J9190; J9263; Q5118

== ENCOUNTER 2021-10-15 08:57 | Day surgery (SDC) | payer MEDICARE ==
[2021-10-15] MEDS ORDERED: Dexamethasone 10 MG/ML VIAL SLOW IVP SCH (09:15)
[2021-10-15] MEDS ORDERED: PALONOSETRON HCL 0.05 MG/ML 5 ML VIAL IVP SCH (09:15)
[2021-10-15] MEDS ORDERED: PALONOSETRON HCL 0.05 MG/ML 5 ML VIAL ONE (09:48)
[2021-10-15] MEDS ORDERED: Dexamethasone 10 MG/ML VIAL ONE (09:48)
[2021-10-15 09:52] VITALS: BP 193/84; TEMP 98.5
[2021-10-15] MEDS ORDERED: Fluorouracil 700 MG in Dextrose 5% in Water 50 ML IVPB SCH (10:00)
[2021-10-15] MEDS ORDERED: BEVACIZUMAB BVZR IV SCH (10:00)
[2021-10-15] MEDS ORDERED: Leucovorin Calcium 350 MG in Sodium Chloride 0.9% 50 ML IVPB SCH (10:00)
[2021-10-15] MEDS ORDERED: SODIUM CHLORIDE 0.9% IV SCH (10:00)
== END 2021-10-15 15:48 | disposition home or self-care (01) ==
LOC: ONC/OP 08:57
PROVIDERS: ATTEND Internal Medicine Hematology & Oncology
DX: Z51.11 Encounter for antineoplastic chemotherapy (principal); C18.5 Malignant neoplasm of splenic flexure; Z88.1 Allergy status to other antibiotic agents; Z88.5 Allergy status to narcotic agent; Z88.6 Allergy status to analgesic agent; Z88.8 Allergy status to other drugs, medicaments and biological substances
CPT/HCPCS: 80053; 82248; 83615; 84100; 84550; 96367; 96375; 96413; 96415; 96416; 96417; J0640; J1100; J2469; J3490; J7070; J9190; J9263; Q5118

== ENCOUNTER 2021-10-29 11:03 | Day surgery (SDC) | payer MEDICARE ==
[2021-10-29] MEDS ORDERED: PALONOSETRON HCL 0.05 MG/ML 5 ML VIAL IVP SCH (11:30)
[2021-10-29] MEDS ORDERED: Leucovorin Calcium 350 MG in Sodium Chloride 0.9% 50 ML IVPB SCH (11:30)
[2021-10-29] MEDS ORDERED: SODIUM CHLORIDE 0.9% IV SCH (11:45)
[2021-10-29] MEDS ORDERED: Fluorouracil 700 MG in Dextrose 5% in Water 50 ML IVPB SCH (11:45)
[2021-10-29] MEDS ORDERED: BEVACIZUMAB BVZR IV SCH (11:45)
[2021-10-29 11:48] VITALS: BP 192/88; TEMP 99.1
[2021-10-29] MEDS ORDERED: PALONOSETRON HCL 0.05 MG/ML 5 ML VIAL ONE (13:46)
== END 2021-10-29 16:41 | disposition home or self-care (01) ==
LOC: ONC/OP 11:03
PROVIDERS: ATTEND Internal Medicine Hematology & Oncology
DX: Z51.11 Encounter for antineoplastic chemotherapy (principal); C18.5 Malignant neoplasm of splenic flexure; Z88.1 Allergy status to other antibiotic agents; Z88.5 Allergy status to narcotic agent; Z88.8 Allergy status to other drugs, medicaments and biological substances
CPT/HCPCS: 96367; 96375; 96413; 96415; 96416; 96417; J0640; J1100; J2469; J3490; J7070; J9190; J9263; Q5118

== ENCOUNTER 2021-11-12 09:37 | Day surgery (SDC) | payer MEDICARE ==
[~2021-11-12 09:37] MED LIST changes: -BEVACIZUMAB BVZR IV SCH; +BEVACIZUMAB BVZR IVPB SCH; +Dexamethasone 10 MG/ML VIAL SLOW IVP SCH; -Fluorouracil 700 MG in Dextrose 5% in Water 50 ML IVPB SCH; -Leucovorin Calcium 350 MG in Sodium Chloride 0.9% 50 ML IVPB SCH; -SODIUM CHLORIDE 0.9% IV SCH; +SODIUM CHLORIDE 0.9% IVPB SCH
[2021-11-12] MEDS ORDERED: Fluorouracil 700 MG in Dextrose 5% in Water 50 ML IVPB SCH (10:00)
[2021-11-12] MEDS ORDERED: Leucovorin Calcium 350 MG in Sodium Chloride 0.9% 50 ML IVPB SCH (10:00)
[2021-11-12 10:07] VITALS: BP 185/91; TEMP 98.7
[2021-11-12] MEDS ORDERED: PALONOSETRON HCL 0.05 MG/ML 5 ML VIAL ONE (10:45)
== END 2021-11-12 15:11 | disposition home or self-care (01) ==
LOC: ONC/OP 09:37
PROVIDERS: ATTEND Internal Medicine Hematology & Oncology
DX: Z51.11 Encounter for antineoplastic chemotherapy (principal); C18.5 Malignant neoplasm of splenic flexure; Z88.1 Allergy status to other antibiotic agents; Z88.5 Allergy status to narcotic agent; Z88.6 Allergy status to analgesic agent; Z88.8 Allergy status to other drugs, medicaments and biological substances
CPT/HCPCS: 96367; 96375; 96413; 96415; 96416; 96417; J0640; J1100; J2469; J3490; J7070; J9035; J9190; J9263; Q5118

== ENCOUNTER 2021-11-26 09:47 | Day surgery (SDC) | payer MEDICARE ==
[~2021-11-26 09:47] MED LIST changes: -Dexamethasone 10 MG/ML VIAL SLOW IVP SCH; +Fluorouracil 700 MG in Dextrose 5% in Water 50 ML IVPB SCH; +Leucovorin Calcium 350 MG in Sodium Chloride 0.9% 50 ML IVPB SCH
[2021-11-26] MEDS ORDERED: PALONOSETRON HCL 0.05 MG/ML 5 ML VIAL ONE (10:24)
[2021-11-26 11:07] VITALS: BP 199/87; TEMP 98.6
== END 2021-11-26 14:53 | disposition home or self-care (01) ==
LOC: ONC/OP 09:47
PROVIDERS: ATTEND Internal Medicine Hematology & Oncology
DX: Z51.11 Encounter for antineoplastic chemotherapy (principal); C18.5 Malignant neoplasm of splenic flexure; Z88.1 Allergy status to other antibiotic agents; Z88.5 Allergy status to narcotic agent; Z88.8 Allergy status to other drugs, medicaments and biological substances
CPT/HCPCS: 96367; 96375; 96413; 96415; 96416; 96417; J0640; J1100; J2469; J3490; J7070; J9190; J9263; Q5118

== ENCOUNTER 2021-12-12 10:59 | Outpatient (CLI) | payer MEDICARE ==
[2021-12-12] MEDS ORDERED: GASTROGRAFIN 30 ML BOT ONE (11:24)
[2021-12-12] MEDS ORDERED: Iopamidol 370 76% 100 ML VIAL ONE (11:24)
== END 2021-12-12 11:00 | disposition home or self-care (01) ==
LOC: CT 10:59
PROVIDERS: ATTEND Internal Medicine Hematology & Oncology
DX: C18.9 Malignant neoplasm of colon, unspecified (principal); J90 Pleural effusion, not elsewhere classified; J98.4 Other disorders of lung; C78.7 Secondary malignant neoplasm of liver and intrahepatic bile duct; R16.1 Splenomegaly, not elsewhere classified
CPT/HCPCS: 71260; 74177; Q9963; Q9967

== ENCOUNTER → 2021-12-24 | Day surgery (SDC) | payer MEDICARE ==
[~2021-12-24] MED LIST changes: +PALONOSETRON HCL 0.05 MG/ML 5 ML VIAL ONE
[2021-12-24 10:42] VITALS: BP 221/98; TEMP 98.3
== END | disposition home or self-care (01) ==
LOC: ONC/OP 10:26
PROVIDERS: ATTEND Internal Medicine Hematology & Oncology
DX: Z51.12 Encounter for antineoplastic immunotherapy (principal); C18.5 Malignant neoplasm of splenic flexure; Z88.1 Allergy status to other antibiotic agents; Z88.5 Allergy status to narcotic agent; Z88.6 Allergy status to analgesic agent; Z88.8 Allergy status to other drugs, medicaments and biological substances
CPT/HCPCS: 96367; 96375; 96413; 96415; 96416; 96417; J0640; J1100; J2469; J3490; J7070; J9190; J9263; Q5118

== ENCOUNTER 2021-12-31 11:02 | Day surgery (SDC) | payer MEDICARE ==
[2021-12-31 12:00] VITALS: BP 230/105; TEMP 98.3
[2021-12-31 12:39] LABS: ALT (SGPT) 37 U/L (8-55); AST (SGOT) 58 U/L (5-34); Albumin 3.3 g/dL (3.4-4.8); Alkaline Phosphatase 95 U/L (40-110); Anion Gap 16 mmol/L (10-20); BUN (Urea Nitrogen) 34 mg/dL (9.8-20.1); Bilirubin, Direct 0.4 mg/dL (0.1-0.3); Bilirubin, Total 1.1 mg/dL (0.2-1.2); Calc. Creatinine Clearance 0 mL/min (70-130); Calcium 8.5 mg/dL (7.8-10.44); Carbon Dioxide 29 mmol/L (23-31); Chloride 101 mmol/L (98-107); Estimated GFR 7; Globulin 2.6 g/dL (2.4-3.5); Glucose 73 mg/dL (80-115); Potassium 3.6 mmol/L (3.5-5.1); Protein, Total 5.9 g/dL (5.8-8.1); Sodium 142 mmol/L (136-145)
[2022-01-01 10:44] LABS: Cardiac Risk 2.6 (Less than 4.5); Cholesterol 294 mg/dl (< 200 Desired); HDL Cholesterol 115 mg/dL (>60 Neg Risk); LDL Cholesterol, Calculated 159 mg/dL; Triglycerides 101 mg/dL (Less than 150)
== END 2021-12-31 12:02 | disposition home or self-care (01) ==
LOC: ONC/OP 11:02
PROVIDERS: ATTEND Internal Medicine Cardiovascular Disease
DX: E78.00 Pure hypercholesterolemia, unspecified (principal); I10 Essential (primary) hypertension; Z88.1 Allergy status to other antibiotic agents; Z88.5 Allergy status to narcotic agent; Z88.6 Allergy status to analgesic agent; Z88.8 Allergy status to other drugs, medicaments and biological substances
CPT/HCPCS: 36591; 80053; 80061; 80076; J1642

== ENCOUNTER 2022-01-21 10:14 | Day surgery (SDC) | payer MEDICARE ==
[~2022-01-21 10:14] MED LIST changes: -BEVACIZUMAB BVZR IVPB SCH; +Dexamethasone 10 MG/ML VIAL SLOW IVP SCH; -Fluorouracil 700 MG in Dextrose 5% in Water 50 ML IVPB SCH; -PALONOSETRON HCL 0.05 MG/ML 5 ML VIAL ONE; -SODIUM CHLORIDE 0.9% IVPB SCH
[2022-01-21] MEDS ORDERED: Fluorouracil 700 MG in Dextrose 5% in Water 50 ML IVPB SCH (11:00)
[2022-01-21] MEDS ORDERED: BEVACIZUMAB BVZR IV SCH (11:00)
[2022-01-21] MEDS ORDERED: SODIUM CHLORIDE 0.9% IV SCH (11:00)
[2022-01-21 11:11] VITALS: TEMP 98.5
[2022-01-21] MEDS ORDERED: PALONOSETRON HCL 0.05 MG/ML 5 ML VIAL ONE ×2 (11:36→12:36)
[2022-01-21] MEDS ORDERED: Dexamethasone 10 MG/ML VIAL ONE (12:36)
[2022-01-21] MEDS ORDERED: cloNIDine 0.1 MG TAB ONE (14:04)
[2022-01-21 14:09] VITALS: BP 210/102
[2022-01-21] MEDS ORDERED: cloNIDine 0.1 MG TAB PO SCH (14:30)
== END 2022-01-21 17:56 | disposition home or self-care (01) ==
LOC: ONC/OP 10:14
PROVIDERS: ATTEND Internal Medicine Hematology & Oncology
DX: Z51.11 Encounter for antineoplastic chemotherapy (principal); C18.5 Malignant neoplasm of splenic flexure; Z88.1 Allergy status to other antibiotic agents; Z88.5 Allergy status to narcotic agent; Z88.8 Allergy status to other drugs, medicaments and biological substances
CPT/HCPCS: 80053; 82248; 82378; 83615; 84100; 84550; 96367; 96375; 96413; 96415; 96416; 96417; J0640; J1100; J2469; J3490; J7070; J9190; J9263; Q5118

== ENCOUNTER → 2022-01-25 | Day surgery (SDC) | payer MEDICARE ==
[2022-01-25 15:38] VITALS: BP 200/94; TEMP 99.1
== END ==
LOC: ONC/OP 15:01
PROVIDERS: ATTEND Internal Medicine Hematology & Oncology
DX: Z76.89 Persons encountering health services in other specified circumstances (principal); Z88.1 Allergy status to other antibiotic agents; Z88.5 Allergy status to narcotic agent; Z88.6 Allergy status to analgesic agent; Z88.8 Allergy status to other drugs, medicaments and biological substances
CPT/HCPCS: 96372

== ENCOUNTER 2022-02-04 09:40 | Day surgery (SDC) | payer MEDICARE ==
[~2022-02-04 09:40] MED LIST changes: +BEVACIZUMAB BVZR IV SCH; +Fluorouracil 700 MG in Dextrose 5% in Water 50 ML IVPB SCH; +SODIUM CHLORIDE 0.9% IV SCH
[2022-02-04] MEDS ORDERED: PALONOSETRON HCL 0.05 MG/ML 5 ML VIAL ONE (10:33)
[2022-02-04 13:51] VITALS: TEMP 98.1
[2022-02-04] MEDS ORDERED: diphenhydrAMINE 25 MG CAP ONE (14:17)
[2022-02-04] MEDS ORDERED: diphenhydrAMINE 25 MG CAP PO SCH (15:00)
[2022-02-04 15:57] VITALS: BP 192/84
== END 2022-02-04 15:47 | disposition home or self-care (01) ==
LOC: ONC/OP 09:40
PROVIDERS: ATTEND Internal Medicine Hematology & Oncology
DX: Z51.11 Encounter for antineoplastic chemotherapy (principal); C18.5 Malignant neoplasm of splenic flexure; Z88.1 Allergy status to other antibiotic agents; Z88.5 Allergy status to narcotic agent; Z88.8 Allergy status to other drugs, medicaments and biological substances
CPT/HCPCS: 96367; 96375; 96413; 96415; 96416; 96417; J0640; J1100; J2469; J3490; J7070; J9190; J9263; Q5118

== ENCOUNTER 2022-03-04 09:27 | Day surgery (SDC) | payer MEDICARE ==
[~2022-03-04 09:27] MED LIST changes: +DEXTROSE 5% IVPB SCH; -Dexamethasone 10 MG/ML VIAL SLOW IVP SCH; +FLUOROURACIL IVPB SCH; +LEUCOVORIN CALCIUM IVPB SCH; +OXALIPLATIN IVPB SCH; +PALONOSETRON HCL 0.05 MG/ML 5 ML VIAL ONE; +SODIUM CHLORIDE 0.9% IVPB SCH; +WATER IVPB SCH
[2022-03-04 12:01] VITALS: TEMP 97.9
[2022-03-04 12:02] VITALS: BP 177/84
== END 2022-03-04 15:03 | disposition home or self-care (01) ==
LOC: ONC/OP 09:27
PROVIDERS: ATTEND Internal Medicine Hematology & Oncology
DX: Z51.11 Encounter for antineoplastic chemotherapy (principal); C18.5 Malignant neoplasm of splenic flexure; Z88.1 Allergy status to other antibiotic agents; Z88.5 Allergy status to narcotic agent; Z88.8 Allergy status to other drugs, medicaments and biological substances
CPT/HCPCS: 80053; 82248; 82378; 83615; 84100; 84550; 96367; 96375; 96413; 96415; 96416; 96417; J0640; J1100; J2469; J3490; J7070; J9190; J9263; Q5118

== ENCOUNTER → 2022-03-18 | Day surgery (SDC) | payer MEDICARE ==
[~2022-03-18] MED LIST changes: +Dexamethasone 10 MG in Sodium Chloride 0.9% 50 ML IVPB SCH; -FLUOROURACIL IVPB SCH; -LEUCOVORIN CALCIUM IVPB SCH; -SODIUM CHLORIDE 0.9% IVPB SCH
[2022-03-19 02:55] VITALS: BP 202/95; TEMP 98
== END | disposition home or self-care (01) ==
LOC: ONC/OP 10:06
PROVIDERS: ATTEND Internal Medicine Hematology & Oncology
DX: Z51.11 Encounter for antineoplastic chemotherapy (principal); C18.5 Malignant neoplasm of splenic flexure; Z88.1 Allergy status to other antibiotic agents; Z88.5 Allergy status to narcotic agent; Z88.8 Allergy status to other drugs, medicaments and biological substances
CPT/HCPCS: 80053; 82248; 82378; 83615; 84100; 84550; 96367; 96375; 96413; 96415; 96416; 96417; J0640; J1100; J2469; J3490; J7070; J9190; J9263; Q5118

== ENCOUNTER 2022-04-02 08:51 | Outpatient (CLI) | payer MEDICARE | END 2022-04-02 08:52 | disposition home or self-care (01) | LOC: CT 08:51 | PROVIDERS: ATTEND Internal Medicine Hematology & Oncology | DX: C18.9 Malignant neoplasm of colon, unspecified (principal); C78.7 Secondary malignant neoplasm of liver and intrahepatic bile duct; J90 Pleural effusion, not elsewhere classified; R18.8 Other ascites | CPT/HCPCS: 71260; 74177 ==

== ENCOUNTER 2022-04-15 11:10 | Day surgery (SDC) | payer MEDICARE ==
[~2022-04-15 11:10] MED LIST changes: -BEVACIZUMAB BVZR IV SCH; +BEVACIZUMAB BVZR IVPB SCH; -DEXTROSE 5% IVPB SCH; -Fluorouracil 700 MG in Dextrose 5% in Water 50 ML IVPB SCH; +Fluorouracil 700 MG in Sodium Chloride 0.9% 50 ML IVPB SCH; -OXALIPLATIN IVPB SCH; -PALONOSETRON HCL 0.05 MG/ML 5 ML VIAL ONE; -SODIUM CHLORIDE 0.9% IV SCH; +SODIUM CHLORIDE 0.9% IVPB SCH; -WATER IVPB SCH
[2022-04-15] MEDS ORDERED: PALONOSETRON HCL 0.05 MG/ML 5 ML VIAL ONE (11:42)
[2022-04-15] MEDS ORDERED: SODIUM CHLORIDE 0.9% IVPB SCH ×2 (14:00→14:30)
[2022-04-15] MEDS ORDERED: BEVACIZUMAB BVZR IVPB SCH ×2 (14:00→14:30)
[2022-04-15 15:43] VITALS: BP 189/81; TEMP 98.6
== END 2022-04-15 16:36 | disposition home or self-care (01) ==
LOC: ONC/OP 11:10
PROVIDERS: ATTEND Internal Medicine Hematology & Oncology
DX: Z51.11 Encounter for antineoplastic chemotherapy (principal); C18.5 Malignant neoplasm of splenic flexure; Z88.1 Allergy status to other antibiotic agents; Z88.5 Allergy status to narcotic agent; Z88.8 Allergy status to other drugs, medicaments and biological substances
CPT/HCPCS: 80053; 82248; 82378; 83615; 84100; 84550; 96367; 96375; 96413; 96416; 96417; J0640; J1100; J2469; J3490; J9190; Q5118

== ENCOUNTER 2022-05-29 11:11 | Emergency (ER) | payer MEDICARE ==
[~2022-05-29 11:11] MED LIST changes: -BEVACIZUMAB BVZR IVPB SCH; -Dexamethasone 10 MG in Sodium Chloride 0.9% 50 ML IVPB SCH; -Fluorouracil 700 MG in Sodium Chloride 0.9% 50 ML IVPB SCH; +Heparin 10,000 UNITS/ 10 ML VIAL ONE; -Leucovorin Calcium 350 MG in Sodium Chloride 0.9% 50 ML IVPB SCH; -PALONOSETRON HCL 0.05 MG/ML 5 ML VIAL IVP SCH; -SODIUM CHLORIDE 0.9% IVPB SCH
[2022-05-29 13:24] LABS: #Basophils 0.1 thou/uL (0.0-0.2); #Eosinphils 0.1 thou/uL (0.0-0.7); #Lymphocytes 1.5 thou/uL (1.20-3.40); #Monocytes 0.5 thou/uL (0.11-0.59); #Neutrophils 3.9 thou/uL (1.40-6.50); %Basophils 0.9 % (0.0-1.0); %Eosinophils 1.5 % (0.0-10.0); %Lymphocytes 25.1 % (21.0-51.0); %Monocytes 7.8 % (0.0-10.0); %Neutrophils 64.7 % (42.0-75.0); Hemoglobin 11.5 g/dL (12.0-16.0); Mean Corpuscular HGB CONC 32.4 g/dL (32.0-36.0); Mean Corpuscular Hemoglobin 30.6 pg (27.0-31.0); Mean Corpuscular Volume 94.7 fl (78.0-98.0); Mean Platelet Volume 9.7 fL (7.4-10.4); Platelet Count 161 10x3/uL (130-400); RBC Distribution Width 14.3 % (11.5-14.5); Red Blood Cell (RBC) Count 3.74 mill/uL (4.20-5.40)
[2022-05-29 13:57] LABS: ALT (SGPT) 11 U/L (8-55); AST (SGOT) 40 U/L (5-34); Albumin 3.3 g/dL (3.4-4.8); Alkaline Phosphatase 89 U/L (40-110); Anion Gap 19 mmol/L (10-20); BUN (Urea Nitrogen) 55 mg/dL (9.8-20.1); Bilirubin, Total 1.4 mg/dL (0.2-1.2); Calc. Creatinine Clearance 0 mL/min (70-130); Calcium 8.7 mg/dL (7.8-10.44); Carbon Dioxide 22 mmol/L (23-31); Chloride 105 mmol/L (98-107); Estimated GFR 3; Globulin 3.4 g/dL (2.4-3.5); Glucose 63 mg/dL (83-110); Potassium 5.5 mmol/L (3.5-5.1); Protein, Total 6.7 g/dL (5.8-8.1); Sodium 140 mmol/L (136-145)
[2022-05-29] MEDS ORDERED: Nitroglycerin 2% Ointment 1 INCH/1 GM Packet ONE (14:58)
[2022-05-29] MEDS ORDERED: traMADol HCl 50 MG TAB ONE (16:56)
[2022-05-29 17:39] LABS: HBSAB Concentration Less than 8.00 mIU/mL; HBSAg Index 0.27 S/CO (0-0.99); Hep B Surf AB Non-Reactive (NonReactive); Hep B Surf Ag Non-Reactive S/CO (NonReactive)
== END 2022-05-29 22:15 | disposition home or self-care (01) ==
LOC: ERS 11:11
DX: R11.2 Nausea with vomiting, unspecified (principal); E11.22 Type 2 diabetes mellitus with diabetic chronic kidney disease; E11.42 Type 2 diabetes mellitus with diabetic polyneuropathy; I13.2 Hypertensive heart and chronic kidney disease with heart failure and with stage 5 chronic kidney disease, or end stage renal disease; I50.9 Heart failure, unspecified; N18.6 End stage renal disease; I25.10 Atherosclerotic heart disease of native coronary artery without angina pectoris; E78.5 Hyperlipidemia, unspecified; E78.00 Pure hypercholesterolemia, unspecified; Z99.2 Dependence on renal dialysis
CPT/HCPCS: 36415; 80053; 85025; 86706; 87340; 93005; 94760; J1644

== ENCOUNTER 2022-06-06 13:35 | Emergency (ER) | payer MEDICARE ==
[2022-06-06 14:55] LABS: #Eosinphils 0.1 thou/uL (0.0-0.7); #Lymphocytes 1.7 thou/uL (1.20-3.40); #Monocytes 0.4 thou/uL (0.11-0.59); #Neutrophils 2.4 thou/uL (1.40-6.50); %Basophils 0.8 % (0.0-1.0); %Eosinophils 3.1 % (0.0-10.0); %Lymphocytes 36.6 % (21.0-51.0); %Monocytes 7.8 % (0.0-10.0); %Neutrophils 51.8 % (42.0-75.0); Hemoglobin 11.6 g/dL (12.0-16.0); Mean Corpuscular HGB CONC 33.4 g/dL (32.0-36.0); Mean Corpuscular Hemoglobin 32.5 pg (27.0-31.0); Mean Corpuscular Volume 97.3 fl (78.0-98.0); Mean Platelet Volume 8.4 fL (7.4-10.4); Platelet Count 248 10x3/uL (130-400); RBC Distribution Width 13.9 % (11.5-14.5); Red Blood Cell (RBC) Count 3.58 mill/uL (4.20-5.40); White Blood Cell (WBC) Count 4.7 10x3/uL (4.8-10.8)
[2022-06-06 15:14] LABS: ALT (SGPT) 10 U/L (8-55); AST (SGOT) 22 U/L (5-34); Albumin 3.4 g/dL (3.4-4.8); Alkaline Phosphatase 85 U/L (40-110); Anion Gap 18 mmol/L (10-20); BUN (Urea Nitrogen) 54 mg/dL (9.8-20.1); Bilirubin, Total 1.2 mg/dL (0.2-1.2); Calc. Creatinine Clearance 0 mL/min (70-130); Calcium 8.5 mg/dL (7.8-10.44); Carbon Dioxide 25 mmol/L (23-31); Chloride 104 mmol/L (98-107); Estimated GFR 3; Glucose 87 mg/dL (83-110); Potassium 3.7 mmol/L (3.5-5.1); Protein, Total 6.4 g/dL (5.8-8.1); Sodium 143 mmol/L (136-145)
[2022-06-06 15:31] LABS: CKMB 1.9 ng/mL (0-6.6)
[2022-06-06 18:44] LABS: HBSAB Concentration Less than 8.00 mIU/mL; HBSAg Index 0.28 S/CO (0-0.99); Hep B Core Total Ab Non-Reactive (NonReactive); Hep B Core Total Index 0.07 S/CO (0-0.79); Hep B Surf AB Non-Reactive (NonReactive); Hep B Surf Ag Non-Reactive S/CO (NonReactive); Hep C IgG Ab Non-Reactive (NonReactive); Hep C Index 0.09 S/CO (0-0.79)
== END 2022-06-06 22:21 | disposition home or self-care (01) ==
LOC: ERS 13:35
DX: E87.70 Fluid overload, unspecified (principal); E11.22 Type 2 diabetes mellitus with diabetic chronic kidney disease; I13.2 Hypertensive heart and chronic kidney disease with heart failure and with stage 5 chronic kidney disease, or end stage renal disease; N18.5 Chronic kidney disease, stage 5; Z99.2 Dependence on renal dialysis; Z79.899 Other long term (current) drug therapy; E78.00 Pure hypercholesterolemia, unspecified; I25.10 Atherosclerotic heart disease of native coronary artery without angina pectoris
CPT/HCPCS: 36415; 71045; 80053; 82550; 82553; 83880; 84484; 85025; 86704; 93005

== ENCOUNTER 2022-07-02 12:20 | Inpatient (IN) | payer MEDICARE ==
[~2022-07-02 12:20] MED LIST changes: -Heparin 10,000 UNITS/ 10 ML VIAL ONE; +Iopamidol-370 76% 500 ML 1 ML ONE
[2022-07-02] MEDS ORDERED: Ondansetron PF 4 MG/2 ML Vial ONE (14:39)
[2022-07-02 14:43] LABS: #Eosinphils 0.1 thou/uL (0.0-0.7); #Lymphocytes 1.5 thou/uL (1.20-3.40); #Monocytes 0.5 thou/uL (0.11-0.59); #Neutrophils 3.6 thou/uL (1.40-6.50); %Basophils 0.8 % (0.0-1.0); %Eosinophils 1.9 % (0.0-10.0); %Monocytes 8.9 % (0.0-10.0); %Neutrophils 62.4 % (42.0-75.0); Hemoglobin 11.3 g/dL (12.0-16.0); Mean Corpuscular HGB CONC 32.8 g/dL (32.0-36.0); Mean Corpuscular Hemoglobin 30.7 pg (27.0-31.0); Mean Corpuscular Volume 93.7 fl (78.0-98.0); Mean Platelet Volume 8.9 fL (7.4-10.4); Platelet Count 179 10x3/uL (130-400); RBC Distribution Width 13.3 % (11.5-14.5); Red Blood Cell (RBC) Count 3.68 mill/uL (4.20-5.40); White Blood Cell (WBC) Count 5.7 10x3/uL (4.8-10.8)
[2022-07-02 14:56] LABS: ALT (SGPT) 16 U/L (8-55); AST (SGOT) 33 U/L (5-34); Albumin 3.1 g/dL (3.4-4.8); Alkaline Phosphatase 97 U/L (40-110); Anion Gap 20 mmol/L (10-20); BUN (Urea Nitrogen) 66 mg/dL (9.8-20.1); Bilirubin, Total 1.1 mg/dL (0.2-1.2); CK (CPK) 133 U/L (29-168); Calc. Creatinine Clearance 0 mL/min (70-130); Calcium 8.3 mg/dL (7.8-10.44); Carbon Dioxide 22 mmol/L (23-31); Chloride 104 mmol/L (98-107); Estimated GFR 4; Glucose 77 mg/dL (83-110); Lipase 13 U/L (8-78); Potassium 3.4 mmol/L (3.5-5.1); Protein, Total 6.1 g/dL (5.8-8.1); Sodium 143 mmol/L (136-145)
[2022-07-02 15:28] LABS: CKMB 1.9 ng/mL (0-6.6)
[2022-07-02] MEDS ORDERED: hydrALAZINE 20 MG/ML VIAL ONE (16:55)
[2022-07-02] MEDS ORDERED: Nitroglycerin 2% Ointment 1 INCH/1 GM Packet ONE (16:55)
[2022-07-02] MEDS ORDERED: hydrALAZINE 25 MG TAB PO PRN (17:42)
[2022-07-02] MEDS ORDERED: traMADol HCl 50 MG TAB PO PRN (17:42)
[2022-07-02] MEDS ORDERED: hydrALAZINE 20 MG/ML VIAL SLOW IVP PRN (17:44)
[2022-07-02] MEDS ORDERED: Aspirin 325 MG TAB ONE (18:11)
[2022-07-02 19:43] VITALS: BMI 24.2
[2022-07-02] MEDS ORDERED: cloNIDine 0.1 MG TAB PO SCH (21:00)
[2022-07-02] MEDS: Heparin 5,000 UNITS/ML VIAL SC SCH (21:53)
[2022-07-02] MEDS: cloNIDine 0.2 MG TAB PO SCH (21:54)
[2022-07-02] MEDS: Zolpidem Tartrate 5 MG TAB PO SCH (21:55)
[2022-07-02] MEDS: Amlodipine 5 MG TAB PO SCH (21:56)
[2022-07-03 06:13] LABS: #Eosinphils 0.2 thou/uL (0.0-0.7); #Lymphocytes 1.6 thou/uL (1.20-3.40); #Monocytes 0.4 thou/uL (0.11-0.59); #Neutrophils 2.1 thou/uL (1.40-6.50); %Basophils 0.9 % (0.0-1.0); %Eosinophils 3.9 % (0.0-10.0); %Lymphocytes 36.3 % (21.0-51.0); %Monocytes 10.3 % (0.0-10.0); %Neutrophils 48.7 % (42.0-75.0); Hemoglobin 9.2 g/dL (12.0-16.0); Mean Corpuscular HGB CONC 32.5 g/dL (32.0-36.0); Mean Corpuscular Volume 95.3 fl (78.0-98.0); Mean Platelet Volume 8.7 fL (7.4-10.4); Platelet Count 130 10x3/uL (130-400); RBC Distribution Width 13.4 % (11.5-14.5); Red Blood Cell (RBC) Count 2.96 mill/uL (4.20-5.40); White Blood Cell (WBC) Count 4.3 10x3/uL (4.8-10.8)
[2022-07-03 06:43] LABS: Phosphorus 7.3 mg/dL (2.3-4.7)
[2022-07-03 06:46] LABS: ALT (SGPT) 10 U/L (8-55); AST (SGOT) 17 U/L (5-34); Albumin 2.2 g/dL (3.4-4.8); Alkaline Phosphatase 63 U/L (40-110); Anion Gap 14 mmol/L (10-20); BUN (Urea Nitrogen) 58 mg/dL (9.8-20.1); Bilirubin, Total 0.7 mg/dL (0.2-1.2); Calc. Creatinine Clearance 7 mL/min (70-130); Calcium 6.1 mg/dL (7.8-10.44); Carbon Dioxide 21 mmol/L (23-31); Chloride 113 mmol/L (98-107); Estimated GFR 5; Globulin 1.9 g/dL (2.4-3.5); Glucose 60 mg/dL (83-110); Magnesium 1.3 mg/dL (1.6-2.6); Potassium 2.9 mmol/L (3.5-5.1); Protein, Total 4.1 g/dL (5.8-8.1); Sodium 145 mmol/L (136-145)
[2022-07-03] MEDS: Heparin 5,000 UNITS/ML VIAL SC SCH ×3 (10:25→20:58)
[2022-07-03] MEDS: cloNIDine 0.2 MG TAB PO SCH ×2 (10:26→20:58)
[2022-07-03] MEDS: Amlodipine 5 MG TAB PO SCH ×2 (10:26→20:58)
[2022-07-03 14:52] LABS: ALT (SGPT) 11 U/L (8-55); AST (SGOT) 24 U/L (5-34); Albumin 2.8 g/dL (3.4-4.8); Alkaline Phosphatase 87 U/L (40-110); Anion Gap 18 mmol/L (10-20); BUN (Urea Nitrogen) 71 mg/dL (9.8-20.1); Bilirubin, Total 0.8 mg/dL (0.2-1.2); Calc. Creatinine Clearance 5 mL/min (70-130); Calcium 7.7 mg/dL (7.8-10.44); Carbon Dioxide 25 mmol/L (23-31); Chloride 103 mmol/L (98-107); Estimated GFR 4; Globulin 2.7 g/dL (2.4-3.5); Glucose 91 mg/dL (83-110); Potassium 3.7 mmol/L (3.5-5.1); Protein, Total 5.5 g/dL (5.8-8.1); Sodium 142 mmol/L (136-145)
[2022-07-03] MEDS: hydrALAZINE 25 MG TAB PO SCH ×2 (15:33→20:58)
[2022-07-03] MEDS: Zolpidem Tartrate 5 MG TAB PO SCH (20:58)
[2022-07-04 05:11] LABS: #Basophils 0.1 thou/uL (0.0-0.2); #Eosinphils 0.2 thou/uL (0.0-0.7); #Lymphocytes 1.4 thou/uL (1.20-3.40); #Monocytes 0.4 thou/uL (0.11-0.59); %Basophils 1.3 % (0.0-1.0); %Eosinophils 3.8 % (0.0-10.0); %Lymphocytes 34.6 % (21.0-51.0); %Monocytes 9.7 % (0.0-10.0); %Neutrophils 50.6 % (42.0-75.0); Hemoglobin 9.7 g/dL (12.0-16.0); Mean Corpuscular HGB CONC 32.2 g/dL (32.0-36.0); Mean Corpuscular Hemoglobin 30.7 pg (27.0-31.0); Mean Corpuscular Volume 95.5 fl (78.0-98.0); Mean Platelet Volume 9.1 fL (7.4-10.4); Platelet Count 128 10x3/uL (130-400); RBC Distribution Width 13.1 % (11.5-14.5); Red Blood Cell (RBC) Count 3.14 mill/uL (4.20-5.40)
[2022-07-04 05:41] LABS: ALT (SGPT) 11 U/L (8-55); AST (SGOT) 21 U/L (5-34); Albumin 2.6 g/dL (3.4-4.8); Alkaline Phosphatase 85 U/L (40-110); Anion Gap 10 mmol/L (10-20); BUN (Urea Nitrogen) 31 mg/dL (9.8-20.1); Bilirubin, Total 0.6 mg/dL (0.2-1.2); Calc. Creatinine Clearance 10 mL/min (70-130); Calcium 7.6 mg/dL (7.8-10.44); Carbon Dioxide 29 mmol/L (23-31); Chloride 102 mmol/L (98-107); Estimated GFR 7; Globulin 2.4 g/dL (2.4-3.5); Glucose 80 mg/dL (83-110); Potassium 4.3 mmol/L (3.5-5.1); Sodium 137 mmol/L (136-145)
[2022-07-04] MEDS ORDERED: hydrALAZINE 25 MG TAB PO SCH ×3 (09:00→21:00)
[2022-07-04] MEDS: Amlodipine 5 MG TAB PO SCH ×2 (09:11→21:07)
[2022-07-04] MEDS: Aspirin 81 mg Enteric Coated Tablet PO SCH (09:11)
[2022-07-04] MEDS: cloNIDine 0.2 MG TAB PO SCH ×2 (09:11→21:08)
[2022-07-04] MEDS: Heparin 5,000 UNITS/ML VIAL SC SCH ×3 (09:12→21:08)
[2022-07-04] MEDS ORDERED: cloNIDine 0.2 MG TAB PO SCH (16:15)
[2022-07-04] MEDS: Zolpidem Tartrate 5 MG TAB PO SCH (21:07)
[2022-07-04] MEDS: hydrALAZINE 25 MG TAB PO SCH (21:09)
[2022-07-05] MEDS: cloNIDine 0.2 MG TAB PO SCH ×2 (08:10→15:55)
[2022-07-05] MEDS: Amlodipine 5 MG TAB PO SCH (08:10)
[2022-07-05] MEDS: Aspirin 81 mg Enteric Coated Tablet PO SCH (08:11)
[2022-07-05] MEDS: Heparin 5,000 UNITS/ML VIAL SC SCH ×2 (08:12→15:55)
[2022-07-05] MEDS ORDERED: Heparin 10,000 UNITS/ 10 ML VIAL ONE (10:14)
[2022-07-05 10:25] LABS: #Eosinphils 0.1 thou/uL (0.0-0.7); #Lymphocytes 1.3 thou/uL (1.20-3.40); #Monocytes 0.2 thou/uL (0.11-0.59); %Basophils 0.9 % (0.0-1.0); %Eosinophils 4.6 % (0.0-10.0); %Lymphocytes 48.3 % (21.0-51.0); %Monocytes 8.3 % (0.0-10.0); %Neutrophils 37.9 % (42.0-75.0); Hemoglobin 9.5 g/dL (12.0-16.0); Mean Corpuscular Hemoglobin 30.8 pg (27.0-31.0); Mean Corpuscular Volume 96.2 fl (78.0-98.0); Mean Platelet Volume 9.2 fL (7.4-10.4); Platelet Count 126 10x3/uL (130-400); RBC Distribution Width 13.3 % (11.5-14.5); Red Blood Cell (RBC) Count 3.09 mill/uL (4.20-5.40); White Blood Cell (WBC) Count 2.7 10x3/uL (4.8-10.8)
[2022-07-05 10:33] LABS: Anion Gap 14 mmol/L (10-20); BUN (Urea Nitrogen) 36 mg/dL (9.8-20.1); Calc. Creatinine Clearance 9 mL/min (70-130); Calcium 7.9 mg/dL (7.8-10.44); Carbon Dioxide 28 mmol/L (23-31); Chloride 103 mmol/L (98-107); Estimated GFR 7; Glucose 106 mg/dL (83-110); Potassium 4.6 mmol/L (3.5-5.1); Sodium 140 mmol/L (136-145)
[2022-07-05] MEDS: hydrALAZINE 25 MG TAB PO SCH ×2 (12:31→15:55)
[2022-07-05 12:35] VITALS: BP 180/85; TEMP 97.5
== END 2022-07-05 15:55 | disposition home or self-care (01) | DRG 304 ==
LOC: SUATTDRO 12:20 → ERS 12:20 → NEURO 17:38
PROVIDERS: ADMIT Family Medicine; ATTEND Internal Medicine
PROC: 5A1D70Z Performance of Urinary Filtration, Intermittent, Less than 6 Hours Per Day (ICD-10-PCS; principal; 2022-07-05)
DX: I16.0 Hypertensive urgency (principal); N18.6 End stage renal disease; N25.81 Secondary hyperparathyroidism of renal origin; C18.9 Malignant neoplasm of colon, unspecified; I50.30 Unspecified diastolic (congestive) heart failure; I13.2 Hypertensive heart and chronic kidney disease with heart failure and with stage 5 chronic kidney disease, or end stage renal disease; E78.5 Hyperlipidemia, unspecified; E11.22 Type 2 diabetes mellitus with diabetic chronic kidney disease; E78.00 Pure hypercholesterolemia, unspecified; E11.42 Type 2 diabetes mellitus with diabetic polyneuropathy; F41.9 Anxiety disorder, unspecified; F32.A Depression, unspecified; Z88.1 Allergy status to other antibiotic agents; Z88.8 Allergy status to other drugs, medicaments and biological substances; Z98.51 Tubal ligation status; Z88.5 Allergy status to narcotic agent; Z79.51 Long term (current) use of inhaled steroids; Z79.82 Long term (current) use of aspirin; Z79.899 Other long term (current) drug therapy
CPT/HCPCS: 36415; 36416; 70450; 71045; 74177; 80048; 80053; 82553; 83690; 83735; 83880; 84100; 84484; 85025; 90935; 93005; 96374; 96375; G0257; J0360; J1642; J1644; J2405; Q9967

== ENCOUNTER 2022-07-13 17:43 | Emergency (ER) | payer MEDICARE ==
[2022-07-13 19:51] LABS: #Basophils 0.1 thou/uL (0.0-0.2); #Eosinphils 0.3 thou/uL (0.0-0.7); #Lymphocytes 1.5 thou/uL (1.20-3.40); #Monocytes 0.5 thou/uL (0.11-0.59); #Neutrophils 2.1 thou/uL (1.40-6.50); %Basophils 1.3 % (0.0-1.0); %Lymphocytes 32.9 % (21.0-51.0); %Monocytes 12.2 % (0.0-10.0); %Neutrophils 47.5 % (42.0-75.0); Hemoglobin 10.6 g/dL (12.0-16.0); Mean Corpuscular HGB CONC 32.1 g/dL (32.0-36.0); Mean Corpuscular Hemoglobin 31.4 pg (27.0-31.0); Mean Corpuscular Volume 97.7 fl (78.0-98.0); Mean Platelet Volume 8.2 fL (7.4-10.4); Platelet Count 202 10x3/uL (130-400); RBC Distribution Width 13.4 % (11.5-14.5); Red Blood Cell (RBC) Count 3.38 mill/uL (4.20-5.40); White Blood Cell (WBC) Count 4.4 10x3/uL (4.8-10.8)
[2022-07-13 20:12] LABS: ALT (SGPT) 16 U/L (8-55); AST (SGOT) 34 U/L (5-34); Alkaline Phosphatase 132 U/L (40-110); Anion Gap 16 mmol/L (10-20); BUN (Urea Nitrogen) 26 mg/dL (9.8-20.1); Bilirubin, Total 0.7 mg/dL (0.2-1.2); Calc. Creatinine Clearance 0 mL/min (70-130); Calcium 8.2 mg/dL (7.8-10.44); Carbon Dioxide 29 mmol/L (23-31); Chloride 103 mmol/L (98-107); Estimated GFR 9; Globulin 2.9 g/dL (2.4-3.5); Glucose 110 mg/dL (83-110); Potassium 3.9 mmol/L (3.5-5.1); Protein, Total 5.9 g/dL (5.8-8.1); Sodium 144 mmol/L (136-145)
== END 2022-07-13 23:30 | disposition home or self-care (01) ==
LOC: ERS 17:43
DX: I13.2 Hypertensive heart and chronic kidney disease with heart failure and with stage 5 chronic kidney disease, or end stage renal disease (principal); C78.7 Secondary malignant neoplasm of liver and intrahepatic bile duct; C78.02 Secondary malignant neoplasm of left lung; C78.01 Secondary malignant neoplasm of right lung; E11.22 Type 2 diabetes mellitus with diabetic chronic kidney disease; N18.6 End stage renal disease; I50.9 Heart failure, unspecified; I25.10 Atherosclerotic heart disease of native coronary artery without angina pectoris; E11.40 Type 2 diabetes mellitus with diabetic neuropathy, unspecified; E78.5 Hyperlipidemia, unspecified; C18.9 Malignant neoplasm of colon, unspecified; Z99.2 Dependence on renal dialysis
CPT/HCPCS: 80053; 85025; 99284; J1642

== ENCOUNTER 2022-11-04 22:34 | Inpatient (IN) | payer MEDICARE, OTHER ==
[2022-11-04 23:43] LABS: #Eosinphils 0.2 thou/uL (0.0-0.7); #Monocytes 0.9 thou/uL (0.11-0.59); #Neutrophils 7.7 thou/uL (1.40-6.50); %Basophils 0.4 % (0.0-1.0); %Eosinophils 1.9 % (0.0-10.0); %Lymphocytes 10.1 % (21.0-51.0); %Neutrophils 78.2 % (42.0-75.0); Mean Corpuscular HGB CONC 32.3 g/dL (32.0-36.0); Mean Corpuscular Hemoglobin 28.6 pg (27.0-31.0); Mean Corpuscular Volume 88.6 fl (78.0-98.0); Mean Platelet Volume 9.2 fL (7.4-10.4); Platelet Count 520 10x3/uL (130-400); RBC Distribution Width 14.3 % (11.5-14.5); White Blood Cell (WBC) Count 9.9 10x3/uL (4.8-10.8)
[2022-11-05 00:07] LABS: ALT (SGPT) Less than 7 U/L (8-55); AST (SGOT) 25 U/L (5-34); Alkaline Phosphatase 179 U/L (40-110); Anion Gap 28 mmol/L (10-20); BUN (Urea Nitrogen) 84 mg/dL (9.8-20.1); Bilirubin, Total 0.7 mg/dL (0.2-1.2); Calc. Creatinine Clearance 0 mL/min (70-130); Calcium 8.5 mg/dL (7.8-10.44); Carbon Dioxide 21 mmol/L (23-31); Chloride 95 mmol/L (98-107); Estimated GFR 3; Globulin 3.6 g/dL (2.4-3.5); Magnesium 2.1 mg/dL (1.6-2.6); Potassium 4.3 mmol/L (3.5-5.1); Protein, Total 6.6 g/dL (5.8-8.1); Sodium 140 mmol/L (136-145)
[2022-11-05 00:10] LABS: Glucose 41 mg/dL (83-110)
[2022-11-05] MEDS ORDERED: Dextrose 50% Abboject 50 ML SYRINGE ONE (00:12)
[2022-11-05 00:28] LABS: CKMB 1.5 ng/mL (0-6.6)
[2022-11-05 00:44] LABS: Actual Bicarbonate (HCO3v) 22.5 mEq/L (22-28); Base Excess -1.7 mEq/L (-2.0 to +3.0); Chloride (VBG) 96 mmol/L (98-106); Hematocrit-VBG 28 % (36.0-47.0); Hemoglobin (Hb) 9.4 g/dL (11.7-16.1); Potassium (VBG) 4.33 mmol/L (3.70-5.30); Sodium 136.9 mmol/L (133-146); pH (venous) 7.414 (7.32-7.43)
[2022-11-05] MEDS ORDERED: Ondansetron PF 4 MG/2 ML Vial IVP PRN (01:20)
[2022-11-05] MEDS ORDERED: Glucagon 1 MG/ML KIT IM PRN (01:23)
[2022-11-05] MEDS ORDERED: Dextrose 50% Abboject 50 ML SYRINGE SLOW IVP PRN (01:23)
[2022-11-05 03:33] LABS: #Eosinphils 0.2 thou/uL (0.0-0.7); #Monocytes 0.7 thou/uL (0.11-0.59); #Neutrophils 7.6 thou/uL (1.40-6.50); %Basophils 0.4 % (0.0-1.0); %Lymphocytes 9.2 % (21.0-51.0); %Monocytes 7.8 % (0.0-10.0); %Neutrophils 80.1 % (42.0-75.0); Hemoglobin 8.1 g/dL (12.0-16.0); Mean Corpuscular HGB CONC 32.4 g/dL (32.0-36.0); Mean Corpuscular Hemoglobin 28.6 pg (27.0-31.0); Mean Corpuscular Volume 88.3 fl (78.0-98.0); Platelet Count 458 10x3/uL (130-400); RBC Distribution Width 14.2 % (11.5-14.5); Red Blood Cell (RBC) Count 2.83 mill/uL (4.20-5.40); White Blood Cell (WBC) Count 9.5 10x3/uL (4.8-10.8)
[2022-11-05 04:06] LABS: Anion Gap 24 mmol/L (10-20); BUN (Urea Nitrogen) 52 mg/dL (9.8-20.1); Calc. Creatinine Clearance 0 mL/min (70-130); Calcium 8.4 mg/dL (7.8-10.44); Carbon Dioxide 21 mmol/L (23-31); Chloride 97 mmol/L (98-107); Estimated GFR 5; Glucose 67 mg/dL (83-110); Potassium 4.2 mmol/L (3.5-5.1); Sodium 138 mmol/L (136-145)
[2022-11-05 04:10] LABS: Troponin I 0.075 ng/mL (< 0.028)
[2022-11-05 04:29] LABS: Hep B Core Total Ab Non-Reactive (NonReactive); Hep B Core Total Index 0.18 S/CO (0-0.79)
[2022-11-05 04:31] LABS: Hep C IgG Ab Non-Reactive S/CO (NonReactive); Hep C Index 0.11 S/CO (0-0.79)
[2022-11-05 05:36] LABS: HBSAB Concentration 3.37 mIU/mL; Hep B Surf AB Non-Reactive (NonReactive)
[2022-11-05 05:37] LABS: HBSAg Index 1.82 S/CO (0-0.99)
[2022-11-05 05:38] LABS: Hep B Surf Ag Reflx Confirmation S/CO (NonReactive)
[2022-11-05 06:48] VITALS: BMI 13.3
[2022-11-05] MEDS ORDERED: Heparin 10,000 UNITS/ 10 ML VIAL ONE (09:05)
[2022-11-05] MEDS: Heparin 5,000 UNITS/ML VIAL SC SCH ×2 (09:14→22:05)
[2022-11-05 12:52] LABS: Iron 33 ug/dL (50-170)
[2022-11-05 12:53] LABS: Iron Binding Capacity, Total 100 mcg/dL (265-497)
[2022-11-05] MEDS: hydrALAZINE 25 MG TAB PO SCH ×3 (15:30→22:18)
[2022-11-05] MEDS: cloNIDine 0.2 MG TAB PO SCH ×2 (15:31→22:04)
[2022-11-05] MEDS ORDERED: Zolpidem Tartrate 5 MG TAB PO SCH (21:00)
[2022-11-05] MEDS: traMADol HCl 50 MG TAB PO PRN (22:03)
[2022-11-06 04:12] LABS: Hep B Surface AG-Rflx Sendout Negative (Negative)
[2022-11-06] MEDS: hydrALAZINE 25 MG TAB PO SCH ×3 (09:16→20:50)
[2022-11-06] MEDS: Aspirin 81 mg Enteric Coated Tablet PO SCH (09:16)
[2022-11-06] MEDS: cloNIDine 0.2 MG TAB PO SCH ×3 (09:16→20:50)
[2022-11-06] MEDS: Heparin 5,000 UNITS/ML VIAL SC SCH ×2 (09:16→20:51)
[2022-11-06] MEDS: traMADol HCl 50 MG TAB PO PRN ×2 (09:18→14:43)
[2022-11-06 15:41] LABS: Campy jejuni + coli by PCR Negative (Negative); STEC Shiga Toxin 1+2 Negative (Negative); Salmonella spp. by PCR Negative (Negative); Shigella spp + EIEC by PCR Negative (Negative)
[2022-11-06 16:30] LABS: #Eosinphils 0.2 thou/uL (0.0-0.7); #Monocytes 0.7 thou/uL (0.11-0.59); #Neutrophils 4.5 thou/uL (1.40-6.50); %Basophils 0.5 % (0.0-1.0); %Eosinophils 2.3 % (0.0-10.0); %Lymphocytes 17.4 % (21.0-51.0); %Monocytes 10.6 % (0.0-10.0); Hemoglobin 8.5 g/dL (12.0-16.0); Mean Corpuscular HGB CONC 30.7 g/dL (32.0-36.0); Mean Corpuscular Hemoglobin 28.5 pg (27.0-31.0); Mean Platelet Volume 9.1 fL (7.4-10.4); Platelet Count 379 10x3/uL (130-400); RBC Distribution Width 14.6 % (11.5-14.5); Red Blood Cell (RBC) Count 2.98 mill/uL (4.20-5.40); White Blood Cell (WBC) Count 6.5 10x3/uL (4.8-10.8)
[2022-11-06 17:00] LABS: ALT (SGPT) Less than 7 U/L (8-55); AST (SGOT) 25 U/L (5-34); Albumin 2.7 g/dL (3.4-4.8); Alkaline Phosphatase 179 U/L (40-110); Anion Gap 20 mmol/L (10-20); BUN (Urea Nitrogen) 43 mg/dL (9.8-20.1); Bilirubin, Total 0.6 mg/dL (0.2-1.2); Calc. Creatinine Clearance 5 mL/min (70-130); Calcium 8.2 mg/dL (7.8-10.44); Carbon Dioxide 22 mmol/L (23-31); Chloride 98 mmol/L (98-107); Estimated GFR 6; Globulin 3.3 g/dL (2.4-3.5); Glucose 122 mg/dL (83-110); Potassium 4.4 mmol/L (3.5-5.1); Sodium 136 mmol/L (136-145)
[2022-11-07] MEDS: Aspirin 81 mg Enteric Coated Tablet PO SCH (07:45)
[2022-11-07] MEDS: cloNIDine 0.2 MG TAB PO SCH ×3 (07:45→20:53)
[2022-11-07] MEDS: hydrALAZINE 25 MG TAB PO SCH ×3 (07:46→20:53)
[2022-11-07] MEDS: Heparin 5,000 UNITS/ML VIAL SC SCH ×2 (07:46→20:53)
[2022-11-07] MEDS ORDERED: Heparin 10,000 UNITS/ 10 ML VIAL ONE (10:53)
[2022-11-07] MEDS: traMADol HCl 50 MG TAB PO PRN ×2 (14:49→20:55)
[2022-11-08] MEDS: Aspirin 81 mg Enteric Coated Tablet PO SCH (09:00)
[2022-11-08] MEDS: cloNIDine 0.2 MG TAB PO SCH ×3 (09:00→20:22)
[2022-11-08] MEDS: hydrALAZINE 25 MG TAB PO SCH ×3 (09:00→20:23)
[2022-11-08] MEDS: Heparin 5,000 UNITS/ML VIAL SC SCH ×2 (09:00→20:23)
[2022-11-08] MEDS: traMADol HCl 50 MG TAB PO PRN ×2 (09:03→20:23)
[2022-11-08] MEDS ORDERED: EPOETIN ALFA-EPBX (ESRD) 10,000 UNITS/ML VIAL SC SCH (11:45)
[2022-11-09 08:07] LABS: #Eosinphils 0.3 thou/uL (0.0-0.7); #Monocytes 1.2 thou/uL (0.11-0.59); #Neutrophils 6.8 thou/uL (1.40-6.50); %Basophils 0.3 % (0.0-1.0); %Eosinophils 3.2 % (0.0-10.0); %Lymphocytes 12.9 % (21.0-51.0); %Neutrophils 71.1 % (42.0-75.0); Hemoglobin 7.3 g/dL (12.0-16.0); Mean Corpuscular HGB CONC 30.4 g/dL (32.0-36.0); Mean Corpuscular Hemoglobin 27.9 pg (27.0-31.0); Mean Corpuscular Volume 91.6 fl (78.0-98.0); Mean Platelet Volume 9.2 fL (7.4-10.4); Platelet Count 294 10x3/uL (130-400); RBC Distribution Width 14.9 % (11.5-14.5); Red Blood Cell (RBC) Count 2.62 mill/uL (4.20-5.40); White Blood Cell (WBC) Count 9.6 10x3/uL (4.8-10.8)
[2022-11-09 08:32] LABS: Anion Gap 15 mmol/L (10-20); BUN (Urea Nitrogen) 45 mg/dL (9.8-20.1); Calc. Creatinine Clearance 7 mL/min (70-130); Calcium 8.4 mg/dL (7.8-10.44); Carbon Dioxide 28 mmol/L (23-31); Chloride 98 mmol/L (98-107); Estimated GFR 9; Glucose 121 mg/dL (83-110); Potassium 4.4 mmol/L (3.5-5.1); Sodium 137 mmol/L (136-145)
[2022-11-09] MEDS: traMADol HCl 50 MG TAB PO PRN ×2 (08:56→21:05)
[2022-11-09] MEDS: cloNIDine 0.2 MG TAB PO SCH ×3 (08:56→21:07)
[2022-11-09] MEDS: Aspirin 81 mg Enteric Coated Tablet PO SCH (08:56)
[2022-11-09] MEDS: hydrALAZINE 25 MG TAB PO SCH ×3 (08:57→21:06)
[2022-11-09] MEDS: Heparin 5,000 UNITS/ML VIAL SC SCH ×2 (08:57→21:07)
[2022-11-09 13:00] LABS: Hemoglobin 7.6 g/dL (12.0-16.0)
[2022-11-09] MEDS: Amlodipine 5 MG TAB PO SCH (21:06)
[2022-11-10 06:46] LABS: Hemoglobin 7.3 g/dL (12.0-16.0)
[2022-11-10] MEDS: Aspirin 81 mg Enteric Coated Tablet PO SCH (08:29)
[2022-11-10] MEDS: hydrALAZINE 25 MG TAB PO SCH ×3 (08:29→21:10)
[2022-11-10] MEDS: cloNIDine 0.2 MG TAB PO SCH ×3 (08:29→21:11)
[2022-11-10] MEDS: Amlodipine 5 MG TAB PO SCH ×2 (08:29→21:11)
[2022-11-10] MEDS: Heparin 5,000 UNITS/ML VIAL SC SCH ×2 (08:30→21:11)
[2022-11-10] MEDS: traMADol HCl 50 MG TAB PO PRN (08:34)
[2022-11-10] MEDS ORDERED: Heparin 10,000 UNITS/ 10 ML VIAL ONE (09:48)
[2022-11-10 15:40] LABS: #Eosinphils 0.3 thou/uL (0.0-0.7); #Monocytes 1.2 thou/uL (0.11-0.59); #Neutrophils 6.6 thou/uL (1.40-6.50); %Basophils 0.4 % (0.0-1.0); %Eosinophils 2.6 % (0.0-10.0); %Lymphocytes 13.9 % (21.0-51.0); %Neutrophils 69.4 % (42.0-75.0); Hemoglobin 9.1 g/dL (12.0-16.0); Mean Corpuscular HGB CONC 31.7 g/dL (32.0-36.0); Mean Corpuscular Hemoglobin 28.4 pg (27.0-31.0); Mean Corpuscular Volume 89.7 fl (78.0-98.0); Mean Platelet Volume 9.7 fL (7.4-10.4); Platelet Count 322 10x3/uL (130-400); RBC Distribution Width 15.4 % (11.5-14.5); White Blood Cell (WBC) Count 9.5 10x3/uL (4.8-10.8)
[2022-11-10 20:56] VITALS: BP 136/76; TEMP 98.8
== END 2022-11-10 21:22 | disposition home or self-care (01) | DRG 435 ==
LOC: ERS 22:34 → ERHOLD 11-05 01:16 → 2NO 11-05 12:57 → SURG B 11-07 17:26
PROVIDERS: ADMIT Internal Medicine; ATTEND Internal Medicine
PROC: 5A1D70Z Performance of Urinary Filtration, Intermittent, Less than 6 Hours Per Day (ICD-10-PCS; 2022-11-05)
PROC: 5A1D70Z Performance of Urinary Filtration, Intermittent, Less than 6 Hours Per Day (ICD-10-PCS; 2022-11-07)
PROC: 30233N1 Transfusion of Nonautologous Red Blood Cells into Peripheral Vein, Percutaneous Approach (ICD-10-PCS; principal; 2022-11-10)
PROC: 5A1D70Z Performance of Urinary Filtration, Intermittent, Less than 6 Hours Per Day (ICD-10-PCS; 2022-11-10)
DX: C78.7 Secondary malignant neoplasm of liver and intrahepatic bile duct (principal); I50.33 Acute on chronic diastolic (congestive) heart failure; N18.6 End stage renal disease; C18.9 Malignant neoplasm of colon, unspecified; I13.2 Hypertensive heart and chronic kidney disease with heart failure and with stage 5 chronic kidney disease, or end stage renal disease; E87.20 Acidosis, unspecified; E44.0 Moderate protein-calorie malnutrition; Z68.1 Body mass index [BMI] 19.9 or less, adult; I50.32 Chronic diastolic (congestive) heart failure; R64 Cachexia; E11.22 Type 2 diabetes mellitus with diabetic chronic kidney disease; E78.5 Hyperlipidemia, unspecified; I25.10 Atherosclerotic heart disease of native coronary artery without angina pectoris; R53.81 Other malaise; I16.0 Hypertensive urgency; E11.649 Type 2 diabetes mellitus with hypoglycemia without coma; E11.40 Type 2 diabetes mellitus with diabetic neuropathy, unspecified; D63.1 Anemia in chronic kidney disease; Z79.899 Other long term (current) drug therapy; Z88.1 Allergy status to other antibiotic agents; Z88.8 Allergy status to other drugs, medicaments and biological substances; Z79.82 Long term (current) use of aspirin; Z79.51 Long term (current) use of inhaled steroids; Z98.42 Cataract extraction status, left eye; Z98.890 Other specified postprocedural states; Z98.51 Tubal ligation status; Z91.158 Patient's noncompliance with renal dialysis for other reason
CPT/HCPCS: 36415; 36416; 36430; 71045; 74176; 80048; 80053; 82553; 82728; 82805; 83540; 83550; 83735; 84484; 85014; 85018; 85025; 86704; 86850; 86900; 86901; 87324; 87340; 87449; 87505; 90935; 93005; 93306; 96374; G0257; J1644; J7999; P9016; Q5105